=== PATIENT | female | born 1935 | race Caucasian/White ===

== ENCOUNTER 2023-08-27 18:59 | Inpatient (IN) | payer MEDICARE, BC, SELFPAY ==
[2023-08-27] VITALS (11 sets, daily range): BP systolic 104–134; BP diastolic 54–94; BMI 31.2; BMI 30.4
[2023-08-27 15:04] LABS: % Basophils 0.9 % (0-2); % Eosinophils 1.8 % (0-6); % Immature Granulocytes 0.6 % (0-0.5); % Lymphocytes 16.9 % (20.5-51.1); % Monocytes 6.4 % (1.7-9.3); % Neutrophils 73.4 % (42.2-75.2); Absolute Basophils 0.1 10^3/uL (0-0.2); Absolute Eosinophils 0.2 10^3/uL (0-0.7); Absolute Immature Granulocytes 0.1 10^3/uL (0-0.05); Absolute Lymphocytes 1.4 10^3/uL (1.2-3.4); Absolute Monocytes 0.5 10^3/uL (0.1-0.6); Hematocrit 40.3 % (37.0-47.0); Hemoglobin 13.2 g/dL (12.0-16.0); Mean Corp Hgb Conc. 32.8 g/dL (33.0-37.0); Mean Corpuscular Hgb 32.4 pg (27.0-31.0); Mean Corpuscular Volume 98.8 fL (81.0-99.0); Mean Platelet Volume 10.4 fL (7.4-10.4); Nucleated Red Blood Cells % 0 %; Platelet Count 217 10^3/uL (130-400); Red Blood Cell Count 4.08 10^6/uL (4.20-5.40); Red Cell Dist. Width 13.6 % (11.5-14.5); White Blood Cell Count 8.2 10^3/uL (4.8-10.8)
[2023-08-27 15:16] LABS: ALT (SGPT) 52 U/L (0-35); AST (SGOT) 47 U/L (14-36); Albumin 3.8 g/dl (3.5-5.0); Alkaline Phosphatase 74 U/L (38-126); Blood Urea Nitrogen 55 mg/dl (7-17); Calcium 9.4 mg/dl (8.4-10.2); Carbon Dioxide 29 mmol/L (22-30); Chloride 102 mmol/L (98-107); Glucose 99 mg/dl (70-99); Potassium 3.9 mmol/L (3.5-5.1); Sodium 138 mmol/L (135-145); Total Bilirubin 0.7 mg/dl (0.2-1.3); Total Protein 6.5 g/dl (6.3-8.2); eGFR 17.32
[2023-08-27 16:31] LABS: Magnesium 2.4 mg/dl (1.6-2.3)
--- NOTE | 2023-08-27 16:48 | ED.GENMED ---
Addendum entered and electronically signed by Aleksandr Marie DO 08/27/23 18:14:
Update repeat EKG shows a flutter with controlled rate heparin has been ordered patient and family updated on plan of care
Original Note:
History of Present Illness
General
Chief Complaint: Heart Rate Problem
Source: patient, records and family
Exam Limitations: none
Time Seen by Provider: 08/27/23 16:26
Nursing documentation reviewed up to this point in time: agreed with
Travel History
Have you had any contact with someone who has COVID-19?: No
Do you have any symptoms of coronavirus? Fever > 100 degrees, chills, cough, shortness of breath, sore throat, loss of taste or smell, muscle aches, or headache?: No
History of Present Illness
History of Present Illness:
88-year-old female from cardiology office found to be tachycardic she was here for routine visit she has had fatigue shortness of breath difficulty with activities of daily living found to be in A-fib with a rapid ventricular response was a new
issue for her she not on blood thinners, weight has gone down, she not eating or drinking much, states when she drinks she gets some pain in her upper abdomen, she is status post a gallbladder removal social alcohol drinker not excess none recently
She has had no fever or chills, she is not on a blood thinner
Past History
Past History
ED Past Medical History: CAD, CHF, Fibromyalgia, HTN, Hypercholesterolemia, Hypothyroidism, Other (Polymyalgia rheumatica, fatigue, psoriatic arthritis, chronic neck pain, Spinal stenosis, Ulcers, headache, PNA, Interstitial lung disease, Hiatal
hernia, ULcer) and Other (Interstitial lung disease for which she previously used O2 at nighttime--now resolved)
ED Past Surgical History: Cardiac (Stents X3), Cholecystectomy, Orthopedic (Back surgery. You Knee replacements, Laminectomy with fusion, right foot surgery, ) and Other (Hemorrhoidectomy)
Social History
Tobacco: Former smoker
Alcohol: Occasional
Drug: None
Personal:
Living: alone (Daughter staying with patient at this time 09/09/22)
Employment: Retired
Family History
Family History: Other (Noncontributory)
Review of Systems
Review of Systems
All Other Systems: Not applicable
Constitutional: Reports weight loss and fatigue; Denies fever
EENT: Reports no symptoms
Respiratory: Reports trouble breathing
Cardiac: Denies palpitations
ABD/GI: Reports abdominal pain
: Reports no symptoms
Musculoskeletal: Reports no symptoms
Neurological: Reports weakness
Endocrine: Reports no symptoms
Hematologic/Lymphatic: Reports no symptoms
Phy Exam
Physical Exam
Physical Exam:
Physical Exam
General: 88-year-old female tachycardic
Neck: Neck veins are
Heart: Tachycardia
Lungs: no acute respiratory distress. clear bilaterally
Abdomen: Nontender
Neuro: alert and oriented. no focal neurological deficits
Skin: no rash
Psychiatric: well kept. interactive and cooperative
Extremities: Trace edema
Course
Orders/Labs/Results
Orders:
Orders
08/27/23 14:38
Electrocardiogram (*1) Urgent
Reason for Study: Chest Pain
EKG- Treatment ONCE
08/27/23 14:51
Complete Blood Count/With Diff Urgent
Comprehensive Metabolic Panel Urgent
Lipase Urgent
Comment: ADD ON
Magnesium Urgent
Comment: ADD ON
TSH Urgent
Comment: ADD ON
08/27/23 16:00
Add On- LAB Urgent
Tests Added?: TSH/magnesium
08/27/23 16:40
Troponin I Urgent
Diltiazem 125 mg/125 ml Nss [Cardizem] 125 mg in 125 ml IV NOW
Initial dose in mg/hr, then titrate:: 5
Titrate to keep:: Heart rate 80-100 bpm
Titrate by mg/hr:: 5 mg/hr
Frequency of titrations (minutes):: 15
Maximum dose in mg/hr:: 15
Diltiazem HCl [Cardizem] 10 mg IV NOW STA
08/27/23 16:41
Add On- LAB Urgent
Tests Added?: lipase, tsh, mg
CR Chest Portable - 1 View Urgent
Comment:
Reason For Exam: hr 140
Reason Study Needs to be Portable: Patient Unstable
08/27/23 17:15
0.9% Sodium Chloride 1000 ml [Nss] 1,000 ml IV 125 mls/hr
Abnormal Lab Results
08/27/23
14:51
RBC 4.08 L 10^6/uL
(4.20-5.40)
MCH 32.4 H pg
(27.0-31.0)
MCHC 32.8 L g/dL
(33.0-37.0)
Abs Immat Gran (auto) 0.1 H 10^3/uL
(0-0.05)
Immature Gran % 0.6 H %
(0-0.5)
Lymphocytes % 16.9 L %
(20.5-51.1)
BUN 55 H mg/dl
(7-17)
Creatinine 2.6 H mg/dL
(0.6-1.0)
Magnesium 2.4 H mg/dl
(1.6-2.3)
AST 47 H U/L
(14-36)
ALT 52 H U/L
(0-35)
08/27/23 14:51
08/27/23 14:51
Vital Signs
Initial and Last Documented VS:
Initial Vital Signs
Temp Pulse Resp BP Pulse Ox
98.3 F 139 18 127/67 92
08/27/23 14:36 08/27/23 14:36 08/27/23 14:36 08/27/23 14:36 08/27/23 14:36
Last Documented Vital Signs
Temp Pulse Resp BP Pulse Ox
98.3 F 142 20 134/68 97
08/27/23 14:36 08/27/23 16:55 08/27/23 16:30 08/27/23 16:55 08/27/23 16:27
MDM/Problems Addressed
Differential Diagnosis Includes:
A-fib with rapid ventricular response hyperthyroid occult infection valvular disease
MDM/Problems Addressed:
Fatigue shortness of breath rapidly
Chronic conditions affecting care: Cardiomyopathy
Acute Exacerbation and/or Progression of Chronic Illness: Cardiomyopathy
*Radiology
Radiology exam reviewed: preliminary read by ED provider
*Pulse Oximetry
Patient hypoxic: no
*EKG
Interpreted by ED Provider?: Yes
Interpretation: abnormal
Comparison EKG: changes noted
Heart Rate: 140
Rate: tachycardiac
Rhythm: atrial flutter
Ischemia: non-specific ST changes
*Systems [employer] Programming Lead Interpretation
Rate: tachycardiac
Interpretation: abnormal
Heart Rate: 148
Rhythm: a-fib
*Critical Care Note
Total Time (30-74mins, 75-104mins- exclusive of procedures): 30
Update Note
Update Note:
5:10 PM labs are noted chest x-ray pending looks to have acute kidney injury, will start saline hydration hospitalist and despatching and receiving clerk notified of admission
ED Attending Note
-
Portions of this chart may have been created with voice recognition software.� Occasional wrong word or��sound alike� substitutions may have occurred due to the inherent limitations of voice recognition software.
Discharge Plan
Departure
Patient Disposition: Admit
Date of Disposition: 08/27/23
Time of Disposition: 17:10
Admit to: Telemetry
Presentation/result/management discussed w/ accepting MD/DO: Hospitalist
Patient with high blood pressure during this ER visit?: No
Condition: Fair
Covid-19: Not Applicable
Discharge Problem:
Atrial fibrillation with RVR, CAMRON (acute kidney injury)
Prescriptions:
No Action
venlafaxine 75 MG capsule,extended release 24hr
75 mg PO DAILY
prednisone 5 MG tablet
5 mg PO QPM
Patient Comments:
cholecalciferol (vitamin D3) 1,000 UNITS tablet
1,000 units PO QPM
ezetimibe 10 MG tablet
10 mg PO QPM
aspirin 81 MG tablet,delayed release (DR/EC)
81 mg PO HS
omeprazole 40 mg capsule,delayed release(DR/EC)
40 mg PO DAILY
famotidine 20 mg Tablet
20 mg PO HS
therapeutic multivitamin Tablet
1 tab PO QPM
Simponi ARIA
1 dose IV Q8W
levothyroxine 75 mcg Tablet
75 mcg PO DAILY AT 0700 30 Days Qty: 30 0RF
metoprolol succinate 50 mg tablet extended release 24 hr
50 mg PO BID
oxycodone-acetaminophen 10-325 mg tablet
1 tab PO BID PRN (Reason: severe pain)
Patient Comments:
08/27/2023: last filled 08/12/23, 60 tabs for 30 days from [id number]
furosemide 40 mg tablet
40 mg PO DAILY
Interventions
Interventions:
*Risk Screen - Suicide Last Done: 08/27/23 14:36
*General Assessment Last Done: 08/27/23 14:36
*Neglect/Abuse Screening Last Done: 08/27/23 14:36
ED- Fall Risk Assessment Last Done: 08/27/23 16:27
*ED COVID-19 Vaccine History Last Done: 08/27/23 14:36
ED- Cardiac Assessment Last Done: 08/27/23 16:27
ED- Pulmonary Assessment Last Done: 08/27/23 16:27
[2023-08-27] MEDS: CARDIZEM 10 MG IV (16:55)
[2023-08-27 16:56] LABS: Lipase 116 U/L (23-300)
[2023-08-27] MEDS: CARDIZEM 125 IV ×2 (16:58→19:41)
--- NOTE | 2023-08-27 17:02 | EDRN ---
Patient medicated with Cardizem 10mg IV and drip started at 5mg/HR.
[2023-08-27 17:21] LABS: TSH 5.21 uIU/ml (0.47-4.68)
[2023-08-27] MEDS: NSS 1000 IV ×2 (17:45→21:26)
[2023-08-27 17:50] LABS: Troponin I 0.152 ng/ml
--- NOTE | 2023-08-27 17:56 | HPS.HSE ---
Family Physician
-
Family Physician: NOT KNOW UNKNOWN - PT DOES
Chief Complaint
-
shortness of breath
History of Present Illness
88-year-old female past medical history of coronary artery disease status post stents, HFpEF, mild aortic stenosis, interstitial lung disease on 2 L at bedtime, CKD 3, hypertension, hyperlipidemia, hypothyroidism, polymyalgia rheumatica,
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 Patient had routine visit with lighting engineering technician
today. She was found to be in A-fib with RVR at lighting engineering technician office. No prior history of A-fib. She has been having shortness of breath with minimal exertion for the past several months and fatigue. She denies any chest pain or palpitations or
dizziness. She denies any lower extreme edema. She follows fluid restriction and has been having very dry mouth recently.
She has also been complaining of abdominal pain attacks that occur whenever she drinks liquids. Pain last 15 minutes and then subsides. She denies any abdominal distention. She sometimes feels nauseous but denies any vomiting. She denies any
diarrhea or constipation. She has lost 20 pounds in the past 6 months but she has not been eating or drinking much. She does have some difficulty swallowing solids but not liquids.
She denies any blood in the stool or black stool. She did have an episode of hemorrhoidal bleeding in the past which self resolved.
She is a former smoker. She rarely drinks alcohol.
Medical History
Past Medical History
Past Medical History: Reports Other ( coronary artery disease status post stents, HFpEF, mild aortic stenosis, interstitial lung disease on 2 L at bedtime, CKD 3, hypertension, hyperlipidemia, hypothyroidism, polymyalgia rheumatica, fibromyalgia,
psoriatic arthritis, cervical radiculopathy, spinal stenosis, hiatal hernia, anxiety, susp)
Past Surgical History: Reports Other (Cardiac (Stents X3), Cholecystectomy, Orthopedic (Back surgery. You Knee replacements, Laminectomy with fusion, right foot surgery, ) and Other (Hemorrhoidectomy))
Social History
Tobacco: Former Smoker
Alcohol: Occasional
Drug: None
Family History
Family History: Not pertinent
Allergies / Home Medications
Allergies reflects when Allergies were last updated in [employer].
Home Medications with original date entered in [employer]
Allergy/Medication List:
Allergies
Allergy/AdvReac Type Severity Reaction Status Date / Time
hydroxychloroquine sulfate Allergy Rash Verified 08/27/23 14:35
[From Plaquenil]
Penicillins Allergy Itching Verified 08/27/23 14:35
Home Medications
venlafaxine 75 mg capsule,extended release 24 hr 75 mg PO DAILY Mental Health/Anxiety 12/09/17
prednisone 5 mg tablet 5 mg PO QPM INFLAMMATION 01/05/18
aspirin 81 mg tablet,delayed release 81 mg PO HS Blood clot prevention/tx 08/11/18
cholecalciferol (vitamin D3) 25 mcg (1,000 unit) tablet 1,000 units PO QPM Supplement 08/11/18
ezetimibe 10 mg tablet 10 mg PO QPM High cholesterol 08/11/18
omeprazole 40 mg capsule,delayed release 40 mg PO DAILY Gastrointestinal issue 09/09/22
famotidine 20 mg tablet 20 mg PO HS Gastrointestinal Issue 03/03/23
Simponi ARIA 1 dose IV Q8W 06/03/23
therapeutic multivitamin 1 tab PO QPM 06/03/23
levothyroxine 75 mcg tablet 75 mcg PO DAILY AT 0700 30 days #30 tabs 06/06/23
furosemide 40 mg tablet 40 mg PO DAILY Fluid retention/Swelling 08/27/23
metoprolol succinate 50 mg tablet,extended release 24 hr 50 mg PO BID 08/27/23
oxycodone-acetaminophen 10 mg-325 mg tablet 1 tab PO BID PRN severe pain 08/27/23
Review of Systems
-
History Source: Patient
A 12 point ROS was completed and negative except as noted: Yes
Constitutional: Reports No Symptoms
EENT: Reports No Symptoms
Respiratory: Reports See HPI
Cardiac: Reports No Symptoms
Abdomen/GI: Reports See HPI
: Reports No Symptoms
Musculoskeletal: Reports No Symptoms
Skin: Reports No Symptoms
Neurological: Reports No Symptoms
Endocrine: Reports No Symptoms
Hematologic/Lymphatic: Reports No Symptoms
Psych: Reports No Symptoms
Physical Exam
Vital Signs
Vital Signs
Temp Pulse Resp BP Pulse Ox
98.3 F 141 28 125/79 95
08/27/23 14:36 08/27/23 17:00 08/27/23 17:00 08/27/23 17:00 08/27/23 17:00
Physical Exam
General: Well Developed, Well Nourished and No Apparent Distress
HEENT: NormoCephalic, Moist mucous membranes and Atraumatic
Respiratory: Clear
Cardiac: S1/S2 and Regular Rhythm; No Murmur or Rub
GI: Soft, Non Tender, Non Distended and Normal Bowel Sounds; No Organomegaly
Rectal: Deferred by Provider
Musculoskeletal: No Clubbing, No Cyanosis and No Edema
Skin: No Rash
Neuro: Nonfocal/grossly intact
Laboratory Results
-
08/27/23 14:51
Laboratory Results
Total Bilirubin 0.7 mg/dl (0.2-1.3) 08/27/23 14:51
AST 47 U/L (14-36) H 08/27/23 14:51
ALT 52 U/L (0-35) H 08/27/23 14:51
Alkaline Phosphatase 74 U/L (38-126) 08/27/23 14:51
Troponin I 0.152 ng/ml H* 08/27/23 17:05
Lipase 116 U/L (23-300) 08/27/23 14:51
Data Reviewed
-
Lab Data: Labs Reviewed by me
Old Records: Reviewed
Impression/Plan
-
IMPRESSION:
PLAN:
# New onset atrial fibrillation with RVR
-Cardizem drip started
-Check TSH
-Chads Vasc score of 5
-Start heparin drip
-patient recently had echo in May
-Cardiology consult
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
-Creatinine of 2.6 from 1.5
-IV fluids given in ER, continue gentle maintenance fluids as patient appears dry
# Abdominal pain/dysphagia to solids/weight loss suggestive of underlying GI pathology such as ulcer/esophagitis/GI malignancy
#hx of Hiatal hernia/GERD
-Continue omeprazole, famotidine
-GI consulted
Coronary artery disease status post stents
-hold aspirin since on heparin
Chronic HFpEF
-Hold Lasix
Moderate Mitral Regurgitation
Mild aortic stenosis
Interstitial lung disease on 2 L at bedtime
History of hemorrhoidal bleeding
Essential hypertension
-Continue metoprolol
Hyperlipidemia
-Continue Zetia
Hypothyroidism
-Continue levothyroxine
Polymyalgia rheumatica
-Continue prednisone
Fibromyalgia
-Continue Percocet
Psoriatic arthritis
Cervical radiculopathy
Spinal stenosis
Anxiety
-Continue venlafaxine
History of shingles
Former smoker
Full code
DVT prophylaxis-heparin drip
Cardiac diet
[2023-08-27] MEDS: HEPARIN 25000 UNITS/250 ML IV (18:12)
[2023-08-27] MEDS: HEPARIN 4000 UNITS IV (18:12)
[2023-08-27 18:14] LABS: APTT 31.7 Sec (23.4-35.0)
--- NOTE | 2023-08-27 20:42 | PTCARENOTE ---
pt arrived from ed. with Cardizem gtt at 5 and heparin gtt 9.5. pt aaox3, VSS, tele placed, see MAR and assessment for further details. call valdes within reach.
[2023-08-27] MEDS: THERAGRAN 1 TABLET PO (20:50)
[2023-08-27] MEDS: VITAMIN D3 (cholecalciferol) 25 MCG PO (20:50)
[2023-08-27] MEDS: DELTASONE 5 MG PO (20:50)
[2023-08-27] MEDS: ZETIA 10 MG PO (20:50)
[2023-08-27] MEDS: TOPROL XL 50 MG PO (20:59)
[2023-08-27] MEDS: PEPCID 20 MG PO (20:59)
[2023-08-27 21:13] LABS: Hematocrit 38.2 % (37.0-47.0); Hemoglobin 12.8 g/dL (12.0-16.0); Mean Corp Hgb Conc. 33.5 g/dL (33.0-37.0); Mean Corpuscular Hgb 32.2 pg (27.0-31.0); Mean Platelet Volume 10.5 fL (7.4-10.4); Platelet Count 219 10^3/uL (130-400); Red Blood Cell Count 3.98 10^6/uL (4.20-5.40); Red Cell Dist. Width 13.7 % (11.5-14.5)
[2023-08-28 00:07] LABS: APTT > 200 Sec (23.4-35.0)
[2023-08-28 00:09] LABS: Troponin I 0.142 ng/ml
[2023-08-28 03:01] VITALS: BP 115/61
[2023-08-28 06:00] VITALS: BMI 30.5
[2023-08-28] MEDS: SYNTHROID 75 MCG PO (06:11)
--- NOTE | 2023-08-28 06:43 | W.PN.HOSP.TC ---
Today's Communication/Plan
-
cont hep gtt
hold lasix
gentle IV hydration
monitor renal function
daily weight I/O
Upper GI series evaluation as per GI
Rate control as per Cardio
Assessment / Plan
Assessment / Plan
Physical Exam
General: Well Developed, Well Nourished and No Apparent Distress
HEENT: NormoCephalic, Moist mucous membranes and Atraumatic
Respiratory: Clear
Cardiac:Irregularly Irregular
GI: Soft, Non Tender, Non Distended and Normal Bowel Sounds; No Organomegaly
Musculoskeletal: No Clubbing, No Cyanosis and No Edema
Skin: No Rash
Neuro: AOx3
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
last 15 minutes and then subsides.� reports intermittent nausea denies vomiting.� Reported weight loss 20 pounds in the past 6 months with associate appetite loss.�
# New onset atrial fibrillation with RVR
-Cardizem drip converted to metoprolol as per Cardio
-TSH
-Chads Vasc score of 5
-cont heparin drip
-patient recently had echo in May
-Cardiology consult appreciated
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
-Creatinine of 2.6 from baseline 1.5
-cont IVF
-monitor renal function, consider nephro eval if Cr elevation persists
# Abdominal pain/dysphagia to solids/weight loss suggestive of underlying GI pathology such as ulcer/esophagitis/GI malignancy
#hx of Hiatal hernia/GERD
-Continue omeprazole, famotidine
-GI consult appreciated npo after midnight for upper GI series, Abd US appreciated likely fatty liver disease.
Coronary artery disease status post stents
-hold aspirin since on heparin
Chronic HFpEF
-Hold Lasix
Moderate Mitral Regurgitation�
Mild aortic stenosis
Interstitial lung disease on 2 L at bedtime
History of hemorrhoidal bleeding
Essential hypertension
-Continue metoprolol
Hyperlipidemia
-Continue Zetia
Hypothyroidism
-Continue levothyroxine
Polymyalgia rheumatica
-Continue prednisone
Fibromyalgia
-Continue Percocet
Psoriatic arthritis
Cervical radiculopathy
Spinal stenosis
Anxiety
-Continue venlafaxine
History of shingles
Former smoker
Full code
DVT prophylaxis-heparin drip
GI ppx Protonix
Cardiac diet
I spent a total of 50 minutes with the patient or on the floor. More than 50% of this time involved counseling and coordination of care.
Anticipated Discharge: 24 - 48 hours
Subjective/Interval History
-
Date of Service: August 28, 2023
Seen and examined at bedside in no acute distress resting comfortably in bed. Reports feeling well, appetite/abd symptoms improved since admission. reports palpitations but denies chest pain.
Objective Data
-
Labs:
Laboratory Results
08/27/23 08/27/23 08/28/23
21:07 23:23 06:00
WBC 8.0 Pending
Hgb 12.8 Pending
Hct 38.2 Pending
Plt Count 219 Pending
APTT > 200 H*
Sodium Pending
Potassium Pending
Chloride Pending
Carbon Dioxide Pending
BUN Pending
Creatinine Pending
Glucose Pending
Calcium Pending
Total Bilirubin Pending
AST Pending
ALT Pending
Alkaline Phosphatase Pending
08/28/23
08:10
WBC
Hgb
Hct
Plt Count
APTT Pending
Sodium
Potassium
Chloride
Carbon Dioxide
BUN
Creatinine
Glucose
Calcium
Total Bilirubin
AST
ALT
Alkaline Phosphatase
Vital Signs:
Vital Signs
Temp Pulse Resp BP Pulse Ox
97.7 F 86 18 115/61 95
08/28/23 03:01 08/28/23 03:01 08/28/23 03:01 08/28/23 03:01 08/28/23 03:01
I&O
08/26/23 08/27/23 08/28/23
06:59 06:59 06:59
Intake Total 240 / 240
Balance 240 / 240
[2023-08-28 07:00] VITALS: BP 129/55
[2023-08-28] MEDS: EFFEXOR XR 75 MG PO (07:47)
[2023-08-28] MEDS: PROTONIX 40 MG PO (07:47)
[2023-08-28] MEDS: TOPROL XL 50 MG PO ×2 (07:47→21:02)
[2023-08-28 08:41] LABS: % Basophils 0.4 % (0-2); % Eosinophils 0.9 % (0-6); % Immature Granulocytes 0.3 % (0-0.5); % Lymphocytes 17.9 % (20.5-51.1); % Neutrophils 73.5 % (42.2-75.2); Absolute Eosinophils 0.1 10^3/uL (0-0.7); Absolute Lymphocytes 1.4 10^3/uL (1.2-3.4); Absolute Monocytes 0.5 10^3/uL (0.1-0.6); Absolute Neutrophils 5.6 10^3/uL (1.4-6.5); Hematocrit 36.7 % (37.0-47.0); Hemoglobin 12.1 g/dL (12.0-16.0); Mean Corpuscular Hgb 31.7 pg (27.0-31.0); Mean Corpuscular Volume 96.1 fL (81.0-99.0); Mean Platelet Volume 10.7 fL (7.4-10.4); Nucleated Red Blood Cells % 0 %; Platelet Count 214 10^3/uL (130-400); Red Blood Cell Count 3.82 10^6/uL (4.20-5.40); Red Cell Dist. Width 13.4 % (11.5-14.5); White Blood Cell Count 7.6 10^3/uL (4.8-10.8)
[2023-08-28 08:53] LABS: APTT 91.5 Sec (23.4-35.0)
[2023-08-28 09:08] LABS: ALT (SGPT) 44 U/L (0-35); AST (SGOT) 38 U/L (14-36); Albumin 3.7 g/dl (3.5-5.0); Alkaline Phosphatase 73 U/L (38-126); Blood Urea Nitrogen 53 mg/dl (7-17); Calcium 8.7 mg/dl (8.4-10.2); Carbon Dioxide 25 mmol/L (22-30); Chloride 104 mmol/L (98-107); Estimated Creatinine Clearance 15 ml/min; Glucose 102 mg/dl (70-99); Potassium 3.7 mmol/L (3.5-5.1); Sodium 138 mmol/L (135-145); Total Bilirubin 0.6 mg/dl (0.2-1.3); Total Protein 6.2 g/dl (6.3-8.2); eGFR 18.16
--- NOTE | 2023-08-28 09:18 | CON.GI ---
Addendum entered and electronically signed by Jen Knutson Do, MD 08/28/23 14:52:
I saw and examined the patient.
The CONVERTIBLE TOP INSTALLER's note was reviewed and I agree with the note.
Comment: Leigh is an 88yo W with h/o CAD s/p stent, , ILD on 2L NC who was sent to [facility] from Dr Santos's office for SOB and aflutter. She tells me that she's lost wt and had intermittent abd pain. She does chronically use opioid for spinal
stenosis and no bowel regimen. She denies h/o constipation though. She is known to myself for these intermittent chronic issues for which extensive outpt GI workup had been done which includes MRI 10/2022, fibroscan, EUS, EGD/colonoscopies. Exam
VSS HR to 74. Labs reviewed without anemia. AST/ALT mildly elevated
Impression
- Abd pain with poor PO intake
- Fatty liver
- GERD
- s/p CYY
- Afib with RVR
- CKD
- GERD
- CAD s/p stents
- MR and
- ILD on 2L NC
- HTN
- PMR on steroids
- Hypothyroidism
- Hemorrhoids
- Fibromyalgia
- Anxiety
Recommendations
- Abd US given elevated LFTs
- Prior EGD/colon and MRI reviewed
- C/w cardiac diet, NPO at [facility] for UGI series tomorrow
- C/w PPI and H2B
- Start bowel regimen (miralax daily basis)
Will follow with you
Original Note:
Consultation
-
Date/Time Consultation Requested: 08/27/23 2310
Date/Time Consultation Performed: 08/28/23 0900
Requesting Provider: Dr. Townsend
Performing Provider: Dr. Acevedo/WARREN Fuchs
Reason for Consultation: abdominal pain
Medical History
Chief Complaint / HPI
Chief Complaint: SOB
History of Present Illness:
88yo female with PMH coronary artery disease status post stents, CHF, aortic stenosis, interstitial lung disease on supplemental oxygen 2 L at bedtime, CKD 3, hypertension, hyperlipidemia, hypothyroidism, PMR on chronic steroids, fibromyalgia on
chronic opioids, psoriatic arthritis, cervical radiculopathy, spinal stenosis, hiatal hernia, anxiety, gastroesophageal reflux disease, history of peptic ulcer disease/DU in 2018 with EGD done in January 2023 showing 2 cm hiatal hernia, fundic gland
polyps, erythema in the stomach with negative biopsies. The patient has a history of cholecystectomy with dilatation of the biliary tract with benign prior workup in 2019 with MRI/MRCP and EUS. She has a history of fatty liver but FCR on FibroScan
in December 2020 with normal LFTs. The patient was at a routine cardiology visit yesterday when she was found to be in A-fib with RVR. She had no prior history of A-fib and she had complained of shortness of breath with minimal exertion over the past
several months as well as fatigue. She also complains of intermittent abdominal pain which she calls 'attacks'. We are asked to evaluate for the same. The patient states that she has been having episodes of when she drinks liquids shortly there
after she will have an attack across to her 'stomach'. She states this is different from her abdomen. She states then she will have acute onset of shortness of breath that will last a couple minutes to a couple hours. She states that she will
just wait and let time pass and will not try any maneuvers medications or call somebody. She states that she will have some associated nausea but never vomits with this. She has not noticed any change in her bowel habits. She states that she has
been eating less solids and more liquids. She also has noted some associated solid food dysphagia but has not told anybody. She denies any fevers, chills, vomiting, melena, hematochezia, odynophagia. She does have early satiety and has had
unintentional weight loss although she cannot quantify. Looking back at Hospital records the patient is currently 75 kg, in June she was 76 kg and in February she was 77 to 78 kg.
Past Medical History
Past Medical History: CAD, CHF, Fibromyalgia, GERD, HTN, Hypercholesterolemia and Other (Aortic stenosis, interstitial lung disease, PMR, psoriatic arthritis, cervical radiculopathy, spinal stenosis, hiatal hernia, anxiety, peptic ulcer disease/DU
(2019))
Past Surgical History: Cardiac (Cardiac stent), Cholecystectomy, Orthopedic (Back surgery, bilateral knee replacements, laminectomy with fusion, right foot surgery) and Other (Hemorrhoidectomy)
Social History
Tobacco: Former Smoker
Alcohol: Occasional
Drug: None
Personal:
Employment: Retired
Family History
Family History: Other (No family history of gastrointestinal malignancy or inflammatory bowel disease)
Allergies / Home Medications
Allergy/AdvReac Type Severity Reaction Status Date / Time
hydroxychloroquine sulfate Allergy Rash Verified 08/27/23 14:35
[From Plaquenil]
Penicillins Allergy Itching Verified 08/27/23 14:35
Medication Instructions Recorded
venlafaxine 75 mg capsule,extended 75 mg PO DAILY Mental 12/09/17
release 24 hr Health/Anxiety
prednisone 5 mg tablet 5 mg PO QPM INFLAMMATION 01/05/18
aspirin 81 mg tablet,delayed 81 mg PO HS Blood clot 08/11/18
release prevention/tx
cholecalciferol (vitamin D3) 25 1,000 units PO QPM Supplement 08/11/18
mcg (1,000 unit) tablet
ezetimibe 10 mg tablet 10 mg PO QPM High cholesterol 08/11/18
omeprazole 40 mg capsule,delayed 40 mg PO DAILY Gastrointestinal 09/09/22
release issue
famotidine 20 mg tablet 20 mg PO HS Gastrointestinal Issue 03/03/23
Simponi ARIA 1 dose IV Q8W 06/03/23
therapeutic multivitamin 1 tab PO QPM 06/03/23
levothyroxine 75 mcg tablet 75 mcg PO DAILY AT 0700 30 days 06/06/23
#30 tabs
furosemide 40 mg tablet 40 mg PO DAILY Fluid 08/27/23
retention/Swelling
metoprolol succinate 50 mg 50 mg PO BID 08/27/23
tablet,extended release 24 hr
oxycodone-acetaminophen 10 mg-325 1 tab PO BID PRN severe pain 08/27/23
mg tablet
Review of Systems
-
All other systems: A 12 pt ROS was Negative except as stated above in HPI
Vital Signs
Temp Pulse Resp BP Pulse Ox
98.0 F 78 18 129/55 92
08/28/23 07:00 08/28/23 07:47 08/28/23 07:00 08/28/23 07:47 08/28/23 07:00
Physical Exam
Exam
General: No Apparent Distress
HEENT: Anicteric
Respiratory: Other (Mild inspiratory wheeze right upper lung, fine crackles left base with mild decrease left base)
Cardiac: Irregular Rhythm
GI: Soft, Non Tender, Non Distended and Normal Bowel Sounds
Musculoskeletal: Edema (Trace edema bilateral lower extremity)
Skin: Warm and Dry
Neuro: AO x 3
Psych: Calm
Results
WBC 7.6 10^3/uL (4.8-10.8) 08/28/23 08:04
Hgb 12.1 g/dL (12.0-16.0) 08/28/23 08:04
Hct 36.7 % (37.0-47.0) L 08/28/23 08:04
MCV 96.1 fL (81.0-99.0) 08/28/23 08:04
Plt Count 214 10^3/uL (130-400) 08/28/23 08:04
Absolute Neuts (auto) 5.6 10^3/uL (1.4-6.5) 08/28/23 08:04
APTT 91.5 Sec (23.4-35.0) H 08/28/23 08:04
Sodium 138 mmol/L (135-145) 08/28/23 08:04
Potassium 3.7 mmol/L (3.5-5.1) 08/28/23 08:04
Chloride 104 mmol/L (98-107) 08/28/23 08:04
Carbon Dioxide 25 mmol/L (22-30) 08/28/23 08:04
BUN 53 mg/dl (7-17) H 08/28/23 08:04
Creatinine 2.5 mg/dL (0.6-1.0) H 08/28/23 08:04
Calcium 8.7 mg/dl (8.4-10.2) 08/28/23 08:04
Total Bilirubin 0.6 mg/dl (0.2-1.3) 08/28/23 08:04
AST 38 U/L (14-36) H 08/28/23 08:04
ALT 44 U/L (0-35) H 08/28/23 08:04
Alkaline Phosphatase 73 U/L (38-126) 08/28/23 08:04
Lipase 116 U/L (23-300) 08/27/23 14:51
Diagnostic Image Results:
CXR:
IMPRESSION:
Mild blunting of the left lateral costophrenic angle, stable from previous examinations, and could represent small left pleural effusion versus chronic pleural thickening.
-Type normal cardiac silhouette size with no evidence for pulmonary edema.
Electronically signed by Caleb Lau MD 08/27/2023 9:33 PM
Prior GI Procedures:
---01/21/23 EGD (Do) - Normal esophagus.
�� � � � � � � � � � � - A few gastric polyps. Resected and retrieved.
�� � � � � � � � � � � - Erythematous mucosa in the antrum. Biopsied.
�� � � � � � � � � � � - 2 cm hiatal hernia.
�� � � � � � � � � � � - Normal examined duodenum. Biopsied.
--10/2022 MRI/MRCP: There is central intrahepatic bile duct dilation as well as dilation of the common hepatic duct and the superior to midportion of the common bile duct. Similar appearance to CT examination of December 20, 2018, with no evidence for
bile duct calculus and no evidence for an obstructing mass. These findings are likely physiologic after cholecystectomy. Mild diffuse fatty infiltration of the liver. No evidence of a focal hepatic lesion. Small less than 5 mm cysts involving the
body and tail of the pancreas which are compatible with benign cysts. No imaging follow-up is advised in this 87-year-old patient. 1.3 cm hyperdense cyst arising in the medial lower pole of the left kidney�������
--12/2020 Fibroscan fibrosis score of F0�������
--03/09/[address] Rodriguez CBD dilation s/p cholecystectomy no e/o stones or masses.�������
--12/2019 Abd US revealed fatty infiltration of the liver, no focal hepatic lesion, cholecystectomy, CBD measuring 1.7 cm.�������
--02/[address] Acevedo on LA grade B esophagitis, irregular Z line, antral erythema, 2 cm hiatal hernia, few nonbleeding superficial gastric ulcer with no stigmata of bleeding in the gastric antrum, largest lesion was 3 mm in largest dimension. One
nonbleeding superficial duodenal ulcer with no stigmata of bleeding in the duodenal bulb.�������
--07/28/[address] Acevedo 2 cm hiatal hernia, a few gastric polyps, normal duodenum. Prior duodenal ulcer no longer visible�������
--[address] Pearson small internal hemorrhoids, otherwise normal.
Assessment / Plan
-
88yo female with PMH coronary artery disease status post stents, CHF, aortic stenosis, interstitial lung disease on supplemental oxygen 2 L at bedtime, CKD 3, hypertension, hyperlipidemia, hypothyroidism, PMR on chronic steroids, fibromyalgia on
chronic opioids, psoriatic arthritis, cervical radiculopathy, spinal stenosis, hiatal hernia, anxiety, gastroesophageal reflux disease, history of peptic ulcer disease/DU in 2018 with EGD done in January 2023 showing 2 cm hiatal hernia, fundic gland
polyps, erythema in the stomach with negative biopsies. The patient has a history of cholecystectomy with dilatation of the biliary tract with benign prior workup in 2019 with MRI/MRCP and EUS. She has a history of fatty liver but FCR on FibroScan
in December 2020 with normal LFTs. The patient was at a routine cardiology visit yesterday when she was found to be in A-fib with RVR. She had no prior history of A-fib and she had complained of shortness of breath with minimal exertion over the past
several months as well as fatigue. She also complains of intermittent abdominal pain which she calls 'attacks'. Patient currently on heparin drip, elevated troponin but flat and downward trending 0.140 (0.142, 0.152). Patient did have some solid
breakfast this morning without any complaints. Did have a solid brown bowel movement this morning. Hemoglobin stable and baseline. Patient with CAMRON on CKD. Patient with mildly elevated AST (38)and ALT (52) with normal Alk phos and Bili.
Impression:
Afib with RVR on Heparin gtt
Intermitttent Abdominal pain
Intermittent solid food dysphagia
Mild elevation AST/ALT
CAMRON on CKD
Other chronic conditions: CHF, interstitial lung disease, aortic stenosis, hypertension, hyperlipidemia, hypothyroidism, PMR, spinal stenosis
Plan:
-Continue Pantoprazole 40 mg
-On Famotidine already
-Patient on gentle IVF per IM
-Continue on Heparin gtt and Cardizem gtt
-Check Upper GI with esophagram
-Trend LFTs likely secondary to fatty liver and congestive hepatopathy.
-Obtain US abdomen with dopplers
Data Reviewed
-
Radiology: Report Reviewed by me
Old Records: Reviewed
-
-
Thank you for consultation and allowing me to participate in the patient's care. Please call the [employer] special ed teacher GI physician during the after hours with any questions or concerns.
[2023-08-28] MEDS: NSS 1000 IV (10:51)
[2023-08-28 11:00] VITALS: BP 117/56
[2023-08-28] MEDS: CARDIZEM 125 IV (11:02)
--- NOTE | 2023-08-28 14:42 | CON.CAR ---
Addendum entered and electronically signed by Isidro Valdes DO 08/28/23 18:17:
I saw and examined the patient.
The Senior Net Engineer's note was reviewed and I agree with the note.
Comment:
Plan:
Remains in atrial flutter with improved heart rate control on IV Cardizem. Transition to oral Toprol XL 50 mg twice daily. If heart rates increase could consider resuming IV Cardizem.
Continue IV heparin. IV heparin may be held for any GI procedures that are necessary.
Could eventually consider JIAN cardioversion once no further GI procedures are planned. With good rate control and anticoagulation this could be considered as an outpatient.
Recent echo with preserved EF.
Patient is stable from a cardiac standpoint for further GI workup.
Family was updated.
Original Note:
Consultation
Consultation Request
Date/Time Consultation Requested: 08/27/23 at 2309
Date/Time Consultation Performed: 08/28/23 at 1500
Requesting Provider: Dr. Lawler
Performing Provider: Dr. Santos
Reason for Consultation: Newly diagnosed atrial flutter
Medical History
-
History of Present Illness:
Patient came to ER from the cardiology office yesterday with new atrial flutter but also complains of weight loss and dysphagia, she is now admitted with plan for GI workup and cardiology has been consulted for ongoing atrial flutter. Patient
was seen by Dr. Santos in the office 08/27/2023 and had complaints including severe weakness and poor p.o. intake. He was found to be in atrial flutter with 2-1 block at rest. She has no history of atrial arrhythmia. She was sent to ER
thinking that she would need workup for her abdominal pain and weight loss. The patient has been seen by gastroenterology and the plan is for an upper GI series in the morning. She also had an abdominal ultrasound performed earlier today. In the
meantime she has remained in atrial flutter and is on a Cardizem drip at 5 mg/hr with HRs in the 80s to 90s and she denies any palpitations. She says she has ongoing dyspnea on exertion. Her troponin was elevated initially at 0.152 and trended
down thereafter. She has a history of CAD with previous LAD PCI in 2004, RCA PCI in 2010 and obtuse marginal stent in 2017. Her last ischemic evaluation was May 2018 that showed a small partially reversible inferolateral defect that was
improved from previous stress test.
PMH:
CAD
s/p OM stent 10/08/17 with residual 40% stenosis of mid LAD and 50-60% stenosis of prox PDA
PCI RCA 07/2010 ([facility])
PCI LAD 2004 ([facility])
Chronic HFpEF
HTN
Hypertension
Mild peak/mean 22/13 mmHg and TAM 1.4 cm sq
HTN
Psoriatic arthritis
Polymyalgia rheumatica
Hyperlipidemia
Hx interstitial lung disease on chronic oxygen at night
Hypothyroidism
Anxiety
Fibromyalgia
Chronic dyspnea
Hx cervical radiculopathy
Statin intolerance
Hx left rotator cuff tear
Urethral stone w/ hydronephrosis 01/2018
Shingles 09/2022
Syncope 09/2022 in setting of GI illness/dehydration
Chronic pain syndrome on oxycodone daily
Past Medical History
Past Surgical History: Cardiac (PCI LAD, RCA, OM), Cholecystectomy and Orthopedic
Social History
Tobacco: Former Smoker
Alcohol: Occasional
Family History
Family History: CAD and Hypertension
Allergies / Home Medications
Allergy/AdvReac Type Severity Reaction Status Date / Time
hydroxychloroquine sulfate Allergy Rash Verified 08/27/23 14:35
[From Plaquenil]
Penicillins Allergy Itching Verified 08/27/23 14:35
Medication Instructions Recorded Confirmed Type
venlafaxine 75 mg capsule,extended 75 mg PO DAILY Depression 12/09/17 08/27/23 History
release 24 hr
prednisone 5 mg tablet 5 mg PO QPM INFLAMMATION 01/05/18 08/27/23 History
aspirin 81 mg tablet,delayed 81 mg PO HS Blood clot 08/11/18 08/27/23 History
release prevention/tx
cholecalciferol (vitamin D3) 25 1,000 units PO QPM Supplement 08/11/18 08/27/23 History
mcg (1,000 unit) tablet
ezetimibe 10 mg tablet 10 mg PO QPM High cholesterol 08/11/18 08/27/23 History
omeprazole 40 mg capsule,delayed 40 mg PO DAILY Gastrointestinal 09/09/22 08/27/23 History
release issue
famotidine 20 mg tablet 20 mg PO HS Gastrointestinal Issue 03/03/23 08/27/23 History
Simponi ARIA 1 dose IV Q8W psoriatic arthritis 06/03/23 08/27/23 History
therapeutic multivitamin 1 tab PO QPM Supplement 06/03/23 08/27/23 History
levothyroxine 75 mcg tablet 75 mcg PO DAILY AT 0700 30 days 06/06/23 08/27/23 Rx
#30 tabs
furosemide 40 mg tablet 40 mg PO DAILY Fluid 08/27/23 08/27/23 History
retention/Swelling
metoprolol succinate 50 mg 50 mg PO BID Blood Pressure 08/27/23 08/27/23 History
tablet,extended release 24 hr
oxycodone-acetaminophen 10 mg-325 1 tab PO BID PRN severe pain 08/27/23 08/27/23 History
mg tablet
Review of Systems
-
History Source: Patient and Family (son by phone)
All other systems: Negative unless noted
Physical Exam
Vital Signs
Temp Pulse Resp BP Pulse Ox
97.9 F 74 18 117/56 95
08/28/23 11:00 08/28/23 11:00 08/28/23 11:00 08/28/23 11:00 08/28/23 11:00
General: NAD, AAOX3
HEENT: EOMI, MMM
Heart: Irreg irreg, no murmur
Lungs: CTA B/L without wheeze
Abd: +BS, soft
Ext: No B/L LE edema
Neuro: Nonfocal
Lab Results
08/28/23 08:04
08/28/23 08:04
Troponin I Cancelled 08/28/23 15:00
Impression / Plan
-
PCP: Wilbert Figueroa
Concrete Floater: Dr. Santos
Impression:
Weight loss and dysphagia on admission 08/27/23
Newly diagnosed atrial flutter with RVR 08/27/23
CAMRON
Elevated Troponin
CAD
s/p OM stent 10/08/17 with residual 40% stenosis of mid LAD and 50-60% stenosis of prox PDA
PCI RCA 07/2010 ([facility])
PCI LAD 2004 ([facility])
Chronic HFpEF
HTN
Hypertension
Mild peak/mean 22/13 mmHg and TAM 1.4 cm sq
HTN
Psoriatic arthritis
Polymyalgia rheumatica
Hyperlipidemia
Hx interstitial lung disease on chronic oxygen at night
Hypothyroidism
Anxiety
Fibromyalgia
Chronic dyspnea
Hx cervical radiculopathy
Statin intolerance
Hx left rotator cuff tear
Urethral stone w/ hydronephrosis 01/2018
Shingles 09/2022
Syncope 09/2022 in setting of GI illness/dehydration
Chronic pain syndrome on oxycodone daily
Echo 01/06/18:�Mild LVH, EF 50-55% possible lateral hypokinesis, normal RV, severely dilated LA, Mild to moderate MR, Mild aortic stenosis, peak/mean gradient 29/16, aortic valve area 1.6 cm�, Mild TR, pulmonary pressure 51-56 mmHg
Echo October 2018: Ejection fraction 60-65 percent, mild MR, mild , mild-moderate AI�������
Echo 07/2020: EF 60-65%, mild with MPG 14 mm Hg, TAM 1.7 cm2.
Echo 03/04/23:�EF 55-60% with mild MR, mild , aortic root 4 cm, trace pericardial effusion
Echo 06/04/23: EF 55 to 60%, mild concentric LVH, mild mitral stenosis with mean transmitral gradient 6 mmHg, moderate MR, mild peak/mean gradient 22/13 mmHg and TAM 1.4 cm sq, trace TR with pulmonary artery systolic pressure 26 mmHg mildly
dilated aortic root
Plan:
-Patient came to ER from the cardiology office yesterday with new atrial flutter but also complains of weight loss and dysphagia, she is now admitted with plan for GI workup and cardiology has been consulted for ongoing atrial flutter. Patient
was seen by Dr. Santos in the office 08/27/2023 and had complaints including severe weakness and poor p.o. intake. He was found to be in atrial flutter with 2-1 block at rest. She has no history of atrial arrhythmia. She was sent to ER
thinking that she would need workup for her abdominal pain and weight loss. The patient has been seen by gastroenterology and the plan is for an upper GI series in the morning. She also had an abdominal ultrasound performed earlier today. In the
meantime she has remained in atrial flutter and is on a Cardizem drip at 5 mg/hr with HRs in the 80s to 90s and she denies any palpitations. She says she has ongoing dyspnea on exertion. Her troponin was elevated initially at 0.152 and trended
down thereafter. She has a history of CAD with previous LAD PCI in 2005, RCA PCI in 2010 and obtuse marginal stent in 2017. Her last ischemic evaluation was May 2018 that showed a small partially reversible inferolateral defect that was
improved from previous stress test.
-Talked with patient in room and then called and talked to her son by phone for 7 minutes on 08/28/23.
-Patient remains in atrial flutter with variable block on telemetry is reviewed by me. Recheck ECG in AM. She denies palpitations.
-Will discontinue Cardizem drip but his heart rate seem to be fairly well-controlled on Cardizem drip at 5 mghr and her usual dose of Toprol-XL 50 mg twice daily. If her heart rates increase we can restart the Cardizem drip.
-Recommend continuing with heparin drip. Patient will need eventual JIAN/CV not sure if patient's dyspnea on exertion is related to atrial flutter and poor heart rate control. This is her first documented episode of atrial arrhythmia. Talked with
the patient and her son about eventual transition to OAC in the form of Eliquis once any necessary GI workup completed.
-Initial Troponin 0.152 and trending down thereafter. Patient's son is concerned about ischemia and noted that patient has had increasing LOVELACE for weeks to months. Check echo.
-Outpatient dose of Lasix 40 mg PO daily is on hold due to CAMRON. Follow daily weights.
-EF preserved by last echo 06/04/23. Cont Toprol XL as above. Previously was on spironolactone but this was stopped due to CAMRON and hyperkalemia
[2023-08-28 15:00] VITALS: BP 119/63
--- NOTE | 2023-08-28 15:11 | CM ---
Reviewed chart, met with patient to obtain information for assessment. Patient stated that she lives alone in a single home in a [place] and [place] community. There is one step to enter.
Patient described herself as independent with her ADLs, dressing, bathing, and uses a cane to assist with her ambulation.
Patient expressed that she do fluorescent lamp replacer, cook, clean and do laundry however it is becoming more difficult. Patient drives and can get herself to all of her appointments and do all of her own shopping but again, admitted that it has become a
little harder for her to do.
Patient has a shower chair that she does not use but denied any other DME in her home.
Her daughter and son in law live close by and are supportive. She has never had VN services in the past. She has not been to a SNF.
Patient has a prescription plan and uses [facility] pharmacy in [place] for all of her medications.
Her PCP is, Dr. Wilbert Figueroa.
Patient asked for resources for an aid. Provided her with a list of private aids/web site administrator companies that can assist with fluorescent lamp replacer and errands. Patient was appreciative.
Patient would like to return home when stable but will need to watch for needs.
Plan: Case management will continue to follow and assist with discharge planning. Tentative plan is for home when stable.
[2023-08-28] MEDS: MIRALAX 17 GRAMS PO (15:12)
[2023-08-28 15:36] LABS: APTT 101.4 Sec (23.4-35.0)
[2023-08-28] MEDS: VITAMIN D3 (cholecalciferol) 25 MCG PO (17:23)
[2023-08-28] MEDS: DELTASONE 5 MG PO (17:23)
[2023-08-28] MEDS: THERAGRAN 1 TABLET PO (17:23)
[2023-08-28] MEDS: ZETIA 10 MG PO (17:23)
[2023-08-28 19:52] VITALS: BP 110/55
[2023-08-28] MEDS: PEPCID 20 MG PO (21:02)
[2023-08-28 23:51] VITALS: BP 110/52
[2023-08-29] VITALS (8 sets, daily range): BP systolic 114–149; BP diastolic 53–88; PULSE 68; O2SAT 94; BMI 31.2
[2023-08-29] MEDS: NSS 1000 IV ×2 (01:49→15:32)
[2023-08-29] MEDS: HEPARIN 25000 UNITS/250 ML IV (03:09)
[2023-08-29] MEDS: SYNTHROID 75 MCG PO (06:23)
[2023-08-29 06:27] LABS: Hematocrit 33.9 % (37.0-47.0); Hemoglobin 11.4 g/dL (12.0-16.0); Mean Corp Hgb Conc. 33.6 g/dL (33.0-37.0); Mean Corpuscular Hgb 33.1 pg (27.0-31.0); Mean Corpuscular Volume 98.5 fL (81.0-99.0); Mean Platelet Volume 10.7 fL (7.4-10.4); Platelet Count 177 10^3/uL (130-400); Red Blood Cell Count 3.44 10^6/uL (4.20-5.40); Red Cell Dist. Width 13.8 % (11.5-14.5)
[2023-08-29 06:45] LABS: ALT (SGPT) 39 U/L (0-35); AST (SGOT) 34 U/L (14-36); Albumin 3.3 g/dl (3.5-5.0); Alkaline Phosphatase 66 U/L (38-126); Blood Urea Nitrogen 48 mg/dl (7-17); Calcium 8.3 mg/dl (8.4-10.2); Carbon Dioxide 23 mmol/L (22-30); Chloride 109 mmol/L (98-107); Direct Bilirubin 0.5 mg/dl (0.0-0.4); Estimated Creatinine Clearance 17 ml/min; Glucose 94 mg/dl (70-99); Magnesium 2.4 mg/dl (1.6-2.3); Phosphorus 4.1 mg/dl (2.5-4.5); Potassium 3.5 mmol/L (3.5-5.1); Sodium 139 mmol/L (135-145); Total Bilirubin 0.6 mg/dl (0.2-1.3); Total Protein 5.9 g/dl (6.3-8.2); eGFR 21.17
[2023-08-29 06:51] LABS: APTT 93.9 Sec (23.4-35.0)
[2023-08-29 07:14] LABS: TSH Reflex To Free T4 1.05 uIU/ml (0.47-4.68)
--- NOTE | 2023-08-29 07:35 | W.PN.HOSP.TC ---
Addendum entered and electronically signed by Elvis Lawler MD 08/30/23 07:55:
non-mi related troponin elevation
paroxysmal afib/aflutter
Original Note:
Today's Communication/Plan
-
rate control anticoagulation as per cardio
hold lasix
gentle IV hydration
monitor renal function
daily weight I/O
Assessment / Plan
Assessment / Plan
Physical Exam
General: Well Developed, Well Nourished and No Apparent Distress
HEENT: NormoCephalic, Moist mucous membranes and Atraumatic
Respiratory: Clear
Cardiac:Irregularly Irregular
GI: Soft, Non Tender, Non Distended and Normal Bowel Sounds; No Organomegaly
Musculoskeletal: No Clubbing, No Cyanosis and No Edema
Skin: No Rash
Neuro: AOx3
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
last 15 minutes and then subsides.� reports intermittent nausea denies vomiting.� Reported weight loss 20 pounds in the past 6 months with associate appetite loss.�
# New onset atrial fibrillation with RVR
-Cardizem drip converted to metoprolol as per Cardio
-TSH wnl
-Chads Vasc score of 5
-patient recently had echo in May
-Cardiology consult appreciated hep gtt converted to Eliquis
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
-Creatinine of 2.6 from baseline 1.5
-cont IVF
-monitor renal function, consider nephro eval if Cr elevation persists
# Abdominal pain/dysphagia to solids/weight loss suggestive of underlying GI pathology such as ulcer/esophagitis/GI malignancy
#hx of Hiatal hernia/GERD
-Continue omeprazole, famotidine
-GI consult appreciated Abd US appreciated likely fatty liver disease, Upper GI series appreciated presbyesophagus, no further inpatient GI procedures planned
Coronary artery disease status post stents
-hold aspirin since on heparin
Chronic HFpEF
-Hold Lasix
Moderate Mitral Regurgitation�
Mild aortic stenosis
Interstitial lung disease on 2 L at bedtime
History of hemorrhoidal bleeding
Essential hypertension
-Continue metoprolol
Hyperlipidemia
-Continue Zetia
Hypothyroidism
-Continue levothyroxine
Polymyalgia rheumatica
-Continue prednisone
Fibromyalgia
-Continue Percocet
Psoriatic arthritis
Cervical radiculopathy
Spinal stenosis
Anxiety
-Continue venlafaxine
History of shingles
Former smoker
Full code
DVT prophylaxis-heparin drip
GI ppx Protonix
Cardiac diet
I spent a total of 50 minutes with the patient or on the floor. More than 50% of this time involved counseling and coordination of care.
Anticipated Discharge: 24 - 48 hours
Subjective/Interval History
-
Date of Service: August 29, 2023
Reporting return abd symptoms. Afib perstists but rate controlled.
Objective Data
-
Labs:
Laboratory Results
08/29/23
06:02
WBC 7.0
Hgb 11.4 L
Hct 33.9 L
Plt Count 177
APTT 93.9 H
Sodium 139
Potassium 3.5
Chloride 109 H
Carbon Dioxide 23
BUN 48 H
Creatinine 2.2 H
Glucose 94
Calcium 8.3 L
Total Bilirubin 0.6
AST 34
ALT 39 H
Alkaline Phosphatase 66
Vital Signs:
Vital Signs
Temp Pulse Resp BP Pulse Ox
97.8 F 87 22 129/64 97
08/29/23 03:08 08/29/23 03:08 08/29/23 03:08 08/29/23 03:08 08/29/23 03:08
I&O
08/28/23 08/29/23 08/30/23
06:59 06:59 06:59
Intake Total 240 / 240 1949
Balance 240 / 240 1949
[2023-08-29] MEDS: TOPROL XL 50 MG PO (07:50)
[2023-08-29] MEDS: PROTONIX 40 MG PO (07:50)
[2023-08-29] MEDS: EFFEXOR XR 75 MG PO (07:50)
[2023-08-29] MEDS: MIRALAX 17 GRAMS PO (07:50)
--- NOTE | 2023-08-29 09:49 | PN.CDI ---
CDI
- -
CDI:
Physician Documentation Request
Admit Date: 08/27/23 18:59
Dear Doctor Bucky,
Patient presented to ED from cardiology office when she was found to be tachycardic also complaining of fatigue, shortness of breath.
H&P and hospitalist progress notes states 'New onset atrial fibrillation'
Cardiology states 'newly diagnosed atrial flutter'
08/28 signed EKG states 'atrial flutter with 4:1 AV conduction'
In an attempt to clarify potentially conflicting documentation, please clarify the rhythm:
Atrial fibrillation
Atrial flutter
atrial fibrillation and flutter
Other
Use of terms such as suspected, likely, concern for, or probable (associated with a specific diagnosis that is being evaluated, monitored, or treated as if it exists) are acceptable and can be coded in the inpatient setting, when documented at the
time of discharge.
Thank you,
Sierra Griffin RN, BSN
CDI Specialist
tiger text
Please use your independent medical judgment in providing your response.
--- NOTE | 2023-08-29 09:56 | PN.CDI ---
CDI
- -
CDI:
Physician Documentation Request
Admit Date: 08/27/23 18:59
Dear Doctor Bucky,
Patient presented to ED from cardiology office when she was found to be tachycardic also complaining of fatigue, shortness of breath.
Troponin's resulted as follows:
08/27/23 08/27/23 08/28/23
17:05 23:23 08:04
Troponin I 0.152 H* 0.142 H* 0.140 H*
Could you please provide a diagnosis that supports the above abnormalities and additional evaluation/ monitoring:
Non ischemic myocardial injury
Type II OR demand ischemia
Other
Use of terms such as suspected, likely, concern for, or probable (associated with a specific diagnosis that is being evaluated, monitored, or treated as if it exists) are acceptable and can be coded in the inpatient setting, when documented at the
time of discharge.
Thank you,
Sierra Griffin RN, BSN
CDI Specialist
tiger text
Please use your independent medical judgment in providing your response.
--- NOTE | 2023-08-29 10:20 | W.PN.GI.CBS2 ---
Addendum entered and electronically signed by Sharifa Etienne DO 08/29/23 17:39:
Patient seen and examined independently of [employer]. I agree with her note with my additions below
Leigh is an 88-year-old female with CAD status post stents, aortic stenosis, CHF, interstitial lung disease on 2 L nocturnal, CKD 3, chronic steroid use with PMR and multiple other comorbidities. She is followed by Dr. Acevedo as an outpatient for
chronic abdominal pain and chronic dysphagia. Apparently as an outpatient she does not follow recommendations for anticonstipation. She has had a significant workup in the past with Dr. Acevedo including MRI/MRCP, EUS/EGD.
Patient underwent an endoscopy with Dr. Acevedo in January 2023 with no significant pathology in the stomach or small bowel.
Her last colonoscopy in [address] Pearson was normal
Patient had an upper GI series today with noted tertiary contractions consistent with presbyesophagus. There is no intrinsic or extrinsic mass and no mucosal ulceration with no hiatal hernia or reflux. Gastric mucosal folds are normal in
appearance.
Patient is currently on a heparin drip because of A-fib with RVR. Her troponins are elevated but trending down. Her liver enzymes are normalizing.
Overall, no need for any inpatient GI procedures. Would proceed to any and all cardiac management. I will sign off and she can follow up with Dr. Acevedo.
I discussed with her and her daughter.
Please call us back if we can help in any way
Original Note:
Today's Communication / Plan
-
Await UGI
Assessment / Plan
-
88yo female with PMH coronary artery disease status post stents, CHF, aortic stenosis, interstitial lung disease on supplemental oxygen 2 L at bedtime, CKD 3, hypertension, hyperlipidemia, hypothyroidism, PMR on chronic steroids, fibromyalgia on
chronic opioids, psoriatic arthritis, cervical radiculopathy, spinal stenosis, hiatal hernia, anxiety, gastroesophageal reflux disease, history of peptic ulcer disease/DU in 2019 with EGD done in January 2023 showing 2 cm hiatal hernia, fundic gland
polyps, erythema in the stomach with negative biopsies. The patient has a history of cholecystectomy with dilatation of the biliary tract with benign prior workup in 2019 with MRI/MRCP and EUS. She has a history of fatty liver but FCR on FibroScan
in December 2020 with normal LFTs. The patient was at a routine cardiology visit yesterday when she was found to be in A-fib with RVR. She had no prior history of A-fib and she had complained of shortness of breath with minimal exertion over the past
several months as well as fatigue. She also complains of intermittent abdominal pain which she calls 'attacks'. Patient currently on heparin drip, elevated troponin but flat and downward trending 0.140 (0.142, 0.152). Patient did have some solid
breakfast this morning without any complaints. Did have a solid brown bowel movement this morning. Hemoglobin stable and baseline. Patient with CAMRON on CKD. Patient with mildly elevated AST (38)and ALT (52) with normal Alk phos and Bili. LFTs
continue to down trend.
Impression:
Aflutter with RVR on Heparin gtt. Cardiology gave clearance if GI procedures needed.
Intermittent Abdominal pain
Intermittent solid food dysphagia
Mild elevation AST/ALT
CAMRON on CKD
Self reported weight loss-> documented weights do not support this.
Other chronic conditions: CHF, interstitial lung disease, aortic stenosis, hypertension, hyperlipidemia, hypothyroidism, PMR, spinal stenosis
-Patient on chronic steroids and opiates.
Plan:
-Continue Pantoprazole 40 mg and Famotidine
-Await Upper GI with esophagram
-Trend LFTs likely secondary to fatty liver and congestive hepatopathy, these are trending down.
-Continue Miralax
-Further recommendations to be forthcoming
Subjective
Subjective
Date of Service: August 29, 2023
Patient states 'I have that feeling again' in her abdomen. Patient getting ready to UGI/esophagram. The patient HR is Afib but 82. She is not SOB. She states 'I wonder if it is nerves'. She is NPO for the test.
Objective
Data Reviewed
Laboratory Data:
Laboratory Results
08/29/23 06:02
08/29/23 06:02
Laboratory Results
APTT 93.9 Sec (23.4-35.0) H 08/29/23 06:02
Phosphorus 4.1 mg/dl (2.5-4.5) 08/29/23 06:02
Magnesium 2.4 mg/dl (1.6-2.3) H 08/29/23 06:02
Total Bilirubin 0.6 mg/dl (0.2-1.3) 08/29/23 06:02
AST 34 U/L (14-36) 08/29/23 06:02
ALT 39 U/L (0-35) H 08/29/23 06:02
Alkaline Phosphatase 66 U/L (38-126) 08/29/23 06:02
Lipase 116 U/L (23-300) 08/27/23 14:51
Vital Signs and I&O:
Vital Signs
Temp Pulse Resp BP Pulse Ox
97.6 F 89 18 121/53 94
08/29/23 07:00 08/29/23 07:50 08/29/23 07:00 08/29/23 07:50 08/29/23 07:00
I&O
08/28/23 08/29/23 08/30/23
06:59 06:59 06:59
Intake Total 240 / 240 1949
Balance 240 / 240 1949
Physical Exam
Physical Exam
HEENT: Anicteric
Cardiology: Irregular Rate/Rhythm (HR 82)
Pulmonary: Clear (anterior)
GI: Soft, Non Distended, Non Tender and Normal Bowel Sounds
Extremities: No Edema
Neuro: Non Focal
--- NOTE | 2023-08-29 12:30 | W.PN.CARDCBS ---
Addendum entered and electronically signed by Pavel Russell MD 08/29/23 19:32:
Patient feels somewhat better, but still with dyspnea, and palpitations
GI has evaluated, no intervention required from their standpoint
allergies: Hydroxychloroquine, penicillin outpatient meds: Aspirin 81 mg a day, ezetimibe 10 mg a day, Pepcid, furosemide 40 mg daily, levothyroxine, metoprolol ER 50 twice daily, prednisone 5 mg daily, venlafaxine
Current meds: IV heparin, metoprolol ER 50 mg daily, ezetimibe 10 mg a day, prednisone 5 mg a day, DOAC
PMH/PSH/SH/FH: Reviewed
Review of systems: negative except as above
114/71, pulse 50s-90s, respiratory 18-weight is 77.4 kg
She has rales, neck veins may be somewhat elevated, irregular rate and rhythm, soft systolic murmur base to apex, still with edema, abdomen benign, neuro nonfocal, pleasant, tangential
Hemoglobin is 11.4, platelets are 177, BUN and creatinine are 42.2, creatinine was 2.5 and 2.6 on admission, was 1.5 in June
Echo: EF 40-45%, mild LVH, global hypokinesis, normal RV,, MAC
Impression:
Weight loss and dysphagia on admission 08/27/23
Newly diagnosed atrial flutter with RVR 08/27/23
Dyspnea on exertion
CAMRON
Elevated Troponin
CAD
s/p OM stent 10/08/17 with residual 40% stenosis of mid LAD and 50-60% stenosis of prox PDA
PCI RCA 07/2010 ([facility])
PCI LAD 2004 ([facility])Chronic HFpEF
HTN
Hypertension
Mild peak/mean 22/13 mmHg and TAM 1.4 cm sq
HTN
Psoriatic arthritis
Polymyalgia rheumatica
Hyperlipidemia
Hx interstitial lung disease on chronic oxygen at night
Hypothyroidism
Anxiety
Fibromyalgia
Chronic dyspnea
Hx cervical radiculopathy
Statin intolerance
Hx left rotator cuff tear
Urethral stone w/ hydronephrosis 01/2018
Shingles 09/2022
Syncope 09/2022 in setting of GI illness/dehydration
Chronic pain syndrome on oxycodone daily
Echo 01/06/18:�Mild LVH, EF 50-55% possible lateral hypokinesis, normal RV, severely dilated LA, Mild to moderate MR, Mild aortic stenosis, peak/mean gradient 29/16, aortic valve area 1.6 cm�, Mild TR, pulmonary pressure 51-56 mmHg
Echo October 2018: Ejection fraction 60-65 percent, mild MR, mild , mild-moderate AI�������
Echo 07/2020: EF 60-65%, mild with MPG 14 mm Hg, TAM 1.7 cm2.
Echo 03/04/23:�EF 55-60% with mild MR, mild , aortic root 4 cm, trace pericardial effusion
Echo 06/04/23: EF 55 to 60%, mild concentric LVH, mild mitral stenosis with mean transmitral gradient 6 mmHg, moderate MR, mild peak/mean gradient 22/13 mmHg and TAM 1.4 cm sq, trace TR with pulmonary artery systolic pressure 26 mmHg mildly
dilated aortic root
Plan:
Paroxysmal atrial fibrillation: Probably relatively recent in onset, still symptomatic, rate is adequate at rest but somewhat elevated, will increase metoprolol ER to 75 mg twice daily. Given that GI procedures are not planned, stop heparin and
start Eliquis 2.5 mg twice daily
Dyspnea: Probably multifactorial, in part related to atrial fibrillation but concern regarding HFpEF. She is not currently on diuretic, check proBNP in a.m., suspect she may need daily furosemide.
Echo is overall stable.
CAMRON on CKD: Creatinine has dropped to 2.2 was 2.6 and 1.5 in June. Will continue to follow.
Unclear at this point whether transesophageal echo and cardioversion should be performed while in hospital. Children think she may not do well as an outpatient and I tend to agree. Will reassess over the weekend to see if patient can be discharged
with outpatient follow-up or should potentially undergo transesophageal echo and cardioversion while hospitalized.
Original Note:
Today's Communication / Plan
-
Echo today pending
UGI per GI
Continue Toprol
Will need initiation of anticoagulation once no additional GI procedures planned; for now continue heparin
Continue to hold Lasix
Impression / Plan
-
PCP: Wilbert Figueroa
[employer]: Dr. Santos
Impression:
Weight loss and dysphagia on admission 08/27/23
Newly diagnosed atrial flutter with RVR 08/27/23
Dyspnea on exertion
CAMRON
Elevated Troponin
CAD
s/p OM stent 10/08/17 with residual 40% stenosis of mid LAD and 50-60% stenosis of prox PDA
PCI RCA 07/2010 ([facility])
PCI LAD 2004 ([facility])
Chronic HFpEF
HTN
Hypertension
Mild peak/mean 22/13 mmHg and TAM 1.4 cm sq
HTN
Psoriatic arthritis
Polymyalgia rheumatica
Hyperlipidemia
Hx interstitial lung disease on chronic oxygen at night
Hypothyroidism
Anxiety
Fibromyalgia
Chronic dyspnea
Hx cervical radiculopathy
Statin intolerance
Hx left rotator cuff tear
Urethral stone w/ hydronephrosis 01/2018
Shingles 09/2022
Syncope 09/2022 in setting of GI illness/dehydration
Chronic pain syndrome on oxycodone daily
Echo 01/06/18:�Mild LVH, EF 50-55% possible lateral hypokinesis, normal RV, severely dilated LA, Mild to moderate MR, Mild aortic stenosis, peak/mean gradient 29/16, aortic valve area 1.6 cm�, Mild TR, pulmonary pressure 51-56 mmHg
Echo October 2018: Ejection fraction 60-65 percent, mild MR, mild , mild-moderate AI�������
Echo 07/2020: EF 60-65%, mild with MPG 14 mm Hg, TAM 1.7 cm2.
Echo 03/04/23:�EF 55-60% with mild MR, mild , aortic root 4 cm, trace pericardial effusion
Echo 06/04/23: EF 55 to 60%, mild concentric LVH, mild mitral stenosis with mean transmitral gradient 6 mmHg, moderate MR, mild peak/mean gradient 22/13 mmHg and TAM 1.4 cm sq, trace TR with pulmonary artery systolic pressure 26 mmHg mildly
dilated aortic root
Echo 08/29/2023: pending
Plan:
-Presented 08/27/2023 with weakness, weight loss and dysphagia.
-New onset atrial fibrillation/flutter discovered at outpt cardiology visit 08/27/23
-Remains in atrial fibrillation with controlled ventricular response per review of telemetry. She denies palpitations.
-Continue Toprol-XL 50 mg twice daily.
-Continue with heparin drip but will need eventual transition to OAC in the form of Eliquis once any necessary GI workup completed. This was discussed w/ pt and son.
-GI following; LFT's trending down. They are recommending Upper GI with esophagram.
-Could eventually consider JIAN cardioversion once no further GI procedures are planned.� With good rate control and anticoagulation this could be considered as an outpatient.
-Initial Troponin 0.152 and trending down thereafter. Patient's son is concerned about ischemia and noted that patient has had increasing LOVELACE for weeks to months. Echo 08/29/2023 pending. If LOVELACE persists with presybeterian of sinus rhythm then will
next outpt ischemic eval
-Outpatient dose of Lasix 40 mg PO daily is on hold due to CAMRON, creat slowly trending down 2.6->2.5->2.2. Follow daily weights.
-EF preserved by last echo 06/04/23, repeat pending. Cont Toprol XL as above. Previously was on spironolactone but this was stopped due to CAMRON and hyperkalemia.
HPI:
Patient came to ER from the cardiology office yesterday with new atrial flutter but also complains of weight loss and dysphagia, she is now admitted with plan for GI workup and cardiology has been consulted for ongoing atrial flutter. Patient
was seen by Dr. Santos in the office 08/27/2023 and had complaints including severe weakness and poor p.o. intake. He was found to be in atrial flutter with 2-1 block at rest. She has no history of atrial arrhythmia. She was sent to ER
thinking that she would need workup for her abdominal pain and weight loss. The patient has been seen by gastroenterology and the plan is for an upper GI series in the morning. She also had an abdominal ultrasound performed earlier today. In the
meantime she has remained in atrial flutter and is on a Cardizem drip at 5 mg/hr with HRs in the 80s to 90s and she denies any palpitations. She says she has ongoing dyspnea on exertion. Her troponin was elevated initially at 0.152 and trended
down thereafter. She has a history of CAD with previous LAD PCI in 2004, RCA PCI in 2010 and obtuse marginal stent in 2017. Her last ischemic evaluation was May 2018 that showed a small partially reversible inferolateral defect that was
improved from previous stress test.
Progress Note - [employer]
Subjective
Date of Service: August 29, 2023
Patient seen and examined. Patient resting comfortably in bed. Denies palpitations occasionally feels difficulty getting a good or deep breath. Denies chest pain
Objective
Labs:
08/29/23 06:02
08/29/23 06:02
Labs
Hgb 11.4 g/dL (12.0-16.0) L 08/29/23 06:02
Hct 33.9 % (37.0-47.0) L 08/29/23 06:02
Plt Count 177 10^3/uL (130-400) 08/29/23 06:02
APTT 93.9 Sec (23.4-35.0) H 08/29/23 06:02
Sodium 139 mmol/L (135-145) 08/29/23 06:02
Potassium 3.5 mmol/L (3.5-5.1) 08/29/23 06:02
BUN 48 mg/dl (7-17) H 08/29/23 06:02
Creatinine 2.2 mg/dL (0.6-1.0) H 08/29/23 06:02
Glucose 94 mg/dl (70-99) 08/29/23 06:02
Troponins
08/27/23 08/27/23 08/28/23
17:05 23:23 08:04
Troponin I 0.152 H* 0.142 H* 0.140 H*
08/28/23
15:00
Troponin I Cancelled
Vital Signs and I&O:
Vital Signs
Temp Pulse Resp BP Pulse Ox
98.0 F 71 18 120/69 98
08/29/23 11:00 08/29/23 11:00 08/29/23 11:00 08/29/23 11:00 08/29/23 11:00
Vital Signs
Temp Pulse Resp BP Pulse Ox
98.0 F 71 18 120/69 98
08/29/23 11:00 08/29/23 11:00 08/29/23 11:00 08/29/23 11:00 08/29/23 11:00
Intake & Output
08/27/23 08/28/23 08/29/23 08/30/23
06:59 06:59 06:59 06:59
Intake Total 240 / 240 1949
Balance 240 / 240 1949
Physical Exam
Physical Exam
GEN: No distress, awake, Ox3; lying comfortably in bed
HEENT: supple, anicteric, mmm
LUNGS: CTA, no wheezes/rales
CV: irregularly irregular, no murmur
ABD: soft, BS+, NT/ND
EXT: No edema, clubbing or cyanosis bilaterally
NEURO: Gross non-focal
SKIN: No rash warm, dry, pink
--- NOTE | 2023-08-29 14:45 | CM ---
Received consult for patient to determine costs between Eliquis and Xarelto.
Priced each: Eliquis 2.5 [phone]
Xareltom 20mg 530.49
Placed a call to [facility] to double check prices. Spoke with Radha who confirmed that they are correct. She stated that patient would have to check with her insurance to determine if cost will lower (if she has a deductible that has not yet been
met or if in the coverage gap).
Updated PA.
Plan: Case management will continue to follow and assist with discharge planning. Home when stable.
[2023-08-29] MEDS: DELTASONE 5 MG PO (17:18)
[2023-08-29] MEDS: THERAGRAN 1 TABLET PO (17:18)
[2023-08-29] MEDS: ZETIA 10 MG PO (17:18)
[2023-08-29] MEDS: VITAMIN D3 (cholecalciferol) 25 MCG PO (17:18)
[2023-08-29] MEDS: TOPROL XL 75 MG PO (20:42)
[2023-08-29] MEDS: ELIQUIS 2.5 MG PO (20:43)
[2023-08-29] MEDS: PEPCID 20 MG PO (20:59)
[2023-08-30] VITALS (11 sets, daily range): BP systolic 114–153; BP diastolic 53–109; BMI 30.9
[2023-08-30] MEDS: XOPENEX 0.63 MG INHALANT SOLUTION 0.630000000000000004 MG INH ×3 (00:14→18:04)
[2023-08-30] MEDS: NSS 1000 IV (05:43)
[2023-08-30] MEDS: SYNTHROID 75 MCG PO (06:17)
[2023-08-30 07:12] LABS: Hematocrit 35.8 % (37.0-47.0); Hemoglobin 12.1 g/dL (12.0-16.0); Mean Corp Hgb Conc. 33.8 g/dL (33.0-37.0); Mean Corpuscular Hgb 32.4 pg (27.0-31.0); Mean Platelet Volume 10.5 fL (7.4-10.4); Platelet Count 185 10^3/uL (130-400); Red Blood Cell Count 3.73 10^6/uL (4.20-5.40); Red Cell Dist. Width 14.1 % (11.5-14.5); White Blood Cell Count 7.7 10^3/uL (4.8-10.8)
[2023-08-30 07:23] LABS: APTT 34.5 Sec (23.4-35.0)
[2023-08-30 07:28] LABS: NT-proBNP 7570 pg/ml
--- NOTE | 2023-08-30 07:36 | W.PN.HOSP.TC ---
Today's Communication/Plan
-
stop IVF, start IV lasix
daily weights I/O
bladder scan for possible retention
check CXR and abg
Assessment / Plan
Assessment / Plan
Physical Exam
General: Mild moderate distress discomfort.
HEENT: NormoCephalic, Moist mucous membranes and Atraumatic
Respiratory: Clear
Cardiac:Irregularly Irregular
GI: Soft, Non Tender, Non Distended and Normal Bowel Sounds; No Organomegaly
Musculoskeletal: No Clubbing, No Cyanosis and No Edema
Skin: No Rash
Neuro: appears confused but conversant appropriate verbal responses
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 Santos for new onset A-fib following routine visit.� No prior history of A-fib.� Endorsed exertional dyspnea several months and fatigue.� She also reported abd pain attacks that occur whenever she drinks liquids.� Pain
last 15 minutes and then subsides.� reports intermittent nausea denies vomiting.� Reported weight loss 20 pounds in the past 6 months with associate appetite loss.�
# New onset atrial fibrillation with RVR
#aflutter
-Cardizem drip converted to metoprolol as per Cardio
-TSH wnl
-Chads Vasc score of 5
-patient recently had echo in May
-Cardiology consult appreciated hep gtt converted to Eliquis, stress test planned for Friday
Non-OR troponin elevation
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
-Creatinine of 2.6 improved to 1.8 on IVF since completed
-monitor renal function, consider nephro eval if Cr elevation persists
-Bladder scan protocol
# Abdominal pain/dysphagia to solids/weight loss suggestive of underlying GI pathology such as ulcer/esophagitis/GI malignancy
#hx of Hiatal hernia/GERD
-Continue omeprazole, famotidine
-GI consult appreciated Abd US appreciated likely fatty liver disease, Upper GI series appreciated presbyesophagus, no further inpatient GI procedures planned
Coronary artery disease status post stents
-hold aspirin since on heparin
Possible acute on Chronic HFpEF
New onset dyspnea overnight 08/29-08/30 with associate confusion possible Hospital associated delirium
-lasix restarted IV 40 mg Daily with resolving CAMRON and new subjective shortness of breath, elevated BNP
-check Chest XR
-daily weights I/O
Moderate Mitral Regurgitation�
Mild aortic stenosis
Interstitial lung disease on 2 L at bedtime
History of hemorrhoidal bleeding
Essential hypertension
-Continue metoprolol
Hyperlipidemia
-Continue Zetia
Hypothyroidism
-Continue levothyroxine
Polymyalgia rheumatica
-Continue prednisone
Fibromyalgia
-Continue Percocet
Psoriatic arthritis
Cervical radiculopathy
Spinal stenosis
Anxiety
-Continue venlafaxine
History of shingles
Former smoker
Full code
DVT prophylaxis-heparin drip
GI ppx Protonix
Cardiac diet
Discussed with patient 's son Clifford
I spent a total of 59 minutes with the patient or on the floor. More than 50% of this time involved counseling and coordination of care.
Anticipated Discharge: > 48 hours
Subjective/Interval History
-
Date of Service: August 30, 2023
Reported confusion overnight shortness of breath on 2L saturation 90s. No weight gain noted but BNP elevated. Patient reports wanting to but denies plans/thoughts to harm herself or others.
Objective Data
-
Labs:
Laboratory Results
08/30/23
06:19
WBC 7.7
Hgb 12.1
Hct 35.8 L
Plt Count 185
APTT 34.5
Sodium Pending
Potassium Pending
Chloride Pending
Carbon Dioxide Pending
BUN Pending
Creatinine Pending
Glucose Pending
Calcium Pending
Vital Signs:
Vital Signs
Temp Pulse Resp BP Pulse Ox
98.1 F 105 20 144/78 92
08/30/23 03:35 08/30/23 03:35 08/30/23 03:35 08/30/23 03:35 08/30/23 03:35
I&O
08/29/23 08/30/23 08/31/23
06:59 06:59 06:59
Intake Total 1949 340 / 340
Balance 1949 340 / 340
[2023-08-30 07:57] LABS: Blood Urea Nitrogen 42 mg/dl (7-17); Calcium 8.6 mg/dl (8.4-10.2); Carbon Dioxide 20 mmol/L (22-30); Chloride 108 mmol/L (98-107); Estimated Creatinine Clearance 21 ml/min; Glucose 110 mg/dl (70-99); Magnesium 2.3 mg/dl (1.6-2.3); Phosphorus 3.4 mg/dl (2.5-4.5); Potassium 3.7 mmol/L (3.5-5.1); Sodium 141 mmol/L (135-145); eGFR 26.93
--- NOTE | 2023-08-30 08:35 | W.PN.CARDCBS ---
Today's Communication / Plan
-
Continue Toprol 75 mg p.o. twice daily. May need to further titrate
Continue Eliquis
Plan will be for Lexiscan nuclear stress test on September 01 and then possible JIAN cardioversion to be
Hold IV fluids as creatinine is improving down to 1.6
Discussed at length with son.
Impression / Plan
-
PCP: Wilbert Figueroa
Wildlife Protector: Dr. Santos
Impression:
Weight loss and dysphagia on admission 08/27/23
Newly diagnosed atrial flutter with RVR 08/27/23
Dyspnea on exertion
CAMRON
Elevated Troponin
CAD
s/p OM stent 10/08/17 with residual 40% stenosis of mid LAD and 50-60% stenosis of prox PDA
PCI RCA 07/2010 ([facility])
PCI LAD 2004 ([facility])
Chronic HFpEF
HTN
Hypertension
Mild peak/mean 22/13 mmHg and TAM 1.4 cm sq
HTN
Psoriatic arthritis
Polymyalgia rheumatica
Hyperlipidemia
Hx interstitial lung disease on chronic oxygen at night
Hypothyroidism
Anxiety
Fibromyalgia
Chronic dyspnea
Hx cervical radiculopathy
Statin intolerance
Hx left rotator cuff tear
Urethral stone w/ hydronephrosis 01/2018
Shingles 09/2022
Syncope 09/2022 in setting of GI illness/dehydration
Chronic pain syndrome on oxycodone daily
Echo 01/06/18:�Mild LVH, EF 50-55% possible lateral hypokinesis, normal RV, severely dilated LA, Mild to moderate MR, Mild aortic stenosis, peak/mean gradient 29/16, aortic valve area 1.6 cm�, Mild TR, pulmonary pressure 51-56 mmHg
Echo October 2018: Ejection fraction 60-65 percent, mild MR, mild , mild-moderate AI�������
Echo 07/2020: EF 60-65%, mild with MPG 14 mm Hg, TAM 1.7 cm2.
Echo 03/04/23:�EF 55-60% with mild MR, mild , aortic root 4 cm, trace pericardial effusion
Echo 06/04/23: EF 55 to 60%, mild concentric LVH, mild mitral stenosis with mean transmitral gradient 6 mmHg, moderate MR, mild peak/mean gradient 22/13 mmHg and TAM 1.4 cm sq, trace TR with pulmonary artery systolic pressure 26 mmHg mildly
dilated aortic root
Echo 08/29/2023: EF 40-45%, pleural effusion
Plan:
-Presented 08/27/2023 with weakness, weight loss and dysphagia.
-Had some confusion overnight
-New onset atrial fibrillation/flutter discovered at outpt cardiology visit 08/27/23
-Remains in atrial fibrillation with controlled ventricular response per review of telemetry. She denies palpitations.
-Continue Toprol-XL 75 mg twice daily.
-GI evaluation overall unremarkable. Hemoglobin stable on Eliquis 2.5 mg twice daily
-Outpatient dose of Lasix 40 mg PO daily is on hold due to CAMRON. Creatinine down to 1.8
-Would hold IV fluids to avoid further volume overload
-Plan will be for nuclear stress test on Friday and then possible JIAN cardioversion midweek.
HPI:
Patient came to ER from the cardiology office yesterday with new atrial flutter but also complains of weight loss and dysphagia, she is now admitted with plan for GI workup and cardiology has been consulted for ongoing atrial flutter. Patient
was seen by Dr. Santos in the office 08/27/2023 and had complaints including severe weakness and poor p.o. intake. He was found to be in atrial flutter with 2-1 block at rest. She has no history of atrial arrhythmia. She was sent to ER
thinking that she would need workup for her abdominal pain and weight loss. The patient has been seen by gastroenterology and the plan is for an upper GI series in the morning. She also had an abdominal ultrasound performed earlier today. In the
meantime she has remained in atrial flutter and is on a Cardizem drip at 5 mg/hr with HRs in the 80s to 90s and she denies any palpitations. She says she has ongoing dyspnea on exertion. Her troponin was elevated initially at 0.152 and trended
down thereafter. She has a history of CAD with previous LAD PCI in 2004, RCA PCI in 2010 and obtuse marginal stent in 2017. Her last ischemic evaluation was May 2018 that showed a small partially reversible inferolateral defect that was
improved from previous stress test.
Progress Note - Wildlife Protector
Subjective
Date of Service: August 30, 2023
Agitated overnight and did not sleep well. denies chest pains.
Objective
Labs:
08/30/23 06:19
08/30/23 06:19
Labs
Hgb 12.1 g/dL (12.0-16.0) 08/30/23 06:19
Hct 35.8 % (37.0-47.0) L 08/30/23 06:19
Plt Count 185 10^3/uL (130-400) 08/30/23 06:19
APTT 34.5 Sec (23.4-35.0) 08/30/23 06:19
Sodium 141 mmol/L (135-145) 08/30/23 06:19
Potassium 3.7 mmol/L (3.5-5.1) 08/30/23 06:19
BUN 42 mg/dl (7-17) H 08/30/23 06:19
Creatinine 1.8 mg/dL (0.6-1.0) H 08/30/23 06:19
Glucose 110 mg/dl (70-99) H 08/30/23 06:19
Troponins
08/27/23 08/27/23 08/28/23
17:05 23:23 08:04
Troponin I 0.152 H* 0.142 H* 0.140 H*
08/28/23
15:00
Troponin I Cancelled
Vital Signs and I&O:
Vital Signs
Temp Pulse Resp BP Pulse Ox
98.1 F 105 20 144/78 92
08/30/23 03:35 08/30/23 03:35 08/30/23 03:35 08/30/23 03:35 08/30/23 03:35
Vital Signs
Temp Pulse Resp BP Pulse Ox
98.1 F 105 20 144/78 92
08/30/23 03:35 08/30/23 03:35 08/30/23 03:35 08/30/23 03:35 08/30/23 03:35
Intake & Output
08/28/23 08/29/23 08/30/23 08/31/23
06:59 06:59 06:59 06:59
Intake Total 240 / 240 1949 / 1949 340 / 340
Balance 240 / 240 1949 / 1949 340 / 340
Physical Exam
Physical Exam
GEN: No distress, awake, Ox3
HEENT: supple, anicteric, mmm
LUNGS: scatt rhonchi
CV: Irreg, S1/S2, 1/6 syst LSB, no gallop
ABD: soft, BS+, NT/ND
EXT: No edema
NEURO: Gross non-focal
SKIN: No rash
[2023-08-30] MEDS: ELIQUIS 2.5 MG PO ×2 (08:46→20:38)
[2023-08-30] MEDS: TOPROL XL 75 MG PO ×2 (08:46→20:38)
[2023-08-30] MEDS: PROTONIX 40 MG PO (08:46)
[2023-08-30] MEDS: EFFEXOR XR 75 MG PO (08:46)
[2023-08-30] MEDS: MIRALAX 17 GRAMS PO (08:48)
[2023-08-30] MEDS: LASIX 40 MG IV (08:55)
[2023-08-30 09:37] LABS: B.E. -2.6 mmol/L; HCO3 21.7 mmol/L (21-28); O2 Saturation % 95.5 % (94-98); PCO2 35 mmHg (32-35); PO2 73 mmHg (83-108)
--- NOTE | 2023-08-30 10:08 | W.PN.UPDATE ---
Addendum entered and electronically signed by Elvis Lawler MD 08/30/23 10:15:
Requiring 5L saturating high 90s
wheezing, xopenex switched to schedule
Original Note:
Update Note
Progress Note Update
Increasing oxygen requirement to maintain saturation.
Patient remains alert conversive albeit confused
-checking CXR
-ABG
-transfer to IMU for closer monitoring
mariana Horton updated regarding situation and plan to transfer
--- NOTE | 2023-08-30 12:12 | PTCARENOTE ---
This nurse went to see pt at 830 am. She was aao3, confused anxious restless and moaning but saying she had been yelling for help but she had not been yelling at all. her room was a mess with multiple spilt water and soda bottles on floor, SDC
machine on the floor, wires running across her chest into the plug, trash every where, phone off the hook and her call valdes on the floor. I cleaned up her room and straightened everything up and repositioned SCD back to bed and relocated all
lines/plulgs to be safe. SCDs reapplied. PT very SOB at rest dyspneic, labored breathing, RR up to 40 shallow, pt with very decreased BS posteriorly with course crackle sin bases and expiratory wheeze. hypoxia of 90% on room air now requiring 5
liters to maintain 95%. Respiratory called and gave Xopenex as per MD order Her monitor was alarming at 130 ZACHARY. Her Bp 153/80, her color pale alvarado, HR irregular murmur no jvd noted abd large distended +1 pitting BLE edema, IVF infusing as per MD
order. AM creatinine 1.8. I immediately stopped IVF and notified MD of above findings. We obtained an EKG for completeness and is in the medical record. I did let MD know of Card note from day prior that stated, 'JVD systolic murmur' Her weight
today is 168 and yesterday was 170. Last shift RN got IVF reduced from 125 to 70 for complaints of SOB that have not resolved yet. MD franco IVF, IV lasix ordered EKG, stat CXR, ABG, lexiscan in am and ordered bladder scan PT also ordered to transfer
to IMU she will be going for lexiscan with poss JIAN on friday. I gave pt IV lasix pt void three times since but a post void residual not done because she voids without telling anyone. Bed and chair alarm applied becuase she is not ringing for
assistance, ABG completed and PH WNLcompensated. PT received Am BP meds and HR is now AFIB 100-110 and resting on 5 liters. IMU is filled and we are awaiting a bed.
[2023-08-30] MEDS: XOPENEX 0.63 MG INHALANT SOLUTION INH (13:37)
[2023-08-30] MEDS: DELTASONE 5 MG PO (17:23)
[2023-08-30] MEDS: THERAGRAN 1 TABLET PO (17:23)
[2023-08-30] MEDS: VITAMIN D3 (cholecalciferol) 25 MCG PO (17:23)
[2023-08-30] MEDS: LASIX 20 MG IV (17:23)
[2023-08-30] MEDS: FLUSH (NSS) 2 FLUSH IV (17:24)
--- NOTE | 2023-08-30 17:47 | PTCARENOTE ---
Received pt from 3rd floor via stretcher. Pt transferred to bed with a green chain puller. Her heart rate is A-fib 120s with activity and her resp rate was in 30supon arrival to unit. She is conversant and a bit hyperactive and concerned and stated she was
scared and did not understand her 'surgery' today. This RN reassured her that she was transferred to IMu for closer observation. Call to her son fransico to report the room transfer number [id number], messsteffi left for Jaskaran. Pt restless and anxious initially
upon arrival with many questions that were answered and plan of care reviewed that Peewee is for Friday plan. This was written on the [employer] board for pt to reference. Pt calmed and then assited OOB with 1 Assit to recliner and she was able to
doze off to sleep, hear rate in 100-120 range. Resp rate in mid 20s with 5 liters of NC
[2023-08-30] MEDS: ZETIA 10 MG PO (18:41)
--- NOTE | 2023-08-30 19:00 | PTCARENOTE ---
Family at bedside and updated regarding plan of care
--- NOTE | 2023-08-30 20:00 | PTCARENOTE ---
Pt received on 5L o2. AAOx3 forgetful - anxious at times. Afib on the monitor in the low 100s. Lungs w/ fine crackles at the bases on 5L o2. LOVELACE. Pt up to BSC to urinate. + BS. Trace b/l LE edema. + pulses. Family at bedside.
[2023-08-30] MEDS: PEPCID 20 MG PO (20:38)
--- NOTE | 2023-08-30 22:52 | PTCARENOTE ---
Pt now on 3L o2 pox 96%
[2023-08-31] VITALS (16 sets, daily range): BP systolic 94–136; BP diastolic 43–124; BMI 31.8
[2023-08-31] MEDS: SYNTHROID 75 MCG PO (04:18)
[2023-08-31 04:41] LABS: Hematocrit 34.1 % (37.0-47.0); Hemoglobin 11.4 g/dL (12.0-16.0); Mean Corp Hgb Conc. 33.4 g/dL (33.0-37.0); Mean Corpuscular Hgb 32.2 pg (27.0-31.0); Mean Corpuscular Volume 96.3 fL (81.0-99.0); Mean Platelet Volume 10.5 fL (7.4-10.4); Platelet Count 172 10^3/uL (130-400); Red Blood Cell Count 3.54 10^6/uL (4.20-5.40); Red Cell Dist. Width 13.9 % (11.5-14.5); White Blood Cell Count 7.1 10^3/uL (4.8-10.8)
[2023-08-31 06:42] LABS: Blood Urea Nitrogen 37 mg/dl (7-17); Calcium 8.4 mg/dl (8.4-10.2); Carbon Dioxide 19 mmol/L (22-30); Chloride 111 mmol/L (98-107); Estimated Creatinine Clearance 24 ml/min; Glucose 88 mg/dl (70-99); Magnesium 2.1 mg/dl (1.6-2.3); Phosphorus 3.8 mg/dl (2.5-4.5); Potassium 4.4 mmol/L (3.5-5.1); Sodium 137 mmol/L (135-145); eGFR 31.02
--- NOTE | 2023-08-31 07:21 | W.PN.HOSP.TC ---
Today's Communication/Plan
-
Cont IV lasix, will convert to PO to start tomorrow, hold if not eating/npo or SBP<100 or Cr>1.8
daily weight I/O
monitor renal Function
ST/PT/OT eval
cont anticoagulation
NPO after midnight for stress test
Assessment / Plan
Assessment / Plan
Physical Exam
General: Mild moderate distress discomfort.
HEENT: NormoCephalic, Moist mucous membranes and Atraumatic
Respiratory: Clear
Cardiac:Irregularly Irregular
GI: Soft, Non Tender, Non Distended and Normal Bowel Sounds; No Organomegaly
Musculoskeletal: No Clubbing, No Cyanosis and No Edema
Skin: No Rash
Neuro: appears confused but conversant appropriate verbal responses, Mental status improving
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
last 15 minutes and then subsides.� reports intermittent nausea denies vomiting.� Reported weight loss 20 pounds in the past 6 months with associate appetite loss.�
# New onset atrial fibrillation with RVR
#aflutter
-Cardizem drip converted to metoprolol as per Cardio
-TSH wnl
-Chads Vasc score of 5
-patient recently had echo in May
-Cardiology consult appreciated hep gtt converted to Eliquis renally dosed d/t age and Cr, stress test planned for Friday, NPO after midnight
Non-OH troponin elevation
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
-Lasix briefly held
-Creatinine of 2.6 improved to 1.8 on IVF since completed
-Lasix resumed with fluid overload as noted below, Cr remains stable/improved
-Monitor Renal Function
# Abdominal pain/dysphagia to solids/weight loss suggestive of underlying GI pathology such as ulcer/esophagitis/GI malignancy
#hx of Hiatal hernia/GERD
-Continue omeprazole, famotidine
-GI consult appreciated Abd US appreciated likely fatty liver disease, Upper GI series appreciated presbyesophagus, no further inpatient GI procedures planned
-Speech therapy eval requested
Coronary artery disease status post stents
-hold aspirin since on heparin
Acute on Chronic HFpEF
Acute Hypoxic Respiratory Failure requiring 5L
New onset dyspnea overnight 08/29-08/30 with associate confusion possible Hospital associated delirium
-08/30 Lasix restarted IV 40 mg Daily with resolving CAMRON and new subjective shortness of breath, elevated BNP
-08/30 CXR appreciated acute alveolar cardiogenic pulm edema vs severe b/l lower lobe pna (more likely edema given dramatic improvement with Lasix diuresis)
-daily weights I/O
-transferred to IMU for closer monitoring since improved.
-Oxygen requirement weaned to 2L
-IV lasix converted back to home PO lasix 40 mg daily with holding parameters (hold if NPO/not eating, Cr>1.8, or SBP<100)
Moderate Mitral Regurgitation�
Mild aortic stenosis
Interstitial lung disease on 2 L at bedtime
History of hemorrhoidal bleeding
Essential hypertension
-Continue metoprolol
Hyperlipidemia
-Continue Zetia
Hypothyroidism
-Continue levothyroxine
Polymyalgia rheumatica
-Continue prednisone
Fibromyalgia
-Continue Percocet
Psoriatic arthritis
Cervical radiculopathy
Spinal stenosis
Anxiety
-Continue venlafaxine
History of shingles
Former smoker
PT/OT
Full code
DVT prophylaxis Eliquis
GI ppx Protonix
Cardiac diet
I spent a total of 55 minutes with the patient or on the floor. More than 50% of this time involved counseling and coordination of care.
Anticipated Discharge: 24 - 48 hours
Subjective/Interval History
-
Date of Service: August 31, 2023
Seen and examined at bedside in no acute distress resting comfortably in reclined chair. Significantly improved from yesterday. Oxygen requirement trending down. No longer reporting that she 'want[s] to .'
Objective Data
-
Labs:
Laboratory Results
08/31/23 08/31/23
04:22 06:22
WBC 7.1
Hgb 11.4 L
Hct 34.1 L
Plt Count 172
Sodium Cancelled 137
Potassium Cancelled 4.4
Chloride Cancelled 111 H
Carbon Dioxide Cancelled 19 L
BUN Cancelled 37 H
Creatinine Cancelled 1.6 H
Glucose Cancelled 88
Calcium Cancelled 8.4
Vital Signs:
Vital Signs
Temp Pulse Resp BP Pulse Ox
98.1 F 114 27 109/43 99
08/31/23 03:15 08/31/23 04:30 08/31/23 04:30 08/31/23 04:00 08/31/23 07:09
I&O
08/30/23 08/31/23 09/01/23
06:59 06:59 06:59
Intake Total 340 / 340 440 / 440
Output Total 700 / 700
Balance 340 / 340 -260 / -260
[2023-08-31] MEDS: XOPENEX 0.63 MG INHALANT SOLUTION 0.630000000000000004 MG INH ×3 (07:41→20:42)
[2023-08-31] MEDS: TOPROL XL 75 MG PO ×2 (08:56→19:43)
[2023-08-31] MEDS: LASIX 40 MG IV ×2 (09:00→16:32)
[2023-08-31] MEDS: EFFEXOR XR 75 MG PO (09:00)
[2023-08-31] MEDS: ELIQUIS 2.5 MG PO ×2 (09:00→19:42)
[2023-08-31] MEDS: PROTONIX 40 MG PO (09:00)
--- NOTE | 2023-08-31 09:00 | W.PN.CARDCBS ---
Today's Communication / Plan
-
Transferred to IMU August 30, 2023.
Mental status appears improved.
Remains in atrial fibs/flutter with improved ventricular rate. Continue Toprol XL 75 mg twice daily
Her GI workup was unremarkable. Hemoglobin stable on Eliquis 2.5 mg twice daily.
N.p.o. after midnight for possible Lexiscan sestamibi nuclear stress test September 01, 2023 to evaluate for ischemia.
Patient with and be considered for JIAN/cardioversion later this week pending results of stress test.
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 This is also in accordance with her son Clifford's wishes who is a physician.
Lasix currently held due to acute renal insufficiency.
Creatinine continues to improve. Creatinine 1.6 on 08/31/2023 from 2.6 on 08/27/2023.
Chest x-ray 08/30/2023 showed large amount bilateral lower lobe airspace opacity increased from 08/27 2023 with diagnostic possibilities of severe bilateral lower lobe pneumonia versus cardiogenic pulmonary edema, small bilateral pleural effusions,
enlarged cardiac silhouette.
Repeat chest x-ray next 24 hours.
Impression / Plan
-
.
PCP: Wilbert Figueroa
Helpdesk Specialist: Dr. Santos
Impression:
Weight loss and dysphagia on admission 08/27/23
Newly diagnosed atrial flutter with RVR 08/27/23
Dyspnea on exertion
CAMRON
Elevated Troponin
CAD
s/p OM stent 10/08/17 with residual 40% stenosis of mid LAD and 50-60% stenosis of prox PDA
PCI RCA 07/2010 ([facility])
PCI LAD 2004 ([facility])
Chronic HFpEF
HTN
Hypertension
Mild peak/mean 22/13 mmHg and TAM 1.4 cm sq
HTN
Psoriatic arthritis
Polymyalgia rheumatica
Hyperlipidemia
Hx interstitial lung disease on chronic oxygen at night
Hypothyroidism
Anxiety
Fibromyalgia
Chronic dyspnea
Hx cervical radiculopathy
Statin intolerance
Hx left rotator cuff tear
Urethral stone w/ hydronephrosis 01/2018
Shingles 09/2022
Syncope 09/2022 in setting of GI illness/dehydration
Chronic pain syndrome on oxycodone daily
Echo 01/06/18:�Mild LVH, EF 50-55% possible lateral hypokinesis, normal RV, severely dilated LA, Mild to moderate MR, Mild aortic stenosis, peak/mean gradient 29/16, aortic valve area 1.6 cm�, Mild TR, pulmonary pressure 51-56 mmHg
Echo October 2018: Ejection fraction 60-65 percent, mild MR, mild , mild-moderate AI�������
Echo 07/2020: EF 60-65%, mild with MPG 14 mm Hg, TAM 1.7 cm2.
Echo 03/04/23:�EF 55-60% with mild MR, mild , aortic root 4 cm, trace pericardial effusion
Echo 06/04/23: EF 55 to 60%, mild concentric LVH, mild mitral stenosis with mean transmitral gradient 6 mmHg, moderate MR, mild peak/mean gradient 22/13 mmHg and TAM 1.4 cm sq, trace TR with pulmonary artery systolic pressure 26 mmHg mildly
dilated aortic root
Echo 08/29/2023: EF 40-45%, pleural effusion
Plan:
-Presented 08/27/2023 with weakness, weight loss and dysphagia.
Transferred to IMU August 30, 2023.
Mental status appears improved.
Remains in atrial fibs/flutter with improved ventricular rate. Continue Toprol XL 75 mg twice daily
Her GI workup was unremarkable. Hemoglobin stable on Eliquis 2.5 mg twice daily.
N.p.o. after midnight for possible Lexiscan sestamibi nuclear stress test September 01, 2023 to evaluate for ischemia.
Patient with and be considered for JIAN/cardioversion later this week pending results of stress test.
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 This is also in accordance with her son Clifford's wishes who is a physician.
Lasix currently held due to acute renal insufficiency.
Creatinine continues to improve. Creatinine 1.6 on 08/31/2023 from 2.6 on 08/27/2023.
Chest x-ray 08/30/2023 showed large amount bilateral lower lobe airspace opacity increased from 08/27 2023 with diagnostic possibilities of severe bilateral lower lobe pneumonia versus cardiogenic pulmonary edema, small bilateral pleural effusions,
enlarged cardiac silhouette.
Repeat chest x-ray next 24 hours.
Discussed with nursing.
Son has been updated last 24 hours.
HPI:
Patient came to ER from the cardiology office yesterday with new atrial flutter but also complains of weight loss and dysphagia, she is now admitted with plan for GI workup and cardiology has been consulted for ongoing atrial flutter. Patient
was seen by Dr. Santos in the office 08/27/2023 and had complaints including severe weakness and poor p.o. intake. He was found to be in atrial flutter with 2-1 block at rest. She has no history of atrial arrhythmia. She was sent to ER
thinking that she would need workup for her abdominal pain and weight loss. The patient has been seen by gastroenterology and the plan is for an upper GI series in the morning. She also had an abdominal ultrasound performed earlier today. In the
meantime she has remained in atrial flutter and is on a Cardizem drip at 5 mg/hr with HRs in the 80s to 90s and she denies any palpitations. She says she has ongoing dyspnea on exertion. Her troponin was elevated initially at 0.152 and trended
down thereafter. She has a history of CAD with previous LAD PCI in 2005, RCA PCI in 2010 and obtuse marginal stent in 2018. Her last ischemic evaluation was May 2018 that showed a small partially reversible inferolateral defect that was
improved from previous stress test.
Progress Note - Helpdesk Specialist
Subjective
Date of Service: August 31, 2023
Patient seen and examined. Continues with dyspnea on exertion.
Objective
Labs:
08/31/23 04:22
08/31/23 06:22
Labs
Hgb 11.4 g/dL (12.0-16.0) L 08/31/23 04:22
Hct 34.1 % (37.0-47.0) L 08/31/23 04:22
Plt Count 172 10^3/uL (130-400) 08/31/23 04:22
APTT 34.5 Sec (23.4-35.0) 08/30/23 06:19
Sodium 137 mmol/L (135-145) 08/31/23 06:22
Potassium 4.4 mmol/L (3.5-5.1) 08/31/23 06:22
BUN 37 mg/dl (7-17) H 08/31/23 06:22
Creatinine 1.6 mg/dL (0.6-1.0) H 08/31/23 06:22
Glucose 88 mg/dl (70-99) 08/31/23 06:22
Troponins
08/28/23 08/28/23
08:04 15:00
Troponin I 0.140 H* Cancelled
Vital Signs and I&O:
Vital Signs
Temp Pulse Resp BP Pulse Ox
98.1 F 90 15 109/43 97
08/31/23 07:47 08/31/23 07:43 08/31/23 07:43 08/31/23 04:00 08/31/23 07:43
Vital Signs
Temp Pulse Resp BP Pulse Ox
98.1 F 90 15 109/43 97
08/31/23 07:47 08/31/23 07:43 08/31/23 07:43 08/31/23 04:00 08/31/23 07:43
Intake & Output
08/29/23 08/30/23 08/31/23 09/01/23
06:59 06:59 06:59 06:59
Intake Total 1950 / 1950 340 / 340 440 / 440
Output Total 700 / 700
Balance 1949 / 1949 340 / 340 -260 / -260
Physical Exam
Physical Exam
General: No acute distress, AAOX3
Neck: Negative JVD
Heart: Irregularly irregular, Negative S3 positive S1/S2, Negative S4, No murmur
Lungs: CTA b/l, negative wheezes/rales/rhonchi
Abd: Positive BS, NT/ND, neg rebound/rigidity/guarding
Ext: Negative cyanosis/clubbing/edema
Neuro: nonfocal
[2023-08-31] MEDS: MIRALAX 17 GRAMS PO (09:01)
--- NOTE | 2023-08-31 16:23 | PTOTSP ---
Please reconsult PT when medically appropriate due to change to higher level of care. Thanks, PT, [id number]
[2023-08-31] MEDS: FLUSH (NSS) 2 FLUSH IV (16:33)
[2023-08-31] MEDS: VITAMIN D3 (cholecalciferol) 25 MCG PO (17:37)
[2023-08-31] MEDS: DELTASONE 5 MG PO (17:37)
[2023-08-31] MEDS: THERAGRAN 1 TABLET PO (17:37)
[2023-08-31] MEDS: ZETIA 10 MG PO (17:37)
--- NOTE | 2023-08-31 18:00 | PTCARENOTE ---
Pt is hyper with rapid conversation and making multiple jokes during conversation. She needs redirection and encouragement to slow down, as she does get herself anxious and her heart rate and resp rate increase. Pt's son Dc reviewed pt's current
med list with this RN and this RN clarified with Dr. Valdes that pt has the increased Metoprolol and Cardizem is not being utilized at this time. Plan is for Nuclear stress test in am. Pt oxugen weaned to 2L nc.
[2023-08-31] MEDS: PEPCID 20 MG PO (19:43)
[2023-09-01] VITALS (10 sets, daily range): BP systolic 98–133; BP diastolic 66–96; BMI 31.4
[2023-09-01] MEDS: SYNTHROID 75 MCG PO (05:01)
[2023-09-01 05:26] LABS: Hematocrit 39.2 % (37.0-47.0); Hemoglobin 12.7 g/dL (12.0-16.0); Mean Corp Hgb Conc. 32.4 g/dL (33.0-37.0); Mean Corpuscular Hgb 31.7 pg (27.0-31.0); Mean Corpuscular Volume 97.8 fL (81.0-99.0); Mean Platelet Volume 10.6 fL (7.4-10.4); Platelet Count 190 10^3/uL (130-400); Red Blood Cell Count 4.01 10^6/uL (4.20-5.40); Red Cell Dist. Width 14.1 % (11.5-14.5); White Blood Cell Count 7.6 10^3/uL (4.8-10.8)
[2023-09-01 06:02] LABS: Blood Urea Nitrogen 40 mg/dl (7-17); Carbon Dioxide 27 mmol/L (22-30); Chloride 103 mmol/L (98-107); Estimated Creatinine Clearance 24 ml/min; Glucose 117 mg/dl (70-99); Magnesium 2.1 mg/dl (1.6-2.3); Phosphorus 4.2 mg/dl (2.5-4.5); Potassium 4.3 mmol/L (3.5-5.1); Sodium 141 mmol/L (135-145); eGFR 31.02
[2023-09-01] MEDS: XOPENEX 0.63 MG INHALANT SOLUTION 0.630000000000000004 MG INH ×3 (07:42→19:49)
[2023-09-01] MEDS: LASIX PO (07:42)
--- NOTE | 2023-09-01 07:49 | W.PN.CARDCBS ---
Addendum entered and electronically signed by Isidro Valdes DO 09/01/23 15:25:
I saw and examined the patient.
The Gypsum Calciner's note was reviewed and I agree with the note.
Comment:
Plan:
Lexiscan MIB with evidence of possible anterior and basilar to mid lateral ischemia with fixed apical defect.
Reviewed options with pt and she was agreeable to cath to eval coronary anatomy
Hold Eliquis in anticipation of cath. Start IV heparin this p.m.
Cath after Eliquis washout.
Following cardiac catheterization and depending on findings, patient could be considered for JIAN/cardioversion for atrial fibrillation in the setting of ischemic versus tachycardia mediated cardiomyopathy
Continue oral Lasix. Patient appears euvolemic.
Her son who is a physician was updated.
Addendum entered and electronically signed by Marylu Mars PA-C 09/01/23 12:54:
PCP: Wilbert Figueroa
Posting Specialist: Dr. Santos
Impression:
Weight loss and dysphagia on admission 08/27/23
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
Newly diagnosed typical atrial flutter with RVR 08/27/23
Dyspnea on exertion
CAMRON
Elevated Troponin
CAD
s/p OM stent 10/08/17 with residual 40% stenosis of mid LAD and 50-60% stenosis of prox PDA
PCI RCA 07/2010 ([facility])
PCI LAD 2004 ([facility])Chronic HFpEF
HTN
Hypertension
Mild peak/mean 22/13 mmHg and TAM 1.4 cm sq
HTN
Psoriatic arthritis
Polymyalgia rheumatica
Hyperlipidemia
Hx interstitial lung disease on chronic oxygen at night
Hypothyroidism
Anxiety
Fibromyalgia
Chronic dyspnea
Hx cervical radiculopathy
Statin intolerance
Hx left rotator cuff tear
Urethral stone w/ hydronephrosis 01/2018
Shingles 09/2022
Syncope 09/2022 in setting of GI illness/dehydration
Chronic pain syndrome on oxycodone daily
Original Note:
Today's Communication / Plan
-
Lexiscan mibi today
Possible JIAN/CV in AM pending mibi results
Impression / Plan
-
PCP: Wilbert Figueroa
Posting Specialist: Dr. Santos
Impression:
Weight loss and dysphagia on admission 08/27/23
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
Newly diagnosed atrial flutter with RVR 08/27/23
Dyspnea on exertion
CAMRON
Elevated Troponin
CAD
s/p OM stent 10/08/17 with residual 40% stenosis of mid LAD and 50-60% stenosis of prox PDA
PCI RCA 07/2010 ([facility])
PCI LAD 2004 ([facility])
Chronic HFpEF
HTN
Hypertension
Mild peak/mean 22/13 mmHg and TAM 1.4 cm sq
HTN
Psoriatic arthritis
Polymyalgia rheumatica
Hyperlipidemia
Hx interstitial lung disease on chronic oxygen at night
Hypothyroidism
Anxiety
Fibromyalgia
Chronic dyspnea
Hx cervical radiculopathy
Statin intolerance
Hx left rotator cuff tear
Urethral stone w/ hydronephrosis 01/2018
Shingles 09/2022
Syncope 09/2022 in setting of GI illness/dehydration
Chronic pain syndrome on oxycodone daily
Echo 01/06/18:�Mild LVH, EF 50-55% possible lateral hypokinesis, normal RV, severely dilated LA, Mild to moderate MR, Mild aortic stenosis, peak/mean gradient 29/16, aortic valve area 1.6 cm�, Mild TR, pulmonary pressure 51-56 mmHg
Echo October 2018: Ejection fraction 60-65 percent, mild MR, mild , mild-moderate AI�������
Echo 07/2020: EF 60-65%, mild with MPG 14 mm Hg, TAM 1.7 cm2.
Echo 03/04/23:�EF 55-60% with mild MR, mild , aortic root 4 cm, trace pericardial effusion
Echo 06/04/23: EF 55 to 60%, mild concentric LVH, mild mitral stenosis with mean transmitral gradient 6 mmHg, moderate MR, mild peak/mean gradient 22/13 mmHg and TAM 1.4 cm sq, trace TR with pulmonary artery systolic pressure 26 mmHg mildly
dilated aortic root
Echo 08/29/2023: EF 40-45%, pleural effusion
Plan:
-Patient transferred to IMU 08/30/23 with increased hypoxia. Oxygenation improved after Lasix 40 mg IV. There was also concern for hospital associated delirium.
-Oxygenation has improved and patient is stable on 2 L NC.
-Patient with new atrial flutter on admission and plan is for an eventual JIAN/CV.
-EF down to 40-45% this admission in the setting of atrial flutter. Will recheck in echo 3 months.
-Outpatient dose of Toprol XL increased to 75 mg BID.
-Patient was started on Cardizem gtt on admission, but HRs were controlled so Cardizem gtt stopped 08/28/23.
-Patient was on Heparin gtt initially with the plan to check mibi and if positive then she could have cath, but patient was started on Eliquis 2.5 mg BID (age 88, wt 77.8 kg and Cre 1.6) 08/29/23. Hgb has been stable. If patient needs a cath then
will have to wait for Eliquis to washout.
-Troponin was 0.152 on admission and trended down thereafter. This is likely a nonischemic myocardial injury Troponin elevation in the setting on rapid atrial flutter, but patient's son reported that patient with LOVELACE prior to admission. Will check a
Lexiscan mibi to look for ischemia.
-Patient was given Lasix 40 mg IV x1 on 08/30/23 AM, then 20 mg IV x1 08/30/23 PM and then Lasix 40 mg IV BID on 08/31/23. Cre was 2.6 on admission and trended down thereafter. Cre is 1.6 and stable on 09/01/23. Outpatient dose of Lasix 40 mg PO daily
resumed 09/01/23
-CXR 09/01/23 with small to moderate pleural effusion
-Patient with abdominal pain and weight loss on admission. UGI series on 08/29/23 was read as presbyesophagus. �There were no intrinsic or extrinsic masses and no mucosal ulceration with no hiatal hernia or reflux.No additional work-up planned by GI.
-Plan for 09/01/23 from a CV standpoint is to proceed with planned Lexiscan mibi and pending results then a JIAN/CV on 09/02/23 or 09/03/23 depending on the schedule.
HPI:
Patient came to ER from the cardiology office yesterday with new atrial flutter but also complains of weight loss and dysphagia, she is now admitted with plan for GI workup and cardiology has been consulted for ongoing atrial flutter. Patient
was seen by Dr. Santos in the office 08/27/2023 and had complaints including severe weakness and poor p.o. intake. He was found to be in atrial flutter with 2-1 block at rest. She has no history of atrial arrhythmia. She was sent to ER
thinking that she would need workup for her abdominal pain and weight loss. The patient has been seen by gastroenterology and the plan is for an upper GI series in the morning. She also had an abdominal ultrasound performed earlier today. In the
meantime she has remained in atrial flutter and is on a Cardizem drip at 5 mg/hr with HRs in the 80s to 90s and she denies any palpitations. She says she has ongoing dyspnea on exertion. Her troponin was elevated initially at 0.152 and trended
down thereafter. She has a history of CAD with previous LAD PCI in 2005, RCA PCI in 2010 and obtuse marginal stent in 2017. Her last ischemic evaluation was May 2018 that showed a small partially reversible inferolateral defect that was
improved from previous stress test.
Progress Note - Posting Specialist
Subjective
Date of Service: September 01, 2023
She says that she is nervous about stress test and wants to get it over with
Objective
Labs:
09/01/23 05:09
09/01/23 05:09
Labs
Hgb 12.7 g/dL (12.0-16.0) 09/01/23 05:09
Hct 39.2 % (37.0-47.0) 09/01/23 05:09
Plt Count 190 10^3/uL (130-400) 09/01/23 05:09
APTT 34.5 Sec (23.4-35.0) 08/30/23 06:19
Sodium 141 mmol/L (135-145) 09/01/23 05:09
Potassium 4.3 mmol/L (3.5-5.1) 09/01/23 05:09
BUN 40 mg/dl (7-17) H 09/01/23 05:09
Creatinine 1.6 mg/dL (0.6-1.0) H 09/01/23 05:09
Glucose 117 mg/dl (70-99) H 09/01/23 05:09
Vital Signs and I&O:
Vital Signs
Temp Pulse Resp BP Pulse Ox
97.8 F 109 18 130/73 98
09/01/23 03:00 09/01/23 06:00 09/01/23 06:00 09/01/23 06:00 09/01/23 06:00
Vital Signs
Temp Pulse Resp BP Pulse Ox
97.8 F 109 18 130/73 98
09/01/23 03:00 09/01/23 06:00 09/01/23 06:00 09/01/23 06:00 09/01/23 06:00
Intake & Output
08/30/23 08/31/23 09/01/23 09/02/23
06:59 06:59 06:59 06:59
Intake Total 340 / 340 440 / 440 750 / 750
Output Total 700 / 700 2075 / 2075
Balance 340 / 340 -260 / -260 -1325 / -1325
Physical Exam
Physical Exam
General: NAD, AAO to person, place and situation. She knows she is supposed to have stress test today
HEENT: EOMI, MMM
Heart: Irreg irreg, no murmur
Lungs: Wearing oxygen at 2 L NC. CTA B/L without wheeze
Abd: +BS, soft
Ext: No B/L LE edema
Neuro: Nonfocal
[2023-09-01] MEDS: ELIQUIS 2.5 MG PO (07:55)
[2023-09-01] MEDS: PROTONIX 40 MG PO (07:55)
[2023-09-01] MEDS: EFFEXOR XR 75 MG PO (07:55)
[2023-09-01] MEDS: TOPROL XL 75 MG PO ×2 (07:55→20:19)
[2023-09-01] MEDS: MIRALAX PO (08:33)
--- NOTE | 2023-09-01 09:45 | W.PN.HOSP.TC ---
Today's Communication/Plan
-
see bold
Assessment / Plan
Assessment / Plan
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 Santos for new onset A-fib following routine visit.� No prior history of A-fib.� Endorsed exertional dyspnea several months and fatigue.� She also reported abd pain attacks that occur whenever she drinks liquids.� Pain
last 15 minutes and then subsides.� reports intermittent nausea denies vomiting.� Reported weight loss 20 pounds in the past 6 months with associate appetite loss.�
# New onset atrial fibrillation with RVR
#aflutter
-Cardizem drip converted to metoprolol as per Cardio
-TSH wnl, Chads Vasc score of 5
-patient recently had echo in May
-Cardiology consult appreciated hep gtt converted to Eliquis renally dosed d/t age and Cr, stress test planned for today
Non-NV troponin elevation
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
-Creatinine of 2.6 improved to 1.6
-Lasix resumed with fluid overload as noted below, Cr remains stable/improved
-Monitor Renal Function
# Abdominal pain/dysphagia to solids/weight loss suggestive of underlying GI pathology such as ulcer/esophagitis/GI malignancy
#hx of Hiatal hernia/GERD
-Continue omeprazole, famotidine
-GI consult appreciated Abd US appreciated likely fatty liver disease, Upper GI series appreciated presbyesophagus, no further inpatient GI procedures planned
-Speech therapy consulted
Coronary artery disease status post stents
-hold aspirin since on eliquis
Acute on Chronic HFpEF
Acute Hypoxic Respiratory Failure requiring 5L
New onset dyspnea overnight 08/29-08/30 with associate confusion possible Hospital associated delirium
-08/30 Lasix restarted IV 40 mg Daily with resolving CAMRON and new subjective shortness of breath, elevated BNP
-08/30 CXR appreciated acute alveolar cardiogenic pulm edema vs severe b/l lower lobe pna (more likely edema given dramatic improvement with Lasix diuresis)
-daily weights I/O
-transferred to IMU for closer monitoring since improved.
-Oxygen requirement weaned to 2L
-IV lasix converted back to home PO lasix 40 mg daily with holding parameters (hold if NPO/not eating, Cr>1.8, or SBP<100)
Moderate Mitral Regurgitation�
Mild aortic stenosis
Interstitial lung disease on 2 L at bedtime
History of hemorrhoidal bleeding
Essential hypertension
-Continue metoprolol
Hyperlipidemia
-Continue Zetia
Hypothyroidism
-Continue levothyroxine
Polymyalgia rheumatica
-Continue prednisone
Fibromyalgia
-Continue Percocet
Psoriatic arthritis
Cervical radiculopathy
Spinal stenosis
Anxiety
-Continue venlafaxine
History of shingles
Former smoker
PT/OT
DVT prophylaxis - Eliquis
Full Code
Physical Exam
General: No acute distress
HEENT: Normocephalic, Atraumatic, EOMI, MMM
Respiratory: Clear to Auscultation bilaterally
Cardiac: Normal S1/S2, tachycardic rate, irregularly irregular rhythm
GI: Soft, Nontender, Nondistended, Normal Bowel Sounds
Extremities: No Clubbing, Cyanosis, or Edema
Neuro: Nonfocal/Grossly Intact
Psych: Calm, Cooperative
Derm: No Visible lesions
Anticipated Discharge: > 48 hours
Subjective/Interval History
-
Date of Service: September 01, 2023
Patient denies chest pain, denies shortness of breath.
Objective Data
-
Labs:
Laboratory Results
09/01/23
05:09
WBC 7.6
Hgb 12.7
Hct 39.2
Plt Count 190
Sodium 141
Potassium 4.3
Chloride 103
Carbon Dioxide 27
BUN 40 H
Creatinine 1.6 H
Glucose 117 H
Calcium 9.0
Vital Signs:
Vital Signs
Temp Pulse Resp BP Pulse Ox
97.4 F 106 16 130/73 98
09/01/23 07:39 09/01/23 07:40 09/01/23 07:40 09/01/23 06:00 09/01/23 07:40
I&O
08/31/23 09/01/23 09/02/23
06:59 06:59 06:59
Intake Total 440 / 440 750 / 750
Output Total 700 / 700 2074 / 2074
Balance -260 / -260 -1325 / -1325
[2023-09-01] MEDS: LEXISCAN 0.400000000000000022 MG IV (10:04)
[2023-09-01] MEDS: FLUSH (NSS) 1 FLUSH IV (10:04)
--- NOTE | 2023-09-01 10:25 | PN.CDI ---
CDI
- -
CDI:
Physician Documentation Request
Admit Date: 08/27/23 18:59
Dear Marylu Mars,
Patient came to ER from the cardiology office yesterday with new atrial flutter
If possible, please provide further specificity regarding atrial flutter:
Typical Atrial Flutter - Type I: Classic or common atrial flutter, Rate is 240-340 beats/min. Usually responds to atrial pacing.
Atypical Atrial Flutter - Type II: Less common and more unstable. Rate is 340-440 beats/min. Less responsive to atrial pacing.
Other - please specify
Use of terms such as suspected, likely, concern for, or probable (associated with a specific diagnosis that is being evaluated, monitored, or treated as if it exists) are acceptable and can be coded in the inpatient setting, when documented at the
time of discharge.
Thank you,
Sierra Griffin RN, BSN
CDI Specialist
tiger text
Please use your independent medical judgment in providing your response.
--- NOTE | 2023-09-01 13:20 | PTOTSP ---
Speech Language Pathology
Pt seen for clinical bedside swallow evaluation. Previous VSE completed as an outpatient in October 2010. Recommendations for regular solids/thin liquids. No penetration/aspiration with mild pharyngeal retention. Pt reported that she only
occasional notes globus sensation at level of sternal notch with dry meats and breads, but she states this problem is manageable. Given UGI findings, suspect esophageal etiology of globus sensation. Discussed weight loss, and pt stated this is
secondary to no appetite, not dysphagia. Offered RD, but pt declined.
P.O. trials of puree, regular solids, and thin liquids provided. Adequate mastication, bolus formation, and A-P transit noted with no oral residue. No overt signs of aspiration.
Recommend:
(1) Continue regular solids/thin liquids
(2) Esophageal precautions
(3) Meds as tolerated
(4) APPLIANCE COUNSELOR to sign off. Please reconsult as indicated.
--- NOTE | 2023-09-01 15:33 | CM ---
Patient with Dx New onset atrial fibrillation with RVR, AKIAbdominal pain/dysphagia to solids/weight loss, HF. O2 2L. Lexiscan stress test today. PT & OT recommend HH.
Met with patient and reviewed with her the cost of meds from the miles check on 08/29: Eliquis 2.5 BID-$536.41, Xarelto 20mg $530.49. Patient made aware she would be eligible for a Free Month card as she is on Medicare. Patient affronted with the
high cost of the med and says she will not agree to pay that cost. CM relayed to patient that she would let MD know----> message forwarded to Tejinder Acevedo & Marylu BLOCK.
Offered VN and patient agrees to [facility].
Referral to DAVIS Mars.
Plan home with [facility].
--- NOTE | 2023-09-01 16:04 | W.PN.UPDATE ---
Update Note
Progress Note Update
Stress test with concerns for anterior ischemia. Talked with patient's son about stress test results and he is in agreement with cath given LOVELACE prior to admission, elevated Troponin and stress test results. Patient was initially on Heparin gtt and
then transitioned to Eliquis 2.5 mg BID on 08/29/23. Will stop Eliquis and start Heparin gtt tonight. Likely cath Friday given CKD and last dose of Eliquis this morning. Appreciate help of IVU case management in determining the cost of Eliquis.
Once patient meets her deductible of $545 her monthly cost will be $141, but she can ask for a Tier reduction from [employer]. Will convey this to her son when I talk to him again tomorrow, hopefully they can afford $140/month and avoid
warfarin.
--- NOTE | 2023-09-01 16:07 | CM ---
called by Christina Mars to check medication copay. was given a cost of $536/month. i called her pharmacy/ [facility] and got pts perscriptiopn plan - [email or web address] ID# [id number]/ phone [phone]. her first month is $536.41 of this $545 is her
deductible, after that her copays will be $141.83/month. this is a tier 3 medication. i was told that once the patient pays her $545 deductible she can call [email or web address] and ask for a teir reduction which will further bring down her copays.
christina mars aware and will call son with this information.
[2023-09-01] MEDS: ZETIA 10 MG PO (17:57)
[2023-09-01] MEDS: THERAGRAN 1 TABLET PO (17:57)
[2023-09-01] MEDS: VITAMIN D3 (cholecalciferol) 25 MCG PO (17:57)
[2023-09-01] MEDS: DELTASONE 5 MG PO (17:57)
[2023-09-01] MEDS: PEPCID 20 MG PO (20:18)
[2023-09-01] MEDS: HEPARIN 25000 UNITS/250 ML IV (20:38)
[2023-09-02] VITALS (12 sets, daily range): BP systolic 104–154; BP diastolic 50–127; BMI 31.5
[2023-09-02 04:06] LABS: Hematocrit 37.1 % (37.0-47.0); Hemoglobin 12.6 g/dL (12.0-16.0); Mean Corpuscular Hgb 32.6 pg (27.0-31.0); Mean Corpuscular Volume 96.1 fL (81.0-99.0); Mean Platelet Volume 10.8 fL (7.4-10.4); Platelet Count 184 10^3/uL (130-400); Red Blood Cell Count 3.86 10^6/uL (4.20-5.40); Red Cell Dist. Width 14.1 % (11.5-14.5)
[2023-09-02 04:20] LABS: APTT 110.9 Sec (23.4-35.0)
[2023-09-02 04:31] LABS: Blood Urea Nitrogen 37 mg/dl (7-17); Carbon Dioxide 23 mmol/L (22-30); Chloride 108 mmol/L (98-107); Estimated Creatinine Clearance 24 ml/min; Glucose 119 mg/dl (70-99); Magnesium 2.2 mg/dl (1.6-2.3); Phosphorus 4.1 mg/dl (2.5-4.5); Potassium 3.8 mmol/L (3.5-5.1); Sodium 139 mmol/L (135-145); eGFR 31.02
[2023-09-02] MEDS: SYNTHROID 75 MCG PO (05:48)
--- NOTE | 2023-09-02 06:05 | PTCARENOTE ---
Initiated IV heparin infusion at beginning of shift. Left forearm site intact, no infiltration or swelling, flushes well. Pt exhibited no acute changes over night. Maintaining SATS at 95% on 2L NC O2. Pt does complain of SOB on exertion, SOB and
tachypnea assessed when ambulating Pt to [facility]. Pt agreeable to care. Pt displayed slight overall anxiety r/t hospital stay and change in overall health, emotional support provided to Pt at bedside. Pt had difficulty sleeping overnight 09/01. V/S
stable. Continuing with care. See nursing shift assessment for head to toe.
[2023-09-02] MEDS: XOPENEX 0.63 MG INHALANT SOLUTION 0.630000000000000004 MG INH ×3 (08:09→19:27)
--- NOTE | 2023-09-02 08:17 | W.PN.HOSP.TC ---
Today's Communication/Plan
-
For cardiac catheterization tomorrow
Assessment / Plan
Assessment / Plan
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 Santos for new onset A-fib following routine visit.� No prior history of A-fib.� Endorsed exertional dyspnea several months and fatigue.� She also reported abd pain attacks that occur whenever she drinks liquids.� Pain
last 15 minutes and then subsides.� reports intermittent nausea denies vomiting.� Reported weight loss 20 pounds in the past 6 months with associate appetite loss.�
# New onset atrial fibrillation with RVR
#aflutter
-Cardizem drip converted to metoprolol as per Cardio
-TSH wnl, Chads Vasc score of 5, on heparin ggt
-patient recently had echo in May
-S/p stress test 09/01 concerning for ischemia
-Back on heparin drip, plan for cardiac catheterization on 09/03 after Eliquis washout
Non-CT troponin elevation
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
-Creatinine of 2.6 improved to 1.6
-Lasix resumed with fluid overload as noted below, Cr remains stable/improved
-Monitor Renal Function
# Abdominal pain/dysphagia to solids/weight loss suggestive of underlying GI pathology such as ulcer/esophagitis/GI malignancy
#hx of Hiatal hernia/GERD
-Continue omeprazole, famotidine
-GI consult appreciated
-Abd US appreciated likely fatty liver disease, Upper GI series appreciated presbyesophagus, no further inpatient GI procedures planned
-Speech therapy consulted
Coronary artery disease status post stents
-hold aspirin since she is on anticoagulation
Acute on Chronic HFpEF
Acute Hypoxic Respiratory Failure requiring 5L
New onset dyspnea overnight 08/29-08/30 with associate confusion possible Hospital associated delirium
Lasix restarted IV 40 mg Daily with resolving CAMRON and new subjective shortness of breath, elevated BNP
CXR appreciated acute alveolar cardiogenic pulm edema vs severe b/l lower lobe pna (more likely edema given dramatic improvement with Lasix diuresis)
-daily weights I/O
-transferred to IMU for closer monitoring since improved.
-Oxygen requirement weaned to 2L
-IV lasix converted back to home PO lasix 40 mg daily with holding parameters (hold if NPO/not eating, Cr>1.8, or SBP<100)
Moderate Mitral Regurgitation�
Mild aortic stenosis
Interstitial lung disease on 2 L at bedtime
History of hemorrhoidal bleeding
Essential hypertension
-Continue metoprolol
Hyperlipidemia
-Continue Zetia
Hypothyroidism
-Continue levothyroxine
Polymyalgia rheumatica
-Continue prednisone
Fibromyalgia
-Continue Percocet
Psoriatic arthritis
Cervical radiculopathy
Spinal stenosis
Anxiety
-Continue venlafaxine
History of shingles
Former smoker
PT/OT
DVT prophylaxis - heparin ggt
Full Code
Physical Exam
General: No acute distress
HEENT: Normocephalic, Atraumatic, EOMI, MMM
Respiratory: Clear to Auscultation bilaterally
Cardiac: Normal S1/S2, tachycardic rate, irregularly irregular rhythm
GI: Soft, Nontender, Nondistended, Normal Bowel Sounds
Extremities: No Clubbing, Cyanosis, or Edema
Neuro: Nonfocal/Grossly Intact
Psych: Calm, Cooperative
Derm: No Visible lesions
Anticipated Discharge: 24 - 48 hours
Subjective/Interval History
-
Date of Service: September 02, 2023
Patient has intermittent dyspnea with activity. Intermittent palpitations as well. Denies chest pain.
Objective Data
-
Labs:
Laboratory Results
09/01/23 09/02/23 09/02/23
20:24 03:39 10:45
WBC 8.0
Hgb 12.6
Hct 37.1
Plt Count 184
APTT 39.0 H 110.9 H Pending
Sodium 139
Potassium 3.8
Chloride 108 H
Carbon Dioxide 23
BUN 37 H
Creatinine 1.6 H
Glucose 119 H
Calcium 9.0
Vital Signs:
Vital Signs
Temp Pulse Resp BP Pulse Ox
98.2 F 102 20 111/80 99
09/02/23 07:07 09/02/23 08:11 09/02/23 08:11 09/02/23 06:00 09/02/23 08:11
I&O
09/01/23 09/02/23 09/03/23
06:59 06:59 06:59
Intake Total 750 / 750 480 / 480
Output Total 2075 / 2075 600 / 600
Balance -1325 / -1325 -120 / -120
[2023-09-02] MEDS: LASIX 40 MG PO (09:09)
[2023-09-02] MEDS: PROTONIX 40 MG PO (09:10)
[2023-09-02] MEDS: EFFEXOR XR 75 MG PO (09:10)
[2023-09-02] MEDS: MIRALAX PO (09:10)
[2023-09-02] MEDS: TOPROL XL 75 MG PO ×2 (09:10→20:15)
--- NOTE | 2023-09-02 11:50 | W.PN.CARDCBS ---
Today's Communication / Plan
-
Pt getting Eliquis washout with cath Sep 03 2023.
Again reviewed Lexiscan MIBI with evidence of possible anterior and basilar to mid lateral ischemia with fixed apical defect. Prone images were not able to be done.
Again reviewed options with pt and she was agreeable to cath to eval coronary anatomy
Following cardiac catheterization and depending on findings, patient could be considered for JIAN/cardioversion for atrial fibrillation in the setting of ischemic versus tachycardia mediated cardiomyopathy
Continue oral Lasix.� Patient appears euvolemic. Monitor cr which has been stable at 1.6.
Monitor chest xray, mild to mod pleural effusion by chest xray Sep 01 2023.
Remains in atrial fibs/flutter with improved ventricular rate.� Continue Toprol XL 75 mg twice daily
Cont IV heparin while off Eliquis
Patient with new atrial flutter on admission and plan is for an eventual JIAN/CV to be considered after cardiac cath completed.
EF down to 40-45% this admission in the setting of atrial flutter. Will recheck in echo next 3 months as outpt.
Troponin was 0.152 on admission and trended down thereafter. Likely nonischemic myocardial injury troponin elevation in the setting on rapid atrial flutter, but with dyspnea on exertion ischemia work up ongoing.
Impression / Plan
-
.
PCP: Wilbert Figueroa
Ornamental Plasterer Helper: Dr. Santos
Impression:
Weight loss and dysphagia on admission 08/27/23
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
Newly diagnosed atrial flutter with RVR 08/27/23
Dyspnea on exertion
CAMRON
Elevated Troponin
CAD
s/p OM stent 10/08/17 with residual 40% stenosis of mid LAD and 50-60% stenosis of prox PDA
PCI RCA 07/2010 ([facility])
PCI LAD 2004 ([facility])
Chronic HFpEF
HTN
Hypertension
Mild peak/mean 22/13 mmHg and TAM 1.4 cm sq
HTN
Psoriatic arthritis
Polymyalgia rheumatica
Hyperlipidemia
Hx interstitial lung disease on chronic oxygen at night
Hypothyroidism
Anxiety
Fibromyalgia
Chronic dyspnea
Hx cervical radiculopathy
Statin intolerance
Hx left rotator cuff tear
Urethral stone w/ hydronephrosis 01/2018
Shingles 09/2022
Syncope 09/2022 in setting of GI illness/dehydration
Chronic pain syndrome on oxycodone daily
Echo 01/06/18:�Mild LVH, EF 50-55% possible lateral hypokinesis, normal RV, severely dilated LA, Mild to moderate MR, Mild aortic stenosis, peak/mean gradient 29/16, aortic valve area 1.6 cm�, Mild TR, pulmonary pressure 51-56 mmHg
Echo October 2018: Ejection fraction 60-65 percent, mild MR, mild , mild-moderate AI�������
Echo 07/2020: EF 60-65%, mild with MPG 14 mm Hg, TAM 1.7 cm2.
Echo 03/04/23:�EF 55-60% with mild MR, mild , aortic root 4 cm, trace pericardial effusion
Echo 06/04/23: EF 55 to 60%, mild concentric LVH, mild mitral stenosis with mean transmitral gradient 6 mmHg, moderate MR, mild peak/mean gradient 22/13 mmHg and TAM 1.4 cm sq, trace TR with pulmonary artery systolic pressure 26 mmHg mildly
dilated aortic root
Echo 08/29/2023: EF 40-45%, pleural effusion
Plan:
Mental status improved.
Pt getting Eliquis washout with cath Sep 03 2023.
Again reviewed Lexiscan MIBI with evidence of possible anterior and basilar to mid lateral ischemia with fixed apical defect. Prone images were not able to be done.
Again reviewed options with pt and she was agreeable to cath to eval coronary anatomy
Following cardiac catheterization and depending on findings, patient could be considered for JIAN/cardioversion for atrial fibrillation in the setting of ischemic versus tachycardia mediated cardiomyopathy
Continue oral Lasix.� Patient appears euvolemic. Monitor cr which has been stable at 1.6.
Monitor chest xray, mild to mod pleural effusion by chest xray Sep 01 2023.
Remains in atrial fibs/flutter with improved ventricular rate.� Continue Toprol XL 75 mg twice daily
Cont IV heparin while off Eliquis
Patient with new atrial flutter on admission and plan is for an eventual JIAN/CV to be considered after cardiac cath completed.
EF down to 40-45% this admission in the setting of atrial flutter. Will recheck in echo next 3 months as outpt.
Troponin was 0.152 on admission and trended down thereafter. Likely nonischemic myocardial injury troponin elevation in the setting on rapid atrial flutter, but with dyspnea on exertion ischemia work up ongoing.
Pt's son has been updated last 24 hrs.
HPI:
Patient came to ER from the cardiology office yesterday with new atrial flutter but also complains of weight loss and dysphagia, she is now admitted with plan for GI workup and cardiology has been consulted for ongoing atrial flutter. Patient
was seen by Dr. Santos in the office 08/27/2023 and had complaints including severe weakness and poor p.o. intake. He was found to be in atrial flutter with 2-1 block at rest. She has no history of atrial arrhythmia. She was sent to ER
thinking that she would need workup for her abdominal pain and weight loss. The patient has been seen by gastroenterology and the plan is for an upper GI series in the morning. She also had an abdominal ultrasound performed earlier today. In the
meantime she has remained in atrial flutter and is on a Cardizem drip at 5 mg/hr with HRs in the 80s to 90s and she denies any palpitations. She says she has ongoing dyspnea on exertion. Her troponin was elevated initially at 0.152 and trended
down thereafter. She has a history of CAD with previous LAD PCI in 2004, RCA PCI in 2010 and obtuse marginal stent in 2017. Her last ischemic evaluation was May 2018 that showed a small partially reversible inferolateral defect that was
improved from previous stress test.
Progress Note - Ornamental Plasterer Helper
Subjective
Date of Service: September 02, 2023
Pt seen and examined. No complaints. No chest pain or shortness of breath.
Objective
Labs:
09/02/23 03:39
09/02/23 03:39
Labs
Hgb 12.6 g/dL (12.0-16.0) 09/02/23 03:39
Hct 37.1 % (37.0-47.0) 09/02/23 03:39
Plt Count 184 10^3/uL (130-400) 09/02/23 03:39
APTT 110.9 Sec (23.4-35.0) H 09/02/23 03:39
Sodium 139 mmol/L (135-145) 09/02/23 03:39
Potassium 3.8 mmol/L (3.5-5.1) 09/02/23 03:39
BUN 37 mg/dl (7-17) H 09/02/23 03:39
Creatinine 1.6 mg/dL (0.6-1.0) H 09/02/23 03:39
Glucose 119 mg/dl (70-99) H 09/02/23 03:39
Vital Signs and I&O:
Vital Signs
Temp Pulse Resp BP Pulse Ox
98.2 F 141 26 154/127 99
09/02/23 11:06 09/02/23 10:00 09/02/23 10:00 09/02/23 10:00 09/02/23 10:32
Vital Signs
Temp Pulse Resp BP Pulse Ox
98.2 F 141 26 154/127 99
09/02/23 11:06 09/02/23 10:00 09/02/23 10:00 09/02/23 10:00 09/02/23 10:32
Intake & Output
08/31/23 09/01/23 09/02/23 09/03/23
06:59 06:59 06:59 06:59
Intake Total 440 / 440 750 / 750 480 / 480
Output Total 700 / 700 2075 / 2074 600 / 600
Balance -260 / -260 -1325 / -1325 -120 / -120
Physical Exam
Physical Exam
General: No acute distress, AAOX3
Neck: Negative JVD
Heart: Irregularly irregular, Negative S3 positive S1/S2, Negative S4, No murmur
Lungs: CTA b/l, negative wheezes/rales/rhonchi
Abd: Positive BS, NT/ND, neg rebound/rigidity/guarding
Ext: Negative cyanosis/clubbing/edema
Neuro: nonfocal
[2023-09-02 12:53] LABS: APTT 173.1 Sec (23.4-35.0)
[2023-09-02] MEDS: DELTASONE 5 MG PO (18:19)
[2023-09-02] MEDS: VITAMIN D3 (cholecalciferol) 25 MCG PO (18:19)
[2023-09-02] MEDS: KCL 10 MEQ PO (18:19)
[2023-09-02] MEDS: ZETIA 10 MG PO (18:19)
[2023-09-02] MEDS: THERAGRAN 1 TABLET PO (18:19)
[2023-09-02 20:57] LABS: APTT 106.8 Sec (23.4-35.0)
[2023-09-02] MEDS: PEPCID 20 MG PO (21:33)
[2023-09-03] VITALS (12 sets, daily range): BP systolic 97–153; BP diastolic 70–108; BMI 31.2
[2023-09-03] MEDS: HEPARIN 25000 UNITS/250 ML IV ×2 (02:05→19:21)
[2023-09-03 03:35] LABS: Hematocrit 33.9 % (37.0-47.0); Hemoglobin 11.4 g/dL (12.0-16.0); Mean Corp Hgb Conc. 33.6 g/dL (33.0-37.0); Mean Corpuscular Hgb 32.6 pg (27.0-31.0); Mean Corpuscular Volume 96.9 fL (81.0-99.0); Mean Platelet Volume 10.3 fL (7.4-10.4); Platelet Count 165 10^3/uL (130-400); White Blood Cell Count 6.3 10^3/uL (4.8-10.8)
[2023-09-03 03:53] LABS: APTT 115.6 Sec (23.4-35.0)
[2023-09-03 04:17] LABS: Blood Urea Nitrogen 40 mg/dl (7-17); Calcium 8.9 mg/dl (8.4-10.2); Carbon Dioxide 28 mmol/L (22-30); Chloride 108 mmol/L (98-107); Estimated Creatinine Clearance 23 ml/min; Glucose 109 mg/dl (70-99); Phosphorus 4.6 mg/dl (2.5-4.5); Sodium 140 mmol/L (135-145); eGFR 28.84
--- NOTE | 2023-09-03 05:02 | PTCARENOTE ---
Pt AAOx3, afib with rate 100s-130s. Pt was able to transfer to bedside commode to void with assist x1. Pt did c/o increasing SOB with activity, stating 'I needed to take a break just from wiping myself.' Pt educated and encouraged to allow staff to
assist with ADLs as needed. Heparin gtt in place through L wrist IV, titrated per protocol and with RN cosign when necessary. Safe environment maintained. Call valdes within reach.
[2023-09-03] MEDS: SYNTHROID 75 MCG PO (06:42)
[2023-09-03] MEDS: XOPENEX 0.63 MG INHALANT SOLUTION 0.630000000000000004 MG INH ×3 (07:29→19:26)
--- NOTE | 2023-09-03 08:36 | W.PN.HOSP.TC ---
Today's Communication/Plan
-
For cardiac catheterization today
Assessment / Plan
Assessment / Plan
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 Santos for new onset A-fib following routine visit.� No prior history of A-fib.� Endorsed exertional dyspnea several months and fatigue.� She also reported abd pain attacks that occur whenever she drinks liquids.� Pain
last 15 minutes and then subsides.� reports intermittent nausea denies vomiting.� Reported weight loss 20 pounds in the past 6 months with associate appetite loss.�
# New onset atrial fibrillation with RVR
#aflutter
-Cardizem drip converted to metoprolol as per Cardio
-TSH wnl, Chads Vasc score of 5, on heparin ggt
-patient recently had echo in May
-S/p stress test 09/01 concerning for ischemia
-Back on heparin drip, plan for cardiac catheterization on 09/03 after Eliquis washout
Non-PA troponin elevation
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
-Creatinine of 2.6 improved to 1.7
-Lasix resumed with fluid overload as noted below, Cr remains stable/improved
-Monitor Renal Function
# Abdominal pain/dysphagia to solids/weight loss suggestive of underlying GI pathology such as ulcer/esophagitis/GI malignancy
#hx of Hiatal hernia/GERD
-Continue omeprazole, famotidine
-GI consult appreciated , Abd US appreciated likely fatty liver disease
-Upper GI series appreciated presbyesophagus, no further inpatient GI procedures planned
-SPL recommends regular solids, thin liquids, esophageal precautions, meds as tolerated
Coronary artery disease status post stents
-Hold aspirin since she is on anticoagulation
Acute on Chronic HFpEF
Acute Hypoxic Respiratory Failure requiring 5L
New onset dyspnea overnight 08/29-08/30 with associate confusion possible Hospital associated delirium
-08/30 Lasix restarted IV 40 mg Daily with resolving CAMRON and new subjective shortness of breath, elevated BNP
-08/30 CXR appreciated acute alveolar cardiogenic pulm edema vs severe b/l lower lobe pna (more likely edema given dramatic improvement with Lasix diuresis)
-daily weights I/O
-transferred to IMU for closer monitoring since improved.
-Oxygen requirement weaned to 2L
-IV lasix converted back to home PO lasix 40 mg daily with holding parameters (hold if NPO/not eating, Cr>1.8, or SBP<100)
Obesity due to excess calories
� Affects all aspects of care
Moderate Mitral Regurgitation�
Mild aortic stenosis
Interstitial lung disease on 2 L at bedtime
History of hemorrhoidal bleeding
Essential hypertension
-Continue metoprolol
Hyperlipidemia
-Continue Zetia
Hypothyroidism
-Continue levothyroxine
Polymyalgia rheumatica
-Continue prednisone
Fibromyalgia
-Continue Percocet
Psoriatic arthritis
Cervical radiculopathy
Spinal stenosis
Anxiety
-Continue venlafaxine
History of shingles
Former smoker
PT/OT
DVT prophylaxis - heparin ggt
Full Code
Physical Exam
General: Obese, no acute distress
HEENT: Normocephalic, Atraumatic, EOMI, MMM
Respiratory: Clear to Auscultation bilaterally
Cardiac: Normal S1/S2, tachycardic rate, irregularly irregular rhythm
GI: Soft, Nontender, Nondistended, Normal Bowel Sounds
Extremities: No Clubbing, Cyanosis, or Edema
Neuro: Nonfocal/Grossly Intact
Psych: Calm, Cooperative
Derm: No Visible lesions
Anticipated Discharge: 24 - 48 hours
Subjective/Interval History
-
Date of Service: September 03, 2023
Patient reports intermittent palpitations. No chest pain. She is nervous about her procedure today.
Objective Data
-
Labs:
Laboratory Results
09/02/23 09/03/23 09/03/23
20:35 03:26 10:00
WBC 6.3
Hgb 11.4 L
Hct 33.9 L
Plt Count 165
APTT 106.8 H 115.6 H Pending
Sodium 140
Potassium 4.0
Chloride 108 H
Carbon Dioxide 28
BUN 40 H
Creatinine 1.7 H
Glucose 109 H
Calcium 8.9
Vital Signs:
Vital Signs
Temp Pulse Resp BP Pulse Ox
98.3 F 99 20 122/58 99
09/03/23 07:20 09/03/23 07:31 09/03/23 07:31 09/02/23 22:27 09/03/23 07:31
I&O
09/02/23 09/03/23 09/04/23
06:59 06:59 06:59
Intake Total 480 / 480 960 / 960
Output Total 600 / 600
Balance -120 / -120 960 / 960
[2023-09-03] MEDS: EFFEXOR XR 75 MG PO (09:14)
[2023-09-03] MEDS: KCL 10 MEQ PO (09:14)
[2023-09-03] MEDS: PROTONIX 40 MG PO (09:14)
[2023-09-03] MEDS: TOPROL XL 75 MG PO ×2 (09:14→20:25)
[2023-09-03] MEDS: MIRALAX PO (09:15)
--- NOTE | 2023-09-03 10:50 | ITS.CL.CATH ---
Critical Care Unit Nurse - Catheterization
Cardiac Catheterization
Procedure Report:
LEFT HEART CATHETERIZATION
Date of Procedure: September 03, 2023
Referring: Dr. Isidro Valdes
PROCEDURES:
1. Left heart catheterization, coronary angiogram.
2. Ultrasound-guided access
INDICATION: Ms Larry is a 88-year-old female with past medical history of polymyalgia rheumatica on chronic steroids, hyperlipidemia with reported statin intolerance, coronary artery disease with prior stenting of the LAD, most recently and distal
RCA, most recently to OM1 who presented this admission with ongoing dyspnea on exertion found to have new atrial flutter, mild troponin elevation as well as new mild left ventricular dysfunction, LVEF of 40 to 45% with a subsequent Lexiscan MIBI
with evidence of possible anterior and basilar to mid lateral ischemia with fixed apical defect. Prone images were not able to be done. Thus, patient is now being referred for a left heart catheterization to rule out obstructive CAD.
ACCESS: Right radial artery, 6 Dutch sheath, under ultrasound guidance
HEMODYNAMICS : (mmHg)
AO (s/d) : 146/88
LV (s/d) : 154/21
LVEDP : 25
CORONARY FINDINGS
Dominance: Right
LEFT MAIN: The left main is large in caliber, short in distress to the left into descending artery and the left circumflex artery. There is minimal luminal irregularities.
LEFT ANTERIOR DESCENDING: The left anterior descending artery is a large-caliber vessel which gives rise to 1 major medium caliber diagonal branch and multiple small to medium caliber diagonal branches as it courses through the anterior
interventricular groove and wraps around the apex. There is a long area of up to 70% mid LAD stenosis, partially in-stent restenosis (Cypher stent). Otherwise there is mild diffuse atherosclerotic plaque.
CIRCUMFLEX: The circumflex is a large caliber nondominant vessel.� OM1 is a large-caliber vessel with eccentric 40 to 50% in-stent restenosis in the proximal portion..� A large second obtuse marginal branch has an eccentric 60-70 % stenosis in its
midportion as well.
RIGHT CORONARY: The origin of the right coronary artery was cannulated with an AL-1 diagnostic catheter.� The right coronary artery is a medium caliber dominant vessel with diffuse 30-40% luminal narrowings in its midportion.� There is a stent in
the distal right coronary artery that is widely patent with a 50-60% stenosis in the proximal PDA beyond the stented segment.
SEDATION: 72 minutes of procedural sedation was utilized. An independent mobile paramedical examiner was present to assist with and help manage the patient's level of consciousness and physiologic status.
RADIATION SUMMARY: Fluoro Time (min): 22.4, Dose (mGy): 796.93, DAP (Gy.cm2) : 60.2
Closure Device: Vascular band over right radial artery, 11 cc of air.
CONCLUSIONS
1. Long area of up to 70% stenosis in the mid LAD, partially in-stent restenosis.
2. Eccentric 60 to 70% mid-OM 2 stenosis. 40-50% OM1 in-stent restenosis.
3. Distal RCA stent is widely patent with a 50 to 60% stenosis in the proximal RPDA beyond the stented segment.
4. Significant elevated LVEDP.
RECOMMENDATIONS
1. Given her renal dysfunction and significant spasm via right radial artery approach, we will plan for staged PCI to the mid LAD in the next 24 to 48 hours we are femoral approach.
2. Continue optimization of medications for underlying coronary artery disease and her new atrial arrhythmia.
3. For now we will plan for aspirin and Plavix along with a heparin drip with eventual plan to switch to Eliquis. We would likely do triple therapy for 1 week post PCI, then switch to continuing Plavix and Eliquis.
4. Wean radial band per protocol.
5. IV diuresis given elevated LVEDP with close monitoring of renal function.
Copy to: Isidro Sanabria
Lupe Paiz MD, [facility], [facility]
--- NOTE | 2023-09-03 10:59 | PTCARENOTE ---
Report given to ALEXANDRE Carpenter, pt sent to [facility] with 2 staff members at 10:30. Hep gtt turned off at this time.
[2023-09-03 11:40] LABS: ACT-LR - POC 273 Seconds (116-155)
[2023-09-03 11:59] LABS: ACT-LR - POC 279 Seconds (116-155)
--- NOTE | 2023-09-03 12:25 | PTCARENOTE ---
Orders noted for transfer to IVU, discharge rn in IMU updated.
[2023-09-03] MEDS: NSS 1000 IV (13:00)
[2023-09-03] MEDS: LASIX 40 MG IV (13:00)
--- NOTE | 2023-09-03 13:00 | PTCARENOTE ---
pt received post cardiac cath, transferred from IMU to room 2256. Pt AAOX3, forgetful at times. denies pain at this time. afib on telemetry heart rate in low 100s. pulses palpable. +1 edema in lower extremities. pt on 4L nasal cannula, sat 99%. fine
crackles in bilateral bases. active bowel sounds. voided clear yellow urine on bedpan, bedrest at this time. right radial TR intact with eccymosis- per patient and catholic priest RN eccymosis is not new. Right arm warm to touch, pulse ox 99% on right
hand. see worklist for full nursing assessment and interventions. pt and family updated on plan of care.
--- NOTE | 2023-09-03 13:09 | PTCARENOTE ---
Report given to IVU ALEXANDRE Wang, pt's belongings sent downstairs to pt's new room 2256 at this time.
--- NOTE | 2023-09-03 17:03 | CM ---
Patient transferred to IVU from IMU.
Reviewed initial clinical info. Pt. resides alone in a [place] community. Home is a 1 story home, accessible via 1 [address].
Functionally, patient reports that she is indep. with use of a SPC. She is still driving.
Met w/ patient, dtr. at bedside. Dtr. reports that patient has been declining prior to admission w/ SOB and mobility. Dtr. has provided pt. with a rollator for use but patient has refused to use this as it is too heavy. Pt. has O2, which she uses at
night (2L).
Discussed possible DC needs. Will need PT evaluation.
Goal is for home w/ [facility] + possible private duty care. Will provide resources for dtr. to look in to.
Also discussed SNF placement, if needed.
Will see PT evaluation and recommendation and will follow closely.
[2023-09-03] MEDS: THERAGRAN 1 TABLET PO (17:29)
[2023-09-03] MEDS: DELTASONE 5 MG PO (17:29)
[2023-09-03] MEDS: VITAMIN D3 (cholecalciferol) 25 MCG PO (17:29)
[2023-09-03] MEDS: LIPITOR 40 MG PO (17:29)
[2023-09-03] MEDS: ZETIA 10 MG PO (17:29)
--- NOTE | 2023-09-03 19:00 | PTCARENOTE ---
report received from previous RN, walking rounds done. pt in bed, AAOx4. pt denies any pain. VSS. AFIB on monitor, HR 110's. POX 97% on 2LNC. Heparin gtt restarted @ previous rate per orders--600 units/hour. right radial cath site dressing CDI and
ecchymotic. no bleeding or hematoma noted. PIV intact and patent. see worklist for full assessment, VS, and interventions. pt resting comfortably.
[2023-09-03] MEDS: PEPCID 20 MG PO (20:25)
[2023-09-04] VITALS (10 sets, daily range): BP systolic 102–135; BP diastolic 58–99
[2023-09-04 01:53] LABS: Hematocrit 31.8 % (37.0-47.0); Hemoglobin 10.8 g/dL (12.0-16.0); Mean Corpuscular Hgb 32.3 pg (27.0-31.0); Mean Corpuscular Volume 95.2 fL (81.0-99.0); Mean Platelet Volume 10.5 fL (7.4-10.4); Platelet Count 175 10^3/uL (130-400); Red Blood Cell Count 3.34 10^6/uL (4.20-5.40); Red Cell Dist. Width 14.4 % (11.5-14.5); White Blood Cell Count 6.3 10^3/uL (4.8-10.8)
[2023-09-04 02:05] LABS: APTT 68.7 Sec (23.4-35.0)
[2023-09-04 02:36] LABS: Blood Urea Nitrogen 37 mg/dl (7-17); Calcium 8.3 mg/dl (8.4-10.2); Carbon Dioxide 29 mmol/L (22-30); Chloride 107 mmol/L (98-107); Estimated Creatinine Clearance 25 ml/min; Glucose 111 mg/dl (70-99); Potassium 3.6 mmol/L (3.5-5.1); Sodium 138 mmol/L (135-145); eGFR 33.52
--- NOTE | 2023-09-04 05:00 | PTCARENOTE ---
no changes in assessment overnight. VSS. AFIB. 2LNC. Heparin gtt maintained. AM labs drawn and sent. EKG done. pt resting between care.
[2023-09-04] MEDS: XOPENEX 0.63 MG INHALANT SOLUTION 0.630000000000000004 MG INH ×3 (07:21→19:22)
[2023-09-04 08:19] LABS: Glucose - Point of Care 91 mg/dl (70-99)
--- NOTE | 2023-09-04 09:24 | W.PN.HOSP.TC ---
Today's Communication/Plan
-
see bold
Assessment / Plan
Assessment / Plan
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
her occupational therapist aide office Dr. Santos for new onset A-fib following routine visit.� No prior history of A-fib.� Endorsed exertional dyspnea several months and fatigue.� She also reported abd pain attacks that occur whenever she drinks liquids.� Pain
last 15 minutes and then subsides.� reports intermittent nausea denies vomiting.� Reported weight loss 20 pounds in the past 6 months with associate appetite loss.�
# New onset atrial fibrillation with RVR
#aflutter
-Cardizem drip converted to metoprolol as per Cardio
-TSH wnl, Chads Vasc score of 5, on heparin ggt
-patient recently had echo in May
-S/p stress test 09/01 concerning for ischemia
-Back on heparin drip, cardiac catheterization on 09/03 shows 70% stenosis of the mid LAD, partially in-stent restenosis
-Patient for PCI today
Non-PA troponin elevation
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
-Creatinine of 2.6 improved to 1.5
-Lasix resumed with fluid overload as noted below, Cr remains stable/improved
-Monitor Renal Function
# Abdominal pain/dysphagia to solids/weight loss suggestive of underlying GI pathology such as ulcer/esophagitis/GI malignancy
#hx of Hiatal hernia/GERD
-Continue omeprazole, famotidine
-GI consult appreciated , Abd US appreciated likely fatty liver disease
-Upper GI series appreciated presbyesophagus, no further inpatient GI procedures planned
-SPL recommends regular solids, thin liquids, esophageal precautions, meds as tolerated
Coronary artery disease status post stents
-Hold aspirin since she is on anticoagulation
Acute on Chronic HFpEF
Acute Hypoxic Respiratory Failure requiring 5L
New onset dyspnea overnight 08/29-08/30 with associate confusion possible Hospital associated delirium
-08/30 Lasix restarted IV 40 mg Daily with resolving CAMRON and new subjective shortness of breath, elevated BNP
-08/30 CXR appreciated acute alveolar cardiogenic pulm edema vs severe b/l lower lobe pna (more likely edema given dramatic improvement with Lasix diuresis)
-daily weights I/O
-transferred to IMU for closer monitoring since improved.
-Oxygen requirement weaned to 2L
-IV lasix converted back to home PO lasix 40 mg daily with holding parameters (hold if NPO/not eating, Cr>1.8, or SBP<100)
Obesity due to excess calories
� Affects all aspects of care
Moderate Mitral Regurgitation�
Mild aortic stenosis
Interstitial lung disease on 2 L at bedtime
History of hemorrhoidal bleeding
Essential hypertension
-Continue metoprolol
Hyperlipidemia
-Continue Zetia
Hypothyroidism
-Continue levothyroxine
Polymyalgia rheumatica
-Continue prednisone
Fibromyalgia
-Continue Percocet
Psoriatic arthritis
Cervical radiculopathy
Spinal stenosis
Anxiety
-Continue venlafaxine
History of shingles
Former smoker
PT/OT
DVT prophylaxis - heparin ggt
Full Code
Physical Exam
General: Obese, no acute distress
HEENT: Normocephalic, Atraumatic, EOMI, MMM
Respiratory: Bibasilar crackles
Cardiac: Normal S1/S2, tachycardic rate, irregularly irregular rhythm
GI: Soft, Nontender, Nondistended, Normal Bowel Sounds
Extremities: No Clubbing, Cyanosis
Mild lower extremity edema
Neuro: Nonfocal/Grossly Intact
Psych: Calm, Cooperative
Derm: Diffuse scattered ecchymosis, especially on the hands and forearms
Anticipated Discharge: > 48 hours
Subjective/Interval History
-
Date of Service: September 04, 2023
Patient reports dyspnea with activity. No palpitations, no chest pain, no nausea, no vomiting.
Objective Data
-
Labs:
Laboratory Results
09/04/23 09/04/23
01:46 08:58
WBC 6.3
Hgb 10.8 L
Hct 31.8 L
Plt Count 175
APTT 68.7 H Pending
Sodium 138
Potassium 3.6
Chloride 107
Carbon Dioxide 29
BUN 37 H
Creatinine 1.5 H
Glucose 111 H
Calcium 8.3 L
Vital Signs:
Vital Signs
Temp Pulse Resp BP Pulse Ox
98.4 F 120 22 118/99 94
09/04/23 08:12 09/04/23 07:23 09/04/23 08:12 09/04/23 04:07 09/04/23 08:12
I&O
09/03/23 09/04/23 09/05/23
06:59 06:59 06:59
Intake Total 960 / 960 486.0 / 486.0
Output Total 400 / 400
Balance 960 / 960 86.0 / 86.0
[2023-09-04 09:28] LABS: APTT 97.3 Sec (23.4-35.0)
[2023-09-04] MEDS: TOPROL XL 75 MG PO ×2 (09:48→20:49)
[2023-09-04] MEDS: LOW STRENGTH ASPIRIN 81 MG PO (09:48)
[2023-09-04] MEDS: PROTONIX 40 MG PO (09:49)
[2023-09-04] MEDS: EFFEXOR XR 75 MG PO (09:49)
[2023-09-04] MEDS: PLAVIX 75 MG PO (09:49)
[2023-09-04] MEDS: KCL 10 MEQ PO (09:49)
[2023-09-04] MEDS: MIRALAX PO (10:04)
[2023-09-04] MEDS: SYNTHROID PO (10:05)
[2023-09-04 10:43] LABS: ACT-LR - POC 226 Seconds (116-155)
--- NOTE | 2023-09-04 13:29 | ITS.CL.CATH ---
Hydraulic Oil Tool Operator - Catheterization
Cardiac Catheterization
Procedure Report:
LEFT HEART CATHETERIZATION AND CORONARY INTERVENTION
�
Date of Procedure:�September 04, 2023
�
Referring: Dr. Isidro Valdes
�
PROCEDURES:
1.� Selective left coronary angiogram.
2.� Ultrasound-guided access
3. Successful percutaneous coronary artery intervention of 70% mid LAD (in setting of anterior ischemia on recent Lexiscan MIBI) with a 2.5 x 33 mm Xience mary point drug-eluting stent, successfully postdilated with a 2.75 x 20 mm NC balloon at 18
jean-paul distally and a 3.0 x 15 mm NC balloon at 18 jean-paul proximally with an excellent angiographic result.
4. Physiologic assessment of proximal to mid left circumflex with IFR
�
INDICATION: Ms Larry is a 88-year-old female with past medical history of polymyalgia rheumatica on chronic steroids, hyperlipidemia with reported statin intolerance, coronary artery disease with prior stenting of the LAD, most recently and distal
RCA, most recently to OM1 who presented this admission with ongoing dyspnea on exertion found to have new atrial flutter, mild troponin elevation as well as new mild left ventricular dysfunction, LVEF of 40 to 45% with a subsequent Lexiscan MIBI
with evidence of possible anterior and basilar to mid lateral ischemia with fixed apical defect. Prone images were not able to be done.� She underwent a diagnostic left heart catheterization and was found to have significant mid LAD disease however
given she had significant spasm via the right radial approach in the setting of renal dysfunction decision was made to stage LAD PCI for which she is being brought back today via femoral approach. She was loaded with 600 mg of Plavix yesterday.
�
ACCESS: Right common femoral artery, 6 Ivorian sheath, under ultrasound guidance using a micropuncture kit
�
HEMODYNAMICS : (mmHg)
AO (s/d) : 147/82
LV (s/d) : 151/28
LVEDP : 26
CORONARY FINDINGS
Dominance: Right
LEFT MAIN: The left main is large in caliber, short in distress to the left into descending artery and the left circumflex artery.� There is minimal luminal irregularities.
LEFT ANTERIOR DESCENDING: The left anterior descending artery is a large-caliber vessel which gives rise to 1 major medium caliber diagonal branch and multiple small to medium caliber diagonal branches as it courses through the anterior
interventricular groove and wraps around the apex.� There is a long area of up to 70% mid LAD stenosis, partially in-stent restenosis (Cypher stent).� Otherwise there is mild diffuse atherosclerotic plaque.
CIRCUMFLEX: The circumflex is a large caliber nondominant vessel.� Proximal to mid left circumflex has up to 50% stenosis. OM1 is a large-caliber vessel with eccentric 40 to 50% in-stent restenosis in the proximal portion..� A large second obtuse
marginal branch has an eccentric 60-70 % stenosis in its midportion as well.
RIGHT CORONARY: The right coronary artery was not selectively shot and this study. On diagnostic study yesterday, the right coronary artery is a medium caliber dominant vessel with diffuse 30-40% luminal narrowings in its midportion.� There is a
stent in the distal right coronary artery that is widely patent with a 50-60% stenosis in the proximal PDA beyond the stented segment.
�
CORONARY INTERVENTION: The left coronary artery was selectively engaged using a 6 Ivorian XB 3.5 guide catheter. Additional heparin was given to maintain a therapeutic ACT throughout the case. A 190 cm 0.014' BMW wire was across the mid LAD
stenosis into the distal vessel. The mid LAD disease was predilated using a 2.5 x 20 mm semi-compliant balloon with good expansion. The area was then stented using a 2.5 x 33 mm Xience mary point drug-eluting stent. Post dilatation of the stent
was performed using a 2.75 x 20 mm NC trek balloon at 18 jean-paul distally and a 3.0 x 15 mm NC trek balloon at 18 jean-paul proximally with an excellent angiographic result.
HEMODYNAMIC ASSESSMENT OF THE PROXIMAL TO MID LEFT CIRCUMFLEX ARTERY WITH A BridgefyO OMNI WIRE: The origin of the left coronary artery was cannulated with a 6 Fr XB 3.5 guide catheter. Intravenous heparin was administered and the ACT was followed
during the procedure. Two hundred micrograms of intracoronary nitroglycerin was given through the guide catheter. A [place] Omni wire was advanced to the guide catheter tip and normalized in the left main. The Omni wire was then carefully
manipulated across the stenosis in the proximal to mid left circumflex with the iFR above the ischemic threshold serially measuring 1.0 x 3. The Omni wire was then pulled back to the guide catheter where the Pd/Pa measured 1.0 confirming no
baseline drift in pressure readings
SEDATION: 74 minutes of procedural sedation was utilized.� An independent senior medical director was present to assist with and help manage the patient's level of consciousness and physiologic status.
RADIATION SUMMARY:� Fluoro Time (min): 9.8, Dose (mGy): 524.9, DAP (Gy.cm2) : 34.6
�
Closure Device: 6 Ivorian Angio-Seal over the right common femoral artery with successful hemostasis.
�
CONCLUSIONS
1.� Long area of up to 70% stenosis in the mid LAD, partially in-stent restenosis. Successful percutaneous coronary artery intervention of 70% mid LAD (in setting of anterior ischemia on recent Lexiscan MIBI) with a 2.5 x 33 mm Xience mary point
drug-eluting stent, successfully postdilated with a 2.75 x 20 mm NC balloon at 18 jean-paul distally and a 3.0 x 15 mm NC balloon at 18 jean-paul proximally with an excellent angiographic result.
2.� Proximal to mid left circumflex has up to 50% stenosis. iFR was negative at 1.0.
3. 60 to 70% mid-OM 2 stenosis.� 40-50% OM1 in-stent restenosis.
3.� Distal RCA stent is widely patent with a 50 to 60% stenosis in the proximal RPDA beyond the stented segment.
4.� Significant elevated LVEDP.
�
RECOMMENDATIONS
1.� Plan for dual antiplatelet therapy along with Eliquis for the next week then plan to continue Plavix and Eliquis with close monitoring of blood counts.
2.� Continue optimization of medications for underlying coronary artery disease and her new atrial arrhythmia.
3.� IV diuresis given elevated LVEDP with close monitoring of renal function.
4. Aggressive management of cardiovascular risk factors.
�
Copy to: Tomy Sanabriaic Gejer
Lupe Paiz MD, FACC, [facility]
--- NOTE | 2023-09-04 14:35 | PTCARENOTE ---
pt back from recyclable materials sorter, right groin is CDI. pt offers no complaints at this time. pt educated on plan of care adn verbalized understanding. vss. call valdes within reach.
[2023-09-04] MEDS: THERAGRAN 1 TABLET PO (18:58)
[2023-09-04] MEDS: LIPITOR 40 MG PO (18:59)
[2023-09-04] MEDS: ZETIA 10 MG PO (18:59)
[2023-09-04] MEDS: DELTASONE 5 MG PO (18:59)
[2023-09-04] MEDS: VITAMIN D3 (cholecalciferol) 25 MCG PO (18:59)
--- NOTE | 2023-09-04 19:22 | PTCARENOTE ---
pt is afib on the monitor, hr in the 100s, VSS. PT offers no complaints at this time. right groin slight ooze, pressure held 5 minutes and dressing changed. right radial is ecchymotic. pt educated on plan of care and pt verbalized understanding.
call valdes within reach.
[2023-09-04] MEDS: PEPCID 20 MG PO (22:47)
[2023-09-04] MEDS: ELIQUIS 2.5 MG PO (22:47)
[2023-09-05] VITALS (10 sets, daily range): BP systolic 90–128; BP diastolic 50–89; PULSE 112; O2SAT 100
--- NOTE | 2023-09-05 00:26 | PTCARENOTE ---
Received pt at handoff. R groin dressing c/d/i w/ ecchymosis. R wrist dressing c/d/i and soft. Tele- Afib. HR 100-120s. Ambulatory to bedside commode via standby assist.
At 23:30 while palpitating R wrist, small hard spots noted. Pt states no pain/discomfort at the site. Evgeny BLOCK notified and at bedside. Removed dressing. Manual pressure was held. MARIANO bandage and warm compress applied. Re-educated pt on activity
restrictions. Verbalizes understanding. Currently resting in bed; call lucio w/in reach.
--- NOTE | 2023-09-05 01:12 | W.PN.UPDATE ---
Update Note
Progress Note Update
-came in to eval R radial site. Pt has some bruising over the wrist extending upto midway of forearm and down to fingers, likely small hematoma at the wrist. Radial pulse is 2+, no pulsatile mass appreciated, full ROM and intact sensation in digits
and wrist, mild discomfort with palpation, but otherwise, denies any pain. Put on nae wrap and warm compresses.
--- NOTE | 2023-09-05 01:34 | PTCARENOTE ---
Received pt at handoff. R groin dressing c/d/i w/ ecchymosis. R wrist dressing c/d/i and soft. Tele- Afib. HR 100-120s. Ambulatory to bedside commode via standby assist.
At 23:30 while palpitating R wrist pt w/ mild discomfort and ecchymotic. Evgeny BLOCK notified and bedside. MARIANO bandage and warm compress applied.
[2023-09-05 03:36] LABS: Hematocrit 32.4 % (37.0-47.0); Hemoglobin 10.7 g/dL (12.0-16.0); Mean Platelet Volume 10.4 fL (7.4-10.4); Platelet Count 174 10^3/uL (130-400); Red Blood Cell Count 3.34 10^6/uL (4.20-5.40); Red Cell Dist. Width 14.4 % (11.5-14.5); White Blood Cell Count 8.7 10^3/uL (4.8-10.8)
[2023-09-05 04:01] LABS: Blood Urea Nitrogen 35 mg/dl (7-17); Calcium 8.9 mg/dl (8.4-10.2); Carbon Dioxide 27 mmol/L (22-30); Chloride 106 mmol/L (98-107); Estimated Creatinine Clearance 22 ml/min; Glucose 120 mg/dl (70-99); Potassium 4.2 mmol/L (3.5-5.1); Sodium 137 mmol/L (135-145); eGFR 28.84
[2023-09-05] MEDS: XOPENEX 0.63 MG INHALANT SOLUTION 0.630000000000000004 MG INH ×3 (07:44→19:36)
[2023-09-05] MEDS: PROTONIX 40 MG PO (08:33)
[2023-09-05] MEDS: SYNTHROID 75 MCG PO (08:33)
[2023-09-05] MEDS: PLAVIX 75 MG PO (08:34)
[2023-09-05] MEDS: TOPROL XL 75 MG PO ×2 (08:34→22:28)
[2023-09-05] MEDS: ELIQUIS 2.5 MG PO ×2 (08:34→22:28)
[2023-09-05] MEDS: LOW STRENGTH ASPIRIN 81 MG PO (08:34)
[2023-09-05] MEDS: EFFEXOR XR 75 MG PO (08:34)
--- NOTE | 2023-09-05 09:44 | W.PN.CARDCBS ---
Addendum entered and electronically signed by Sonam Singh PA-C 09/05/23 16:05:
called and updated patient's son, Dr. Larry via telephone for 4:16
Addendum entered and electronically signed by Lupe Paiz MD 09/05/23 16:03:
I saw and examined the patient.
The Chief Deputy Sheriff's note was reviewed and I agree with the note.
Comment: Overall patient is doing well and does not offer significant complaints other than ongoing dyspnea.
Vital signs reviewed. Lab work reviewed.
Recommendations:
1. On exam there is extensive ecchymosis in bilateral upper extremities, a lot of this was there already pre-right radial heart catheterization 2 days ago however given focal small area of swelling at the right radial site we will check a ultrasound
to rule out a pseudoaneurysm or hematoma at the right radial site.
2. Given elevated LVEDP on cath, plan to continue aggressive IV diuresis with close monitoring of renal function, ins and outs and repletion of electrolytes as needed. Continue to wean oxygen as tolerated.
3. Amio load over the weekend with tentative plan for JIAN cardioversion on Friday to achieve sinus rhythm. Continue beta-iain for now along with amiodarone for heart rate control.
4. Status post LAD PCI yesterday with plan for triple therapy for 1 week then discontinue aspirin with plan to continue Plavix and low-dose Eliquis given her age and renal function.
Lupe Paiz MD, [facility], [facility]
Original Note:
Today's Communication / Plan
-
RUE US
amio 400mg BID
continue triple therapy for 1 week then stop asa, continue plavix and eliquis
JIAN/CV Friday
continue toprol
IV lasix 40mg BID
wean supp O2
Impression / Plan
-
.
PCP: Wilbert Figueroa
Hydro Electric Station Operator: Dr. Santos
Impression:
Weight loss and dysphagia on admission 08/27/23
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
Newly diagnosed atrial flutter with RVR 08/27/23
Dyspnea on exertion
CAMRON
Elevated Troponin
CAD
s/p OM stent 10/08/17 with residual 40% stenosis of mid LAD and 50-60% stenosis of prox PDA
PCI RCA 07/2010 ([facility])
PCI LAD 2004 ([facility])
Chronic HFpEF
HTN
Hypertension
Mild peak/mean 22/13 mmHg and TAM 1.4 cm sq
HTN
Psoriatic arthritis
Polymyalgia rheumatica
Hyperlipidemia
Hx interstitial lung disease on chronic oxygen at night
Hypothyroidism
Anxiety
Fibromyalgia
Chronic dyspnea
Hx cervical radiculopathy
Statin intolerance
Hx left rotator cuff tear
Urethral stone w/ hydronephrosis 01/2018
Shingles 09/2022
Syncope 09/2022 in setting of GI illness/dehydration
Chronic pain syndrome on oxycodone daily
Echo 01/06/18:�Mild LVH, EF 50-55% possible lateral hypokinesis, normal RV, severely dilated LA, Mild to moderate MR, Mild aortic stenosis, peak/mean gradient 29/16, aortic valve area 1.6 cm�, Mild TR, pulmonary pressure 51-56 mmHg
Echo October 2018: Ejection fraction 60-65 percent, mild MR, mild , mild-moderate AI�������
Echo 07/2020: EF 60-65%, mild with MPG 14 mm Hg, TAM 1.7 cm2.
Echo 03/04/23:�EF 55-60% with mild MR, mild , aortic root 4 cm, trace pericardial effusion
Echo 06/04/23: EF 55 to 60%, mild concentric LVH, mild mitral stenosis with mean transmitral gradient 6 mmHg, moderate MR, mild peak/mean gradient 22/13 mmHg and TAM 1.4 cm sq, trace TR with pulmonary artery systolic pressure 26 mmHg mildly
dilated aortic root
Echo 08/29/2023: EF 40-45%, pleural effusion
Plan:
-she presented due to new aflutter and GI issues
-trop was 0.152. echo showed new EF 40-45%. Lexiscan MIBI with evidence of possible anterior and basilar to mid lateral ischemia with fixed apical defect. underwent cath resulting in LAD PCI 09/04/23.
-R radial site with significant bruising to R hand and forearm. patient on chronic steroids so with chronic ecchymosis and discoloration. hand warm, 2+ radial pulse. check RUE US.
-remains in afib with RVR. continue toprol 75mg BID. add amiodarone 400mg BID. Follow QTc by EKG.
-eliquis resumed post cath. plan for triple therapy for 1 week then stop asa and continue plavix, eliquis 2.5mg BID
-tentatively planned for JIAN/CV on Friday09/08/23 if does not convert. d/w GI, no contraindication to JIAN from their standpoint.
-remains on supp O2, wean as able. normally on nocturnal supp O2 only as OP. Cr up slightly to 1.7. LVEDP 26 on at time of cath. IV lasix 40mg BID.
-continue BB. not presently on nae/arb/aldactone given chronic renal insufficiency, now in setting of recent cath. with significant skin issues, would not place on SGLT2 inhibitor.
-will need repeat echo as OP to reassess EF on medical therapy
-PT/OT evals. may need SNF
-d/w nursing
HPI:
Patient came to ER from the cardiology office yesterday with new atrial flutter but also complains of weight loss and dysphagia, she is now admitted with plan for GI workup and cardiology has been consulted for ongoing atrial flutter. Patient
was seen by Dr. Santos in the office 08/27/2023 and had complaints including severe weakness and poor p.o. intake. He was found to be in atrial flutter with 2-1 block at rest. She has no history of atrial arrhythmia. She was sent to ER
thinking that she would need workup for her abdominal pain and weight loss. The patient has been seen by gastroenterology and the plan is for an upper GI series in the morning. She also had an abdominal ultrasound performed earlier today. In the
meantime she has remained in atrial flutter and is on a Cardizem drip at 5 mg/hr with HRs in the 80s to 90s and she denies any palpitations. She says she has ongoing dyspnea on exertion. Her troponin was elevated initially at 0.152 and trended
down thereafter. She has a history of CAD with previous LAD PCI in 2004, RCA PCI in 2010 and obtuse marginal stent in 2017. Her last ischemic evaluation was May 2018 that showed a small partially reversible inferolateral defect that was
improved from previous stress test.
Progress Note - [employer] Electric Station Operator
Subjective
Date of Service: September 05, 2023
denies CP, SOB, R hand/wrist pain
Objective
Labs:
09/05/23 03:22
09/05/23 03:22
Labs
Hgb 10.7 g/dL (12.0-16.0) L 09/05/23 03:22
Hct 32.4 % (37.0-47.0) L 09/05/23 03:22
Plt Count 174 10^3/uL (130-400) 09/05/23 03:22
APTT 97.3 Sec (23.4-35.0) H 09/04/23 08:58
Sodium 137 mmol/L (135-145) 09/05/23 03:22
Potassium 4.2 mmol/L (3.5-5.1) 09/05/23 03:22
BUN 35 mg/dl (7-17) H 09/05/23 03:22
Creatinine 1.7 mg/dL (0.6-1.0) H 09/05/23 03:22
Glucose 120 mg/dl (70-99) H 09/05/23 03:22
Vital Signs and I&O:
Vital Signs
Temp Pulse Resp BP Pulse Ox
98.3 F 135 22 126/89 100
09/05/23 08:36 09/05/23 08:34 09/05/23 08:36 09/05/23 08:34 09/05/23 08:36
Vital Signs
Temp Pulse Resp BP Pulse Ox
98.3 F 135 22 126/89 100
09/05/23 08:36 09/05/23 08:34 09/05/23 08:36 09/05/23 08:34 09/05/23 08:36
Intake & Output
09/03/23 09/04/23 09/05/23 09/06/23
07:59 07:59 07:59 07:59
Intake Total 960 / 960 486.0 / 486.0
Output Total 400 / 400
Balance 960 / 960 86.0 / 86.0
Physical Exam
Physical Exam
GEN: No distress, awake, alert, oriented x3. on supp O2
HEENT: supple, anicteric, mmm, eomi
LUNGS: CTA B/L, no wheezes/rales
CV: Irreg irreg, S1/S2, no murmur
ABD: soft, BS+, NT/ND
EXT: No cyanosis, clubbing. Trace edema of B/L LE
NEURO: Gross non-focal
SKIN: Warm, pink, dry. No rash. Significant ecchymoses diffusely. Ecchymoses of R wrist extending to dorsal aspect of hand and fingers and up to ~ elbow. small firm area surrounding radial puncture site. hand warm, 2+ pulse.
[2023-09-05] MEDS: KCL 10 MEQ PO (12:56)
[2023-09-05] MEDS: PACERONE 400 MG PO ×2 (12:56→22:27)
[2023-09-05] MEDS: LASIX 40 MG IV (12:56)
[2023-09-05] MEDS: MIRALAX PO (12:57)
--- NOTE | 2023-09-05 14:00 | PTCARENOTE ---
Pt reports vomiting up pills taken shortly prior before nausea episode started. RN made Sonam Singh PA-C aware. Will continue to monitor.
--- NOTE | 2023-09-05 14:00 | PN.CDI ---
CDI
- -
CDI:
Physician Documentation Request
Admit Date: 08/27/23 18:59
Dear Doctor ,
Per ED record pt presented from cardiology office ' found to be tachycardic she was here for routine visit she has had fatigue shortness of breath difficulty with activities of daily living ....' Patient found to have new onset atrial fib/flutter.
Cardiology consult states 'Patient's son is concerned about ischemia and noted that patient has had increasing LOVELACE for weeks to months'
09/02 cardiology progress note states 'Troponin was 0.152 on admission and trended down thereafter. Likely nonischemic myocardial injury troponin elevation in the setting on rapid atrial flutter, but with dyspnea on exertion ischemia work up ongoing'
09/03 cardiac cath conclusion ' Long area of up to 70% stenosis in the mid LAD, partially in-stent restenosis, Eccentric 60 to 70% mid-OM 2 stenosis. 40-50% OM1 in-stent restenosis'
Patient returned to skilled laborer on for ' Successful percutaneous coronary artery intervention of 70% mid LAD (in setting of anterior ischemia on recent Lexiscan MIBI) with a 2.5 x 33 mm Xience mary point drug-eluting stent, successfully postdilated
with a 2.75 x 20 mm NC balloon at 18 jean-paul distally and a 3.0 x 15 mm NC balloon at 18 jean-paul proximally with an excellent angiographic result.'
hospitalist progress note states 'Non - GA troponin elevation '
After careful study, what is the etiology of the elevated troponin:
Non-Ischemic myocardial injury
Type II demand ischemia
NSTEMI
Other
Use of terms such as suspected, likely, concern for, or probable (associated with a specific diagnosis that is being evaluated, monitored, or treated as if it exists) are acceptable and can be coded in the inpatient setting, when documented at the
time of discharge.
Thank you,
Sierra Griffin RN, BSN
CDI Specialist
tiger text
Please use your independent medical judgment in providing your response.
--- NOTE | 2023-09-05 14:14 | CM ---
CM following for DC planning needs.
Met w/ patient, dtr. and DIL at bedside.
PT had just worked with pt. Recommendation at this time is for SNF v VN.
Discussed this with pt. and family. Patient would prefer to go home w/ VN and private duty aides (dtr. has listing of private duty agencies and pt. has intermodal customer service care insurance to access help, if needed) but would consider SNF if needed. We
discussed SNF options to include [facility], [facility]. Pt. and family would like to see how she does over the weekend and after Cardioversion before making decision on disposition.
CM offered emotional support and will cont. to follow.
Plan: SNF v. [facility].
--- NOTE | 2023-09-05 14:15 | W.PN.HOSP.TC ---
Today's Communication/Plan
-
see bold
Assessment / Plan
Assessment / Plan
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
last 15 minutes and then subsides.� reports intermittent nausea denies vomiting.� Reported weight loss 20 pounds in the past 6 months with associate appetite loss.�
#New onset atrial fibrillation with RVR
#Atrial flutter
Status post IV Cardizem drip and IV heparin drip, currently on metoprolol, Eliquis
Heart rate continues to be high with palpitations with activity
Started on amiodarone 09/04
Continue adjustments as per cardiology
#Coronary artery disease
S/p stress test 09/01 concerning for ischemia, cardiac catheterization on 09/03 shows 70% stenosis of the mid LAD, partially in-stent restenosis
S/p PCI , continue aspirin, Plavix, eliquis for 1 week, then just plavix and eliquis
Continue statin
Patient had arterial Dopplers today, follow-up
#Acute on Chronic HFpEF
#Acute Hypoxic Respiratory Failure requiring 5L
#New onset dyspnea overnight 08/29-08/30 with associate confusion possible Hospital associated delirium
Back on IV Lasix 40 mg twice daily
Trend weights, monitor creatinine
#CAMRON on CKD 3 likely prerenal/secondary to Lasix
Creatinine 2.6 upon admission, currently 1.7 today
Continue to monitor
#Abdominal pain/dysphagia to solids/weight loss suggestive of underlying GI pathology such as ulcer/esophagitis/GI malignancy
#hx of Hiatal hernia/GERD
Continue omeprazole, famotidine
GI consult appreciated , Abd US appreciated likely fatty liver disease
Upper GI series appreciated presbyesophagus, no further inpatient GI procedures planned
SPL recommends regular solids, thin liquids, esophageal precautions, meds as tolerated
#Obesity due to excess calories
Affects all aspects of care
Moderate Mitral Regurgitation�
Mild aortic stenosis
Interstitial lung disease on 2 L at bedtime
History of hemorrhoidal bleeding
Essential hypertension
-Continue metoprolol
Hyperlipidemia
-Continue Zetia
Hypothyroidism
-Continue levothyroxine
Polymyalgia rheumatica
-Continue prednisone
Fibromyalgia
-Continue Percocet
Psoriatic arthritis
Cervical radiculopathy
Spinal stenosis
Anxiety
-Continue venlafaxine
History of shingles
Former smoker
PT/OT
DVT prophylaxis - eliquis
Full Code
Updated daughters at bedside 09/04
Total time spent to see the patient on the floor, examine the patient, review data and lab results, discuss treatment plan with patient, nursing staff around 51 minutes.
Physical Exam
General: Obese, no acute distress
HEENT: Normocephalic, Atraumatic, EOMI, MMM
Respiratory: Bibasilar crackles
Cardiac: Normal S1/S2, tachycardic rate, irregularly irregular rhythm
GI: Soft, Nontender, Nondistended, Normal Bowel Sounds
Extremities: No Clubbing, Cyanosis
+ bilater lower extremity edema
Neuro: Nonfocal/Grossly Intact
Psych: Calm, Cooperative
Derm: Diffuse scattered ecchymosis, especially on the hands and forearms
Anticipated Discharge: 24 - 48 hours
Subjective/Interval History
-
Date of Service: September 05, 2023
Patient vomited after taking pills on an empty stomach. She continues to feel palpitations with activity. No chest pain.
Objective Data
-
Labs:
Laboratory Results
09/05/23
03:22
WBC 8.7
Hgb 10.7 L
Hct 32.4 L
Plt Count 174
Sodium 137
Potassium 4.2
Chloride 106
Carbon Dioxide 27
BUN 35 H
Creatinine 1.7 H
Glucose 120 H
Calcium 8.9
Vital Signs:
Vital Signs
Temp Pulse Resp BP Pulse Ox
98.3 F 135 22 126/89 100
09/05/23 08:36 09/05/23 08:34 09/05/23 08:36 09/05/23 08:34 09/05/23 08:36
I&O
09/04/23 09/05/23 09/06/23
06:59 06:59 06:59
Intake Total 486.0 / 486.0
Output Total 400 / 400
Balance 86.0 / 86.0
[2023-09-05] MEDS: ZETIA 10 MG PO (18:23)
[2023-09-05] MEDS: VITAMIN D3 (cholecalciferol) 25 MCG PO (18:23)
[2023-09-05] MEDS: DELTASONE 5 MG PO (18:23)
[2023-09-05] MEDS: THERAGRAN 1 TABLET PO (18:23)
[2023-09-05] MEDS: LIPITOR 40 MG PO (18:23)
[2023-09-05] MEDS: COMPAZINE 5 MG IV (19:35)
--- NOTE | 2023-09-05 20:49 | PTCARENOTE ---
Assumed care at 1915. Patient in the bathroom having soft light brown stools and vomiting small amounts of orange salvia into the trash can, just ate orange jello. Her nausea is resolved now and is brought on by her urgency to have a bowel movement.
Two episodes of loose stools today and one episode prior of vomiting. She seems to think that her nausea is related to medication. Son at bedside. Compazine given, and she is now sleeping soundly
[2023-09-05] MEDS: PEPCID 20 MG PO (22:28)
--- NOTE | 2023-09-05 23:04 | PTCARENOTE ---
Medications given with applesauce, no further episodes of vomiting or loose stools. Lights dimmed, call valdes in reach
[2023-09-06] VITALS (10 sets, daily range): BP systolic 67–124; BP diastolic 47–78; BMI 31.3
[2023-09-06 05:26] LABS: Hematocrit 32.9 % (37.0-47.0); Hemoglobin 10.9 g/dL (12.0-16.0); Mean Corp Hgb Conc. 33.1 g/dL (33.0-37.0); Mean Corpuscular Hgb 32.5 pg (27.0-31.0); Mean Corpuscular Volume 98.2 fL (81.0-99.0); Mean Platelet Volume 10.9 fL (7.4-10.4); Platelet Count 167 10^3/uL (130-400); Red Blood Cell Count 3.35 10^6/uL (4.20-5.40); Red Cell Dist. Width 14.1 % (11.5-14.5); White Blood Cell Count 7.4 10^3/uL (4.8-10.8)
[2023-09-06 05:50] LABS: ALT (SGPT) 40 U/L (0-35); AST (SGOT) 36 U/L (14-36); Alkaline Phosphatase 63 U/L (38-126); Blood Urea Nitrogen 38 mg/dl (7-17); Calcium 9.3 mg/dl (8.4-10.2); Carbon Dioxide 29 mmol/L (22-30); Chloride 102 mmol/L (98-107); Estimated Creatinine Clearance 19 ml/min; Glucose 99 mg/dl (70-99); Sodium 139 mmol/L (135-145); Total Bilirubin 1.2 mg/dl (0.2-1.3); Total Protein 5.8 g/dl (6.3-8.2); eGFR 23.73
[2023-09-06] MEDS: SYNTHROID 75 MCG PO (06:07)
--- NOTE | 2023-09-06 07:50 | W.PN.HOSP.TC ---
Today's Communication/Plan
-
see bold
Assessment / Plan
Assessment / Plan
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
last 15 minutes and then subsides.� reports intermittent nausea denies vomiting.� Reported weight loss 20 pounds in the past 6 months with associate appetite loss.�
#New onset atrial fibrillation with RVR
#Atrial flutter
Status post IV Cardizem drip and IV heparin drip, currently on metoprolol, Eliquis
Heart rate continues to be high with palpitations with activity
Started on amiodarone 09/04
Patient now having nausea and vomiting, unclear if this is related to amiodarone
Continue adjustments as per cardiology
#Non-ST elevation myocardial infarction
#Coronary artery disease
S/p stress test 09/01 concerning for ischemia, cardiac catheterization on 09/03 shows 70% stenosis of the mid LAD, partially in-stent restenosis
S/p PCI , continue aspirin, Plavix, eliquis for 1 week, then just plavix and eliquis
Continue statin
#Right wrist hematoma
Supportive care
#Acute on Chronic HFpEF
#Acute Hypoxic Respiratory Failure requiring 5L
#New onset dyspnea overnight 08/29-08/30 with associate confusion possible Hospital associated delirium
Creatinine up to 2.0 today, hold IV Lasix
Trend weights, monitor creatinine
#CAMRON on CKD 3 likely prerenal/secondary to Lasix
Creatinine 2.6 upon admission, currently 2.0 today, was 1.7
Continue to monitor
#Abdominal pain/dysphagia to solids/weight loss suggestive of underlying GI pathology such as ulcer/esophagitis/GI malignancy
#hx of Hiatal hernia/GERD
Continue omeprazole, famotidine
GI consult appreciated , Abd US appreciated likely fatty liver disease
Upper GI series appreciated presbyesophagus, no further inpatient GI procedures planned
SPL recommends regular solids, thin liquids, esophageal precautions, meds as tolerated
#Obesity due to excess calories
Affects all aspects of care
Moderate Mitral Regurgitation�
Mild aortic stenosis
Interstitial lung disease on 2 L at bedtime
History of hemorrhoidal bleeding
Essential hypertension
-Continue metoprolol
Hyperlipidemia
-Continue Zetia
Hypothyroidism
-Continue levothyroxine
Polymyalgia rheumatica
-Continue prednisone
Fibromyalgia
-Continue Percocet
Psoriatic arthritis
Cervical radiculopathy
Spinal stenosis
Anxiety
-Continue venlafaxine
History of shingles
Former smoker
PT/OT
DVT prophylaxis - eliquis
Full Code
Updated daughters at bedside 09/04
Physical Exam
General: Obese, no acute distress
HEENT: Normocephalic, Atraumatic, EOMI, MMM
Respiratory: Bibasilar crackles
Cardiac: Normal S1/S2, tachycardic rate, irregularly irregular rhythm
GI: Soft, Nontender, Nondistended, Normal Bowel Sounds
Extremities: No Clubbing, Cyanosis
+ bilater lower extremity edema
Neuro: Nonfocal/Grossly Intact
Psych: Calm, Cooperative
Derm: Diffuse scattered ecchymosis, especially on the hands and forearms
Anticipated Discharge: > 48 hours
Subjective/Interval History
-
Date of Service: September 06, 2023
Patient continues to have dyspnea with activity, palpitations, improved from yesterday. No chest pain. Still having some nausea and vomiting.
Objective Data
-
Labs:
Laboratory Results
09/06/23
04:31
WBC 7.4
Hgb 10.9 L
Hct 32.9 L
Plt Count 167
Sodium 139
Potassium 4.0
Chloride 102
Carbon Dioxide 29
BUN 38 H
Creatinine 2.0 H
Glucose 99
Calcium 9.3
Total Bilirubin 1.2
AST 36
ALT 40 H
Alkaline Phosphatase 63
Vital Signs:
Vital Signs
Temp Pulse Resp BP Pulse Ox
97.8 F 89 18 113/56 92
09/06/23 07:14 09/06/23 07:10 09/06/23 07:14 09/06/23 07:10 09/06/23 07:14
I&O
09/05/23 09/06/23 09/07/23
06:59 06:59 06:59
Intake Total 100 / 100
Output Total 500 / 500
Balance -400 / -400
[2023-09-06] MEDS: XOPENEX 0.63 MG INHALANT SOLUTION 0.630000000000000004 MG INH ×3 (08:49→19:24)
--- NOTE | 2023-09-06 09:04 | PTCARENOTE ---
Rec'd pt from prev nsg shift AAOx3 w/no c/o CP, but pt does c/o SOB & anxiety. Pt pursed lip breathing at rest in bed w/RA O2 sats 92-93%. Had pt slow her breathing & take some deep breaths. Pt's breathing improved & pt no c/o SOB. Pt now c/o of
chronic N&V x 3 months. This RN discussed sm meal options that may help w/pt's nausea. Pt not willing to try at this time, states 'nothing stays down'. Pt's VS stable w/BP at 113/56, HR in the 90's at rest. Pt continues to be in Afib on telemetry
monitoring. Pt w/call valdes within reach & no addtl needs at this time.
[2023-09-06] MEDS: MIRALAX PO (09:11)
[2023-09-06] MEDS: LOW STRENGTH ASPIRIN 81 MG PO (10:40)
[2023-09-06] MEDS: PLAVIX 75 MG PO (10:40)
[2023-09-06] MEDS: PACERONE 400 MG PO ×2 (10:40→19:57)
[2023-09-06] MEDS: TOPROL XL 75 MG PO ×2 (10:40→19:58)
[2023-09-06] MEDS: PROTONIX 40 MG PO (10:40)
[2023-09-06] MEDS: LASIX 40 MG IV (10:41)
[2023-09-06] MEDS: EFFEXOR XR 75 MG PO (10:41)
[2023-09-06] MEDS: KCL 10 MEQ PO (10:41)
[2023-09-06] MEDS: ELIQUIS 2.5 MG PO ×2 (10:41→19:57)
[2023-09-06] MEDS: FLUSH (NSS) 2 FLUSH IV (10:42)
--- NOTE | 2023-09-06 12:14 | PTCARENOTE ---
Pt w/episode of N&V x 2 approx 1 hr post AM medication administration. No pills visible in pt's vomitus. Pt declined this RN contacting MD for something for her nausea. Pt's assisted back to chair w/feet elevated & gingerale provided. Plan of care
ongoing.
--- NOTE | 2023-09-06 18:10 | W.PN.CARDCBS ---
Today's Communication / Plan
-
JIAN cardioversion planned Friday
Continue goal-directed medical therapy optimization as able
Hold further Lasix and monitor renal function
Impression / Plan
-
.
PCP: Wilbert Figueroa
Featherer: Dr. Santos
Impression:
Weight loss and dysphagia on admission 08/27/23
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
Newly diagnosed atrial flutter with RVR 08/27/23
Dyspnea on exertion
CAMRON
Elevated Troponin
CAD
s/p OM stent 10/08/17 with residual 40% stenosis of mid LAD and 50-60% stenosis of prox PDA
PCI RCA 07/2010 ([facility])
PCI LAD 2004 ([facility])
Chronic HFpEF
HTN
Hypertension
Mild peak/mean 22/13 mmHg and TAM 1.4 cm sq
HTN
Psoriatic arthritis
Polymyalgia rheumatica
Hyperlipidemia
Hx interstitial lung disease on chronic oxygen at night
Hypothyroidism
Anxiety
Fibromyalgia
Chronic dyspnea
Hx cervical radiculopathy
Statin intolerance
Hx left rotator cuff tear
Urethral stone w/ hydronephrosis 01/2018
Shingles 09/2022
Syncope 09/2022 in setting of GI illness/dehydration
Chronic pain syndrome on oxycodone daily
Echo 01/06/18:�Mild LVH, EF 50-55% possible lateral hypokinesis, normal RV, severely dilated LA, Mild to moderate MR, Mild aortic stenosis, peak/mean gradient 29/16, aortic valve area 1.6 cm�, Mild TR, pulmonary pressure 51-56 mmHg
Echo October 2018: Ejection fraction 60-65 percent, mild MR, mild , mild-moderate AI�������
Echo 07/2020: EF 60-65%, mild with MPG 14 mm Hg, TAM 1.7 cm2.
Echo 03/04/23:�EF 55-60% with mild MR, mild , aortic root 4 cm, trace pericardial effusion
Echo 06/04/23: EF 55 to 60%, mild concentric LVH, mild mitral stenosis with mean transmitral gradient 6 mmHg, moderate MR, mild peak/mean gradient 22/13 mmHg and TAM 1.4 cm sq, trace TR with pulmonary artery systolic pressure 26 mmHg mildly
dilated aortic root
Echo 08/29/2023: EF 40-45%, pleural effusion
Plan:
Ms Larry is a 88-year-old female with past medical history of polymyalgia rheumatica on chronic steroids, hyperlipidemia with reported statin intolerance, coronary artery disease with prior stenting of the LAD, most recently and distal RCA, most
recently to OM1 who presented this admission with ongoing dyspnea on exertion found to have new atrial flutter, mild troponin elevation as well as new mild left ventricular dysfunction, LVEF of 40 to 45% with a subsequent Lexiscan MIBI with evidence
of possible anterior and basilar to mid lateral ischemia with fixed apical defect. Prone images were not able to be done.��
-Left heart catheterization September 03, 2023 noting long area up to 70% stenosis in mid LAD with partial in-stent restenosis, eccentric 60 to 70% mid OM2 stenosis and 40 to 50% OM1 in-stent restenosis. The distal RCA stent patent with a 50 to 60%
stenosis in the proximal RPDA beyond the stented segment.
-Staged revascularization September 04, 2023 with successful percutaneous coronary artery intervention of 70% mid LAD (in setting of anterior ischemia on recent Lexiscan MIBI) with a 2.5 x 33 mm Xience mary point drug-eluting stent, successfully
postdilated with a 2.75 x 20 mm NC balloon at 18 jean-paul distally and a 3.0 x 15 mm NC balloon at 18 jean-paul proximally with an excellent angiographic result. The proximal OM was IFR negative.
-R radial site with significant bruising to R hand and forearm. A limited duplex of the right upper extremity 09/05/23 reveals multiphasic waveforms in the right radial and ulnar arteries. A hematoma is identified measuring 1.7 cm x 0.6 cm x 1 cm.
-Continue goal-directed medical therapy. Patient will be on triple therapy for 1 week followed by Plavix and Eliquis thereafter
Acute on chronic renal insufficiency following IV dye exposure and diuresis
-Hold further IV Lasix
-Monitor renal function
New ischemic cardiomyopathy in the setting of rapid atrial fibrillation and multivessel coronary artery disease
-Goal-directed medical therapy as able
-Given acute renal sufficiency contraindication to MARIANO/ARB, ARNi, or Aldactone
-Plan for rhythm control with new amiodarone and JIAN cardioversion attempt Friday
-Outpatient repeat echocardiogram in 3 months
-Atrial fibrillation/flutter
-New amiodarone 400 mg twice daily. Twelve-lead EKG with stable QT interval
-Continue toprol 75mg BID. .
-eliquis resumed post cath 2.5 mg BID
-tentatively planned for JIAN/CV on Friday09/08/23 if does not convert. Prior GI workup reviewed with Dr. Villeda- no contraindication to JIAN from their standpoint.
Discussed with family at bedside
HPI:
Patient came to ER from the cardiology office yesterday with new atrial flutter but also complains of weight loss and dysphagia, she is now admitted with plan for GI workup and cardiology has been consulted for ongoing atrial flutter. Patient
was seen by Dr. Santos in the office 08/27/2023 and had complaints including severe weakness and poor p.o. intake. He was found to be in atrial flutter with 2-1 block at rest. She has no history of atrial arrhythmia. She was sent to ER
thinking that she would need workup for her abdominal pain and weight loss. The patient has been seen by gastroenterology and the plan is for an upper GI series in the morning. She also had an abdominal ultrasound performed earlier today. In the
meantime she has remained in atrial flutter and is on a Cardizem drip at 5 mg/hr with HRs in the 80s to 90s and she denies any palpitations. She says she has ongoing dyspnea on exertion. Her troponin was elevated initially at 0.152 and trended
down thereafter. She has a history of CAD with previous LAD PCI in 2005, RCA PCI in 2010 and obtuse marginal stent in 2018. Her last ischemic evaluation was May 2018 that showed a small partially reversible inferolateral defect that was
improved from previous stress test.
Progress Note - Featherer
Subjective
Date of Service: September 06, 2023
Seen and examined. No new complaints.
Objective
Labs:
09/06/23 04:31
09/06/23 04:31
Labs
Hgb 10.9 g/dL (12.0-16.0) L 09/06/23 04:31
Hct 32.9 % (37.0-47.0) L 09/06/23 04:31
Plt Count 167 10^3/uL (130-400) 09/06/23 04:31
APTT 97.3 Sec (23.4-35.0) H 09/04/23 08:58
Sodium 139 mmol/L (135-145) 09/06/23 04:31
Potassium 4.0 mmol/L (3.5-5.1) 09/06/23 04:31
BUN 38 mg/dl (7-17) H 09/06/23 04:31
Creatinine 2.0 mg/dL (0.6-1.0) H 09/06/23 04:31
Glucose 99 mg/dl (70-99) 09/06/23 04:31
Vital Signs and I&O:
Vital Signs
Temp Pulse Resp BP Pulse Ox
97.4 F 101 18 113/78 96
09/06/23 15:30 09/06/23 16:00 09/06/23 15:30 09/06/23 15:27 09/06/23 15:30
Vital Signs
Temp Pulse Resp BP Pulse Ox
97.4 F 101 18 113/78 96
09/06/23 15:30 09/06/23 16:00 09/06/23 15:30 09/06/23 15:27 09/06/23 15:30
Intake & Output
02/2909/05/23 09/06/23 09/07/23
06:59 06:59 06:59 06:59
Intake Total 486.0 / 486.0 100 / 100 720 / 720
Output Total 400 / 400 500 / 500
Balance 86.0 / 86.0 -400 / -400 720 / 720
Physical Exam
Physical Exam
GEN: No distress, awake, alert, oriented x3. on supp O2
HEENT: supple, anicteric, mmm, eomi
LUNGS: CTA B/L, no wheezes/rales
CV: Irreg irreg, S1/S2, no murmur
ABD: soft, BS+, NT/ND
EXT: No cyanosis, clubbing. Trace edema of B/L LE
NEURO: Gross non-focal
SKIN: Warm, pink, dry. No rash. Significant ecchymoses diffusely. Ecchymoses of R wrist extending to dorsal aspect of hand and fingers and up to ~ elbow. small firm area surrounding radial puncture site. hand warm, 2+ pulse.
[2023-09-06] MEDS: ZETIA 10 MG PO (18:15)
[2023-09-06] MEDS: VITAMIN D3 (cholecalciferol) 25 MCG PO (18:15)
[2023-09-06] MEDS: LIPITOR 40 MG PO (18:16)
[2023-09-06] MEDS: THERAGRAN 1 TABLET PO (18:16)
[2023-09-06] MEDS: DELTASONE 5 MG PO (18:16)
[2023-09-06] MEDS: PEPCID 20 MG PO (19:57)
--- NOTE | 2023-09-06 20:04 | W.PN.UPDATE ---
Update Note
Progress Note Update
Asked to comment by Dr Pineda on any esophageal contraindication to JIAN.
Pt with normal esophagus and small hiatal hernia by egd in 01/26
Presbyesophagus by UGI which just means the contractions are weaker but does not imply any obstruction.
In the absence of any new dysphagia (which there does not appear to be as per our recent consult, there is no GI contraindication to performing JIAN
[2023-09-07] VITALS (7 sets, daily range): BP systolic 105–143; BP diastolic 54–109; PULSE 98; O2SAT 94; BMI 31.6
--- NOTE | 2023-09-07 01:42 | PTCARENOTE ---
Patient assisted the bathroom overnight using rolling walker, gait steady. Shortness of breath with exertion, resolves with rest, orthopneic, HOB elevated. Crackles left base, POX 92-94% on room air. Lights dimmed, watching TV, having trouble
falling asleep, call valdes in reach
[2023-09-07 05:30] LABS: Hematocrit 31.6 % (37.0-47.0); Hemoglobin 10.5 g/dL (12.0-16.0); Mean Corp Hgb Conc. 33.2 g/dL (33.0-37.0); Mean Corpuscular Hgb 31.8 pg (27.0-31.0); Mean Corpuscular Volume 95.8 fL (81.0-99.0); Mean Platelet Volume 10.6 fL (7.4-10.4); Platelet Count 188 10^3/uL (130-400); Red Cell Dist. Width 14.1 % (11.5-14.5); White Blood Cell Count 8.2 10^3/uL (4.8-10.8)
[2023-09-07 05:52] LABS: Blood Urea Nitrogen 43 mg/dl (7-17); Carbon Dioxide 26 mmol/L (22-30); Chloride 103 mmol/L (98-107); Estimated Creatinine Clearance 17 ml/min; Glucose 134 mg/dl (70-99); Potassium 3.9 mmol/L (3.5-5.1); Sodium 138 mmol/L (135-145); eGFR 21.17
[2023-09-07] MEDS: SYNTHROID 75 MCG PO (06:35)
[2023-09-07] MEDS: XOPENEX 0.63 MG INHALANT SOLUTION 0.630000000000000004 MG INH ×3 (07:55→20:45)
--- NOTE | 2023-09-07 09:52 | W.PN.HOSP.TC ---
Today's Communication/Plan
-
see bold
Assessment / Plan
Assessment / Plan
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
last 15 minutes and then subsides.� reports intermittent nausea denies vomiting.� Reported weight loss 20 pounds in the past 6 months with associate appetite loss.�
#New onset atrial fibrillation with RVR
#Atrial flutter
Status post IV Cardizem drip and IV heparin drip, currently on metoprolol, Eliquis
Heart rate continues to be high with palpitations with activity
Heart rate improved since being started on amiodarone 09/04
Cardiology plans for JIAN cardioversion on Friday
#Non-ST elevation myocardial infarction
#Coronary artery disease
S/p stress test 09/01 concerning for ischemia, cardiac catheterization on 09/03 shows 70% stenosis of the mid LAD, partially in-stent restenosis
S/p PCI , continue aspirin, Plavix, eliquis for 1 week, then just plavix and eliquis
Continue statin
#Right wrist hematoma
Supportive care
#Acute on Chronic HFpEF
#Acute Hypoxic Respiratory Failure requiring 5L
#New onset dyspnea overnight 08/29-08/30 with associate confusion possible Hospital associated delirium
Creatinine up to 2.2, was 2.0 today, was 2.7 hold IV Lasix
Patient did receive diet during her cardiac cath on 09/03, and PCI in
Trend weights, monitor creatinine
#CAMRON on CKD 3 likely prerenal/secondary to Lasix
Creatinine 2.6 upon admission, currently 2.2 today, was 2.0, was 1.7
IV lasix held again since 09/05
Consult nephrology,continue to monitor
#Acute blood loss anemia
Secondary to blood draws, ecchymosis, right radial wrist hematoma
Hemoglobin 10.5 today, was 10.9, slowly trending down from 13.2 upon admission
Continue to monitor
#Presbyesophagus/esophageal dysmotility
#Abdominal pain/dysphagia to solids/weight loss
#Hx of Hiatal hernia/GERD
Continue omeprazole, famotidine
GI consult appreciated , Abd US appreciated likely fatty liver disease
Upper GI series appreciated presbyesophagus, no further inpatient GI procedures planned
SPL recommends regular solids, thin liquids, esophageal precautions, meds as tolerated
#Obesity due to excess calories
Affects all aspects of care
Moderate Mitral Regurgitation�
Mild aortic stenosis
Interstitial lung disease on 2 L at bedtime
History of hemorrhoidal bleeding
Essential hypertension
-Continue metoprolol
Hyperlipidemia
-Continue Zetia
Hypothyroidism
-Continue levothyroxine
Polymyalgia rheumatica
-Continue prednisone
Fibromyalgia
-Continue Percocet
Psoriatic arthritis
Cervical radiculopathy
Spinal stenosis
Anxiety
-Continue venlafaxine
History of shingles
Former smoker
PT/OT
DVT prophylaxis - eliquis
Full Code
Updated daughters at bedside 09/04
Physical Exam
General: Obese, no acute distress
HEENT: Normocephalic, Atraumatic, EOMI, MMM
Respiratory: Bibasilar crackles
Cardiac: Normal S1/S2, tachycardic rate, irregularly irregular rhythm
GI: Soft, Nontender, Nondistended, Normal Bowel Sounds
Extremities: No Clubbing, Cyanosis
+ bilater lower extremity edema
Neuro: Nonfocal/Grossly Intact
Psych: Calm, Cooperative
Derm: Diffuse scattered ecchymosis, especially on the hands and forearms
Anticipated Discharge: > 48 hours
Subjective/Interval History
-
Date of Service: September 07, 2023
Patient continues to have palpitations and dyspnea with exertion. Nausea and vomiting resolved.
Objective Data
-
Labs:
Laboratory Results
09/07/23
04:56
WBC 8.2
Hgb 10.5 L
Hct 31.6 L
Plt Count 188
Sodium 138
Potassium 3.9
Chloride 103
Carbon Dioxide 26
BUN 43 H
Creatinine 2.2 H
Glucose 134 H
Calcium 9.0
Vital Signs:
Vital Signs
Temp Pulse Resp BP Pulse Ox
98.7 F 120 20 124/79 95
09/07/23 08:07 09/07/23 08:12 09/07/23 08:07 09/07/23 08:12 09/07/23 08:07
I&O
09/06/23 09/07/23 09/08/23
06:59 06:59 06:59
Intake Total 100 / 100 720 / 720
Output Total 500 / 500
Balance -400 / -400 720 / 720
[2023-09-07] MEDS: PROTONIX 40 MG PO (10:29)
[2023-09-07] MEDS: EFFEXOR XR 75 MG PO (10:29)
[2023-09-07] MEDS: LOW STRENGTH ASPIRIN 81 MG PO (10:29)
[2023-09-07] MEDS: TOPROL XL 75 MG PO ×2 (10:30→21:02)
[2023-09-07] MEDS: ELIQUIS 2.5 MG PO ×2 (10:32→21:03)
[2023-09-07] MEDS: KCL PO (10:32)
[2023-09-07] MEDS: PACERONE 400 MG PO ×2 (10:33→21:02)
[2023-09-07] MEDS: MIRALAX PO (10:33)
[2023-09-07] MEDS: PLAVIX 75 MG PO (10:33)
--- NOTE | 2023-09-07 12:45 | PTCARENOTE ---
Pt w/no nausea or vomiting this AM, but did report 'some abdominal pain & cramping' about 30 mins after taking her medications. Pt resting comfortably in bed at this time w/VS stable. Pt also tearful this morning stating she 'feels depressed about
being in the hospital for 4 weeks'. This RN provided emotional support & reoriented pt to time & that she was admitted 08/27 and it has only been 11 days not 4 weeks as she had stated. Pt somewhat confused & a calendar was shown to pt to see clearly
how many days she has been hospitalized. Pt called her family members to confirm what she has been told by this RN. Pt w/callbell within reach & no addtl needs at this time. Plan of care ongoing.
--- NOTE | 2023-09-07 16:58 | W.CON.NEPH ---
Consultation
-
Date/Time Consultation Requested: 09/07/2023 3 PM
Date/Time Consultation Performed: 09/07/2023 5 PM
Requesting Provider: Dr. Acevedo
Performing Provider: Dr. Porter
Reason for Consultation: Acute kidney injury
Medical History
-
Chief Complaint: Acute kidney injury
History of Present Illness:
This is an 88-year-old female with chronic kidney disease stage IIIb followed by Dr. Anders in our office. Her baseline creatinine is 1.6. She has interstitial lung disease on chronic steroid therapy. She also has heart failure with preserved
ejection fraction on chronic diuretic therapy. She presented from the cardiology office with atrial fibrillation. She had acute kidney injury at the time of admission which had improved somewhat. She then underwent cardiac catheterization back to
back on 08/26/2023 and 09/04/2023 and her creatinine began to rise once more now up to 2.2 for which we are asked to assist with management. She is due for cardioversion tomorrow
Past Medical History
Interstitial lung disease, hypothyroidism, fibromyalgia, coronary disease with stenting, polymyalgia rheumatica, osteoporosis, psoriasis, hyperlipidemia, GERD, duodenal ulcer, cholecystectomy, CKD 3B
Social History
Tobacco: Former Smoker
Alcohol: None
Family History
Heart disease
Allergies / Home Medications
Allergy/AdvReac Type Severity Reaction Status Date / Time
hydroxychloroquine sulfate Allergy Rash Verified 08/27/23 14:35
[From Plaquenil]
Penicillins Allergy Itching Verified 08/27/23 14:35
Medication Instructions Recorded Confirmed Type
venlafaxine 75 mg capsule,extended 75 mg PO DAILY Depression 12/09/17 08/27/23 History
release 24 hr
prednisone 5 mg tablet 5 mg PO QPM INFLAMMATION 01/05/18 08/27/23 History
aspirin 81 mg tablet,delayed 81 mg PO HS Blood clot 08/11/18 08/27/23 History
release prevention/tx
cholecalciferol (vitamin D3) 25 1,000 units PO QPM Supplement 08/11/18 08/27/23 History
mcg (1,000 unit) tablet
ezetimibe 10 mg tablet 10 mg PO QPM High cholesterol 08/11/18 08/27/23 History
omeprazole 40 mg capsule,delayed 40 mg PO DAILY Gastrointestinal 09/09/22 08/27/23 History
release issue
famotidine 20 mg tablet 20 mg PO HS Gastrointestinal Issue 03/03/23 08/27/23 History
Simponi ARIA 1 dose IV Q8W psoriatic arthritis 06/03/23 08/27/23 History
therapeutic multivitamin 1 tab PO QPM Supplement 06/03/23 08/27/23 History
levothyroxine 75 mcg tablet 75 mcg PO DAILY AT 0700 30 days 06/06/23 08/27/23 Rx
#30 tabs
furosemide 40 mg tablet 40 mg PO DAILY Fluid 08/27/23 08/27/23 History
retention/Swelling
metoprolol succinate 50 mg 50 mg PO BID Blood Pressure 08/27/23 08/27/23 History
tablet,extended release 24 hr
oxycodone-acetaminophen 10 mg-325 1 tab PO BID PRN severe pain 08/27/23 08/27/23 History
mg tablet
Review of Systems
-
Dyspnea on exertion. No chest pain the remainder of the complete review of systems was negative
Physical Exam
Vital Signs
Vital Signs
Temp Pulse Resp BP Pulse Ox
99.1 F 107 20 119/85 94
09/07/23 15:21 09/07/23 13:49 09/07/23 15:21 09/07/23 10:31 09/07/23 15:21
Lab Results
WBC 8.2 10^3/uL (4.8-10.8) 09/07/23 04:56
RBC 3.30 10^6/uL (4.20-5.40) L 09/07/23 04:56
Hgb 10.5 g/dL (12.0-16.0) L 09/07/23 04:56
Hct 31.6 % (37.0-47.0) L 09/07/23 04:56
Plt Count 188 10^3/uL (130-400) 09/07/23 04:56
Sodium 138 mmol/L (135-145) 09/07/23 04:56
Potassium 3.9 mmol/L (3.5-5.1) 09/07/23 04:56
Chloride 103 mmol/L (98-107) 09/07/23 04:56
Carbon Dioxide 26 mmol/L (22-30) 09/07/23 04:56
BUN 43 mg/dl (7-17) H 09/07/23 04:56
Creatinine 2.2 mg/dL (0.6-1.0) H 09/07/23 04:56
eGFR 21.17 09/07/23 04:56
Glucose 134 mg/dl (70-99) H 09/07/23 04:56
Calcium 9.0 mg/dl (8.4-10.2) 09/07/23 04:56
Phosphorus 4.6 mg/dl (2.5-4.5) H 09/03/23 03:26
Jbj-I-Fueivcgcway Pept 7570 pg/ml 08/30/23 06:19
Albumin 3.0 g/dl (3.5-5.0) L 09/06/23 04:31
Physical Exam
General: AOx3
HEENT: PERRL, EOMI, Ear/Nose Intact, Hearing Normal, Oropharynx Clear/Moist, Neck Supple, Trachea Midline and No Thyromegaly
Respiratory: Crackels
Cardiac: Regular Rate/Rhythm
Abdomen: Soft, Nontender, Nondistended, Normal Bowel Sounds and No Hepatosplenomegaly
Musculoskeletal: Edema
Skin: No Rash and Normal Turgor
Psych: Mood/afflect pleasant and Insight/judgement good
Assessment/Plan
-
Assessment
CKD 3B,1.6
Acute kidney injury
Atrial fibrillation a flutter
Heart failure preserved ejection fraction
Polymyalgia rheumatica
Coronary artery disease with recent LAD PCI
Interstitial lung disease
Plan
Holding Lasix for now. She is not in respiratory distress or does not appear to be volume overloaded
for cardioversion tomorrow.
Lasix may be restarted if creatinine plateaus or improves
Follow BMP
Discussed with patient and family.
Data Reviewed
-
Radiology: Image Personally Visualized and interpreted (Chest x-ray on 09/01/2023 by my reading shows cardiomegaly with left effusion)
Medical Tests (Nuc Med, Echo etc): Image Personally Visualized and interpreted (EKG on 09/06/2023 by my reading shows atrial flutter nonspecific T wave abnormalities) and Report Reviewed by me (Cardiac catheterization reports from 09/03 and
reviewed)
Labs: Labs Reviewed by me
Old Records: Reviewed (Creatinine on 06/06/2023 1.5)
[2023-09-07] MEDS: LIPITOR 40 MG PO (18:16)
[2023-09-07] MEDS: VITAMIN D3 (cholecalciferol) 25 MCG PO (18:16)
[2023-09-07] MEDS: DELTASONE 5 MG PO (18:16)
[2023-09-07] MEDS: ZETIA 10 MG PO (18:16)
[2023-09-07] MEDS: THERAGRAN 1 TABLET PO (18:16)
[2023-09-07] MEDS: BENADRYL 25 MG PO (21:02)
[2023-09-07] MEDS: PEPCID 20 MG PO (21:03)
[2023-09-07] MEDS: MELATONIN 5 MG PO (21:03)
--- NOTE | 2023-09-07 21:42 | W.PN.CARDCBS ---
Today's Communication / Plan
-
Hold Lasix and monitor renal function
Plan for JIAN/cardioversion 09/08/2023
Impression / Plan
-
PCP: Wilbert Figueroa
Wood Handler: Dr. Santos
Impression:
Weight loss and dysphagia on admission 08/27/23
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
Newly diagnosed atrial flutter with RVR 08/27/23
Dyspnea on exertion
CAMRON
Elevated Troponin
CAD
s/p OM stent 10/08/17 with residual 40% stenosis of mid LAD and 50-60% stenosis of prox PDA
PCI RCA 07/2010 ([facility])
PCI LAD 2004 ([facility])
Chronic HFpEF
HTN
Hypertension
Mild peak/mean 22/13 mmHg and TAM 1.4 cm sq
HTN
Psoriatic arthritis
Polymyalgia rheumatica
Hyperlipidemia
Hx interstitial lung disease on chronic oxygen at night
Hypothyroidism
Anxiety
Fibromyalgia
Chronic dyspnea
Hx cervical radiculopathy
Statin intolerance
Hx left rotator cuff tear
Urethral stone w/ hydronephrosis 01/2018
Shingles 09/2022
Syncope 09/2022 in setting of GI illness/dehydration
Chronic pain syndrome on oxycodone daily
Echo 01/06/18:�Mild LVH, EF 50-55% possible lateral hypokinesis, normal RV, severely dilated LA, Mild to moderate MR, Mild aortic stenosis, peak/mean gradient 29/16, aortic valve area 1.6 cm�, Mild TR, pulmonary pressure 51-56 mmHg
Echo October 2018: Ejection fraction 60-65 percent, mild MR, mild , mild-moderate AI�������
Echo 07/2020: EF 60-65%, mild with MPG 14 mm Hg, TAM 1.7 cm2.
Echo 03/04/23:�EF 55-60% with mild MR, mild , aortic root 4 cm, trace pericardial effusion
Echo 06/04/23: EF 55 to 60%, mild concentric LVH, mild mitral stenosis with mean transmitral gradient 6 mmHg, moderate MR, mild peak/mean gradient 22/13 mmHg and TAM 1.4 cm sq, trace TR with pulmonary artery systolic pressure 26 mmHg mildly
dilated aortic root
Echo 08/29/2023: EF 40-45%, pleural effusion
Plan:
Ms Larry is a 88-year-old female with past medical history of polymyalgia rheumatica on chronic steroids, hyperlipidemia with reported statin intolerance, coronary artery disease with prior stenting of the LAD, most recently and distal RCA, most
recently to OM1 who presented this admission with ongoing dyspnea on exertion found to have new atrial flutter, mild troponin elevation as well as new mild left ventricular dysfunction, LVEF of 40 to 45% with a subsequent Lexiscan MIBI with evidence
of possible anterior and basilar to mid lateral ischemia with fixed apical defect. Prone images were not able to be done.��
-Left heart catheterization September 03, 2023 noting long area up to 70% stenosis in mid LAD with partial in-stent restenosis, eccentric 60 to 70% mid OM2 stenosis and 40 to 50% OM1 in-stent restenosis. The distal RCA stent patent with a 50 to 60%
stenosis in the proximal RPDA beyond the stented segment.
-Staged revascularization September 04, 2023 with successful percutaneous coronary artery intervention of 70% mid LAD (in setting of anterior ischemia on recent Lexiscan MIBI) with a 2.5 x 33 mm Xience mary point drug-eluting stent, successfully
postdilated with a 2.75 x 20 mm NC balloon at 18 jean-paul distally and a 3.0 x 15 mm NC balloon at 18 jean-paul proximally with an excellent angiographic result. The proximal OM was IFR negative.
-R radial site with significant bruising to R hand and forearm. A limited duplex of the right upper extremity 09/05/23 reveals multiphasic waveforms in the right radial and ulnar arteries. A hematoma is identified measuring 1.7 cm x 0.6 cm x 1 cm.
-Continue goal-directed medical therapy. Patient will be on triple therapy for 1 week followed by Plavix and Eliquis thereafter
Acute on chronic renal insufficiency following IV dye exposure and diuresis
-IV Lasix stopped 09/06/2023 and will continue to hold
-Monitor renal function
-Nephrology input appreciated; resume oral Lasix when creatinine plateaus
New ischemic cardiomyopathy in the setting of rapid atrial fibrillation and multivessel coronary artery disease
-Goal-directed medical therapy as able
-Given acute renal sufficiency contraindication to MARIANO/ARB, ARNi, or Aldactone
-Lasix currently held for increasing creatinine however will need to be resumed soon as patient is starting to have swelling in her lower extremities
-Plan for rhythm control with new amiodarone and JIAN/ cardioversion attempt Friday
-Outpatient repeat echocardiogram in 3 months
-Atrial fibrillation/flutter
-New amiodarone 400 mg twice daily. Twelve-lead EKG with stable QT interval
-Repeat EKG tomorrow after cardioversion
-Continue toprol 75mg BID.
-eliquis resumed post cath 2.5 mg BID
-TSH 08/27/2023 elevated at 5.2, free T4 1.05-continue levothyroxine
- JIAN/CV on Friday09/08/23 if does not convert. Prior GI workup reviewed with Dr. Villeda- no contraindication to JIAN from their standpoint.
Polymyalgia rheumatica on chronic steroids
HPI:
Patient came to ER from the cardiology office yesterday with new atrial flutter but also complains of weight loss and dysphagia, she is now admitted with plan for GI workup and cardiology has been consulted for ongoing atrial flutter. Patient
was seen by Dr. Santos in the office 08/27/2023 and had complaints including severe weakness and poor p.o. intake. He was found to be in atrial flutter with 2-1 block at rest. She has no history of atrial arrhythmia. She was sent to ER
thinking that she would need workup for her abdominal pain and weight loss. The patient has been seen by gastroenterology and the plan is for an upper GI series in the morning. She also had an abdominal ultrasound performed earlier today. In the
meantime she has remained in atrial flutter and is on a Cardizem drip at 5 mg/hr with HRs in the 80s to 90s and she denies any palpitations. She says she has ongoing dyspnea on exertion. Her troponin was elevated initially at 0.152 and trended
down thereafter. She has a history of CAD with previous LAD PCI in 2004, RCA PCI in 2010 and obtuse marginal stent in 2017. Her last ischemic evaluation was May 2018 that showed a small partially reversible inferolateral defect that was
improved from previous stress test.
Progress Note - Wood Handler
Subjective
Date of Service: September 07, 2023
Seen and examined. Patient overall feels better although is noticing some swelling in her lower extremities. No shortness of breath. No palpitations
Objective
Labs:
09/07/23 04:56
09/07/23 04:56
Labs
Hgb 10.5 g/dL (12.0-16.0) L 09/07/23 04:56
Hct 31.6 % (37.0-47.0) L 09/07/23 04:56
Plt Count 188 10^3/uL (130-400) 09/07/23 04:56
APTT 97.3 Sec (23.4-35.0) H 09/04/23 08:58
Sodium 138 mmol/L (135-145) 09/07/23 04:56
Potassium 3.9 mmol/L (3.5-5.1) 09/07/23 04:56
BUN 43 mg/dl (7-17) H 09/07/23 04:56
Creatinine 2.2 mg/dL (0.6-1.0) H 09/07/23 04:56
Glucose 134 mg/dl (70-99) H 09/07/23 04:56
Vital Signs and I&O:
Vital Signs
Temp Pulse Resp BP Pulse Ox
99.1 F 96 18 124/73 94
09/07/23 15:21 09/07/23 20:48 09/07/23 20:48 09/07/23 15:00 09/07/23 15:21
Vital Signs
Temp Pulse Resp BP Pulse Ox
99.1 F 96 18 124/73 94
09/07/23 15:21 09/07/23 20:48 09/07/23 20:48 09/07/23 15:00 09/07/23 15:21
Intake & Output
09/05/23 09/06/23 09/07/23 09/08/23
06:59 06:59 06:59 06:59
Intake Total 100 / 100 720 / 720 960 / 960
Output Total 500 / 500
Balance -400 / -400 720 / 720 960 / 960
Physical Exam
Physical Exam
GEN: No distress, awake, alert, oriented x3. on supp O2
HEENT: supple, anicteric, mmm, eomi
LUNGS: CTA B/L, no wheezes/rales
CV: Irreg irreg, S1/S2, no murmur
ABD: soft, BS+, NT/ND
EXT: Trace edema of B/L LE.
[2023-09-08] VITALS (7 sets, daily range): BP systolic 117–134; BP diastolic 56–88; BMI 29.9
[2023-09-08 06:10] LABS: Hematocrit 33.1 % (37.0-47.0); Hemoglobin 10.8 g/dL (12.0-16.0); Mean Corp Hgb Conc. 32.6 g/dL (33.0-37.0); Mean Corpuscular Hgb 31.6 pg (27.0-31.0); Mean Corpuscular Volume 96.8 fL (81.0-99.0); Mean Platelet Volume 10.4 fL (7.4-10.4); Platelet Count 189 10^3/uL (130-400); Red Blood Cell Count 3.42 10^6/uL (4.20-5.40); Red Cell Dist. Width 14.3 % (11.5-14.5); White Blood Cell Count 8.1 10^3/uL (4.8-10.8)
[2023-09-08 06:18] LABS: Blood Urea Nitrogen 43 mg/dl (7-17); Calcium 9.3 mg/dl (8.4-10.2); Carbon Dioxide 30 mmol/L (22-30); Chloride 103 mmol/L (98-107); Estimated Creatinine Clearance 16 ml/min; Glucose 114 mg/dl (70-99); Magnesium 2.2 mg/dl (1.6-2.3); Potassium 4.1 mmol/L (3.5-5.1); Sodium 141 mmol/L (135-145); eGFR 19.07
--- NOTE | 2023-09-08 06:51 | W.PN.HOSP.TC ---
Today's Communication/Plan
-
Monitor renal function
continue triple therapy
cont hold diuresis
monitor respiratory status
low dose Trazodone bedtime Insomnia
Assessment / Plan
Assessment / Plan
Physical Exam
General: Obese, no acute distress
HEENT: Normocephalic, Atraumatic, EOMI, MMM
Respiratory: Bibasilar crackles
Cardiac: S1/S2 NSR
GI: Soft, Nontender, Nondistended, Normal Bowel Sounds
Extremities: No Clubbing, Cyanosis
+ bilater lower extremity edema
Neuro: Nonfocal/Grossly Intact
Psych: Calm, Cooperative
Derm: Diffuse scattered ecchymosis, especially on the hands and forearms
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
last 15 minutes and then subsides.� reports intermittent nausea denies vomiting.� Reported weight loss 20 pounds in the past 6 months with associate appetite loss.�
#New onset atrial fibrillation with RVR
#Atrial flutter
Status post IV Cardizem drip and IV heparin drip, currently on metoprolol, Eliquis
Heart rate continues to be high with palpitations with activity
Heart rate improved since amiodarone start 09/04
Cardiology eval appreciated s/p JIAN successful cardioversion 09/07
#Non-ST elevation myocardial infarction
#Coronary artery disease
S/p stress test 09/01 concerning for ischemia, cardiac catheterization 09/03 showed 70% stenosis of the mid LAD, partially in-stent restenosis
S/p PCI , continue aspirin, Plavix, Eliquis for 1 week, then Plavix and Eliquis, 09/09 last day of triple therapy
Continue statin
#Acute on Chronic HFpEF
#Acute Hypoxic Respiratory Failure requiring 5L
#New onset dyspnea overnight 08/29-08/30 with associate confusion possible Hospital associated delirium
since improved with Lasix diuresis
Creatinine however started rising again following contrast use, leading to hold on diuresis again
received contrast during her cardiac cath on 09/03, and PCI in
Trend weights, monitor creatinine
#CAMRON on CKD 3 likely prerenal/secondary to Lasix later worsened d/t contrast-induced nephropathy
Initial Creatinine 2.6 improved to 1.5 before worsening again d/t contrast
lasix on hold again since 09/05
Consult nephrology appreciated, cont hold diuresis till Cr plateaus/improves
#Acute blood loss anemia
#Right wrist hematoma
Supportive care
Secondary to blood draws, ecchymosis, right radial wrist hematoma
H&H remains relatively stable 10-11
will cont to monitor
#Presbyesophagus/esophageal dysmotility
#Abdominal pain/dysphagia to solids/weight loss
#Hx of Hiatal hernia/GERD
Continue omeprazole, famotidine
GI consult appreciated , Abd US appreciated likely fatty liver disease
Upper GI series appreciated presbyesophagus, no further inpatient GI procedures planned
SPL recommends regular solids, thin liquids, esophageal precautions, meds as tolerated
#Obesity due to excess calories
Affects all aspects of care
Moderate Mitral Regurgitation�
Mild aortic stenosis
Interstitial lung disease on 2 L at bedtime
History of hemorrhoidal bleeding
Essential hypertension
-Continue metoprolol
Hyperlipidemia
-Continue Zetia
Hypothyroidism
-Continue levothyroxine
Polymyalgia rheumatica
-Continue prednisone
Fibromyalgia
-Continue Percocet
Psoriatic arthritis
Cervical radiculopathy
Spinal stenosis
Anxiety
-Continue venlafaxine
insomnia
-started low dose Trazodone bedtime 09/07
History of shingles
Former smoker
PT/OT
DVT prophylaxis - Eliquis
Full Code
Discussed with patient, her daughter Rosario, and [id number] Selene
I spent a total of 57 minutes with the patient or on the floor. More than 50% of this time involved counseling and coordination of care.
Anticipated Discharge: 24 - 48 hours
Subjective/Interval History
-
Date of Service: September 08, 2023
Successfully cardioverted in AM. Patient reporting constipation. Denies shortness of breath chest pain palpitations. Daughter Rosario and [id number] Selene present during evaluation.
Objective Data
-
Labs:
Laboratory Results
09/08/23
05:31
WBC 8.1
Hgb 10.8 L
Hct 33.1 L
Plt Count 189
Sodium 141
Potassium 4.1
Chloride 103
Carbon Dioxide 30
BUN 43 H
Creatinine 2.4 H
Glucose 114 H
Calcium 9.3
Vital Signs:
Vital Signs
Temp Pulse Resp BP Pulse Ox
98.7 F 96 18 124/73 94
09/07/23 20:00 09/07/23 20:48 09/07/23 20:48 09/07/23 15:00 09/07/23 15:21
I&O
09/06/23 09/07/23 09/08/23
06:59 06:59 06:59
Intake Total 100 / 100 720 / 720 960 / 960
Output Total 500 / 500
Balance -400 / -400 720 / 720 960 / 960
[2023-09-08] MEDS: SYNTHROID PO (07:00)
[2023-09-08] MEDS: XOPENEX 0.63 MG INHALANT SOLUTION 0.630000000000000004 MG INH (07:20)
[2023-09-08] MEDS: ELIQUIS 2.5 MG PO ×2 (07:40→20:40)
[2023-09-08] MEDS: PROTONIX 40 MG PO (07:40)
--- NOTE | 2023-09-08 07:51 | PTCARENOTE ---
Pt sent to director of cardiac cath lab for JIAN/CV. VSS. NPO since MN.
[2023-09-08] MEDS: EFFEXOR XR PO (08:15)
--- NOTE | 2023-09-08 08:52 | W.PN.CARDCBS ---
Today's Communication / Plan
-
JIAN/cv today
Monitor cr and consider nephrology eval.
Continue triple therapy for one week post PCI
Impression / Plan
-
.
PCP: Wilbert Figueroa
Digital Technician: Dr. Santos
Impression:
Weight loss and dysphagia on admission 08/27/23
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
Newly diagnosed atrial flutter with RVR 08/27/23
Dyspnea on exertion
CAMRON
Elevated Troponin
CAD
s/p OM stent 10/08/17 with residual 40% stenosis of mid LAD and 50-60% stenosis of prox PDA
PCI RCA 07/2010 ([facility])
PCI LAD 2004 ([facility])
Chronic HFpEF
HTN
Hypertension
Mild peak/mean 22/13 mmHg and TAM 1.4 cm sq
HTN
Psoriatic arthritis
Polymyalgia rheumatica
Hyperlipidemia
Hx interstitial lung disease on chronic oxygen at night
Hypothyroidism
Anxiety
Fibromyalgia
Chronic dyspnea
Hx cervical radiculopathy
Statin intolerance
Hx left rotator cuff tear
Urethral stone w/ hydronephrosis 01/2018
Shingles 09/2022
Syncope 09/2022 in setting of GI illness/dehydration
Chronic pain syndrome on oxycodone daily
Echo 01/06/18:�Mild LVH, EF 50-55% possible lateral hypokinesis, normal RV, severely dilated LA, Mild to moderate MR, Mild aortic stenosis, peak/mean gradient 29/16, aortic valve area 1.6 cm�, Mild TR, pulmonary pressure 51-56 mmHg
Echo October 2018: Ejection fraction 60-65 percent, mild MR, mild , mild-moderate AI�������
Echo 07/2020: EF 60-65%, mild with MPG 14 mm Hg, TAM 1.7 cm2.
Echo 03/04/23:�EF 55-60% with mild MR, mild , aortic root 4 cm, trace pericardial effusion
Echo 06/04/23: EF 55 to 60%, mild concentric LVH, mild mitral stenosis with mean transmitral gradient 6 mmHg, moderate MR, mild peak/mean gradient 22/13 mmHg and TAM 1.4 cm sq, trace TR with pulmonary artery systolic pressure 26 mmHg mildly
dilated aortic root
Echo 08/29/2023: EF 40-45%, pleural effusion
Plan:
Ms Larry is a 88-year-old female with past medical history of polymyalgia rheumatica on chronic steroids, hyperlipidemia with reported statin intolerance, coronary artery disease with prior stenting of the LAD, most recently and distal RCA, most
recently to OM1 who presented this admission with ongoing dyspnea on exertion found to have new atrial flutter, mild troponin elevation as well as new mild left ventricular dysfunction, LVEF of 40 to 45% with a subsequent Lexiscan MIBI with evidence
of possible anterior and basilar to mid lateral ischemia with fixed apical defect. Prone images were not able to be done.��
-Left heart catheterization September 03, 2023 noting long area up to 70% stenosis in mid LAD with partial in-stent restenosis, eccentric 60 to 70% mid OM2 stenosis and 40 to 50% OM1 in-stent restenosis. The distal RCA stent patent with a 50 to 60%
stenosis in the proximal RPDA beyond the stented segment.
-Staged revascularization September 04, 2023 with successful percutaneous coronary artery intervention of 70% mid LAD (in setting of anterior ischemia on recent Lexiscan MIBI) with a 2.5 x 33 mm Xience mary point drug-eluting stent, successfully
postdilated with a 2.75 x 20 mm NC balloon at 18 jean-paul distally and a 3.0 x 15 mm NC balloon at 18 jean-paul proximally with an excellent angiographic result. The proximal OM was IFR negative.
-R radial site with significant bruising to R hand and forearm. A limited duplex of the right upper extremity 09/05/23 reveals multiphasic waveforms in the right radial and ulnar arteries. A hematoma is identified measuring 1.7 cm x 0.6 cm x 1 cm.
-Continue goal-directed medical therapy. Patient will be on triple therapy for 1 week followed by Plavix and Eliquis thereafter
Acute on chronic renal insufficiency following IV dye exposure and diuresis
-IV Lasix stopped 09/06/2023 and will continue to hold
-Monitor renal function
-Nephrology input appreciated; resume oral Lasix when creatinine plateaus. Cr continues to rise
New ischemic cardiomyopathy in the setting of rapid atrial fibrillation and multivessel coronary artery disease
-Goal-directed medical therapy as able
-Given acute renal sufficiency contraindication to MARIANO/ARB, ARNi, or Aldactone
-Lasix remains on hold for increasing creatinine however continue to monitor volume status as lasix will need to be resumed when able for diuresis. Consider nephrology eval.
-Successful JIAN/cv September 07.
-Outpatient repeat echocardiogram in 3 months
Atrial fibrillation/flutter
-New amiodarone 400 mg twice daily. Monitor QT interval
-Continue toprol 75mg BID.
-Continue, Eliquis resumed post cath 2.5 mg BID
-TSH 08/27/2023 elevated at 5.2, free T4 1.05, continue levothyroxine
Polymyalgia rheumatica on chronic steroids
HPI:
Patient came to ER from the cardiology office yesterday with new atrial flutter but also complains of weight loss and dysphagia, she is now admitted with plan for GI workup and cardiology has been consulted for ongoing atrial flutter. Patient
was seen by Dr. Santos in the office 08/27/2023 and had complaints including severe weakness and poor p.o. intake. He was found to be in atrial flutter with 2-1 block at rest. She has no history of atrial arrhythmia. She was sent to ER
thinking that she would need workup for her abdominal pain and weight loss. The patient has been seen by gastroenterology and the plan is for an upper GI series in the morning. She also had an abdominal ultrasound performed earlier today. In the
meantime she has remained in atrial flutter and is on a Cardizem drip at 5 mg/hr with HRs in the 80s to 90s and she denies any palpitations. She says she has ongoing dyspnea on exertion. Her troponin was elevated initially at 0.152 and trended
down thereafter. She has a history of CAD with previous LAD PCI in 2005, RCA PCI in 2010 and obtuse marginal stent in 2017. Her last ischemic evaluation was May 2018 that showed a small partially reversible inferolateral defect that was
improved from previous stress test.
Progress Note - Digital Technician
Subjective
Date of Service: September 08, 2023
Pt seen and examined. No complaints. No chest pain or shortness of breath.
Objective
Labs:
09/08/23 05:31
09/08/23 05:31
Labs
Hgb 10.8 g/dL (12.0-16.0) L 09/08/23 05:31
Hct 33.1 % (37.0-47.0) L 09/08/23 05:31
Plt Count 189 10^3/uL (130-400) 09/08/23 05:31
APTT 97.3 Sec (23.4-35.0) H 09/04/23 08:58
Sodium 141 mmol/L (135-145) 09/08/23 05:31
Potassium 4.1 mmol/L (3.5-5.1) 09/08/23 05:31
BUN 43 mg/dl (7-17) H 09/08/23 05:31
Creatinine 2.4 mg/dL (0.6-1.0) H 09/08/23 05:31
Glucose 114 mg/dl (70-99) H 09/08/23 05:31
Vital Signs and I&O:
Vital Signs
Temp Pulse Resp BP Pulse Ox
98.7 F 109 18 131/88 99
09/07/23 20:00 09/08/23 07:48 09/08/23 07:27 09/08/23 07:48 09/08/23 07:27
Vital Signs
Temp Pulse Resp BP Pulse Ox
98.7 F 109 18 131/88 99
09/07/23 20:00 09/08/23 07:48 09/08/23 07:27 09/08/23 07:48 09/08/23 07:27
Intake & Output
09/06/23 09/07/23 09/08/23 09/09/23
06:59 06:59 06:59 06:59
Intake Total 100 / 100 720 / 720 960 / 960
Output Total 500 / 500
Balance -400 / -400 720 / 720 960 / 960
Physical Exam
Physical Exam
General: No acute distress, AAOX3
Neck: Negative JVD
Heart: Irregularly irregular, Negative S3 positive S1/S2, Negative S4, No murmur
Lungs: CTA b/l, negative wheezes/rales/rhonchi
Abd: Positive BS, NT/ND, neg rebound/rigidity/guarding
Ext: Negative cyanosis/clubbing/edema
Neuro: nonfocal
--- NOTE | 2023-09-08 08:57 | ITS.CL.CARDI ---
Toe Laster - Cardioversion
Cardioversion
Procedure Report:
Date of Procedure: September 08 2023
Procedure: Cardioversion
Indication: Symptomatic atrial flutter
Performing Physician: Isidro Valdes DO, FACC
Technique: The patient was brought to the holding area. Signed informed consent was obtained. A time out was called and performed. The patient was anesthetized by the anesthesia service. Anticoagulation status was reviewed and appropriate. R2 pads
were placed anteriorly and posteriorly. A 200 J synchronized biphasic shock restored normal sinus rhythm without significant bradycardia. There were no complications.
Conclusion: Uncomplicated cardioversion from atrial flutter to sinus rhythm.
Recommendation: Routine post cardioversion care. Continue ad terminal makeup operator anticoagulation.
--- NOTE | 2023-09-08 09:40 | PTCARENOTE ---
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 VSS. No complaints of pain or discomfort. SR on telemetry. Call valdes within reach.
[2023-09-08] MEDS: LOW STRENGTH ASPIRIN 81 MG PO (11:11)
[2023-09-08] MEDS: PLAVIX 75 MG PO (11:11)
[2023-09-08] MEDS: MIRALAX PO (11:13)
--- NOTE | 2023-09-08 11:45 | CM ---
Reviewed chart. Met with Mrs. Larry and her daughter and [id number] to review discharge plans. We reviewed discharge planning options of SNF/Rehab. and home with [facility] and private caregivers. They have selected to return home with
[facility] and private caregivers. Daughter is going to call a few places to check on available private caregivers. Mrs. Wagoner has selected [facility]. Telephone call to [facility] Intake to make a referral. Sent
referral. Medical work-up in progress. The discharge plan is to return home with [facility] and private caregivers when medically stable.
[2023-09-08] MEDS: MIRALAX 17 GRAMS PO (12:19)
[2023-09-08] MEDS: PACERONE 400 MG PO ×2 (12:20→20:40)
[2023-09-08] MEDS: TOPROL XL 75 MG PO ×2 (12:22→20:40)
[2023-09-08] MEDS: SENOKOT-S 1 TABLET PO (14:45)
--- NOTE | 2023-09-08 15:43 | W.PN.NEPH.PH ---
Today's Communication / Plan
-
- Cr continues to rise, awaiting plateau
Assessment/Plan
-
Assessment
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
Acute kidney injury
Atrial fibrillation a flutter
Heart failure preserved ejection fraction
Polymyalgia rheumatica
Coronary artery disease with recent LAD PCI
Interstitial lung disease
Plan
Holding Lasix for now. She is not in respiratory distress or does not appear to be volume overloaded
s/p cardioversion
Lasix may be restarted if creatinine plateaus or improves but currently still uptrending
Follow BMP
Discussed with patient and family.
-
-
Date of Service: September 08, 2023
CC / HPI / ROS
-
Chief Complaint:
CAMRON
History of Present Illness:
cardiac cath on and Cr continuing to rise to 2.4 today
Afib s/p cardioversion today
Review of Systems:
overall feeling better
wants to go home
Labs
-
Labs:
WBC 8.1 10^3/uL (4.8-10.8) 09/08/23 05:31
RBC 3.42 10^6/uL (4.20-5.40) L 09/08/23 05:31
Hgb 10.8 g/dL (12.0-16.0) L 09/08/23 05:31
Hct 33.1 % (37.0-47.0) L 09/08/23 05:31
Plt Count 189 10^3/uL (130-400) 09/08/23 05:31
Sodium 141 mmol/L (135-145) 09/08/23 05:31
Potassium 4.1 mmol/L (3.5-5.1) 09/08/23 05:31
Chloride 103 mmol/L (98-107) 09/08/23 05:31
Carbon Dioxide 30 mmol/L (22-30) 09/08/23 05:31
BUN 43 mg/dl (7-17) H 09/08/23 05:31
Creatinine 2.4 mg/dL (0.6-1.0) H 09/08/23 05:31
eGFR 19.07 09/08/23 05:31
Glucose 114 mg/dl (70-99) H 09/08/23 05:31
Calcium 9.3 mg/dl (8.4-10.2) 09/08/23 05:31
Phosphorus 4.6 mg/dl (2.5-4.5) H 09/03/23 03:26
Uts-A-Zxjpzfsrjny Pept 7570 pg/ml 08/30/23 06:19
Albumin 3.0 g/dl (3.5-5.0) L 09/06/23 04:31
Physical Exam
-
Vital Signs:
Vital Signs
Temp Pulse Resp BP Pulse Ox
98.2 F 66 18 121/58 94
09/08/23 15:26 09/08/23 12:21 09/08/23 15:26 09/08/23 12:21 09/08/23 15:26
Cardiovascular:: Irregular rate and rhythm
Respiratory:: Bilateral: Coarse
Lung Excursion:: Normal
Abdomen:: Nontender and Soft
Bowel Sounds:: Normal
Extremity Edema:: +2: Bilateral:
Whitley Catheter: No
[2023-09-08] MEDS: LIPITOR 40 MG PO (18:30)
[2023-09-08] MEDS: VITAMIN D3 (cholecalciferol) 25 MCG PO (18:30)
[2023-09-08] MEDS: THERAGRAN 1 TABLET PO (18:30)
[2023-09-08] MEDS: ZETIA 10 MG PO (18:30)
[2023-09-08] MEDS: DELTASONE 5 MG PO (18:30)
[2023-09-08] MEDS: MELATONIN 5 MG PO (20:40)
[2023-09-08] MEDS: PEPCID 20 MG PO (22:43)
[2023-09-08] MEDS: DESYREL 25 MG PO (22:44)
[2023-09-09] VITALS (8 sets, daily range): BP systolic 112–138; BP diastolic 54–92; PULSE 84; O2SAT 93; BMI 31.6
--- NOTE | 2023-09-09 00:45 | PTCARENOTE ---
assumed care of patient at the change of shift with family at the bedside. at 1999, HR SR 80s. later in shift, HR appeared to be in Afib 90s. EKG for rhythm change completed.
currently at this time, HR continues to be Afib 80s. bp stable. patient denies any symptoms. ambulating to the bathroom with the rolling walker, steady on her feet. + 1 LE edema noted/pitting. b/l UE/LE ecchymotic. reviewed plan of care with patient
and verbalized understanding. patient eager to go home tomorrow.
[2023-09-09 04:25] LABS: Hematocrit 31.1 % (37.0-47.0); Hemoglobin 10.4 g/dL (12.0-16.0); Mean Corp Hgb Conc. 33.4 g/dL (33.0-37.0); Mean Corpuscular Volume 95.7 fL (81.0-99.0); Mean Platelet Volume 10.6 fL (7.4-10.4); Platelet Count 187 10^3/uL (130-400); Red Blood Cell Count 3.25 10^6/uL (4.20-5.40); Red Cell Dist. Width 14.2 % (11.5-14.5); White Blood Cell Count 6.7 10^3/uL (4.8-10.8)
[2023-09-09 04:46] LABS: Blood Urea Nitrogen 46 mg/dl (7-17); Calcium 8.9 mg/dl (8.4-10.2); Carbon Dioxide 26 mmol/L (22-30); Chloride 106 mmol/L (98-107); Estimated Creatinine Clearance 14 ml/min; Glucose 100 mg/dl (70-99); Sodium 138 mmol/L (135-145); eGFR 15.85
--- NOTE | 2023-09-09 07:54 | W.PN.HOSP.TC ---
Today's Communication/Plan
-
resume diuresis Lasix IV 40 mg bid
monitor renal function
amiodarone rhythm control as per cardio
cont asa plavix Eliquis
Assessment / Plan
Assessment / Plan
Physical Exam
General: Obese, no acute distress
HEENT: Normocephalic, Atraumatic, EOMI, MMM
Respiratory: Bibasilar crackles
Cardiac: S1/S2 NSR
GI: Soft, Nontender, Nondistended, Normal Bowel Sounds
Extremities: No Clubbing, Cyanosis
+ bilater lower extremity edema
Neuro: Nonfocal/Grossly Intact
Psych: Calm, Cooperative
Derm: Diffuse scattered ecchymosis, especially on the hands and forearms
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 Santos for new onset A-fib following routine visit.� No prior history of A-fib.� Endorsed exertional dyspnea several months and fatigue.� She also reported abd pain attacks that occur whenever she drinks liquids.� Pain
last 15 minutes and then subsides.� reports intermittent nausea denies vomiting.� Reported weight loss 20 pounds in the past 6 months with associate appetite loss.�
#New onset atrial fibrillation with RVR
#Atrial flutter
Status post IV Cardizem drip and IV heparin drip, currently on metoprolol, Eliquis
Heart rate continues to be high with palpitations with activity
Heart rate improved since amiodarone start 09/04
Cardiology eval appreciated s/p JIAN successful cardioversion 09/07 unfortunately continues in and out afib/aflutter since cardioversione
#Non-ST elevation myocardial infarction
#Coronary artery disease
S/p stress test 09/01 concerning for ischemia, cardiac catheterization 09/03 showed 70% stenosis of the mid LAD, partially in-stent restenosis
S/p PCI , continue aspirin, Plavix, Eliquis for 1 week, then Plavix and Eliquis, 09/09 last day of triple therapy
Continue statin
#Acute on Chronic HFpEF
#Acute Hypoxic Respiratory Failure requiring 5L
#New onset dyspnea overnight 08/29-08/30 with associate confusion possible Hospital associated delirium
since improved with Lasix diuresis
Creatinine however started rising again following contrast use, leading to hold on diuresis again
received contrast during her cardiac cath on 09/03, and PCI in
Trend weights, monitor creatinine
#CAMRON on CKD 3 likely prerenal/secondary to Lasix later worsened d/t contrast-induced nephropathy vs cardiorenal syndrome
Initial Creatinine 2.6 improved to 1.5 before worsening again d/t contrast
lasix on hold again since 09/05
09/08 Cardiology Nephro Appreciated continued rise Cr out of proportion with ADELFO, suspect cardiorenal syndrome with increasing weight BNP crackles on auscultation swelling lower ext and progressive intermittent exertional dyspnea
Lasix IV 40 mg BID restarted
#Acute blood loss anemia
#Right wrist hematoma
Supportive care
Secondary to blood draws, ecchymosis, right radial wrist hematoma
H&H remains relatively stable 10-11
will cont to monitor
#Presbyesophagus/esophageal dysmotility
#Abdominal pain/dysphagia to solids/weight loss
#Hx of Hiatal hernia/GERD
Continue omeprazole, famotidine
GI consult appreciated, Abd US appreciated likely fatty liver disease
Upper GI series appreciated presbyesophagus, no further inpatient GI procedures planned
SPL recommends regular solids, thin liquids, esophageal precautions, meds as tolerated
#Obesity due to excess calories
Affects all aspects of care
Moderate Mitral Regurgitation�
Mild aortic stenosis
Interstitial lung disease on 2 L at bedtime
History of hemorrhoidal bleeding
Essential hypertension
-Continue metoprolol
Hyperlipidemia
-Continue Zetia
Hypothyroidism
-Continue levothyroxine
Polymyalgia rheumatica
-Continue prednisone
Fibromyalgia
-Continue Percocet
Constipation
cont bowel regimen miralax, scheduled senna/docusate added
Psoriatic arthritis
Cervical radiculopathy
Spinal stenosis
Anxiety
-Continue venlafaxine
insomnia
-started low dose Trazodone bedtime 09/07 cont
History of shingles
Former smoker
PT/OT
DVT prophylaxis - Eliquis
Full Code
Discussed with patient and her son Clifford
I spent a total of 55 minutes with the patient or on the floor. More than 50% of this time involved counseling and coordination of care.
Anticipated Discharge: 24 - 48 hours
Subjective/Interval History
-
Date of Service: September 09, 2023
Seen and examined at bedside in no acute distress. reporting increasing exertional dyspnea. remains stable on room air at rest. Continues to report constipation. Offered suppository/enema. Patient declines.
Objective Data
-
Labs:
Laboratory Results
09/09/23
03:49
WBC 6.7
Hgb 10.4 L
Hct 31.1 L
Plt Count 187
Sodium 138
Potassium 4.0
Chloride 106
Carbon Dioxide 26
BUN 46 H
Creatinine 2.8 H
Glucose 100 H
Calcium 8.9
Vital Signs:
Vital Signs
Temp Pulse Resp BP Pulse Ox
98.3 F 91 18 129/92 95
09/09/23 06:47 09/09/23 06:47 09/09/23 06:47 09/09/23 03:46 09/09/23 06:47
I&O
09/08/23 09/09/23 09/10/23
06:59 06:59 06:59
Intake Total 960 / 960 720 / 720
Balance 960 / 960 720 / 720
[2023-09-09] MEDS: SYNTHROID 75 MCG PO (08:42)
[2023-09-09] MEDS: PACERONE 400 MG PO ×2 (08:43→20:24)
[2023-09-09] MEDS: EFFEXOR XR 75 MG PO (08:43)
[2023-09-09] MEDS: TOPROL XL 75 MG PO ×2 (08:43→20:24)
[2023-09-09] MEDS: ELIQUIS 2.5 MG PO ×2 (08:43→20:24)
[2023-09-09] MEDS: LOW STRENGTH ASPIRIN 81 MG PO (08:43)
[2023-09-09] MEDS: PROTONIX 40 MG PO (08:43)
[2023-09-09] MEDS: PLAVIX 75 MG PO (08:43)
[2023-09-09] MEDS: MIRALAX 17 GRAMS PO (08:43)
[2023-09-09 11:04] LABS: NT-proBNP 8750 pg/ml
--- NOTE | 2023-09-09 13:30 | W.PN.CARDCBS ---
Today's Communication / Plan
-
Overall doing well, still with intermittent SOB.
-ProBNP in 8500, CXR with bilateral pleural effusion, +JVP on exam with rales--> discussed with primary team and nephrology about resuming IV diuretics which have been held last couple of days in setting of worsening renal function (which appears
trend breaux, out of proportion to ADELFO)
-ASA 81mg x 7 days total (last day September 09)
-Cont plavix 75 and eliquis 2.5mg bid beyond that in setting if recent LAD stents and Afib with high [id number].
-s/p DCCV yesterday with NSR however reverted back to Afib early this AM. Cont amiodarone. No acute plans for repeat DCCV. Cont with rate control and hopefully with achieve NSR with amio.
-Anticipate discharge in 24-48hrs.
-PT/OT.
Impression / Plan
-
.
PCP: Wilbert Figueroa
[facility] Client [facility]: Dr. Santos
Impression:
Weight loss and dysphagia on admission 08/27/23
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
Newly diagnosed atrial flutter with RVR 08/27/23
Dyspnea on exertion
CAMRON
Elevated Troponin
CAD
s/p OM stent 10/08/17 with residual 40% stenosis of mid LAD and 50-60% stenosis of prox PDA
PCI RCA 07/2010 ([facility])
PCI LAD 2004 ([facility])
Chronic HFpEF
HTN
Hypertension
Mild peak/mean 22/13 mmHg and TAM 1.4 cm sq
HTN
Psoriatic arthritis
Polymyalgia rheumatica
Hyperlipidemia
Hx interstitial lung disease on chronic oxygen at night
Hypothyroidism
Anxiety
Fibromyalgia
Chronic dyspnea
Hx cervical radiculopathy
Statin intolerance
Hx left rotator cuff tear
Urethral stone w/ hydronephrosis 01/2018
Shingles 09/2022
Syncope 09/2022 in setting of GI illness/dehydration
Chronic pain syndrome on oxycodone daily
Echo 01/06/18:�Mild LVH, EF 50-55% possible lateral hypokinesis, normal RV, severely dilated LA, Mild to moderate MR, Mild aortic stenosis, peak/mean gradient 29/16, aortic valve area 1.6 cm�, Mild TR, pulmonary pressure 51-56 mmHg
Echo October 2018: Ejection fraction 60-65 percent, mild MR, mild , mild-moderate AI�������
Echo 07/2020: EF 60-65%, mild with MPG 14 mm Hg, TAM 1.7 cm2.
Echo 03/04/23:�EF 55-60% with mild MR, mild , aortic root 4 cm, trace pericardial effusion
Echo 06/04/23: EF 55 to 60%, mild concentric LVH, mild mitral stenosis with mean transmitral gradient 6 mmHg, moderate MR, mild peak/mean gradient 22/13 mmHg and TAM 1.4 cm sq, trace TR with pulmonary artery systolic pressure 26 mmHg mildly
dilated aortic root
Echo 08/29/2023: EF 40-45%, pleural effusion
Plan:
Ms Larry is a 88-year-old female with past medical history of polymyalgia rheumatica on chronic steroids, hyperlipidemia with reported statin intolerance, coronary artery disease with prior stenting of the LAD, most recently and distal RCA, most
recently to OM1 who presented this admission with ongoing dyspnea on exertion found to have new atrial flutter, mild troponin elevation as well as new mild left ventricular dysfunction, LVEF of 40 to 45% with a subsequent Lexiscan MIBI with evidence
of possible anterior and basilar to mid lateral ischemia with fixed apical defect. Prone images were not able to be done.��
-Left heart catheterization September 03, 2023 noting long area up to 70% stenosis in mid LAD with partial in-stent restenosis, eccentric 60 to 70% mid OM2 stenosis and 40 to 50% OM1 in-stent restenosis. The distal RCA stent patent with a 50 to 60%
stenosis in the proximal RPDA beyond the stented segment.
-Staged revascularization September 04, 2023 with successful percutaneous coronary artery intervention of 70% mid LAD (in setting of anterior ischemia on recent Lexiscan MIBI) with a 2.5 x 33 mm Xience mary point drug-eluting stent, successfully
postdilated with a 2.75 x 20 mm NC balloon at 18 jean-paul distally and a 3.0 x 15 mm NC balloon at 18 jean-paul proximally with an excellent angiographic result. The proximal OM was IFR negative.
-R radial site with significant bruising to R hand and forearm. A limited duplex of the right upper extremity 09/05/23 reveals multiphasic waveforms in the right radial and ulnar arteries. A hematoma is identified measuring 1.7 cm x 0.6 cm x 1 cm.
-ProBNP in 8500, CXR with bilateral pleural effusion, +JVP on exam with rales--> discussed with primary team and nephrology about resuming IV diuretics which have been held last couple of days in setting of worsening renal function (which appears
trend breaux, out of proportion to ADELFO)
-ASA 81mg x 7 days total (last day September 09)
-Cont plqvix 75 and eliquis 2.5mg bid beyond that in setting if recent LAD stents and Afib with high [id number].
-s/p DCCV yesterday with NSR however reverted back to Afib early this AM. Cont amiodarone. No acute plans for repeat DCCV. Cont with rate control and hopefully with achieve NSR with amio.
-Anticipate discharge in 24-48hrs.
-PT/OT.
Polymyalgia rheumatica on chronic steroids
HPI:
Patient came to ER from the cardiology office yesterday with new atrial flutter but also complains of weight loss and dysphagia, she is now admitted with plan for GI workup and cardiology has been consulted for ongoing atrial flutter. Patient
was seen by Dr. Santos in the office 08/27/2023 and had complaints including severe weakness and poor p.o. intake. He was found to be in atrial flutter with 2-1 block at rest. She has no history of atrial arrhythmia. She was sent to ER
thinking that she would need workup for her abdominal pain and weight loss. The patient has been seen by gastroenterology and the plan is for an upper GI series in the morning. She also had an abdominal ultrasound performed earlier today. In the
meantime she has remained in atrial flutter and is on a Cardizem drip at 5 mg/hr with HRs in the 80s to 90s and she denies any palpitations. She says she has ongoing dyspnea on exertion. Her troponin was elevated initially at 0.152 and trended
down thereafter. She has a history of CAD with previous LAD PCI in 2004, RCA PCI in 2010 and obtuse marginal stent in 2017. Her last ischemic evaluation was May 2018 that showed a small partially reversible inferolateral defect that was
improved from previous stress test.
Progress Note - [facility] Client [facility]
Subjective
Date of Service: September 09, 2023
Still with some LOVELACE and orthopnea.
Objective
Labs:
09/09/23 03:49
09/09/23 03:49
Labs
Hgb 10.4 g/dL (12.0-16.0) L 09/09/23 03:49
Hct 31.1 % (37.0-47.0) L 09/09/23 03:49
Plt Count 187 10^3/uL (130-400) 09/09/23 03:49
APTT 97.3 Sec (23.4-35.0) H 09/04/23 08:58
Sodium 138 mmol/L (135-145) 09/09/23 03:49
Potassium 4.0 mmol/L (3.5-5.1) 09/09/23 03:49
BUN 46 mg/dl (7-17) H 09/09/23 03:49
Creatinine 2.8 mg/dL (0.6-1.0) H 09/09/23 03:49
Glucose 100 mg/dl (70-99) H 09/09/23 03:49
Vital Signs and I&O:
Vital Signs
Temp Pulse Resp BP Pulse Ox
98.2 F 87 16 115/69 95
03/05/24 12:05 09/09/23 12:05 09/09/23 12:05 09/09/23 11:47 09/09/23 06:47
Vital Signs
Temp Pulse Resp BP Pulse Ox
98.2 F 87 16 115/69 95
09/09/23 12:05 09/09/23 12:05 09/09/23 12:05 09/09/23 11:47 09/09/23 06:47
Intake & Output
09/07/23 09/08/23 09/09/23 09/10/23
06:59 06:59 06:59 06:59
Intake Total 720 / 720 960 / 960 720 / 720
Balance 720 / 720 960 / 960 720 / 720
Physical Exam
Physical Exam
General: No acute distress, AAOX3
Neck: Positive JVD
Heart: Irregularly irregular, Negative S3 positive S1/S2, Negative S4, No murmur
Lungs: Decreased BS at bases with rales in mid lobes
Abd: Positive BS, NT/ND, neg rebound/rigidity/guarding
Ext: Negative cyanosis/clubbing/edema
Neuro: nonfocal
[2023-09-09] MEDS: LASIX 40 MG IV (15:35)
[2023-09-09] MEDS: FLUSH (NSS) 2 FLUSH IV (15:39)
--- NOTE | 2023-09-09 17:04 | W.PN.NEPH.PH ---
Today's Communication / Plan
-
- lasix 40mg BID
Assessment/Plan
-
Assessment
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
Acute kidney injury
Atrial fibrillation a flutter
Heart failure preserved ejection fraction
Polymyalgia rheumatica
Coronary artery disease with recent LAD PCI
Interstitial lung disease
Plan:
c/f ADELFO vs. cardiorenal
- unfortunately urinary sodium is not helpful as it would be low in both
Restarted lasix 40mg IV BID.
She is not in respiratory distress but is developing swelling of the bilateral lower extremities
very tearful today, wants to go home
s/p cardioversion
Follow BMP
Discussed with patient
-
-
Date of Service: September 09, 2023
CC / HPI / ROS
-
Chief Complaint:
CAMRON
History of Present Illness:
cardiac cath on and Cr continuing to rise to 2.8
Afib s/p cardioversion today
will plan for diuresis
Review of Systems:
overall feeling better
wants to go home
Labs
-
Labs:
WBC 6.7 10^3/uL (4.8-10.8) 09/09/23 03:49
RBC 3.25 10^6/uL (4.20-5.40) L 09/09/23 03:49
Hgb 10.4 g/dL (12.0-16.0) L 09/09/23 03:49
Hct 31.1 % (37.0-47.0) L 09/09/23 03:49
Plt Count 187 10^3/uL (130-400) 09/09/23 03:49
Sodium 138 mmol/L (135-145) 09/09/23 03:49
Potassium 4.0 mmol/L (3.5-5.1) 09/09/23 03:49
Chloride 106 mmol/L (98-107) 09/09/23 03:49
Carbon Dioxide 26 mmol/L (22-30) 09/09/23 03:49
BUN 46 mg/dl (7-17) H 09/09/23 03:49
Creatinine 2.8 mg/dL (0.6-1.0) H 09/09/23 03:49
eGFR 15.85 09/09/23 03:49
Glucose 100 mg/dl (70-99) H 09/09/23 03:49
Calcium 8.9 mg/dl (8.4-10.2) 09/09/23 03:49
Phosphorus 4.6 mg/dl (2.5-4.5) H 09/03/23 03:26
Zxb-U-Uibjntkunbx Pept 8750 pg/ml 09/09/23 03:49
Albumin 3.0 g/dl (3.5-5.0) L 09/06/23 04:31
Physical Exam
-
Vital Signs:
Vital Signs
Temp Pulse Resp BP Pulse Ox
98.1 F 81 20 130/90 98
09/09/23 15:48 09/09/23 15:38 09/09/23 15:48 09/09/23 15:38 09/09/23 15:48
Cardiovascular:: Irregular rate and rhythm
Respiratory:: Bilateral: Coarse
Lung Excursion:: Normal
Abdomen:: Nontender and Soft
Bowel Sounds:: Normal
Extremity Edema:: +2: Bilateral:
Whitley Catheter: No
--- NOTE | 2023-09-09 18:21 | PTCARENOTE ---
Pt AAOx3 w/no c/o CP; pt reports 'feeling more SOB'; SpO2 sats good at 98% on RA. Pt's VS stable. Pt able to ambulate into the [facility] w/PT this afternoon & worked w/OT. Pt rec'd one dose of IV Lasix as ordered w/excellent output. Pt removed measuring
container when placed by nursing. Pt states she 'misses it anyway & her gown falls in it all the time'. Pt can be anxious at times. Plan of care ongoing.
[2023-09-09] MEDS: ZETIA 10 MG PO (19:17)
[2023-09-09] MEDS: DELTASONE 5 MG PO (19:17)
[2023-09-09] MEDS: VITAMIN D3 (cholecalciferol) 25 MCG PO (19:17)
[2023-09-09] MEDS: THERAGRAN 1 TABLET PO (19:18)
[2023-09-09] MEDS: LIPITOR 40 MG PO (19:18)
[2023-09-09] MEDS: MELATONIN 5 MG PO (20:24)
[2023-09-09] MEDS: DESYREL 25 MG PO (22:45)
[2023-09-09] MEDS: PEPCID 20 MG PO (22:45)
[2023-09-10] VITALS (7 sets, daily range): BP systolic 118–157; BP diastolic 63–107; BMI 31.2
[2023-09-10 05:36] LABS: Hematocrit 33.6 % (37.0-47.0); Hemoglobin 11.1 g/dL (12.0-16.0); Mean Corpuscular Volume 96.8 fL (81.0-99.0); Mean Platelet Volume 10.5 fL (7.4-10.4); Platelet Count 190 10^3/uL (130-400); Red Blood Cell Count 3.47 10^6/uL (4.20-5.40); Red Cell Dist. Width 14.1 % (11.5-14.5); White Blood Cell Count 6.5 10^3/uL (4.8-10.8)
[2023-09-10] MEDS: SYNTHROID 75 MCG PO (05:58)
[2023-09-10 05:59] LABS: Blood Urea Nitrogen 47 mg/dl (7-17); Calcium 8.5 mg/dl (8.4-10.2); Carbon Dioxide 28 mmol/L (22-30); Chloride 106 mmol/L (98-107); Estimated Creatinine Clearance 14 ml/min; Glucose 104 mg/dl (70-99); Magnesium 2.2 mg/dl (1.6-2.3); Phosphorus 4.5 mg/dl (2.5-4.5); Potassium 3.9 mmol/L (3.5-5.1); Sodium 139 mmol/L (135-145); eGFR 16.56
--- NOTE | 2023-09-10 08:08 | W.PN.HOSP.TC ---
Today's Communication/Plan
-
cont diuresis
monitor renal function
daily weight I/O
amiodarone rhythm control as per cardio
Completed 7 days triple therapy, asa discontinued
cont plavix Eliquis
Assessment / Plan
Assessment / Plan
Physical Exam
General: Obese, no acute distress
HEENT: Normocephalic, Atraumatic, EOMI, MMM
Respiratory: Bibasilar crackles
Cardiac: S1/S2 NSR
GI: Soft, Nontender, Nondistended, Normal Bowel Sounds
Extremities: No Clubbing, Cyanosis
+ bilater lower extremity edema
Neuro: AOx3
Psych: Calm, Cooperative
Derm: Diffuse scattered ecchymosis, especially on the hands and forearms
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 Santos for new onset A-fib following routine visit.� No prior history of A-fib.� Endorsed exertional dyspnea several months and fatigue.� She also reported abd pain attacks that occur whenever she drinks liquids.� Pain
last 15 minutes and then subsides.� reports intermittent nausea denies vomiting.� Reported weight loss 20 pounds in the past 6 months with associate appetite loss.�
#New onset atrial fibrillation with RVR
#Atrial flutter
Status post IV Cardizem drip and IV heparin drip, currently on metoprolol, Eliquis
Heart rate continues to be high with palpitations with activity
Heart rate improved since amiodarone start 09/04
Cardiology eval appreciated s/p JIAN successful cardioversion 09/07 unfortunately converted back to afib/aflutter
#Non-ST elevation myocardial infarction
#Coronary artery disease
S/p stress test 09/01 concerning for ischemia, cardiac catheterization 09/03 showed 70% stenosis of the mid LAD, partially in-stent restenosis
S/p PCI , completed 7 day triple therapy, ASA discontinued cont Eliquis Plavix
Continue statin
#Acute on Chronic HFpEF
#Acute Hypoxic Respiratory Failure required 5L since weaned off
#New onset dyspnea overnight 08/29-08/30 with associate confusion possible Hospital associated delirium since resolved
since improved with Lasix diuresis
received contrast during her cardiac cath on 09/03, and PCI in
Cr however started rising again followed contrast use, leading to hold on diuresis again
Trend weights, monitor creatinine
#CAMRON on CKD3 likely prerenal/secondary to Lasix later worsened d/t contrast-induced nephropathy vs cardiorenal syndrome
Initial Creatinine 2.6 improved to 1.5 before worsening again following contrast
lasix placed on hold again 09/05
09/08 Cardiology Nephro Appreciated continued rise Cr out of proportion with ADELFO, suspect cardiorenal syndrome with increasing weight BNP crackles on auscultation swelling lower ext and progressive intermittent exertional dyspnea
Lasix IV 40 mg BID restarted, Cr rise since plateu'd
#Acute blood loss anemia
#Right wrist hematoma
Supportive care
Secondary to blood draws, ecchymosis, right radial wrist hematoma improved
H&H stable
cont to monitor
#Presbyesophagus/esophageal dysmotility
#Abdominal pain/dysphagia to solids/weight loss
#Hx of Hiatal hernia/GERD
Continue omeprazole, famotidine
GI consult appreciated, Abd US appreciated likely fatty liver disease
Upper GI series appreciated presbyesophagus, no further inpatient GI procedures planned
SPL recommends regular solids, thin liquids, esophageal precautions, meds as tolerated
#Obesity due to excess calories
Affects all aspects of care
Moderate Mitral Regurgitation�
Mild aortic stenosis
Interstitial lung disease on 2 L at bedtime
History of hemorrhoidal bleeding
Essential hypertension
-Continue metoprolol
Hyperlipidemia
-Continue Zetia
Hypothyroidism
-Continue levothyroxine
Polymyalgia rheumatica
-Continue prednisone
Fibromyalgia
-Continue Percocet
Constipation
cont bowel regimen miralax, scheduled senna/docusate added
Psoriatic arthritis
Cervical radiculopathy
Spinal stenosis
Anxiety
-Continue venlafaxine
insomnia
-started low dose Trazodone bedtime 09/07 cont
History of shingles
Former smoker
PT/OT
DVT prophylaxis - Eliquis
Full Code
Discussed with patient and her daughter Rosario
I spent a total of 55 minutes with the patient or on the floor. More than 50% of this time involved counseling and coordination of care.
Anticipated Discharge: 24 - 48 hours
Subjective/Interval History
-
Date of Service: September 10, 2023
seen and examined at bedside in no acute distress. reports improvement in exertional dyspnea, weight loss.
Objective Data
-
Labs:
Laboratory Results
09/10/23
05:08
WBC 6.5
Hgb 11.1 L
Hct 33.6 L
Plt Count 190
Sodium 139
Potassium 3.9
Chloride 106
Carbon Dioxide 28
BUN 47 H
Creatinine 2.7 H
Glucose 104 H
Calcium 8.5
Vital Signs:
Vital Signs
Temp Pulse Resp BP Pulse Ox
98.3 F 101 20 120/67 95
09/10/23 05:00 09/10/23 04:57 09/10/23 05:00 09/10/23 04:57 09/10/23 05:00
I&O
09/09/23 09/10/23 09/11/23
06:59 06:59 06:59
Intake Total 720 / 720 1160 / 1160
Balance 720 / 720 1160 / 1160
[2023-09-10] MEDS: SENOKOT-S 1 TABLET PO ×2 (08:40→21:09)
[2023-09-10] MEDS: LOW STRENGTH ASPIRIN 81 MG PO (08:40)
[2023-09-10] MEDS: FLUSH (NSS) 2 FLUSH IV ×2 (08:41→18:20)
[2023-09-10] MEDS: LASIX 40 MG IV ×2 (08:41→18:19)
[2023-09-10] MEDS: MIRALAX 17 GRAMS PO (08:43)
[2023-09-10] MEDS: ELIQUIS 2.5 MG PO ×2 (08:43→21:08)
[2023-09-10] MEDS: PROTONIX 40 MG PO (08:43)
[2023-09-10] MEDS: EFFEXOR XR 75 MG PO (10:47)
[2023-09-10] MEDS: PLAVIX 75 MG PO (10:47)
[2023-09-10] MEDS: TOPROL XL 75 MG PO ×2 (10:47→21:09)
[2023-09-10] MEDS: PACERONE 400 MG PO ×2 (10:47→21:10)
--- NOTE | 2023-09-10 11:21 | W.PN.NEPH.PH ---
Today's Communication / Plan
-
Need to obtain urine output accurately
Maintain IV Lasix
Follow BMP
Assessment/Plan
-
Assessment
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
Acute kidney injury
Atrial fibrillation a flutter
Heart failure preserved ejection fraction
Polymyalgia rheumatica
Coronary artery disease with recent LAD PCI
Interstitial lung disease
Plan:
Creatinine at 2.7
c/f ADELFO vs. cardiorenal
Urine output not recorded but weights down
Restarted lasix 40mg IV BID.
She is not in respiratory distress but is developing swelling of the bilateral lower extremities
s/p cardioversion
Follow BMP
Discussed with patient
-
-
Date of Service: September 10, 2023
CC / HPI / ROS
-
Chief Complaint:
CAMRON
History of Present Illness:
cardiac cath on and Cr continuing down to 2.7
Afib s/p cardioversion
Hemodynamically stable
Review of Systems:
overall feeling better
Weights down
No chest pain or shortness of
Labs
-
Labs:
WBC 6.5 10^3/uL (4.8-10.8) 09/10/23 05:08
RBC 3.47 10^6/uL (4.20-5.40) L 09/10/23 05:08
Hgb 11.1 g/dL (12.0-16.0) L 09/10/23 05:08
Hct 33.6 % (37.0-47.0) L 09/10/23 05:08
Plt Count 190 10^3/uL (130-400) 09/10/23 05:08
Sodium 139 mmol/L (135-145) 09/10/23 05:08
Potassium 3.9 mmol/L (3.5-5.1) 09/10/23 05:08
Chloride 106 mmol/L (98-107) 09/10/23 05:08
Carbon Dioxide 28 mmol/L (22-30) 09/10/23 05:08
BUN 47 mg/dl (7-17) H 09/10/23 05:08
Creatinine 2.7 mg/dL (0.6-1.0) H 09/10/23 05:08
eGFR 16.56 09/10/23 05:08
Glucose 104 mg/dl (70-99) H 09/10/23 05:08
Calcium 8.5 mg/dl (8.4-10.2) 09/10/23 05:08
Phosphorus 4.5 mg/dl (2.5-4.5) 09/10/23 05:08
Kav-C-Zozcrqdspye Pept 8750 pg/ml 09/09/23 03:49
Albumin 3.0 g/dl (3.5-5.0) L 09/06/23 04:31
Physical Exam
-
Vital Signs:
Vital Signs
Temp Pulse Resp BP Pulse Ox
98.5 F 94 20 137/87 94
09/10/23 10:58 09/10/23 08:01 09/10/23 10:58 09/10/23 08:01 09/10/23 10:58
Cardiovascular:: Regular rate and rhythm
Respiratory:: Bilateral: Coarse
Lung Excursion:: Normal
Abdomen:: Nontender and Soft
Bowel Sounds:: Normal
Extremity Edema:: +1: Bilateral:
Whitley Catheter: No
--- NOTE | 2023-09-10 15:07 | W.PN.CARDCBS ---
Today's Communication / Plan
-
-Continue with IV diuretics, resumed yesterday. Recommend daily upright weights, strict ins and outs, repletion of electrolytes as needed.
-ASA 81mg x 7 days total (last day September 09).
-Cont plavix 75 and eliquis 2.5mg bid beyond that in setting if recent LAD stents and Afib with high [id number].
-s/p DCCV September 08, 2023 with NSR however reverted back to Afib complaint analyst on September 09, 2023. Cont amiodarone. No acute plans for repeat DCCV. Cont with rate control and hopefully with achieve NSR with amio.
-Anticipate discharge in next 24-48hrs.
-PT/OT.
Lupe Paiz MD, FAC, [facility]
Impression / Plan
-
.
PCP: Wilbert Figueroa
Sales Agent Insurance: Dr. Santos
Impression:
Weight loss and dysphagia on admission 08/27/23
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
Newly diagnosed atrial flutter with RVR 08/27/23
Dyspnea on exertion
CAMRON
Elevated Troponin
CAD
s/p OM stent 10/08/17 with residual 40% stenosis of mid LAD and 50-60% stenosis of prox PDA
PCI RCA 07/2010 ([facility])
PCI LAD 2004 ([facility])
Chronic HFpEF
HTN
Hypertension
Mild peak/mean 22/13 mmHg and TAM 1.4 cm sq
HTN
Psoriatic arthritis
Polymyalgia rheumatica
Hyperlipidemia
Hx interstitial lung disease on chronic oxygen at night
Hypothyroidism
Anxiety
Fibromyalgia
Chronic dyspnea
Hx cervical radiculopathy
Statin intolerance
Hx left rotator cuff tear
Urethral stone w/ hydronephrosis 01/2018
Shingles 09/2022
Syncope 09/2022 in setting of GI illness/dehydration
Chronic pain syndrome on oxycodone daily
Echo 01/06/18:�Mild LVH, EF 50-55% possible lateral hypokinesis, normal RV, severely dilated LA, Mild to moderate MR, Mild aortic stenosis, peak/mean gradient 29/16, aortic valve area 1.6 cm�, Mild TR, pulmonary pressure 51-56 mmHg
Echo October 2018: Ejection fraction 60-65 percent, mild MR, mild , mild-moderate AI�������
Echo 07/2020: EF 60-65%, mild with MPG 14 mm Hg, TAM 1.7 cm2.
Echo 03/04/23:�EF 55-60% with mild MR, mild , aortic root 4 cm, trace pericardial effusion
Echo 06/04/23: EF 55 to 60%, mild concentric LVH, mild mitral stenosis with mean transmitral gradient 6 mmHg, moderate MR, mild peak/mean gradient 22/13 mmHg and TAM 1.4 cm sq, trace TR with pulmonary artery systolic pressure 26 mmHg mildly
dilated aortic root
Echo 08/29/2023: EF 40-45%, pleural effusion
Plan:
Ms Larry is a 88-year-old female with past medical history of polymyalgia rheumatica on chronic steroids, hyperlipidemia with reported statin intolerance, coronary artery disease with prior stenting of the LAD, most recently and distal RCA, most
recently to OM1 who presented this admission with ongoing dyspnea on exertion found to have new atrial flutter, mild troponin elevation as well as new mild left ventricular dysfunction, LVEF of 40 to 45% with a subsequent Lexiscan MIBI with evidence
of possible anterior and basilar to mid lateral ischemia with fixed apical defect. Prone images were not able to be done.��
-Left heart catheterization September 03, 2023 noting long area up to 70% stenosis in mid LAD with partial in-stent restenosis, eccentric 60 to 70% mid OM2 stenosis and 40 to 50% OM1 in-stent restenosis. The distal RCA stent patent with a 50 to 60%
stenosis in the proximal RPDA beyond the stented segment.
-Staged revascularization September 04, 2023 with successful percutaneous coronary artery intervention of 70% mid LAD (in setting of anterior ischemia on recent Lexiscan MIBI) with a 2.5 x 33 mm Xience mary point drug-eluting stent, successfully
postdilated with a 2.75 x 20 mm NC balloon at 18 jean-paul distally and a 3.0 x 15 mm NC balloon at 18 jean-paul proximally with an excellent angiographic result. The proximal OM was IFR negative.
-R radial site with significant bruising to R hand and forearm. A limited duplex of the right upper extremity 09/05/23 reveals multiphasic waveforms in the right radial and ulnar arteries. A hematoma is identified measuring 1.7 cm x 0.6 cm x 1 cm.
-ProBNP in 8500, CXR with bilateral pleural effusion, +JVP on exam with rales--> discussed with primary team and nephrology about resuming IV diuretics which have been held last couple of days in setting of worsening renal function (which appears
trend breaux, out of proportion to ADELFO)
-ASA 81mg x 7 days total (last day September 09)
-Cont plqvix 75 and eliquis 2.5mg bid beyond that in setting if recent LAD stents and Afib with high [id number].
-s/p DCCV yesterday with NSR however reverted back to Afib early this AM. Cont amiodarone. No acute plans for repeat DCCV. Cont with rate control and hopefully with achieve NSR with amio.
-Anticipate discharge in 24-48hrs.
-PT/OT.
Polymyalgia rheumatica on chronic steroids
HPI:
Patient came to ER from the cardiology office yesterday with new atrial flutter but also complains of weight loss and dysphagia, she is now admitted with plan for GI workup and cardiology has been consulted for ongoing atrial flutter. Patient
was seen by Dr. Santos in the office 08/27/2023 and had complaints including severe weakness and poor p.o. intake. He was found to be in atrial flutter with 2-1 block at rest. She has no history of atrial arrhythmia. She was sent to ER
thinking that she would need workup for her abdominal pain and weight loss. The patient has been seen by gastroenterology and the plan is for an upper GI series in the morning. She also had an abdominal ultrasound performed earlier today. In the
meantime she has remained in atrial flutter and is on a Cardizem drip at 5 mg/hr with HRs in the 80s to 90s and she denies any palpitations. She says she has ongoing dyspnea on exertion. Her troponin was elevated initially at 0.152 and trended
down thereafter. She has a history of CAD with previous LAD PCI in 2004, RCA PCI in 2010 and obtuse marginal stent in 2017. Her last ischemic evaluation was May 2018 that showed a small partially reversible inferolateral defect that was
improved from previous stress test.
Progress Note - Sales Agent Insurance
Subjective
Date of Service: September 10, 2023
Overall doing well. Shortness of breath has been improving.
Objective
Labs:
09/10/23 05:08
09/10/23 05:08
Labs
Hgb 11.1 g/dL (12.0-16.0) L 09/10/23 05:08
Hct 33.6 % (37.0-47.0) L 09/10/23 05:08
Plt Count 190 10^3/uL (130-400) 09/10/23 05:08
APTT 97.3 Sec (23.4-35.0) H 09/04/23 08:58
Sodium 139 mmol/L (135-145) 09/10/23 05:08
Potassium 3.9 mmol/L (3.5-5.1) 09/10/23 05:08
BUN 47 mg/dl (7-17) H 09/10/23 05:08
Creatinine 2.7 mg/dL (0.6-1.0) H 09/10/23 05:08
Glucose 104 mg/dl (70-99) H 09/10/23 05:08
Vital Signs and I&O:
Vital Signs
Temp Pulse Resp BP Pulse Ox
98.5 F 91 20 118/97 94
09/10/23 10:58 09/10/23 11:00 09/10/23 10:58 09/10/23 11:00 09/10/23 10:58
Vital Signs
Temp Pulse Resp BP Pulse Ox
98.5 F 91 20 118/97 94
09/10/23 10:58 09/10/23 11:00 09/10/23 10:58 09/10/23 11:00 09/10/23 10:58
Intake & Output
09/08/23 09/09/23 09/10/23 09/11/23
06:59 06:59 06:59 06:59
Intake Total 960 / 960 720 / 720 1160 / 1160
Balance 960 / 960 720 / 720 1160 / 1160
Physical Exam
Physical Exam
General: No acute distress, AAOX3
Neck: Positive JVD
Heart: Irregularly irregular, Negative S3 positive S1/S2, Negative S4, No murmur
Lungs: Decreased BS at bases with rales in mid lobes
Abd: Positive BS, NT/ND, neg rebound/rigidity/guarding
Ext: Negative cyanosis/clubbing/edema
Neuro: nonfocal
--- NOTE | 2023-09-10 16:06 | CM ---
Reviewed chart. Met with Mrs. Larry to review discharge plans. She states she maybe able to go home soon. We reviewed electric wheelchair. Tried to contact daughter, Rosario no answer and voice mail was full,so could not leave a message. Prior
to admission Mrs. Larry resides alone in a single story home with one steps to enter. Prior to admission she ambulates with a walker. [facility] to see her at home. Medical work-up in progress. The discharge plan is to return home with
[facility] when medically stable.
--- NOTE | 2023-09-10 16:25 | PTCARENOTE ---
Pt AAOx3, mildly anxious & agitated re: plan of care & not being discharged today. Emotional support provided by this RN. Pt's VS stable w/pt in Afib w/rate controlled in the 80's-90's. Pt's daughter in today w/home health caregivers to meet pt &
prepare for D/C to w/their assistance. Plan of care ongoing.
[2023-09-10] MEDS: ZETIA 10 MG PO (18:19)
[2023-09-10] MEDS: VITAMIN D3 (cholecalciferol) 25 MCG PO (18:19)
[2023-09-10] MEDS: DELTASONE 5 MG PO (18:19)
[2023-09-10] MEDS: THERAGRAN 1 TABLET PO (18:19)
[2023-09-10] MEDS: LIPITOR 40 MG PO (18:19)
[2023-09-10] MEDS: PEPCID 20 MG PO (21:09)
[2023-09-10] MEDS: DESYREL PO (21:09)
[2023-09-10] MEDS: MELATONIN 5 MG PO (21:10)
--- NOTE | 2023-09-10 22:26 | PTCARENOTE ---
Continuation of care of this pt. Pt's assessment unchanged from this RN's earlier assessment. Pt's BP continues to be low at 103/73. Pt's HR in the 80's & pt continues to be in SR on telemetry monitoring. Pt unable to take 1800 midodrine due to N&V
upon return from Cardiac MRI at 1735. Pt given PRN IV Compazine as ordered w/relief of vomiting, however pt remained nauseous. Pt able to take PO meds after 2100 when nausea improved some & he was able to eat a plain yogurt & sips some clear liqs.
Pt also c/o 'gasping episodes' post MRI & this RN administered PRN PO Ativan as ordered. Pt reported the 'gasping episodes are slowing down'. Pt w/call valdes within reach & plan of care ongoing.
--- NOTE | 2023-09-10 22:36 | PTCARENOTE ---
Addendum entered by Kitty Hendricks RN 09/10/23 22:41:
Pt's VS T 97.7, HR 84, BP 134/63, R 20, 96% on RA.
Original Note:
Continuation of care of this pt. Pt's assessment unchanged from this RN's earlier assessment. Pt's VS stable w/T 98.1, HR 112, BP 115/78, R 17, SpO2 97% on RA. Pt AAOX3 w/no c/o CP, but intermittently c/o SOB w/activity. Pt AAOx3 very talkative &
anxious at times. Pt w/call valdes within reach & plan of care ongoing.
[2023-09-11 03:20] VITALS: BP 117/61
[2023-09-11 03:21] VITALS: BMI 30.6
[2023-09-11 03:51] LABS: Hematocrit 34.1 % (37.0-47.0); Hemoglobin 11.4 g/dL (12.0-16.0); Mean Corp Hgb Conc. 33.4 g/dL (33.0-37.0); Mean Corpuscular Hgb 31.4 pg (27.0-31.0); Mean Corpuscular Volume 93.9 fL (81.0-99.0); Mean Platelet Volume 10.5 fL (7.4-10.4); Platelet Count 229 10^3/uL (130-400); Red Blood Cell Count 3.63 10^6/uL (4.20-5.40); Red Cell Dist. Width 14.1 % (11.5-14.5); White Blood Cell Count 7.8 10^3/uL (4.8-10.8)
[2023-09-11 04:31] LABS: Blood Urea Nitrogen 47 mg/dl (7-17); Carbon Dioxide 32 mmol/L (22-30); Chloride 99 mmol/L (98-107); Estimated Creatinine Clearance 16 ml/min; Glucose 112 mg/dl (70-99); Magnesium 1.9 mg/dl (1.6-2.3); Phosphorus 4.3 mg/dl (2.5-4.5); Potassium 3.4 mmol/L (3.5-5.1); Sodium 141 mmol/L (135-145); eGFR 19.07
--- NOTE | 2023-09-11 05:10 | PTCARENOTE ---
Pt. remains in A-fib, rate 90's-110's with activity. OOB to void frequently with RW and steady gait. Pt. hoping to be discharged later today.
[2023-09-11] MEDS: SYNTHROID 75 MCG PO (05:56)
--- NOTE | 2023-09-11 07:15 | W.PN.HOSP.TC ---
Today's Communication/Plan
-
discharge
Assessment / Plan
Assessment / Plan
Physical Exam
General: Obese, no acute distress
HEENT: Normocephalic, Atraumatic, EOMI, MMM
Respiratory: Bibasilar crackles improved, faint left lower lobe otherwise rest of lung jenkins clear to auscultation
Cardiac: S1/S2 NSR
GI: Soft, Nontender, Nondistended, Normal Bowel Sounds
Extremities: No Clubbing, Cyanosis
+ bilater lower extremity edema
Neuro: AOx3
Psych: Calm, Cooperative
Derm: Diffuse scattered ecchymosis, resolving
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
her secondary set up man office Dr. Santos for new onset A-fib following routine visit.� No prior history of A-fib.� Endorsed exertional dyspnea several months and fatigue.� She also reported abd pain attacks that occur whenever she drinks liquids.� Pain
last 15 minutes and then subsides.� reports intermittent nausea denies vomiting.� Reported weight loss 20 pounds in the past 6 months with associate appetite loss.�
#New onset atrial fibrillation with RVR
#Atrial flutter
Status post IV Cardizem drip and IV heparin drip, currently on metoprolol, Eliquis
Heart rate continues to be high with palpitations with activity
Heart rate improved since amiodarone start 09/04
Cardiology eval appreciated s/p JIAN successful cardioversion 09/07 unfortunately converted back to afib/aflutter
#Non-ST elevation myocardial infarction
#Coronary artery disease
S/p stress test 09/01 concerning for ischemia, cardiac catheterization 09/03 showed 70% stenosis of the mid LAD, partially in-stent restenosis
S/p PCI , completed 7 day triple therapy, ASA discontinued cont Eliquis Plavix
Continue statin
#Acute on Chronic HFpEF
#Acute Hypoxic Respiratory Failure required 5L since weaned off
#New onset dyspnea overnight 08/29-08/30 with associate confusion possible Hospital associated delirium since resolved
since improved with Lasix diuresis
received contrast during her cardiac cath on 09/03, and PCI in
Cr started rising again following contrast use, leading to hold on diuresis again due to concern ADELFO
#CAMRON on CKD3 likely prerenal/secondary to Lasix later worsened d/t contrast-induced nephropathy vs cardiorenal syndrome
Initial Creatinine 2.6 improved to 1.5 before worsening again following contrast
lasix placed on hold again 09/05
09/08 Cardiology Nephro Appreciated continued rise Cr out of proportion with ADELFO, suspect cardiorenal syndrome with increasing weight BNP crackles on auscultation swelling lower ext and progressive intermittent exertional dyspnea
Lasix IV 40 mg BID restarted, Cr since started trending down
09/10 Discussed with cardiology and nephrology, medically stable for discharge home with home services and outpatient follow up recommendations.
#Acute blood loss anemia
#Right wrist hematoma resolved
Supportive care
Secondary to blood draws, ecchymosis, right radial wrist hematoma improved
H&H stable
cont to monitor
#Presbyesophagus/esophageal dysmotility
#Abdominal pain/dysphagia to solids/weight loss
#Hx of Hiatal hernia/GERD
Continue omeprazole, famotidine
GI consult appreciated, Abd US appreciated likely fatty liver disease
Upper GI series appreciated presbyesophagus, no further inpatient GI procedures planned
SPL recommends regular solids, thin liquids, esophageal precautions, meds as tolerated
#Obesity due to excess calories
Affects all aspects of care
Moderate Mitral Regurgitation�
Mild aortic stenosis
Interstitial lung disease on 2 L at bedtime
History of hemorrhoidal bleeding
Essential hypertension
-Continue metoprolol
Hyperlipidemia
-Continue Zetia
Hypothyroidism
-Continue levothyroxine
Polymyalgia rheumatica
-Continue prednisone
Fibromyalgia
-Continue Percocet
Constipation
cont bowel regimen miralax, scheduled senna/docusate added
Psoriatic arthritis
Cervical radiculopathy
Spinal stenosis
Anxiety
-Continue venlafaxine
insomnia
-started low dose Trazodone bedtime 09/07 cont
History of shingles
Former smoker
PT/OT appreciated Home with home services
DVT prophylaxis - Eliquis
Full Code
Medically stable for discharge home with home services and outpatient follow up recommendations
Total Time Preparing Discharge __50 minutes including examination of the patient, summary of the hospital stay, instructions for continuing care to all relevant caregivers; and preparation of discharge records, prescriptions, and referral
forms if necessary.
Anticipated Discharge: Today
Subjective/Interval History
-
Date of Service: September 11, 2023
Seen and examined at bedside in no acute distress sitting up comfortably in chair. Denies new acute issues at this time. Reports feeling well. Exertional Dyspnea and swelling lower ext's improved. Denies new acute issues. Eager to go home.
Objective Data
-
Labs:
Laboratory Results
09/11/23
03:34
WBC 7.8
Hgb 11.4 L
Hct 34.1 L
Plt Count 229 D
Sodium 141
Potassium 3.4 L
Chloride 99
Carbon Dioxide 32 H
BUN 47 H
Creatinine 2.4 H
Glucose 112 H
Calcium 9.0
Vital Signs:
Vital Signs
Temp Pulse Resp BP Pulse Ox
97.7 F 91 20 117/61 98
09/11/23 03:21 09/11/23 03:20 09/11/23 03:21 09/11/23 03:20 09/11/23 03:21
I&O
09/10/23 09/11/23 09/12/23
06:59 06:59 06:59
Intake Total 1160 / 1160 720 / 720
Balance 1160 / 1160 720 / 720
[2023-09-11 07:48] VITALS: BP 111/59
[2023-09-11 08:43] VITALS: BP 125/57
[2023-09-11 08:57] VITALS: BP 125/57; PULSE 90; O2SAT 96
[2023-09-11] MEDS: ELIQUIS 2.5 MG PO (09:29)
[2023-09-11] MEDS: PACERONE 400 MG PO (09:29)
[2023-09-11] MEDS: PROTONIX 40 MG PO (09:29)
[2023-09-11] MEDS: EFFEXOR XR 75 MG PO (09:30)
[2023-09-11] MEDS: PLAVIX 75 MG PO (09:30)
[2023-09-11] MEDS: SENOKOT-S 1 TABLET PO (09:30)
[2023-09-11] MEDS: TOPROL XL 75 MG PO (09:30)
[2023-09-11] MEDS: LASIX 40 MG IV (09:31)
[2023-09-11] MEDS: KCL 20 MEQ PO (09:31)
[2023-09-11] MEDS: MIRALAX 17 GRAMS PO (09:31)
--- NOTE | 2023-09-11 10:35 | W.PN.NEPH.PH ---
Today's Communication / Plan
-
discharge
40mg daily of lasix (can increase as outpatient if needed)
Assessment/Plan
-
Assessment
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
Acute kidney injury
Atrial fibrillation a flutter
Heart failure preserved ejection fraction
Polymyalgia rheumatica
Coronary artery disease with recent LAD PCI
Interstitial lung disease
Plan:
Creatinine down to 2.4, uop not recorded accurately
c/f ADELFO vs. cardiorenal
Urine output not recorded but weights down
Restarted lasix 40mg IV BID.
She is not in respiratory distress but is developing swelling of the bilateral lower extremities
s/p cardioversion
Follow BMP
Discussed with patient, she is stable for discharge
will arrange follow up as outpatient
can discharge on 40mg lasix daily
-
-
Date of Service: September 11, 2023
CC / HPI / ROS
-
Chief Complaint:
CAMRON
History of Present Illness:
cardiac cath on and Cr continuing down to 2.4
Afib s/p cardioversion
Hemodynamically stable
Review of Systems:
overall feeling better
Weights down
No chest pain or shortness of breath
Labs
-
Labs:
WBC 7.8 10^3/uL (4.8-10.8) 09/11/23 03:34
RBC 3.63 10^6/uL (4.20-5.40) L 09/11/23 03:34
Hgb 11.4 g/dL (12.0-16.0) L 09/11/23 03:34
Hct 34.1 % (37.0-47.0) L 09/11/23 03:34
Plt Count 229 10^3/uL (130-400) D 09/11/23 03:34
Sodium 141 mmol/L (135-145) 09/11/23 03:34
Potassium 3.4 mmol/L (3.5-5.1) L 09/11/23 03:34
Chloride 99 mmol/L (98-107) 09/11/23 03:34
Carbon Dioxide 32 mmol/L (22-30) H 09/11/23 03:34
BUN 47 mg/dl (7-17) H 09/11/23 03:34
Creatinine 2.4 mg/dL (0.6-1.0) H 09/11/23 03:34
eGFR 19.07 09/11/23 03:34
Glucose 112 mg/dl (70-99) H 09/11/23 03:34
Calcium 9.0 mg/dl (8.4-10.2) 09/11/23 03:34
Phosphorus 4.3 mg/dl (2.5-4.5) 09/11/23 03:34
Hhh-C-Seiewfehvyo Pept 8750 pg/ml 09/09/23 03:49
Albumin 3.0 g/dl (3.5-5.0) L 09/06/23 04:31
Physical Exam
-
Vital Signs:
Vital Signs
Temp Pulse Resp BP Pulse Ox
98 F 99 20 125/57 96
09/11/23 07:46 09/11/23 09:30 09/11/23 07:46 09/11/23 09:30 09/11/23 10:04
Cardiovascular:: Regular rate and rhythm
Respiratory:: Bilateral: Coarse
Lung Excursion:: Normal
Abdomen:: Nontender and Soft
Bowel Sounds:: Normal
Extremity Edema:: +1: Bilateral:
Whitley Catheter: No
[2023-09-11 11:30] VITALS: BP 132/64
--- NOTE | 2023-09-11 13:16 | W.PN.CARDCBS ---
Addendum entered and electronically signed by Gisel Ocampo MD 09/11/23 15:29:
I saw and examined the patient.
The Business Process Engineer's note was reviewed and I agree with the note.
Comment:
Stable for discharge home. Continue current dose of medications. Continue oral anticoagulation.
She will call if she gains 3 pounds in 1 day or 5 pounds in 1 week. We discussed sodium and fluid restricted diet.
Follow-up in office.
Original Note:
Today's Communication / Plan
-
Home today on amiodarone 200 mg BID for 2 weeks then once daily thereafter plus higher dose Toprol XL 75 mg BID
Cont Eliquis 2.5 mg BID
Lasix 40 mg PO daily, can increase if needed
Impression / Plan
-
PCP: Wilbert Figueroa
Backend Java Developer: Dr. Santos
Impression:
Weight loss and dysphagia on admission 08/27/23
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
Newly diagnosed typical atrial flutter with RVR 08/27/23
s/p successful CV 09/08/23
recurrent Afib/flutter 09/09/23
Dyspnea on exertion
CAMRON
Elevated Troponin, likely NSTEMI
CAD
PCI LAD 2004 ([facility])
PCI RCA 07/2010 ([facility])
s/p OM stent 10/08/17 with residual 40% stenosis of mid LAD and 50-60% stenosis of prox PDA
s/p 2.5 mm Xience to mid LAD 09/04/23
Acute on chronic HFpEF
HTN
Hypertension
Mild peak/mean 22/13 mmHg and TAM 1.4 cm sq
HTN
Psoriatic arthritis
Polymyalgia rheumatica
Hyperlipidemia
Hx interstitial lung disease on chronic oxygen at night
Hypothyroidism
Anxiety
Fibromyalgia
Chronic dyspnea
Hx cervical radiculopathy
Statin intolerance
Hx left rotator cuff tear
Urethral stone w/ hydronephrosis 01/2018
Shingles 09/2022
Syncope 09/2022 in setting of GI illness/dehydration
Chronic pain syndrome on oxycodone daily
Echo 01/06/18:�Mild LVH, EF 50-55% possible lateral hypokinesis, normal RV, severely dilated LA, Mild to moderate MR, Mild aortic stenosis, peak/mean gradient 29/16, aortic valve area 1.6 cm�, Mild TR, pulmonary pressure 51-56 mmHg
Echo October 2018: Ejection fraction 60-65 percent, mild MR, mild , mild-moderate AI�������
Echo 07/2020: EF 60-65%, mild with MPG 14 mm Hg, TAM 1.7 cm2.
Echo 03/04/23:�EF 55-60% with mild MR, mild , aortic root 4 cm, trace pericardial effusion
Echo 06/04/23: EF 55 to 60%, mild concentric LVH, mild mitral stenosis with mean transmitral gradient 6 mmHg, moderate MR, mild peak/mean gradient 22/13 mmHg and TAM 1.4 cm sq, trace TR with pulmonary artery systolic pressure 26 mmHg mildly
dilated aortic root
Echo 08/29/2023: EF 40-45%, pleural effusion
Plan:
-Weight peaked at 172 lbs this admission and is down to 167 lbs on 09/11/23. Nephrology following and recommended Lasix 40 mg PO daily and can increase dose PRN as an outpatient.
-EF 40-45% by echo this admission, previously 55-60%. Patient had LAD PCI this admission and should have a repeat echo in 40 days.
-GDMT includes Toprol XL 75 mg BID.
-Plan is for Eliquis 2.5 mg BID (age 88, wt Cre 1.4, wt 75 kg) and Plavix 75 mg daily
-Right radial site with significant bruising to hand and forearm. A limited duplex of the RUE 09/05/23 reveals multiphasic waveforms in the right radial and ulnar arteries. A hematoma is identified measuring 1.7 cm x 0.6 cm x 1 cm.
-Patient also with new Afib/flutter this admission. Patient had CV 09/08/23 and then recurred with Afib/flutter 09/09/23. Plan is to load with amiodarone 200 mg BID for 2 weeks and then once daily thereafter. Patient received a 5.2 gram load of
amiodarone thus far as of 09/11/23 AM.
-Patient with abdominal pain and weight loss on admission. UGI series on 08/29/23 was read as presbyesophagus. �There were no intrinsic or extrinsic masses and no mucosal ulceration with no hiatal hernia or reflux.No additional work-up planned by GI.
-Plan is for d/c to home with VN. Will arrange for outpatient follow up.
HPI:
Patient came to ER from the cardiology office yesterday with new atrial flutter but also complains of weight loss and dysphagia, she is now admitted with plan for GI workup and cardiology has been consulted for ongoing atrial flutter. Patient
was seen by Dr. Santos in the office 08/27/2023 and had complaints including severe weakness and poor p.o. intake. He was found to be in atrial flutter with 2-1 block at rest. She has no history of atrial arrhythmia. She was sent to ER
thinking that she would need workup for her abdominal pain and weight loss. The patient has been seen by gastroenterology and the plan is for an upper GI series in the morning. She also had an abdominal ultrasound performed earlier today. In the
meantime she has remained in atrial flutter and is on a Cardizem drip at 5 mg/hr with HRs in the 80s to 90s and she denies any palpitations. She says she has ongoing dyspnea on exertion. Her troponin was elevated initially at 0.152 and trended
down thereafter. She has a history of CAD with previous LAD PCI in 2004, RCA PCI in 2010 and obtuse marginal stent in 2017. Her last ischemic evaluation was May 2018 that showed a small partially reversible inferolateral defect that was
improved from previous stress test.
Progress Note - Backend Java Developer
Subjective
Date of Service: September 11, 2023
She feels a bit better after BM
Objective
Labs:
09/11/23 03:34
09/11/23 03:34
Labs
Hgb 11.4 g/dL (12.0-16.0) L 09/11/23 03:34
Hct 34.1 % (37.0-47.0) L 09/11/23 03:34
Plt Count 229 10^3/uL (130-400) D 09/11/23 03:34
APTT 97.3 Sec (23.4-35.0) H 09/04/23 08:58
Sodium 141 mmol/L (135-145) 09/11/23 03:34
Potassium 3.4 mmol/L (3.5-5.1) L 09/11/23 03:34
BUN 47 mg/dl (7-17) H 09/11/23 03:34
Creatinine 2.4 mg/dL (0.6-1.0) H 09/11/23 03:34
Glucose 112 mg/dl (70-99) H 09/11/23 03:34
Vital Signs and I&O:
Vital Signs
Temp Pulse Resp BP Pulse Ox
97.5 F 90 20 132/64 97
09/11/23 11:27 09/11/23 12:00 09/11/23 11:27 09/11/23 11:30 09/11/23 11:27
Vital Signs
Temp Pulse Resp BP Pulse Ox
97.5 F 90 20 132/64 97
09/11/23 11:27 09/11/23 12:00 09/11/23 11:27 09/11/23 11:30 09/11/23 11:27
Intake & Output
09/09/23 09/10/23 09/11/23 09/12/23
06:59 06:59 06:59 06:59
Intake Total 720 / 720 1160 / 1160 720 / 720
Balance 720 / 720 1160 / 1160 720 / 720
Physical Exam
Physical Exam
General: NAD, AAO x3
HEENT: EOMI, MMM
Heart: Irreg irreg, no murmur
Lungs: CTA B/L without wheeze
Abd: +BS, soft
Ext: No B/L LE edema
Neuro: Nonfocal
[2023-09-11 14:49] VITALS: BP 116/57
--- NOTE | 2023-09-11 15:19 | W.DCSUMMARY ---
Discharge Summary
Discharge Data
Date of Admission: 08/27/23
Date of Discharge: 09/11/23
-
Pending Results: No
Hospital Course
88F CAD status post stents, HFpEF, mild , ILD on 2 L at bedtime, CKD3, HTN, HLD, hypothyroidism, PMR, Fibromyalgia, Psoriatic arthritis, Cervical Radiculopathy, Spinal Stenosis, Hiatal Hernia, Anxiety, suspected CKD3, hemorrhoid, presented from
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 Santos for new onset A-fib following routine visit.� No prior history of A-fib.� Endorsed exertional dyspnea several months and fatigue.� She also reported abd pain attacks that occur whenever she drinks liquids.� Pain
last 15 minutes and then subsides.� reported intermittent nausea denies vomiting.� Reported weight loss 20 pounds in the past 6 months with associate appetite loss.� New onset atrial fibrillation with RVR, Atrial flutter, status post IV Cardizem
drip and IV heparin drip, placed on metoprolol and Eliquis. Heart rate improved since amiodarone start 09/04. Cardiology performed JIAN cardioversion 09/07, initially successful, unfortunately soon converted back to afib/aflutter. Non-ST elevation
myocardial infarction, Coronary artery disease, stress test 09/01 concerning for ischemia,�cardiac catheterization 09/03�showed 70% stenosis of the mid LAD, partially in-stent restenosis
S/p PCI , patient completed 7 day triple therapy, ASA discontinued continues on Eliquis Plavix. Hospital course complicated with Acute on Chronic HFpEF with associated Acute Hypoxic Respiratory Failure required 5L since weaned off to room air
following diuresis- associate confusion likely Hospital associated delirium resolved as well. Cr rise following contrast use, lead to hold on diuresis due to concern ADELFO. As Cr continued to rise with increasing weight gain and exertional dyspnea,
this was later to be determined cardiorenal syndrome and patient subsequently improved with restart of Lasix. With regards to intermittent nausea vomiting abd pain patient was found to have Presbyesophagus/esophageal dysmotility on upper GI series.
Omeprazole and famotidine were continued. Abd US also noted fatty liver disease. No further inpatient GI procedures planned and GI recommended outpatient follow up. SPL evaluated and recommended regular solids, thin liquids, esophageal
precautions. Medically stable, patient was discharged home with home services and outpatient follow up recommendations.
Discharge Plan
-
Patient Disposition: Home with Home Care
Discharge Diagnosis/Procedures: NSTEMI, Angioplasty and stent to Left Anterior Descending artery, Presbyesophagus, Atrial Fibrillation/Flutter, Acute on Chronic Heart Failure Preserved Ejection Fraction, Hypertension, Hyperlipidemia, Psoriatic
Arthritis, Polymyalgia Rheumatica, Anxiety, Cervical radiculopathy, Hypothyroidism, Fatty Liver Disease
Condition: Good
Diet: Low Cholesterol and 2 Gram Sodium
Activity: Other activity
Additional Activity: See attached
Driving Restrictions: No driving for 24 hours
Bathing Restrictions: OK to Shower
Blood Work: Please repeat cbc and bmp with primary care provider in 1 week of discharge.
Other Services: Cardiac Rehab
Specialty Instructions: Weigh Daily- Call MD for wt gain/loss 3 lbs overnight/5 lbs in 1 week
Activity Restrictions/Additional Instructions:
Please follow up with primary care provider in 1 week of discharge and keep your appointment with Cardiology.
venlafaxine 75 mg capsule,extended release 24 hr 75 mg PO DAILY Depression
prednisone 5 mg tablet 5 mg PO QPM Inflammation
cholecalciferol (vitamin D3) 25 mcg (1,000 unit) tablet 1,000 units PO QPM Supplement
ezetimibe 10 mg tablet 10 mg PO QPM High cholesterol
famotidine 20 mg tablet 20 mg PO HS Gastrointestinal Issue
Simponi ARIA 1 dose IV Q8W psoriatic arthritis
therapeutic multivitamin 1 tab PO QPM Supplement
levothyroxine 75 mcg tablet 75 mcg PO DAILY AT 0700 Hypothyroidism
furosemide 40 mg tablet 40 mg PO DAILY Fluid retention/Swelling Heart Failure
metoprolol succinate 50 mg tablet,extended release 24 hr 50 mg PO BID Blood Pressure Heart Failure
amiodarone 200 mg tablet 200 mg PO BID for two weeks then dailly from then on, for Arrhythmia Atrial Fibrillation/Flutter
apixaban 2.5 mg tablet (Eliquis) 2.5 mg PO BID Stroke Risk reduction Atrial fibrillation/flutter
atorvastatin 40 mg tablet 40 mg PO QPM High cholesterol
clopidogrel 75 mg tablet 75 mg PO DAILY for coronary artery disease recent stent placement
pantoprazole 40 mg tablet,delayed release 40 mg PO DAILY Gastrointestinal issue
potassium chloride 20 mEq tablet,extended release(part/cryst) 20 meq PO DAILY potassium supplementation
Please take medications as prescribed/recommended and follow up with primary care provider and/or other healthcare provider involved in your care for refills and/or further adjustments to your medication regimen as necessary.
Stand Alone Forms: DC Instructions- Cath/EP Lab
Referrals:
[facility] [Outside]
Ligia Rubio PA-C [Specified Professional Personl] - 09/24/23 11:00 am
Wilbert Figueroa MD [Family Provider] - in one week
Additional Discharge Medication Instructions: -STOP taking aspirin
-STOP taking omeprazole, it has been replaced with pantoprazole due to interaction with Plavix (clopidogrel)
-Take amiodarone 200 mg twice a day for 2 weeks (until 09/25/23) then reduce to 200 mg once a day thereafter
Prescriptions:
New
pantoprazole 40 mg Tablet,Delayed Release (Dr/Ec)
40 mg PO DAILY Qty: 30 11RF
Eliquis 2.5 mg Tablet
2.5 mg PO BID Qty: 60 11RF
atorvastatin 40 mg Tablet
40 mg PO QPM Qty: 30 11RF
clopidogrel 75 mg Tablet
75 mg PO DAILY Qty: 30 11RF
potassium chloride 20 mEq Tablet,Er Particles/Crystals
20 meq PO DAILY Qty: 30 11RF
amiodarone 200 mg tablet
200 mg PO BID Qty: 28 0RF
amiodarone 200 mg tablet
200 mg PO DAILY Qty: 30 11RF
Continued
venlafaxine 75 MG capsule,extended release 24hr
75 mg PO DAILY
prednisone 5 MG tablet
5 mg PO QPM
Patient Comments:
cholecalciferol (vitamin D3) 1,000 UNITS tablet
1,000 units PO QPM
ezetimibe 10 MG tablet
10 mg PO QPM
famotidine 20 mg Tablet
20 mg PO HS
therapeutic multivitamin Tablet
1 tab PO QPM
Simponi ARIA
1 dose IV Q8W
levothyroxine 75 mcg Tablet
75 mcg PO DAILY AT 0700 30 Days Qty: 30 0RF
metoprolol succinate 50 mg tablet extended release 24 hr
50 mg PO BID
furosemide 40 mg tablet
40 mg PO DAILY
Discontinued
aspirin 81 MG tablet,delayed release (DR/EC)
81 mg PO HS
omeprazole 40 mg capsule,delayed release(DR/EC)
40 mg PO DAILY
oxycodone-acetaminophen 10-325 mg tablet
1 tab PO BID PRN (Reason: severe pain)
Patient Comments:
08/27/2023: last filled 08/12/23, 60 tabs for 30 days from [facility]
Discharge Orders:
Discharge Patient (As Directed); Ordered 09/11/23
Ordered By: Elvis Lawler
Care Plan Goals
Care Plan Goals:
Problem: Readiness for enhanced knowledge related to diagnosis and treatment plan
Goal: Understand your diagnosis and treatment plan needs, including medications if applicable.
Instructions: Know your diagnosis, underlying causes and treatment plan options, including medications if applicable. Consult with your health care team to learn about your diagnosis and treatment plan, including medications if applicable.
Discharge Date and Time
Discharge Date/Time: 09/11/23 17:09
--- NOTE | 2023-09-11 16:17 | PTCARENOTE ---
Discharge instructions provided to pt. Questions answered. Awaiting ride home.
== END 2023-09-11 17:09 | disposition home health service (06) | DRG 321 ==
LOC: IVU 18:59
PROVIDERS: Emergency Medicine; Family Medicine; Internal Medicine Cardiovascular Disease; Internal Medicine Interventional Cardiology; Nurse Practitioner; Nurse Practitioner Family; Physician Assistant Medical; ADMITTING PHYSICIAN Hospitalist; ATTENDING PHYSICIAN Internal Medicine; CONSULT PHYSICIAN Internal Medicine Gastroenterology; CONSULT PHYSICIAN Specialist; EMERGENCY PHYSICIAN Emergency Medicine; FAMILY PHYSICIAN Family Medicine; OTHER PHYSICIAN Nuclear Medicine Nuclear Cardiology
PROC: 3E033HZ Introduction of Radioactive Substance into Peripheral Vein, Percutaneous Approach (ICD-10-PCS; 2023-09-01)
PROC: 4A02XM4 Measurement of Cardiac Total Activity, External Approach (ICD-10-PCS; 2023-09-01)
PROC: B2111ZZ Fluoroscopy of Multiple Coronary Arteries using Low Osmolar Contrast (ICD-10-PCS; 2023-09-03)
PROC: B2151ZZ Fluoroscopy of Left Heart using Low Osmolar Contrast (ICD-10-PCS; 2023-09-03)
PROC: 4A023N7 Measurement of Cardiac Sampling and Pressure, Left Heart, Percutaneous Approach (ICD-10-PCS; 2023-09-03)
PROC: 4A033BC Measurement of Arterial Pressure, Coronary, Percutaneous Approach (ICD-10-PCS; 2023-09-04)
PROC: 027034Z Dilation of Coronary Artery, One Artery with Drug-eluting Intraluminal Device, Percutaneous Approach (ICD-10-PCS; 2023-09-04)
PROC: B24BZZ4 Ultrasonography of Heart with Aorta, Transesophageal (ICD-10-PCS; 2023-09-08)
PROC: 5A2204Z Restoration of Cardiac Rhythm, Single (ICD-10-PCS; 2023-09-08)
DX: I21.4 Non-ST elevation (NSTEMI) myocardial infarction (principal); I50.33 Acute on chronic diastolic (congestive) heart failure; J96.01 Acute respiratory failure with hypoxia; I13.0 Hypertensive heart and chronic kidney disease with heart failure and stage 1 through stage 4 chronic kidney disease, or unspecified chronic kidney disease; J84.9 Interstitial pulmonary disease, unspecified; N17.9 Acute kidney failure, unspecified; T82.855A Stenosis of coronary artery stent, initial encounter; D62 Acute posthemorrhagic anemia; F05 Delirium due to known physiological condition; I48.3 Typical atrial flutter; I25.10 Atherosclerotic heart disease of native coronary artery without angina pectoris; Y83.1 Surgical operation with implant of artificial internal device as the cause of abnormal reaction of the patient, or of later complication, without mention of misadventure at the time of the procedure; N18.32 Chronic kidney disease, stage 3b; E78.00 Pure hypercholesterolemia, unspecified; E03.9 Hypothyroidism, unspecified; M35.3 Polymyalgia rheumatica; M79.7 Fibromyalgia; I48.0 Paroxysmal atrial fibrillation; L40.50 Arthropathic psoriasis, unspecified; M54.12 Radiculopathy, cervical region; F41.9 Anxiety disorder, unspecified; K44.9 Diaphragmatic hernia without obstruction or gangrene; T50.1X5A Adverse effect of loop [high-ceiling] diuretics, initial encounter; R63.4 Abnormal weight loss; K21.00 Gastro-esophageal reflux disease with esophagitis, without bleeding; R13.10 Dysphagia, unspecified; I08.0 Rheumatic disorders of both mitral and aortic valves; K76.0 Fatty (change of) liver, not elsewhere classified; G89.4 Chronic pain syndrome; M81.0 Age-related osteoporosis without current pathological fracture; E66.09 Other obesity due to excess calories; G47.00 Insomnia, unspecified; K22.89 Other specified disease of esophagus; Z68.30 Body mass index [BMI] 30.0-30.9, adult; Z79.52 Long term (current) use of systemic steroids; Z79.82 Long term (current) use of aspirin; Z79.891 Long term (current) use of opiate analgesic; Z79.899 Other long term (current) drug therapy; Z87.11 Personal history of peptic ulcer disease; Z87.891 Personal history of nicotine dependence; Z95.5 Presence of coronary angioplasty implant and graft; Z98.1 Arthrodesis status; Z99.81 Dependence on supplemental oxygen
CPT/HCPCS: 93308; 36600; 71045; 71046; 74240; 76700; 76937; 78452; 80048; 80053; 82248; 82805; 82962; 83690; 83735; 83880; 84100; 84443; 84484; 85025; 85027; 85347; 85730; 92610; 92960; 93005; 93017; 93312; 93320; 93325; 93458; 93571; 93931; 93975; 94640; 96365; 96366; 96367; 96376; 97116; 97162; 97166; 97530; 97535; 99152; 99153; 99291; A9500; C1725; C1760; C1769; C1874; C1887; C1894; C9600; J2785; Q9967

== ENCOUNTER 2023-09-19 20:54 | Inpatient (IN) | payer MEDICARE, BC, SELFPAY ==
[2023-09-19 16:16] VITALS: BP 119/64
[2023-09-19 19:14] VITALS: BP 138/80
[2023-09-19 19:15] VITALS: BP 138/80
[2023-09-19 19:15] LABS: % Basophils 0.6 % (0-2); % Eosinophils 0.3 % (0-6); % Immature Granulocytes 0.7 % (0-0.5); % Lymphocytes 13.7 % (20.5-51.1); % Monocytes 6.9 % (1.7-9.3); % Neutrophils 77.8 % (42.2-75.2); Absolute Immature Granulocytes 0.1 10^3/uL (0-0.05); Absolute Monocytes 0.5 10^3/uL (0.1-0.6); Absolute Neutrophils 5.6 10^3/uL (1.4-6.5); Hematocrit 35.8 % (37.0-47.0); Hemoglobin 11.8 g/dL (12.0-16.0); Mean Corpuscular Hgb 31.1 pg (27.0-31.0); Mean Corpuscular Volume 94.5 fL (81.0-99.0); Mean Platelet Volume 10.2 fL (7.4-10.4); Nucleated Red Blood Cells % 0.4 %; Platelet Count 290 10^3/uL (130-400); Red Blood Cell Count 3.79 10^6/uL (4.20-5.40); Red Cell Dist. Width 14.8 % (11.5-14.5); White Blood Cell Count 7.2 10^3/uL (4.8-10.8)
[2023-09-19 19:33] LABS: ALT (SGPT) 44 U/L (0-35); AST (SGOT) 62 U/L (14-36); Albumin 3.7 g/dl (3.5-5.0); Alkaline Phosphatase 94 U/L (38-126); Blood Urea Nitrogen 46 mg/dl (7-17); Calcium 8.6 mg/dl (8.4-10.2); Carbon Dioxide 27 mmol/L (22-30); Chloride 102 mmol/L (98-107); Glucose 95 mg/dl (70-99); Potassium 4.6 mmol/L (3.5-5.1); Sodium 136 mmol/L (135-145); Total Bilirubin 1.3 mg/dl (0.2-1.3); Total Protein 6.7 g/dl (6.3-8.2)
[2023-09-19 19:47] LABS: NT-proBNP 12800 pg/ml; Troponin I 0.041 ng/ml
--- NOTE | 2023-09-19 19:52 | ED.GENMED ---
History of Present Illness
General
Chief Complaint: Breathing Problem
Source: patient and family
Exam Limitations: none
Time Seen by Provider: 09/19/23 18:10
Travel History
Have you had any contact with someone who has COVID-19?: No
Do you have any symptoms of coronavirus? Fever > 100 degrees, chills, cough, shortness of breath, sore throat, loss of taste or smell, muscle aches, or headache?: No
History of Present Illness
History of Present Illness:
Patient discharged about a week ago with CHF. Ongoing weakness fatigue shortness of breath. Sent in for admission by the primary corporate intern. Denies chest pain denies fever symptoms are moderate in nature
Past History
Past History
ED Past Medical History: CAD, CHF, Fibromyalgia, HTN, Hypercholesterolemia, Hypothyroidism, Other (Polymyalgia rheumatica, fatigue, psoriatic arthritis, chronic neck pain, Spinal stenosis, Ulcers, headache, PNA, Interstitial lung disease, Hiatal
hernia, ULcer) and Other (Interstitial lung disease for which she previously used O2 at nighttime--now resolved)
ED Past Surgical History: Cardiac (Stents X3), Cholecystectomy, Orthopedic (Back surgery. You Knee replacements, Laminectomy with fusion, right foot surgery, ) and Other (Hemorrhoidectomy)
Social History
Tobacco: Former smoker
Alcohol: Occasional
Drug: None
Personal:
Living: alone (Daughter staying with patient at this time 09/09/22)
Employment: Retired
Family History
Family History: Other (Noncontributory)
Phy Exam
Physical Exam
Physical Exam:
GENERAL: Alert and oriented. Chronically ill-appearing.
EYE: Orbits normal.
NECK: Supple
CARDIAC: Irregular irregular no murmur
LUNGS: Bibasilar Rales
ABDOMEN: Soft, without focal tenderness or distention
NEUROLOGICAL: Alert and oriented , grossly non-focal
SKIN: Warm and dry, large area of ecchymosis to both arms upper neck and legs.
MUSCULOSKELETAL: Chronic edema
PSYCH: Normal and appropriate interaction.
Scores
Heart Failure Risk
Heart Failure Risk Score: Yes
History of Stroke or TIA: No
History of intubation for respiratory distress: No
Heart rate on ED arrival >/= 110: No
SaO2 <90% on arrival on room air: No
HR >/=110 during 3min walk test (or too ill to perform test): No
ECG has acute ischemic changes: Yes
Urea >/=12mmol/L (BUN 33.6mg/dL): Yes
Serum CO2>/=35mmol/L: No
Troponin I or T elevated to OK Level (0.4mg/dL): No
NT-proBNP >/=5,000ng/L (5,000pg/ml): Yes
HF Risk Score: 4
Admission Status: HIGH RISK 26.1% Consider SNF treatment or admission to hospital
Course
Orders/Labs/Results
Orders:
Orders
09/19/23 18:17
Cardiac Monitoring- Treatment ONCE
IV Insert/Care/Rem.- Treatment PRN
Pulse Ox/cont/shift [RESP] Stat
Quantity: 1
09/19/23 18:18
Electrocardiogram (*1) Stat
Reason for Study: Other
Other Reason for Exam: chest pain
EKG- Treatment ONCE
CR Chest - 2 Views Urgent
Comment:
Reason For Exam: sob weak
09/19/23 19:07
Complete Blood Count/With Diff Urgent
Comprehensive Metabolic Panel Urgent
NT-proBNP Urgent
Troponin I Urgent
09/19/23 20:26
Admit/Transfer Patient As Directed
Co-Sign Provider:
Level of Care: Inpatient admission
Assign to:: Telemetry
Physician / Group: Hospitalist
Diagnosis: CHF exacerbation
Reason for Telemetry: Arrhythmia
Date to Stop Telemetry: 09/22/23
Time to Stop Telemetry: 11:00
Reason for Hospitalization: CHF exacetbation
Expected length of stay greater than two midnights?: Yes
ELOS- Estimated Length of Stay in days: 4
I certify the patient meets the requirements for IP care: Yes
09/19/23 20:28
Code Status As Directed
Resuscitation Status: Full Code
09/20/23 06:00
Lactic Acid IN AM
09/22/23 11:00
DC Protocol for Telemetry ONCE
Abnormal Lab Results
09/19/23
19:07
RBC 3.79 L 10^6/uL
(4.20-5.40)
Hgb 11.8 L g/dL
(12.0-16.0)
Hct 35.8 L %
(37.0-47.0)
MCH 31.1 H pg
(27.0-31.0)
RDW 14.8 H %
(11.5-14.5)
Abs Immat Gran (auto) 0.1 H 10^3/uL
(0-0.05)
Absolute Lymphs (auto) 1.0 L 10^3/uL
(1.2-3.4)
Immature Gran % 0.7 H %
(0-0.5)
Neutrophils % 77.8 H %
(42.2-75.2)
Lymphocytes % 13.7 L %
(20.5-51.1)
BUN 46 H mg/dl
(7-17)
Creatinine 2.9 H mg/dL
(0.6-1.0)
AST 62 H U/L
(14-36)
ALT 44 H U/L
(0-35)
Troponin I 0.041 H* ng/ml
09/19/23 19:07
09/19/23 19:07
Vital Signs
Initial and Last Documented VS:
Initial Vital Signs
Temp Pulse Resp BP Pulse Ox
97.8 F 95 18 119/64 97
09/19/23 16:16 09/19/23 16:16 09/19/23 16:16 09/19/23 16:16 09/19/23 16:16
Last Documented Vital Signs
Temp Pulse Resp BP Pulse Ox
97.8 F 91 20 138/80 94
09/19/23 16:16 09/19/23 20:45 09/19/23 20:45 09/19/23 19:15 09/19/23 20:45
MDM/Problems Addressed
Differential Diagnosis Includes:
Patient with general weakness ongoing CHF symptoms. proBNP elevated. Creatinine minimally elevated.
*Radiology
Radiology exam reviewed: radiology read reviewed (Bibasilar effusion and stable consolidations)
*Pulse Oximetry
Patient hypoxic: no
*EKG
Interpreted by ED Provider?: Yes
Interpretation: abnormal
Comparison EKG: no changes
Heart Rate: 101
Rate: tachycardiac
Rhythm: a-fib
[place]: normal axis
Interval: normal interval
QRS Pattern: normal QRS
Ischemia: non-specific ST changes
*Critical Care Note
Total Time (30-74mins, 75-104mins- exclusive of procedures): Not Applicable
Data Reviewed
Review of Other/Old Records Reveals: Labs, Records, Testing and Discharge Summary
Update Note
Update Note:
Patient with progression of weakness shortness of breath. proBNP elevated. X-ray stable. Admission for further care
ED Attending Note
-
Portions of this chart may have been created with voice recognition software.� Occasional wrong word or��sound alike� substitutions may have occurred due to the inherent limitations of voice recognition software.
Discharge Plan
Departure
Patient Disposition: Admit
Date of Disposition: 09/19/23
Time of Disposition: 19:55
Presentation/result/management discussed w/ accepting MD/DO: Hospitalist
Discharge Problem:
Ongoing CHF, Progressive renal insufficiency
Interventions
Interventions:
*ED COVID-19 Vaccine History Last Done: 09/19/23 16:16
ED- Cardiac Assessment Last Done: 09/19/23 20:26
ED- Pulmonary Assessment Last Done: 09/19/23 20:26
--- NOTE | 2023-09-19 20:33 | HPS.HSE ---
Family Physician
-
Family Physician: Wilbert Figueroa MD
Chief Complaint
-
SOB
History of Present Illness
88yo F with recent PCI, HFpEF, ILD, new onset Afib, CKD stage 3, HTN, HLD, hypothyroidism, PMR, spinal stenosis, anxiety, chronic respiratory failure oon 2L nocturnal O2 sent by transit bus operator with worsening dyspnea and LE swelling, in ED found b/l
pleural effusions with elevated proBNP. No chest pain noticed.
Also c/o intermittent postprandial abdominal dyscomfort
Medical History
Past Medical History
Past Medical History: Reports Other
Additional Past Medical History:
See HPI
Past Surgical History: Reports None
Social History
Tobacco: Non-smoker
Alcohol: None
Drug: None
Family History
Family History: Not pertinent
Allergies / Home Medications
Allergies reflects when Allergies were last updated in [employer].
Home Medications with original date entered in [employer]
Allergy/Medication List:
Allergies
Allergy/AdvReac Type Severity Reaction Status Date / Time
hydroxychloroquine sulfate Allergy Rash Verified 09/19/23 16:21
[From Plaquenil]
Penicillins Allergy Itching Verified 09/19/23 16:21
Home Medications
venlafaxine 75 mg capsule,extended release 24 hr 75 mg PO DAILY Depression 12/09/17
prednisone 5 mg tablet 5 mg PO QPM INFLAMMATION 01/05/18
cholecalciferol (vitamin D3) 25 mcg (1,000 unit) tablet 1,000 units PO QPM Supplement 08/11/18
ezetimibe 10 mg tablet 10 mg PO QPM High cholesterol 08/11/18
famotidine 20 mg tablet 20 mg PO HS Gastrointestinal Issue 03/03/23
Simponi ARIA 1 dose IV Q8W psoriatic arthritis 06/03/23
therapeutic multivitamin 1 tab PO QPM Supplement 06/03/23
levothyroxine 75 mcg tablet 75 mcg PO DAILY AT 0700 30 days #30 tabs 06/06/23
furosemide 40 mg tablet 40 mg PO DAILY Fluid retention/Swelling 08/27/23
metoprolol succinate 50 mg tablet,extended release 24 hr 50 mg PO BID Blood Pressure 08/27/23
amiodarone 200 mg tablet 200 mg PO BID Arrhythmia #28 tabs 09/11/23
apixaban 2.5 mg tablet (Eliquis) 2.5 mg PO BID Blood clot prevention/tx #60 tabs 09/11/23
atorvastatin 40 mg tablet 40 mg PO QPM High cholesterol #30 tabs 09/11/23
clopidogrel 75 mg tablet 75 mg PO DAILY Heart disease/condition #30 tabs 09/11/23
pantoprazole 40 mg tablet,delayed release 40 mg PO DAILY Gastrointestinal issue #30 tabs 09/11/23
potassium chloride 20 mEq tablet,extended release(part/cryst) 20 meq PO DAILY Electrolyte Repletion #30 tabs 09/11/23
Review of Systems
-
A 12 point ROS was completed and negative except as noted: Yes
Respiratory: Reports See HPI
Physical Exam
Vital Signs
Vital Signs
Temp Pulse Resp BP Pulse Ox
97.8 F 105 28 138/80 98
09/19/23 16:16 09/19/23 19:15 09/19/23 19:15 09/19/23 19:15 09/19/23 19:15
Physical Exam
General: No Apparent Distress
HEENT: Moist mucous membranes
Respiratory: Crackles
Cardiac: S1/S2 and Irregular Rhythm
GI: Soft, Non Tender and Non Distended
Musculoskeletal: No Clubbing, No Cyanosis, Edema, Left Lower Extremity and Edema, Right Lower Extremity
Skin: Warm; No Dry or Rash
Neuro: Awake, Alert, Oriented and AO x 3
Hematologic/Lymphatic: No Lymphadenopathy
Psych: Calm
Laboratory Results
-
09/19/23 19:07
09/19/23 19:07
Laboratory Results
Total Bilirubin 1.3 mg/dl (0.2-1.3) 09/19/23 19:07
AST 62 U/L (14-36) H 09/19/23 19:07
ALT 44 U/L (0-35) H 09/19/23 19:07
Alkaline Phosphatase 94 U/L (38-126) 09/19/23 19:07
Troponin I 0.041 ng/ml H* 09/19/23 19:07
Data Reviewed
-
Diagnostic Radiology: Report Reviewed by me
Impression/Plan
-
#Acute on chronic hypoxic respiratory failure 2/2 acute on chronic HFpEF exacerbation
#Poor Afib (unspecified) control
#CAD s/p PCI on 09/03/23
O2 had to be increased to 3L in ED. Afib also most likely contributing with decreased CO
Lasix, daily weight, I&O abnc cardiology to follow
Eliquis to cont
Amiodarone to cont
wean off to home O2
#Bilateral pleural effusions with R>L and concern for underlying consolidation on XR
most likely with absent cough, fever and leukocytosis - atelectasis
If Lasix will not assist in decreasing effusion - might need IRAD for thoracentesis
Check CT chest
#HLD
#Hypothyroidism
#CKD stage 3b
#SPinal stenosis
#PMR
cont home meds
check TSH
#Chronic trnasaminitis most likely 2/2 fatty liver
#Intermitent postprandial pain
check lactate
Was ebvaluated by GI on 08/29/23 - PPI and outpatient follow up recommended with PMHx of weightloss
DVT ppx - on Eliquis
Full code
This encounter required high level of complexity for medical decision making
[2023-09-19] MEDS: PEPCID 20 MG PO (22:13)
--- NOTE | 2023-09-19 22:41 | PTCARENOTE ---
Pt. admitted from E.D., AAO x 3, vs stable, a-fib on monitor, call valdes within reach.
[2023-09-19 23:00] VITALS: BP 108/71
[2023-09-20] MEDS: SYNTHROID 75 MCG PO (05:39)
[2023-09-20 07:07] VITALS: BP 114/71
--- NOTE | 2023-09-20 08:23 | CON.CAR ---
Consultation
Consultation Request
Date/Time Consultation Requested: 09/20/23
Date/Time Consultation Performed: 09/20/23
Requesting Provider: Dr. Onofre
Performing Provider: Dr. Pinead
Reason for Consultation: generalized weakness; SOB/LOVELACE
Medical History
-
Chief Complaint: SOB/LOVELACE
History of Present Illness:
I had the pleasure to see Leigh in room 415-2. She was recently hospitalized 08/27-09/11/23. As you know, she is an 88F with CAD status post stents, HFpEF, mild , ILD on 2 L at bedtime, CKD3, HTN, HLD, hypothyroidism, PMR, Fibromyalgia, Psoriatic
arthritis, Cervical Radiculopathy, Spinal Stenosis, Hiatal Hernia, Anxiety, suspected CKD3, hemorrhoid who follows with Dr. Santos. At the time of her last hospitalization, she was sent from the office with new onset atrial flutter/fibrillation
and exertional dyspnea several months and fatigue.� She is also reporting liquid dysphagia and pain as well as 20 pound weight loss over the last 6 months. Troponins were mildly elevated with new mild left ventricular dysfunction and EF on
echocardiogram 40-45%. A subsequent Lexiscan stress test showed possible anterior and base to mid lateral ischemia with a fixed apical defect and she was referred for cardiac catheterization. Cardiac catheterization August 26, 2023��noting long
area up to 70% stenosis in mid LAD with partial in-stent restenosis, eccentric 60 to 70% mid OM2 stenosis and 40 to 50% OM1 in-stent restenosis.� The distal RCA stent patent with a 50 to 60% stenosis in the proximal RPDA beyond the stented segment.
She returned to [facility], 2023 for staged revascularization with successful percutaneous coronary artery intervention of 70% mid LAD (in setting of anterior ischemia on recent Lexiscan MIBI) with a 2.5 x 33 mm Xience mary point
drug-eluting stent, successfully postdilated with a 2.75 x 20 mm NC balloon at 18 jean-paul distally and a 3.0 x 15 mm NC balloon at 18 jean-paul proximally with an excellent angiographic result.� The proximal OM was IFR negative. She completed 1 week of
triple therapy and was transition to Plavix and Eliquis 2.5 mg twice daily. She then had a JIAN/cardioversion 09/09/2023 which was transiently successful despite amiodarone. Her hospitalization was also complicated by worsening renal insufficiency
thought to be related to ADELFO and heart failure. During this hospitalization she was also seen by GI diagnosed with Presbyesophagus/esophageal dysmotility on upper GI series with recommendation for omeprazole and famotidine were continued. She
declined care home rehab and was discharged home on 09/11/2023.� She was seen in the office by our nurse practitioner on Friday and reported feeling poorly with ongoing abdominal discomfort and occasional nausea/ vomiting as well as daily
diarrhea x 2 days along with profound general weakness. She reports that she has not been able to take solid food for approximately 5 days however has been able to keep down broth, Jell-O and applesauce. She also reports palpitations, dizziness
and shortness of breath with minimal activity. She denies chest pain or pressure. She denies interruption of Plavix or Eliquis. She continues to report feeling poorly but denies current abdominal pain or nausea. No chest pain. No palpitations
at the moment. Ankle edema at home which has improved overnight. No recent fevers or cough.
Past medical history:
Weight loss and dysphagia on admission 08/27/23
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
Newly diagnosed typical atrial flutter with RVR 08/27/23
s/p successful CV 09/08/23
recurrent Afib/flutter 09/09/23Dyspnea on exertion
CAMRON
Elevated Troponin, likely NSTEMI
CAD
PCI LAD 2004 ([facility])
PCI RCA 07/2010 ([facility])
s/p OM stent 10/08/17 with residual 40% stenosis of mid LAD and 50-60% stenosis of prox PDA
s/p 2.5 mm Xience to mid LAD 09/04/23Acute on chronic HFpEF
HTN
Hypertension
Mild peak/mean 22/13 mmHg and TAM 1.4 cm sq
HTN
Psoriatic arthritis
Polymyalgia rheumatica
Hyperlipidemia
Hx interstitial lung disease on chronic oxygen at night
Hypothyroidism
Anxiety
Fibromyalgia
Chronic dyspnea
Hx cervical radiculopathy
Statin intolerance
Hx left rotator cuff tear
Urethral stone w/ hydronephrosis 01/2018
Shingles 09/2022
Syncope 09/2022 in setting of GI illness/dehydration
Chronic pain syndrome on oxycodone daily
Echo 01/06/18:�Mild LVH, EF 50-55% possible lateral hypokinesis, normal RV, severely dilated LA, Mild to moderate MR, Mild aortic stenosis, peak/mean gradient 29/16, aortic valve area 1.6 cm�, Mild TR, pulmonary pressure 51-56 mmHg
Echo October 2018: Ejection fraction 60-65 percent, mild MR, mild , mild-moderate AI�������
Echo 07/2020: EF 60-65%, mild with MPG 14 mm Hg, TAM 1.7 cm2.
Echo 03/04/23:�EF 55-60% with mild MR, mild , aortic root 4 cm, trace pericardial effusion
Echo 06/04/23: EF 55 to 60%, mild concentric LVH, mild mitral stenosis with mean transmitral gradient 6 mmHg, moderate MR, mild peak/mean gradient 22/13 mmHg and TAM 1.4 cm sq, trace TR with pulmonary artery systolic pressure 26 mmHg mildly
dilated aortic root
Echo 08/29/2023: EF 40-45%, pleural effusion
Past Medical History
Past Medical History: Other (See HPI)
Past Surgical History: Other (See HPI)
Social History
Tobacco: Former Smoker
Alcohol: None
Drug: None
Living: With Family
Employment: Retired
Family History
Family History: Reviewed & Not Pertinent
Allergies / Home Medications
Allergy/AdvReac Type Severity Reaction Status Date / Time
hydroxychloroquine sulfate Allergy Rash Verified 09/19/23 16:21
[From Plaquenil]
Penicillins Allergy Itching Verified 09/19/23 16:21
Medication Instructions Recorded Confirmed Type
venlafaxine 75 mg capsule,extended 75 mg PO DAILY Depression 12/09/17 09/19/23 History
release 24 hr
prednisone 5 mg tablet 5 mg PO QPM INFLAMMATION 01/05/18 09/19/23 History
cholecalciferol (vitamin D3) 25 1,000 units PO QPM Supplement 08/11/18 09/19/23 History
mcg (1,000 unit) tablet
ezetimibe 10 mg tablet 10 mg PO QPM High cholesterol 08/11/18 09/19/23 History
famotidine 20 mg tablet 20 mg PO HS Gastrointestinal Issue 03/03/23 09/19/23 History
Simponi ARIA 1 dose IV Q8W psoriatic arthritis 06/03/23 09/19/23 History
therapeutic multivitamin 1 tab PO QPM Supplement 06/03/23 09/19/23 History
levothyroxine 75 mcg tablet 75 mcg PO DAILY AT 0700 30 days 06/06/23 09/19/23 Rx
#30 tabs
furosemide 40 mg tablet 40 mg PO DAILY Fluid 08/27/23 09/19/23 History
retention/Swelling
metoprolol succinate 50 mg 50 mg PO BID Blood Pressure 08/27/23 09/19/23 History
tablet,extended release 24 hr
amiodarone 200 mg tablet 200 mg PO BID Arrhythmia #28 tabs 09/11/23 09/19/23 Rx
apixaban 2.5 mg tablet (Eliquis) 2.5 mg PO BID Blood clot 09/11/23 09/19/23 Rx
prevention/tx #60 tabs
atorvastatin 40 mg tablet 40 mg PO QPM High cholesterol #30 09/11/23 09/19/23 Rx
tabs
clopidogrel 75 mg tablet 75 mg PO DAILY Heart 09/11/23 09/19/23 Rx
disease/condition #30 tabs
pantoprazole 40 mg tablet,delayed 40 mg PO DAILY Gastrointestinal 03/07/24 03/15/24 Rx
release issue #30 tabs
potassium chloride 20 mEq 20 meq PO DAILY Electrolyte 09/11/23 09/19/23 Rx
tablet,extended release(part/cryst) Repletion #30 tabs
Review of Systems
-
History Source: Patient
Constitutional: Weight Gain, Fatigue and Sleep Disturbance
EENT: No Symptoms
Respiratory: Cough and Trouble Breathing
Cardiac: Palpitations
Abdomen/GI: Abdominal Pain, Nausea, Vomiting, Diarrhea and Anorexia
: No Symptoms
Musculoskeletal: Joint Pain (Chronic), Muscle Pain (Chronic) and Edema
Neurological: Dizzy and Weakness
Hematologic/Lymphatic: No Symptoms
Physical Exam
Vital Signs
Temp Pulse Resp BP Pulse Ox
97.6 F 100 20 108/71 92
09/19/23 23:00 09/19/23 23:00 09/19/23 23:00 09/19/23 23:00 09/19/23 23:00
Lab Results
Troponin I 0.041 ng/ml H* 09/19/23 19:07
Cjp-K-Zwbxyglnfui Pept 47784 pg/ml 09/19/23 19:07
Physical Exam
General: Well Developed, Well Nourished and Comfortable
HEENT: Normocephalic, Anicteric and Moist Mucous Membranes
Respiratory: Other (Bronchovesicular breath sounds with fine crackles bilaterally)
Cardiac: S1/S2, Irregular Rhythm, Murmur (2/6 SM) and Peripheral Edema; Negative Rub
GI: Soft, Non Tender, Non Distended and Normal Bowel Sounds
Neuro: AO x 3, No Motor Deficits and Nonfocal/Grossly Intact
Psych: Calm
Impression / Plan
-
Percussion Instrument Tuner: Dr. Santos
Impression:
Profound generalized weakness
Anorexia with reported nausea/vomiting and diarrhea for several days
Weight loss and dysphagia on admission 08/27/23
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
Newly diagnosed typical atrial flutter with RVR 08/27/23
s/p transiently successful CV 09/08/23
recurrent Afib/flutter 09/09/23Dyspnea on exertion
Amiodarone initiated 09/05/2023 status post load
Eliquis initiated 09/05/2023
Acute on chronic renal insufficiency; recent ADELFO
CAD/recent non-STEMI with abnormal Lexiscan nuclear stress test 09/01/2023
PCI LAD 2004 ([facility])
PCI RCA 07/2010 ([facility])
s/p OM stent 10/08/17 with residual 40% stenosis of mid LAD and 50-60% stenosis of prox PDA
s/p 2.5 mm Xience to mid LAD 09/04/23Acute on chronic HFpEF
HTN
Hypertension
Mild peak/mean 22/13 mmHg and TAM 1.4 cm sq
HTN
Psoriatic arthritis
Polymyalgia rheumatica
Hyperlipidemia
Hx interstitial lung disease on chronic oxygen at night
Hypothyroidism
Anxiety
Fibromyalgia
Chronic dyspnea
Hx cervical radiculopathy
Statin intolerance
Hx left rotator cuff tear
Urethral stone w/ hydronephrosis 01/2018
Shingles 09/2022
Syncope 09/2022 in setting of GI illness/dehydration
Chronic pain syndrome on oxycodone daily
Echo 01/06/18:�Mild LVH, EF 50-55% possible lateral hypokinesis, normal RV, severely dilated LA, Mild to moderate MR, Mild aortic stenosis, peak/mean gradient 29/16, aortic valve area 1.6 cm�, Mild TR, pulmonary pressure 51-56 mmHg
Echo October 2018: Ejection fraction 60-65 percent, mild MR, mild , mild-moderate AI�������
Echo 07/2020: EF 60-65%, mild with MPG 14 mm Hg, TAM 1.7 cm2.
Echo 03/04/23:�EF 55-60% with mild MR, mild , aortic root 4 cm, trace pericardial effusion
Echo 06/04/23: EF 55 to 60%, mild concentric LVH, mild mitral stenosis with mean transmitral gradient 6 mmHg, moderate MR, mild peak/mean gradient 22/13 mmHg and TAM 1.4 cm sq, trace TR with pulmonary artery systolic pressure 26 mmHg mildly
dilated aortic root
Echo 08/29/2023: EF 40-45%, pleural effusion
Plan:
Acute on chronic hypoxic respiratory failure 2/2 acute on chronic HFmEF exacerbation (Chronically on 2L)
-Appears to be responding well with IV Lasix
-Plan per primary for CT chest to further evaluate left-sided opacity and pleural effusions. If pleural effusions more significant, consider IR thoracentesis
- ? Aspiration
-No indication to repeat echocardiogram at this time
Recently diagnosed persistent atrial flutter with failed cardioversion 09/08/2023 on amiodarone
-Blood pressures are borderline and may limit ability for rate control
-QTc mildly prolonged and will reduce amiodarone to 200 mg once daily
-Patient reports difficulty with swallowing pills with ongoing nausea vomiting. Will change metoprolol succinate to Lopressor and monitor heart rate trends
-Continue anticoagulation with Eliquis, renally dosed
Chronic renal insufficiency, creatinine slightly worse now 3
-Continue to avoid nephrotoxic agents
-Monitor closely with diuresis
-Consider reinvolvement of nephrology
Reports ongoing weight loss, anorexia with nausea vomiting and abdominal pain
-Will defer to primary. Consider GI reevaluation
Profound weakness status post recent prolonged hospitalization and procedures
-PT evaluation-strongly and if qualifies would strongly advise inpatient care home rehab
Multivessel coronary artery disease status post non-STEMI with recent staged revascularization
-No chest pain or pressure; Mildly elevated troponin consistent with nonischemic myocardial injury
-Continue Plavix in addition to Eliquis
-Continue Zetia/atorvastatin
-Continue to optimize goal-directed medical therapy as able.
will follow with you
Data Reviewed
-
EKG: Report Reviewed by me
Radiology: Report Reviewed by me
Medical Tests (Nuc Med, Echo etc): Report Reviewed by me
Labs: Labs Reviewed by me
Old Records: Reviewed
[2023-09-20] MEDS: TOPROL XL 50 MG PO ×2 (08:26→20:14)
[2023-09-20] MEDS: PROTONIX 40 MG PO (08:26)
[2023-09-20] MEDS: PACERONE 200 MG PO (08:26)
[2023-09-20] MEDS: PLAVIX 75 MG PO (08:26)
[2023-09-20] MEDS: LASIX 40 MG IV (08:26)
[2023-09-20] MEDS: EFFEXOR XR 75 MG PO (08:30)
[2023-09-20] MEDS: ELIQUIS 2.5 MG PO ×2 (08:30→20:14)
[2023-09-20 08:51] LABS: % Basophils 0.7 % (0-2); % Immature Granulocytes 0.4 % (0-0.5); % Lymphocytes 18.7 % (20.5-51.1); % Monocytes 9.8 % (1.7-9.3); % Neutrophils 69.4 % (42.2-75.2); Absolute Basophils 0.1 10^3/uL (0-0.2); Absolute Eosinophils 0.1 10^3/uL (0-0.7); Absolute Lymphocytes 1.4 10^3/uL (1.2-3.4); Absolute Monocytes 0.8 10^3/uL (0.1-0.6); Absolute Neutrophils 5.3 10^3/uL (1.4-6.5); Hematocrit 34.1 % (37.0-47.0); Mean Corp Hgb Conc. 32.3 g/dL (33.0-37.0); Mean Corpuscular Hgb 31.2 pg (27.0-31.0); Mean Corpuscular Volume 96.6 fL (81.0-99.0); Mean Platelet Volume 10.4 fL (7.4-10.4); Nucleated Red Blood Cells % 0.4 %; Platelet Count 257 10^3/uL (130-400); Red Blood Cell Count 3.53 10^6/uL (4.20-5.40); Red Cell Dist. Width 14.8 % (11.5-14.5); White Blood Cell Count 7.6 10^3/uL (4.8-10.8)
[2023-09-20 09:05] LABS: Lactic Acid 1.6 mmol/L (0.7-2.0)
[2023-09-20 09:38] LABS: ALT (SGPT) 44 U/L (0-35); AST (SGOT) 53 U/L (14-36); Albumin 3.4 g/dl (3.5-5.0); Alkaline Phosphatase 106 U/L (38-126); Blood Urea Nitrogen 50 mg/dl (7-17); Calcium 8.7 mg/dl (8.4-10.2); Carbon Dioxide 29 mmol/L (22-30); Chloride 100 mmol/L (98-107); Glucose 73 mg/dl (70-99); Magnesium 2.2 mg/dl (1.6-2.3); Potassium 4.1 mmol/L (3.5-5.1); Sodium 137 mmol/L (135-145); eGFR 14.59
[2023-09-20 09:57] LABS: TSH 5.35 uIU/ml (0.47-4.68)
[2023-09-20 11:01] LABS: Troponin I 0.048 ng/ml
[2023-09-20 11:10] VITALS: BP 136/73
--- NOTE | 2023-09-20 12:51 | CM ---
logistics account manager reviewed patient's chart and met with patient and patient lives alone in a one story home with one step to enter, patient is independent with adl's and uses a cane with ambulation, patient has one step to enter, patient has home oxygen
at night from [facility]. Patient drives, patient has a prescription plan and uses [facility] pharmacy. Patient is current with [facility].
PCP: Dr. Figueroa
Plan; Home with [facility].
--- NOTE | 2023-09-20 14:29 | W.PN.HOSP.TC ---
Today's Communication/Plan
-
iv lasix
incentive mansoor
Assessment / Plan
Assessment / Plan
Physical Exam
General: No Apparent Distress
HEENT: Moist mucous membranes
Respiratory: Crackles
Cardiac: S1/S2 and Irregular Rhythm
GI: Soft, Non Tender and Non Distended
Musculoskeletal: No Clubbing, No Cyanosis, Edema, Left Lower Extremity and Edema, Right Lower Extremity
Skin: Warm; No Dry or Rash
Neuro: Awake, Alert, Oriented and AO x 3
Hematologic/Lymphatic: No Lymphadenopathy
Psych: Calm
#Acute on chronic hypoxic respiratory failure 2/2 acute on chronic HFpEF exacerbation (Chronically on 2L)
#Poor Afib (unspecified)� control
#CAD s/p PCI on 09/03/23
back to 2L
Cont IV Lasix, daily weight, I&O, cardiology to follow
Eliquis to cont
Amiodarone to cont
#Bilateral pleural effusions with R>L
-most likely 2/2 to acute CHF + atelectasis - less likely pneumonia as afebrile, no cough, febrile episodes
If Lasix will not assist in� decreasing effusion - might need IRAD for thoracentesis
-cont diuresis
#Non-Ischemic Myocardial Injury
-2/2 to acute chf and afib
-no chest pain
-cards consulted
#HLD
#Hypothyroidism, f/u free t4
#CKD stage 3b
#Spinal stenosis
#PMR
cont home meds
#Chronic transaminitis most likely 2/2 fatty liver
#Intermittent postprandial pain
Was ebvaluated by GI on 08/29/23 - PPI and outpatient follow up recommended with PMHx of weightloss
DVT ppx - on Eliquis
Full code
Anticipated Discharge: > 48 hours
Subjective/Interval History
-
Date of Service: September 20, 2023
No acute vents
Objective Data
-
Labs:
Laboratory Results
09/20/23
07:44
WBC 7.6
Hgb 11.0 L
Hct 34.1 L
Plt Count 257
Sodium 137
Potassium 4.1
Chloride 100
Carbon Dioxide 29
BUN 50 H
Creatinine 3.0 H
Glucose 73
Calcium 8.7
Total Bilirubin 1.0
AST 53 H
ALT 44 H
Alkaline Phosphatase 106
Vital Signs:
Vital Signs
Temp Pulse Resp BP Pulse Ox
97.8 F 83 16 136/73 99
09/20/23 11:10 09/20/23 11:10 09/20/23 11:10 09/20/23 11:10 09/20/23 11:10
I&O
09/19/23 09/20/23 09/21/23
06:59 06:59 06:59
Intake Total 120 / 120
Balance 120 / 120
Review of Systems
-
EENT: Denies Sore Throat
Respiratory: Denies Cough or Trouble Breathing
Cardiac: Denies Chest Pain
Abdomen/GI: Denies Abdominal Pain, Nausea, Vomiting or Diarrhea
Genitourinary: Denies Dysuria or Frequency
Neuro: Denies Headache
Data Reviewed
-
CT Scan: Image personally visualized and interpreted and Report Reviewed by me
Labs: Labs Reviewed by me
[2023-09-20 15:25] VITALS: BP 124/71
[2023-09-20 17:13] VITALS: BMI 30.4
[2023-09-20] MEDS: ZETIA 10 MG PO (17:43)
[2023-09-20] MEDS: LIPITOR 40 MG PO (17:43)
[2023-09-20] MEDS: DELTASONE 5 MG PO (17:43)
[2023-09-20 19:00] VITALS: BP 102/70
[2023-09-20] MEDS: PEPCID 20 MG PO (20:15)
[2023-09-20 23:00] VITALS: BP 95/60
[2023-09-21 03:00] VITALS: BP 132/82
[2023-09-21 03:40] VITALS: BMI 30.2
[2023-09-21] MEDS: SYNTHROID 75 MCG PO (05:28)
[2023-09-21 07:05] VITALS: BP 114/73
[2023-09-21 07:27] LABS: Hematocrit 33.6 % (37.0-47.0); Hemoglobin 11.1 g/dL (12.0-16.0); Mean Corpuscular Hgb 31.4 pg (27.0-31.0); Mean Corpuscular Volume 94.9 fL (81.0-99.0); Mean Platelet Volume 10.3 fL (7.4-10.4); Platelet Count 241 10^3/uL (130-400); Red Blood Cell Count 3.54 10^6/uL (4.20-5.40); Red Cell Dist. Width 14.5 % (11.5-14.5); White Blood Cell Count 7.7 10^3/uL (4.8-10.8)
[2023-09-21] MEDS: TOPROL XL 50 MG PO ×2 (07:59→20:19)
[2023-09-21] MEDS: PLAVIX 75 MG PO (07:59)
[2023-09-21] MEDS: PACERONE 200 MG PO (07:59)
[2023-09-21 08:00] LABS: ALT (SGPT) 44 U/L (0-35); AST (SGOT) 47 U/L (14-36); Albumin 3.2 g/dl (3.5-5.0); Alkaline Phosphatase 97 U/L (38-126); Blood Urea Nitrogen 46 mg/dl (7-17); Calcium 8.3 mg/dl (8.4-10.2); Carbon Dioxide 28 mmol/L (22-30); Chloride 104 mmol/L (98-107); Estimated Creatinine Clearance 13 ml/min; Glucose 95 mg/dl (70-99); Magnesium 2.3 mg/dl (1.6-2.3); Potassium 3.8 mmol/L (3.5-5.1); Sodium 138 mmol/L (135-145); Total Protein 5.9 g/dl (6.3-8.2); eGFR 15.85
[2023-09-21] MEDS: EFFEXOR XR 75 MG PO (08:00)
[2023-09-21] MEDS: PROTONIX 40 MG PO (08:00)
[2023-09-21] MEDS: LASIX 40 MG IV ×2 (08:00→16:43)
[2023-09-21] MEDS: ELIQUIS 2.5 MG PO ×2 (08:00→20:19)
--- NOTE | 2023-09-21 10:37 | PTCARENOTE ---
Assumed care of pt from previous nurse, pt denies pain. Pt reports being weak, deconditioned. Pt is on tele running afib. Lungs are diminished, 98% on 2L's. Pt call valdes is within reach, pt rings olga. will cont to monitor.
[2023-09-21 10:57] VITALS: BP 117/66
--- NOTE | 2023-09-21 11:49 | W.PN.CARDCBS ---
Today's Communication / Plan
-
Increase lasix frequency to BID
Monitor renal function closely
Impression / Plan
-
Circuit Board Drafter: Dr. Santos
Impression:
Profound generalized weakness
Anorexia with reported nausea/vomiting and diarrhea for several days
Weight loss and dysphagia on admission 08/27/23
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
Newly diagnosed typical atrial flutter with RVR 08/27/23
s/p transiently successful CV 09/08/23
recurrent Afib/flutter 09/09/23Dyspnea on exertion
Amiodarone initiated 09/05/2023 status post load
Eliquis initiated 09/05/2023
Acute on chronic renal insufficiency; recent ADELFO
CAD/recent non-STEMI with abnormal Lexiscan nuclear stress test 09/01/2023
PCI LAD 2004 ([facility])
PCI RCA 07/2010 ([facility])
s/p OM stent 10/08/17 with residual 40% stenosis of mid LAD and 50-60% stenosis of prox PDA
s/p 2.5 mm Xience to mid LAD 09/04/23Acute on chronic HFpEF
HTN
Hypertension
Mild peak/mean 22/13 mmHg and TAM 1.4 cm sq
HTN
Psoriatic arthritis
Polymyalgia rheumatica
Hyperlipidemia
Hx interstitial lung disease on chronic oxygen at night
Hypothyroidism
Anxiety
Fibromyalgia
Chronic dyspnea
Hx cervical radiculopathy
Statin intolerance
Hx left rotator cuff tear
Urethral stone w/ hydronephrosis 01/2018
Shingles 09/2022
Syncope 09/2022 in setting of GI illness/dehydration
Chronic pain syndrome on oxycodone daily
Echo 01/06/18:�Mild LVH, EF 50-55% possible lateral hypokinesis, normal RV, severely dilated LA, Mild to moderate MR, Mild aortic stenosis, peak/mean gradient 29/16, aortic valve area 1.6 cm�, Mild TR, pulmonary pressure 51-56 mmHg
Echo October 2018: Ejection fraction 60-65 percent, mild MR, mild , mild-moderate AI�������
Echo 07/2020: EF 60-65%, mild with MPG 14 mm Hg, TAM 1.7 cm2.
Echo 03/04/23:�EF 55-60% with mild MR, mild , aortic root 4 cm, trace pericardial effusion
Echo 06/04/23: EF 55 to 60%, mild concentric LVH, mild mitral stenosis with mean transmitral gradient 6 mmHg, moderate MR, mild peak/mean gradient 22/13 mmHg and TAM 1.4 cm sq, trace TR with pulmonary artery systolic pressure 26 mmHg mildly
dilated aortic root
Echo 08/29/2023: EF 40-45%, pleural effusion
Plan:
Acute on chronic hypoxic respiratory failure 2/2 acute on chronic HFmEF exacerbation (Chronically on 2L)
-Increase lasix to BID
-Monitor renal function - may need nephrology input
Recently diagnosed persistent atrial flutter with failed cardioversion 09/08/2023 on amiodarone
-Blood pressures are borderline and may limit ability for rate control
-QTc mildly prolonged - amiodarone reduced to 200 mg once daily
-BB for rate control
-Continue anticoagulation with Eliquis, renally dosed
Multivessel coronary artery disease status post non-STEMI with recent staged revascularization
-No chest pain or pressure; Mildly elevated troponin consistent with nonischemic myocardial injury
-Continue Plavix in addition to Eliquis
-Continue Zetia/atorvastatin
-Continue to optimize goal-directed medical therapy as able.
will follow with you
Progress Note - Circuit Board Drafter
Subjective
Date of Service: September 21, 2023
No acute overnight events. She is resting comfortably in bed. Tells me her breathing is comfortable at rest, but has been experiencing dyspnea on exertion. No chest discomfort. Also reports that her memory has been poor.
Objective
Labs:
09/21/23 07:10
09/21/23 07:10
Labs
Hgb 11.1 g/dL (12.0-16.0) L 09/21/23 07:10
Hct 33.6 % (37.0-47.0) L 09/21/23 07:10
Plt Count 241 10^3/uL (130-400) 09/21/23 07:10
Sodium 138 mmol/L (135-145) 09/21/23 07:10
Potassium 3.8 mmol/L (3.5-5.1) 09/21/23 07:10
BUN 46 mg/dl (7-17) H 09/21/23 07:10
Creatinine 2.8 mg/dL (0.6-1.0) H 09/21/23 07:10
Glucose 95 mg/dl (70-99) 09/21/23 07:10
Troponins
09/19/23 09/20/23
19:07 10:20
Troponin I 0.041 H* 0.048 H*
Vital Signs and I&O:
Vital Signs
Temp Pulse Resp BP Pulse Ox
97.8 F 94 18 117/66 99
09/21/23 10:57 09/21/23 10:57 09/21/23 10:57 09/21/23 10:57 09/21/23 10:57
Vital Signs
Temp Pulse Resp BP Pulse Ox
97.8 F 94 18 117/66 99
09/21/23 10:57 09/21/23 10:57 09/21/23 10:57 09/21/23 10:57 09/21/23 10:57
Intake & Output
09/19/23 09/20/23 09/21/23 09/22/23
06:59 06:59 06:59 06:59
Intake Total 120 / 120 1080 / 1080
Balance 120 / 120 1080 / 1080
Physical Exam
Physical Exam
Gen: NAD, AA
HEENT: NC/AT, sclera anicteric
Neck: No JVD
CV: Irregularly irregular, NL s1/s2
Lungs: CTAB on 2 L nasal cannula
Abd: S/ND
Ext: Trace LE edema
Skin: Warm, dry, ecchymotic
Neuro: Non-focal
[2023-09-21 12:16] VITALS: BMI 30.2
--- NOTE | 2023-09-21 14:14 | W.PN.HOSP.TC ---
Today's Communication/Plan
-
change IV lasix to BID
Incentive [place], Acapella
Assessment / Plan
Assessment / Plan
Physical Exam
General: No Apparent Distress
HEENT: Moist mucous membranes
Respiratory: Crackles
Cardiac: S1/S2 and Irregular Rhythm
GI: Soft, Non Tender and Non Distended
Musculoskeletal: No Clubbing, No Cyanosis, Edema, Left Lower Extremity and Edema, Right Lower Extremity
Skin: Warm; No Dry or Rash
Neuro: Awake, Alert, Oriented and AO x 3
Hematologic/Lymphatic: No Lymphadenopathy
Psych: Calm
#Acute on chronic hypoxic respiratory failure 2/2 acute on chronic HFpEF exacerbation (Chronically on 2L)
#Poor Afib (unspecified)� control
#CAD s/p PCI on 09/03/23
Fluid overload as well as atelectasis
back to 2L
Cont IV Lasix, increase to BID dosing, daily weight, I&O, cardiology to follow
Eliquis to cont
Amiodarone to cont
Incentive spirometer, Acapella
#Bilateral pleural effusions with R>L
-most likely 2/2 to acute CHF + atelectasis - less likely pneumonia as afebrile, no cough, febrile episodes
If Lasix will not assist in� decreasing effusion - might need IRAD for thoracentesis
-cont diuresis
#Non-Ischemic Myocardial Injury
-2/2 to acute chf and afib
-no chest pain
-cards consulted
#Weight Loss
-has admitted to decrease PO intake/lack of appetitite - this has also been an issue in the past that has been worked up by GI
-can f/u with GI/PCP outpatient for cancer screening if deems necessary: follows with Dr. Acevedo
-no n/v at this time
#HLD
#Hypothyroidism, f/u free t4
#CKD stage 3b
#Spinal stenosis
#PMR
cont home meds
#Chronic transaminitis most likely 2/2 fatty liver
#Intermittent postprandial pain
Was ebvaluated by GI on 08/29/23 - PPI and outpatient follow up recommended with PMHx of weight loss
DVT ppx - on Eliquis
Full code
Anticipated Discharge: 24 - 48 hours
Subjective/Interval History
-
Date of Service: September 21, 2023
No acute events overnight
Objective Data
-
Labs:
Laboratory Results
09/21/23
07:10
WBC 7.7
Hgb 11.1 L
Hct 33.6 L
Plt Count 241
Sodium 138
Potassium 3.8
Chloride 104
Carbon Dioxide 28
BUN 46 H
Creatinine 2.8 H
Glucose 95
Calcium 8.3 L
Total Bilirubin 1.0
AST 47 H
ALT 44 H
Alkaline Phosphatase 97
Vital Signs:
Vital Signs
Temp Pulse Resp BP Pulse Ox
97.8 F 94 18 117/66 99
09/21/23 10:57 09/21/23 10:57 09/21/23 10:57 09/21/23 10:57 09/21/23 10:57
I&O
09/20/23 09/21/23 09/22/23
06:59 06:59 06:59
Intake Total 120 / 120 1080 / 1080
Balance 120 / 120 1080 / 1080
Review of Systems
-
EENT: Denies Sore Throat
Respiratory: Denies Cough or Trouble Breathing
Cardiac: Denies Chest Pain
Abdomen/GI: Denies Abdominal Pain, Nausea, Vomiting or Diarrhea
Genitourinary: Denies Dysuria or Frequency
Neuro: Denies Headache
Data Reviewed
-
CT Scan: Image personally visualized and interpreted and Report Reviewed by me
Labs: Labs Reviewed by me
[2023-09-21] MEDS: TYLENOL 650 MG PO (14:31)
[2023-09-21 15:00] VITALS: BP 123/61
[2023-09-21] MEDS: DELTASONE 5 MG PO (17:41)
[2023-09-21] MEDS: ZETIA 10 MG PO (17:41)
[2023-09-21] MEDS: LIPITOR 40 MG PO (17:41)
[2023-09-21 18:01] LABS: Urine Albumin Negative (Neg - Trace); Urine Bilirubin Negative (Negative); Urine Character Clear (Clear); Urine Color Straw; Urine Glucose Negative (Negative); Urine Ketone Negative (Negative); Urine Leukocyte 1+ (Negative); Urine Nitrite Negative (Negative); Urine Occult Blood Negative (Negative); Urine Urobilinogen Negative (Neg - 1+)
[2023-09-21 18:19] LABS: Urine Bacteria Few (Negative)
[2023-09-21 18:20] LABS: Urine Red Blood Cell 0-2 /HPF (0-2)
[2023-09-21 19:30] VITALS: BP 132/89
[2023-09-21] MEDS: PEPCID 20 MG PO (20:19)
[2023-09-21 23:19] VITALS: BP 118/64
[2023-09-22 03:31] VITALS: BP 99/59
[2023-09-22 05:51] VITALS: BMI 29.8
[2023-09-22] MEDS: SYNTHROID 75 MCG PO (06:16)
[2023-09-22 07:30] VITALS: BP 133/68
[2023-09-22] MEDS: PACERONE 200 MG PO (08:36)
[2023-09-22] MEDS: LASIX 40 MG IV ×2 (08:36→15:35)
[2023-09-22] MEDS: ELIQUIS 2.5 MG PO ×2 (08:36→19:56)
[2023-09-22] MEDS: EFFEXOR XR 75 MG PO (08:36)
[2023-09-22] MEDS: PROTONIX 40 MG PO (08:37)
[2023-09-22] MEDS: TOPROL XL 50 MG PO ×2 (08:37→19:55)
[2023-09-22] MEDS: PLAVIX 75 MG PO (08:37)
[2023-09-22 08:55] LABS: Hematocrit 37.5 % (37.0-47.0); Mean Corpuscular Hgb 30.5 pg (27.0-31.0); Mean Corpuscular Volume 95.4 fL (81.0-99.0); Mean Platelet Volume 10.2 fL (7.4-10.4); Platelet Count 241 10^3/uL (130-400); Red Blood Cell Count 3.93 10^6/uL (4.20-5.40); Red Cell Dist. Width 14.4 % (11.5-14.5); White Blood Cell Count 11.8 10^3/uL (4.8-10.8)
[2023-09-22 09:12] LABS: Blood Urea Nitrogen 43 mg/dl (7-17); Calcium 8.3 mg/dl (8.4-10.2); Carbon Dioxide 32 mmol/L (22-30); Chloride 101 mmol/L (98-107); Estimated Creatinine Clearance 16 ml/min; Glucose 92 mg/dl (70-99); Potassium 3.5 mmol/L (3.5-5.1); Sodium 140 mmol/L (135-145); eGFR 20.07
--- NOTE | 2023-09-22 11:25 | VNURNOTE ---
Patient is current with [facility] since 09/11 w/SN, will monitor progress and plan at discharge.
[2023-09-22 11:30] VITALS: BP 126/54
--- NOTE | 2023-09-22 11:30 | CM ---
Patient seen bedside, reports she is not feeling too good today. Per Madisyn with [facility], patient is current with services. CM will continue to follow for discharge planning needs.
Plan; home with KEO with [facility] when stable.
--- NOTE | 2023-09-22 12:40 | W.PN.CARDCBS ---
Today's Communication / Plan
-
Continue IV Lasix with improved renal function and remains on 2 L of oxygen
Continue rate control A-fib with amiodarone and Eliquis
Will likely need rehab
Impression / Plan
-
Environmental Manager: Dr. Santos
Impression:
Profound generalized weakness
Anorexia with reported nausea/vomiting and diarrhea for several days
Weight loss and dysphagia on admission 08/27/23
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
Newly diagnosed typical atrial flutter with RVR 08/27/23
s/p transiently successful CV 09/08/23
recurrent Afib/flutter 09/09/23
Amiodarone initiated 09/05/2023 status post load
Eliquis initiated 09/05/2023
Acute on chronic renal insufficiency; recent ADELFO
CAD/non-STEMI with abnormal Lexiscan nuclear stress test 09/01/2023
PCI LAD 2004 ([facility])
PCI RCA 07/2010 ([facility])
s/p OM stent 10/08/17 with residual 40% stenosis of mid LAD and 50-60% stenosis of prox PDA
s/p 2.5 mm Xience to mid LAD 09/04/23
Acute on chronic HFpEF
HTN
Hypertension
Mild peak/mean 22/13 mmHg and TAM 1.4 cm sq - May 2023
HTN
Psoriatic arthritis
Polymyalgia rheumatica
Hyperlipidemia
Hx interstitial lung disease on chronic oxygen at night
Hypothyroidism
Anxiety
Fibromyalgia
Chronic dyspnea
Hx cervical radiculopathy
Statin intolerance
Hx left rotator cuff tear
Urethral stone w/ hydronephrosis 01/2018
Shingles 09/2022
Syncope 09/2022 in setting of GI illness/dehydration
Chronic pain syndrome on oxycodone daily
Echo 01/06/18:�Mild LVH, EF 50-55% possible lateral hypokinesis, normal RV, severely dilated LA, Mild to moderate MR, Mild aortic stenosis, peak/mean gradient 29/16, aortic valve area 1.6 cm�, Mild TR, pulmonary pressure 51-56 mmHg
Echo October 2018: Ejection fraction 60-65 percent, mild MR, mild , mild-moderate AI�������
Echo 07/2020: EF 60-65%, mild with MPG 14 mm Hg, TAM 1.7 cm2.
Echo 03/04/23:�EF 55-60% with mild MR, mild , aortic root 4 cm, trace pericardial effusion
Echo 06/04/23: EF 55 to 60%, mild concentric LVH, mild mitral stenosis with mean transmitral gradient 6 mmHg, moderate MR, mild peak/mean gradient 22/13 mmHg and TAM 1.4 cm sq, trace TR with pulmonary artery systolic pressure 26 mmHg mildly
dilated aortic root
Echo 08/29/2023: EF 40-45%, pleural effusion
Plan:
She is difficult examination but may be improved
She remains on 2 L
Continue IV Lasix as creatinine has improved from 2.8 on 09/20 to 2.3 on 09/21
Remains in rate controlled atrial fibrillation
She had some GI complaints before that no longer seems to be present and will continue low-dose amiodarone
Continue Eliquis
Continue Plavix in addition to Eliquis with LAD stent in August 2023
She agrees that she may need rehab
Progress Note - Environmental Manager
Subjective
Date of Service: September 22, 2023
No complaints.
Objective
Labs:
09/22/23 08:28
09/22/23 08:28
Labs
Hgb 12.0 g/dL (12.0-16.0) 09/22/23 08:28
Hct 37.5 % (37.0-47.0) 09/22/23 08:28
Plt Count 241 10^3/uL (130-400) 09/22/23 08:28
Sodium 140 mmol/L (135-145) 09/22/23 08:28
Potassium 3.5 mmol/L (3.5-5.1) 09/22/23 08:28
BUN 43 mg/dl (7-17) H 09/22/23 08:28
Creatinine 2.3 mg/dL (0.6-1.0) H 09/22/23 08:28
Glucose 92 mg/dl (70-99) 09/22/23 08:28
Troponins
09/19/23 09/20/23
19:07 10:20
Troponin I 0.041 H* 0.048 H*
Vital Signs and I&O:
Vital Signs
Temp Pulse Resp BP Pulse Ox
97.9 F 91 18 126/54 92
09/22/23 11:30 09/22/23 11:30 09/22/23 11:30 09/22/23 11:30 09/22/23 11:30
Vital Signs
Temp Pulse Resp BP Pulse Ox
97.9 F 91 18 126/54 92
09/22/23 11:30 09/22/23 11:30 09/22/23 11:30 09/22/23 11:30 09/22/23 11:30
Intake & Output
09/20/23 09/21/23 09/22/23 09/23/23
06:59 06:59 06:59 06:59
Intake Total 120 / 120 1080 / 1080 900 / 900
Output Total 300 / 300
Balance 120 / 120 1080 / 1080 600 / 600
Physical Exam
Physical Exam
General: Well developed, well nourished in NAD.
Neck: Supple, no JVD, HJR, carotids +2 B/L, no bruits bilaterally.
Heart: Non displaced PMI, irregular, no murmurs, No S3, S4, no rubs.
Lungs: Scattered rhonchi
Extremities: No clubbing, cyanosis or edema bilaterally.
Neuro: Grossly nonfocal, awake, alert and oriented x3.
--- NOTE | 2023-09-22 13:22 | PTCARENOTE ---
Pt noted to have a small nose bleed, just small drops of blood noted. Pt stats she has a 'growth in her nose' that bleeds at times if she picks it. Humidification added to her O2 to help with dryness.
--- NOTE | 2023-09-22 14:33 | W.PN.HOSP.TC ---
Today's Communication/Plan
-
continue diuresis
f/u renal function
d/c in 24-48hrs
Assessment / Plan
Assessment / Plan
#Acute on chronic hypoxic respiratory failure 2/2 acute on chronic HFpEF exacerbation (Chronically on 2L)
#Poor Afib (unspecified)� control
#CAD s/p PCI on 09/03/23
-Fluid overload as well as atelectasis
-Eliquis to cont
-Amiodarone to cont
-Incentive spirometer, Acapella
-Diuretics per cardio, weight and cr trending down,
#Bilateral pleural effusions
-CT chest images reviewed , small effusion and not amenable to thoracentesis
#Non-Ischemic Myocardial Injury
-2/2 to acute chf and afib
-no chest pain
-cards consulted
#Weight Loss
-has admitted to decrease PO intake/lack of appetitite - this has also been an issue in the past that has been worked up by GI
-can f/u with GI/PCP outpatient for cancer screening if deems necessary: follows with Dr. Acevedo
-no n/v at this time
HLD
Hypothyroidism, f/u free t4
CKD stage 3b
Spinal stenosis
PMR
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
Intermittent postprandial pain - Was ebvaluated by GI on 08/29/23 - PPI and outpatient follow up recommended with PMHx of weight loss
DVT ppx - on Eliquis
Full code
Anticipated Discharge: Within 24 hours
Subjective/Interval History
-
Date of Service: September 22, 2023
sitting comfortably in bed
oxygen requirement stable
Objective Data
-
Labs:
Laboratory Results
09/22/23
08:28
WBC 11.8 H
Hgb 12.0
Hct 37.5
Plt Count 241
Sodium 140
Potassium 3.5
Chloride 101
Carbon Dioxide 32 H
BUN 43 H
Creatinine 2.3 H
Glucose 92
Calcium 8.3 L
Vital Signs:
Vital Signs
Temp Pulse Resp BP Pulse Ox
97.9 F 91 18 126/54 92
09/22/23 11:30 09/22/23 11:30 09/22/23 11:30 09/22/23 11:30 09/22/23 11:30
I&O
09/21/23 09/22/23 09/23/23
06:59 06:59 06:59
Intake Total 1080 / 1080 900 / 900
Output Total 300 / 300
Balance 1080 / 1080 600 / 600
Review of Systems
-
Respiratory: Reports No Symptoms
Cardiac: Reports No Symptoms
Abdomen/GI: Reports No Symptoms
Physical Exam
-
General: No Apparent Distress
HEENT: Oxygen
Respiratory: Clear to Auscultation
Cardiac: Regular Rhythm and S1/S2; Negative Tachycardic
GI: Soft, Nontender, Nondistended and Normal Bowel Sounds
Musculoskeletal: Edema, Right Lower Extrem and Edema, Left Lower Extrem
Skin: Other (Left forehead area with few scabbed off lesions in the top of forehead; shingles rash is now just erythematous)
Neuro: AO x 3
Psych: Calm and Confused; Negative Agitated
[2023-09-22 15:00] VITALS: BP 141/98
[2023-09-22] MEDS: LIPITOR 40 MG PO (17:13)
[2023-09-22] MEDS: ZETIA 10 MG PO (17:13)
[2023-09-22] MEDS: DELTASONE 5 MG PO (17:13)
[2023-09-22 19:15] VITALS: BP 127/62
[2023-09-22] MEDS: PEPCID 20 MG PO (23:04)
[2023-09-22 23:10] VITALS: BP 139/72
[2023-09-23] VITALS (7 sets, daily range): BP systolic 111–139; BP diastolic 49–79; PULSE 105; O2SAT 95; BMI 29.7
[2023-09-23] MEDS: SYNTHROID 75 MCG PO (06:24)
[2023-09-23 07:54] LABS: Hematocrit 36.3 % (37.0-47.0); Hemoglobin 11.7 g/dL (12.0-16.0); Mean Corp Hgb Conc. 32.2 g/dL (33.0-37.0); Mean Corpuscular Hgb 30.7 pg (27.0-31.0); Mean Corpuscular Volume 95.3 fL (81.0-99.0); Mean Platelet Volume 9.9 fL (7.4-10.4); Platelet Count 233 10^3/uL (130-400); Red Blood Cell Count 3.81 10^6/uL (4.20-5.40); Red Cell Dist. Width 14.6 % (11.5-14.5)
[2023-09-23] MEDS: ELIQUIS 2.5 MG PO (08:00)
[2023-09-23] MEDS: EFFEXOR XR 75 MG PO (08:00)
[2023-09-23] MEDS: LASIX 40 MG IV ×2 (08:01→15:14)
[2023-09-23] MEDS: PLAVIX 75 MG PO (08:01)
[2023-09-23] MEDS: TOPROL XL 50 MG PO ×2 (08:01→21:45)
[2023-09-23] MEDS: PROTONIX 40 MG PO (08:01)
[2023-09-23] MEDS: PACERONE 200 MG PO (08:01)
--- NOTE | 2023-09-23 08:18 | PN.CDI ---
CDI
- -
CDI:
Physician Documentation Request
Admit Date: 09/19/23 20:54
Dear Doctor Nimesh,
Please review the following and provide your response in the progress notes.
Clinical Indicators:
Documentation in the record on 09/21 PN includes the diagnosis of acute hypoxic respiratory failure. The patient's respiratory clinical indicators were the following:
- 318 PN 'Acute on chronic hypoxic respiratory failure 2/2 acute on chronic HFpEF exacerbation (Chronically on 2L)'
- Documented O2 at 2L maintaining pulse ox >92%
Based on the above information and the recognized standard for respiratory failure could you please verify this diagnoses is still accurate and reflective of the patient�s condition to ensure quality of the medical record.
Please clarify in the Progress Notes:
Acute hypoxic Respiratory failure is/was present and is a clinical diagnosis based on (please include this additional support in the medical record)
After study acute hypoxic respiratory failure has been ruled out, chronic hypoxic respiratory failure only
Other
Recognized standard criteria for respiratory failure includes:
(Source: [employer] [facility] May 2013)
ABGs (1 or more)
�PO2 <60 or RA SpO2 <91%
�PcO2 >50 and pH <7.35
�pO2 decrease or pcO2 increase by 10 mmHg from baseline if known Symptoms:
�Tachypnea, SOB, dyspnea
�Pallor or cyanosis
�Anxiety or restlessness
�Use of accessory muscles
�Retractions (grunting in newborns)
�Unable to speak in complete sentences
Supplemental O2 requirement of 40% (5LPM) or more Intubation is not required
Use of terms such as suspected, likely, concern for, or probable (associated with a specific diagnosis that is being evaluated, monitored, or treated as if it exists) are acceptable and can be coded in the inpatient setting, when documented at the
time of discharge.
Thank you,
Sean Hebert RN
CDI Specialist
Please use your independent medical judgment in providing your response.
[2023-09-23 08:24] LABS: Blood Urea Nitrogen 39 mg/dl (7-17); Calcium 8.3 mg/dl (8.4-10.2); Carbon Dioxide 34 mmol/L (22-30); Chloride 97 mmol/L (98-107); Estimated Creatinine Clearance 21 ml/min; Glucose 86 mg/dl (70-99); Potassium 3.3 mmol/L (3.5-5.1); Sodium 139 mmol/L (135-145); eGFR 26.93
[2023-09-23] MEDS: KCL 20 MEQ PO (10:12)
[2023-09-23] MEDS: ZOFRAN 4 MG IV (10:13)
[2023-09-23] MEDS: VIBRAMYCIN 100 MG PO ×2 (12:18→21:45)
--- NOTE | 2023-09-23 15:07 | W.PN.CARDCBS ---
Addendum entered and electronically signed by Aubrey Goddard MD 09/23/23 16:37:
I saw and examined the patient.
The Box Worker's note was reviewed and I agree with the note.
Comment:
GEN: No distress, awake, Ox3
HEENT: supple, anicteric, mmm
LUNGS: scatt rhonchi
CV: Reg, S1/S2, / syst LSB, no gallop
ABD: soft, BS+, NT/ND
EXT: No edema
NEURO: Gross non-focal
SKIN: No rash
Plan:
Was found to have pneumonia and now on antibiotics.
Continue IV Lasix diuresis much as possible. Creatinine is improved and down to 1.8. Weight is down to 162.
Await right upper extremity ultrasound.
Continue rate control strategy for A-fib. Continue amiodarone and Toprol with Eliquis. If long-term plan is to continue rate control would consider stopping amiodarone.
Original Note:
Today's Communication / Plan
-
Continue IV diuresis
Chest x-ray from today now suspicious for bilateral pneumonia started on antibiotics
Replete potassium give additional 40 mEq this afternoon to morning dose
Ultrasound of right wrist ordered by primary team to exclude pseudoaneurysm
Impression / Plan
-
Rn Lab: Dr. Santos
Impression:
Presented 09/19/2023 with profound generalized weakness
Anorexia with reported nausea/vomiting and diarrhea for several days
Weight loss and dysphagia on admission 08/27/23
Acute on chronic HFpEF
Acute on chronic renal insufficiency; recent ADELFO
Concern for bilateral pneumonia
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
Newly diagnosed typical atrial flutter with RVR 08/27/23
s/p transiently successful CV 09/08/23
recurrent Afib/flutter 09/09/23
Amiodarone initiated 09/05/2023 status post load
Eliquis initiated 09/05/2023
CAD/non-STEMI with abnormal Lexiscan nuclear stress test 09/01/2023
PCI LAD 2004 ([facility])
PCI RCA 07/2010 ([facility])
s/p OM stent 10/08/17 with residual 40% stenosis of mid LAD and 50-60% stenosis of prox PDA
s/p 2.5 mm Xience to mid LAD 09/04/23
HTN
Hypertension
Mild peak/mean 22/13 mmHg and TAM 1.4 cm sq - May 2023
HTN
Psoriatic arthritis
Polymyalgia rheumatica
Hyperlipidemia
Hx interstitial lung disease on chronic oxygen at night
Hypothyroidism
Anxiety
Fibromyalgia
Chronic dyspnea
Hx cervical radiculopathy
Statin intolerance
Hx left rotator cuff tear
Urethral stone w/ hydronephrosis 01/2018
Shingles 09/2022
Syncope 09/2022 in setting of GI illness/dehydration
Chronic pain syndrome on oxycodone daily
Echo 01/06/18:�Mild LVH, EF 50-55% possible lateral hypokinesis, normal RV, severely dilated LA, Mild to moderate MR, Mild aortic stenosis, peak/mean gradient 29/16, aortic valve area 1.6 cm�, Mild TR, pulmonary pressure 51-56 mmHg
Echo October 2018: Ejection fraction 60-65 percent, mild MR, mild , mild-moderate AI�������
Echo 07/2020: EF 60-65%, mild with MPG 14 mm Hg, TAM 1.7 cm2.
Echo 03/04/23:�EF 55-60% with mild MR, mild , aortic root 4 cm, trace pericardial effusion
Echo 06/04/23: EF 55 to 60%, mild concentric LVH, mild mitral stenosis with mean transmitral gradient 6 mmHg, moderate MR, mild peak/mean gradient 22/13 mmHg and TAM 1.4 cm sq, trace TR with pulmonary artery systolic pressure 26 mmHg mildly
dilated aortic root
Echo 08/29/2023: EF 40-45%, pleural effusion
Plan:
Acute on chronic hypoxic respiratory failure 2/2 acute on chronic HFmEF exacerbation (Chronically on 2L)
-ProBNP [id number] which is higher than it has been in the past
-Lasix increased to 40 mg IV twice daily starting 09/21/2023
-Weight down several pounds this admission, Although volume balance is +2200 mL; She is difficult examination but may be improved
-Monitor renal function, creatinine improving with diuresis 3.0->2.8>2.3>1.8 09/23/2023
-K+ 3.3 replete, got 20 meq this am. Give additional 40 mEq this afternoon
Concern for pneumonia
-Still requiring 2 L with ambulation as she had desaturation with physical therapy
-repeat chest x-ray 09/23/2023 shows increased parenchymal opacity involving the medial right lower lung and infrahilar region, as well as the left midlung suspicious for bilateral pneumonia. Small left pleural effusion improved
-Started on doxycycline 09/23/2023
Recently diagnosed persistent atrial flutter with failed cardioversion 09/08/2023 on amiodarone
-Remains relatively rate controlled in atrial fibrillation
-Continue amiodarone reduced to 200 mg once daily; seems to be tolerating with improved nausea, although did vomit earlier today when straining to have a bowel movement
-BB for rate control
-Continue anticoagulation with Eliquis, renally dosed
Multivessel coronary artery disease
-status post non-STEMI with revascularization w/ LAD PCI 09/04/2023
-No chest pain or pressure; Mildly elevated troponin consistent with nonischemic myocardial injury
-Continue Plavix in addition to Eliquis
-Continue Zetia/atorvastatin
-Continue to optimize goal-directed medical therapy as able.
-Mild swelling of right wrist. Primary team ordered ultrasound to rule out pseudoaneurysm
She agrees that she may need rehab vs home PT
Progress Note - Rn Lab
Subjective
Date of Service: September 23, 2023
Patient seen and examined. Patient sitting in bed wearing oxygen. She reports she continues to cough which is productive.
Objective
Labs:
09/23/23 07:37
09/23/23 07:37
Labs
Hgb 11.7 g/dL (12.0-16.0) L 09/23/23 07:37
Hct 36.3 % (37.0-47.0) L 09/23/23 07:37
Plt Count 233 10^3/uL (130-400) 09/23/23 07:37
Sodium 139 mmol/L (135-145) 09/23/23 07:37
Potassium 3.3 mmol/L (3.5-5.1) L 09/23/23 07:37
BUN 39 mg/dl (7-17) H 09/23/23 07:37
Creatinine 1.8 mg/dL (0.6-1.0) H 09/23/23 07:37
Glucose 86 mg/dl (70-99) 09/23/23 07:37
Vital Signs and I&O:
Vital Signs
Temp Pulse Resp BP Pulse Ox
98.2 F 100 24 116/57 92
09/23/23 11:15 09/23/23 11:15 09/23/23 11:15 09/23/23 11:15 09/23/23 11:15
Vital Signs
Temp Pulse Resp BP Pulse Ox
98.2 F 100 24 116/57 92
09/23/23 11:15 09/23/23 11:15 09/23/23 11:15 09/23/23 11:15 09/23/23 11:15
Intake & Output
09/21/23 09/22/23 09/23/23 09/24/23
06:59 06:59 06:59 06:59
Intake Total 1080 / 1080 900 / 900 600 / 600
Output Total 300 / 300 200 / 200
Balance 1080 / 1080 600 / 600 400 / 400
Physical Exam
Physical Exam
GEN: No distress, awake, Ox3, looks ill
HEENT: supple, anicteric, mmm
LUNGS: Coarse breath sounds bilaterally CTA, faint wheezes expiratory noted
CV: Irregularly irregular S1/S2, 1/6 syst LSB, no murmur
ABD: soft, BS+, NT/ND
EXT: Trace to +1 lower extremity edema, no clubbing or cyanosis; mild swelling of right wrist
NEURO: Gross non-focal
SKIN: No rash warm, dry, pink, areas of ecchymosis noted on arms and legs
--- NOTE | 2023-09-23 15:28 | W.PN.HOSP.TC ---
Today's Communication/Plan
-
see note
Assessment / Plan
Assessment / Plan
#Acute on chronic hypoxic respiratory failure 2/2 acute on chronic HFpEF exacerbation (Chronically on 2L)
#Poor Afib (unspecified)� control
#CAD s/p PCI on 09/03/23
-Fluid overload as well as atelectasis
-Amiodarone to cont
-Incentive spirometer, Acapella
-Renal function improving, patient have poor appetite, holding afternoon dose of lasix
-Hold eliquis/plavix tonight until right wrist rules out pseudoaneurysm
#Bilateral pleural effusions
-CT chest images reviewed , small effusion and not amenable to thoracentesis
#Non-Ischemic Myocardial Injury
-2/2 to acute chf and afib
-no chest pain
-cards consulted
#Weight Loss
-has admitted to decrease PO intake/lack of appetite - this has also been an issue in the past that has been worked up by GI
-can f/u with GI/PCP outpatient for cancer screening if deems necessary: follows with Dr. Acevedo
-no n/v at this time
# Right wrist swelling
- r/o pseudoaneurysm vs other.
- US report pending.
# Nausea/vomiting
- no signs of acute abdomen
- symptomatic care
HLD
Hypothyroidism, f/u free t4
CKD stage 3b
Spinal stenosis
PMR
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
Intermittent postprandial pain - Was ebvaluated by GI on 08/29/23 - PPI and outpatient follow up recommended with PMHx of weight loss
DVT ppx - on Eliquis
Full code
Total time spent: 53 mins
Anticipated Discharge: Within 24 hours
Subjective/Interval History
-
Date of Service: September 23, 2023
episode of nausea/vomiting in night
not feeling well
o2 requirement stable
Objective Data
-
Labs:
Laboratory Results
09/23/23
07:37
WBC 11.0 H
Hgb 11.7 L
Hct 36.3 L
Plt Count 233
Sodium 139
Potassium 3.3 L
Chloride 97 L
Carbon Dioxide 34 H
BUN 39 H
Creatinine 1.8 H
Glucose 86
Calcium 8.3 L
Vital Signs:
Vital Signs
Temp Pulse Resp BP Pulse Ox
98.2 F 100 24 116/57 92
09/23/23 11:15 09/23/23 11:15 09/23/23 11:15 09/23/23 11:15 09/23/23 11:15
I&O
09/22/23 09/23/23 09/24/23
06:59 06:59 06:59
Intake Total 900 / 900 600 / 600
Output Total 300 / 300 200 / 200
Balance 600 / 600 400 / 400
Review of Systems
-
Respiratory: Reports No Symptoms
Cardiac: Reports No Symptoms
Abdomen/GI: Reports Nausea and Vomiting; Denies Abdominal Pain or Diarrhea
Physical Exam
-
General: No Apparent Distress
HEENT: Oxygen
Respiratory: Rhonchi
Cardiac: Regular Rhythm and S1/S2; Negative Tachycardic
GI: Soft, Nontender and Nondistended
Musculoskeletal: Edema, Right Lower Extrem, Edema, Left Lower Extrem and Other (Right wrist swelling )
Skin: Other
Neuro: Awake, Alert and AO x 3
Psych: Calm and Confused; Negative Agitated
[2023-09-23] MEDS: KCL 40 MEQ PO (15:39)
--- NOTE | 2023-09-23 16:51 | CM ---
Patient seen bedside with daughter Rosario, discussed PT recommendation of SNF. Patient and daughter agreeable, requesting referrals to [facility] and [facility] [facility]. CM will continue to follow for discharge planning needs.
Plan: SNF pending accepting facility.
[2023-09-23] MEDS: DELTASONE 5 MG PO (17:30)
[2023-09-23] MEDS: LIPITOR 40 MG PO (17:31)
[2023-09-23] MEDS: ZETIA 10 MG PO (17:31)
[2023-09-23] MEDS: PEPCID 20 MG PO (21:45)
[2023-09-24] VITALS (14 sets, daily range): BP systolic 110–155; BP diastolic 64–106; BMI 29.7; BMI 29.4
[2023-09-24] MEDS: SYNTHROID 75 MCG PO (06:24)
[2023-09-24 07:37] LABS: Hematocrit 35.9 % (37.0-47.0); Hemoglobin 11.3 g/dL (12.0-16.0); Mean Corp Hgb Conc. 31.5 g/dL (33.0-37.0); Mean Corpuscular Hgb 30.5 pg (27.0-31.0); Mean Corpuscular Volume 96.8 fL (81.0-99.0); Mean Platelet Volume 10.1 fL (7.4-10.4); Platelet Count 230 10^3/uL (130-400); Red Blood Cell Count 3.71 10^6/uL (4.20-5.40); Red Cell Dist. Width 14.6 % (11.5-14.5); White Blood Cell Count 8.9 10^3/uL (4.8-10.8)
[2023-09-24 08:00] LABS: Procalcitonin 0.33 ng/ml (0.0-0.25)
[2023-09-24 08:01] LABS: Blood Urea Nitrogen 37 mg/dl (7-17); Calcium 8.3 mg/dl (8.4-10.2); Carbon Dioxide 32 mmol/L (22-30); Chloride 96 mmol/L (98-107); Estimated Creatinine Clearance 21 ml/min; Glucose 100 mg/dl (70-99); Sodium 137 mmol/L (135-145); eGFR 26.93
[2023-09-24] MEDS: PACERONE 200 MG PO (08:40)
[2023-09-24] MEDS: VIBRAMYCIN 100 MG PO ×2 (08:41→20:57)
[2023-09-24] MEDS: TOPROL XL 50 MG PO ×2 (08:41→20:57)
[2023-09-24] MEDS: PROTONIX 40 MG PO (08:41)
[2023-09-24] MEDS: EFFEXOR XR 75 MG PO (08:41)
--- NOTE | 2023-09-24 08:51 | CON.VAS ---
Addendum entered and electronically signed by Larry uPga MD 09/24/23 10:18:
Seen and examined with GERMAN Doll. Agree with findings as noted below. 88-year-old female with extensive medical history as noted below. Underwent right radial artery access for diagnostic coronary catheterization, followed by transfemoral access
for definitive/therapeutic catheterization about 2-1/2 weeks ago. She had small hematoma and ultrasound had demonstrated no evidence of pseudoaneurysm. Subsequently now readmitted with exacerbation of heart failure. Patient noted increasing right
wrist swelling and pain over the last week or so. Increased over the last day such that it is painful when she turns her wrist either way. Ultrasound confirmed pseudoaneurysm. Asked to evaluate. On exam she is awake and alert. She is in no
acute distress. Breathing is unlabored. Right upper extremity with easily visualized and palpable distal right radial artery pseudoaneurysm at the wrist. (Pulsatile mass). No skin thinning. No ecchymosis surrounding. Palpable radial pulse
proximally and distally. Hand is warm and pink and well-perfused.
Duplex reviewed.
Plan/ Right radial artery 2.4 cm pseudoaneurysm status post coronary catheterization. Recommend surgical repair. Discussed with the patient. I discussed with her son Dr. Dc Larry via the phone per patient's request. Discussed with them both
the procedure, risks including but not limited to bleeding, infection, nerve injury, ischemic concerns to the hand. They understand all wish to proceed. Will add her on to the schedule today for relatively expeditious repair of the pseudoaneurysm
to prevent rupture.
Original Note:
Consultation
Consultation Request
Date/Time Consultation Performed: 09/24/2023 0851
Requesting Provider: Hospitalist
Performing Provider: Cristiana Doll, GERMAN-C for Larry Puga MD
Reason for Consultation: Right radial wrist pseudoaneurysm
Medical History
-
Chief Complaint: Right wrist 'bump' and pain
History of Present Illness:
This is a 88-year-old female with significant past medical history of coronary artery disease status post PCI, new onset atrial fibrillation, HFpEF, mild aortic stenosis, interstitial lung disease on 2 L oxygen at bedtime, CKD stage III,
hypertension, hyperlipidemia, hypothyroidism, fibromyalgia, severe arthritis, and hiatal hernia. Patient presented to [facility] ED on 09/19/2023 at the urgency of cardiology for worsening dyspnea and lower extremity swelling. ED evaluation found
bilateral pleural effusions with elevated proBNP prompting admission. Vascular surgery has been consulted as patient was noted to have 'lump' at right wrist prompting ultrasound which demonstrated right radial pseudoaneurysm. Patient endorses that
an attempt was made to place a right hand/wrist peripheral IV I suspect during her last hospital stay which was from 08/27/23- 09/11/23 as patient endorses that this IV stick occurred roughly one week ago. She says following the attempted peripheral
IV she noted slowly increasing bump that did not bother her until yesterday when he called significant pain when she rotated her wrist. However, of note during her last hospitalization she underwent diagnostic left heart catheterization via the
right radial wrist approach on 09/03/2023. Patient denies right hand coolness, pallor, and paresthesia. She does endorse intermittent pain at right wrist area specifically at 'bump,' particularly with movement and rotation of her wrist.
Past Medical History
Past Medical History: Arrhythmias (Atrial fibrillation), CAD, CHF, HTN, Hypothyroidism, Valvular Disease (Mild aortic stenosis) and Other (Interstitial lung disease, CKD stage III, fibromyalgia, arthritis, and hiatal hernia)
Past Surgical History: Cardiac (PCI LAD 2004 ([facility]), PCI RCA 07/2010 ([facility]), OM stent 10/08/17, PCI to mid LAD 09/04/23, cardioversion 09/08/2023)
Social History
Tobacco: Non-Smoker
Alcohol: None
Drug: None
Living: Alone
Allergies / Home Medications
Allergy/AdvReac Type Severity Reaction Status Date / Time
hydroxychloroquine sulfate Allergy Rash Verified 09/19/23 16:21
[From Plaquenil]
Penicillins Allergy Itching Verified 09/19/23 16:21
Medication Instructions Recorded Confirmed Type
venlafaxine 75 mg capsule,extended 75 mg PO DAILY Depression 12/09/17 09/19/23 History
release 24 hr
prednisone 5 mg tablet 5 mg PO QPM INFLAMMATION 01/05/18 09/19/23 History
cholecalciferol (vitamin D3) 25 1,000 units PO QPM Supplement 08/11/18 09/19/23 History
mcg (1,000 unit) tablet
ezetimibe 10 mg tablet 10 mg PO QPM High cholesterol 08/11/18 09/19/23 History
famotidine 20 mg tablet 20 mg PO HS Gastrointestinal Issue 03/03/23 09/19/23 History
Simponi ARIA 1 dose IV Q8W psoriatic arthritis 06/03/23 09/19/23 History
therapeutic multivitamin 1 tab PO QPM Supplement 06/03/23 09/19/23 History
levothyroxine 75 mcg tablet 75 mcg PO DAILY AT 0700 30 days 06/06/23 09/19/23 Rx
#30 tabs
furosemide 40 mg tablet 40 mg PO DAILY Fluid 08/27/23 09/19/23 History
retention/Swelling
metoprolol succinate 50 mg 50 mg PO BID Blood Pressure 08/27/23 09/19/23 History
tablet,extended release 24 hr
amiodarone 200 mg tablet 200 mg PO BID Arrhythmia #28 tabs 09/11/23 09/19/23 Rx
apixaban 2.5 mg tablet (Eliquis) 2.5 mg PO BID Blood clot 09/11/23 09/19/23 Rx
prevention/tx #60 tabs
atorvastatin 40 mg tablet 40 mg PO QPM High cholesterol #30 09/11/23 09/19/23 Rx
tabs
clopidogrel 75 mg tablet 75 mg PO DAILY Heart 09/11/23 09/19/23 Rx
disease/condition #30 tabs
pantoprazole 40 mg tablet,delayed 40 mg PO DAILY Gastrointestinal 09/11/23 09/19/23 Rx
release issue #30 tabs
potassium chloride 20 mEq 20 meq PO DAILY Electrolyte 09/11/23 09/19/23 Rx
tablet,extended release(part/cryst) Repletion #30 tabs
Review of Systems
-
History Source: Patient
All other systems: Negative unless noted
Musculoskeletal: Reports Other (Right wrist pain and 'bump ')
Physical Exam
Vital Signs
Temp Pulse Resp BP Pulse Ox
97.6 F 103 20 150/86 99
09/24/23 07:30 09/24/23 07:30 09/24/23 07:30 09/24/23 07:30 09/24/23 07:30
Lab Results
09/24/23 06:51
09/24/23 06:51
Troponin I 0.048 ng/ml H* 09/20/23 10:20
Uuj-O-Cfcbycjdzek Pept 09486 pg/ml 09/19/23 19:07
Physical Exam
General: No Apparent Distress and Comfortable
HEENT: Normocephalic, Anicteric and Atraumatic
Respiratory: Non Labored Respirations (On oxygen supplementation via nasal cannula)
Cardiac: Negative JVD
GI: Soft, Non Tender and Non Distended
Musculoskeletal: Edema (Bilateral lower extremity trace edema) and Other (Right wrist with palpable pseudoaneurysm, pulsatile, +2 radial pulse palpable, right hand warm)
Skin: Warm and Dry
Neuro: AO x 3 and Nonfocal/Grossly Intact
Psych: Calm
Assessment / Plan
-
Assessment: 88-year-old female admitted for management of acute on chronic HFmEF exacerbation, with incidental finding of 2.4 cm pseudoaneurysm arising from the right radial artery
Plan:
OR today for repair of right radial pseudoaneurysm
Patient n.p.o.
Reviewed plan with attending Dr. Larry Puga
[2023-09-24] MEDS: PERIDEX 0.12% ORAL RINSE 15 ML PO (13:35)
[2023-09-24] MEDS: BACTROBAN 2% OINTMENT 1 APPLIC NASAL (13:35)
--- NOTE | 2023-09-24 14:19 | W.PN.HOSP.TC ---
Today's Communication/Plan
-
for OR today
AC post op per vasc sx
Assessment / Plan
Assessment / Plan
#Acute on chronic hypoxic respiratory failure 2/2 acute on chronic HFpEF exacerbation (Chronically on 2L)
#Poor Afib (unspecified)� control
#CAD s/p PCI on 09/03/23
-Fluid overload as well as atelectasis
-Amiodarone to cont
-Incentive spirometer, Acapella
-Lasix on hold today
-Hold eliquis/plavix for pseudoaneurysm repair, post op AC per vasc sx
#Bilateral pleural effusions
-CT chest images reviewed , small effusion and not amenable to thoracentesis
#Non-Ischemic Myocardial Injury
-2/2 to acute chf and afib
-no chest pain
-cards consulted
#Weight Loss
-has admitted to decrease PO intake/lack of appetite - this has also been an issue in the past that has been worked up by GI
-can f/u with GI/PCP outpatient for cancer screening if deems necessary: follows with Dr. Acevedo
-no n/v at this time
# Right radial artery pseudoaneurysm
-had radial art access last month
-confirmed with [facility] US
-Vasc surg consulted, patient going to OR today
# Nausea/vomiting
- no signs of acute abdomen
- symptomatic care
HLD
Hypothyroidism, f/u free t4
CKD stage 3b
Spinal stenosis
PMR
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
Intermittent postprandial pain - Was ebvaluated by GI on 08/29/23 - PPI and outpatient follow up recommended with PMHx of weight loss
DVT ppx - on Eliquis
Full code
Total time spent: 53 mins
Anticipated Discharge: 24 - 48 hours
Subjective/Interval History
-
Date of Service: September 24, 2023
no new acute issues
o2 requirement stable
Objective Data
-
Labs:
Laboratory Results
09/24/23
06:51
WBC 8.9
Hgb 11.3 L
Hct 35.9 L
Plt Count 230
Sodium 137
Potassium 4.0
Chloride 96 L
Carbon Dioxide 32 H
BUN 37 H
Creatinine 1.8 H
Glucose 100 H
Calcium 8.3 L
Vital Signs:
Vital Signs
Temp Pulse Resp BP Pulse Ox
97.8 F 103 22 137/86 97
09/24/23 11:33 09/24/23 11:33 09/24/23 11:33 09/24/23 11:33 09/24/23 11:33
I&O
09/23/23 09/24/23 09/25/23
06:59 06:59 06:59
Intake Total 600 / 600 120 / 120
Output Total 200 / 200 200 / 200
Balance 400 / 400 -80 / -80
Review of Systems
-
Respiratory: Reports No Symptoms
Cardiac: Reports No Symptoms
Abdomen/GI: Reports No Symptoms
Physical Exam
-
General: No Apparent Distress
HEENT: Oxygen
Respiratory: Clear to Auscultation
Cardiac: Regular Rhythm and S1/S2; Negative Tachycardic
GI: Soft, Nontender and Nondistended
Musculoskeletal: Edema, Right Lower Extrem, Edema, Left Lower Extrem and Other (Right wrist swelling )
Skin: Other
Neuro: Awake, Alert and AO x 3
Psych: Calm and Confused; Negative Agitated
[2023-09-24] MEDS: VANCOCIN 200 IV (14:58)
--- NOTE | 2023-09-24 15:20 | W.SUR.PREOP ---
Pre-Operative Surgical Note
-
I have examined this patient prior to the performance of the scheduled procedure.
The patient's condition is unchanged from the time of the current History and
Physical and the patient is able to undergo the scheduled procedure.
--- NOTE | 2023-09-24 15:26 | PTCARENOTE ---
Pt was administered a nerve block by anesthesia for Rt radial procedure. Pt sleeping but easily arousable. B/p 128/75 O2 sat 94%. O2 at 4l started by Dr Whitman. Awaiting transport to vascular procedure room.
--- NOTE | 2023-09-24 15:36 | PTCARENOTE ---
Pt to vascular with Subha Lynch. B/ 02 sat 94%
--- NOTE | 2023-09-24 15:47 | CM ---
Patient seen bedside with daughter Rosario, patient for OR today. Per Phi, [facility], [facility], [facility], [facility], [facility], and [facility] can all accept pending facility bed availability at time of discharge.
CM will update patient and daughter of accepting facilities. CM will continue to follow for discharge planning needs.
Plan; SNF pending accepting facility when medically stable.
--- NOTE | 2023-09-24 15:55 | W.PN.CARDCBS ---
Today's Communication / Plan
-
She seems improved we will consider changing Lasix to p.o. in next 24 to 48 hours
Continue rate control of A-fib with amiodarone and Toprol
Continue Plavix in addition to Eliquis with PCI of LAD on 09/04/2023
Impression / Plan
-
Chief Substation Operator: Dr. Santos
Impression:
Presented 09/19/2023 with profound generalized weakness
Anorexia with reported nausea/vomiting and diarrhea for several days
Weight loss and dysphagia on admission 08/27/23
Acute on chronic HFpEF
Acute on chronic renal insufficiency; recent ADELFO
Concern for bilateral pneumonia
Nonischemic myocardial injury
Right radial artery pseudoaneurysm
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
Newly diagnosed typical atrial flutter with RVR 08/27/23
s/p transiently successful CV 09/08/23
recurrent Afib/flutter 09/09/23
Amiodarone initiated 09/05/2023 status post load
Eliquis initiated 09/05/2023
CAD/non-STEMI with abnormal Lexiscan nuclear stress test 09/01/2023
PCI LAD 2004 ([facility])
PCI RCA 07/2010 ([facility])
s/p OM stent 10/08/17 with residual 40% stenosis of mid LAD and 50-60% stenosis of prox PDA
s/p 2.5 mm Xience to mid LAD 09/04/23
HTN
Hypertension
Mild peak/mean 22/13 mmHg and TAM 1.4 cm sq - May 2023
HTN
Psoriatic arthritis
Polymyalgia rheumatica
Hyperlipidemia
Hx interstitial lung disease on chronic oxygen at night
Hypothyroidism
Anxiety
Fibromyalgia
Chronic dyspnea
Hx cervical radiculopathy
Statin intolerance
Hx left rotator cuff tear
Urethral stone w/ hydronephrosis 01/2018
Shingles 09/2022
Syncope 09/2022 in setting of GI illness/dehydration
Chronic pain syndrome on oxycodone daily
Echo 01/06/18:�Mild LVH, EF 50-55% possible lateral hypokinesis, normal RV, severely dilated LA, Mild to moderate MR, Mild aortic stenosis, peak/mean gradient 29/16, aortic valve area 1.6 cm�, Mild TR, pulmonary pressure 51-56 mmHg
Echo October 2018: Ejection fraction 60-65 percent, mild MR, mild , mild-moderate AI�������
Echo 07/2020: EF 60-65%, mild with MPG 14 mm Hg, TAM 1.7 cm2.
Echo 03/04/23:�EF 55-60% with mild MR, mild , aortic root 4 cm, trace pericardial effusion
Echo 06/04/23: EF 55 to 60%, mild concentric LVH, mild mitral stenosis with mean transmitral gradient 6 mmHg, moderate MR, mild peak/mean gradient 22/13 mmHg and TAM 1.4 cm sq, trace TR with pulmonary artery systolic pressure 26 mmHg mildly
dilated aortic root
Echo 08/29/2023: EF 40-45%, pleural effusion
Plan:
Stable cardiology status for right radial artery pseudoaneurysm repair without further testing
She seems to be improved from a CHF standpoint although weight is only down 4 pounds since admission
She remains on 2 L of oxygen and initially renal function had improved but seem to have plateaued with creatinine of 1.8
Consider change to oral Lasix in the next 24 to 48 hours
She may need oxygen on discharge
She is on doxycycline for possible pneumonia
She remains in atrial fibrillation with reasonable heart rate control on amiodarone and on Eliquis
Continue Plavix in addition to Eliquis w/ LAD PCI 09/04/2023
Discussed with patient and daughter at bedside
They are agreeable to rehab if qualifies
Progress Note - Chief Substation Operator
Subjective
Date of Service: September 24, 2023
No chest pain or shortness of breath. Remains on 2 L of oxygen
Objective
Labs:
09/24/23 06:51
09/24/23 06:51
Labs
Hgb 11.3 g/dL (12.0-16.0) L 09/24/23 06:51
Hct 35.9 % (37.0-47.0) L 09/24/23 06:51
Plt Count 230 10^3/uL (130-400) 09/24/23 06:51
Sodium 137 mmol/L (135-145) 09/24/23 06:51
Potassium 4.0 mmol/L (3.5-5.1) 09/24/23 06:51
BUN 37 mg/dl (7-17) H 09/24/23 06:51
Creatinine 1.8 mg/dL (0.6-1.0) H 09/24/23 06:51
Glucose 100 mg/dl (70-99) H 09/24/23 06:51
Vital Signs and I&O:
Vital Signs
Temp Pulse Resp BP Pulse Ox
97.8 F 103 22 137/86 97
09/24/23 11:33 09/24/23 11:33 09/24/23 11:33 09/24/23 11:33 09/24/23 11:33
Vital Signs
Temp Pulse Resp BP Pulse Ox
97.8 F 103 22 137/86 97
09/24/23 11:33 09/24/23 11:33 09/24/23 11:33 09/24/23 11:33 09/24/23 11:33
Intake & Output
09/22/23 09/23/23 09/24/23 09/25/23
06:59 06:59 06:59 06:59
Intake Total 900 / 900 600 / 600 120 / 120
Output Total 300 / 300 200 / 200 200 / 200
Balance 600 / 600 400 / 400 -80 / -80
Physical Exam
Physical Exam
General: Well developed, well nourished in NAD.
Neck: Supple, no JVD, HJR, carotids +2 B/L, no bruits bilaterally.
Heart: Non displaced PMI, irregular, no murmurs, No S3, S4, no rubs.
Lungs: Scattered rhonchi
Extremities: No clubbing, cyanosis or edema bilaterally.
Neuro: Grossly nonfocal, awake, alert and oriented x3.
--- NOTE | 2023-09-24 16:07 | W.PN.UPDATE ---
Update Note
Progress Note Update
Patient underwent regional block by anesthesia in the preop area due to her significant CHF/interstitial lung disease/potential pneumonias and the risk of general anesthesia. (Had discussed with her son as well who preferred that route). She had
received only 2 mg of Versed for sedation for that block. This seemed to sedate her quite a bit. She was still arousable, but fairly sedated. When brought to the operating room however, and attempted to put on the table, she became severely
orthopneic. High flow oxygen was administered. She was sat up. She insisted on sitting up at this point and said she did not wish to be in there and wanted to get out of the room and out of the table. She felt very uncomfortable. At this point,
I called her son and spoke to him on the phone. I discussed with him that the options would be to proceed likely under general anesthesia, however given her comorbidities and lung conditions, significant concern regarding ability to wean off the
ventilator. The other alternative would be to cancel the surgery and except the risk of radial artery pseudoaneurysm and potential growth/rupture.
Her son understood all wish for us to bring her off the table at this point. Understanding that the block had been completed. Therefore we will cancel procedure.
She will be taken to recovery room. We have ordered stat chest x-ray to rule out elevated hemidiaphragm, and to rule out pneumothorax.
Looking at the images of the ultrasound I do not know that thrombin injection is an option here. (High likelihood of thrombosis/distal embolization).
Will update hospitalist. I have updated the cardiology team as well.
--- NOTE | 2023-09-24 16:22 | W.PN.UPDATE ---
Update Note
Progress Note Update
CXR reviewed image by me. I don't see definitive pneumothorax (difficult to see right apex well). No jennifer-diaphram elevation. Interstitial disease/pulm congestion. LLL consolidation likely. Await radiologist report. Breathing significantly
improved now on HF NC 15L.
[2023-09-24] MEDS: LASIX 40 MG IV ×2 (16:44→19:10)
--- NOTE | 2023-09-24 17:02 | CON.PUL ---
Consultation
Consultation Request
Date/Time Consultation Requested: 09/23
Date/Time Consultation Performed: 09/24/2023
Reason for Consultation: Worsening chest x-ray
Medical History
-
History of Present Illness:
Patient with extremely complex medical history, well-known to me as outpatient. She is a very pleasant 88-year-old female with history of interstitial lung disease on 2 L of oxygen, psoriatic arthritis on chronic low-dose prednisone, cystic
fibrosis carrier, pulmonary hypertension, with normal RV function improved recently, sleep apnea with desaturation or 78%, not amenable to sleep apnea evaluation, with recent hospital stay for non-ST elevation HI, cardiac catheterization with
angioplasty and stent to LAD. She was continued on amiodarone at that time, pantoprazole, Plavix. Echocardiogram at that time showed EF 40% with global hypokinesis. She also had a GI evaluation at that time which showed presbyesophagus, tertiary
contractions. Creatinine prior to discharge 2.7. She was readmitted 09/19/2023 complaining of poor appetite, diarrhea, thought to be in heart failure, creatinine 2.9. With Lasix therapy, creatinine had improved to 1.8. She was found to have a
right radial pseudoaneurysm, with plans to go to the OR for vascular repair 09/23. We are asked to see her for recent chest x-ray which suggested bilateral pneumonia.
Patient underwent a regional block by anesthesia in the preop area, received 2 mg of Versed. Patient became severely orthopneic while in the OR transferred to the table. Patient felt uncomfortable, short of breath. Records suggest she was
orthopneic. Plan was to pursue procedure with general anesthesia, intubation but son did not want to pursue intubation/mechanical ventilation for the procedure. Patient was brought back to the PACU. Immediate chest x-ray at that time suggested
bilateral infiltrates, possibly heart failure, difficult to distinguish between interstitial pneumonitis. Right perihilar pneumonia and left lower lobe pneumonia appear to be slightly improved on the current chest x-ray when compared to 09/22
I evaluated the patient in the PACU at approximately 4:45 PM. Heart rate 120s, systolic pressure 120s/90s, patient on high flow oxygen. She appears comfortable, conversant. Chest exam with poor air movement, few rhonchi anteriorly. Right radial
artery aneurysm noted.
.
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
multiple stents from [id number] at [facility], hypertension, hyperlipidemia, aortic stenosis valve area 1.4 cm, Psoriatic arthritis, PMR, hypothyroidism, fibromyalgia, cervical radiculopathy, hydronephrosis with nephrolithiasis in the past, history of
syncope in the setting of GI illness/dehydration, chronic pain syndrome on oxycodone, GERD with history of duodenal ulcer , chronic biliary dilatation status postcholecystectomy in the past, osteoporosis. History of cholecystectomy, bilateral total
knee replacement, hip replacement, back surgery.
Past Medical History
Past Medical History: None (See above)
Past Surgical History: None (See above )
Social History
Tobacco: Non-smoker
Alcohol: None
Drug: None
Living: Alone
Employment: Retired
Family History
Family History: Other (Family history of heart disease, coronary disease. Brother with heart attack. Family history of lung cancer)
Allergies / Home Medications
Allergies
Allergy/AdvReac Type Severity Reaction Status Date / Time
hydroxychloroquine sulfate Allergy Rash Verified 09/19/23 16:21
[From Plaquenil]
Penicillins Allergy Itching Verified 09/19/23 16:21
Home Medications
Medication Instructions Recorded Confirmed Last Taken Type
venlafaxine 75 mg capsule,extended 75 mg PO DAILY Depression 12/09/17 09/19/23 09/19/23 History
release 24 hr
prednisone 5 mg tablet 5 mg PO QPM INFLAMMATION 01/05/18 09/19/23 09/18/23 History
cholecalciferol (vitamin D3) 25 1,000 units PO QPM Supplement 02/11/2209/19/23 09/18/23 History
mcg (1,000 unit) tablet
ezetimibe 10 mg tablet 10 mg PO QPM High cholesterol 08/11/18 09/19/23 09/18/23 History
famotidine 20 mg tablet 20 mg PO HS Gastrointestinal Issue 03/03/23 09/19/23 09/18/23 History
Simponi ARIA 1 dose IV Q8W psoriatic arthritis 06/03/23 09/19/23 Unknown History
therapeutic multivitamin 1 tab PO QPM Supplement 06/03/23 09/19/23 09/18/23 History
levothyroxine 75 mcg tablet 75 mcg PO DAILY AT 0700 30 days 06/06/23 09/19/23 09/19/23 Rx
#30 tabs
furosemide 40 mg tablet 40 mg PO DAILY Fluid 08/27/23 09/19/23 09/19/23 History
retention/Swelling
metoprolol succinate 50 mg 50 mg PO BID Blood Pressure 08/27/23 09/19/23 09/19/23 History
tablet,extended release 24 hr
amiodarone 200 mg tablet 200 mg PO BID Arrhythmia #28 tabs 09/11/23 09/19/23 09/19/23 Rx
apixaban 2.5 mg tablet (Eliquis) 2.5 mg PO BID Blood clot 09/11/23 09/19/23 09/19/23 Rx
prevention/tx #60 tabs
atorvastatin 40 mg tablet 40 mg PO QPM High cholesterol #30 09/11/23 09/19/23 09/18/23 Rx
tabs
clopidogrel 75 mg tablet 75 mg PO DAILY Heart 09/11/23 09/19/23 09/19/23 Rx
disease/condition #30 tabs
pantoprazole 40 mg tablet,delayed 40 mg PO DAILY Gastrointestinal 09/11/23 09/19/23 09/19/23 Rx
release issue #30 tabs
potassium chloride 20 mEq 20 meq PO DAILY Electrolyte 09/11/23 09/19/23 09/19/23 Rx
tablet,extended release(part/cryst) Repletion #30 tabs
Review of Systems
-
All other systems: Negative unless noted
Vitals / Labs / Diagnostic Testing
Vital Signs
Temp Pulse Resp BP Pulse Ox
97.3 F 119 31 131/96 100
09/24/23 16:12 09/24/23 17:00 09/24/23 17:00 09/24/23 16:45 09/24/23 17:00
Lab Data
09/24/23 06:51
09/24/23 06:51
Microbiology
09/21/23 17:46 Urine Urine Culture - Final
Diagnostic Testing:
Physical Exam
-
HEENT: Normocephalic, Anicteric and Other (On high flow oxygen)
Cardiovascular: S1/S2, Irregular Rhythm (Tachycardic), Murmur (n), Rub (n) and Calf Tenderness (n)
Respiratory: Wheeze (n), Rales (Mild), Rhonchi (Few), Non-Labored Respirations and Other (Weak cough)
GI: Soft, Non Distended and Non Tender
Neurology: Awake, Alert and No Motor Deficits (Moves extremities, follows commands)
Skin: Other (Scattered bruising) and Other ( right radial aneurysm)
General: Comfortable (Conversant)
Assessment
-
88-year-old female with complex cardiopulmonary history on chronic oxygen therapy, recent cardiac catheterization with LAD stent placement 09/04/2023, NSTEMI 09/01/2023, abnormal stress test, newly diagnosed atrial flutter with RVR 08/27/2023 on
amiodarone therapy since 09/05/2023, readmitted 09/19/2023, treated for heart failure found to have right radial artery pseudoaneurysm. Creatinine improved from 2.9-1.8 during hospital stay. Chest x-ray 09/22 showed questionable bilateral pneumonia.
Patient had acute episode of shortness of breath, orthopnea following regional block on 09/24/2023. Family did not want to pursue intubation for radial artery repair. We are asked to help from pulmonary standpoint.
Acute hypoxic respiratory insufficiency
Orthopnea, questionable panic attack
Following a regional block, Versed 09/24/2023
Requiring high flow oxygen
Bilateral interstitial infiltrates
Pulm edema versus interstitial pneumonitis versus aspiration pneumonitis
Started on doxycycline 09/22 for abnormal chest x-ray
General fatigue, weakness, anorexia
Nausea/emesis/diarrhea preadmission
Admitted 09/19/2023
Atrial fibrillation/atrial flutter, newly diagnosed 08/27/2023
transiently successful 09/08/2023
on amiodarone/Eliquis/Plavix, amiodarone started 09/05/2023
Toprol
Acute on chronic renal insufficiency
Creatinine 2.9 on admission, improved to 1.8
Right radial artery pseudoaneurysm
Aortic stenosis, valve area 1.4 cm
Conditions present prior to admission:
ILD, on chronic oxygen therapy, 2 L
Obstructive sleep apnea suspected-reportedly negative studies in the past-positional therapy recommended.
Nocturnal hypoxemia
Hypothyroid.�
Fibromyalgia.�
CAD/stent.�
PMR
Osteoporosis.�
Hyperlipidemia.�
Psoriatic arthritis on chronic low-dose prednisone therapy
Followed by rheumatology.�
GERD.
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
Biliary dilation/cholecystectomy.� Bilateral TKR.� Right and left THP.� Back surgery..
Family history of lung cancer
Plan/recommendations
Complex clinical situation
Patient appears to be more comfortable at this time in the PACU, on high flow
Chest exam with poor air movement, few crackles, few rhonchi
Heart rate in the 120s to 130s at this time
Of note, patient more tachycardic over the past 24 to 36 hours
Recently started on doxycycline for pneumonia per chest x-ray 09/22
Moving forward
Difficult situation as it is difficult to differentiate between heart failure and pneumonitis
Patient had improvement in creatinine preoperatively with response to Lasix therapy
Only difference that I can identify is mildly more tachycardic, heart rate 120s to 130s and possible bilateral pneumonia which is new
Sepsis is a possibility
Heart failure due to tachycardia is a possibility
Recent echocardiogram EF 40% from 08/28/2023
Mild aortic stenosis noted
Received Lasix therapy per anesthesia 40 mg x 1
Patient already on rate control (metoprolol 50 mg twice a day, amiodarone 200 mg a day)
May require intermittent IV beta-iain if heart rate continues to be elevated
Will get ECG in PACU
Mildly elevated white count 09/21, now normal, no fevers
Continue doxycycline for now
Hemodynamically stable
Follow closely for broadening of antibiotics. Penicillin allergy noted
Although she may have have an aspiration event, clinical events do not suggest that
Lastly, patient is on amiodarone therapy
Daily chest x-ray for now, follow oxygen requirement
May need to consider empiric increase in steroids but for now hold off (for non-cardiogenic edema if CHF not suispected)
Reviewed at length with PACU nursing, primary service, cardiology
Patient being transferred to IMU
We will follow
[2023-09-24] MEDS: ZETIA 10 MG PO (17:59)
[2023-09-24] MEDS: LIPITOR 40 MG PO (17:59)
[2023-09-24] MEDS: DELTASONE 5 MG PO (17:59)
--- NOTE | 2023-09-24 18:09 | W.PN.UPDATE ---
Update Note
Progress Note Update
Called to see patient with respiratory distress prior to right radial artery pseudoaneurysm surgery which was canceled.
Chest x-ray consistent with CHF.
General: Well developed, well nourished in NAD.
Neck: Supple, no JVD, HJR, carotids +2 B/L, no bruits bilaterally.
Heart: Non displaced PMI, irregular, no murmurs, No S3, S4, no rubs.
Lungs: Scattered rhonchi
Extremities: No clubbing, cyanosis or edema bilaterally.
Neuro: Grossly nonfocal, awake, alert and oriented x3.
She was given a dose of 40 mg IV Lasix. She remains on 15 L high flow. Will treat his CHF with IV Lasix. Whitley catheter might need to be placed. Might consider broadening coverage for aspiration as well but appears to be mostly CHF at present.
Discussed with pulmonary and primary service. Discussed with nursing as well. There is some tachycardia but like reactive to hypoxemia would not treat right now. If continued could consider IV Lopressor or amiodarone. Might want to avoid IV
Cardizem with reduced ejection fraction.
[2023-09-24] MEDS: PEPCID 20 MG PO (20:57)
--- NOTE | 2023-09-24 22:27 | PTCARENOTE ---
Received patient from pacu on 10 liters midflow. Oxygen weaned to 2 liters and satting 98 percent. No complaints of SOB.
[2023-09-25] VITALS (13 sets, daily range): BP systolic 98–150; BP diastolic 53–95; PULSE 101; O2SAT 98; BMI 29.2
[2023-09-25 04:14] LABS: Hemoglobin 12.2 g/dL (12.0-16.0); Mean Corp Hgb Conc. 33.9 g/dL (33.0-37.0); Mean Corpuscular Hgb 31.4 pg (27.0-31.0); Mean Corpuscular Volume 92.5 fL (81.0-99.0); Platelet Count 205 10^3/uL (130-400); Red Blood Cell Count 3.89 10^6/uL (4.20-5.40); Red Cell Dist. Width 14.6 % (11.5-14.5); White Blood Cell Count 7.2 10^3/uL (4.8-10.8)
[2023-09-25] MEDS: SYNTHROID 75 MCG PO (06:03)
[2023-09-25 07:13] LABS: Blood Urea Nitrogen 49 mg/dl (7-17); Calcium 8.6 mg/dl (8.4-10.2); Carbon Dioxide 33 mmol/L (22-30); Chloride 96 mmol/L (98-107); Estimated Creatinine Clearance 17 ml/min; Glucose 104 mg/dl (70-99); Potassium 4.3 mmol/L (3.5-5.1); Sodium 138 mmol/L (135-145); eGFR 21.17
--- NOTE | 2023-09-25 07:50 | W.PN.CARDCBS ---
Addendum entered and electronically signed by Aubrey Goddard MD 09/25/23 10:39:
I saw and examined the patient.
The Public Health Engineer's note was reviewed and I agree with the note.
Comment:
GEN: No distress, awake, Ox3
HEENT: supple, anicteric, mmm
LUNGS: scatt rhonchi
CV: Irreg, S1/S2, 1/6 syst LSB, no gallop
ABD: soft, BS+, NT/ND
EXT: R pseudoaneurysm
NEURO: Gross non-focal
SKIN: No rash
plan:
Breathing is improved. Continue Lasix 40 mg IV twice daily. Creatinine at 2.2. Continue to follow.
Will repeat echocardiogram today. Check troponin.
She remains in rate controlled atrial fibrillation. Continue amiodarone, Toprol, and Eliquis.
Will discuss with vascular surgery regarding plans for pseudoaneurysm.
Continue medical therapy for coronary artery disease. Continue metoprolol, atorvastatin, Zetia, and Plavix.
Original Note:
Today's Communication / Plan
-
Cont higher dose Lasix 40 mg IV BID
Recheck echo for EF and gradients
Check Troponin and ECG
Restart Plavix and Eliquis
53 minutes in face to face time and in chart prep and review
Impression / Plan
-
PCP: Dr. Wilbert Figueroa
Contour Path T[employer] Mill Operator: Dr. Santos
Impression:
Presented with profound generalized weakness 09/19/23
Recent admission with weight loss, dysphagia, presbyesophagus, Afib s/p CV and PCI 08/27/23 until 09/11/23
Acute hypoxic respiratory insufficiency 09/24/23
Abnormal CXR with B/L interstitial infiltrates concerning for pneumonitis vs pulmonary edema 09/23/23
Acute on chronic HFpEF
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
Elevated Troponin
Right radial artery pseudoaneurysm
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
Paroxysmal typical atrial flutter
s/p transiently successful CV 09/08/23
recurrent Afib/flutter 09/09/23
Amiodarone initiated 09/05/2023 status post load
Eliquis initiated 09/05/2023
CAD
PCI LAD 2004 ([facility])
PCI RCA 07/2010 ([facility])
s/p OM stent 10/08/17 with residual 40% stenosis of mid LAD and 50-60% stenosis of prox PDA
s/p 2.5 mm Xience to mid LAD 09/04/23
HTN
Hypertension
Mild peak/mean 22/13 mmHg and TAM 1.4 cm sq by echo 05/2023
HTN
Psoriatic arthritis
Polymyalgia rheumatica
Hyperlipidemia
Hx interstitial lung disease on chronic oxygen at 2 L continuously
Hypothyroidism
Anxiety
Fibromyalgia
Chronic dyspnea
Hx cervical radiculopathy
Statin intolerance
Hx left rotator cuff tear
Urethral stone w/ hydronephrosis 01/2018
Shingles 09/2022
Syncope 09/2022 in setting of GI illness/dehydration
Chronic pain syndrome on oxycodone daily
Echo 01/06/18:�Mild LVH, EF 50-55% possible lateral hypokinesis, normal RV, severely dilated LA, Mild to moderate MR, Mild aortic stenosis, peak/mean gradient 29/16, aortic valve area 1.6 cm�, Mild TR, pulmonary pressure 51-56 mmHg
Echo October 2018: Ejection fraction 60-65 percent, mild MR, mild , mild-moderate AI�������
Echo 07/2020: EF 60-65%, mild with MPG 14 mm Hg, TAM 1.7 cm2.
Echo 03/04/23:�EF 55-60% with mild MR, mild , aortic root 4 cm, trace pericardial effusion
Echo 06/04/23: EF 55 to 60%, mild concentric LVH, mild mitral stenosis with mean transmitral gradient 6 mmHg, moderate MR, mild peak/mean gradient 22/13 mmHg and TAM 1.4 cm sq, trace TR with pulmonary artery systolic pressure 26 mmHg mildly
dilated aortic root
Echo 08/28/23: EF 40-45%, pleural effusion, not assessed
JIAN 09/08/23: EF 40-45%, mod to sev MR, evidence of
Plan:
-Patient was admitted 08/27/23 until 09/11/23 with weight loss and dysphagia and also new Afib/flutter. During that admission she had GI work-up that revealed presbyesophagus. She also had an abnormal stress test that led to cath with LAD PCI. After
cath patient had JIAN/CV with holiness of SR. She was discharged to home 09/11/23 following amiodarone load. She returned to 09/19/23 with CHF. Patient was diuresed with Lasix 40 mg IV daily. Cre was 2.9 on admission and peaked at 3.0. Cre seemed
to improve with IV diuresis and was 1.8 on 09/24/23. Patient was seen by vascular surgery for right wrist pain. Patient had cath via right radial approach and radial u/s 09/05/23 did not show radial aneurysm. Patient was given option of SNF vs VN at
last d/c and opted for home with VN. She does not have [employer] because the of hidden fees during the signup process. Upon return to [facility] her right wrist was increasingly swollen and painful so repeat right radial u/s performed and she now has a right
radial artery pseudoaneurysm. Patient presented to OR for repair using regional block and Versed and patient had orthopnea and hypoxia on the table and procedure cancelled. Patient is high risk for general anesthesia.
-Appreciate Pulmonology consultation. Patient reports symptomatic improvement with IV diuresis overnight. Lasix was increased to 40 mg IV BID 09/24/23. Patient laying flat in room wearing oxygen at 2 L NC on 09/25/23.
-Recheck echo to reassess gradients. has not been assessed since 05/2023 and patient with recurrent acute HF
-Weight is down 3 lbs overnight. Patient is below previous dry weight
-Cre was 1.8 on 09/24/23 and now 2.2 on 09/25/23. Will follow.
-Doxycycline for B/L interstitial infiltrates
-Troponin was 0.041 pn admission and then 0.048. Will check again 09/25/23.
-Lasix dose of Plavix was 09/23/23, currently no plans to return to OR for radial artery repair. Will restart Plavix s/p LAD stent 09/04/23
-Remains in rapid atrial flutter by last ECG 09/24/23. Recheck ECG. Tele reviewed by me and remains in Afib/flutter with HRs less than 100 on usual dose of Toprol XL 50 mg BID and now on amiodarone 200 mg daily after completing 5+ gram load last
admission.
-Eliquis 2.5 mg BID on hold, last dose 09/23/23 AM. No plans for surgery so will restart Eliquis after CV 09/08/23
-Hg stable at 12.2 on 09/25/23
Progress Note - Contour Path T[employer] Operator
Subjective
Date of Service: September 25, 2023
Laying flat in bed without SOB
Objective
Labs:
09/25/23 03:51
09/25/23 06:21
Labs
Hgb 12.2 g/dL (12.0-16.0) 09/25/23 03:51
Hct 36.0 % (37.0-47.0) L 09/25/23 03:51
Plt Count 205 10^3/uL (130-400) 09/25/23 03:51
Sodium 138 mmol/L (135-145) 09/25/23 06:21
Potassium 4.3 mmol/L (3.5-5.1) 09/25/23 06:21
BUN 49 mg/dl (7-17) H 09/25/23 06:21
Creatinine 2.2 mg/dL (0.6-1.0) H 09/25/23 06:21
Glucose 104 mg/dl (70-99) H 09/25/23 06:21
Vital Signs and I&O:
Vital Signs
Temp Pulse Resp BP Pulse Ox
97.5 F 127 25 134/79 98
09/25/23 03:41 09/24/23 20:35 09/24/23 20:35 09/24/23 20:00 09/24/23 21:16
Vital Signs
Temp Pulse Resp BP Pulse Ox
97.5 F 127 25 134/79 98
09/25/23 03:41 09/24/23 20:35 09/24/23 20:35 09/24/23 20:00 09/24/23 21:16
Intake & Output
09/23/23 09/24/23 09/25/23 09/26/23
06:59 06:59 06:59 06:59
Intake Total 600 / 600 120 / 120 200 / 200
Output Total 200 / 200 200 / 200 350 / 350
Balance 400 / 400 -80 / -80 -150 / -150
Physical Exam
Physical Exam
General: NAD, AAO x3
HEENT: EOMI, MMM
Heart: Irreg irreg, no murmur
Lungs: Wearing oxygen at 2 L NC. Clear anterolaterally without wheeze.
Abd: +BS, soft
Ext: Right radial site tender with pulsatile mass. No B/L LE edema
Neuro: Nonfocal
--- NOTE | 2023-09-25 07:52 | W.PN.UPDATE ---
Addendum entered and electronically signed by Larry Puga MD 09/25/23 10:39:
Seen and examined with GERMAN De La Torre. Findings and plan as discussed and noted below.
Original Note:
Update Note
Progress Note Update
Patient seen at bedside this a.m. with Dr. Puga. Patient has no complaints this a.m., breathing easily on 2 L nasal cannula. Patient was diuresed overnight. No other events noted. Vital signs stable, labs stable. Right radial artery
pseudoaneurysm unchanged. Plan to hold off on surgery for now. Will follow along
--- NOTE | 2023-09-25 08:22 | W.PN.PUL3 ---
Today's Communication / Plan
-
Continue primary cardiac management
Lasix, rate control
Has been weaned down to 2 L
Continue doxycycline for 7 days
Echocardiogram pending
Vascular following right radial artery pseudoaneurysm
Assessment
-
88-year-old female with complex cardiopulmonary history on chronic oxygen therapy, recent cardiac catheterization with LAD stent placement 09/04/2023, NSTEMI 09/01/2023, abnormal stress test, newly diagnosed atrial flutter with RVR 08/27/2023 on
amiodarone therapy since 09/05/2023, readmitted 09/19/2023, treated for heart failure found to have right radial artery pseudoaneurysm. Creatinine improved from 2.9-1.8 during hospital stay. Chest x-ray 09/22 showed questionable bilateral pneumonia.
Patient had acute episode of shortness of breath, orthopnea following regional block on 09/24/2023. Family did not want to pursue intubation for radial artery repair. We are asked to help from pulmonary standpoint.
Acute hypoxic respiratory insufficiency
Orthopnea, questionable panic attack
Following a regional block, Versed 09/24/2023
Requiring high flow oxygen
Bilateral interstitial infiltrates
Pulm edema versus interstitial pneumonitis versus aspiration pneumonitis
Started on doxycycline 09/22 for abnormal chest x-ray
General fatigue, weakness, anorexia
Nausea/emesis/diarrhea preadmission
Admitted 09/19/2023
Atrial fibrillation/atrial flutter, newly diagnosed 08/27/2023
transiently successful 09/08/2023
on amiodarone/Eliquis/Plavix, amiodarone started 09/05/2023
Toprol
Acute on chronic renal insufficiency
Creatinine 2.9 on admission, improved to 1.8
Right radial artery pseudoaneurysm
Aortic stenosis, valve area 1.4 cm
Conditions present prior to admission:
ILD, on chronic oxygen therapy, 2 L
Obstructive sleep apnea suspected-reportedly negative studies in the past-positional therapy recommended.
Nocturnal hypoxemia
Hypothyroid.�
Fibromyalgia.�
CAD/stent.�
PMR
Osteoporosis.�
Hyperlipidemia.�
Psoriatic arthritis on chronic low-dose prednisone therapy
Followed by rheumatology.�
GERD.
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
Biliary dilation/cholecystectomy.� Bilateral TKR.� Right and left THP.� Back surgery..
Family history of lung cancer
Plan/recommendations
At this time, patient appears to be comfortable, oxygen requirement has improved, down to 2 L
Chest exam with mild crackles anteriorly, air movement much better this morning
Creatinine 2.2
Received Lasix per cardiology, twice daily
Aborted right radial pseudoaneurysm repair due to acute hypoxia, orthopnea, shortness of breath
It is noted that her heart rate were in the 120s 130s yesterday p.m. in the PACU and during my exam
Remains on doxycycline
Moving forward
Difficult situation as it is difficult to differentiate between heart failure and pneumonitis
Given rapid improvement, suspect this is more likely pulmonary edema
Heart failure due to tachycardia is a possibility?
Recent echocardiogram EF 40% from 08/28/2023
Mild aortic stenosis noted
Repeat echocardiogram pending
Continue Lasix per cardiology
Patient already on rate control (metoprolol 50 mg twice a day, amiodarone 200 mg a day)
May require intermittent IV beta-iain if heart rate continues to be elevated
Atrial flutter per EKG
Mildly elevated white count 09/21, now normal, no fevers
Continue doxycycline for now
Hemodynamically stable
Follow closely for broadening of antibiotics. Penicillin allergy noted
Although she may have have an aspiration event, clinical events do not suggest that
Lastly, patient is on amiodarone therapy
Daily chest x-ray for now, follow oxygen requirement
May need to consider empiric increase in steroids but for now hold off (for non-cardiogenic edema if CHF not suispected)
This is less likely given rapid improvement
Right radial pseudoaneurysm noted, being followed by vascular
Unclear whether we will be able to pursue repair
We will follow
Subjective Data
-
Date of Service:
Date of Service: September 25, 2023
Subjective:
Patient sleeping comfortably this morning, on 2 L, 97%. Did not awaken during exam
Objective Data
Data Reviewed
Vital Signs / I&O / Oxygen:
Vital Signs
Temp Pulse Resp BP Pulse Ox
97.5 F 127 25 134/79 98
09/25/23 03:41 09/24/23 20:35 09/24/23 20:35 09/24/23 20:00 09/24/23 21:16
Intake and Output
09/24/23 09/25/23 09/26/23
06:59 06:59 06:59
Intake Total 120 / 120 200 / 200
Output Total 200 / 200 350 / 350
Balance -80 / -80 -150 / -150
SaO2 98
Nasal Cannula flow liters per 2
minute
Physical Exam
General: Comfortable
HEENT: Normocephalic
Cardiovascular: S1-S2, Regular Rhythm, Murmur (n) and Rub (n)
Respiratory: Wheeze (n), Crackles (few), Rhonchi and Non-Labored Respirations
GI: Soft and Non Distended
Neurology: Lethargic (Sleeping comfortably)
Skin: Good Color, Bruising (Scattered ecchymoses) and Other (Right radial pseudoaneurysm)
Labs/Micro/Reports
Lab Data
09/25/23 03:51
09/25/23 06:21
Microbiology
09/21/23 17:46 Urine Urine Culture - Final
[2023-09-25] MEDS: VIBRAMYCIN 100 MG PO ×2 (08:52→20:48)
[2023-09-25] MEDS: EFFEXOR XR 75 MG PO (08:52)
[2023-09-25] MEDS: PACERONE 200 MG PO (08:52)
[2023-09-25] MEDS: TOPROL XL 50 MG PO ×2 (08:52→20:46)
[2023-09-25] MEDS: PROTONIX 40 MG PO (08:52)
[2023-09-25] MEDS: LASIX 40 MG IV (08:53)
[2023-09-25] MEDS: ELIQUIS 2.5 MG PO ×2 (11:16→20:46)
[2023-09-25] MEDS: PLAVIX 75 MG PO (11:16)
--- NOTE | 2023-09-25 11:27 | W.PN.HOSP.TC ---
Today's Communication/Plan
-
transfer to telemetry
continue holding lasix
f/u renal function
Assessment / Plan
Assessment / Plan
# Acute on chronic hypoxic respiratory failure
# Acute on chronic HFpEF exacerbation (Chronically on 2L)
# Poor Afib (unspecified)� control
# CAD s/p PCI on 09/03/23
-Amiodarone to continue
-Incentive spirometer, Acapella
-Continue lasix on hold. f/u renal function.
-resume back on eliquis/plavix.
# Bilateral pleural effusions
-CT chest images reviewed , small effusion and not amenable to thoracentesis
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
-cr 2.8 today, hold lasix, continue to follow.
# Non-Ischemic Myocardial Injury
-2/2 to acute chf and afib
-no chest pain
-cards consulted
# Weight Loss
-has admitted to decrease PO intake/lack of appetite - this has also been an issue in the past that has been worked up by GI
-can f/u with GI/PCP outpatient for cancer screening if deems necessary: follows with Dr. Acevedo
-no n/v at this time
# Right radial artery pseudoaneurysm
-had radial art access last month
-confirmed with vasc US
-Vasc surg attempted sx under localized nerve block but patient had panic attack/hypoxia and sx was postponed as family declined to convert to [place]
# Nausea/vomiting - resolved
- no signs of acute abdomen
- symptomatic care
HLD
Hypothyroidism, f/u free t4
Spinal stenosis
PMR
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
Intermittent postprandial pain - Was ebvaluated by GI on 08/29/23 - PPI and outpatient follow up recommended with PMHx of weight loss
DVT ppx - on Eliquis
Full code
Anticipated Discharge: 24 - 48 hours
Subjective/Interval History
-
Date of Service: September 25, 2023
Resting comfortably in bed
Denies excessive shortness of breath
o2 requirement back to baseline
Objective Data
-
Labs:
Laboratory Results
09/25/23 09/25/23
03:51 06:21
WBC 7.2
Hgb 12.2
Hct 36.0 L
Plt Count 205
Sodium Cancelled 138
Potassium Cancelled 4.3
Chloride Cancelled 96 L
Carbon Dioxide Cancelled 33 H
BUN Cancelled 49 H
Creatinine Cancelled 2.2 H
Glucose Cancelled 104 H
Calcium Cancelled 8.6
Vital Signs:
Vital Signs
Temp Pulse Resp BP Pulse Ox
97.0 F 101 25 123/88 98
09/25/23 07:45 09/25/23 08:52 09/24/23 20:35 09/25/23 08:52 09/24/23 21:16
I&O
09/24/23 09/25/23 09/26/23
06:59 06:59 06:59
Intake Total 120 / 120 200 / 200
Output Total 200 / 200 350 / 350
Balance -80 / -80 -150 / -150
Review of Systems
-
Respiratory: Reports No Symptoms
Cardiac: Reports No Symptoms
Abdomen/GI: Reports No Symptoms
Physical Exam
-
General: Appears Chronically Ill
HEENT: Moist Mucous Membranes and Oxygen
Respiratory: Clear to Auscultation; Negative Wheezes or Rales
Cardiac: Regular Rhythm and S1/S2; Negative Murmur
GI: Soft, Nontender and Nondistended
Musculoskeletal: No Edema and Other (Right wrist pseudo-aneursym)
Neuro: Awake, Alert, Oriented and No Motor Deficits
[2023-09-25 11:35] LABS: Troponin I 0.036 ng/ml
--- NOTE | 2023-09-25 12:15 | W.PN.HOSP.TC ---
Today's Communication/Plan
-
Echo
continue IV Lasix
Assessment / Plan
Assessment / Plan
#Acute on chronic hypoxic respiratory failure 2/2 acute on chronic HFpEF exacerbation (Chronically on 2L)
#rate control Afib (unspecified)�
#CAD s/p PCI on 09/03/23
-Fluid overload as well as atelectasis
-Amiodarone to cont
-Incentive spirometer, Acapella
-Lasix 40 mg IV resumed
-Resumed eliquis/plavix
for Echo today
#Bilateral pleural effusions
-CT chest images reviewed , small effusion and not amenable to thoracentesis
Input of Dr. Mccarty noted and appreciated.
#Non-Ischemic Myocardial Injury
-2/2 to acute chf and afib
-no chest pain
-cards consulted, input appreciated. Echo ordered
#Weight Loss
-has admitted to decrease PO intake/lack of appetite - this has also been an issue in the past that has been worked up by GI
-can f/u with GI/PCP outpatient for cancer screening if deems necessary: follows with Dr. Acevedo
-no n/v at this time
# Right radial artery pseudoaneurysm
-had radial art access last month
-confirmed with vasc US
-Vasc surg consulted, patient went to OR 09/23, procedure cancelled due to pt feeling very uncomfortable with hypoxia and orthopnea and with concern for comorbidities
See Dr. Puga's note for details
# Nausea/vomiting
- no signs of acute abdomen
- symptomatic care
HLD
Hypothyroidism, f/u free t4
CKD stage 3b
Spinal stenosis
PMR
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
Intermittent postprandial pain - Was ebvaluated by GI on 08/29/23 - PPI and outpatient follow up recommended with PMHx of weight loss
DVT ppx - on Eliquis
Full code
Total time spent: 45 mins
Anticipated Discharge: > 48 hours
Subjective/Interval History
-
Date of Service: September 25, 2023
Awake, alert
Objective Data
-
Labs:
Laboratory Results
09/25/23 09/25/23
03:51 06:21
WBC 7.2
Hgb 12.2
Hct 36.0 L
Plt Count 205
Sodium Cancelled 138
Potassium Cancelled 4.3
Chloride Cancelled 96 L
Carbon Dioxide Cancelled 33 H
BUN Cancelled 49 H
Creatinine Cancelled 2.2 H
Glucose Cancelled 104 H
Calcium Cancelled 8.6
Vital Signs:
Vital Signs
Temp Pulse Resp BP Pulse Ox
97.0 F 101 25 123/88 98
09/25/23 07:45 09/25/23 08:52 09/24/23 20:35 09/25/23 08:52 09/24/23 21:16
I&O
09/24/23 09/25/23 09/26/23
06:59 06:59 06:59
Intake Total 120 / 120 200 / 200
Output Total 200 / 200 350 / 350
Balance -80 / -80 -150 / -150
Review of Systems
-
History Source: Patient and Family (dgt in law in room)
Constitutional: Denies Fever
EENT: Reports No Symptoms Reported
Respiratory: Reports No Symptoms
Cardiac: Reports No Symptoms
Abdomen/GI: Reports No Symptoms
Physical Exam
-
General: Well Developed, Well Nourished and No Apparent Distress
HEENT: Normocephalic, Atraumatic and Moist Mucous Membranes
Respiratory: Clear to Auscultation; Negative Wheezes, Rales or Rhonchi
Cardiac: Regular Rhythm and S1/S2
GI: Soft, Nontender and Nondistended
Musculoskeletal: No Clubbing, No Cyanosis and No Edema
--- NOTE | 2023-09-25 13:00 | PTCARENOTE ---
Addendum entered by Arik Abreu RN 09/25/23 18:01:
Notified MD and cardiology of patients bladder scans and no voiding since carlos pulled. After discussion with cardiology, to hold lasix and if no significant urine output then carlos to be placed. Will monitor.
Original Note:
Patient AAOx3, frustrated with inability to move right arm due to supraclavicular regional block. Mood is labile and at times depressed. Emotional support provided. On 2 L NC, sats >93%. Aflutter on monitor. VSS. Speech consulted. Patient still
without voiding 6hours post carlos being pulled, bladder scan only reading 47ml. Will continue to monitor.
[2023-09-25] MEDS: LASIX IV ×2 (15:42→15:52)
[2023-09-25] MEDS: ZETIA 10 MG PO (17:15)
[2023-09-25] MEDS: LIPITOR 40 MG PO (17:15)
[2023-09-25] MEDS: DELTASONE 5 MG PO (17:15)
[2023-09-25] MEDS: DESENEX/MITRAZOL/ZEASORB 1 APPLIC TOPICAL (20:46)
[2023-09-26] VITALS (12 sets, daily range): BP systolic 103–166; BP diastolic 47–124; BMI 29.3
--- NOTE | 2023-09-26 01:00 | PTCARENOTE ---
Provider notified of bladder scan results, carlos placed with immediate output. Patient assist to commode, unable to pass gas/have bowel movement. Assist to chair, patient unable to get comfortable in bed.
[2023-09-26 05:45] LABS: Blood Urea Nitrogen 61 mg/dl (7-17); Calcium 9.1 mg/dl (8.4-10.2); Carbon Dioxide 25 mmol/L (22-30); Chloride 98 mmol/L (98-107); Estimated Creatinine Clearance 13 ml/min; Glucose 114 mg/dl (70-99); Potassium 4.7 mmol/L (3.5-5.1); Sodium 136 mmol/L (135-145); eGFR 15.85
[2023-09-26] MEDS: DESENEX/MITRAZOL/ZEASORB 1 APPLIC TOPICAL ×2 (08:00→20:50)
--- NOTE | 2023-09-26 09:30 | W.PN.PUL3 ---
Today's Communication / Plan
-
Weaning down on oxygen, home O2 eval
No indication for steroids at this time
Continue diuresis per team
Encouraged OOB/PT/OT, IS
Can likely transfer out of IMU
Assessment
-
88-year-old female with complex cardiopulmonary history on chronic oxygen therapy, recent cardiac catheterization with LAD stent placement 09/04/2023, NSTEMI 09/01/2023, abnormal stress test, newly diagnosed atrial flutter with RVR 08/27/2023 on
amiodarone therapy since 09/05/2023, readmitted 09/19/2023, treated for heart failure found to have right radial artery pseudoaneurysm. Creatinine improved from 2.9-1.8 during hospital stay. Chest x-ray 09/22 showed questionable bilateral pneumonia.
Patient had acute episode of shortness of breath, orthopnea following regional block on 09/24/2023. Family did not want to pursue intubation for radial artery repair. We are asked to help from pulmonary standpoint.
Acute hypoxic respiratory insufficiency
Acute on chronic heart failure exacerbation with reduced EF - 30%
Orthopnea
Edema and congestion/cardiomeg on imaging
General fatigue, weakness, anorexia
Nausea/emesis/diarrhea preadmission
Atrial fibrillation/atrial flutter, newly diagnosed 08/27/2023
Acute on chronic renal insufficiency
Creatinine 2.9 on admission, improved to 1.8
Right radial artery pseudoaneurysm
Aortic stenosis, valve area 1.4 cm
Conditions present prior to admission:
ILD, on chronic oxygen therapy, 2 L
Obstructive sleep apnea suspected-reportedly negative studies in the past-positional therapy recommended.
Nocturnal hypoxemia
Hypothyroid.�
Fibromyalgia.�
CAD/stent.�
PMR
Osteoporosis.�
Hyperlipidemia.�
Psoriatic arthritis on chronic low-dose prednisone therapy
Followed by rheumatology.�
GERD.
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
Biliary dilation/cholecystectomy.� Bilateral TKR.� Right and left THP.� Back surgery..
Family history of lung cancer
Plan/recommendations
At this time, patient appears to be comfortable, oxygen requirement has improved, down to 1 L satting 99%
Home O2 eval
Chest exam with mild crackles anteriorly, air movement much better this morning
Creatinine 2.2
Received Lasix per cardiology, twice daily
Aborted right radial pseudoaneurysm repair due to acute hypoxia, orthopnea, shortness of breath
It is noted that her heart rate were in the 120s 130s yesterday p.m. in the PACU and during my exam
Remains on doxycycline
Acute on chronic HFrEF, continued management per cards
Heart failure due to tachycardia is a possibility
Recent echocardiogram EF 40% from 08/28/2023
Mild aortic stenosis noted
EF 30%
Continue Lasix per cardiology
Patient already on rate control (metoprolol 50 mg twice a day, amiodarone 200 mg a day)
May require intermittent IV beta-iain if heart rate continues to be elevated
Atrial flutter per EKG
Mildly elevated white count 09/21, now normal, no fevers
Continue doxycycline for now
Hemodynamically stable
Follow closely for broadening of antibiotics. Penicillin allergy noted
Although she may have have an aspiration event, clinical events do not suggest that
Lastly, patient is on amiodarone therapy
Daily chest x-ray for now, follow oxygen requirement
No indication for steroids at this point
This is less likely given rapid improvement
Right radial pseudoaneurysm noted, being followed by vascular
Unclear whether we will be able to pursue repair
Diagnostic Data
CXR 09/24/23- MODERATE ACUTE INTERSTITIAL and ALVEOLAR CARDIOGENIC PULMONARY EDEMA which has markedly increased since 09/23/2023. Small bilateral pleural effusions. Large left lower lobe airspace consolidation (probably atelectasis). Moderate
cardiomegaly.
Chest x-ray from 04/22/2014 revealed no active disease. She has not had any new x-ray in the interim. Her pulmonary function test from 2012 was also re-reviewed.
CXR 04/23/23 ([facility]): reviewed on CD. Chronic changes left base.
Chest x-ray 05/07/23-mild blunting of bilateral costophrenic angles representing chronic pleural thickening, interval improvement in previously seen small bilateral pleural effusions.
Chest x-ray 06/03/23-mild cardiomegaly, unchanged
Lower extremity ultrasound 05/07/23-no evidence for DVT bilaterally.
VQ scan 05/07/23-low probability for pulmonary embolism
Abdominal CT 12/20/18 reveals clear lung bases per my review. Report suggests possible abnormal ilium. CT abdomen 01/05/18 reveals small bilateral pleural effusion and mild reticular thickening with interlobular septa.
CT CHEST 09/20/23-There is small left-sided pleural effusion with moderate parenchymal air space disease at the left lung base which may be atelectasis or pneumonia. There is small right-sided pleural effusion with underlying compressive atelectasis
at the posterior medial right lung base. Atherosclerosis. Cardiomegaly.
CT chest 10/27/17 reveals mild interstitial changes with ground glass abnormality image 37 with mild pleural effusion. Chest x-ray 08/15/18 reveals mild left lower lobe pneumonia. Chest x-ray 08/11/18 reveals bilateral patchy infiltrates.
PFT 04/02/18: FVC 2.41/111%, FEV1 1.94/122% ratio 80, TLC 3.53/80%, DLCO 12.11/69%.
Toni 05/01/23: FVC 1.32/59%, FEV1 1.07/65%, ratio 81. This has worsened
6MWT 05/01/23: Patient and related 300 feet for 3 minutes. Desaturation blessing 93% on room air, heart rate 88. Dyspnea scale 6/10.
ECHO 09/25/23: �Normal left ventricular chamber size. �Mild concentric left ventricular hypertrophy.�Moderately reduced left ventricular systolic function.�Global hypokinesis.�Left ventricular ejection fraction is 30-35%.�Normal right ventricular
size and function.�Moderate mitral regurgitation.�Mild aortic regurgitation.�Estimated pulmonary artery pressure of 45 mmHg.�Assuming a right atrial pressure of 3 mmHg.�Pulmonic valve is grossly normal but poorly visualized.�Pleural effusion
present.�The IVC is of normal size and demonstrates normal respiratory variation.�Compared to August 2023 Ejection fraction is now moderately reduced to 30%�compared to 40-45% in August.
Echo 03/04/23: Normal biventricular function, mild mitral regurgitation, aortic stenosis. Compared to prior study in 2018, EF has improved
All relevant imaging reviewed.
Subjective Data
-
Date of Service:
Date of Service: September 26, 2023
Chief Complaint: Pulmonary Follow Up
Subjective:
Doing well today, remains on low O2 requirements, 1L satting 99%
Feels better, less SOB
Has been sitting in chair at times
Objective Data
Data Reviewed
Vital Signs / I&O / Oxygen:
Vital Signs
Temp Pulse Resp BP Pulse Ox
97.4 F 100 23 133/86 99
09/26/23 06:46 09/26/23 08:00 09/26/23 08:00 09/26/23 08:00 09/26/23 07:45
Intake and Output
09/25/23 09/26/23 09/27/23
06:59 06:59 06:59
Intake Total 200 / 200 240 / 240
Output Total 350 / 350
Balance -150 / -150 240 / 240
SaO2 99
Nasal Cannula flow liters per 2
minute
Physical Exam
General: Comfortable and Other (NAD)
HEENT: Normocephalic, Anicteric and Moist Mucous Membranes
Cardiovascular: S1-S2, Regular Rhythm, Murmur (n) and Rub (n)
Respiratory: Clear and Non-Labored Respirations
GI: Soft, Non Distended and Non Tender
Neurology: Awake, Alert, Oriented, AO x 3, No Motor Deficits and Lethargic (Sleeping comfortably)
Skin: Good Color, Bruising (Scattered ecchymoses) and Other (Right radial pseudoaneurysm)
Labs/Micro/Reports
Lab Data
09/26/23 05:00
Microbiology
09/21/23 17:46 Urine Urine Culture - Final
[2023-09-26] MEDS: TOPROL XL 50 MG PO ×2 (09:55→20:45)
[2023-09-26] MEDS: VIBRAMYCIN 100 MG PO ×2 (09:55→20:45)
[2023-09-26] MEDS: PLAVIX 75 MG PO (09:55)
[2023-09-26] MEDS: PACERONE 200 MG PO (09:55)
[2023-09-26] MEDS: ELIQUIS 2.5 MG PO ×2 (09:56→20:50)
[2023-09-26] MEDS: SYNTHROID 75 MCG PO (09:56)
[2023-09-26] MEDS: PROTONIX 40 MG PO (09:56)
[2023-09-26] MEDS: EFFEXOR XR 75 MG PO (09:56)
--- NOTE | 2023-09-26 09:58 | W.PN.CARDCBS ---
Today's Communication / Plan
-
Hold IV lasix in the setting of rising BUN/Cr and decreased UOP
Check CXR
Wean O2 as tolerated (patient states she is typically 2LNC at night)
Repeat labwork in AM
Impression / Plan
-
PCP: Dr. Wilbert Figueroa
Postage Machine Operator: Dr. Santos
Impression:
Presented with profound generalized weakness 09/19/23
Recent admission with weight loss, dysphagia, presbyesophagus, Afib s/p CV and PCI 08/27/23 until 09/11/23
Acute hypoxic respiratory insufficiency 09/24/23
Abnormal CXR with B/L interstitial infiltrates concerning for pneumonitis vs pulmonary edema 09/23/23
Acute on chronic HFpEF
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
Elevated Troponin
Right radial artery pseudoaneurysm
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
Paroxysmal typical atrial flutter
s/p transiently successful CV 09/08/23
recurrent Afib/flutter 09/09/23
Amiodarone initiated 09/05/2023 status post load
Eliquis initiated 09/05/2023
CAD
PCI LAD 2004 ([facility]
PCI RCA 07/2010 ([facility])
s/p OM stent 10/08/17 with residual 40% stenosis of mid LAD and 50-60% stenosis of prox PDA
s/p 2.5 mm Xience to mid LAD 09/04/23
HTN
Hypertension
Mild peak/mean 22/13 mmHg and TAM 1.4 cm sq by echo 05/2023
HTN
Psoriatic arthritis
Polymyalgia rheumatica
Hyperlipidemia
Hx interstitial lung disease on chronic oxygen at 2 L continuously
Hypothyroidism
Anxiety
Fibromyalgia
Chronic dyspnea
Hx cervical radiculopathy
Statin intolerance
Hx left rotator cuff tear
Urethral stone w/ hydronephrosis 01/2018
Shingles 09/2022
Syncope 09/2022 in setting of GI illness/dehydration
Chronic pain syndrome on oxycodone daily
Echo 01/06/18:�Mild LVH, EF 50-55% possible lateral hypokinesis, normal RV, severely dilated LA, Mild to moderate MR, Mild aortic stenosis, peak/mean gradient 29/16, aortic valve area 1.6 cm�, Mild TR, pulmonary pressure 51-56 mmHg
Echo October 2018: Ejection fraction 60-65 percent, mild MR, mild , mild-moderate AI�������
Echo 07/2020: EF 60-65%, mild with MPG 14 mm Hg, TAM 1.7 cm2.
Echo 03/04/23:�EF 55-60% with mild MR, mild , aortic root 4 cm, trace pericardial effusion
Echo 06/04/23: EF 55 to 60%, mild concentric LVH, mild mitral stenosis with mean transmitral gradient 6 mmHg, moderate MR, mild peak/mean gradient 22/13 mmHg and TAM 1.4 cm sq, trace TR with pulmonary artery systolic pressure 26 mmHg mildly
dilated aortic root
Echo 08/28/23: EF 40-45%, pleural effusion, not assessed
JIAN 09/08/23: EF 40-45%, mod to sev MR, evidence of
TTE 09/26/23: EF 30-35%, mod MR, mild AI, aortic sclerosis no stenosis, PASP 45 mmHg
Plan:
-Patient was admitted 08/27/23 until 09/11/23 with weight loss and dysphagia and also new Afib/flutter. During that admission she had GI work-up that revealed presbyesophagus. She also had an abnormal stress test that led to cath with LAD PCI. After
cath patient had JIAN/CV with alevism of SR. She was discharged to home 09/11/23 following amiodarone load. She returned to 09/19/23 with CHF. Patient was diuresed with Lasix 40 mg IV daily. Cre was 2.9 on admission and peaked at 3.0. Cre seemed
to improve with IV diuresis and was 1.8 on 09/24/23. Patient was seen by vascular surgery for right wrist pain. Patient had cath via right radial approach and radial u/s 09/05/23 did not show radial aneurysm. Patient was given option of SNF vs VN at
last d/c and opted for home with VN. She does not have [employer] because the of hidden fees during the signup process. Upon return to [facility] her right wrist was increasingly swollen and painful so repeat right radial u/s performed and she now has a right
radial artery pseudoaneurysm. Patient presented to OR for repair using regional block and Versed and patient had orthopnea and hypoxia on the table and procedure cancelled. Patient is high risk for general anesthesia.
-Appreciate Pulmonology consultation. Patient reports symptomatic improvement with IV diuresis overnight. Lasix was increased to 40 mg IV BID 09/24/23. Patient laying flat in room wearing oxygen at 2 L NC on 09/25/23.; remains on 2L NC (patient
reports she only uses at night)
-Recheck echo to reassess gradients. has not been assessed since 05/2023 and patient with recurrent acute HF --> EF now 30-35%, no , mild AI, mod MR
-Weight is down 3 lbs overnight. Patient is below previous dry weight
-Cre was 1.8 on 09/24/23 and now 2.2 on 09/25/23, 2.8 08/28; will hold lasix today, reassess renal function tomorrow
-Doxycycline for B/L interstitial infiltrates
-Troponin was 0.041 pn admission and then 0.048 -> 0.36 on 09/24 downtrending
-Lasix dose of Plavix was 09/23/23, currently no plans to return to OR for radial artery repair. Will restart Plavix s/p LAD stent 09/04/23
-Remains in rapid atrial flutter by last ECG 09/24/23. Recheck ECG. Tele reviewed by me and remains in Afib/flutter with HRs less than 100 on usual dose of Toprol XL 50 mg BID and now on amiodarone 200 mg daily after completing 5+ gram load last
admission.
-Eliquis 2.5 mg BID on hold, last dose 09/23/23 AM. No plans for surgery so will restart Eliquis after CV 09/08/23
-Hg stable at 12.2 on 09/25/23, repeat pending 09/25
-Check CXR
Progress Note - Postage Machine Operator
Subjective
Date of Service: September 26, 2023
Patient seen and examined this morning. No acute events overnight. Patient difficult blood draw on LUE, awaiting IV team. Reports improved breathing. Denies cp, significant sob, palpitations, edema, or weakness. Patient resting comfortably, laying
flat on 2LNC. TELE rate controlled AF.
Objective
Labs:
09/26/23 05:00
Labs
Hgb Cancelled 09/26/23 05:00
Hct Cancelled 09/26/23 05:00
Plt Count Cancelled 09/26/23 05:00
Sodium 136 mmol/L (135-145) 09/26/23 05:00
Potassium 4.7 mmol/L (3.5-5.1) 09/26/23 05:00
BUN 61 mg/dl (7-17) H 09/26/23 05:00
Creatinine 2.8 mg/dL (0.6-1.0) H 09/26/23 05:00
Glucose 114 mg/dl (70-99) H 09/26/23 05:00
Troponins
09/25/23 09/26/23
10:53 05:19
Troponin I 0.036 H* Cancelled
Vital Signs and I&O:
Vital Signs
Temp Pulse Resp BP Pulse Ox
97.4 F 100 23 133/86 99
09/26/23 06:46 09/26/23 08:00 09/26/23 08:00 09/26/23 08:00 09/26/23 07:45
Vital Signs
Temp Pulse Resp BP Pulse Ox
97.4 F 100 23 133/86 99
09/26/23 06:46 09/26/23 08:00 09/26/23 08:00 09/26/23 08:00 09/26/23 07:45
Intake & Output
09/24/23 09/25/23 09/26/23 09/27/23
06:59 06:59 06:59 06:59
Intake Total 120 / 120 200 / 200 240 / 240
Output Total 200 / 200 350 / 350
Balance -80 / -80 -150 / -150 240 / 240
Physical Exam
Physical Exam
GEN: No distress, awake, Ox3
HEENT: supple, anicteric, mmm
LUNGS: scatt rhonchi, decreased breath sounds L>R
CV: Irreg, S1/S2, 1/6 syst LSB, no gallop
ABD: soft, BS+, NT/ND
EXT: R pseudoaneurysm
NEURO: Gross non-focal
SKIN: No rash
--- NOTE | 2023-09-26 11:26 | PTCARENOTE ---
Dr. Beavers notified regarding pending labs. Patient is a difficult stick and has only one arm access due to RUE restriction. Possible midline placement later today.
--- NOTE | 2023-09-26 11:28 | PTCARENOTE ---
Patient uses o2 2L at HS when home. Weaned o2 down to 1L O2, spo2 99-100%. Patient has very poor appetite, this has been ongoing. She is drinking fluids. Will continue to monitor.
[2023-09-26 14:34] LABS: % Basophils 0.1 % (0-2); % Immature Granulocytes 0.7 % (0-0.5); % Lymphocytes 6.4 % (20.5-51.1); % Monocytes 5.7 % (1.7-9.3); % Neutrophils 87.1 % (42.2-75.2); Absolute Immature Granulocytes 0.1 10^3/uL (0-0.05); Absolute Lymphocytes 0.9 10^3/uL (1.2-3.4); Absolute Monocytes 0.8 10^3/uL (0.1-0.6); Absolute Neutrophils 12.3 10^3/uL (1.4-6.5); Hemoglobin 11.3 g/dL (12.0-16.0); Mean Corp Hgb Conc. 32.3 g/dL (33.0-37.0); Mean Corpuscular Hgb 30.5 pg (27.0-31.0); Mean Corpuscular Volume 94.3 fL (81.0-99.0); Mean Platelet Volume 10.3 fL (7.4-10.4); Nucleated Red Blood Cells % 0.1 %; Platelet Count 230 10^3/uL (130-400); Red Blood Cell Count 3.71 10^6/uL (4.20-5.40); Red Cell Dist. Width 14.6 % (11.5-14.5); White Blood Cell Count 14.1 10^3/uL (4.8-10.8)
[2023-09-26] MEDS: LASIX IV (14:53)
[2023-09-26] MEDS: LIPITOR 40 MG PO (16:55)
[2023-09-26] MEDS: ZETIA 10 MG PO (16:55)
[2023-09-26] MEDS: DELTASONE 5 MG PO (16:56)
--- NOTE | 2023-09-26 17:05 | CM ---
Patient with Dx Acute on chronic hypoxic respiratory failure, HF, B/L pleural effusions, Right radial artery pseudoaneurysm. O2 1L. PT & OT recommend skilled rehab. Per nurse assessment; forgetful.
SNF referrals reviewed - there are 5 facilities that accepted.
Plan follow up with patient/daughter about SNF choices.
Plan SNF when medically ready .
[2023-09-26] MEDS: PEPCID 20 MG PO (21:44)
[2023-09-26] MEDS: MAALOX 30 ML PO (23:43)
[2023-09-27] VITALS (14 sets, daily range): BP systolic 125–177; BP diastolic 72–117; PULSE 91; O2SAT 93; BMI 29.6
[2023-09-27 04:27] LABS: Blood Urea Nitrogen 74 mg/dl (7-17); Calcium 8.6 mg/dl (8.4-10.2); Carbon Dioxide 31 mmol/L (22-30); Chloride 95 mmol/L (98-107); Estimated Creatinine Clearance 11 ml/min; Glucose 112 mg/dl (70-99); Sodium 136 mmol/L (135-145); eGFR 13.01
[2023-09-27] MEDS: SYNTHROID 75 MCG PO (06:18)
[2023-09-27] MEDS: DESENEX/MITRAZOL/ZEASORB 1 APPLIC TOPICAL ×2 (09:41→21:27)
[2023-09-27] MEDS: PROTONIX 40 MG PO (09:42)
[2023-09-27] MEDS: ELIQUIS 2.5 MG PO ×2 (09:42→21:26)
[2023-09-27] MEDS: PLAVIX 75 MG PO (09:42)
[2023-09-27] MEDS: TOPROL XL 50 MG PO ×2 (09:42→21:25)
[2023-09-27] MEDS: PACERONE 200 MG PO (09:42)
[2023-09-27] MEDS: VIBRAMYCIN 100 MG PO ×2 (09:42→21:25)
[2023-09-27] MEDS: EFFEXOR XR 75 MG PO (09:43)
--- NOTE | 2023-09-27 11:01 | W.PN.PUL.V3 ---
Today's Communication / Plan
-
Rising creatinine
Diuresis on hold
Wean oxygen
Increase activity
No change in prednisone
Assessment
-
88-year-old female with complex cardiopulmonary history on chronic oxygen therapy, recent cardiac catheterization with LAD stent placement 09/04/2023, NSTEMI 09/01/2023, abnormal stress test, newly diagnosed atrial flutter with RVR 08/27/2023 on
amiodarone therapy since 09/05/2023, readmitted 09/19/2023, treated for heart failure found to have right radial artery pseudoaneurysm. Creatinine improved from 2.9-1.8 during hospital stay. Chest x-ray 09/22 showed questionable bilateral pneumonia.
Patient had acute episode of shortness of breath, orthopnea following regional block on 09/24/2023. Family did not want to pursue intubation for radial artery repair. We are asked to help from pulmonary standpoint.
Acute hypoxic respiratory insufficiency
Acute on chronic heart failure exacerbation with reduced EF - 30%
Orthopnea
Edema and congestion/cardiomeg on imaging
General fatigue, weakness, anorexia
Nausea/emesis/diarrhea preadmission
Atrial fibrillation/atrial flutter, newly diagnosed 08/27/2023
Acute on chronic renal insufficiency
Creatinine 2.9 on admission, improved to 1.8
Right radial artery pseudoaneurysm
Aortic stenosis, valve area 1.4 cm
Conditions present prior to admission:
ILD, on chronic oxygen therapy, 2 L
Obstructive sleep apnea suspected-reportedly negative studies in the past-positional therapy recommended.
Nocturnal hypoxemia
Hypothyroid.�
Fibromyalgia.�
CAD/stent.�
PMR
Osteoporosis.�
Hyperlipidemia.�
Psoriatic arthritis on chronic low-dose prednisone therapy
Followed by rheumatology.�
GERD.
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
Biliary dilation/cholecystectomy.� Bilateral TKR.� Right and left THP.� Back surgery..
Family history of lung cancer
Plan
Respiratory status slowly improving
Continue supplemental oxygen as needed
Establish home oxygen needs prior to discharge
Nebulizers as needed
No need for steroids
Chest x-ray 09/26/2023-persistent cardiomegaly, slightly worsened aeration with increased interstitial edema and small left pleural effusion
Diuresis as tolerated-diuretics on hold
Serum creatinine rising
Monitor renal function, electrolytes, intake/output, lower extremity edema and weight
Replace electrolytes as needed
Cardiology following-correspondence reviewed-diuretics on hold
Monitor rhythm and rate control
On amiodarone
EF 30-40%
Cultures reviewed
Finite course of antibiotics
Monitor leukocytosis
Right radial pseudoaneurysm noted, being followed by vascular
Unclear whether we will be able to pursue repair
DVT prophylaxis-on Eliquis
GI prophylaxis-on pantoprazole
Nutrition
Physical therapy
Reviewed with nursing
Diagnostic Data
CXR 09/24/23- MODERATE ACUTE INTERSTITIAL and ALVEOLAR CARDIOGENIC PULMONARY EDEMA which has markedly increased since 09/23/2023. Small bilateral pleural effusions. Large left lower lobe airspace consolidation (probably atelectasis). Moderate
cardiomegaly.
Chest x-ray from 04/22/2014 revealed no active disease. She has not had any new x-ray in the interim. Her pulmonary function test from 2012 was also re-reviewed.
CXR 04/23/23 ([facility]): reviewed on CD. Chronic changes left base.
Chest x-ray 05/07/23-mild blunting of bilateral costophrenic angles representing chronic pleural thickening, interval improvement in previously seen small bilateral pleural effusions.
Chest x-ray 06/03/23-mild cardiomegaly, unchanged
Lower extremity ultrasound 05/07/23-no evidence for DVT bilaterally.
VQ scan 05/07/23-low probability for pulmonary embolism
Abdominal CT 12/20/18 reveals clear lung bases per my review. Report suggests possible abnormal ilium. CT abdomen 01/05/18 reveals small bilateral pleural effusion and mild reticular thickening with interlobular septa.
CT CHEST 09/20/23-There is small left-sided pleural effusion with moderate parenchymal air space disease at the left lung base which may be atelectasis or pneumonia. There is small right-sided pleural effusion with underlying compressive atelectasis
at the posterior medial right lung base. Atherosclerosis. Cardiomegaly.
CT chest 10/27/17 reveals mild interstitial changes with ground glass abnormality image 37 with mild pleural effusion. Chest x-ray 08/15/18 reveals mild left lower lobe pneumonia. Chest x-ray 08/11/18 reveals bilateral patchy infiltrates.
PFT 04/02/18: FVC 2.41/111%, FEV1 1.94/122% ratio 80, TLC 3.53/80%, DLCO 12.11/69%.
Burke 05/01/23: FVC 1.32/59%, FEV1 1.07/65%, ratio 81. This has worsened
6MWT 05/01/23: Patient and related 300 feet for 3 minutes. Desaturation blessing 93% on room air, heart rate 88. Dyspnea scale 6/10.
ECHO 09/25/23: �Normal left ventricular chamber size. �Mild concentric left ventricular hypertrophy.�Moderately reduced left ventricular systolic function.�Global hypokinesis.�Left ventricular ejection fraction is 30-35%.�Normal right ventricular
size and function.�Moderate mitral regurgitation.�Mild aortic regurgitation.�Estimated pulmonary artery pressure of 45 mmHg.�Assuming a right atrial pressure of 3 mmHg.�Pulmonic valve is grossly normal but poorly visualized.�Pleural effusion
present.�The IVC is of normal size and demonstrates normal respiratory variation.�Compared to August 2023 Ejection fraction is now moderately reduced to 30%�compared to 40-45% in August.
Echo 03/04/23: Normal biventricular function, mild mitral regurgitation, aortic stenosis. Compared to prior study in 2018, EF has improved
All relevant imaging reviewed.
Subjective Data
-
Date of Service:
Date of Service: September 27, 2023
Chief Complaint: Pulmonary Follow Up and Dyspnea Follow Up
Subjective:
Did not sleep well, no complaints of increased shortness of breath, chest pain or abdominal pain
Review of Systems
General: Other (Per HPI)
Objective Data
Data Reviewed
Vital Signs / I&O:
Vital Signs
Temp Pulse Resp BP Pulse Ox
98.9 F 102 18 132/114 91
09/27/23 07:35 09/27/23 07:30 09/27/23 07:30 09/27/23 04:27 09/27/23 07:30
Intake and Output
09/26/23 09/27/23 09/28/23
06:59 06:59 06:59
Intake Total 240 / 240 1105 / 1105
Output Total 170 / 170 320 / 320
Balance 70 / 70 785 / 785
SaO2: 91
Nasal Cannula flow liters per minute: 2
Physical Exam
General: Respiratory Distress (n), Comfortable and Other (NAD)
HEENT: Normocephalic, Anicteric and Moist Mucous Membranes
Cardiovascular: S1-S2, Regular Rhythm, Murmur (n) and Rub (n)
Respiratory: Clear, Wheeze (n), Crackles (Few basilar), Rhonchi (n), Non-Labored Respirations, Accessory Resp Muscle Use (n) and Stridor (n)
GI: Soft, Non Distended and Non Tender
Neurology: Awake, Alert, No Motor Deficits and Lethargic (Sleeping comfortably)
Skin: Warm, Good Color, Cyanosis (n), Bruising (Scattered ecchymoses) and Other (Right radial pseudoaneurysm)
Labs/Micro/Reports
Lab Data
09/26/23 14:19
09/27/23 03:18
--- NOTE | 2023-09-27 11:25 | W.CON.NEPH ---
Consultation
-
Date/Time Consultation Requested: September 27, 2023 9 AM
Date/Time Consultation Performed: September 27, 2023 11AM
Requesting Provider: Dunia
Performing Provider: Chago
Reason for Consultation: CAMRON/CKD
Medical History
-
Chief Complaint: Acute kidney
History of Present Illness:
Patient is an 88-year-old female with a past medical history of CKD stage IIIb who normally maintains a creatinine of 1.8. She has a history of ischemic cardiomyopathy with an EF of 30% and is maintained on furosemide in the outpatient side. She
has had multiple admissions over the past 2 months for congestive heart failure decompensation and LAD stenting which was performed in early September 2023. Following her most recent stenting procedure she suffered a right radial artery pseudoaneurysm
complication. She was readmitted a few weeks prior with increasing shortness of breath and was diuresed. Her creatinine is now, above its baseline up to 3.3 and nephrology was consultted. It should be noted that the patient does have chronic
respiratory failure due to underlying lung disease and is maintained on chronic O2 therapy..
Past Medical History
Atrial fibrillation a flutter
Heart failure preserved ejection fraction
Polymyalgia rheumatica
Coronary artery disease with recent LAD PCI/CAD/non-STEMI with abnormal Lexiscan nuclear stress test 09/01/2023
HTN
Mild peak/mean 22/13 mmHg and TAM 1.4 cm sq - May 2023
Psoriatic arthritis
Hyperlipidemia
Hx interstitial lung disease on chronic oxygen at night
Hypothyroidism
Anxiety
Fibromyalgia
Chronic dyspnea
Hx cervical radiculopathy
Statin intolerance
Hx left rotator cuff tear
Urethral stone w/ hydronephrosis 01/2018
Shingles 09/2022
Syncope 09/2022 in setting of GI illness/dehydration
Chronic pain syndrome on oxycodone daily
Ischemic cardiomyopathy
Social History
No tobacco or alcohol
Family History
No CKD
Allergies / Home Medications
Allergy/AdvReac Type Severity Reaction Status Date / Time
hydroxychloroquine sulfate Allergy Rash Verified 09/19/23 16:21
[From Plaquenil]
Penicillins Allergy Itching Verified 09/19/23 16:21
Medication Instructions Recorded Confirmed Type
venlafaxine 75 mg capsule,extended 75 mg PO DAILY Depression 12/09/17 09/19/23 History
release 24 hr
prednisone 5 mg tablet 5 mg PO QPM INFLAMMATION 01/05/18 09/19/23 History
cholecalciferol (vitamin D3) 25 1,000 units PO QPM Supplement 08/11/18 09/19/23 History
mcg (1,000 unit) tablet
ezetimibe 10 mg tablet 10 mg PO QPM High cholesterol 08/11/18 09/19/23 History
famotidine 20 mg tablet 20 mg PO HS Gastrointestinal Issue 03/03/23 09/19/23 History
Simponi ARIA 1 dose IV Q8W psoriatic arthritis 06/03/23 09/19/23 History
therapeutic multivitamin 1 tab PO QPM Supplement 06/03/23 09/19/23 History
levothyroxine 75 mcg tablet 75 mcg PO DAILY AT 0700 30 days 06/06/23 09/19/23 Rx
#30 tabs
furosemide 40 mg tablet 40 mg PO DAILY Fluid 08/27/23 09/19/23 History
retention/Swelling
metoprolol succinate 50 mg 50 mg PO BID Blood Pressure 08/27/23 09/19/23 History
tablet,extended release 24 hr
amiodarone 200 mg tablet 200 mg PO BID Arrhythmia #28 tabs 09/11/23 09/19/23 Rx
apixaban 2.5 mg tablet (Eliquis) 2.5 mg PO BID Blood clot 09/11/23 09/19/23 Rx
prevention/tx #60 tabs
atorvastatin 40 mg tablet 40 mg PO QPM High cholesterol #30 09/11/23 09/19/23 Rx
tabs
clopidogrel 75 mg tablet 75 mg PO DAILY Heart 09/11/23 09/19/23 Rx
disease/condition #30 tabs
pantoprazole 40 mg tablet,delayed 40 mg PO DAILY Gastrointestinal 09/11/23 09/19/23 Rx
release issue #30 tabs
potassium chloride 20 mEq 20 meq PO DAILY Electrolyte 09/11/23 09/19/23 Rx
tablet,extended release(part/cryst) Repletion #30 tabs
Review of Systems
-
History Source: Patient
All other systems: Negative unless noted
Constitutional: Fatigue
EENT: No Symptoms
Respiratory: Trouble Breathing and Other (Chronic shortness of breath on oxygen therapy)
Cardiac: No Symptoms
Abdomen/GI: No Symptoms
: No Symptoms
Musculoskeletal: Joint Pain
Skin: Other (Ecchymosis)
Neurological: No Symptoms
Endocrine: No Symptoms
Hematologic/Lymphatic: Other (Right radial artery pseudoaneurysm)
Physical Exam
Vital Signs
Vital Signs
Temp Pulse Resp BP Pulse Ox
98.9 F 102 18 132/114 91
09/27/23 07:35 09/27/23 07:30 09/27/23 07:30 09/27/23 04:27 09/27/23 11:08
Lab Results
09/26/23 14:19
09/27/23 03:18
WBC 14.1 10^3/uL (4.8-10.8) H 09/26/23 14:19
RBC 3.71 10^6/uL (4.20-5.40) L 09/26/23 14:19
Hgb 11.3 g/dL (12.0-16.0) L 09/26/23 14:19
Hct 35.0 % (37.0-47.0) L 09/26/23 14:19
Plt Count 230 10^3/uL (130-400) 09/26/23 14:19
Sodium 136 mmol/L (135-145) 09/27/23 03:18
Potassium 4.0 mmol/L (3.5-5.1) 09/27/23 03:18
Chloride 95 mmol/L (98-107) L 09/27/23 03:18
Carbon Dioxide 31 mmol/L (22-30) H 09/27/23 03:18
BUN 74 mg/dl (7-17) H 09/27/23 03:18
Creatinine 3.3 mg/dL (0.6-1.0) H 09/27/23 03:18
eGFR 13.01 09/27/23 03:18
Glucose 112 mg/dl (70-99) H 09/27/23 03:18
Calcium 8.6 mg/dl (8.4-10.2) 09/27/23 03:18
Kic-M-Umodimaofhn Pept 45400 pg/ml 09/19/23 19:07
Albumin 3.2 g/dl (3.5-5.0) L 09/21/23 07:10
Physical Exam
General: AOx3, No Distress and Nontoxic
HEENT: PERRL, EOMI, Anicteric, Ear/Nose Intact, Neck Supple, Trachea Midline, No JVD and No Thyromegaly
Respiratory: Wheezes, Crackels, Rhonchi and Normal Excursion
Cardiac: S1/S2 (Irregular), Edema (Plus edema) and Pulses (Right radial artery pseudoaneurysm)
Breast: Deferred by me
Abdomen: Soft, Nontender, Nondistended, Normal Bowel Sounds and No Hepatosplenomegaly
Rectal: Deferred by Provider
Genito-urinary: No Costovertebral Tender
Musculoskeletal: No Clubbing, No Cyanosis and Edema
Skin: No Rash
Neuro: Nonfocal/Grossly Intact, CN II-XII and Strength (5 out of 5 in both upper and lower extremity)
Hematologic/Lymphatic: No Cervical Lymphadenopathy, No Submandibular Lymphadenopathy and No Supraclavicular Lymphadenopathy
Psych: Mood/afflect pleasant, Insight/judgement good and Appropriate
Assessment/Plan
-
Impression:
CAMRON
CKD 3b ~1.8
Ischemic cardiomyopathy with EF of 30 to 35%
Interstitial lung disease on chronic O2 therapy
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
Presbyesophagus
Recurrent atrial fibs and flutter
Coronary artery disease
History of HTN
Psoriatic arthritis
Plan:
CAMRON
-Recent urinalysis was bland and no current evidence of obstructive uropathy but will follow-up with post void bladder scan
-I suspect her underlying acute kidney injury is due to possible underlying cardiorenal causality versus overdiuresis
-Diuretics currently held, difficult to tell whether underlying hypoxia is due to congestive heart failure versus interstitial lung disease
-Hemodynamically stable on current antihypertensives
-Right heart cath would be ultimately be more helpful in determining volume status and diuretic administration however patient's anxiety has precluded procedures including right radial artery repair
-
Data Reviewed
-
Radiology: Image Personally Visualized and interpreted (Chest x-ray from 09/25/2023 reviewed left lung opacity cardiomegaly)
Medical Tests (Nuc Med, Echo etc): Other (Cardiac echo report reviewed noted EF of 30 to 35%)
Labs: Labs Reviewed by me (BMP reviewed urinalysis rate)
Old Records: Reviewed (Creatinine 2.6 reviewed in EMR from 08/28/2023)
--- NOTE | 2023-09-27 13:02 | W.PN.HOSP.TC ---
Addendum entered and electronically signed by Sharan Beavers MD 09/27/23 13:41:
Adjust diagnosis
Acute hypoxic respiratory failure
- patient had hypoxia episode pre-operatviely requiring HFNC 15L/min
- back on baseline 2-3L through NC use
Original Note:
Today's Communication/Plan
-
see note
Assessment / Plan
Assessment / Plan
# Acute on chronic hypoxic respiratory failure
# Acute on chronic HFpEF exacerbation (Chronically on 2L)
-Amiodarone to continue
-Incentive spirometer, Acapella
-Continue lasix on hold. f/u renal function.
-resume back on eliquis/plavix.
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
-Creatinine continues to remain elevated at 3.3 today
-check PVR
-Nephro involved in care and help appreciated
#RLL pneumonia
B/l Pleural effusion
-Versus worsening pleural effusion
-CT chest images reviewed from admission, small effusion and not amenable to thoracentesis
-Repeat cxr on 09/25 showing increase opacity in left costodiaphragmatic region
-Patient already finished 5 days of doxycycline therapy
-Worsening leukocytosis today, adding Rocephin to regimen
-Left side US ordered.
# Non-Ischemic Myocardial Injury
-2/2 to acute chf and afib
-no chest pain
-cards consulted
# Right radial artery pseudoaneurysm
-had radial art access last month
-confirmed with vasc US
-Vasc surg attempted sx under localized nerve block but patient had panic attack/hypoxia and sx was postponed as family declined to convert to [place]
# Nausea/vomiting - resolved
- no signs of acute abdomen
- symptomatic care
# Weight Loss
-has admitted to decrease PO intake/lack of appetite - this has also been an issue in the past that has been worked up by GI
-can f/u with GI/PCP outpatient for cancer screening if deems necessary: follows with Dr. Acevedo
-no n/v at this time
Poor Afib (unspecified)� control
CAD s/p PCI on 09/03/23
HLD
Hypothyroidism, f/u free t4
Spinal stenosis
PMR
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
Intermittent postprandial pain - Was ebvaluated by GI on 08/29/23 - PPI and outpatient follow up recommended with PMHx of weight loss
DVT ppx - on Eliquis
Full code
Anticipated Discharge: 24 - 48 hours
Subjective/Interval History
-
Date of Service: September 27, 2023
Patient remains fatigued/tired
Poor appetite
Some nausea without vomiting
Objective Data
-
Labs:
Laboratory Results
09/27/23
03:18
Sodium 136
Potassium 4.0
Chloride 95 L
Carbon Dioxide 31 H
BUN 74 H
Creatinine 3.3 H
Glucose 112 H
Calcium 8.6
Vital Signs:
Vital Signs
Temp Pulse Resp BP Pulse Ox
98.9 F 100 14 148/91 96
09/27/23 07:35 09/27/23 11:45 09/27/23 11:45 09/27/23 08:00 09/27/23 11:59
I&O
09/26/23 09/27/23 09/28/23
06:59 06:59 06:59
Intake Total 240 / 240 1105 / 1105 240 / 240
Output Total 170 / 170 320 / 320
Balance 70 / 70 785 / 785 240 / 240
Review of Systems
-
Respiratory: Reports No Symptoms
Cardiac: Reports No Symptoms
Abdomen/GI: Reports Nausea; Denies Abdominal Pain or Vomiting
Physical Exam
-
General: Conversant, Appears Chronically Ill and Obese
HEENT: Oxygen
Respiratory: Clear to Auscultation; Negative Wheezes or Rales
Cardiac: Regular Rhythm and S1/S2; Negative Murmur
GI: Soft, Nontender and Nondistended
Musculoskeletal: No Edema and Other (Right wrist pseudoaneurysm)
Neuro: Awake and Oriented
--- NOTE | 2023-09-27 13:11 | W.PN.CARDCBS ---
Today's Communication / Plan
-
Hold diuresis
Gentle hydration with IVF encourage PO
Replete electrolytes
Tentative RHC Mon or Tues if no improvement
Impression / Plan
-
PCP: Dr. Wilbert Figueroa
Truck Driver Supervisor: Dr. Santos
Impression:
Presented with profound generalized weakness 09/19/23
Recent admission with weight loss, dysphagia, presbyesophagus, Afib s/p CV and PCI 08/27/23 until 09/11/23
Acute hypoxic respiratory insufficiency 09/24/23
Abnormal CXR with B/L interstitial infiltrates concerning for pneumonitis vs pulmonary edema 09/23/23
Acute on chronic HFpEF
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
Elevated Troponin
Right radial artery pseudoaneurysm
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
Paroxysmal typical atrial flutter
s/p transiently successful CV 09/08/23
recurrent Afib/flutter 09/09/23
Amiodarone initiated 09/05/2023 status post load
Eliquis initiated 09/05/2023
CAD
PCI LAD 2004 ([facility])
PCI RCA 07/2010 ([facility])
s/p OM stent 10/08/17 with residual 40% stenosis of mid LAD and 50-60% stenosis of prox PDA
s/p 2.5 mm Xience to mid LAD 09/04/23
HTN
Hypertension
Mild peak/mean 22/13 mmHg and TAM 1.4 cm sq by echo 05/2023
HTN
Psoriatic arthritis
Polymyalgia rheumatica
Hyperlipidemia
Hx interstitial lung disease on chronic oxygen at 2 L continuously
Hypothyroidism
Anxiety
Fibromyalgia
Chronic dyspnea
Hx cervical radiculopathy
Statin intolerance
Hx left rotator cuff tear
Urethral stone w/ hydronephrosis 01/2018
Shingles 09/2022
Syncope 09/2022 in setting of GI illness/dehydration
Chronic pain syndrome on oxycodone daily
Echo 01/06/18:�Mild LVH, EF 50-55% possible lateral hypokinesis, normal RV, severely dilated LA, Mild to moderate MR, Mild aortic stenosis, peak/mean gradient 29/16, aortic valve area 1.6 cm�, Mild TR, pulmonary pressure 51-56 mmHg
Echo October 2018: Ejection fraction 60-65 percent, mild MR, mild , mild-moderate AI�������
Echo 07/2020: EF 60-65%, mild with MPG 14 mm Hg, TAM 1.7 cm2.
Echo 03/04/23:�EF 55-60% with mild MR, mild , aortic root 4 cm, trace pericardial effusion
Echo 06/04/23: EF 55 to 60%, mild concentric LVH, mild mitral stenosis with mean transmitral gradient 6 mmHg, moderate MR, mild peak/mean gradient 22/13 mmHg and TAM 1.4 cm sq, trace TR with pulmonary artery systolic pressure 26 mmHg mildly
dilated aortic root
Echo 08/28/23: EF 40-45%, pleural effusion, not assessed
JIAN 09/08/23: EF 40-45%, mod to sev MR, evidence of
TTE 09/26/23: EF 30-35%, mod MR, mild AI, aortic sclerosis no stenosis, PASP 45 mmHg
Plan:
-Patient was admitted 08/27/23 until 09/11/23 with weight loss and dysphagia and also new Afib/flutter. During that admission she had GI work-up that revealed presbyesophagus. She also had an abnormal stress test that led to cath with LAD PCI. After
cath patient had JIAN/CV with congregation of SR. She was discharged to home 09/11/23 following amiodarone load. She returned to 09/19/23 with CHF. Patient was diuresed with Lasix 40 mg IV daily. Cre was 2.9 on admission and peaked at 3.0. Cre seemed
to improve with IV diuresis and was 1.8 on 09/24/23. Patient was seen by vascular surgery for right wrist pain. Patient had cath via right radial approach and radial u/s 09/05/23 did not show radial aneurysm. Patient was given option of SNF vs VN at
last d/c and opted for home with VN. She does not have [employer]TERN [employer] because the of hidden fees during the signup process. Upon return to [facility] her right wrist was increasingly swollen and painful so repeat right radial u/s performed and she now has a right
radial artery pseudoaneurysm. Patient presented to OR for repair using regional block and Versed and patient had orthopnea and hypoxia on the table and procedure cancelled. Patient is high risk for general anesthesia.
-Appreciate Pulmonology consultation. Patient reports symptomatic improvement with IV diuresis overnight. Lasix was increased to 40 mg IV BID 09/24/23. Patient laying flat in room wearing oxygen at 2 L NC on 09/25/23.; remains on 2L NC (patient
reports she only uses at night), now lasix on hold
-Recheck echo to reassess gradients. has not been assessed since 05/2023 and patient with recurrent acute HF --> EF now 30-35%, no , mild AI, mod MR
-Weight is down 3 lbs. Patient is below previous dry weight
-Cre was 1.8 on 09/24/23 and now 2.2 on 09/25/23, 2.8 09/25, 3.3 09/26; will hold lasix, nephrology following; encourage PO, gentle IVF and reassess tomorrow
-Doxycycline for B/L interstitial infiltrates
-Troponin was 0.041 pn admission and then 0.048 -> 0.36 on 09/24 downtrending
-Lasix dose of Plavix was 09/23/23, currently no plans to return to OR for radial artery repair. Will restart Plavix s/p LAD stent 09/04/23
-Remains in rapid atrial flutter by last ECG 09/24/23. Tele reviewed by me and remains in Afib/flutter with HRs less than 100 on usual dose of Toprol XL 50 mg BID and now on amiodarone 200 mg daily after completing 5+ gram load last admission.
-Eliquis 2.5 mg BID on hold, last dose 09/23/23 AM. No plans for surgery so will restart Eliquis after CV 09/08/23; Hg stable
Progress Note - Truck Driver Supervisor
Subjective
Date of Service: September 27, 2023
Patient seen and examined this morning. No acute events overnight. Patient reporting improved breathing and edema but notes abdominal fullness and decreased appetite with poor intake. No cp, palpitations, or weakness.
Objective
Labs:
09/26/23 14:19
09/27/23 03:18
Labs
Hgb 11.3 g/dL (12.0-16.0) L 09/26/23 14:19
Hct 35.0 % (37.0-47.0) L 09/26/23 14:19
Plt Count 230 10^3/uL (130-400) 09/26/23 14:19
Sodium 136 mmol/L (135-145) 09/27/23 03:18
Potassium 4.0 mmol/L (3.5-5.1) 09/27/23 03:18
BUN 74 mg/dl (7-17) H 09/27/23 03:18
Creatinine 3.3 mg/dL (0.6-1.0) H 09/27/23 03:18
Glucose 112 mg/dl (70-99) H 09/27/23 03:18
Troponins
09/25/23 09/26/23 09/26/23
10:53 05:19 14:19
Troponin I 0.036 H* Cancelled 0.040 H*
Vital Signs and I&O:
Vital Signs
Temp Pulse Resp BP Pulse Ox
98.9 F 100 14 148/91 96
09/27/23 07:35 09/27/23 11:45 09/27/23 11:45 09/27/23 08:00 09/27/23 11:59
Vital Signs
Temp Pulse Resp BP Pulse Ox
98.9 F 100 14 148/91 96
09/27/23 07:35 09/27/23 11:45 09/27/23 11:45 09/27/23 08:00 09/27/23 11:59
Intake & Output
09/25/23 09/26/23 09/27/23 09/28/23
06:59 06:59 06:59 06:59
Intake Total 200 / 200 240 / 240 1105 / 1105 240 / 240
Output Total 350 / 350 170 / 170 320 / 320
Balance -150 / -150 70 / 70 785 / 785 240 / 240
Physical Exam
Physical Exam
GEN: No distress, awake, Ox3
HEENT: supple, anicteric, mmm
LUNGS: scatt rhonchi, decreased breath sounds L>R
CV: Irreg, S1/S2, 1/6 syst LSB, no gallop
ABD: soft, BS+, NT/ND
EXT: R pseudoaneurysm; no edema BL LE, warm extremities
NEURO: Gross non-focal
SKIN: No rash
[2023-09-27] MEDS: ROCEPHIN 1000 MG IV (14:38)
[2023-09-27] MEDS: STERILE WATER FOR INJECTION 10 ML IV (14:38)
--- NOTE | 2023-09-27 15:15 | PTCARENOTE ---
Received report from Lroraine in IMU. Pt arrived to rm [id number] at this time with family at bedside. Pt AAOx3, forgetful at times, bed alarm in place for pt's safety. Pt Afib on telemetry. Pt on 2L via NC- 94%. See shift assessment for further detail.
Oriented pt and her family to call valdes, fall risk, plan of care, pressure ulcer prevention. Call valdes within reach, will monitor.
[2023-09-27] MEDS: LIPITOR 40 MG PO (17:36)
[2023-09-27] MEDS: ZETIA 10 MG PO (17:37)
[2023-09-27] MEDS: DELTASONE 5 MG PO (17:37)
[2023-09-28 03:23] VITALS: BP 163/70
[2023-09-28 05:59] LABS: Blood Urea Nitrogen 85 mg/dl (7-17); Calcium 8.7 mg/dl (8.4-10.2); Carbon Dioxide 31 mmol/L (22-30); Chloride 95 mmol/L (98-107); Estimated Creatinine Clearance 12 ml/min; Glucose 92 mg/dl (70-99); Potassium 4.3 mmol/L (3.5-5.1); Sodium 136 mmol/L (135-145)
[2023-09-28 06:00] VITALS: BMI 29.4
[2023-09-28] MEDS: SYNTHROID 75 MCG PO (06:10)
[2023-09-28 07:47] VITALS: BP 168/81
[2023-09-28] MEDS: PLAVIX 75 MG PO (08:56)
[2023-09-28] MEDS: EFFEXOR XR 75 MG PO (08:56)
[2023-09-28] MEDS: ELIQUIS 2.5 MG PO ×2 (08:56→19:57)
[2023-09-28] MEDS: VIBRAMYCIN 100 MG PO (08:57)
[2023-09-28] MEDS: PROTONIX 40 MG PO (08:57)
[2023-09-28] MEDS: PACERONE 200 MG PO (08:57)
[2023-09-28] MEDS: TOPROL XL 50 MG PO ×2 (08:58→19:57)
[2023-09-28 09:08] LABS: % Basophils 0.2 % (0-2); % Eosinophils 0.2 % (0-6); % Immature Granulocytes 0.8 % (0-0.5); % Lymphocytes 11.7 % (20.5-51.1); % Monocytes 8.8 % (1.7-9.3); % Neutrophils 78.3 % (42.2-75.2); Absolute Immature Granulocytes 0.1 10^3/uL (0-0.05); Absolute Lymphocytes 1.4 10^3/uL (1.2-3.4); Absolute Neutrophils 9.3 10^3/uL (1.4-6.5); Hematocrit 36.1 % (37.0-47.0); Hemoglobin 11.8 g/dL (12.0-16.0); Mean Corp Hgb Conc. 32.7 g/dL (33.0-37.0); Mean Corpuscular Hgb 30.3 pg (27.0-31.0); Mean Corpuscular Volume 92.8 fL (81.0-99.0); Mean Platelet Volume 10.7 fL (7.4-10.4); Nucleated Red Blood Cells % 0.4 %; Platelet Count 212 10^3/uL (130-400); Red Blood Cell Count 3.89 10^6/uL (4.20-5.40); Red Cell Dist. Width 14.6 % (11.5-14.5); White Blood Cell Count 11.8 10^3/uL (4.8-10.8)
[2023-09-28 10:04] VITALS: BMI 29.4
[2023-09-28] MEDS: DESENEX/MITRAZOL/ZEASORB 1 APPLIC TOPICAL ×2 (10:24→19:57)
[2023-09-28] MEDS: TYLENOL 650 MG PO (10:25)
--- NOTE | 2023-09-28 11:02 | W.PN.PUL.V3 ---
Today's Communication / Plan
-
Wean oxygen
Left chest ultrasound
Diuresis as tolerated
Monitor renal function
Finite course of antibiotics
Assessment
-
88-year-old female with complex cardiopulmonary history on chronic oxygen therapy, recent cardiac catheterization with LAD stent placement 09/04/2023, NSTEMI 09/01/2023, abnormal stress test, newly diagnosed atrial flutter with RVR 08/27/2023 on
amiodarone therapy since 09/05/2023, readmitted 09/19/2023, treated for heart failure found to have right radial artery pseudoaneurysm. Creatinine improved from 2.9-1.8 during hospital stay. Chest x-ray 09/22 showed questionable bilateral pneumonia.
Patient had acute episode of shortness of breath, orthopnea following regional block on 09/24/2023. Family did not want to pursue intubation for radial artery repair. We are asked to help from pulmonary standpoint.
Acute hypoxic respiratory insufficiency
Acute on chronic heart failure exacerbation with reduced EF - 30%
Orthopnea
Edema and congestion/cardiomeg on imaging
General fatigue, weakness, anorexia
Nausea/emesis/diarrhea preadmission
Atrial fibrillation/atrial flutter, newly diagnosed 08/27/2023
Acute on chronic renal insufficiency
Creatinine 2.9 on admission, improved to 1.8
Right radial artery pseudoaneurysm
Aortic stenosis, valve area 1.4 cm
Conditions present prior to admission:
ILD, on chronic oxygen therapy, 2 L
Obstructive sleep apnea suspected-reportedly negative studies in the past-positional therapy recommended.
Nocturnal hypoxemia
Hypothyroid.�
Fibromyalgia.�
CAD/stent.�
PMR
Osteoporosis.�
Hyperlipidemia.�
Psoriatic arthritis on chronic low-dose prednisone therapy
Followed by rheumatology.�
GERD.
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
Biliary dilation/cholecystectomy.� Bilateral TKR.� Right and left THP.� Back surgery..
Family history of lung cancer
Plan
Pulmonary status slowly improving
Continue supplemental oxygen as needed
Establish home oxygen needs prior to discharge-now nearly back to her baseline-chronically on 2 L
Continue nebulizers as needed
No need for steroids
Chest x-ray 09/26/2023-persistent cardiomegaly, slightly worsened aeration with increased interstitial edema and small left pleural effusion
Left chest ultrasound 09/24/2023-pending
Continue diuresis as tolerated-diuretics on hold
Serum creatinine rising-now stable at 3.2
Monitor renal function, electrolytes, intake/output, lower extremity edema and weight
Replace electrolytes as needed
Cardiology following-correspondence reviewed-diuretics on hold
Monitor rhythm and rate control
Patient on amiodarone
Note: EF 30-40%
Cultures reviewed
Finite course of antibiotics
Monitor leukocytosis
Right radial pseudoaneurysm noted, being followed by vascular
Unclear whether we will be able to pursue repair
DVT prophylaxis-on Eliquis
GI prophylaxis-on pantoprazole
Nutrition
Physical therapy
Reviewed with nursing as well as Dr. Beavers
Diagnostic Data
CXR 09/24/23- MODERATE ACUTE INTERSTITIAL and ALVEOLAR CARDIOGENIC PULMONARY EDEMA which has markedly increased since 09/23/2023. Small bilateral pleural effusions. Large left lower lobe airspace consolidation (probably atelectasis). Moderate
cardiomegaly.
Chest x-ray from 04/22/2014 revealed no active disease. She has not had any new x-ray in the interim. Her pulmonary function test from 2012 was also re-reviewed.
CXR 04/23/23 ([facility]): reviewed on CD. Chronic changes left base.
Chest x-ray 05/07/23-mild blunting of bilateral costophrenic angles representing chronic pleural thickening, interval improvement in previously seen small bilateral pleural effusions.
Chest x-ray 06/03/23-mild cardiomegaly, unchanged
Lower extremity ultrasound 05/07/23-no evidence for DVT bilaterally.
VQ scan 05/07/23-low probability for pulmonary embolism
Abdominal CT 12/20/18 reveals clear lung bases per my review. Report suggests possible abnormal ilium. CT abdomen 01/05/18 reveals small bilateral pleural effusion and mild reticular thickening with interlobular septa.
CT CHEST 09/20/23-There is small left-sided pleural effusion with moderate parenchymal air space disease at the left lung base which may be atelectasis or pneumonia. There is small right-sided pleural effusion with underlying compressive atelectasis
at the posterior medial right lung base. Atherosclerosis. Cardiomegaly.
CT chest 10/27/17 reveals mild interstitial changes with ground glass abnormality image 37 with mild pleural effusion. Chest x-ray 08/15/18 reveals mild left lower lobe pneumonia. Chest x-ray 08/11/18 reveals bilateral patchy infiltrates.
PFT 04/02/18: FVC 2.41/111%, FEV1 1.94/122% ratio 80, TLC 3.53/80%, DLCO 12.11/69%.
[place] 05/01/23: FVC 1.32/59%, FEV1 1.07/65%, ratio 81. This has worsened
6MWT 05/01/23: Patient and related 300 feet for 3 minutes. Desaturation blessing 93% on room air, heart rate 88. Dyspnea scale 6/10.
ECHO 09/25/23: �Normal left ventricular chamber size. �Mild concentric left ventricular hypertrophy.�Moderately reduced left ventricular systolic function.�Global hypokinesis.�Left ventricular ejection fraction is 30-35%.�Normal right ventricular
size and function.�Moderate mitral regurgitation.�Mild aortic regurgitation.�Estimated pulmonary artery pressure of 45 mmHg.�Assuming a right atrial pressure of 3 mmHg.�Pulmonic valve is grossly normal but poorly visualized.�Pleural effusion
present.�The IVC is of normal size and demonstrates normal respiratory variation.�Compared to August 2023 Ejection fraction is now moderately reduced to 30%�compared to 40-45% in August.
Echo 03/04/23: Normal biventricular function, mild mitral regurgitation, aortic stenosis. Compared to prior study in 2018, EF has improved
All relevant imaging reviewed.
Subjective Data
-
Date of Service:
Date of Service: September 28, 2023
Chief Complaint: Pulmonary Follow Up and Dyspnea Follow Up
Subjective:
Overall feels a little better, no shortness of breath at rest, chest pain, productive cough, abdominal pain, and appetite improved
Review of Systems
General: Other (Per HPI)
Objective Data
Data Reviewed
Vital Signs / I&O:
Vital Signs
Temp Pulse Resp BP Pulse Ox
98.2 F 106 16 168/81 97
09/28/23 07:47 09/28/23 08:58 09/28/23 07:47 09/28/23 08:58 09/28/23 08:53
Intake and Output
09/27/23 09/28/23 09/29/23
06:59 06:59 06:59
Intake Total 1105 / 1105 480 / 480
Output Total 320 / 320 400 / 400
Balance 785 / 785 80 / 80
SaO2: 97
Nasal Cannula flow liters per minute: 2
Physical Exam
General: Respiratory Distress (n), Comfortable and Other (NAD)
HEENT: Normocephalic, Anicteric and Moist Mucous Membranes
Cardiovascular: Regular Rhythm, Murmur (n) and Rub (n)
Respiratory: Clear, Wheeze (n), Crackles (Few basilar), Rhonchi (n), Non-Labored Respirations, Accessory Resp Muscle Use (n) and Stridor (n)
GI: Soft, Non Distended and Non Tender
Neurology: Awake, Alert, No Motor Deficits and Lethargic (Sleeping comfortably)
Skin: Warm, Good Color, Cyanosis (n), Bruising (Scattered ecchymoses) and Other (Right radial pseudoaneurysm)
Labs/Micro/Reports
Lab Data
09/28/23 09:00
09/28/23 05:03
[2023-09-28 11:54] VITALS: BP 170/91
--- NOTE | 2023-09-28 12:15 | W.PN.HOSP.TC ---
Today's Communication/Plan
-
Continue monitoring renal function for recovery
Maintain Whitley catheter
Discontinue doxycycline, continue Rocephin
Assessment / Plan
Assessment / Plan
# Acute on chronic hypoxic respiratory failure
# Acute on chronic HFpEF exacerbation (Chronically on 2L)
-Amiodarone to continue
-Incentive spirometer, Acapella
-Continue lasix on hold. f/u renal function.
-resume back on eliquis/plavix.
#CMARON on CKDIIIb
-No significant improvement in creatinine 3.2 BUN 85
-Maintain Whitley catheter for urine output measurement
#RLL pneumonia
B/l Pleural effusion
-Versus worsening pleural effusion
-CT chest images reviewed from admission, small effusion and not amenable to thoracentesis
-Repeat cxr on 09/25 showing increase opacity in left costodiaphragmatic region
-Patient already finished 5 days of doxycycline therapy
-Leukocytosis bit better today after addition of Rocephin continue. DCed doxycycline
-Left side US report pending
# Non-Ischemic Myocardial Injury
-2/2 to acute chf and afib
-no chest pain
-cards consulted
# Right radial artery pseudoaneurysm
-had radial art access last month
-confirmed with vasc US
-Vasc surg attempted sx under localized nerve block but patient had panic attack/hypoxia and sx was postponed as family declined to convert to [place]
# Nausea/vomiting - resolved
- no signs of acute abdomen
- symptomatic care
# Weight Loss
-has admitted to decrease PO intake/lack of appetite - this has also been an issue in the past that has been worked up by GI
-can f/u with GI/PCP outpatient for cancer screening if deems necessary: follows with Dr. Acevedo
-no n/v at this time
Poor Afib (unspecified)� control
CAD s/p PCI on 09/03/23
HLD
Hypothyroidism, f/u free t4
Spinal stenosis
PMR
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
Intermittent postprandial pain - Was ebvaluated by GI on 08/29/23 - PPI and outpatient follow up recommended with PMHx of weight loss
DVT ppx - on Eliquis
Full code
09/27 patient suggesting not wanting any further treatment. Briefly discussed if patient wanted to pursue hospice although patient tracked back on her decision. Discussed possible switching resuscitation measures to DNR/DNI as well. Patient stated
that she will talk to her case today and will inform us.
Anticipated Discharge: 24 - 48 hours
Subjective/Interval History
-
Date of Service: September 28, 2023
no complains overnight
patient suggesting that she does not want for any further treatments
Having some epigastric pain
Objective Data
-
Labs:
Laboratory Results
09/28/23 09/28/23
05:03 09:00
WBC 11.8 H
Hgb 11.8 L
Hct 36.1 L
Plt Count 212
Sodium 136
Potassium 4.3
Chloride 95 L
Carbon Dioxide 31 H
BUN 85 H
Creatinine 3.2 H
Glucose 92
Calcium 8.7
Vital Signs:
Vital Signs
Temp Pulse Resp BP Pulse Ox
97.4 F 101 16 170/91 94
09/28/23 11:54 09/28/23 11:54 09/28/23 11:54 09/28/23 11:54 09/28/23 11:54
I&O
09/27/23 09/28/23 09/29/23
06:59 06:59 06:59
Intake Total 1105 / 1105 480 / 480
Output Total 320 / 320 400 / 400
Balance 785 / 785 80 / 80
Review of Systems
-
Respiratory: Reports Trouble Breathing
Cardiac: Reports No Symptoms
Abdomen/GI: Reports Abdominal Pain
Physical Exam
-
General: Conversant, Appears Chronically Ill and Obese
HEENT: Oxygen
Respiratory: Clear to Auscultation; Negative Wheezes or Rales
Cardiac: Regular Rhythm and S1/S2; Negative Murmur
GI: Soft, Nontender and Nondistended
Musculoskeletal: No Edema and Other (Right wrist pseudoaneurysm)
Neuro: Awake and Oriented
--- NOTE | 2023-09-28 12:58 | W.PN.CARDCBS ---
Today's Communication / Plan
-
Gentle IVF, reassess renal function tomorrow
Monitor I/Os
Encourage PO
If no change to renal function, consider RHC next week
Impression / Plan
-
PCP: Dr. Wilbert Figueroa
Head Men'S Golf Coach: Dr. Santos
Impression:
Presented with profound generalized weakness 09/19/23
Recent admission with weight loss, dysphagia, presbyesophagus, Afib s/p CV and PCI 08/27/23 until 09/11/23
Acute hypoxic respiratory insufficiency 09/24/23
Abnormal CXR with B/L interstitial infiltrates concerning for pneumonitis vs pulmonary edema 09/23/23
Acute on chronic HFpEF, improved
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
Elevated Troponin
Right radial artery pseudoaneurysm
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
Paroxysmal typical atrial flutter
s/p transiently successful CV 09/08/23
recurrent Afib/flutter 09/09/23
Amiodarone initiated 09/05/2023 status post load
Eliquis initiated 09/05/2023
CAD
PCI LAD 2004 ([facility])
PCI RCA 07/2010 ([facility])
s/p OM stent 10/08/17 with residual 40% stenosis of mid LAD and 50-60% stenosis of prox PDA
s/p 2.5 mm Xience to mid LAD 09/04/23
HTN
Hypertension
Mild peak/mean 22/13 mmHg and TAM 1.4 cm sq by echo 05/2023
HTN
Psoriatic arthritis
Polymyalgia rheumatica
Hyperlipidemia
Hx interstitial lung disease on chronic oxygen at 2 L continuously
Hypothyroidism
Anxiety
Fibromyalgia
Chronic dyspnea
Hx cervical radiculopathy
Statin intolerance
Hx left rotator cuff tear
Urethral stone w/ hydronephrosis 01/2018
Shingles 09/2022
Syncope 09/2022 in setting of GI illness/dehydration
Chronic pain syndrome on oxycodone daily
Echo 01/06/18:�Mild LVH, EF 50-55% possible lateral hypokinesis, normal RV, severely dilated LA, Mild to moderate MR, Mild aortic stenosis, peak/mean gradient 29/16, aortic valve area 1.6 cm�, Mild TR, pulmonary pressure 51-56 mmHg
Echo October 2018: Ejection fraction 60-65 percent, mild MR, mild , mild-moderate AI�������
Echo 07/2020: EF 60-65%, mild with MPG 14 mm Hg, TAM 1.7 cm2.
Echo 03/04/23:�EF 55-60% with mild MR, mild , aortic root 4 cm, trace pericardial effusion
Echo 06/04/23: EF 55 to 60%, mild concentric LVH, mild mitral stenosis with mean transmitral gradient 6 mmHg, moderate MR, mild peak/mean gradient 22/13 mmHg and TAM 1.4 cm sq, trace TR with pulmonary artery systolic pressure 26 mmHg mildly
dilated aortic root
Echo 08/28/23: EF 40-45%, pleural effusion, not assessed
JIAN 09/08/23: EF 40-45%, mod to sev MR, evidence of
TTE 09/26/23: EF 30-35%, mod MR, mild AI, aortic sclerosis no stenosis, PASP 45 mmHg
Plan:
-Patient was admitted 08/27/23 until 09/11/23 with weight loss and dysphagia and also new Afib/flutter. During that admission she had GI work-up that revealed presbyesophagus. She also had an abnormal stress test that led to cath with LAD PCI. After
cath patient had JAIN/CV with roman catholic of SR. She was discharged to home 09/11/23 following amiodarone load. She returned to 09/19/23 with CHF. Patient was diuresed with Lasix 40 mg IV daily. Cre was 2.9 on admission and peaked at 3.0. Cre seemed
to improve with IV diuresis and was 1.8 on 09/24/23. Patient was seen by vascular surgery for right wrist pain. Patient had cath via right radial approach and radial u/s 09/05/23 did not show radial aneurysm. Patient was given option of SNF vs VN at
last d/c and opted for home with VN. She does not have [employer] because the of hidden fees during the signup process. Upon return to [facility] her right wrist was increasingly swollen and painful so repeat right radial u/s performed and she now has a right
radial artery pseudoaneurysm. Patient presented to OR for repair using regional block and Versed and patient had orthopnea and hypoxia on the table and procedure cancelled. Patient is high risk for general anesthesia.
-Appreciate Pulmonology consultation. Patient reports symptomatic improvement with IV diuresis overnight. Lasix was increased to 40 mg IV BID 09/24/23. Patient laying flat in room wearing oxygen at 2 L NC on 09/25/23.; remains on 2L NC (patient
reports she only uses at night), now lasix on hold
-Recheck echo to reassess gradients. has not been assessed since 05/2023 and patient with recurrent acute HF --> EF now 30-35%, no , mild AI, mod MR
-Weight is down 3 lbs. Patient is below previous dry weight
-Cre was 1.8 on 09/24/23 and now 2.2 on 09/25/23, 2.8 09/25, 3.3 09/26, 3.2 09/27; will hold lasix, nephrology following; encourage PO, gentle IVF and reassess tomorrow
-Doxycycline for B/L interstitial infiltrates now rocephin per primar
-Troponin was 0.041 pn admission and then 0.048 -> 0.36 on 09/24 downtrending
-Lasix dose of Plavix was 09/23/23, currently no plans to return to OR for radial artery repair. Will restart Plavix s/p LAD stent 09/04/23
-Remains in rapid atrial flutter by last ECG 09/24/23. Tele reviewed by me and remains in Afib/flutter with HRs less than 100 on usual dose of Toprol XL 50 mg BID and now on amiodarone 200 mg daily after completing 5+ gram load last admission.
-Eliquis 2.5 mg BID on hold, last dose 09/23/23 AM. No plans for surgery so will restart Eliquis after CV 09/08/23; Hg stable
Progress Note - Head Men'S Golf Coach
Subjective
Date of Service: September 28, 2023
Patient seen and examined this morning. No acute events overnight. Patient reporting no appetite, mild discomfort with ensure ingestion, little/no PO intake. Laying flat without SOB, pnd, orthopnea. No cp, palpitations, or edema.
Objective
Labs:
09/28/23 09:00
09/28/23 05:03
Labs
Hgb 11.8 g/dL (12.0-16.0) L 09/28/23 09:00
Hct 36.1 % (37.0-47.0) L 09/28/23 09:00
Plt Count 212 10^3/uL (130-400) 09/28/23 09:00
Sodium 136 mmol/L (135-145) 09/28/23 05:03
Potassium 4.3 mmol/L (3.5-5.1) 09/28/23 05:03
BUN 85 mg/dl (7-17) H 09/28/23 05:03
Creatinine 3.2 mg/dL (0.6-1.0) H 09/28/23 05:03
Glucose 92 mg/dl (70-99) 09/28/23 05:03
Troponins
09/26/23 09/26/23
05:19 14:19
Troponin I Cancelled 0.040 H*
Vital Signs and I&O:
Vital Signs
Temp Pulse Resp BP Pulse Ox
97.4 F 101 16 170/91 94
09/28/23 11:54 09/28/23 11:54 09/28/23 11:54 09/28/23 11:54 09/28/23 11:54
Vital Signs
Temp Pulse Resp BP Pulse Ox
97.4 F 101 16 170/91 94
09/28/23 11:54 09/28/23 11:54 09/28/23 11:54 09/28/23 11:54 09/28/23 11:54
Intake & Output
09/26/23 09/27/23 09/28/23 09/29/23
06:59 06:59 06:59 06:59
Intake Total 240 / 240 1105 / 1105 480 / 480
Output Total 170 / 170 320 / 320 400 / 400
Balance 70 / 70 785 / 785 80 / 80
Physical Exam
Physical Exam
GEN: No distress, awake, Ox3
HEENT: supple, anicteric, mmm
LUNGS: scatt rhonchi, decreased breath sounds L>R
CV: Irreg, S1/S2, 1/6 syst LSB, no gallop
ABD: soft, BS+, NT/ND
EXT: R pseudoaneurysm; no edema BL LE, warm extremities
NEURO: Gross non-focal
SKIN: No rash
[2023-09-28] MEDS: NSS 500 IV (13:36)
--- NOTE | 2023-09-28 13:36 | W.PN.NEPH.PH ---
Today's Communication / Plan
-
hold lasix
follow bmp
Assessment/Plan
-
Impression:
CAMRON
CKD 3b ~1.8
Ischemic cardiomyopathy with EF of 30 to 35%
Interstitial lung disease on chronic O2 therapy
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
Presbyesophagus
Recurrent atrial fibs and flutter
Coronary artery disease
History of HTN
Psoriatic arthritis
Plan:
CAMRON
-Recent urinalysis was bland and no current evidence of obstructive uropathy but will follow-up with post void bladder scan
-I suspect her underlying acute kidney injury is due to possible underlying cardiorenal causality versus overdiuresis
-creatinine down to 3.2 and oliguric ~400cc
-Diuretics currently held, difficult to tell whether underlying hypoxia is due to congestive heart failure versus interstitial lung disease,
-Hemodynamically stable on current antihypertensives
-Right heart cath would be ultimately be more helpful in determining volume status and diuretic administration however patient's anxiety has precluded procedures including right radial artery repair
-
-
-
Date of Service: September 28, 2023
CC / HPI / ROS
-
Chief Complaint:
CAMRON
History of Present Illness:
hemodynamically stable
creatinine down to 3.2 (lasix held)
Review of Systems:
oliguric
no fevers
sob
carlos
weights down
Labs
-
Labs:
WBC 11.8 10^3/uL (4.8-10.8) H 09/28/23 09:00
RBC 3.89 10^6/uL (4.20-5.40) L 09/28/23 09:00
Hgb 11.8 g/dL (12.0-16.0) L 09/28/23 09:00
Hct 36.1 % (37.0-47.0) L 09/28/23 09:00
Plt Count 212 10^3/uL (130-400) 09/28/23 09:00
Sodium 136 mmol/L (135-145) 09/28/23 05:03
Potassium 4.3 mmol/L (3.5-5.1) 09/28/23 05:03
Chloride 95 mmol/L (98-107) L 09/28/23 05:03
Carbon Dioxide 31 mmol/L (22-30) H 09/28/23 05:03
BUN 85 mg/dl (7-17) H 09/28/23 05:03
Creatinine 3.2 mg/dL (0.6-1.0) H 09/28/23 05:03
eGFR 13.50 09/28/23 05:03
Glucose 92 mg/dl (70-99) 09/28/23 05:03
Calcium 8.7 mg/dl (8.4-10.2) 09/28/23 05:03
Dqo-B-Kujczhkygph Pept 26414 pg/ml 09/19/23 19:07
Albumin 3.2 g/dl (3.5-5.0) L 09/21/23 07:10
Physical Exam
-
Vital Signs:
Vital Signs
Temp Pulse Resp BP Pulse Ox
97.4 F 101 16 170/91 94
09/28/23 11:54 09/28/23 11:54 09/28/23 11:54 09/28/23 11:54 09/28/23 11:54
Cardiovascular:: Regular rate and rhythm
Respiratory:: Bilateral: Coarse
Lung Excursion:: Normal
Abdomen:: Nontender
Bowel Sounds:: Normal
Extremity Edema:: +1: Bilateral:
Carlos Catheter: Yes
[2023-09-28] MEDS: STERILE WATER FOR INJECTION 10 ML IV (14:48)
[2023-09-28] MEDS: FLUSH (NSS) 1 FLUSH IV (14:48)
[2023-09-28] MEDS: ROCEPHIN 1000 MG IV (14:48)
--- NOTE | 2023-09-28 14:51 | CM ---
Patient seen bedside with several family members. CM provided list of accepting SNF's, pending bed availability day of discharge. CM will continue to follow for discharge planning needs.
Plan; SNF pending accepting facility when medically stable.
[2023-09-28 15:18] VITALS: BP 107/78
--- NOTE | 2023-09-28 15:40 | PTCARENOTE ---
Pt AAO x3, CAMERON; OOB to chair with assist x1/cane; tires easily. CAMERON slowly. VSS. Telemetry:A fib. Currently on nc 2 lpm- pulseox 100%, pt with marked LOVELACE/tachypnea with any activity; frequent loose cough- small amts dark yellow mucus. Abd soft,
rounded, irving PO, appetite poor. Whitley P/I small amts clear roni urine. Multiple ecchymotic areas on all extremities. IV NSS @ 75 ml/hr infusing via Lt midline site without sx of infiltration. Resting quietly at present, multiple visitors at
bedside. Will continue to monitor.
[2023-09-28] MEDS: DELTASONE 5 MG PO (17:27)
[2023-09-28] MEDS: LIPITOR 40 MG PO (17:27)
[2023-09-28] MEDS: ZETIA 10 MG PO (17:27)
[2023-09-28 19:55] VITALS: BP 156/79
[2023-09-28] MEDS: PEPCID 20 MG PO (22:07)
[2023-09-28 23:54] VITALS: BP 152/69
[2023-09-29] VITALS (8 sets, daily range): BP systolic 100–191; BP diastolic 74–108; BMI 29.4
[2023-09-29] MEDS: SYNTHROID 75 MCG PO (06:06)
[2023-09-29 06:07] LABS: Blood Urea Nitrogen 87 mg/dl (7-17); Calcium 8.7 mg/dl (8.4-10.2); Carbon Dioxide 31 mmol/L (22-30); Chloride 99 mmol/L (98-107); Estimated Creatinine Clearance 13 ml/min; Glucose 95 mg/dl (70-99); Potassium 4.3 mmol/L (3.5-5.1); Sodium 136 mmol/L (135-145)
[2023-09-29] MEDS: EFFEXOR XR 75 MG PO (07:43)
[2023-09-29] MEDS: ELIQUIS 2.5 MG PO ×2 (07:43→20:01)
[2023-09-29] MEDS: DESENEX/MITRAZOL/ZEASORB 1 APPLIC TOPICAL ×2 (07:43→22:03)
[2023-09-29] MEDS: PACERONE 200 MG PO (07:43)
[2023-09-29] MEDS: PROTONIX 40 MG PO (07:43)
[2023-09-29] MEDS: ZOFRAN 4 MG IV (07:44)
[2023-09-29] MEDS: PLAVIX 75 MG PO (07:44)
[2023-09-29] MEDS: TOPROL XL 50 MG PO ×2 (07:44→20:00)
--- NOTE | 2023-09-29 09:14 | W.PN.PUL3 ---
Today's Communication / Plan
-
Thora today, please send for cultures/lytes
Abd pain, AXR ordered
Diuresis on hold, renal/cards following
Possible RHC planning
Stable on her home O2 use
Encourage OOB/PT
Assessment
-
88-year-old female with complex cardiopulmonary history on chronic oxygen therapy, recent cardiac catheterization with LAD stent placement 09/04/2023, NSTEMI 09/01/2023, abnormal stress test, newly diagnosed atrial flutter with RVR 08/27/2023 on
amiodarone therapy since 09/05/2023, readmitted 09/19/2023, treated for heart failure found to have right radial artery pseudoaneurysm. Creatinine improved from 2.9-1.8 during hospital stay. Chest x-ray 09/22 showed questionable bilateral pneumonia.
Patient had acute episode of shortness of breath, orthopnea following regional block on 09/24/2023. Family did not want to pursue intubation for radial artery repair. We are asked to help from pulmonary standpoint.
Acute hypoxic respiratory insufficiency
Acute on chronic heart failure exacerbation with reduced EF - 30%
Orthopnea
Edema and congestion/cardiomeg on imaging
General fatigue, weakness, anorexia
Nausea/emesis/diarrhea preadmission
Atrial fibrillation/atrial flutter, newly diagnosed 08/27/2023
Acute on chronic renal insufficiency
Creatinine 2.9 on admission, improved to 1.8
Right radial artery pseudoaneurysm
Aortic stenosis, valve area 1.4 cm
Conditions present prior to admission:
ILD, on chronic oxygen therapy, 2 L
Obstructive sleep apnea suspected-reportedly negative studies in the past-positional therapy recommended.
Nocturnal hypoxemia
Hypothyroid.�
Fibromyalgia.�
CAD/stent.�
PMR
Osteoporosis.�
Hyperlipidemia.�
Psoriatic arthritis on chronic low-dose prednisone therapy
Followed by rheumatology.�
GERD.
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
Biliary dilation/cholecystectomy.� Bilateral TKR.� Right and left THP.� Back surgery..
Family history of lung cancer
Plan
98% on 2L NC, stable
Continue supplemental oxygen as needed
Establish home oxygen needs prior to discharge-now nearly back to her baseline-chronically on 2 L
Continue nebulizers as needed
No need for steroids
Chest x-ray 09/26/2023-persistent cardiomegaly, slightly worsened aeration with increased interstitial edema and small left pleural effusion
Left chest ultrasound 09/24/2023-showing large L sided effusion
IR consult for L thora, please send for cultures/chemistry
She has never had a thora before
Continue diuresis as tolerated-diuretics on hold
Serum creatinine rising-renal following
Monitor renal function, electrolytes, intake/output, lower extremity edema and weight
Replace electrolytes as needed
Cardiology following-correspondence reviewed-diuretics on hold
Monitor rhythm and rate control
Patient on amiodarone
Note: EF 30-40%
Possible plan for RHC
Complaints of abdominal pain
Will obtain AXR to evaluate
Cultures reviewed
Finite course of antibiotics
Monitor leukocytosis
Right radial pseudoaneurysm noted, being followed by vascular
Unclear whether we will be able to pursue repair
DVT prophylaxis-on Eliquis
GI prophylaxis-on pantoprazole
Nutrition
Physical therapy
Diagnostic Data
CXR 09/24/23- MODERATE ACUTE INTERSTITIAL and ALVEOLAR CARDIOGENIC PULMONARY EDEMA which has markedly increased since 09/23/2023. Small bilateral pleural effusions. Large left lower lobe airspace consolidation (probably atelectasis). Moderate
cardiomegaly.
Chest x-ray from 04/22/2014 revealed no active disease. She has not had any new x-ray in the interim. Her pulmonary function test from 2012 was also re-reviewed.
CXR 04/23/23 ([facility]): reviewed on CD. Chronic changes left base.
Chest x-ray 05/07/23-mild blunting of bilateral costophrenic angles representing chronic pleural thickening, interval improvement in previously seen small bilateral pleural effusions.
Chest x-ray 06/03/23-mild cardiomegaly, unchanged
Lower extremity ultrasound 05/07/23-no evidence for DVT bilaterally.
VQ scan 05/07/23-low probability for pulmonary embolism
Abdominal CT 12/20/18 reveals clear lung bases per my review. Report suggests possible abnormal ilium. CT abdomen 01/05/18 reveals small bilateral pleural effusion and mild reticular thickening with interlobular septa.
CT CHEST 09/20/23-There is small left-sided pleural effusion with moderate parenchymal air space disease at the left lung base which may be atelectasis or pneumonia. There is small right-sided pleural effusion with underlying compressive atelectasis
at the posterior medial right lung base. Atherosclerosis. Cardiomegaly.
CT chest 10/27/17 reveals mild interstitial changes with ground glass abnormality image 37 with mild pleural effusion. Chest x-ray 08/15/18 reveals mild left lower lobe pneumonia. Chest x-ray 08/11/18 reveals bilateral patchy infiltrates.
PFT 04/02/18: FVC 2.41/111%, FEV1 1.94/122% ratio 80, TLC 3.53/80%, DLCO 12.11/69%.
Toni 05/01/23: FVC 1.32/59%, FEV1 1.07/65%, ratio 81. This has worsened
6MWT 05/01/23: Patient and related 300 feet for 3 minutes. Desaturation blessing 93% on room air, heart rate 88. Dyspnea scale 6/10.
ECHO 09/25/23: �Normal left ventricular chamber size. �Mild concentric left ventricular hypertrophy.�Moderately reduced left ventricular systolic function.�Global hypokinesis.�Left ventricular ejection fraction is 30-35%.�Normal right ventricular
size and function.�Moderate mitral regurgitation.�Mild aortic regurgitation.�Estimated pulmonary artery pressure of 45 mmHg.�Assuming a right atrial pressure of 3 mmHg.�Pulmonic valve is grossly normal but poorly visualized.�Pleural effusion
present.�The IVC is of normal size and demonstrates normal respiratory variation.�Compared to August 2023 Ejection fraction is now moderately reduced to 30%�compared to 40-45% in August.
Echo 03/04/23: Normal biventricular function, mild mitral regurgitation, aortic stenosis. Compared to prior study in 2018, EF has improved
All relevant imaging reviewed.
Subjective Data
-
Date of Service:
Date of Service: September 29, 2023
Chief Complaint: Pulmonary Follow Up and Dyspnea Follow Up
Subjective:
patient seen and examined, laying in bed
complaints of abdominal pain at epigastric area, bloating
no new SOB
planning for thora today
Objective Data
Data Reviewed
Vital Signs / I&O / Oxygen:
Vital Signs
Temp Pulse Resp BP Pulse Ox
97.4 F 110 20 158/101 98
09/29/23 07:21 09/29/23 07:21 09/29/23 07:21 09/29/23 07:21 09/29/23 07:21
Intake and Output
09/28/23 09/29/23 09/30/23
06:59 06:59 06:59
Intake Total 480 / 480 1040 / 1040
Output Total 400 / 400 525 / 525
Balance 80 / 80 515 / 515
SaO2 98
Nasal Cannula flow liters per 2
minute
Physical Exam
General: Respiratory Distress (n), Comfortable and Other (NAD)
HEENT: Normocephalic, Anicteric and Moist Mucous Membranes
Cardiovascular: Regular Rhythm, Murmur (n) and Rub (n)
Respiratory: Clear, Wheeze (n), Crackles (Few basilar), Rhonchi (n), Non-Labored Respirations, Accessory Resp Muscle Use (n) and Stridor (n)
GI: Soft, Non Distended and Non Tender
Neurology: Awake, Alert, No Motor Deficits and Lethargic (Sleeping comfortably)
Skin: Warm, Good Color, Cyanosis (n), Bruising (Scattered ecchymoses) and Other (Right radial pseudoaneurysm)
Labs/Micro/Reports
Lab Data
09/28/23 09:00
09/29/23 05:16
[2023-09-29 09:46] LABS: LDH 423 U/L (120-246); Total Protein 5.7 g/dl (6.3-8.2)
--- NOTE | 2023-09-29 11:45 | W.PN.NEPH.PH ---
Today's Communication / Plan
-
thoracentesis
Assessment/Plan
-
Impression:
CAMRON
CKD 3b ~1.8
Ischemic cardiomyopathy with EF of 30 to 35%
Interstitial lung disease on chronic O2 therapy
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
Presbyesophagus
Recurrent atrial fibs and flutter
Coronary artery disease
History of HTN
Psoriatic arthritis
Plan:
-for thoracentesis
-would still get RHC tomorrow
-follow BMP
-holding lasix as weights stable
-
-
Date of Service: September 29, 2023
CC / HPI / ROS
-
Chief Complaint:
CAMRON
History of Present Illness:
hemodynamically stable
creatinine down to 2.9
weights stable off lasix
remains on supplemental O2
Review of Systems:
oliguric
no fevers
sob
carlos
Labs
-
Labs:
WBC 11.8 10^3/uL (4.8-10.8) H 09/28/23 09:00
RBC 3.89 10^6/uL (4.20-5.40) L 09/28/23 09:00
Hgb 11.8 g/dL (12.0-16.0) L 09/28/23 09:00
Hct 36.1 % (37.0-47.0) L 09/28/23 09:00
Plt Count 212 10^3/uL (130-400) 09/28/23 09:00
Sodium 136 mmol/L (135-145) 09/29/23 05:16
Potassium 4.3 mmol/L (3.5-5.1) 09/29/23 05:16
Chloride 99 mmol/L (98-107) 09/29/23 05:16
Carbon Dioxide 31 mmol/L (22-30) H 09/29/23 05:16
BUN 87 mg/dl (7-17) H 09/29/23 05:16
Creatinine 2.9 mg/dL (0.6-1.0) H 09/29/23 05:16
eGFR 15.20 09/29/23 05:16
Glucose 95 mg/dl (70-99) 09/29/23 05:16
Calcium 8.7 mg/dl (8.4-10.2) 09/29/23 05:16
Bis-Y-Ebgmnxegaxg Pept 91122 pg/ml 09/19/23 19:07
Albumin 3.2 g/dl (3.5-5.0) L 09/21/23 07:10
Physical Exam
-
Vital Signs:
Vital Signs
Temp Pulse Resp BP Pulse Ox
97.4 F 110 20 158/101 98
09/29/23 07:21 09/29/23 07:21 09/29/23 07:21 09/29/23 07:21 09/29/23 08:00
Cardiovascular:: Regular rate and rhythm
Respiratory:: Bilateral: Coarse
Lung Excursion:: Normal
Abdomen:: Nontender and Soft
Bowel Sounds:: Normal
Extremity Edema:: +1: Bilateral:
--- NOTE | 2023-09-29 12:32 | W.PN.UPDATE ---
Update Note
Progress Note Update
Patient seen at bedside this a.m. with Dr. Whitley. Patient complaining of abdominal pain this morning. Right radial pseudoaneurysm site unchanged, palpable radial pulse. Hand warm.
Patient is not interested in surgical intervention at this time. Patient with family at bedside, agreeable to close follow-up in the office. Will add appointment chart, call with questions.
--- NOTE | 2023-09-29 13:31 | W.PN.CARDCBS ---
Addendum entered and electronically signed by Thaddeus Santos MD 09/29/23 14:11:
I saw and examined the patient.
The MANUFACTURING APPLICATIONS ENGINEER or PA's note was reviewed and I agree with the note.
Comment: General: Well developed, well nourished in NAD.
Neck: Supple, no JVD, HJR, carotids +2 B/L, no bruits bilaterally.
Heart: Non displaced PMI, RRR, no murmurs, No S3, S4, no rubs.
Lungs: Decreased breath sounds left base, scattered rhonchi
Extremities: No clubbing, cyanosis or edema bilaterally.
Neuro: Grossly nonfocal, awake, alert and oriented x3.
She appears comfortable but worn out from multiple hospitalizations. She remains on only 1 L of oxygen. Creatinine has improved to 2.9. She is for left thoracentesis today. Right heart cath is being considered although perhaps may not be needed
as I suspect she may need home oxygen with interstitial lung disease. She will need rehab stay with 2 hospitalizations within 2 weeks. Discussed with family at bedside.
Original Note:
Today's Communication / Plan
-
IR to attempt left thoracentesis today
Lasix on hold
Weight remains below previous dry weight and Cre has improved
Impression / Plan
-
PCP: Dr. Wilbert Figueroa
School Counselor: Dr. Santos
Impression:
Presented with profound generalized weakness 09/19/23
Recent admission with weight loss, dysphagia, presbyesophagus, Afib s/p CV and PCI 08/27/23 until 09/11/23
Acute hypoxic respiratory insufficiency 09/24/23
Abnormal CXR with B/L interstitial infiltrates concerning for pneumonitis vs pulmonary edema 09/23/23
Acute on chronic HFpEF, improved
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
Elevated Troponin
Right radial artery pseudoaneurysm
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
Paroxysmal typical atrial flutter
s/p transiently successful CV 09/08/23
recurrent Afib/flutter 09/09/23
Amiodarone initiated 09/05/2023 status post load
Eliquis initiated 09/05/2023
CAD
PCI LAD 2004 ([facility])
PCI RCA 07/2010 ([facility])
s/p OM stent 10/08/17 with residual 40% stenosis of mid LAD and 50-60% stenosis of prox PDA
s/p 2.5 mm Xience to mid LAD 09/04/23
HTN
Hypertension
Mild peak/mean 22/13 mmHg and TAM 1.4 cm sq by echo 05/2023
HTN
Psoriatic arthritis
Polymyalgia rheumatica
Hyperlipidemia
Hx interstitial lung disease on chronic oxygen at 2 L continuously
Hypothyroidism
Anxiety
Fibromyalgia
Chronic dyspnea
Hx cervical radiculopathy
Statin intolerance
Hx left rotator cuff tear
Urethral stone w/ hydronephrosis 01/2018
Shingles 09/2022
Syncope 09/2022 in setting of GI illness/dehydration
Chronic pain syndrome on oxycodone daily
Echo 01/06/18:�Mild LVH, EF 50-55% possible lateral hypokinesis, normal RV, severely dilated LA, Mild to moderate MR, Mild aortic stenosis, peak/mean gradient 29/16, aortic valve area 1.6 cm�, Mild TR, pulmonary pressure 51-56 mmHg
Echo October 2018: Ejection fraction 60-65 percent, mild MR, mild , mild-moderate AI�������
Echo 07/2020: EF 60-65%, mild with MPG 14 mm Hg, TAM 1.7 cm2.
Echo 03/04/23:�EF 55-60% with mild MR, mild , aortic root 4 cm, trace pericardial effusion
Echo 06/04/23: EF 55 to 60%, mild concentric LVH, mild mitral stenosis with mean transmitral gradient 6 mmHg, moderate MR, mild peak/mean gradient 22/13 mmHg and TAM 1.4 cm sq, trace TR with pulmonary artery systolic pressure 26 mmHg mildly
dilated aortic root
Echo 08/28/23: EF 40-45%, pleural effusion, not assessed
JIAN 09/08/23: EF 40-45%, mod to sev MR, evidence of
TTE 09/26/23: EF 30-35%, mod MR, mild AI, aortic sclerosis no stenosis, PASP 45 mmHg
Plan:
-Cre improved to 2.9 on 09/29/23. Cre peaked at 3.3 on 09/27/23. Appreciate input from Nephrology. RHC being considered.
-Weight is stable at 160 lbs. Peak weight 169 lbs on 09/20/23. Dry weight at last discharge 09/11/23 was 167 lbs.
-Lasix 40 mg IV BID on hold, last dose given 09/25/23 AM. Patient was taking Lasix 40 mg PO daily prior to admission.
-EF down to 30-35% by echo 09/26/23
-GDMT includes Toprol XL 50 mg BID. No MARIANO/ARB due to CAMRON on CKD
-LAD PCI 09/04/23 during last admission. Cont Plavix 75 mg daily. Would repeat echo in 40 days following intervention
-Right radial pseudoaneurysm monitored by vascular surgery team and patient was unable to lay flat for attempted repair 09/24/23. Patient is not interested in another attempt and plan is for observation with ongoing limb restrictions.
-Remains in Afib/flutter with HRs less than 100 on usual dose of Toprol XL 50 mg BID and now on amiodarone 200 mg daily after completing 5+ gram load last admission.
-Eliquis 2.5 mg BID continued after brief interruption for attempt at radial artery repair
-Nephrology note reviewed and there is a plan for left-sided thoracentesis 09/29/23
HPI: Patient was admitted 08/27/23 until 09/11/23 with weight loss and dysphagia and also new Afib/flutter. During that admission she had GI work-up that revealed presbyesophagus. She also had an abnormal stress test that led to cath with LAD PCI.
After cath patient had JIAN/CV with jain of SR. She was discharged to home 09/11/23 following amiodarone load. She returned to 09/19/23 with CHF. Patient was diuresed with Lasix 40 mg IV daily. Cre was 2.9 on admission and peaked at 3.0. Cre
seemed to improve with IV diuresis and was 1.8 on 09/24/23. Patient was seen by vascular surgery for right wrist pain. Patient had cath via right radial approach and radial u/s 09/05/23 did not show radial aneurysm. Patient was given option of SNF vs
VN at last d/c and opted for home with VN. She does not have [facility] because the of hidden fees during the signup process. Upon return to [facility] her right wrist was increasingly swollen and painful so repeat right radial u/s performed and she now has a
right radial artery pseudoaneurysm. Patient presented to OR for repair using regional block and Versed and patient had orthopnea and hypoxia on the table and procedure cancelled. Patient is high risk for general anesthesia.
Progress Note - School Counselor
Subjective
Date of Service: September 29, 2023
Breathing is stable
Objective
Labs:
09/28/23 09:00
09/29/23 05:16
Labs
Hgb 11.8 g/dL (12.0-16.0) L 09/28/23 09:00
Hct 36.1 % (37.0-47.0) L 09/28/23 09:00
Plt Count 212 10^3/uL (130-400) 09/28/23 09:00
Sodium 136 mmol/L (135-145) 09/29/23 05:16
Potassium 4.3 mmol/L (3.5-5.1) 09/29/23 05:16
BUN 87 mg/dl (7-17) H 09/29/23 05:16
Creatinine 2.9 mg/dL (0.6-1.0) H 09/29/23 05:16
Glucose 95 mg/dl (70-99) 09/29/23 05:16
Troponins
09/26/23
14:19
Troponin I 0.040 H*
Vital Signs and I&O:
Vital Signs
Temp Pulse Resp BP Pulse Ox
97.4 F 96 18 161/74 97
09/29/23 11:04 09/29/23 11:04 09/29/23 11:04 09/29/23 11:04 09/29/23 11:04
Vital Signs
Temp Pulse Resp BP Pulse Ox
97.4 F 96 18 161/74 97
09/29/23 11:04 09/29/23 11:04 09/29/23 11:04 09/29/23 11:04 09/29/23 11:04
Intake & Output
09/27/23 09/28/23 09/29/23 09/30/23
06:59 06:59 06:59 06:59
Intake Total 1105 / 1105 480 / 480 1040 / 1040
Output Total 320 / 320 400 / 400 525 / 525
Balance 785 / 785 80 / 80 515 / 515
Physical Exam
Physical Exam
General: NAD, AAO x3
HEENT: EOMI, MMM
Heart: Afib on tele
Lungs: Wearing oxygen at 2 L NC. No audible wheeze.
Abd: ND
Ext: No B/L LE edema
Neuro: Nonfocal
[2023-09-29] MEDS: ROCEPHIN 1000 MG IV (13:47)
[2023-09-29] MEDS: STERILE WATER FOR INJECTION 10 ML IV (13:47)
--- NOTE | 2023-09-29 15:07 | W.PN.HOSP.TC ---
Today's Communication/Plan
-
Thora today
Assessment / Plan
Assessment / Plan
# Acute on chronic hypoxic respiratory failure
# Acute on chronic HFpEF exacerbation (Chronically on 2L) - on 1L today
-Amiodarone to continue
-Incentive spirometer, Acapella
-Continue lasix on hold. f/u renal function.
-resume back on eliquis/plavix.
-Thoracentesis today
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
-gentle fluids yest, mild improvement today
-Maintain Whitley catheter for urine output measurement
-CTM off lasix
#RLL pneumonia
B/l Pleural effusion
-Versus worsening pleural effusion
-CT chest images reviewed from admission, small effusion and not amenable to thoracentesis
-Repeat cxr on 09/25 showing increase opacity in left costodiaphragmatic region
-Patient already finished 5 days of doxycycline therapy
-Thora today
# Non-Ischemic Myocardial Injury
-2/2 to acute chf and afib
-no chest pain
-cards consulted
# Right radial artery pseudoaneurysm
-had radial art access last month
-confirmed with vasc US
-Vasc surg attempted sx under localized nerve block but patient had panic attack/hypoxia and sx was postponed as family declined to convert to [place]
--Patient is not interested in surgical intervention at this time.
-f/u vascular outpatient
# Nausea/vomiting - resolved
- no signs of acute abdomen
- symptomatic care
# Weight Loss
-has admitted to decrease PO intake/lack of appetite - this has also been an issue in the past that has been worked up by GI
-can f/u with GI/PCP outpatient for cancer screening if deems necessary: follows with Dr. Acevedo
-no n/v at this time
Poor Afib (unspecified)� control
CAD s/p PCI on 09/03/23
HLD
Hypothyroidism, f/u free t4
Spinal stenosis
PMR
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
Intermittent postprandial pain - Was ebvaluated by GI on 08/29/23 - PPI and outpatient follow up recommended with PMHx of weight loss
DVT ppx - on Eliquis
Full code
09/27 patient suggesting not wanting any further treatment. Briefly discussed if patient wanted to pursue hospice although patient tracked back on her decision. Discussed possible switching resuscitation measures to DNR/DNI as well. Patient stated
that she will talk to her case today and will inform us.
Total time spent on today's encounter was 50 minutes which included time spent in counseling the patient/family regarding diagnosis and treatment plan as listed above, goals of care, and symptom management. Case was discussed with nursing staff,
specialists, and care coordinators/case management. All labs and imaging personally reviewed by me. Remainder the time spent in detailed review of previous records, lab data, imaging, and other medical provider documentation.
Anticipated Discharge: > 48 hours
Subjective/Interval History
-
Date of Service: September 29, 2023
no acute events overnight
Objective Data
-
Labs:
Laboratory Results
09/29/23
05:16
Sodium 136
Potassium 4.3
Chloride 99
Carbon Dioxide 31 H
BUN 87 H
Creatinine 2.9 H
Glucose 95
Calcium 8.7
Vital Signs:
Vital Signs
Temp Pulse Resp BP Pulse Ox
97.4 F 96 18 161/74 97
09/29/23 11:04 09/29/23 11:04 09/29/23 11:04 09/29/23 11:04 09/29/23 11:04
I&O
09/28/23 09/29/23 09/30/23
06:59 06:59 06:59
Intake Total 480 / 480 1040 / 1040
Output Total 400 / 400 525 / 525
Balance 80 / 80 515 / 515
Review of Systems
-
History Source: Patient
All other systems: Not reviewed unless documented
Physical Exam
-
General: Conversant, Appears Chronically Ill and Obese
HEENT: Oxygen
Respiratory: Clear to Auscultation; Negative Wheezes or Rales
Cardiac: Regular Rhythm and S1/S2; Negative Murmur
GI: Soft, Nontender and Nondistended
Musculoskeletal: No Edema and Other (Right wrist pseudoaneurysm)
Neuro: Awake and Oriented
Data Reviewed
-
CT Scan: Image personally visualized and interpreted and Report Reviewed by me
Labs: Labs Reviewed by me
[2023-09-29 16:16] LABS: Body Fluid Mononuclear 60.9 %; Body Fluid Polymorphonuclear 39.1 %; Body Fluid WBC 501 /CUMM
[2023-09-29 16:17] LABS: Body Fluid Second Tech DB
[2023-09-29 16:26] LABS: Body Fluid Amylase 31 U/L; Body Fluid Glucose 89 mg/dl; Body Fluid LDH 108 U/L; Body Fluid Protein < 2.0 g/dl
[2023-09-29 16:36] LABS: Body Fluid pH 7.45
[2023-09-29] MEDS: ZETIA 10 MG PO (17:50)
[2023-09-29] MEDS: LIPITOR 40 MG PO (17:51)
[2023-09-29] MEDS: DELTASONE 5 MG PO (17:51)
[2023-09-30] VITALS (20 sets, daily range): BP systolic 109–172; BP diastolic 49–145; PULSE 90; O2SAT 94; BMI 29.4
[2023-09-30] MEDS: SYNTHROID 75 MCG PO (06:11)
[2023-09-30 06:47] LABS: Hemoglobin 11.7 g/dL (12.0-16.0); Mean Corp Hgb Conc. 31.6 g/dL (33.0-37.0); Mean Corpuscular Hgb 29.8 pg (27.0-31.0); Mean Corpuscular Volume 94.4 fL (81.0-99.0); Mean Platelet Volume 10.6 fL (7.4-10.4); Platelet Count 208 10^3/uL (130-400); Red Blood Cell Count 3.92 10^6/uL (4.20-5.40); Red Cell Dist. Width 14.8 % (11.5-14.5); White Blood Cell Count 10.8 10^3/uL (4.8-10.8)
[2023-09-30 07:02] LABS: Blood Urea Nitrogen 87 mg/dl (7-17); Calcium 8.6 mg/dl (8.4-10.2); Carbon Dioxide 31 mmol/L (22-30); Chloride 99 mmol/L (98-107); Estimated Creatinine Clearance 13 ml/min; Glucose 93 mg/dl (70-99); Sodium 138 mmol/L (135-145)
[2023-09-30] MEDS: ELIQUIS 2.5 MG PO ×2 (08:51→20:53)
[2023-09-30] MEDS: EFFEXOR XR 75 MG PO (08:51)
[2023-09-30] MEDS: PACERONE 200 MG PO (08:52)
[2023-09-30] MEDS: PROTONIX 40 MG PO (08:52)
[2023-09-30] MEDS: PLAVIX 75 MG PO (08:52)
[2023-09-30] MEDS: TOPROL XL 50 MG PO (08:52)
[2023-09-30] MEDS: DESENEX/MITRAZOL/ZEASORB 1 APPLIC TOPICAL ×2 (08:53→20:53)
--- NOTE | 2023-09-30 09:12 | W.PN.PUL3 ---
Today's Communication / Plan
-
s/p thora with pleural fluid showing transudate, most c/w CHF
RHC planning today
Diuresis per team
Wean o2 further as tolerated
AXR showing gas w/o obstruction
Assessment
-
88-year-old female with complex cardiopulmonary history on chronic oxygen therapy, recent cardiac catheterization with LAD stent placement 09/04/2023, NSTEMI 09/01/2023, abnormal stress test, newly diagnosed atrial flutter with RVR 08/27/2023 on
amiodarone therapy since 09/05/2023, readmitted 09/19/2023, treated for heart failure found to have right radial artery pseudoaneurysm. Creatinine improved from 2.9-1.8 during hospital stay. Chest x-ray 09/22 showed questionable bilateral pneumonia.
Patient had acute episode of shortness of breath, orthopnea following regional block on 09/24/2023. Family did not want to pursue intubation for radial artery repair. We are asked to help from pulmonary standpoint.
Acute hypoxic respiratory insufficiency
Acute on chronic heart failure exacerbation with reduced EF - 30%
Orthopnea
Edema and congestion/cardiomeg on imaging
General fatigue, weakness, anorexia
Nausea/emesis/diarrhea preadmission
Atrial fibrillation/atrial flutter, newly diagnosed 08/27/2023
Acute on chronic renal insufficiency
Creatinine 2.9 on admission, improved to 1.8
Right radial artery pseudoaneurysm
Aortic stenosis, valve area 1.4 cm
Conditions present prior to admission:
ILD, on chronic oxygen therapy, 2 L
Obstructive sleep apnea suspected-reportedly negative studies in the past-positional therapy recommended.
Nocturnal hypoxemia
Hypothyroid.�
Fibromyalgia.�
CAD/stent.�
PMR
Osteoporosis.�
Hyperlipidemia.�
Psoriatic arthritis on chronic low-dose prednisone therapy
Followed by rheumatology.�
GERD.
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
Biliary dilation/cholecystectomy.� Bilateral TKR.� Right and left THP.� Back surgery..
Family history of lung cancer
Plan
98% on 2L NC, stable
Continue supplemental oxygen as needed
Establish home oxygen needs prior to discharge-now nearly back to her baseline-chronically on 2 L
Continue nebulizers as needed
No need for steroids
Chest x-ray 09/26/2023-persistent cardiomegaly, slightly worsened aeration with increased interstitial edema and small left pleural effusion
Left chest ultrasound 09/24/2023-showing large L sided effusion
IR consult for L thora, s/p thora 09/28 with removal of 900mL
Chemistry pH 7.45 - wbc 501 - glu 89 - tp <2.0 - ldh 108--transudative pleural studies
Culture no growth to date, cyto pending
Most consistent with CHF
Continue diuresis as tolerated-diuretics on hold
Serum creatinine rising-renal following
Monitor renal function, electrolytes, intake/output, lower extremity edema and weight
Replace electrolytes as needed
Cardiology following-correspondence reviewed-diuretics on hold
Monitor rhythm and rate control
Patient on amiodarone
Note: EF 30-40%
Plan for RHC--we will follow pressures/results
Complaints of abdominal pain
Will obtain AXR to evaluate--gas/bloating
Simethicone PRN
Cultures reviewed
Finite course of antibiotics
Monitor leukocytosis
Right radial pseudoaneurysm noted, being followed by vascular
Unclear whether we will be able to pursue repair
DVT prophylaxis-on Eliquis
GI prophylaxis-on pantoprazole
Nutrition
Physical therapy
Diagnostic Data
CXR 09/24/23- MODERATE ACUTE INTERSTITIAL and ALVEOLAR CARDIOGENIC PULMONARY EDEMA which has markedly increased since 09/23/2023. Small bilateral pleural effusions. Large left lower lobe airspace consolidation (probably atelectasis). Moderate
cardiomegaly.
Chest x-ray from 04/22/2014 revealed no active disease. She has not had any new x-ray in the interim. Her pulmonary function test from 2012 was also re-reviewed.
CXR 04/23/23 ([facility]): reviewed on CD. Chronic changes left base.
Chest x-ray 05/07/23-mild blunting of bilateral costophrenic angles representing chronic pleural thickening, interval improvement in previously seen small bilateral pleural effusions.
Chest x-ray 06/03/23-mild cardiomegaly, unchanged
Lower extremity ultrasound 05/07/23-no evidence for DVT bilaterally.
VQ scan 05/07/23-low probability for pulmonary embolism
Abdominal CT 12/20/18 reveals clear lung bases per my review. Report suggests possible abnormal ilium. CT abdomen 01/05/18 reveals small bilateral pleural effusion and mild reticular thickening with interlobular septa.
CT CHEST 09/20/23-There is small left-sided pleural effusion with moderate parenchymal air space disease at the left lung base which may be atelectasis or pneumonia. There is small right-sided pleural effusion with underlying compressive atelectasis
at the posterior medial right lung base. Atherosclerosis. Cardiomegaly.
CT chest 10/27/17 reveals mild interstitial changes with ground glass abnormality image 37 with mild pleural effusion. Chest x-ray 08/15/18 reveals mild left lower lobe pneumonia. Chest x-ray 08/11/18 reveals bilateral patchy infiltrates.
PFT 04/02/18: FVC 2.41/111%, FEV1 1.94/122% ratio 80, TLC 3.53/80%, DLCO 12.11/69%.
[place] 05/01/23: FVC 1.32/59%, FEV1 1.07/65%, ratio 81. This has worsened
6MWT 05/01/23: Patient and related 300 feet for 3 minutes. Desaturation blessing 93% on room air, heart rate 88. Dyspnea scale 6/10.
ECHO 09/25/23: �Normal left ventricular chamber size. �Mild concentric left ventricular hypertrophy.�Moderately reduced left ventricular systolic function.�Global hypokinesis.�Left ventricular ejection fraction is 30-35%.�Normal right ventricular
size and function.�Moderate mitral regurgitation.�Mild aortic regurgitation.�Estimated pulmonary artery pressure of 45 mmHg.�Assuming a right atrial pressure of 3 mmHg.�Pulmonic valve is grossly normal but poorly visualized.�Pleural effusion
present.�The IVC is of normal size and demonstrates normal respiratory variation.�Compared to August 2023 Ejection fraction is now moderately reduced to 30%�compared to 40-45% in August.
Echo 03/04/23: Normal biventricular function, mild mitral regurgitation, aortic stenosis. Compared to prior study in 2018, EF has improved
All relevant imaging reviewed.
Subjective Data
-
Date of Service:
Date of Service: September 30, 2023
Chief Complaint: Pulmonary Follow Up and Dyspnea Follow Up
Subjective:
no acute events ON
RHC planning
Objective Data
Data Reviewed
Vital Signs / I&O / Oxygen:
Vital Signs
Temp Pulse Resp BP Pulse Ox
97.4 F 95 18 140/77 100
09/30/23 07:55 09/30/23 08:52 09/30/23 07:55 09/30/23 08:52 09/30/23 07:55
Intake and Output
09/29/23 09/30/23 10/01/23
06:59 06:59 06:59
Intake Total 1040 / 1040 960 / 960
Output Total 525 / 525 525 / 525
Balance 515 / 515 435 / 435
SaO2 100
Nasal Cannula flow liters per 2
minute
Physical Exam
General: Respiratory Distress (n), Comfortable and Other (NAD)
HEENT: Normocephalic, Anicteric and Moist Mucous Membranes
Cardiovascular: Regular Rhythm, Murmur (n) and Rub (n)
Respiratory: Clear, Wheeze (n), Crackles (Few basilar), Rhonchi (n), Non-Labored Respirations, Accessory Resp Muscle Use (n) and Stridor (n)
GI: Soft, Non Distended and Non Tender
Neurology: Awake, Alert, No Motor Deficits and Lethargic (Sleeping comfortably)
Skin: Warm, Good Color, Cyanosis (n), Bruising (Scattered ecchymoses) and Other (Right radial pseudoaneurysm)
Labs/Micro/Reports
Lab Data
09/30/23 06:30
09/30/23 06:30
Microbiology
09/29/23 15:56 Pleural Fluid Gram Stain - Preliminary
--- NOTE | 2023-09-30 11:41 | ITS.CL.CATH ---
Product Specialist - Catheterization
Cardiac Catheterization
Procedure Report:
RIGHT HEART CATHETERIZATION
Date of Procedure: 09/30/2023
Referring: Sushil Santos MD
INDICATION: CKD with CHF and unclear volume status
Right heart cath performed at weight 160 pounds on O2 at 3L/min
RA: 19
RV: 60/18
PA: 60/38
PCWP: 27
Oximetry: Ao 96%, PA 53%, cardiac output 2.4, cardiac index 1.4
COMPLICATIONS: None
Radiation (mGy): 14.4
DAP (cm2.Gy): 2.4
Fluoroscopy time: 1.7 minutes
CONCLUSION: Elevated left and right heart filling pressures with moderate pulmonary hypertension and low cardiac index. Given the low cardiac index, she may require inotropic therapy to allow continued diuresis without inducing azotemia
Copy to: Sushil Santos MD, Wilbert Figueroa MD
Taqueria Riley MD, [facility], [facility]
--- NOTE | 2023-09-30 13:28 | W.PN.NEPH.PH ---
Today's Communication / Plan
-
milrinone
Assessment/Plan
-
Impression:
CAMRON
CKD 3b ~1.8
Ischemic cardiomyopathy with EF of 30 to 35%
Interstitial lung disease on chronic O2 therapy
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
Presbyesophagus
Recurrent atrial fibs and flutter
Coronary artery disease
History of HTN
Psoriatic arthritis
left thoracentesis 900ml 09/28
Plan:
-will need inotrope-milrinione
-transfer to IVU
-restart lasix IV with milrinone
-follow BMP
-d/w family potential for worsening cardiorenal syndrome
-
-
Date of Service: September 30, 2023
CC / HPI / ROS
-
Chief Complaint:
CAMRON
History of Present Illness:
hemodynamically stable
creatinine down to 2.9 stable
weights stable off lasix
s/p RHC with wedge 27
remains on supplemental O2
Review of Systems:
oliguric
no fevers
carlos
Labs
-
Labs:
WBC 10.8 10^3/uL (4.8-10.8) 09/30/23 06:30
RBC 3.92 10^6/uL (4.20-5.40) L 09/30/23 06:30
Hgb 11.7 g/dL (12.0-16.0) L 09/30/23 06:30
Hct 37.0 % (37.0-47.0) 09/30/23 06:30
Plt Count 208 10^3/uL (130-400) 09/30/23 06:30
Sodium 138 mmol/L (135-145) 09/30/23 06:30
Potassium 4.0 mmol/L (3.5-5.1) 09/30/23 06:30
Chloride 99 mmol/L (98-107) 09/30/23 06:30
Carbon Dioxide 31 mmol/L (22-30) H 09/30/23 06:30
BUN 87 mg/dl (7-17) H 09/30/23 06:30
Creatinine 2.9 mg/dL (0.6-1.0) H 09/30/23 06:30
eGFR 15.20 09/30/23 06:30
Glucose 93 mg/dl (70-99) 09/30/23 06:30
Calcium 8.6 mg/dl (8.4-10.2) 09/30/23 06:30
Qzr-[id number]-Nwyqnokgtcc Pept 96052 pg/ml 09/19/23 19:07
Albumin 3.2 g/dl (3.5-5.0) L 09/21/23 07:10
Physical Exam
-
Vital Signs:
Vital Signs
Temp Pulse Resp BP Pulse Ox
97.1 F 96 18 120/82 96
09/30/23 13:00 09/30/23 13:00 09/30/23 13:00 09/30/23 13:00 09/30/23 13:00
Cardiovascular:: Regular rate and rhythm
Respiratory:: Bilateral: Coarse
Lung Excursion:: Normal
Abdomen:: Nontender and Soft
Bowel Sounds:: Normal
Extremity Edema:: +1: Bilateral:
--- NOTE | 2023-09-30 13:43 | W.PN.HOSP.TC ---
Today's Communication/Plan
-
start milrinone and iv lasix
monitor bmp with additional therapies
Assessment / Plan
Assessment / Plan
# Acute on chronic hypoxic respiratory failure
# Acute on chronic HFpEF exacerbation (Chronically on 2L) - on 1L today
-Amiodarone to continue
-Incentive spirometer, Acapella
-Continue lasix on hold. f/u renal function.
-resume back on eliquis/plavix.
-Thoracentesis 09/28 - transudative most likely 2/2 to acute on chronic HFpEF
-RHC today: Elevated left and right heart filling pressures with moderate pulmonary hypertension and low cardiac index.
-Start Milrinone to assist with diuresis; restart IV lasix with additional inotropic agent
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
-most likely 2/2 to overdiuresis - now trending down although still needs diuresis
-Maintain Whitley catheter for urine output measurement
-CTM off lasix
#RLL pneumonia
B/l Pleural effusion
-Versus worsening pleural effusion
-CT chest images reviewed from admission, small effusion and not amenable to thoracentesis
-Repeat cxr on 09/25 showing increase opacity in left costodiaphragmatic region
-Patient already finished 5 days of doxycycline therapy
-thora consistent with chf
# Non-Ischemic Myocardial Injury
-2/2 to acute chf and afib
-no chest pain
-cards consulted
# Right radial artery pseudoaneurysm
-had radial art access last month
-confirmed with vasc US
-Vasc surg attempted sx under localized nerve block but patient had panic attack/hypoxia and sx was postponed as family declined to convert to [place]
--Patient is not interested in surgical intervention at this time.
-f/u vascular outpatient
# Nausea/vomiting - resolved
- no signs of acute abdomen
- symptomatic care
# Weight Loss
-has admitted to decrease PO intake/lack of appetite - this has also been an issue in the past that has been worked up by GI
-can f/u with GI/PCP outpatient for cancer screening if deems necessary: follows with Dr. Acevedo
-no n/v at this time
Poor Afib (unspecified)� control
CAD s/p PCI on 09/03/23
HLD
Hypothyroidism, f/u free t4
Spinal stenosis
PMR
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
Intermittent postprandial pain - Was ebvaluated by GI on 08/29/23 - PPI and outpatient follow up recommended with PMHx of weight loss
DVT ppx - on Eliquis
Full code
09/27 patient suggesting not wanting any further treatment. Briefly discussed if patient wanted to pursue hospice although patient tracked back on her decision. Discussed possible switching resuscitation measures to DNR/DNI as well. Patient stated
that she will talk to her case today and will inform us.
Total time spent on today's encounter was 55 minutes which included time spent in counseling the patient/family regarding diagnosis and treatment plan as listed above, goals of care, and symptom management. Case was discussed with nursing staff,
specialists, and care coordinators/case management. All labs and imaging personally reviewed by me. Remainder the time spent in detailed review of previous records, lab data, imaging, and other medical provider documentation.
Anticipated Discharge: > 48 hours
Subjective/Interval History
-
Date of Service: September 30, 2023
RHC today; elevated Right filling pressures, lower CI
Objective Data
-
Labs:
Laboratory Results
09/30/23
06:30
WBC 10.8
Hgb 11.7 L
Hct 37.0
Plt Count 208
Sodium 138
Potassium 4.0
Chloride 99
Carbon Dioxide 31 H
BUN 87 H
Creatinine 2.9 H
Glucose 93
Calcium 8.6
Vital Signs:
Vital Signs
Temp Pulse Resp BP Pulse Ox
96.9 F L 86 18 150/87 96
09/30/23 13:30 09/30/23 13:30 09/30/23 13:30 09/30/23 13:30 09/30/23 13:30
I&O
09/29/23 09/30/23 10/01/23
06:59 06:59 06:59
Intake Total 1040 / 1040 960 / 960
Output Total 525 / 525 525 / 525
Balance 515 / 515 435 / 435
Review of Systems
-
History Source: Patient
All other systems: Not reviewed unless documented
Physical Exam
-
General: Conversant, Appears Chronically Ill and Obese
HEENT: Oxygen
Respiratory: Clear to Auscultation; Negative Wheezes or Rales
Cardiac: Regular Rhythm and S1/S2; Negative Murmur
GI: Soft, Nontender and Nondistended
Musculoskeletal: No Edema and Other (Right wrist pseudoaneurysm)
Neuro: Awake and Oriented
Data Reviewed
-
CT Scan: Image personally visualized and interpreted and Report Reviewed by me
Labs: Labs Reviewed by me
--- NOTE | 2023-09-30 13:59 | W.PN.CARDCBS ---
Addendum entered and electronically signed by Aubrey Goddard MD 09/30/23 17:33:
I saw and examined the patient.
The Vocational Auto Body Instructor's note was reviewed and I agree with the note.
Comment:
GEN: No distress, awake, Ox3
HEENT: supple, anicteric, mmm
LUNGS: dec Bs at bases
CV: irreg, S1/S2, / syst LSB, no murmur
ABD: soft, BS+, NT/ND
EXT: No edema
NEURO: Gross non-focal
SKIN: No rash
Plan:
RHC with elevated wedge and CI<2.0
Will try Milrinone to help augment diuresis.
Restart Lasix 40mg iv bid
Creat at 2.9.
Cont Amio/Eliquis
watch HR on inotrope.
Original Note:
Today's Communication / Plan
-
Transfer to IVU for milrinone
Restart Lasix
Impression / Plan
-
PCP: Dr. Wilbert Figueroa
Pheresis Specialist: Dr. Santos
Impression:
Presented with profound generalized weakness 09/19/23
Recent admission with weight loss, dysphagia, presbyesophagus, Afib s/p CV and PCI 08/27/23 until 09/11/23
Acute hypoxic respiratory insufficiency 09/24/23
Abnormal CXR with B/L interstitial infiltrates concerning for pneumonitis vs pulmonary edema 09/23/23
Acute on chronic HFpEF, improved
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
Elevated Troponin
Right radial artery pseudoaneurysm
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
Paroxysmal typical atrial flutter
s/p transiently successful CV 09/08/23
recurrent Afib/flutter 09/09/23
Amiodarone initiated 09/05/2023 status post load
Eliquis initiated 09/05/2023
CAD
PCI LAD 2004 ([facility])
PCI RCA 07/2010 ([facility])
s/p OM stent 10/08/17 with residual 40% stenosis of mid LAD and 50-60% stenosis of prox PDA
s/p 2.5 mm Xience to mid LAD 09/04/23
HTN
Hypertension
Mild peak/mean 22/13 mmHg and TAM 1.4 cm sq by echo 05/2023
HTN
Psoriatic arthritis
Polymyalgia rheumatica
Hyperlipidemia
Hx interstitial lung disease on chronic oxygen at 2 L continuously
Hypothyroidism
Anxiety
Fibromyalgia
Chronic dyspnea
Hx cervical radiculopathy
Statin intolerance
Hx left rotator cuff tear
Urethral stone w/ hydronephrosis 01/2018
Shingles 09/2022
Syncope 09/2022 in setting of GI illness/dehydration
Chronic pain syndrome on oxycodone daily
Echo 01/06/18:�Mild LVH, EF 50-55% possible lateral hypokinesis, normal RV, severely dilated LA, Mild to moderate MR, Mild aortic stenosis, peak/mean gradient 29/16, aortic valve area 1.6 cm�, Mild TR, pulmonary pressure 51-56 mmHg
Echo October 2018: Ejection fraction 60-65 percent, mild MR, mild , mild-moderate AI�������
Echo 07/2020: EF 60-65%, mild with MPG 14 mm Hg, TAM 1.7 cm2.
Echo 03/04/23:�EF 55-60% with mild MR, mild , aortic root 4 cm, trace pericardial effusion
Echo 06/04/23: EF 55 to 60%, mild concentric LVH, mild mitral stenosis with mean transmitral gradient 6 mmHg, moderate MR, mild peak/mean gradient 22/13 mmHg and TAM 1.4 cm sq, trace TR with pulmonary artery systolic pressure 26 mmHg mildly
dilated aortic root
Echo 08/28/23: EF 40-45%, pleural effusion, not assessed
JIAN 09/08/23: EF 40-45%, mod to sev MR, evidence of
TTE 09/26/23: EF 30-35%, mod MR, mild AI, aortic sclerosis no stenosis, PASP 45 mmHg
Plan:
-PCWP 27 and CI 1.4. Will transfer patient to IVU and start ordered rate milrinone at 0.3
-Resume Lasix 40 mg IV BID
-Hold Toprol XL while on milrinone
-Called and talked to patient's son for 7:27 min about RHC results and to review initiation of inotropic therapy. Her son is a physician and was in agreement.
-EF down to 30-35% by echo 09/26/23
-GDMT includes Toprol XL 50 mg BID which will be on hold while on milrinone. No MARIANO/ARB due to CAMRON on CKD
-LAD PCI 09/04/23 during last admission. Cont Plavix 75 mg daily. Would repeat echo in 40 days following intervention
-Right radial pseudoaneurysm monitored by vascular surgery team and patient was unable to lay flat for attempted repair 09/24/23. Patient is not interested in another attempt and plan is for observation with ongoing limb restrictions.
-Remains in Afib/flutter with HRs less than 100 on usual dose of Toprol XL 50 mg BID and now on amiodarone 200 mg daily after completing 5+ gram load last admission.
-Eliquis 2.5 mg BID continued after brief interruption for attempt at radial artery repair
-Pathology from left-sided thoracentesis 09/29/23 is pending
HPI: Patient was admitted 08/27/23 until 09/11/23 with weight loss and dysphagia and also new Afib/flutter. During that admission she had GI work-up that revealed presbyesophagus. She also had an abnormal stress test that led to cath with LAD PCI.
After cath patient had JIAN/CV with oriental orthodox of SR. She was discharged to home 09/11/23 following amiodarone load. She returned to 09/19/23 with CHF. Patient was diuresed with Lasix 40 mg IV daily. Cre was 2.9 on admission and peaked at 3.0. Cre
seemed to improve with IV diuresis and was 1.8 on 09/24/23. Patient was seen by vascular surgery for right wrist pain. Patient had cath via right radial approach and radial u/s 09/05/23 did not show radial aneurysm. Patient was given option of SNF vs
VN at last d/c and opted for home with VN. She does not have [employer] because the of hidden fees during the signup process. Upon return to [facility] her right wrist was increasingly swollen and painful so repeat right radial u/s performed and she now has a
right radial artery pseudoaneurysm. Patient presented to OR for repair using regional block and Versed and patient had orthopnea and hypoxia on the table and procedure cancelled. Patient is high risk for general anesthesia.
Progress Note - Pheresis Specialist
Subjective
Date of Service: September 30, 2023
She is not SOB at rest in bed laying fairly flat
Objective
Labs:
09/30/23 06:30
09/30/23 06:30
Labs
Hgb 11.7 g/dL (12.0-16.0) L 09/30/23 06:30
Hct 37.0 % (37.0-47.0) 09/30/23 06:30
Plt Count 208 10^3/uL (130-400) 09/30/23 06:30
Sodium 138 mmol/L (135-145) 09/30/23 06:30
Potassium 4.0 mmol/L (3.5-5.1) 09/30/23 06:30
BUN 87 mg/dl (7-17) H 09/30/23 06:30
Creatinine 2.9 mg/dL (0.6-1.0) H 09/30/23 06:30
Glucose 93 mg/dl (70-99) 09/30/23 06:30
Vital Signs and I&O:
Vital Signs
Temp Pulse Resp BP Pulse Ox
96.9 F L 86 18 150/87 96
09/30/23 13:30 09/30/23 13:30 09/30/23 13:30 09/30/23 13:30 09/30/23 13:30
Vital Signs
Temp Pulse Resp BP Pulse Ox
96.9 F L 86 18 150/87 96
09/30/23 13:30 09/30/23 13:30 09/30/23 13:30 09/30/23 13:30 09/30/23 13:30
Intake & Output
09/28/23 09/29/23 09/30/23 10/01/23
06:59 06:59 06:59 06:59
Intake Total 480 / 480 1040 / 1040 960 / 960
Output Total 400 / 400 525 / 525 525 / 525
Balance 80 / 80 515 / 515 435 / 435
Physical Exam
Physical Exam
General: NAD, AAO x3
HEENT: EOMI, MMM
Heart: Afib on tele
Lungs: Wearing oxygen at 2 L NC. No audible wheeze.
Abd: ND
Ext: No B/L LE edema
Neuro: Nonfocal
[2023-09-30] MEDS: STERILE WATER FOR INJECTION IV (14:03)
--- NOTE | 2023-09-30 14:45 | PTCARENOTE ---
Received the patient from [facility]. The patient is AAOx3, vss, 96% on 3L, afib is noted on the monitor. Her right groin dressing is c/d/i. A positive right pedal pulse is noted. A 3cm round soft nodule (pseudoaneurysm) is noted on her right wrist. Her
carlos is draining clear yellow urine. I instructed the patient on activity restrictions and expected oob time. Her call valdes is within reach. Her daughters are at her bedside.
[2023-09-30] MEDS: PRIMACOR 20 MG 100 IV (14:52)
[2023-09-30] MEDS: FLUSH (NSS) 1 FLUSH IV (14:57)
--- NOTE | 2023-09-30 15:54 | PTCARENOTE ---
Received patient this am AAOX3. Pt NPO for Cardiac Cath. Pt off unit for Cath this am . Please see post angio flow sheet for site checks. Received message from cardiology that patient is to be moved to IVU. Report called to Soo and
patient transported to IVU.
--- NOTE | 2023-09-30 16:14 | CM ---
Chart reviewed. Patient is independent of ADLS, lives alone in a [address] [facility], ambulates with a SPC, wears O2 2l at home with [employer]. [facility]. PT/OT recommending SNF. Referrals were sent to [facility], [facility],
[place], [facility], [facility]. Patient prefers [facility], but her daughter stated [facility] is closest to her. Patient's daughter would like to talk with the other family member before they make a final
decision. Plan is for the patient to go to SNF when medically stable for discharge. CM to follow
[2023-09-30] MEDS: LASIX 40 MG IV (16:53)
[2023-09-30] MEDS: FLUSH (NSS) 2 FLUSH IV (16:54)
--- NOTE | 2023-09-30 17:34 | PTCARENOTE ---
In to give the patient her IV Lasix and found the patient with a bloody nose. The blood caused a post nasal drip and she spit the blood out of her mouth onto tissues. The patient complained that there were hard nodules on the inside of her nose.
When they would start to hurt, she would 'pick them.' I cleaned her up and the nose bleed eventually stopped. In addition, I humidified her O2.
[2023-09-30] MEDS: ZETIA 10 MG PO (17:48)
[2023-09-30] MEDS: DELTASONE 5 MG PO (17:48)
[2023-09-30] MEDS: LIPITOR 40 MG PO (17:48)
--- NOTE | 2023-09-30 19:37 | PTCARENOTE ---
Assumed care of patient. Afib. VSS. BP via RLE d/t bilateral limb alert. Milrinone gtt per order via LUE midline. Family at bedside. RLE groin without hematoma, NV checks WNL. Assessment per nursing flowsheet. Whitley remains in place
[2023-09-30] MEDS: PEPCID 20 MG PO (20:53)
[2023-10-01] VITALS (14 sets, daily range): BP systolic 115–154; BP diastolic 48–107; PULSE 113; BMI 29.0
[2023-10-01] MEDS: PRIMACOR 20 MG 100 IV ×2 (04:37→16:52)
[2023-10-01 05:09] LABS: Hematocrit 33.3 % (37.0-47.0); Hemoglobin 10.8 g/dL (12.0-16.0); Mean Corp Hgb Conc. 32.4 g/dL (33.0-37.0); Mean Corpuscular Hgb 30.1 pg (27.0-31.0); Mean Corpuscular Volume 92.8 fL (81.0-99.0); Mean Platelet Volume 10.3 fL (7.4-10.4); Platelet Count 207 10^3/uL (130-400); Red Blood Cell Count 3.59 10^6/uL (4.20-5.40); Red Cell Dist. Width 14.6 % (11.5-14.5); White Blood Cell Count 10.7 10^3/uL (4.8-10.8)
[2023-10-01 05:47] LABS: ALT (SGPT) 47 U/L (0-35); AST (SGOT) 56 U/L (14-36); Albumin 2.7 g/dl (3.5-5.0); Alkaline Phosphatase 98 U/L (38-126); Blood Urea Nitrogen 83 mg/dl (7-17); Calcium 8.5 mg/dl (8.4-10.2); Carbon Dioxide 32 mmol/L (22-30); Chloride 98 mmol/L (98-107); Estimated Creatinine Clearance 14 ml/min; Glucose 115 mg/dl (70-99); Potassium 3.7 mmol/L (3.5-5.1); Sodium 138 mmol/L (135-145); Total Bilirubin 0.9 mg/dl (0.2-1.3); Total Protein 5.3 g/dl (6.3-8.2); eGFR 17.32
[2023-10-01] MEDS: SYNTHROID 75 MCG PO (06:28)
--- NOTE | 2023-10-01 07:45 | PTCARENOTE ---
Rec'd pt AAOx3, very drowsy but arousable this AM. Pt's affect very flat & pt appears withdrawn. Pt reports no CP or SOB at this time & appears comfortable in bed. Pt refused to get OOB for her weight, so weight obtained via bed scale. Pt also
declining breakfast this AM, however this RN encouraged pt to allow a breakfast be ordered & pt agreeable to drinking some Ensure. Clarified w/[employer] status of pt's carlos; OK to D/C. Pt refusing to allow RN to remove catheter at this time.
Advised pt of risks involved w/having a catheter & pt still refused. Will advise MD. This RN also spoke w/pt's daughter, Rosario & advised her of pt's current status & reiterated [employer] telling pt she will need to go to a skilled rehab on D/C.
Pt's daughter also feels pt is declining & will be unable to go home on D/C. VS stable. Milrinone drip infusing through patent LUE midline as ordered. Plan of care ongoing.
--- NOTE | 2023-10-01 08:48 | W.PN.CARDCBS ---
Addendum entered and electronically signed by Thaddeus Santos MD 10/01/23 11:23:
I saw and examined the patient.
The HOG TRADER or PA's note was reviewed and I agree with the note.
Comment: General: Well developed, well nourished in NAD.
Neck: Supple, no JVD, HJR, carotids +2 B/L, no bruits bilaterally.
Heart: Non displaced PMI, irreg, no murmurs, No S3, S4, no rubs.
Lungs: scattered rhonchi
Extremities: No clubbing, cyanosis or edema bilaterally.
Neuro: Grossly nonfocal, awake, alert and oriented x3.
Difficult volume status but renal function improving on Milrinone. Nephrology managing diuretics. cont Milrinone.
Original Note:
Today's Communication / Plan
-
Milrinone gtt renewed
Cont Lasix 40 mg IV BID
ECG and CMP in AM
Impression / Plan
-
PCP: Dr. Wilbert Figueroa
Power Reactor Supervisor: Dr. Santos
Impression:
Presented with profound generalized weakness 09/19/23
Recent admission with weight loss, dysphagia, presbyesophagus, Afib s/p CV and PCI 08/27/23 until 09/11/23
Acute hypoxic respiratory insufficiency 09/24/23
Abnormal CXR with B/L interstitial infiltrates concerning for pneumonitis vs pulmonary edema 09/23/23
Acute on chronic HFpEF, improved
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
Elevated Troponin
Right radial artery pseudoaneurysm
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
Paroxysmal typical atrial flutter
s/p transiently successful CV 09/08/23
recurrent Afib/flutter 09/09/23
Amiodarone initiated 09/05/2023 status post load
Eliquis initiated 09/05/2023
CAD
PCI LAD 2004 ([facility])
PCI RCA 07/2010 ([facility])
s/p OM stent 10/08/17 with residual 40% stenosis of mid LAD and 50-60% stenosis of prox PDA
s/p 2.5 mm Xience to mid LAD 09/04/23
HTN
Hypertension
Mild peak/mean 22/13 mmHg and TAM 1.4 cm sq by echo 05/2023
HTN
Psoriatic arthritis
Polymyalgia rheumatica
Hyperlipidemia
Hx interstitial lung disease on chronic oxygen at 2 L continuously
Hypothyroidism
Anxiety
Fibromyalgia
Chronic dyspnea
Hx cervical radiculopathy
Statin intolerance
Hx left rotator cuff tear
Urethral stone w/ hydronephrosis 01/2018
Shingles 09/2022
Syncope 09/2022 in setting of GI illness/dehydration
Chronic pain syndrome on oxycodone daily
Echo 01/06/18:�Mild LVH, EF 50-55% possible lateral hypokinesis, normal RV, severely dilated LA, Mild to moderate MR, Mild aortic stenosis, peak/mean gradient 29/16, aortic valve area 1.6 cm�, Mild TR, pulmonary pressure 51-56 mmHg
Echo October 2018: Ejection fraction 60-65 percent, mild MR, mild , mild-moderate AI�������
Echo 07/2020: EF 60-65%, mild with MPG 14 mm Hg, TAM 1.7 cm2.
Echo 03/04/23:�EF 55-60% with mild MR, mild , aortic root 4 cm, trace pericardial effusion
Echo 06/04/23: EF 55 to 60%, mild concentric LVH, mild mitral stenosis with mean transmitral gradient 6 mmHg, moderate MR, mild peak/mean gradient 22/13 mmHg and TAM 1.4 cm sq, trace TR with pulmonary artery systolic pressure 26 mmHg mildly
dilated aortic root
Echo 08/28/23: EF 40-45%, pleural effusion, not assessed
JIAN 09/08/23: EF 40-45%, mod to sev MR, evidence of
TTE 09/26/23: EF 30-35%, mod MR, mild AI, aortic sclerosis no stenosis, PASP 45 mmHg
Plan:
-Weight is down 2 lbs overnight and Cre has improved from 2.9 to 2.6 on 10/01/23.
-Milrinone gtt started at 0.3 mcg/kg/min on 09/30/23. RHC on 09/30/23 showed PCWP 27 and CI 1.4
-Cont Lasix 40 mg IV BID
-Hold Toprol XL while on milrinone
-EF down to 30-35% by echo 09/26/23
-GDMT includes Toprol XL 50 mg BID which will be on hold while on milrinone. No MARIANO/ARB due to CAMRON on CKD
-LAD PCI 09/04/23 during last admission. Cont Plavix 75 mg daily. Would repeat echo in 40 days following intervention
-Right radial pseudoaneurysm monitored by vascular surgery team and patient was unable to lay flat for attempted repair 09/24/23. Patient is not interested in another attempt and plan is for observation with ongoing limb restrictions.
-Remains in Afib/flutter with HRs less than 100 on usual dose of Toprol XL 50 mg BID and now on amiodarone 200 mg daily after completing 5+ gram load last admission. Check ECG in AM
-Eliquis 2.5 mg BID continued after brief interruption for attempt at radial artery repair
-Pathology from left-sided thoracentesis 09/29/23 is pending
-Called and talked to patient's son on 09/30/23 about RHC results and to review initiation of inotropic therapy. Her son is a physician and was in agreement.
HPI: Patient was admitted 08/27/23 until 09/11/23 with weight loss and dysphagia and also new Afib/flutter. During that admission she had GI work-up that revealed presbyesophagus. She also had an abnormal stress test that led to cath with LAD PCI.
After cath patient had JIAN/CV with protestant of SR. She was discharged to home 09/11/23 following amiodarone load. She returned to 09/19/23 with CHF. Patient was diuresed with Lasix 40 mg IV daily. Cre was 2.9 on admission and peaked at 3.0. Cre
seemed to improve with IV diuresis and was 1.8 on 09/24/23. Patient was seen by vascular surgery for right wrist pain. Patient had cath via right radial approach and radial u/s 09/05/23 did not show radial aneurysm. Patient was given option of SNF vs
VN at last d/c and opted for home with VN. She does not have [employer] because the of hidden fees during the signup process. Upon return to [facility] her right wrist was increasingly swollen and painful so repeat right radial u/s performed and she now has a
right radial artery pseudoaneurysm. Patient presented to OR for repair using regional block and Versed and patient had orthopnea and hypoxia on the table and procedure cancelled. Patient is high risk for general anesthesia.
Progress Note - Power Reactor Supervisor
Subjective
Date of Service: October 01, 2023
She says she is tired, RN is checking blood sugar
Objective
Labs:
10/01/23 04:43
10/01/23 04:43
Labs
Hgb 10.8 g/dL (12.0-16.0) L 10/01/23 04:43
Hct 33.3 % (37.0-47.0) L 10/01/23 04:43
Plt Count 207 10^3/uL (130-400) 10/01/23 04:43
Sodium 138 mmol/L (135-145) 10/01/23 04:43
Potassium 3.7 mmol/L (3.5-5.1) 10/01/23 04:43
BUN 83 mg/dl (7-17) H 10/01/23 04:43
Creatinine 2.6 mg/dL (0.6-1.0) H 10/01/23 04:43
Glucose 115 mg/dl (70-99) H 10/01/23 04:43
Vital Signs and I&O:
Vital Signs
Temp Pulse Resp BP Pulse Ox
97.3 F 100 18 135/66 100
10/01/23 06:58 10/01/23 07:00 10/01/23 06:58 10/01/23 06:57 10/01/23 06:58
Vital Signs
Temp Pulse Resp BP Pulse Ox
97.3 F 100 18 135/66 100
10/01/23 06:58 10/01/23 07:00 10/01/23 06:58 10/01/23 06:57 10/01/23 06:58
Intake & Output
09/29/23 09/30/23 10/01/23 10/02/23
06:59 06:59 06:59 06:59
Intake Total 1040 / 1040 960 / 960 72.6 / 72.6
Output Total 525 / 525 525 / 525 1500 / 1500
Balance 515 / 515 435 / 435 -1427.4 / -1427.4
Physical Exam
Physical Exam
General: NAD, AAO x3
HEENT: EOMI, MMM
Heart: Afib on tele
Lungs: Wearing oxygen at 2 L NC. No audible wheeze.
Abd: ND
Ext: No B/L LE edema
Neuro: Nonfocal
--- NOTE | 2023-10-01 09:16 | W.PN.PUL3 ---
Today's Communication / Plan
-
RHC reviewed, now on IV milrinone
UO appears improved
Diuresis ongoing
Remains stable on O2 requirements/baseline use
Encouraged OOB/PT/IS
Assessment
-
88-year-old female with complex cardiopulmonary history on chronic oxygen therapy, recent cardiac catheterization with LAD stent placement 09/04/2023, NSTEMI 09/01/2023, abnormal stress test, newly diagnosed atrial flutter with RVR 08/27/2023 on
amiodarone therapy since 09/05/2023, readmitted 09/19/2023, treated for heart failure found to have right radial artery pseudoaneurysm. Creatinine improved from 2.9-1.8 during hospital stay. Chest x-ray 09/22 showed questionable bilateral pneumonia.
Patient had acute episode of shortness of breath, orthopnea following regional block on 09/24/2023. Family did not want to pursue intubation for radial artery repair. We are asked to help from pulmonary standpoint.
Acute hypoxic respiratory insufficiency
Acute on chronic heart failure exacerbation with reduced EF - 30%
Orthopnea
Edema and congestion/cardiomeg on imaging
Cardiorenal syndrome
General fatigue, weakness, anorexia
Nausea/emesis/diarrhea preadmission
Atrial fibrillation/atrial flutter, newly diagnosed 08/27/2023
Acute on chronic renal insufficiency
Creatinine 2.9 on admission, improved to 1.8
Right radial artery pseudoaneurysm
Aortic stenosis, valve area 1.4 cm
Conditions present prior to admission:
ILD, on chronic oxygen therapy, 2 L
Obstructive sleep apnea suspected-reportedly negative studies in the past-positional therapy recommended.
Nocturnal hypoxemia
Hypothyroid.�
Fibromyalgia.�
CAD/stent.�
PMR
Osteoporosis.�
Hyperlipidemia.�
Psoriatic arthritis on chronic low-dose prednisone therapy
Followed by rheumatology.�
GERD.
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
Biliary dilation/cholecystectomy.� Bilateral TKR.� Right and left THP.� Back surgery..
Family history of lung cancer
Plan
98% on 2L NC, stable
Continue supplemental oxygen as needed
Establish home oxygen needs prior to discharge-now nearly back to her baseline-chronically on 2 L
Continue nebulizers as needed
No need for steroids
Chest x-ray 09/26/2023-persistent cardiomegaly, slightly worsened aeration with increased interstitial edema and small left pleural effusion
Left chest ultrasound 09/24/2023-showing large L sided effusion
IR consult for L thora, s/p thora 09/28 with removal of 900mL
Chemistry pH 7.45 - wbc 501 - glu 89 - tp <2.0 - ldh 108--transudative pleural studies
Culture no growth to date, cyto pending
Most consistent with CHF
Continue diuresis as tolerated-now in IV milrinone
Cardiorenal syndrome
Serum creatinine rising-renal following
Monitor renal function, electrolytes, intake/output, lower extremity edema and weight
Replace electrolytes as needed
UO seems improved on inotrope, 1500 output noted
Cardiology following-correspondence reviewed, RHC reviewed
Monitor rhythm and rate control
Patient on amiodarone
Note: EF 30-40%
Cultures reviewed
Finite course of antibiotics
Monitor leukocytosis
Right radial pseudoaneurysm noted, being followed by vascular
Unclear whether we will be able to pursue repair
DVT prophylaxis-on Eliquis
GI prophylaxis-on pantoprazole
Nutrition
Physical therapy
Diagnostic Data
CXR 09/24/23- MODERATE ACUTE INTERSTITIAL and ALVEOLAR CARDIOGENIC PULMONARY EDEMA which has markedly increased since 09/23/2023. Small bilateral pleural effusions. Large left lower lobe airspace consolidation (probably atelectasis). Moderate
cardiomegaly.
Chest x-ray from 04/22/2014 revealed no active disease. She has not had any new x-ray in the interim. Her pulmonary function test from 2012 was also re-reviewed.
CXR 04/23/23 ([facility]): reviewed on CD. Chronic changes left base.
Chest x-ray 05/07/23-mild blunting of bilateral costophrenic angles representing chronic pleural thickening, interval improvement in previously seen small bilateral pleural effusions.
Chest x-ray 06/03/23-mild cardiomegaly, unchanged
Lower extremity ultrasound 05/07/23-no evidence for DVT bilaterally.
VQ scan 05/07/23-low probability for pulmonary embolism
Abdominal CT 12/20/18 reveals clear lung bases per my review. Report suggests possible abnormal ilium. CT abdomen 01/05/18 reveals small bilateral pleural effusion and mild reticular thickening with interlobular septa.
CT CHEST 09/20/23-There is small left-sided pleural effusion with moderate parenchymal air space disease at the left lung base which may be atelectasis or pneumonia. There is small right-sided pleural effusion with underlying compressive atelectasis
at the posterior medial right lung base. Atherosclerosis. Cardiomegaly.
CT chest 10/27/17 reveals mild interstitial changes with ground glass abnormality image 37 with mild pleural effusion. Chest x-ray 08/15/18 reveals mild left lower lobe pneumonia. Chest x-ray 08/11/18 reveals bilateral patchy infiltrates.
PFT 04/02/18: FVC 2.41/111%, FEV1 1.94/122% ratio 80, TLC 3.53/80%, DLCO 12.11/69%.
Toni 05/01/23: FVC 1.32/59%, FEV1 1.07/65%, ratio 81. This has worsened
6MWT 05/01/23: Patient and related 300 feet for 3 minutes. Desaturation blessing 93% on room air, heart rate 88. Dyspnea scale 6/10.
ECHO 09/25/23: �Normal left ventricular chamber size. �Mild concentric left ventricular hypertrophy.�Moderately reduced left ventricular systolic function.�Global hypokinesis.�Left ventricular ejection fraction is 30-35%.�Normal right ventricular
size and function.�Moderate mitral regurgitation.�Mild aortic regurgitation.�Estimated pulmonary artery pressure of 45 mmHg.�Assuming a right atrial pressure of 3 mmHg.�Pulmonic valve is grossly normal but poorly visualized.�Pleural effusion
present.�The IVC is of normal size and demonstrates normal respiratory variation.�Compared to August 2023 Ejection fraction is now moderately reduced to 30%�compared to 40-45% in August.
Echo 03/04/23: Normal biventricular function, mild mitral regurgitation, aortic stenosis. Compared to prior study in 2018, EF has improved
All relevant imaging reviewed.
Subjective Data
-
Date of Service:
Date of Service: October 01, 2023
Chief Complaint: Pulmonary Follow Up and Dyspnea Follow Up
Subjective:
patient seen and examined, no acute events on
now on milrinone
UO seems better
Objective Data
Data Reviewed
Vital Signs / I&O / Oxygen:
Vital Signs
Temp Pulse Resp BP Pulse Ox
97.3 F 100 18 135/66 100
10/01/23 06:58 10/01/23 07:00 10/01/23 06:58 10/01/23 06:57 10/01/23 06:58
Intake and Output
09/30/23 10/01/23 10/02/23
06:59 06:59 06:59
Intake Total 960 / 960 72.6 / 72.6
Output Total 525 / 525 1500 / 1500
Balance 435 / 435 -1427.4 / -1427.4
SaO2 100
Nasal Cannula flow liters per 2
minute
Physical Exam
General: Respiratory Distress (n), Comfortable and Other (NAD)
HEENT: Normocephalic, Anicteric and Moist Mucous Membranes
Cardiovascular: S1-S2, Regular Rhythm, Murmur (n) and Rub (n)
Respiratory: Clear, Wheeze (n), Crackles (Few basilar), Rhonchi (n), Non-Labored Respirations, Accessory Resp Muscle Use (n) and Stridor (n)
GI: Soft, Non Distended and Non Tender
Neurology: Awake, Alert, Oriented, AO x 3, No Motor Deficits and Lethargic (Sleeping comfortably)
Skin: Warm, Good Color, Cyanosis (n), Bruising (Scattered ecchymoses) and Other (Right radial pseudoaneurysm)
Labs/Micro/Reports
Lab Data
10/01/23 04:43
10/01/23 04:43
Microbiology
09/29/23 15:56 Pleural Fluid Body Fluid Culture - Preliminary
No Growth After 18-24 Hours
09/29/23 15:56 Pleural Fluid Gram Stain - Preliminary
--- NOTE | 2023-10-01 09:30 | W.PN.NEPH.PH ---
Today's Communication / Plan
-
Maintain milrinone and IV Lasix
Creatinine improved
Assessment/Plan
-
Impression:
CAMRON
CKD 3b ~1.8
Ischemic cardiomyopathy with EF of 30 to 35%
Interstitial lung disease on chronic O2 therapy
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
Presbyesophagus
Recurrent atrial fibs and flutter
Coronary artery disease
History of HTN
Psoriatic arthritis
left thoracentesis 900ml 09/28
Plan:
-now on inotrope-milrinione
-grossly nonoliguric
-maintain lasix IV 40mg BID
-weights down
-follow BMP
-d/w family potential for worsening cardiorenal syndrome
-
-
Date of Service: October 01, 2023
CC / HPI / ROS
-
Chief Complaint:
CAMRON
History of Present Illness:
hemodynamically stable
creatinine down to 2.6 stable
Now on milrinone
Remains on Lasix 40 mg IV twice daily
s/p RHC with wedge 27
remains on supplemental O2
Review of Systems:
oliguric
no fevers
carlos
Weights down
Labs
-
Labs:
WBC 10.7 10^3/uL (4.8-10.8) 10/01/23 04:43
RBC 3.59 10^6/uL (4.20-5.40) L 10/01/23 04:43
Hgb 10.8 g/dL (12.0-16.0) L 10/01/23 04:43
Hct 33.3 % (37.0-47.0) L 10/01/23 04:43
Plt Count 207 10^3/uL (130-400) 10/01/23 04:43
Sodium 138 mmol/L (135-145) 10/01/23 04:43
Potassium 3.7 mmol/L (3.5-5.1) 10/01/23 04:43
Chloride 98 mmol/L (98-107) 10/01/23 04:43
Carbon Dioxide 32 mmol/L (22-30) H 10/01/23 04:43
BUN 83 mg/dl (7-17) H 10/01/23 04:43
Creatinine 2.6 mg/dL (0.6-1.0) H 10/01/23 04:43
eGFR 17.32 10/01/23 04:43
Glucose 115 mg/dl (70-99) H 10/01/23 04:43
Calcium 8.5 mg/dl (8.4-10.2) 10/01/23 04:43
Rej-R-Xfoaeissdbg Pept 57884 pg/ml 09/19/23 19:07
Albumin 2.7 g/dl (3.5-5.0) L 10/01/23 04:43
Physical Exam
-
Vital Signs:
Vital Signs
Temp Pulse Resp BP Pulse Ox
97.3 F 100 18 135/66 100
10/01/23 06:58 10/01/23 07:00 10/01/23 06:58 10/01/23 06:57 10/01/23 06:58
Cardiovascular:: Regular rate and rhythm
Respiratory:: Bilateral: Coarse
Lung Excursion:: Normal
Abdomen:: Nontender and Soft
Bowel Sounds:: Normal
Extremity Edema:: +1: Bilateral:
Carlos Catheter: Yes
[2023-10-01] MEDS: LASIX 40 MG IV ×2 (10:44→16:51)
[2023-10-01] MEDS: PACERONE 200 MG PO (10:45)
[2023-10-01] MEDS: DESENEX/MITRAZOL/ZEASORB 1 APPLIC TOPICAL ×2 (10:45→19:48)
[2023-10-01] MEDS: EFFEXOR XR 75 MG PO (10:45)
[2023-10-01] MEDS: FLUSH (NSS) 2 FLUSH IV ×2 (10:45→16:52)
[2023-10-01] MEDS: PLAVIX 75 MG PO (10:46)
[2023-10-01] MEDS: PROTONIX 40 MG PO (10:46)
[2023-10-01] MEDS: ELIQUIS 2.5 MG PO ×2 (10:46→19:48)
--- NOTE | 2023-10-01 13:57 | W.PN.HOSP.TC ---
Today's Communication/Plan
-
milrinone, iv lasix
monitor scr
remove carlos, monitor UO
Assessment / Plan
Assessment / Plan
# Acute on chronic hypoxic respiratory failure
# Acute on chronic HFpEF exacerbation (Chronically on 2L) - on 1L today
-Amiodarone to continue
-Incentive spirometer, Acapella
-Continue lasix on hold. f/u renal function.
-resume back on eliquis/plavix.
-Thoracentesis 09/28 - transudative most likely 2/2 to acute on chronic HFpEF
-RHC 09/29: Elevated left and right heart filling pressures with moderate pulmonary hypertension and low cardiac index.
-Continue Milrinone to assist with diuresis; restart IV lasix with additional inotropic agent
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
-most likely cardiorenal
-monitor with milrinone and iv lasix
#RLL pneumonia
B/l Pleural effusion
-Versus worsening pleural effusion
-CT chest images reviewed from admission, small effusion and not amenable to thoracentesis
-Repeat cxr on 09/25 showing increase opacity in left costodiaphragmatic region
-Patient already finished 5 days of doxycycline therapy
-thora consistent with chf
# Non-Ischemic Myocardial Injury
-2/2 to acute chf and afib
-no chest pain
-cards consulted
# Right radial artery pseudoaneurysm
-had radial art access last month
-confirmed with vasc US
-Vasc surg attempted sx under localized nerve block but patient had panic attack/hypoxia and sx was postponed as family declined to convert to [place]
--Patient is not interested in surgical intervention at this time.
-f/u vascular outpatient
# Nausea/vomiting - resolved
- no signs of acute abdomen
- symptomatic care
# Weight Loss
-has admitted to decrease PO intake/lack of appetite - this has also been an issue in the past that has been worked up by GI
-can f/u with GI/PCP outpatient for cancer screening if deems necessary: follows with Dr. Acevedo
-no n/v at this time
Poor Afib (unspecified)� control
CAD s/p PCI on 09/03/23
HLD
Hypothyroidism, f/u free t4
Spinal stenosis
PMR
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
Intermittent postprandial pain - Was ebvaluated by GI on 08/29/23 - PPI and outpatient follow up recommended with PMHx of weight loss
DVT ppx - on Eliquis
Full code
09/27 patient suggesting not wanting any further treatment. Briefly discussed if patient wanted to pursue hospice although patient tracked back on her decision. Discussed possible switching resuscitation measures to DNR/DNI as well. Patient stated
that she will talk to her case today and will inform us.
Total time spent on today's encounter was 52 minutes which included time spent in counseling the patient/family regarding diagnosis and treatment plan as listed above, goals of care, and symptom management. Case was discussed with nursing staff,
specialists, and care coordinators/case management. All labs and imaging personally reviewed by me. Remainder the time spent in detailed review of previous records, lab data, imaging, and other medical provider documentation.
Anticipated Discharge: > 48 hours
Subjective/Interval History
-
Date of Service: October 01, 2023
Slightly more lethargic today, great improvement on IV Lasix
Objective Data
-
Labs:
Laboratory Results
10/01/23
04:43
WBC 10.7
Hgb 10.8 L
Hct 33.3 L
Plt Count 207
Sodium 138
Potassium 3.7
Chloride 98
Carbon Dioxide 32 H
BUN 83 H
Creatinine 2.6 H
Glucose 115 H
Calcium 8.5
Total Bilirubin 0.9
AST 56 H
ALT 47 H
Alkaline Phosphatase 98
Vital Signs:
Vital Signs
Temp Pulse Resp BP Pulse Ox
97.5 F 107 24 135/66 100
10/01/23 11:27 10/01/23 11:27 10/01/23 11:27 10/01/23 06:57 10/01/23 06:58
I&O
09/30/23 10/01/23 10/02/23
06:59 06:59 06:59
Intake Total 960 / 960 72.6 / 72.6
Output Total 525 / 525 1500 / 1500
Balance 435 / 435 -1427.4 / -1427.4
Review of Systems
-
History Source: Patient
All other systems: Not reviewed unless documented
Data Reviewed
-
CT Scan: Image personally visualized and interpreted and Report Reviewed by me
Labs: Labs Reviewed by me
--- NOTE | 2023-10-01 14:41 | CM ---
Chart reviewed. Patient is independent of ADLS, lives alone in a [facility] Community, [address], [address], ambulates with a SPC and wears O2 2l overnight. Uses [employer] oxygen supply [employer]. PT/OT recommending SNF. Referrals sent to multiple
facilities. I spoke to the patient's daughter, Rosario, and she would prefer her mother to go to [facility] or a facility with possible a private room. Plan is for the patient to go to [facility]illed [facility] once medically stable for discharge. CM to follow
[2023-10-01] MEDS: ZETIA 10 MG PO (16:51)
[2023-10-01] MEDS: DELTASONE 5 MG PO (16:52)
[2023-10-01] MEDS: LIPITOR 40 MG PO (16:52)
--- NOTE | 2023-10-02 01:46 | PTCARENOTE ---
Pt. continues in A-fib rate 100's-120's (with activity), other VSS, milrinone infusing at 0.3mcg/kg/min. Pt. has no complaints of pain/discomfort. Pulse ox mid 90's on 2L O2, crackles present left base. Right groin cath site dressing CDI with no
S&S hematoma, pedal pulse palpable. Pt. able to ambulate to BR with RW & assist x 1, small amount LOVELACE assessed. Voiding clear yellow urine without difficulty on toilet (Whitley removed earlier). Pt. currently sleeping.
[2023-10-02 03:20] VITALS: BP 157/56
[2023-10-02 04:15] LABS: Hematocrit 36.7 % (37.0-47.0); Hemoglobin 11.6 g/dL (12.0-16.0); Mean Corp Hgb Conc. 31.6 g/dL (33.0-37.0); Mean Corpuscular Hgb 29.8 pg (27.0-31.0); Mean Corpuscular Volume 94.3 fL (81.0-99.0); Mean Platelet Volume 10.2 fL (7.4-10.4); Platelet Count 228 10^3/uL (130-400); Red Blood Cell Count 3.89 10^6/uL (4.20-5.40); Red Cell Dist. Width 14.6 % (11.5-14.5); White Blood Cell Count 12.9 10^3/uL (4.8-10.8)
[2023-10-02 04:34] VITALS: BMI 28.8
[2023-10-02 04:39] LABS: ALT (SGPT) 46 U/L (0-35); AST (SGOT) 64 U/L (14-36); Alkaline Phosphatase 103 U/L (38-126); Blood Urea Nitrogen 75 mg/dl (7-17); Calcium 8.8 mg/dl (8.4-10.2); Carbon Dioxide 32 mmol/L (22-30); Chloride 98 mmol/L (98-107); Estimated Creatinine Clearance 14 ml/min; Glucose 120 mg/dl (70-99); Magnesium 2.2 mg/dl (1.6-2.3); Potassium 3.7 mmol/L (3.5-5.1); Sodium 137 mmol/L (135-145); Total Protein 5.9 g/dl (6.3-8.2); eGFR 17.32
[2023-10-02] MEDS: PRIMACOR 20 MG 100 IV (06:27)
[2023-10-02 07:21] VITALS: BP 148/70
--- NOTE | 2023-10-02 07:24 | W.PN.CARDCBS ---
Addendum entered and electronically signed by Gisel Ocampo MD 10/02/23 09:11:
I saw and examined the patient.
The Jewelry Repairer's note was reviewed and I agree with the note.
Comment:
Very complicated situation.
From a heart failure point of view patient with decompensated heart failure. Right heart catheterization reviewed. Although cardiac index is low and PCW is elevated this was in the setting of hypertension and roughly calculated SVR of 2800.
Patient needs further afterload reduction. We may be overestimating her volume status if she may be nearing euvolemic status. Of note as an outpatient she has a high sodium diet that is unlikely to change. Heart failure is likely exacerbated by
high sodium diet, uncontrolled atrial arrhythmia and underlying cardiomyopathy with recent coronary intervention. Contribution from renal insufficiency in addition.
Plan at this time:
-Start hydralazine 25 mg 3 times daily and Imdur 30 mg daily. For afterload reduction and heart failure. She is not on MARIANO inhibitor/ARB/Arni/Aldactone/SGLT2 candidate because of significant renal insufficiency.
-Continue to uptitrate using blood pressure as a guide.
-Resume beta-iain but would use carvedilol 6.25 mg twice daily and uptitrate as tolerates. Would uptitrate beta-iain if tolerating prior to uptitrating hydralazine/Imdur.
-Discontinue milrinone.
-Patient will not be a candidate for Verciguat for heart failure while on nitrates.
-Reassess proBNP. Watch for overdiuresis in the setting of hypertension and increased SVR. On discharge will require increased dose of oral diuretic. Currently managed by nephrology.
-Rate control of atrial arrhythmia (atrial fibrillation/atrial flutter). Currently on amiodarone. In the future consider rastafarian of sinus rhythm.
-Continue usual post coronary artery disease intervention care with recent stent.
-Heart failure teaching. Sodium and fluid restricted diet as tolerates.
-Continue nephrology follow-up and care
-Continue pulmonary treatment of ILD.
Original Note:
Today's Communication / Plan
-
Will uptitrate medical therapy with coreg, hydralazine, and imdur
Stop milrinone this afternoon.
Continue Eliquis and amio
Impression / Plan
-
PCP: Dr. Wilbert Figueroa
Rolled Ham Lacer: Dr. Santos
Impression:
Presented with profound generalized weakness 09/19/23
Recent admission with weight loss, dysphagia, presbyesophagus, Afib s/p CV and PCI 08/27/23 until 09/11/23
Acute hypoxic respiratory insufficiency 09/24/23
Abnormal CXR with B/L interstitial infiltrates concerning for pneumonitis vs pulmonary edema 09/23/23
Acute on chronic HFpEF, improved
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
Elevated Troponin
Right radial artery pseudoaneurysm
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
Paroxysmal typical atrial flutter
s/p transiently successful CV 09/08/23
recurrent Afib/flutter 09/09/23
Amiodarone initiated 09/05/2023 status post load
Eliquis initiated 09/05/2023
CAD
PCI LAD 2004 ([facility])
PCI RCA 07/2010 ([facility])
s/p OM stent 10/08/17 with residual 40% stenosis of mid LAD and 50-60% stenosis of prox PDA
s/p 2.5 mm Xience to mid LAD 09/04/23
HTN
Hypertension
Mild peak/mean 22/13 mmHg and TAM 1.4 cm sq by echo 05/2023
HTN
Psoriatic arthritis
Polymyalgia rheumatica
Hyperlipidemia
Hx interstitial lung disease on chronic oxygen at 2 L continuously
Hypothyroidism
Anxiety
Fibromyalgia
Chronic dyspnea
Hx cervical radiculopathy
Statin intolerance
Hx left rotator cuff tear
Urethral stone w/ hydronephrosis 01/2018
Shingles 09/2022
Syncope 09/2022 in setting of GI illness/dehydration
Chronic pain syndrome on oxycodone daily
Echo 01/06/18:�Mild LVH, EF 50-55% possible lateral hypokinesis, normal RV, severely dilated LA, Mild to moderate MR, Mild aortic stenosis, peak/mean gradient 29/16, aortic valve area 1.6 cm�, Mild TR, pulmonary pressure 51-56 mmHg
Echo October 2018: Ejection fraction 60-65 percent, mild MR, mild , mild-moderate AI�������
Echo 07/2020: EF 60-65%, mild with MPG 14 mm Hg, TAM 1.7 cm2.
Echo 03/04/23:�EF 55-60% with mild MR, mild , aortic root 4 cm, trace pericardial effusion
Echo 06/04/23: EF 55 to 60%, mild concentric LVH, mild mitral stenosis with mean transmitral gradient 6 mmHg, moderate MR, mild peak/mean gradient 22/13 mmHg and TAM 1.4 cm sq, trace TR with pulmonary artery systolic pressure 26 mmHg mildly
dilated aortic root
Echo 08/28/23: EF 40-45%, pleural effusion, not assessed
JIAN 09/08/23: EF 40-45%, mod to sev MR, evidence of
TTE 09/26/23: EF 30-35%, mod MR, mild AI, aortic sclerosis no stenosis, PASP 45 mmHg
Plan:
-Weight down another 1lb overnight to 157lbs. Creat stable at 2.6, improved from peak of 3.3 on 09/26. RHC on 09/30/23 showed PCWP 27 and CI 1.4.
-Milrinone gtt started at 0.3 mcg/kg/min on 09/30/23. Will stop this afternoon.
-Cont Lasix 40 mg IV BID. Nephrology following closely.
-EF down to 30-35% by echo 09/26/23.
-GDMT has included Toprol XL 50 mg BID which has been on hold.
-BP elevated. Will start coreg 6.25mg BID as well as hydralazine 25mg TID and Imdur 30mg daily. No MARIANO/ARB due to CAMRON on CKD.
-LAD PCI 09/04/23 during last admission. Cont Plavix 75 mg daily. Would repeat echo in 40 days following intervention.
-Right radial pseudoaneurysm noted. Seen by vascular surgery but patient was unable to lay flat for attempted repair 09/24/23.
-Patient is not interested in another attempt and plan is for observation with ongoing limb restrictions.
-Remains in Afib/flutter. HRs typically well controlled on Toprol, however currently elevated somewhat as Toprol is on hold. Also on amiodarone 200 mg daily after completing 5+ gram load last admission. QTc stable on EKG this AM. Follow HRs with
restarting BB.
-Eliquis 2.5 mg BID continued after brief interruption for attempt at radial artery repair. Of note, patient has had minor episodes of epistaxis. Hgb stable. Will monitor.
-Pathology from left-sided thoracentesis 09/29/23 is pending.
HPI: Patient was admitted 08/27/23 until 09/11/23 with weight loss and dysphagia and also new Afib/flutter. During that admission she had GI work-up that revealed presbyesophagus. She also had an abnormal stress test that led to cath with LAD PCI.
After cath patient had JIAN/CV with rastafarian of SR. She was discharged to home 09/11/23 following amiodarone load. She returned to 09/19/23 with CHF. Patient was diuresed with Lasix 40 mg IV daily. Cre was 2.9 on admission and peaked at 3.0. Cre
seemed to improve with IV diuresis and was 1.8 on 09/24/23. Patient was seen by vascular surgery for right wrist pain. Patient had cath via right radial approach and radial u/s 09/05/23 did not show radial aneurysm. Patient was given option of SNF vs
VN at last d/c and opted for home with VN. She does not have [employer] because the of hidden fees during the signup process. Upon return to [facility] her right wrist was increasingly swollen and painful so repeat right radial u/s performed and she now has a
right radial artery pseudoaneurysm. Patient presented to OR for repair using regional block and Versed and patient had orthopnea and hypoxia on the table and procedure cancelled. Patient is high risk for general anesthesia.
Progress Note - Rolled Ham Lacer
Subjective
Date of Service: October 02, 2023
Feeling well overall. No SOB.
Objective
Labs:
10/02/23 03:49
10/02/23 03:49
Labs
Hgb 11.6 g/dL (12.0-16.0) L 10/02/23 03:49
Hct 36.7 % (37.0-47.0) L 10/02/23 03:49
Plt Count 228 10^3/uL (130-400) 10/02/23 03:49
Sodium 137 mmol/L (135-145) 10/02/23 03:49
Potassium 3.7 mmol/L (3.5-5.1) 10/02/23 03:49
BUN 75 mg/dl (7-17) H 10/02/23 03:49
Creatinine 2.6 mg/dL (0.6-1.0) H 10/02/23 03:49
Glucose 120 mg/dl (70-99) H 10/02/23 03:49
Vital Signs and I&O:
Vital Signs
Temp Pulse Resp BP Pulse Ox
97.8 F 116 20 157/56 97
10/02/23 03:24 10/02/23 03:20 10/02/23 03:24 10/02/23 03:20 10/02/23 03:24
Vital Signs
Temp Pulse Resp BP Pulse Ox
97.8 F 116 20 157/56 97
10/02/23 03:24 10/02/23 03:20 10/02/23 03:24 10/02/23 03:20 10/02/23 03:24
Intake & Output
09/30/23 10/01/23 10/02/23 10/03/23
06:59 06:59 06:59 06:59
Intake Total 960 / 960 72.6 / 72.6 960 / 960
Output Total 525 / 525 1500 / 1500 1950 / 1950
Balance 435 / 435 -1427.4 / -1427.4 -990 / -990
Physical Exam
Physical Exam
GEN: No distress, awake, alert, oriented x3
HEENT: supple, anicteric, mmm
LUNGS: crackles at b/l bases
CV: Irreg, S1/S2, no murmur
ABD: soft, BS+, NT/ND
EXT: No clubbing, cyanosis, or edema
NEURO: Gross non-focal
SKIN: Warm, dry, no rash
--- NOTE | 2023-10-02 08:42 | PTCARENOTE ---
Rec'd pt AAOx3, drowsy but arousable this AM. Pt w/no c/o CP or SOB. VS stable, w/BP & HR continuing to rise. MDs aware & new medication orders rec'd. Pt remains in A-fib/Aflutter on telemetry monitoring. Pt w/milrinone IV drip infusing as ordered
through patent LUE midline. Call valdes within reach & no addtl needs at this time. Plan of care ongoing.
--- NOTE | 2023-10-02 09:56 | W.PN.NEPH.PH ---
Today's Communication / Plan
-
Maintain Lasix
Assessment/Plan
-
Impression:
CAMRON
CKD 3b ~1.8
Ischemic cardiomyopathy with EF of 30 to 35%
Interstitial lung disease on chronic O2 therapy
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
Presbyesophagus
Recurrent atrial fibs and flutter
Coronary artery disease
History of HTN
Psoriatic arthritis
left thoracentesis 900ml 09/28
Plan:
-now on inotrope-milrinione and nonoliguric with uop just under 2liters, milrinone to be discontinued this afternoon
-grossly nonoliguric
-maintain lasix IV 40mg BID
-weights down
-follow BMP
-CAMRON appears to be mediated by cardiorenal syndrome
-
-
Date of Service: October 02, 2023
CC / HPI / ROS
-
Chief Complaint:
CAMRON
History of Present Illness:
hemodynamically stable
creatinine down to 2.6 stable
Milrinone to be discontinued later this afternoon per cardiology
Remains on Lasix 40 mg IV twice daily
s/p RHC with wedge 27
remains on supplemental O2
Review of Systems:
non oliguric
no fevers
carlos
Weights essentially unchanged
Labs
-
Labs:
WBC 12.9 10^3/uL (4.8-10.8) H 10/02/23 03:49
RBC 3.89 10^6/uL (4.20-5.40) L 10/02/23 03:49
Hgb 11.6 g/dL (12.0-16.0) L 10/02/23 03:49
Hct 36.7 % (37.0-47.0) L 10/02/23 03:49
Plt Count 228 10^3/uL (130-400) 10/02/23 03:49
Sodium 137 mmol/L (135-145) 10/02/23 03:49
Potassium 3.7 mmol/L (3.5-5.1) 10/02/23 03:49
Chloride 98 mmol/L (98-107) 10/02/23 03:49
Carbon Dioxide 32 mmol/L (22-30) H 10/02/23 03:49
BUN 75 mg/dl (7-17) H 10/02/23 03:49
Creatinine 2.6 mg/dL (0.6-1.0) H 10/02/23 03:49
eGFR 17.32 10/02/23 03:49
Glucose 120 mg/dl (70-99) H 10/02/23 03:49
Calcium 8.8 mg/dl (8.4-10.2) 10/02/23 03:49
Albumin 3.0 g/dl (3.5-5.0) L 10/02/23 03:49
Physical Exam
-
Vital Signs:
Vital Signs
Temp Pulse Resp BP Pulse Ox
97.7 F 114 18 148/70 92
10/02/23 07:26 10/02/23 08:00 10/02/23 07:26 10/02/23 07:21 10/02/23 07:26
Cardiovascular:: Irregular rate and rhythm (Tachycardia)
Respiratory:: Bilateral: Coarse
Lung Excursion:: Normal
Abdomen:: Nontender
Bowel Sounds:: Normal
Extremity Edema:: +1: Bilateral:
Carlos Catheter: No
[2023-10-02] MEDS: IMDUR (EXTENDED RELEASE) 30 MG PO (10:09)
[2023-10-02] MEDS: PACERONE 200 MG PO (10:09)
[2023-10-02] MEDS: SYNTHROID 75 MCG PO (10:09)
[2023-10-02] MEDS: LASIX 40 MG IV ×2 (10:10→18:11)
[2023-10-02] MEDS: EFFEXOR XR 75 MG PO (10:10)
[2023-10-02] MEDS: ELIQUIS 2.5 MG PO ×2 (10:10→20:27)
[2023-10-02] MEDS: DESENEX/MITRAZOL/ZEASORB 1 APPLIC TOPICAL ×2 (10:10→20:28)
[2023-10-02] MEDS: PLAVIX 75 MG PO (10:10)
[2023-10-02] MEDS: COREG 6.25 MG PO ×2 (10:11→20:27)
[2023-10-02] MEDS: APRESOLINE 25 MG PO ×3 (10:11→23:15)
[2023-10-02] MEDS: PROTONIX 40 MG PO (10:11)
[2023-10-02] MEDS: FLUSH (NSS) 2 FLUSH IV ×2 (10:11→18:11)
[2023-10-02 10:13] LABS: NT-proBNP 9860 pg/ml
--- NOTE | 2023-10-02 10:59 | CM ---
Chart reviewed. Plan is to taper off the Milrinone and titrate BP meds. Patient is independent of ADLS, lives alone in a [address], [address], [address], ambulates with a SPC and wears O2 2l overnight. Uses [employer] oxygen supply [employer]
PT/OT recommending SNF. Referrals sent to multiple facilities. I spoke to the patient's daughter, Rosario, and she would prefer her mother to go to [facility] or a facility with possibly a private room. Plan is for the patient to go to [facility]
once medically stable for discharge. CM to follow
[2023-10-02 11:14] VITALS: BP 112/51
--- NOTE | 2023-10-02 12:19 | PTCARENOTE ---
Pt w/episode of N&V x1 while in the BR having a small BM. Pt declining anything for N&V. Pt's appetite is very poor & new PO meds started this AM. This RN encouraging increased PO intake & for pt to eat w/meds to avoid N&V. Pt assisted back to bed.
Call valdes within reach . No addtl needs at this time.
--- NOTE | 2023-10-02 12:32 | W.PN.PUL3 ---
Today's Communication / Plan
-
Continued on IV milrinone and lasix
Stable on room air
Encouraged OOB/PT/OT
Follow UO/daily weights
Assessment
-
88-year-old female with complex cardiopulmonary history on chronic oxygen therapy, recent cardiac catheterization with LAD stent placement 09/04/2023, NSTEMI 09/01/2023, abnormal stress test, newly diagnosed atrial flutter with RVR 08/27/2023 on
amiodarone therapy since 09/05/2023, readmitted 09/19/2023, treated for heart failure found to have right radial artery pseudoaneurysm. Creatinine improved from 2.9-1.8 during hospital stay. Chest x-ray 09/22 showed questionable bilateral pneumonia.
Patient had acute episode of shortness of breath, orthopnea following regional block on 09/24/2023. Family did not want to pursue intubation for radial artery repair. We are asked to help from pulmonary standpoint.
Acute hypoxic respiratory insufficiency
Acute on chronic heart failure exacerbation with reduced EF - 30%
Orthopnea
Edema and congestion/cardiomeg on imaging
Cardiorenal syndrome
General fatigue, weakness, anorexia
Nausea/emesis/diarrhea preadmission
Atrial fibrillation/atrial flutter, newly diagnosed 08/27/2023
Acute on chronic renal insufficiency
Creatinine 2.9 on admission, improved to 1.8
Right radial artery pseudoaneurysm
Aortic stenosis, valve area 1.4 cm
Conditions present prior to admission:
ILD, on chronic oxygen therapy, 2 L
Obstructive sleep apnea suspected-reportedly negative studies in the past-positional therapy recommended.
Nocturnal hypoxemia
Hypothyroid.�
Fibromyalgia.�
CAD/stent.�
PMR
Osteoporosis.�
Hyperlipidemia.�
Psoriatic arthritis on chronic low-dose prednisone therapy
Followed by rheumatology.�
GERD.
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
Biliary dilation/cholecystectomy.� Bilateral TKR.� Right and left THP.� Back surgery..
Family history of lung cancer
Plan
Currently stable on room air
Continue nebulizers as needed
No need for steroids
Chest x-ray 09/26/2023-persistent cardiomegaly, slightly worsened aeration with increased interstitial edema and small left pleural effusion
Left chest ultrasound 09/24/2023-showing large L sided effusion
IR consult for L thora, s/p thora 09/28 with removal of 900mL
Chemistry pH 7.45 - wbc 501 - glu 89 - tp <2.0 - ldh 108--transudative pleural studies
Culture no growth to date, cyto pending
Most consistent with CHF
Continue diuresis as tolerated-now in IV milrinone
Cardiorenal syndrome
Serum creatinine rising-renal following
Monitor renal function, electrolytes, intake/output, lower extremity edema and weight
Replace electrolytes as needed
UO seems improved on inotrope, 1500 output noted
Cardiology following-correspondence reviewed, RHC reviewed
Monitor rhythm and rate control
Patient on amiodarone
Note: EF 30-40%
Cultures reviewed
Finite course of antibiotics
Monitor leukocytosis
Right radial pseudoaneurysm noted, being followed by vascular
Unclear whether we will be able to pursue repair
DVT prophylaxis-on Eliquis
GI prophylaxis-on pantoprazole
Nutrition
Physical therapy
Diagnostic Data
CXR 09/24/23- MODERATE ACUTE INTERSTITIAL and ALVEOLAR CARDIOGENIC PULMONARY EDEMA which has markedly increased since 09/23/2023. Small bilateral pleural effusions. Large left lower lobe airspace consolidation (probably atelectasis). Moderate
cardiomegaly.
Chest x-ray from 04/22/2014 revealed no active disease. She has not had any new x-ray in the interim. Her pulmonary function test from 2012 was also re-reviewed.
CXR 04/23/23 ([facility]): reviewed on CD. Chronic changes left base.
Chest x-ray 05/07/23-mild blunting of bilateral costophrenic angles representing chronic pleural thickening, interval improvement in previously seen small bilateral pleural effusions.
Chest x-ray 06/03/23-mild cardiomegaly, unchanged
Lower extremity ultrasound 05/07/23-no evidence for DVT bilaterally.
VQ scan 05/07/23-low probability for pulmonary embolism
Abdominal CT 12/20/18 reveals clear lung bases per my review. Report suggests possible abnormal ilium. CT abdomen 01/05/18 reveals small bilateral pleural effusion and mild reticular thickening with interlobular septa.
CT CHEST 09/20/23-There is small left-sided pleural effusion with moderate parenchymal air space disease at the left lung base which may be atelectasis or pneumonia. There is small right-sided pleural effusion with underlying compressive atelectasis
at the posterior medial right lung base. Atherosclerosis. Cardiomegaly.
CT chest 10/27/17 reveals mild interstitial changes with ground glass abnormality image 37 with mild pleural effusion. Chest x-ray 08/15/18 reveals mild left lower lobe pneumonia. Chest x-ray 08/11/18 reveals bilateral patchy infiltrates.
PFT 04/02/18: FVC 2.41/111%, FEV1 1.94/122% ratio 80, TLC 3.53/80%, DLCO 12.11/69%.
[place] 05/01/23: FVC 1.32/59%, FEV1 1.07/65%, ratio 81. This has worsened
6MWT 05/01/23: Patient and related 300 feet for 3 minutes. Desaturation blessing 93% on room air, heart rate 88. Dyspnea scale 6/10.
ECHO 09/25/23: �Normal left ventricular chamber size. �Mild concentric left ventricular hypertrophy.�Moderately reduced left ventricular systolic function.�Global hypokinesis.�Left ventricular ejection fraction is 30-35%.�Normal right ventricular
size and function.�Moderate mitral regurgitation.�Mild aortic regurgitation.�Estimated pulmonary artery pressure of 45 mmHg.�Assuming a right atrial pressure of 3 mmHg.�Pulmonic valve is grossly normal but poorly visualized.�Pleural effusion
present.�The IVC is of normal size and demonstrates normal respiratory variation.�Compared to August 2023 Ejection fraction is now moderately reduced to 30%�compared to 40-45% in August.
Echo 03/04/23: Normal biventricular function, mild mitral regurgitation, aortic stenosis. Compared to prior study in 2018, EF has improved
All relevant imaging reviewed.
Subjective Data
-
Date of Service:
Date of Service: October 02, 2023
Chief Complaint: Pulmonary Follow Up and Dyspnea Follow Up
Subjective:
patient seen, no acute events on
remain stable on room air
IV milrinone ongoing
Objective Data
Data Reviewed
Vital Signs / I&O / Oxygen:
Vital Signs
Temp Pulse Resp BP Pulse Ox
98.2 F 109 18 112/51 91
10/02/23 11:20 10/02/23 12:00 10/02/23 11:20 10/02/23 11:14 10/02/23 11:40
Intake and Output
10/01/23 10/02/23 10/03/23
06:59 06:59 06:59
Intake Total 72.6 / 72.6 960 / 960 525 / 525
Output Total 1500 / 1500 1950 / 1950 200 / 200
Balance -1427.4 / -1427.4 -990 / -990 325 / 325
SaO2 91
Nasal Cannula flow liters per 3
minute
Physical Exam
General: Respiratory Distress (n), Comfortable and Other (NAD)
HEENT: Normocephalic, Anicteric and Moist Mucous Membranes
Cardiovascular: S1-S2, Regular Rhythm, Murmur (n) and Rub (n)
Respiratory: Clear, Wheeze (n), Crackles (Few basilar), Rhonchi (n), Non-Labored Respirations, Accessory Resp Muscle Use (n) and Stridor (n)
GI: Soft, Non Distended and Non Tender
Neurology: Awake, Alert, Oriented, AO x 3, No Motor Deficits and Lethargic (Sleeping comfortably)
Skin: Warm, Good Color, Cyanosis (n), Bruising (Scattered ecchymoses) and Other (Right radial pseudoaneurysm)
Labs/Micro/Reports
Lab Data
10/02/23 03:49
10/02/23 03:49
Microbiology
09/29/23 15:56 Pleural Fluid Body Fluid Culture - Final
No Growth After 72 Hours
09/29/23 15:56 Pleural Fluid Gram Stain - Final
--- NOTE | 2023-10-02 14:03 | W.PN.HOSP.TC ---
Today's Communication/Plan
-
Stop milrinone, start hydralazine, nitrate combination
Stop milrinone, especially in setting of arrhythmias and decreased urine output
Continue IV Lasix, monitor renal function for overdiuresis
Start Coreg
Assessment / Plan
Assessment / Plan
# Acute on chronic hypoxic respiratory failure
# Acute on chronic HFpEF and HFrEF exacerbation (Chronically on 2L) - on 1L today
-Amiodarone to continue
-Incentive spirometer, Acapella
-Continue lasix on hold. f/u renal function.
-resume back on eliquis/plavix.
-Thoracentesis 09/28 - transudative most likely 2/2 to acute on chronic HFpEF
-RHC 09/29: Elevated left and right heart filling pressures with moderate pulmonary hypertension and low cardiac index.
-Status post milrinone, plan for discontinuation today as urine output decreased; IV lasix
-Start hydral +Imdur combo
-Coreg
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
-most likely cardiorenal
-monitor with milrinone and iv lasix
#RLL pneumonia - resolved
B/l Pleural effusion
-Versus worsening pleural effusion
-CT chest images reviewed from admission, small effusion and not amenable to thoracentesis
-Repeat cxr on 09/25 showing increase opacity in left costodiaphragmatic region
-Patient already finished 5 days of doxycycline therapy
-thora consistent with chf
# Non-Ischemic Myocardial Injury
-2/2 to acute chf and afib
-no chest pain
-cards consulted
# Right radial artery pseudoaneurysm
-had radial art access last month
-confirmed with vasc US
-Vasc surg attempted sx under localized nerve block but patient had panic attack/hypoxia and sx was postponed as family declined to convert to [place]
--Patient is not interested in surgical intervention at this time.
-f/u vascular outpatient
# Nausea/vomiting - resolved
- no signs of acute abdomen
- symptomatic care
# Weight Loss
-has admitted to decrease PO intake/lack of appetite - this has also been an issue in the past that has been worked up by GI
-can f/u with GI/PCP outpatient for cancer screening if deems necessary: follows with Dr. Acevedo
-no n/v at this time
Poor Afib (unspecified)� control
CAD s/p PCI on 09/03/23
HLD
Hypothyroidism, f/u free t4
Spinal stenosis
PMR
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
Intermittent postprandial pain - Was ebvaluated by GI on 08/29/23 - PPI and outpatient follow up recommended with PMHx of weight loss
DVT ppx - on Eliquis
Full code
09/27 patient suggesting not wanting any further treatment. Briefly discussed if patient wanted to pursue hospice although patient tracked back on her decision. Discussed possible switching resuscitation measures to DNR/DNI as well. Patient stated
that she will talk to her case today and will inform us.
Total time spent on today's encounter was 51 minutes which included time spent in counseling the patient/family regarding diagnosis and treatment plan as listed above, goals of care, and symptom management. Case was discussed with nursing staff,
specialists, and care coordinators/case management. All labs and imaging personally reviewed by me. Remainder the time spent in detailed review of previous records, lab data, imaging, and other medical provider documentation.
Anticipated Discharge: > 48 hours
Subjective/Interval History
-
Date of Service: October 02, 2023
No acute events
Objective Data
-
Labs:
Laboratory Results
10/02/23
03:49
WBC 12.9 H
Hgb 11.6 L
Hct 36.7 L
Plt Count 228
Sodium 137
Potassium 3.7
Chloride 98
Carbon Dioxide 32 H
BUN 75 H
Creatinine 2.6 H
Glucose 120 H
Calcium 8.8
Total Bilirubin 1.0
AST 64 H
ALT 46 H
Alkaline Phosphatase 103
Vital Signs:
Vital Signs
Temp Pulse Resp BP Pulse Ox
98.2 F 109 18 112/51 91
10/02/23 11:20 10/02/23 12:00 10/02/23 11:20 10/02/23 11:14 10/02/23 11:40
I&O
10/01/23 10/02/23 10/03/23
06:59 06:59 06:59
Intake Total 72.6 / 72.6 960 / 960 525 / 525
Output Total 1500 / 1500 1950 / 1950 200 / 200
Balance -1427.4 / -1427.4 -990 / -990 325 / 325
Review of Systems
-
History Source: Patient
All other systems: Not reviewed unless documented
Physical Exam
-
General: Conversant, Appears Chronically Ill and Obese
HEENT: Oxygen
Respiratory: Clear to Auscultation; Negative Wheezes or Rales
Cardiac: Regular Rhythm and S1/S2; Negative Murmur
GI: Soft, Nontender and Nondistended
Musculoskeletal: No Edema and Other (Right wrist pseudoaneurysm)
Neuro: Awake and Oriented
Data Reviewed
-
CT Scan: Image personally visualized and interpreted and Report Reviewed by me
Labs: Labs Reviewed by me
[2023-10-02 15:38] VITALS: BP 108/88
[2023-10-02] MEDS: DELTASONE 5 MG PO (18:11)
[2023-10-02] MEDS: LIPITOR 40 MG PO (18:11)
[2023-10-02] MEDS: ZETIA 10 MG PO (18:11)
[2023-10-02 19:25] VITALS: BP 147/87
[2023-10-02 23:03] VITALS: BP 110/61
[2023-10-02] MEDS: PEPCID 20 MG PO (23:15)
[2023-10-03] VITALS (9 sets, daily range): BP systolic 119–139; BP diastolic 53–105; PULSE 105–112; O2SAT 96; BMI 28.9
--- NOTE | 2023-10-03 01:44 | PTCARENOTE ---
No further complaints nausea so far this shift, VSS, A-fib on the monitor (rate low 100's -120's, Coreg given). Some LOVELACE assessed when assisting pt. to the BR, none at rest, lungs diminished. Pt. placed on 2L O2 for sleep as RA pulse ox 87-90%
when laying bed (mid 90's when more active). Pt. currently sleeping.
[2023-10-03] MEDS: SYNTHROID 75 MCG PO (04:40)
[2023-10-03 04:49] LABS: Hematocrit 33.2 % (37.0-47.0); Hemoglobin 10.8 g/dL (12.0-16.0); Mean Corp Hgb Conc. 32.5 g/dL (33.0-37.0); Mean Corpuscular Hgb 30.1 pg (27.0-31.0); Mean Corpuscular Volume 92.5 fL (81.0-99.0); Mean Platelet Volume 10.3 fL (7.4-10.4); Platelet Count 189 10^3/uL (130-400); Red Blood Cell Count 3.59 10^6/uL (4.20-5.40); Red Cell Dist. Width 14.7 % (11.5-14.5); White Blood Cell Count 9.6 10^3/uL (4.8-10.8)
[2023-10-03 05:13] LABS: ALT (SGPT) 42 U/L (0-35); AST (SGOT) 59 U/L (14-36); Albumin 2.7 g/dl (3.5-5.0); Alkaline Phosphatase 84 U/L (38-126); Blood Urea Nitrogen 70 mg/dl (7-17); Calcium 8.6 mg/dl (8.4-10.2); Carbon Dioxide 36 mmol/L (22-30); Chloride 96 mmol/L (98-107); Estimated Creatinine Clearance 15 ml/min; Glucose 107 mg/dl (70-99); Potassium 4.1 mmol/L (3.5-5.1); Sodium 138 mmol/L (135-145); Total Protein 5.5 g/dl (6.3-8.2); eGFR 19.07
--- NOTE | 2023-10-03 07:21 | W.PN.CARDCBS ---
Addendum entered and electronically signed by Thaddeus Santos MD 10/03/23 11:48:
I saw and examined the patient.
The RECRUITING AND SELECTION CONSULTANT or PA's note was reviewed and I agree with the note.
Comment: General: Well developed, well nourished in NAD.
Neck: Supple, no JVD, HJR, carotids +2 B/L, no bruits bilaterally.
Heart: Non displaced PMI, irregular, no murmurs, No S3, S4, no rubs.
Lungs: Scattered rhonchi
Extremities: No clubbing, cyanosis or edema bilaterally.
Neuro: Grossly nonfocal, awake, alert and oriented x3.
She seems to be improved. She is now off of oxygen. Heart rate remains elevated and will increase Coreg. She is now on nitrates and hydralazine and will need to consider increasing dose as blood pressure allows. We discussed positive palliative
care. She is thinking about it. Eventual custodial facility placement when stable on oral diuretics.
Original Note:
Today's Communication / Plan
-
Continue hydralazine, imdur, and coreg
Follow HRs and consider increasing coreg to 12.5mg BID as needed
Continue plavix and eliquis
Nephro managing diuretics
Impression / Plan
-
PCP: Dr. Wilbert Figueroa
Qa Reviewer: Dr. Santos
Impression:
Presented with profound generalized weakness 09/19/23
Recent admission with weight loss, dysphagia, presbyesophagus, Afib s/p CV and PCI 08/27/23 until 09/11/23
Acute hypoxic respiratory insufficiency 09/24/23
Abnormal CXR with B/L interstitial infiltrates concerning for pneumonitis vs pulmonary edema 09/23/23
Acute on chronic HFpEF, improved
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
Elevated Troponin
Right radial artery pseudoaneurysm
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
Paroxysmal typical atrial flutter
s/p transiently successful CV 09/08/23
recurrent Afib/flutter 09/09/23
Amiodarone initiated 09/05/2023 status post load
Eliquis initiated 09/05/2023
CAD
PCI LAD 2004 ([facility])
PCI RCA 07/2010 ([facility])
s/p OM stent 10/08/17 with residual 40% stenosis of mid LAD and 50-60% stenosis of prox PDA
s/p 2.5 mm Xience to mid LAD 09/04/23
HTN
Hypertension
Mild peak/mean 22/13 mmHg and TAM 1.4 cm sq by echo 05/2023
HTN
Psoriatic arthritis
Polymyalgia rheumatica
Hyperlipidemia
Hx interstitial lung disease on chronic oxygen at 2 L continuously
Hypothyroidism
Anxiety
Fibromyalgia
Chronic dyspnea
Hx cervical radiculopathy
Statin intolerance
Hx left rotator cuff tear
Urethral stone w/ hydronephrosis 01/2018
Shingles 09/2022
Syncope 09/2022 in setting of GI illness/dehydration
Chronic pain syndrome on oxycodone daily
Echo 01/06/18:�Mild LVH, EF 50-55% possible lateral hypokinesis, normal RV, severely dilated LA, Mild to moderate MR, Mild aortic stenosis, peak/mean gradient 29/16, aortic valve area 1.6 cm�, Mild TR, pulmonary pressure 51-56 mmHg
Echo October 2018: Ejection fraction 60-65 percent, mild MR, mild , mild-moderate AI�������
Echo 07/2020: EF 60-65%, mild with MPG 14 mm Hg, TAM 1.7 cm2.
Echo 03/04/23:�EF 55-60% with mild MR, mild , aortic root 4 cm, trace pericardial effusion
Echo 06/04/23: EF 55 to 60%, mild concentric LVH, mild mitral stenosis with mean transmitral gradient 6 mmHg, moderate MR, mild peak/mean gradient 22/13 mmHg and TAM 1.4 cm sq, trace TR with pulmonary artery systolic pressure 26 mmHg mildly
dilated aortic root
Echo 08/28/23: EF 40-45%, pleural effusion, not assessed
JIAN 09/08/23: EF 40-45%, mod to sev MR, evidence of
TTE 09/26/23: EF 30-35%, mod MR, mild AI, aortic sclerosis no stenosis, PASP 45 mmHg
Plan:
-Weight stable overnight at 157lbs. Creat down to 2.4, improved from peak 3.3 on 09/26. RHC on 09/30/23 showed PCWP 27 and CI 1.4.
-Milrinone gtt stopped 10/02.
-Nephrology has been managing diuretics. Currently on lasix 40mg IV BID.
-EF down to 30-35% by echo 09/26/23.
-Started on Coreg 6.25mg BID, hydralazine 25mg TID, and Imdur 30mg daily on 10/01. No MARIANO/ARB due to CAMRON on CKD.
-BPs improved. HR remains somewhat elevated, will follow HRs throughout the day today and if they remain elevated, would increase Coreg to 12.5mg BID
-LAD PCI 09/04/23 during last admission. Cont Plavix 75 mg daily. Would repeat echo in 40 days following intervention.
-Right radial pseudoaneurysm noted. Seen by vascular surgery but patient was unable to lay flat for attempted repair 09/24/23.
-Patient is not interested in another attempt and plan is for observation with ongoing limb restrictions.
-Remains in Afib/flutter, as noted above, HRs improving with coreg. Also on amiodarone 200 mg daily after completing 5+ gram load last admission.
-Eliquis 2.5 mg BID continued after brief interruption for attempt at radial artery repair. Of note, patient has had minor episodes of epistaxis. Hgb stable. Will monitor.
HPI: Patient was admitted 08/27/23 until 09/11/23 with weight loss and dysphagia and also new Afib/flutter. During that admission she had GI work-up that revealed presbyesophagus. She also had an abnormal stress test that led to cath with LAD PCI.
After cath patient had JIAN/CV with anglican of SR. She was discharged to home 09/11/23 following amiodarone load. She returned to 09/19/23 with CHF. Patient was diuresed with Lasix 40 mg IV daily. Cre was 2.9 on admission and peaked at 3.0. Cre
seemed to improve with IV diuresis and was 1.8 on 09/24/23. Patient was seen by vascular surgery for right wrist pain. Patient had cath via right radial approach and radial u/s 09/05/23 did not show radial aneurysm. Patient was given option of SNF vs
VN at last d/c and opted for home with VN. 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 [facility] her right wrist was increasingly swollen and painful so repeat right radial u/s performed and she now has a
right radial artery pseudoaneurysm. Patient presented to OR for repair using regional block and Versed and patient had orthopnea and hypoxia on the table and procedure cancelled. Patient is high risk for general anesthesia.
Progress Note - Qa Reviewer
Subjective
Date of Service: October 03, 2023
Breathing improving. Feeling overall fairly well. Still SOB w/ exertion.
Objective
Labs:
10/03/23 04:32
10/03/23 04:32
Labs
Hgb 10.8 g/dL (12.0-16.0) L 10/03/23 04:32
Hct 33.2 % (37.0-47.0) L 10/03/23 04:32
Plt Count 189 10^3/uL (130-400) 10/03/23 04:32
Sodium 138 mmol/L (135-145) 10/03/23 04:32
Potassium 4.1 mmol/L (3.5-5.1) 10/03/23 04:32
BUN 70 mg/dl (7-17) H 10/03/23 04:32
Creatinine 2.4 mg/dL (0.6-1.0) H 10/03/23 04:32
Glucose 107 mg/dl (70-99) H 10/03/23 04:32
Vital Signs and I&O:
Vital Signs
Temp Pulse Resp BP Pulse Ox
97.6 F 118 18 129/83 99
10/03/23 04:38 10/03/23 05:00 10/03/23 04:38 10/03/23 04:19 10/03/23 04:38
Vital Signs
Temp Pulse Resp BP Pulse Ox
97.6 F 118 18 129/83 99
10/03/23 04:38 10/03/23 05:00 10/03/23 04:38 10/03/23 04:19 10/03/23 04:38
Intake & Output
10/01/23 10/02/23 10/03/23 10/04/23
06:59 06:59 06:59 06:59
Intake Total 72.6 / 72.6 960 / 960 525 / 525
Output Total 1500 / 1500 1950 / 1950 400 / 400
Balance -1427.4 / -1427.4 -990 / -990 125 / 125
Physical Exam
Physical Exam
GEN: No distress, awake, alert, oriented x3
HEENT: supple, anicteric, mmm
LUNGS: CTA b/l, no wheezes/rales
CV: Irreg, S1/S2, no murmur
EXT: No clubbing or cyanosis, trace edema
NEURO: Gross non-focal
SKIN: Warm, dry, no rash
[2023-10-03] MEDS: PACERONE 200 MG PO (07:37)
[2023-10-03] MEDS: PLAVIX 75 MG PO (07:37)
[2023-10-03] MEDS: APRESOLINE 25 MG PO ×3 (07:37→21:31)
[2023-10-03] MEDS: IMDUR (EXTENDED RELEASE) 30 MG PO (07:38)
[2023-10-03] MEDS: PROTONIX 40 MG PO (07:38)
[2023-10-03] MEDS: COREG 6.25 MG PO (07:38)
[2023-10-03] MEDS: LASIX 40 MG IV ×2 (07:38→15:56)
[2023-10-03] MEDS: FLUSH (NSS) 1 FLUSH IV ×2 (07:42→15:58)
[2023-10-03] MEDS: DESENEX/MITRAZOL/ZEASORB 1 APPLIC TOPICAL ×2 (07:46→20:09)
[2023-10-03] MEDS: EFFEXOR XR 75 MG PO (07:49)
[2023-10-03] MEDS: ELIQUIS 2.5 MG PO ×2 (07:49→20:09)
--- NOTE | 2023-10-03 10:13 | W.PN.NEPH.PH ---
Today's Communication / Plan
-
continue lasix IV
Assessment/Plan
-
Impression:
CAMRON
CKD 3b ~1.8
Ischemic cardiomyopathy with EF of 30 to 35%
Interstitial lung disease on chronic O2 therapy
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
Presbyesophagus
Recurrent atrial fibs and flutter
Coronary artery disease
History of HTN
Psoriatic arthritis
left thoracentesis 900ml 09/28
Plan:
-follow BMP
-maintain lasix IV 40mg BID
-could eventually try RASi, SGLT2i once on po diuretic
-
-
Date of Service: October 03, 2023
CC / HPI / ROS
-
Chief Complaint:
CAMRON
History of Present Illness:
hemodynamically stable
creatinine down to 2.4
off milrinone
Remains on Lasix 40 mg IV twice daily for decompensated HF, weights stable
s/p RHC with wedge 27
remains on supplemental O2
Review of Systems:
non oliguric
no fevers
carlos
Weights essentially unchanged
Labs
-
Labs:
WBC 9.6 10^3/uL (4.8-10.8) 10/03/23 04:32
RBC 3.59 10^6/uL (4.20-5.40) L 10/03/23 04:32
Hgb 10.8 g/dL (12.0-16.0) L 10/03/23 04:32
Hct 33.2 % (37.0-47.0) L 10/03/23 04:32
Plt Count 189 10^3/uL (130-400) 10/03/23 04:32
Sodium 138 mmol/L (135-145) 10/03/23 04:32
Potassium 4.1 mmol/L (3.5-5.1) 10/03/23 04:32
Chloride 96 mmol/L (98-107) L 10/03/23 04:32
Carbon Dioxide 36 mmol/L (22-30) H 10/03/23 04:32
BUN 70 mg/dl (7-17) H 10/03/23 04:32
Creatinine 2.4 mg/dL (0.6-1.0) H 10/03/23 04:32
eGFR 19.07 10/03/23 04:32
Glucose 107 mg/dl (70-99) H 10/03/23 04:32
Calcium 8.6 mg/dl (8.4-10.2) 10/03/23 04:32
Spr-C-Odbbttpwqag Pept 9860 pg/ml 10/02/23 03:49
Albumin 2.7 g/dl (3.5-5.0) L 10/03/23 04:32
Physical Exam
-
Vital Signs:
Vital Signs
Temp Pulse Resp BP Pulse Ox
98.1 F 118 18 129/83 95
10/03/23 07:03 10/03/23 05:00 10/03/23 07:03 10/03/23 04:19 10/03/23 07:03
Cardiovascular:: Regular rate and rhythm
Respiratory:: Bilateral: Coarse
Lung Excursion:: Normal
Abdomen:: Nontender and Soft
Bowel Sounds:: Normal
Extremity Edema:: +1: Bilateral:
--- NOTE | 2023-10-03 10:37 | CM ---
Chart reviewed. Patient still being diuresed with IV Lasix. Patient is independent of ADLS, lives alone in a 55+ usp community, ambulates with a [facility], 1 [address], 1 [address], uses O2 2l overnight with [employer]. PT/OT evaluation
recommending SNF. Patient's daughter would prefer her to go to [facility] or a facility with a private room. Referrals sent to [facility], [facility] [place], [facility], [facility] and [facility]. Plan is for the person to
go to SNF once medically stable. CM to follow
--- NOTE | 2023-10-03 12:25 | W.PN.PUL3 ---
Today's Communication / Plan
-
Off IV milrinone, doing well
Remains stable on room air
Encouraged ambulation/IS
Hopeful discharge planning per team
No further recs from our standpoint
We will sign off at this time, please call with questions
Assessment
-
88-year-old female with complex cardiopulmonary history on chronic oxygen therapy, recent cardiac catheterization with LAD stent placement 09/04/2023, NSTEMI 09/01/2023, abnormal stress test, newly diagnosed atrial flutter with RVR 08/27/2023 on
amiodarone therapy since 09/05/2023, readmitted 09/19/2023, treated for heart failure found to have right radial artery pseudoaneurysm. Creatinine improved from 2.9-1.8 during hospital stay. Chest x-ray 09/22 showed questionable bilateral pneumonia.
Patient had acute episode of shortness of breath, orthopnea following regional block on 09/24/2023. Family did not want to pursue intubation for radial artery repair. We are asked to help from pulmonary standpoint.
Acute hypoxic respiratory insufficiency
Acute on chronic heart failure exacerbation with reduced EF - 30%
Orthopnea
Edema and congestion/cardiomeg on imaging
Cardiorenal syndrome
General fatigue, weakness, anorexia
Nausea/emesis/diarrhea preadmission
Atrial fibrillation/atrial flutter, newly diagnosed 08/27/2023
Acute on chronic renal insufficiency
Creatinine 2.9 on admission, improved to 1.8
Right radial artery pseudoaneurysm
Aortic stenosis, valve area 1.4 cm
Conditions present prior to admission:
ILD, on chronic oxygen therapy, 2 L
Obstructive sleep apnea suspected-reportedly negative studies in the past-positional therapy recommended.
Nocturnal hypoxemia
Hypothyroid.�
Fibromyalgia.�
CAD/stent.�
PMR
Osteoporosis.�
Hyperlipidemia.�
Psoriatic arthritis on chronic low-dose prednisone therapy
Followed by rheumatology.�
GERD.
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
Biliary dilation/cholecystectomy.� Bilateral TKR.� Right and left THP.� Back surgery..
Family history of lung cancer
Plan
Currently stable on room air
Continue nebulizers as needed
No need for steroids
Chest x-ray 09/26/2023-persistent cardiomegaly, slightly worsened aeration with increased interstitial edema and small left pleural effusion
Left chest ultrasound 09/24/2023-showing large L sided effusion
IR consult for L thora, s/p thora 09/28 with removal of 900mL
Chemistry pH 7.45 - wbc 501 - glu 89 - tp <2.0 - ldh 108--transudative pleural studies
Culture no growth to date, cyto negative
Most consistent with CHF
Continue diuresis as tolerated-off IV milrinone
Cardiorenal syndrome, renal following
Monitor renal function, electrolytes, intake/output, lower extremity edema and weight
Replace electrolytes as needed
UO seems improved on inotrope, 1500 output noted
Cardiology following-correspondence reviewed, RHC reviewed
Monitor rhythm and rate control
Patient on amiodarone
Note: EF 30-40%
Cultures reviewed
Finite course of antibiotics
Monitor leukocytosis
Right radial pseudoaneurysm noted, being followed by vascular
Unclear whether we will be able to pursue repair
DVT prophylaxis-on Eliquis
GI prophylaxis-on pantoprazole
Nutrition
Physical therapy
Diagnostic Data
CXR 09/24/23- MODERATE ACUTE INTERSTITIAL and ALVEOLAR CARDIOGENIC PULMONARY EDEMA which has markedly increased since 09/23/2023. Small bilateral pleural effusions. Large left lower lobe airspace consolidation (probably atelectasis). Moderate
cardiomegaly.
Chest x-ray from 04/22/2014 revealed no active disease. She has not had any new x-ray in the interim. Her pulmonary function test from 2012 was also re-reviewed.
CXR 04/23/23 ([facility]): reviewed on CD. Chronic changes left base.
Chest x-ray 05/07/23-mild blunting of bilateral costophrenic angles representing chronic pleural thickening, interval improvement in previously seen small bilateral pleural effusions.
Chest x-ray 06/03/23-mild cardiomegaly, unchanged
Lower extremity ultrasound 05/07/23-no evidence for DVT bilaterally.
VQ scan 05/07/23-low probability for pulmonary embolism
Abdominal CT 12/20/18 reveals clear lung bases per my review. Report suggests possible abnormal ilium. CT abdomen 01/05/18 reveals small bilateral pleural effusion and mild reticular thickening with interlobular septa.
CT CHEST 09/20/23-There is small left-sided pleural effusion with moderate parenchymal air space disease at the left lung base which may be atelectasis or pneumonia. There is small right-sided pleural effusion with underlying compressive atelectasis
at the posterior medial right lung base. Atherosclerosis. Cardiomegaly.
CT chest 10/27/17 reveals mild interstitial changes with ground glass abnormality image 37 with mild pleural effusion. Chest x-ray 08/15/18 reveals mild left lower lobe pneumonia. Chest x-ray 08/11/18 reveals bilateral patchy infiltrates.
PFT 04/02/18: FVC 2.41/111%, FEV1 1.94/122% ratio 80, TLC 3.53/80%, DLCO 12.11/69%.
[place] 05/01/23: FVC 1.32/59%, FEV1 1.07/65%, ratio 81. This has worsened
6MWT 05/01/23: Patient and related 300 feet for 3 minutes. Desaturation blessing 93% on room air, heart rate 88. Dyspnea scale 6/10.
ECHO 09/25/23: �Normal left ventricular chamber size. �Mild concentric left ventricular hypertrophy.�Moderately reduced left ventricular systolic function.�Global hypokinesis.�Left ventricular ejection fraction is 30-35%.�Normal right ventricular
size and function.�Moderate mitral regurgitation.�Mild aortic regurgitation.�Estimated pulmonary artery pressure of 45 mmHg.�Assuming a right atrial pressure of 3 mmHg.�Pulmonic valve is grossly normal but poorly visualized.�Pleural effusion
present.�The IVC is of normal size and demonstrates normal respiratory variation.�Compared to August 2023 Ejection fraction is now moderately reduced to 30%�compared to 40-45% in August.
Echo 03/04/23: Normal biventricular function, mild mitral regurgitation, aortic stenosis. Compared to prior study in 2018, EF has improved
All relevant imaging reviewed.
Subjective Data
-
Date of Service:
Date of Service: October 03, 2023
Chief Complaint: Pulmonary Follow Up and Dyspnea Follow Up
Subjective:
patient seen, no acute events on
no new complaints
feels nothing is good
Objective Data
Data Reviewed
Vital Signs / I&O / Oxygen:
Vital Signs
Temp Pulse Resp BP Pulse Ox
97.8 F 108 18 131/75 95
10/03/23 11:00 10/03/23 10:00 10/03/23 11:00 10/03/23 07:37 10/03/23 11:00
Intake and Output
10/02/23 10/03/23 10/04/23
06:59 06:59 06:59
Intake Total 960 / 960 525 / 525
Output Total 1950 / 1950 400 / 400
Balance -990 / -990 125 / 125
SaO2 95
Nasal Cannula flow liters per 3
minute
Physical Exam
General: Respiratory Distress (n), Comfortable and Other (NAD)
HEENT: Normocephalic, Anicteric and Moist Mucous Membranes
Cardiovascular: S1-S2, Regular Rhythm, Murmur (n) and Rub (n)
Respiratory: Clear, Wheeze (n), Crackles (Few basilar), Rhonchi (n), Non-Labored Respirations, Accessory Resp Muscle Use (n) and Stridor (n)
GI: Soft, Non Distended and Non Tender
Neurology: Awake, Alert, Oriented, AO x 3, No Motor Deficits, Lethargic (Sleeping comfortably) and Depressed
Skin: Warm, Good Color, Cyanosis (n), Bruising (Scattered ecchymoses) and Other (Right radial pseudoaneurysm)
Labs/Micro/Reports
Lab Data
10/03/23 04:32
10/03/23 04:32
Microbiology
09/29/23 15:56 Pleural Fluid Body Fluid Culture - Final
No Growth After 72 Hours
09/29/23 15:56 Pleural Fluid Gram Stain - Final
--- NOTE | 2023-10-03 15:15 | W.PN.HOSP.TC ---
Today's Communication/Plan
-
Inc coreg
Cont IV diuretics for today
Assessment / Plan
Assessment / Plan
# Acute on chronic hypoxic respiratory failure
# Acute on chronic HFpEF and HFrEF exacerbation (Chronically on 2L) - on 1L today
-Amiodarone to continue
-Incentive spirometer, Acapella
-Continue lasix on hold. f/u renal function.
-resume back on eliquis/plavix.
-Thoracentesis 09/28 - transudative most likely 2/2 to acute on chronic HFpEF
-RHC 09/29: Elevated left and right heart filling pressures with moderate pulmonary hypertension and low cardiac index.
-Status post milrinone, plan for discontinuation today as urine output decreased; Cont IV lasix - Scr trending down and still with dyspneic features
-Start hydral +Imdur combo
-Coreg for tachycardia- Increase today
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
-most likely cardiorenal
-s/p milrinone
-cont iv lasix
#RLL pneumonia - resolved
B/l Pleural effusion
-Versus worsening pleural effusion
-CT chest images reviewed from admission, small effusion and not amenable to thoracentesis
-Repeat cxr on 09/25 showing increase opacity in left costodiaphragmatic region
-Patient already finished 5 days of doxycycline therapy
-thora consistent with chf
# Non-Ischemic Myocardial Injury
-2/2 to acute chf and afib
-no chest pain
-cards consulted
# Right radial artery pseudoaneurysm
-had radial art access last month
-confirmed with vas US
-Vasc surg attempted sx under localized nerve block but patient had panic attack/hypoxia and sx was postponed as family declined to convert to [place]
--Patient is not interested in surgical intervention at this time.
-f/u vascular outpatient
# Nausea/vomiting - resolved
- no signs of acute abdomen
- symptomatic care
# Weight Loss
-has admitted to decrease PO intake/lack of appetite - this has also been an issue in the past that has been worked up by GI
-can f/u with GI/PCP outpatient for cancer screening if deems necessary: follows with Dr. Acevedo
-no n/v at this time
Poor Afib (unspecified)� control
CAD s/p PCI on 09/03/23
HLD
Hypothyroidism, f/u free t4
Spinal stenosis
PMR
Chronic transaminitis most likely / fatty liver
Intermittent postprandial pain - Was ebvaluated by GI on 08/29/23 - PPI and outpatient follow up recommended with PMHx of weight loss
DVT ppx - on Eliquis
Full code
09/27 patient suggesting not wanting any further treatment. Briefly discussed if patient wanted to pursue hospice although patient tracked back on her decision. Discussed possible switching resuscitation measures to DNR/DNI as well.
Total time spent on today's encounter was 53 minutes which included time spent in counseling the patient/family regarding diagnosis and treatment plan as listed above, goals of care, and symptom management. Case was discussed with nursing staff,
specialists, and care coordinators/case management. All labs and imaging personally reviewed by me. Remainder the time spent in detailed review of previous records, lab data, imaging, and other medical provider documentation.
Anticipated Discharge: 24 - 48 hours
Subjective/Interval History
-
Date of Service: October 03, 2023
States for dyspnea is worse today
Objective Data
-
Labs:
Laboratory Results
10/03/23
04:32
WBC 9.6
Hgb 10.8 L
Hct 33.2 L
Plt Count 189
Sodium 138
Potassium 4.1
Chloride 96 L
Carbon Dioxide 36 H
BUN 70 H
Creatinine 2.4 H
Glucose 107 H
Calcium 8.6
Total Bilirubin 1.0
AST 59 H
ALT 42 H
Alkaline Phosphatase 84
Vital Signs:
Vital Signs
Temp Pulse Resp BP Pulse Ox
97.8 F 108 18 131/75 95
10/03/23 11:00 10/03/23 10:00 10/03/23 11:00 10/03/23 07:37 10/03/23 11:00
I&O
10/02/23 10/03/23 10/04/23
06:59 06:59 06:59
Intake Total 960 / 960 525 / 525
Output Total 1950 / 1950 400 / 400
Balance -990 / -990 125 / 125
Review of Systems
-
History Source: Patient
All other systems: Not reviewed unless documented
Physical Exam
-
General: Conversant, Appears Chronically Ill and Obese
HEENT: Oxygen
Respiratory: Clear to Auscultation; Negative Wheezes or Rales
Cardiac: Regular Rhythm and S1/S2; Negative Murmur
GI: Soft, Nontender and Nondistended
Musculoskeletal: No Edema and Other (Right wrist pseudoaneurysm)
Neuro: Awake and Oriented
Data Reviewed
-
CT Scan: Image personally visualized and interpreted and Report Reviewed by me
Labs: Labs Reviewed by me
[2023-10-03] MEDS: ZETIA 10 MG PO (18:00)
[2023-10-03] MEDS: DELTASONE 5 MG PO (18:00)
[2023-10-03] MEDS: LIPITOR 40 MG PO (18:00)
--- NOTE | 2023-10-03 18:21 | PTCARENOTE ---
Pt oob in the chair all day. Room air sat 95%. Pt denies any pain or sob. OOB to the BR with the walker, gait steady.
[2023-10-03] MEDS: COREG 12.5 MG PO (20:09)
--- NOTE | 2023-10-03 22:17 | PTCARENOTE ---
Pt OOB @ change of shift- Reports that she was in the chair most of the day- helped into bed with a x1 assist and the RW. POC discussed- pt verbalized understanding. AFIB on the monitor 100s- 110s. Call valdes within reach.
[2023-10-04 05:09] VITALS: BP 119/67
[2023-10-04 06:11] LABS: Hematocrit 30.7 % (37.0-47.0); Mean Corp Hgb Conc. 32.6 g/dL (33.0-37.0); Mean Corpuscular Hgb 29.8 pg (27.0-31.0); Mean Corpuscular Volume 91.4 fL (81.0-99.0); Mean Platelet Volume 10.1 fL (7.4-10.4); Platelet Count 163 10^3/uL (130-400); Red Blood Cell Count 3.36 10^6/uL (4.20-5.40); Red Cell Dist. Width 14.7 % (11.5-14.5)
[2023-10-04 06:25] LABS: ALT (SGPT) 40 U/L (0-35); AST (SGOT) 54 U/L (14-36); Albumin 2.5 g/dl (3.5-5.0); Alkaline Phosphatase 80 U/L (38-126); Blood Urea Nitrogen 63 mg/dl (7-17); Calcium 8.2 mg/dl (8.4-10.2); Carbon Dioxide 35 mmol/L (22-30); Chloride 99 mmol/L (98-107); Estimated Creatinine Clearance 15 ml/min; Glucose 101 mg/dl (70-99); Potassium 3.5 mmol/L (3.5-5.1); Sodium 136 mmol/L (135-145); eGFR 19.07
[2023-10-04 07:00] VITALS: BP 114/69
[2023-10-04] MEDS: SYNTHROID 75 MCG PO (07:27)
[2023-10-04 08:00] VITALS: BMI 28.9
--- NOTE | 2023-10-04 08:14 | W.PN.CARDCBS ---
Addendum entered and electronically signed by Aubrey Goddard MD 10/04/23 09:48:
I saw and examined the patient.
The Civil Engineering Draftsperson's note was reviewed and I agree with the note.
Comment:
GEN: No distress, awake, Ox3
HEENT: supple, anicteric, mmm
LUNGS: scatt rhonchi
CV: Irreg, S1/S2, 1/6 syst LSB, no gallop
ABD: soft, BS+, NT/ND
EXT: No edema
NEURO: Gross non-focal
SKIN: No rash
Plan:
Will continue IV Lasix for another 24 hours and switch to p.o. in a.m. Replete potassium.
Ventricular rates are mildly elevated. Will increase Coreg to 12.5 mg twice daily. Continue Imdur and hydralazine. Creatinine at 2.4.
Hopefully we can optimize her the best as possible and eventually get her to rehab.
She does not desire surgery to fix her pseudoaneurysm.
Continue amiodarone and Eliquis.
Continue medical therapy for coronary arteries with recent PCI.
LFTs remain abnormal. cont Amiodarone/Atorvastatin.
Original Note:
Today's Communication / Plan
-
KCl 40 meq now and recheck BMP in AM
Consider changing to Lasix 40 mg PO BID
Impression / Plan
-
PCP: Dr. Wilbert Figueroa
Continuous Churn Buttermaker: Dr. Santos
Impression:
Presented with profound generalized weakness 09/19/23
Recent admission with weight loss, dysphagia, presbyesophagus, Afib s/p CV and PCI 08/27/23 until 09/11/23
Acute hypoxic respiratory insufficiency 09/24/23
Abnormal CXR with B/L interstitial infiltrates concerning for pneumonitis vs pulmonary edema 09/23/23
Acute on chronic HFpEF, improved
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
Elevated Troponin
Right radial artery pseudoaneurysm
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
Paroxysmal typical atrial flutter
s/p transiently successful CV 09/08/23
recurrent Afib/flutter 09/09/23
Amiodarone initiated 09/05/2023 status post load
Eliquis initiated 09/05/2023
CAD
PCI LAD 2004 ([facility])
PCI RCA 07/2010 ([facility])
s/p OM stent 10/08/17 with residual 40% stenosis of mid LAD and 50-60% stenosis of prox PDA
s/p 2.5 mm Xience to mid LAD 09/04/23
HTN
Hypertension
Mild peak/mean 22/13 mmHg and TAM 1.4 cm sq by echo 05/2023
HTN
Psoriatic arthritis
Polymyalgia rheumatica
Hyperlipidemia
Hx interstitial lung disease on chronic oxygen at 2 L continuously
Hypothyroidism
Anxiety
Fibromyalgia
Chronic dyspnea
Hx cervical radiculopathy
Statin intolerance
Hx left rotator cuff tear
Urethral stone w/ hydronephrosis 01/2018
Shingles 09/2022
Syncope 09/2022 in setting of GI illness/dehydration
Chronic pain syndrome on oxycodone daily
Echo 01/06/18:�Mild LVH, EF 50-55% possible lateral hypokinesis, normal RV, severely dilated LA, Mild to moderate MR, Mild aortic stenosis, peak/mean gradient /16, aortic valve area 1.6 cm�, Mild TR, pulmonary pressure 51-56 mmHg
Echo October 2018: Ejection fraction 60-65 percent, mild MR, mild , mild-moderate AI�������
Echo 07/2020: EF 60-65%, mild with MPG 14 mm Hg, TAM 1.7 cm2.
Echo 03/04/23:�EF 55-60% with mild MR, mild , aortic root 4 cm, trace pericardial effusion
Echo 06/04/23: EF 55 to 60%, mild concentric LVH, mild mitral stenosis with mean transmitral gradient 6 mmHg, moderate MR, mild peak/mean gradient 22/13 mmHg and TAM 1.4 cm sq, trace TR with pulmonary artery systolic pressure 26 mmHg mildly
dilated aortic root
Echo 08/28/23: EF 40-45%, pleural effusion, not assessed
JIAN 09/08/23: EF 40-45%, mod to sev MR, evidence of
TTE 09/26/23: EF 30-35%, mod MR, mild AI, aortic sclerosis no stenosis, PASP 45 mmHg
Plan:
-Need daily weight for 10/04/23, but weight down 3 lbs overall with milrinone this admission.
-Milrinone gtt ran from 09/30/23 until 10/03/23. RHC on 09/30/23 showed PCWP 27 and CI 1.4.
-Cre stable at 2.4.
-Patient remains on Lasix 40 mg IV BID. Consider transitioning to Lasix 40 mg PO BID. Nephrology following as well
-Potassium down to 3.5 on 10/04/23. Ordered KCl 40 meq now. Recheck BMP in AM
-EF down to 30-35% by echo 09/26/23.
-This admission her previous Toprol XL was changed to Coreg 12.5mg BID. Patient is also new to hydralazine 25mg TID, and Imdur 30mg daily on 10/02/23. No MARIANO/ARB/aldosterone antagonist due to CAMRON on CKD.
-LAD PCI 09/04/23 during last admission. Cont Plavix 75 mg daily. Would repeat echo in 40 days following intervention.
-Right radial pseudoaneurysm noted. Seen by vascular surgery but patient was unable to lay flat for attempted repair 09/24/23. Patient is not interested in another attempt and plan is for observation with ongoing limb restrictions.
-Remains in Afib/flutter, as noted above. HRs improving with higher dose Coreg started 10/03/23. Also on amiodarone 200 mg daily after completing 5+ gram load last admission.
-Eliquis 2.5 mg BID continued after brief interruption for attempt at radial artery repair. Patient with minor episodes of epistaxis that are self-limited. Hgb stable, will monitor.
HPI: Patient was admitted 08/27/23 until 09/11/23 with weight loss and dysphagia and also new Afib/flutter. During that admission she had GI work-up that revealed presbyesophagus. She also had an abnormal stress test that led to cath with LAD PCI.
After cath patient had JIAN/CV with anglican of SR. She was discharged to home 09/11/23 following amiodarone load. She returned to 09/19/23 with CHF. Patient was diuresed with Lasix 40 mg IV daily. Cre was 2.9 on admission and peaked at 3.0. Cre
seemed to improve with IV diuresis and was 1.8 on 09/24/23. Patient was seen by vascular surgery for right wrist pain. Patient had cath via right radial approach and radial u/s 09/05/23 did not show radial aneurysm. Patient was given option of SNF vs
VN at last d/c and opted for home with VN. She does not have [employer]S ANALYST because the of hidden fees during the signup process. Upon return to [facility] her right wrist was increasingly swollen and painful so repeat right radial u/s performed and she now has a
right radial artery pseudoaneurysm. Patient presented to OR for repair using regional block and Versed and patient had orthopnea and hypoxia on the table and procedure cancelled. Patient is high risk for general anesthesia.
Progress Note - Continuous Churn Buttermaker
Subjective
Date of Service: October 04, 2023
No palpitations
Objective
Labs:
10/04/23 05:12
10/04/23 05:12
Labs
Hgb 10.0 g/dL (12.0-16.0) L 10/04/23 05:12
Hct 30.7 % (37.0-47.0) L 10/04/23 05:12
Plt Count 163 10^3/uL (130-400) 10/04/23 05:12
Sodium 136 mmol/L (135-145) 10/04/23 05:12
Potassium 3.5 mmol/L (3.5-5.1) 10/04/23 05:12
BUN 63 mg/dl (7-17) H 10/04/23 05:12
Creatinine 2.4 mg/dL (0.6-1.0) H 10/04/23 05:12
Glucose 101 mg/dl (70-99) H 10/04/23 05:12
Vital Signs and I&O:
Vital Signs
Temp Pulse Resp BP Pulse Ox
97.6 F 97 22 114/69 100
10/04/23 07:00 10/04/23 07:00 10/04/23 07:00 10/04/23 07:00 10/04/23 07:00
Vital Signs
Temp Pulse Resp BP Pulse Ox
97.6 F 97 22 114/69 100
10/04/23 07:00 10/04/23 07:00 10/04/23 07:00 10/04/23 07:00 10/04/23 07:00
Intake & Output
10/02/23 10/03/23 10/04/23 10/05/23
06:59 06:59 06:59 06:59
Intake Total 960 / 960 525 / 525
Output Total 1950 / 1950 400 / 400
Balance -990 / -990 125 / 125
Physical Exam
Physical Exam
General: NAD, AAO x3
HEENT: EOMI, MMM
Heart: Afib on tele
Lungs: RA now, but wore 2 L overnight. No audible wheeze.
Abd: ND
Ext: No B/L LE edema
Neuro: Nonfocal
[2023-10-04] MEDS: IMDUR (EXTENDED RELEASE) 30 MG PO (08:30)
[2023-10-04] MEDS: APRESOLINE 25 MG PO ×3 (08:30→22:15)
[2023-10-04] MEDS: PROTONIX 40 MG PO (08:30)
[2023-10-04] MEDS: COREG 12.5 MG PO ×2 (08:30→10:44)
[2023-10-04] MEDS: LASIX 40 MG IV (08:30)
[2023-10-04] MEDS: DESENEX/MITRAZOL/ZEASORB 1 APPLIC TOPICAL ×2 (08:31→19:13)
[2023-10-04] MEDS: ELIQUIS 2.5 MG PO ×2 (08:31→19:13)
[2023-10-04] MEDS: PACERONE 200 MG PO (08:31)
[2023-10-04] MEDS: PLAVIX 75 MG PO (08:31)
[2023-10-04] MEDS: EFFEXOR XR 75 MG PO (08:35)
[2023-10-04] MEDS: KCL 40 MEQ PO (09:07)
[2023-10-04 11:11] VITALS: BP 123/96
--- NOTE | 2023-10-04 11:46 | W.PN.NEPH.PH ---
Today's Communication / Plan
-
po lasix
Assessment/Plan
-
Impression:
CAMRON
CKD 3b ~1.8
Ischemic cardiomyopathy with EF of 30 to 35%
Interstitial lung disease on chronic O2 therapy
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
Presbyesophagus
Recurrent atrial fibs and flutter
Coronary artery disease
History of HTN
Psoriatic arthritis
left thoracentesis 900ml 09/28
Plan:
-follow BMP
-lasix po 80mg BID
-could eventually try RASi, SGLT2i once on po diuretic
-KCl today
-
-
Date of Service: October 04, 2023
CC / HPI / ROS
-
Chief Complaint:
CAMRON
History of Present Illness:
hemodynamically stable
creatinine down to 2.4 stable
off milrinone
Remains on Lasix 40 mg IV twice daily for decompensated HF, weights stable
s/p RHC with wedge 27
remains on supplemental O2
Review of Systems:
non oliguric
no fevers
carlos
Weights essentially unchanged
Labs
-
Labs:
WBC 8.0 10^3/uL (4.8-10.8) 10/04/23 05:12
RBC 3.36 10^6/uL (4.20-5.40) L 10/04/23 05:12
Hgb 10.0 g/dL (12.0-16.0) L 10/04/23 05:12
Hct 30.7 % (37.0-47.0) L 10/04/23 05:12
Plt Count 163 10^3/uL (130-400) 10/04/23 05:12
Sodium 136 mmol/L (135-145) 10/04/23 05:12
Potassium 3.5 mmol/L (3.5-5.1) 10/04/23 05:12
Chloride 99 mmol/L (98-107) 10/04/23 05:12
Carbon Dioxide 35 mmol/L (22-30) H 10/04/23 05:12
BUN 63 mg/dl (7-17) H 10/04/23 05:12
Creatinine 2.4 mg/dL (0.6-1.0) H 10/04/23 05:12
eGFR 19.07 10/04/23 05:12
Glucose 101 mg/dl (70-99) H 10/04/23 05:12
Calcium 8.2 mg/dl (8.4-10.2) L 10/04/23 05:12
Fzu-J-Ywarsfoggjv Pept 9860 pg/ml 10/02/23 03:49
Albumin 2.5 g/dl (3.5-5.0) L 10/04/23 05:12
Physical Exam
-
Vital Signs:
Vital Signs
Temp Pulse Resp BP Pulse Ox
97.1 F 94 20 123/96 97
10/04/23 11:13 10/04/23 11:13 10/04/23 11:13 10/04/23 11:11 10/04/23 11:13
Cardiovascular:: Regular rate and rhythm
Respiratory:: Bilateral: Coarse
Lung Excursion:: Normal
Abdomen:: Nontender and Soft
Bowel Sounds:: Normal
Extremity Edema:: +1: Bilateral:
--- NOTE | 2023-10-04 14:43 | W.PN.HOSP.TC ---
Today's Communication/Plan
-
switch to PO lasix
increase coreg to 25mg bid
Assessment / Plan
Assessment / Plan
# Acute on chronic hypoxic respiratory failure
# Acute on chronic HFpEF and HFrEF exacerbation (Chronically on 2L) - on none today
-Amiodarone to continue
-Incentive spirometer, Acapella
-Continue lasix on hold. f/u renal function.
-resume back on eliquis/plavix.
-Thoracentesis 09/28 - transudative most likely 2/2 to acute on chronic HFpEF
-RHC 09/29: Elevated left and right heart filling pressures with moderate pulmonary hypertension and low cardiac index.
-Status post milrinone, plan for discontinuation today as urine output decreased; Cont IV lasix - Scr trending down and still with dyspneic features
-Start hydral +Imdur combo
-Coreg for tachycardia- Increase today
�Consideration of SGLT�I, Aldactone upon discharge
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
-most likely cardiorenal
-s/p milrinone
-Improved, switch to p.o. Lasix 80 mg twice daily
#RLL pneumonia - resolved
B/l Pleural effusion
-Versus worsening pleural effusion
-CT chest images reviewed from admission, small effusion and not amenable to thoracentesis
-Repeat cxr on 09/25 showing increase opacity in left costodiaphragmatic region
-Patient already finished 5 days of doxycycline therapy
-thora consistent with chf
# Non-Ischemic Myocardial Injury
-2/2 to acute chf and afib
-no chest pain
-cards consulted
# Right radial artery pseudoaneurysm
-had radial art access last month
-confirmed with vas US
-Vasc surg attempted sx under localized nerve block but patient had panic attack/hypoxia and sx was postponed as family declined to convert to [place]
--Patient is not interested in surgical intervention at this time.
-f/u vascular outpatient
# Nausea/vomiting - resolved
- no signs of acute abdomen
- symptomatic care
# Weight Loss
-has admitted to decrease PO intake/lack of appetite - this has also been an issue in the past that has been worked up by GI
-can f/u with GI/PCP outpatient for cancer screening if deems necessary: follows with Dr. Acevedo
-no n/v at this time
#Hypokalemia
-monitor and replete
Poor Afib (unspecified)� control
CAD s/p PCI on 09/03/23
HLD
Hypothyroidism, f/u free t4
Spinal stenosis
PMR
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
Intermittent postprandial pain - Was ebvaluated by GI on 08/29/23 - PPI and outpatient follow up recommended with PMHx of weight loss
DVT ppx - on Eliquis
Full code
09/27 patient suggesting not wanting any further treatment. Briefly discussed if patient wanted to pursue hospice although patient tracked back on her decision. Discussed possible switching resuscitation measures to DNR/DNI as well.
Total time spent on today's encounter was 54 minutes which included time spent in counseling the patient/family regarding diagnosis and treatment plan as listed above, goals of care, and symptom management. Case was discussed with nursing staff,
specialists, and care coordinators/case management. All labs and imaging personally reviewed by me. Remainder the time spent in detailed review of previous records, lab data, imaging, and other medical provider documentation.
Anticipated Discharge: 24 - 48 hours
Subjective/Interval History
-
Date of Service: October 04, 2023
Symptoms much improved today
Objective Data
-
Labs:
Laboratory Results
10/04/23
05:12
WBC 8.0
Hgb 10.0 L
Hct 30.7 L
Plt Count 163
Sodium 136
Potassium 3.5
Chloride 99
Carbon Dioxide 35 H
BUN 63 H
Creatinine 2.4 H
Glucose 101 H
Calcium 8.2 L
Total Bilirubin 1.0
AST 54 H
ALT 40 H
Alkaline Phosphatase 80
Vital Signs:
Vital Signs
Temp Pulse Resp BP Pulse Ox
97.1 F 94 20 123/96 97
10/04/23 11:13 10/04/23 11:13 10/04/23 11:13 10/04/23 11:11 10/04/23 11:13
I&O
10/03/23 10/04/23 10/05/23
06:59 06:59 06:59
Intake Total 525 / 525 240 / 240
Output Total 400 / 400
Balance 125 / 125 240 / 240
Review of Systems
-
History Source: Patient
All other systems: Not reviewed unless documented
Physical Exam
-
General: Conversant, Appears Chronically Ill and Obese
HEENT: Oxygen
Respiratory: Clear to Auscultation; Negative Wheezes or Rales
Cardiac: Regular Rhythm and S1/S2; Negative Murmur
GI: Soft, Nontender and Nondistended
Musculoskeletal: No Edema and Other (Right wrist pseudoaneurysm)
Neuro: Awake and Oriented
Data Reviewed
-
CT Scan: Image personally visualized and interpreted and Report Reviewed by me
Labs: Labs Reviewed by me
[2023-10-04 15:37] VITALS: BP 104/53
[2023-10-04] MEDS: LASIX 80 MG PO (15:37)
[2023-10-04] MEDS: ZETIA 10 MG PO (17:42)
[2023-10-04] MEDS: LIPITOR 40 MG PO (17:42)
[2023-10-04] MEDS: DELTASONE 5 MG PO (17:42)
--- NOTE | 2023-10-04 18:22 | PTCARENOTE ---
Pt states she feels much better today. OOB to the chair and to the BR with the walker one assist. Gait steady. Room air sat 98%. Denies any sob.
[2023-10-04 19:06] VITALS: BP 135/68
[2023-10-04] MEDS: COREG 25 MG PO (19:13)
--- NOTE | 2023-10-04 20:32 | PTCARENOTE ---
Pt seated in bed at change of shift- POC discussed- pt verbalized understanding. Ambulating as a stand by assistance and RW and she ambulated to the doorway without issue. Afib on the monitor HR 90s-100s.
[2023-10-04] MEDS: PEPCID 20 MG PO (22:15)
[2023-10-04 22:21] VITALS: BP 109/54
[2023-10-05 04:05] VITALS: BP 113/96
[2023-10-05] MEDS: SYNTHROID 75 MCG PO (04:13)
[2023-10-05 04:14] VITALS: BMI 29.1
[2023-10-05 04:56] LABS: Hematocrit 32.1 % (37.0-47.0); Hemoglobin 10.6 g/dL (12.0-16.0); Mean Corpuscular Hgb 30.2 pg (27.0-31.0); Mean Corpuscular Volume 91.5 fL (81.0-99.0); Platelet Count 173 10^3/uL (130-400); Red Blood Cell Count 3.51 10^6/uL (4.20-5.40); Red Cell Dist. Width 14.9 % (11.5-14.5); White Blood Cell Count 8.4 10^3/uL (4.8-10.8)
[2023-10-05 05:30] LABS: ALT (SGPT) 38 U/L (0-35); AST (SGOT) 55 U/L (14-36); Albumin 2.6 g/dl (3.5-5.0); Alkaline Phosphatase 80 U/L (38-126); Blood Urea Nitrogen 58 mg/dl (7-17); Calcium 8.6 mg/dl (8.4-10.2); Carbon Dioxide 33 mmol/L (22-30); Chloride 96 mmol/L (98-107); Estimated Creatinine Clearance 15 ml/min; Glucose 114 mg/dl (70-99); Potassium 3.9 mmol/L (3.5-5.1); Sodium 137 mmol/L (135-145); Total Bilirubin 1.2 mg/dl (0.2-1.3); Total Protein 5.4 g/dl (6.3-8.2); eGFR 18.16
[2023-10-05] MEDS: LASIX 80 MG PO ×2 (08:12→16:10)
[2023-10-05] MEDS: APRESOLINE 25 MG PO ×3 (08:12→22:36)
[2023-10-05] MEDS: IMDUR (EXTENDED RELEASE) 30 MG PO (08:12)
[2023-10-05] MEDS: ELIQUIS 2.5 MG PO ×2 (08:13→20:29)
[2023-10-05] MEDS: PROTONIX 40 MG PO (08:13)
[2023-10-05] MEDS: PLAVIX 75 MG PO (08:13)
[2023-10-05] MEDS: EFFEXOR XR 75 MG PO (08:13)
[2023-10-05] MEDS: PACERONE 200 MG PO (08:13)
[2023-10-05] MEDS: DESENEX/MITRAZOL/ZEASORB 1 APPLIC TOPICAL ×2 (08:13→20:29)
[2023-10-05] MEDS: COREG 25 MG PO ×2 (08:13→20:29)
[2023-10-05 08:20] VITALS: BP 121/74
--- NOTE | 2023-10-05 09:50 | W.PN.NEPH.PH ---
Today's Communication / Plan
-
follow weights
Assessment/Plan
-
Impression:
CAMRON
CKD 3b ~1.8
Ischemic cardiomyopathy with EF of 30 to 35%
Interstitial lung disease on chronic O2 therapy
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
Presbyesophagus
Recurrent atrial fibs and flutter
Coronary artery disease
History of HTN
Psoriatic arthritis
left thoracentesis 900ml 09/28
Plan:
-follow BMP
-lasix po 80mg BID
-could eventually try RASi, SGLT2i once on po diuretic and Cr stable
-
-
Date of Service: October 05, 2023
CC / HPI / ROS
-
Chief Complaint:
CAMRON
History of Present Illness:
hemodynamically stable
creatinine 2.5 stable
off milrinone
on Lasix po twice daily for HF
weights slightly up today
s/p RHC with wedge 27
remains on supplemental O2
Review of Systems:
non oliguric
no fevers
carlos
Labs
-
Labs:
WBC 8.4 10^3/uL (4.8-10.8) 10/05/23 04:09
RBC 3.51 10^6/uL (4.20-5.40) L 10/05/23 04:09
Hgb 10.6 g/dL (12.0-16.0) L 10/05/23 04:09
Hct 32.1 % (37.0-47.0) L 10/05/23 04:09
Plt Count 173 10^3/uL (130-400) 10/05/23 04:09
Sodium 137 mmol/L (135-145) 10/05/23 04:09
Potassium 3.9 mmol/L (3.5-5.1) 10/05/23 04:09
Chloride 96 mmol/L (98-107) L 10/05/23 04:09
Carbon Dioxide 33 mmol/L (22-30) H 10/05/23 04:09
BUN 58 mg/dl (7-17) H 10/05/23 04:09
Creatinine 2.5 mg/dL (0.6-1.0) H 10/05/23 04:09
eGFR 18.16 10/05/23 04:09
Glucose 114 mg/dl (70-99) H 10/05/23 04:09
Calcium 8.6 mg/dl (8.4-10.2) 10/05/23 04:09
Eed-L-Dpzndriqncx Pept 9860 pg/ml 10/02/23 03:49
Albumin 2.6 g/dl (3.5-5.0) L 10/05/23 04:09
Physical Exam
-
Vital Signs:
Vital Signs
Temp Pulse Resp BP Pulse Ox
97.6 F 103 16 121/74 95
10/05/23 08:20 10/05/23 08:20 10/05/23 08:20 10/05/23 08:20 10/05/23 08:20
Cardiovascular:: Regular rate and rhythm
Respiratory:: Bilateral: Coarse
Lung Excursion:: Normal
Abdomen:: Nontender and Soft
Bowel Sounds:: Normal
Extremity Edema:: +1: Bilateral:
--- NOTE | 2023-10-05 11:03 | W.PN.CARDCBS ---
Today's Communication / Plan
-
Overall improving.
Continue Coreg 25 p.o. twice daily, Imdur and hydralazine. Blood pressure is stable.
Continue Lasix 80 mg p.o. twice daily. Creatinine at 2.5.
She does not desire repair of her right pseudoaneurysm
Continue supplemental oxygen
Okay for rehab in a.m. from cardiology standpoint
Continue amiodarone and Eliquis.
Will decrease amiodarone to 100 mg once daily in 3 weeks
Impression / Plan
-
PCP: Dr. Wilbert Figueroa
Data Processing Auditor: Dr. Santos
Impression:
Presented with profound generalized weakness 09/19/23
Recent admission with weight loss, dysphagia, presbyesophagus, Afib s/p CV and PCI 08/27/23 until 09/11/23
Acute hypoxic respiratory insufficiency 09/24/23
Abnormal CXR with B/L interstitial infiltrates concerning for pneumonitis vs pulmonary edema 09/23/23
Acute on chronic HFpEF, improved
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
Elevated Troponin
Right radial artery pseudoaneurysm
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
Paroxysmal typical atrial flutter
s/p transiently successful CV 09/08/23
recurrent Afib/flutter 09/09/23
Amiodarone initiated 09/05/2023 status post load
Eliquis initiated 09/05/2023
CAD
PCI LAD 2004 ([facility])
PCI RCA 07/2010 ([facility])
s/p OM stent 10/08/17 with residual 40% stenosis of mid LAD and 50-60% stenosis of prox PDA
s/p 2.5 mm Xience to mid LAD 09/04/23
HTN
Hypertension
Mild peak/mean 22/13 mmHg and TAM 1.4 cm sq by echo 05/2023
HTN
Psoriatic arthritis
Polymyalgia rheumatica
Hyperlipidemia
Hx interstitial lung disease on chronic oxygen at 2 L continuously
Hypothyroidism
Anxiety
Fibromyalgia
Chronic dyspnea
Hx cervical radiculopathy
Statin intolerance
Hx left rotator cuff tear
Urethral stone w/ hydronephrosis 01/2018
Shingles 09/2022
Syncope 09/2022 in setting of GI illness/dehydration
Chronic pain syndrome on oxycodone daily
Echo 01/06/18:�Mild LVH, EF 50-55% possible lateral hypokinesis, normal RV, severely dilated LA, Mild to moderate MR, Mild aortic stenosis, peak/mean gradient 29/16, aortic valve area 1.6 cm�, Mild TR, pulmonary pressure 51-56 mmHg
Echo October 2018: Ejection fraction 60-65 percent, mild MR, mild , mild-moderate AI�������
Echo 07/2020: EF 60-65%, mild with MPG 14 mm Hg, TAM 1.7 cm2.
Echo 03/04/23:�EF 55-60% with mild MR, mild , aortic root 4 cm, trace pericardial effusion
Echo 06/04/23: EF 55 to 60%, mild concentric LVH, mild mitral stenosis with mean transmitral gradient 6 mmHg, moderate MR, mild peak/mean gradient 22/13 mmHg and TAM 1.4 cm sq, trace TR with pulmonary artery systolic pressure 26 mmHg mildly
dilated aortic root
Echo 08/28/23: EF 40-45%, pleural effusion, not assessed
JIAN 09/08/23: EF 40-45%, mod to sev MR, evidence of
TTE 09/26/23: EF 30-35%, mod MR, mild AI, aortic sclerosis no stenosis, PASP 45 mmHg
Plan:
-Clinically improved. Now on Lasix 80 mg p.o. twice daily. Nephrology following.
-Milrinone gtt ran from 09/30/23 until 10/03/23. RHC on 09/30/23 showed PCWP 27 and CI 1.4.
-Cre stable at 2.5
-EF down to 30-35% by echo 09/26/23.
-This admission her previous Toprol XL was changed to Coreg 25mg BID. Patient is also new to hydralazine 25mg TID, and Imdur 30mg daily on 10/02/23. No MARIANO/ARB/aldosterone antagonist due to CAMRON on CKD.
-LAD PCI 09/04/23 during last admission. Cont Plavix 75 mg daily. Would repeat echo in 40 days following intervention.
-Right radial pseudoaneurysm noted. Seen by vascular surgery but patient was unable to lay flat for attempted repair 09/24/23. Patient is not interested in another attempt and plan is for observation with ongoing limb restrictions.
-Remains in Afib/flutter, as noted above. HRs improving with higher dose Coreg started 10/03/23. Also on amiodarone 200 mg daily after completing 5+ gram load last admission.
-Eliquis 2.5 mg BID continued after brief interruption for attempt at radial artery repair. Patient with minor episodes of epistaxis that are self-limited. Hgb stable, will monitor.
HPI: Patient was admitted 08/27/23 until 09/11/23 with weight loss and dysphagia and also new Afib/flutter. During that admission she had GI work-up that revealed presbyesophagus. She also had an abnormal stress test that led to cath with LAD PCI.
After cath patient had JIAN/CV with nondenominational of SR. She was discharged to home 09/11/23 following amiodarone load. She returned to 09/19/23 with CHF. Patient was diuresed with Lasix 40 mg IV daily. Cre was 2.9 on admission and peaked at 3.0. Cre
seemed to improve with IV diuresis and was 1.8 on 09/24/23. Patient was seen by vascular surgery for right wrist pain. Patient had cath via right radial approach and radial u/s 09/05/23 did not show radial aneurysm. Patient was given option of SNF vs
VN at last d/c and opted for home with VN. She does not have [employer] because the of hidden fees during the signup process. Upon return to [facility] her right wrist was increasingly swollen and painful so repeat right radial u/s performed and she now has a
right radial artery pseudoaneurysm. Patient presented to OR for repair using regional block and Versed and patient had orthopnea and hypoxia on the table and procedure cancelled. Patient is high risk for general anesthesia.
Progress Note - Data Processing Auditor
Subjective
Date of Service: October 05, 2023
Continues to slowly improve. Breathing has gotten better. No chest pains. Rare palpitations.
Objective
Labs:
10/05/23 04:09
10/05/23 04:09
Labs
Hgb 10.6 g/dL (12.0-16.0) L 10/05/23 04:09
Hct 32.1 % (37.0-47.0) L 10/05/23 04:09
Plt Count 173 10^3/uL (130-400) 10/05/23 04:09
Sodium 137 mmol/L (135-145) 10/05/23 04:09
Potassium 3.9 mmol/L (3.5-5.1) 10/05/23 04:09
BUN 58 mg/dl (7-17) H 10/05/23 04:09
Creatinine 2.5 mg/dL (0.6-1.0) H 10/05/23 04:09
Glucose 114 mg/dl (70-99) H 10/05/23 04:09
Vital Signs and I&O:
Vital Signs
Temp Pulse Resp BP Pulse Ox
97.6 F 103 16 121/74 95
10/05/23 08:20 10/05/23 08:20 10/05/23 08:20 10/05/23 08:20 10/05/23 08:20
Vital Signs
Temp Pulse Resp BP Pulse Ox
97.6 F 103 16 121/74 95
10/05/23 08:20 10/05/23 08:20 10/05/23 08:20 10/05/23 08:20 10/05/23 08:20
Intake & Output
03/10/04/23 10/05/23 10/06/23
06:59 06:59 06:59 06:59
Intake Total 525 / 525 240 / 240
Output Total 400 / 400 350 / 350
Balance 125 / 125 -110 / -110
Physical Exam
Physical Exam
GEN: No distress, awake, Ox3
HEENT: supple, anicteric, mmm
LUNGS: Scattered rhonchi
CV: Irreg, S1/S2, 1/6 syst LSB, S4+
ABD: soft, BS+, NT/ND
EXT: Right wrist pseudoaneurysm
NEURO: Gross non-focal
SKIN: No rash
[2023-10-05 11:41] VITALS: BP 126/49
--- NOTE | 2023-10-05 15:10 | W.PN.HOSP.TC ---
Today's Communication/Plan
-
ready for dc
cont po lasix
Coreg cont
Assessment / Plan
Assessment / Plan
# Acute on chronic hypoxic respiratory failure
# Acute on chronic HFpEF and HFrEF exacerbation (Chronically on 2L) - on none today
-Amiodarone to continue - decrease amiodarone to 100 mg once daily in 3 weeks
-Incentive spirometer, Acapella
-Continue lasix on hold. f/u renal function.
-resume back on eliquis/plavix.
-Thoracentesis 09/28 - transudative most likely 2/2 to acute on chronic HFpEF
-RHC 09/29: Elevated left and right heart filling pressures with moderate pulmonary hypertension and low cardiac index.
-Status post milrinone, plan for discontinuation as urine output decreased; IV lasix switched to p.o. Lasix 80 mg p.o. twice daily
-Start hydral +Imdur combo
-Coreg for tachycardia-continue Coreg 25 mg p.o. twice daily
�Consideration of SGLT�I, Aldactone upon discharge once Scr stable
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
-most likely cardiorenal
-s/p milrinone
-Improved, switch to p.o. Lasix 80 mg twice daily
#RLL pneumonia - resolved
B/l Pleural effusion
-Versus worsening pleural effusion
-CT chest images reviewed from admission, small effusion and not amenable to thoracentesis
-Repeat cxr on 09/25 showing increase opacity in left costodiaphragmatic region
-Patient already finished 5 days of doxycycline therapy
-thora consistent with chf
# Non-Ischemic Myocardial Injury
-2/2 to acute chf and afib
-no chest pain
-cards consulted
# Right radial artery pseudoaneurysm
-had radial art access last month
-confirmed with vasc US
-Vasc surg attempted sx under localized nerve block but patient had panic attack/hypoxia and sx was postponed as family declined to convert to [place]
--Patient is not interested in surgical intervention at this time.
-f/u vascular outpatient
# Nausea/vomiting - resolved
- no signs of acute abdomen
- symptomatic care
# Weight Loss
-has admitted to decrease PO intake/lack of appetite - this has also been an issue in the past that has been worked up by GI
-can f/u with GI/PCP outpatient for cancer screening if deems necessary: follows with Dr. Acevedo
-no n/v at this time
#Hypokalemia
-monitor and replete
Poor Afib (unspecified)� control
CAD s/p PCI on 09/03/23
HLD
Hypothyroidism, f/u free t4
Spinal stenosis
PMR
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
Intermittent postprandial pain - Was evaluated by GI on 08/29/23 - PPI and outpatient follow up recommended with PMHx of weight loss
DVT ppx - on Eliquis
Full code
Discussed possible switching resuscitation measures to DNR/DNI as well.
Anticipated Discharge: 24 - 48 hours
Subjective/Interval History
-
Date of Service: October 05, 2023
No acute events
Objective Data
-
Labs:
Laboratory Results
10/05/23
04:09
WBC 8.4
Hgb 10.6 L
Hct 32.1 L
Plt Count 173
Sodium 137
Potassium 3.9
Chloride 96 L
Carbon Dioxide 33 H
BUN 58 H
Creatinine 2.5 H
Glucose 114 H
Calcium 8.6
Total Bilirubin 1.2
AST 55 H
ALT 38 H
Alkaline Phosphatase 80
Vital Signs:
Vital Signs
Temp Pulse Resp BP Pulse Ox
97.6 F 103 16 121/74 95
10/05/23 08:20 10/05/23 08:20 10/05/23 08:20 10/05/23 08:20 10/05/23 08:20
I&O
10/04/23 10/05/23 10/06/23
06:59 06:59 06:59
Intake Total 240 / 240
Output Total 350 / 350
Balance -110 / -110
Review of Systems
-
History Source: Patient
All other systems: Not reviewed unless documented
Physical Exam
-
General: Conversant, Appears Chronically Ill and Obese
HEENT: Oxygen
Respiratory: Clear to Auscultation; Negative Wheezes or Rales
Cardiac: Regular Rhythm and S1/S2; Negative Murmur
GI: Soft, Nontender and Nondistended
Musculoskeletal: No Edema and Other (Right wrist pseudoaneurysm)
Neuro: Awake and Oriented
Data Reviewed
-
CT Scan: Image personally visualized and interpreted and Report Reviewed by me
Labs: Labs Reviewed by me
[2023-10-05 16:16] VITALS: BP 125/69
[2023-10-05] MEDS: ZETIA 10 MG PO (17:18)
[2023-10-05] MEDS: LIPITOR 40 MG PO (17:19)
[2023-10-05] MEDS: DELTASONE 5 MG PO (17:20)
--- NOTE | 2023-10-05 18:34 | PTCARENOTE ---
Pt doing well today. States she feels slightly weaker than yesterday. Pt ambulated in the hallway with the nurse. Gait steady with the walker. Mild LOVELACE with exertion. Visiting with family all day.
[2023-10-05 18:47] VITALS: BP 133/83
[2023-10-05 22:27] VITALS: BP 113/68
[2023-10-06 02:50] VITALS: BP 112/96
[2023-10-06 03:05] LABS: Hematocrit 30.7 % (37.0-47.0); Hemoglobin 10.3 g/dL (12.0-16.0); Mean Corp Hgb Conc. 33.6 g/dL (33.0-37.0); Mean Corpuscular Hgb 30.1 pg (27.0-31.0); Mean Corpuscular Volume 89.8 fL (81.0-99.0); Platelet Count 167 10^3/uL (130-400); Red Blood Cell Count 3.42 10^6/uL (4.20-5.40)
[2023-10-06 03:32] LABS: Blood Urea Nitrogen 56 mg/dl (7-17); Calcium 8.6 mg/dl (8.4-10.2); Carbon Dioxide 34 mmol/L (22-30); Chloride 96 mmol/L (98-107); Estimated Creatinine Clearance 15 ml/min; Glucose 125 mg/dl (70-99); Potassium 3.7 mmol/L (3.5-5.1); Sodium 136 mmol/L (135-145); eGFR 19.07
[2023-10-06 06:00] VITALS: BMI 28.7
[2023-10-06] MEDS: SYNTHROID 75 MCG PO (06:09)
[2023-10-06 07:48] VITALS: BP 107/88
[2023-10-06] MEDS: LASIX 80 MG PO (08:47)
[2023-10-06] MEDS: PLAVIX 75 MG PO (08:47)
[2023-10-06] MEDS: PROTONIX 40 MG PO (08:47)
[2023-10-06] MEDS: APRESOLINE 25 MG PO (08:47)
[2023-10-06] MEDS: EFFEXOR XR 75 MG PO (08:47)
[2023-10-06] MEDS: COREG 25 MG PO (08:47)
[2023-10-06] MEDS: IMDUR (EXTENDED RELEASE) 30 MG PO (08:48)
[2023-10-06] MEDS: ELIQUIS 2.5 MG PO (08:48)
[2023-10-06] MEDS: DESENEX/MITRAZOL/ZEASORB 1 APPLIC TOPICAL (08:48)
[2023-10-06] MEDS: PACERONE 200 MG PO (08:48)
--- NOTE | 2023-10-06 10:46 | CM ---
Reviewed chart. Telephone call to [facility] to confirm bed availability. [facility] Admission confirms bed available today. Updated attending physician. He states she is medically stable to go to [facility] today.
Reviewed wheelchair van and out of pocket cost with patient and daughter Rosario. They are agreeable to the wheelchair van. Tele[facility] call to [facility] to set up transportation and give payment. [facility] can transport today at
2:30 p.m. Updated r.n and community development coordinator. Updated [facility] Admission. Medical work-up in progress. The discharge plan is to go to [facility] today.
[2023-10-06 11:04] VITALS: PULSE 93
[2023-10-06 11:15] VITALS: BP 122/85
--- NOTE | 2023-10-06 11:29 | W.PN.HOSP.TC ---
Addendum entered and electronically signed by Donnell Jeronimo MD 10/06/23 15:56:
[id number]
Addendum entered and electronically signed by Donnell Jeronimo MD 10/06/23 13:56:
Add digoxin 62.5 mcg 6 days a week with dig level in 1 week. Dig level in 1 week
Original Note:
Today's Communication/Plan
-
80 mg lasix bid
amio 200mg daily x 3 weeks, then drop down to 100mg daily
Coreg 25mg daily
BMP in 3-5 days with pcp
Imdur, Hydral
F/u Cards, GI, PCP, Pulm, Vascular outpatient
Assessment / Plan
Assessment / Plan
# Acute on chronic hypoxic respiratory failure
# Acute on chronic HFpEF and HFrEF exacerbation (Chronically on 2L) - on none today
-Amiodarone to continue - decrease amiodarone to 100 mg once daily in 3 weeks
-Incentive spirometer, Acapella
-Continue lasix on hold. f/u renal function.
-resume back on eliquis/plavix.
-Thoracentesis 09/28 - transudative most likely 2/2 to acute on chronic HFpEF
-RHC 09/29: Elevated left and right heart filling pressures with moderate pulmonary hypertension and low cardiac index.
-Status post milrinone, plan for discontinuation as urine output decreased; IV lasix switched to p.o. Lasix 80 mg p.o. twice daily
-Start hydral +Imdur combo
-Coreg for tachycardia-continue Coreg 25 mg p.o. twice daily, titrate up as needed outpatient
�Consideration of SGLT�I, Aldactone outpatient once Scr stable
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
-most likely cardiorenal
-s/p milrinone
-Improved, switch to p.o. Lasix 80 mg twice daily
� Follow BMP in 3 to 5 days with PCP/cardiology
#RLL pneumonia - resolved
B/l Pleural effusion
-Versus worsening pleural effusion
-CT chest images reviewed from admission, small effusion and not amenable to thoracentesis
-Repeat cxr on 09/25 showing increase opacity in left costodiaphragmatic region
-Patient already finished 5 days of doxycycline therapy
-thora consistent with chf
# Non-Ischemic Myocardial Injury
-2/2 to acute chf and afib
-no chest pain
-cards consulted
# Right radial artery pseudoaneurysm
-had radial art access last month
-confirmed with vasc US
-Vasc surg attempted sx under localized nerve block but patient had panic attack/hypoxia and sx was postponed as family declined to convert to [place]
--Patient is not interested in surgical intervention at this time.
-f/u vascular outpatient
# Nausea/vomiting - resolved
- no signs of acute abdomen
- symptomatic care
# Weight Loss
-has admitted to decrease PO intake/lack of appetite - this has also been an issue in the past that has been worked up by GI
-can f/u with GI/PCP outpatient for cancer screening if deems necessary: follows with Dr. Acevedo
-no n/v at this time
#Hypokalemia
-monitor and replete
Poor Afib (unspecified)�see plan above; 20 mg daily amiodarone for 3 weeks, then drop to 200 mg daily as per cardiologyMore than 30 minutes spent in discharge including
CAD s/p PCI on 09/03/23
HLD
Hypothyroidism, f/u free t4
Spinal stenosis
PMR
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
Intermittent postprandial pain - Was evaluated by GI on 08/29/23 - PPI and outpatient follow up recommended with PMHx of weight loss
DVT ppx - on Eliquis
Full code
More than 30 minutes spent in discharge including
Final examination of the patient
Summarizing hospital stay
Instructions for continuing care to all relevant caregivers
Preparation of discharge records, prescriptions, and referral forms
Total time spent (35 in minutes):
Anticipated Discharge: Today
Subjective/Interval History
-
Date of Service: October 06, 2023
No acute events, sitting in chair resting comfortably
Objective Data
-
Labs:
Laboratory Results
10/06/23
02:51
WBC 9.0
Hgb 10.3 L
Hct 30.7 L
Plt Count 167
Sodium 136
Potassium 3.7
Chloride 96 L
Carbon Dioxide 34 H
BUN 56 H
Creatinine 2.4 H
Glucose 125 H
Calcium 8.6
Vital Signs:
Vital Signs
Temp Pulse Resp BP Pulse Ox
97.8 F 115 18 107/88 96
10/06/23 11:20 10/06/23 09:00 10/06/23 11:20 10/06/23 08:48 10/06/23 11:20
I&O
10/05/23 10/06/23 10/07/23
06:59 06:59 06:59
Intake Total 240 / 240 300 / 300
Output Total 350 / 350
Balance -110 / -110 300 / 300
Review of Systems
-
History Source: Patient
All other systems: Not reviewed unless documented
Physical Exam
-
General: Conversant, Appears Chronically Ill and Obese
HEENT: Oxygen
Respiratory: Clear to Auscultation; Negative Wheezes or Rales
Cardiac: Regular Rhythm and S1/S2; Negative Murmur
GI: Soft, Nontender and Nondistended
Musculoskeletal: No Edema and Other (Right wrist pseudoaneurysm)
Neuro: Awake and Oriented
Data Reviewed
-
CT Scan: Image personally visualized and interpreted and Report Reviewed by me
Labs: Labs Reviewed by me
--- NOTE | 2023-10-06 11:32 | W.DS.TRANS ---
DC Summary - Housing Director
-
Discharge Instructions:
Sleep Apnea Risk Low
Discharge Diagnosis/Procedures # Acute on chronic hypoxic respiratory failure
# Acute on chronic HFpEF and HFrEF exacerbation
(Chronically on 2L) - on none today
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
Diet Low Cholesterol,Low Fat,Restrict fluids to 48 oz
Activity As tolerated
Blood Work bmp in 3-5 days with pcp
Instructions: *[facility] Heart Failure Instructions
Stand-Alone Forms:
Changes to Home Medications: Yes
Discharge Medications:
DC Medications w/original date entered in [employer]
venlafaxine 75 mg capsule,extended release 24 hr 75 mg PO DAILY Depression 12/09/17
prednisone 5 mg tablet 5 mg PO QPM INFLAMMATION 01/05/18
cholecalciferol (vitamin D3) 25 mcg (1,000 unit) tablet 1,000 units PO QPM Supplement 08/11/18
ezetimibe 10 mg tablet 10 mg PO QPM High cholesterol 08/11/18
Simponi ARIA 1 dose IV Q8W psoriatic arthritis 06/03/23
therapeutic multivitamin 1 tab PO QPM Supplement 06/03/23
levothyroxine 75 mcg tablet 75 mcg PO DAILY AT 0700 30 days #30 tabs 06/06/23
apixaban 2.5 mg tablet (Eliquis) 2.5 mg PO BID Blood clot prevention/tx #60 tabs 09/11/23
atorvastatin 40 mg tablet 40 mg PO QPM High cholesterol #30 tabs 09/11/23
clopidogrel 75 mg tablet 75 mg PO DAILY Heart disease/condition #30 tabs 09/11/23
pantoprazole 40 mg tablet,delayed release 40 mg PO DAILY Gastrointestinal issue #30 tabs 09/11/23
potassium chloride 20 mEq tablet,extended release(part/cryst) 20 meq PO DAILY Electrolyte Repletion #30 tabs 09/11/23
amiodarone 100 mg tablet 100 mg PO DAILY #60 tabs 10/06/23�
amiodarone 200 mg tablet (Pacerone) 200 mg PO DAILY 21 days #21 tabs 10/06/23�
carvedilol 25 mg tablet 25 mg PO BID 30 days #60 tabs 10/06/23�
famotidine 20 mg tablet 20 mg PO Q48H #0 tabs 10/06/23�
furosemide 80 mg tablet 80 mg PO BID@0800,1600 #0 tabs 10/06/23�
hydralazine 25 mg tablet 25 mg PO TID 30 days #90 tabs 10/06/23�
isosorbide mononitrate 30 mg tablet,extended release 24 hr 30 mg PO DAILY 30 days #30 tabs 10/06/23�
miconazole nitrate 2 % topical powder (Miconazorb AF) 1 applic topical BID #0 grams 10/06/23�
Home Medication Changes
amiodarone 100 mg tablet 100 mg PO DAILY #60 tabs 10/06/23�
amiodarone 200 mg tablet (Pacerone) 200 mg PO DAILY 21 days #21 tabs 10/06/23�
carvedilol 25 mg tablet 25 mg PO BID 30 days #60 tabs 10/06/23�
famotidine 20 mg tablet 20 mg PO Q48H #0 tabs 10/06/23�
furosemide 80 mg tablet 80 mg PO BID@0800,1600 #0 tabs 10/06/23�
hydralazine 25 mg tablet 25 mg PO TID 30 days #90 tabs 10/06/23�
isosorbide mononitrate 30 mg tablet,extended release 24 hr 30 mg PO DAILY 30 days #30 tabs 10/06/23�
miconazole nitrate 2 % topical powder (Miconazorb AF) 1 applic topical BID #0 grams 10/06/23�
Pending Results: No
--- NOTE | 2023-10-06 12:17 | W.PN.CARDCBS ---
Addendum entered and electronically signed by Pavel Russell MD 10/06/23 13:43:
Allergies: Plaquenil, penicillin
Home meds: Amiodarone 100 mg alternating with 200 mg, atorvastatin 40 mg a day, carvedilol 25 mg twice daily, clopidogrel 75 mg a day, Eliquis 2.5 twice daily, Zetia 10 mg a day, furosemide 80 p.o. twice daily, hydralazine 25 p.o. 3 times daily,
isosorbide mononitrate 30 mg a day levothyroxine 75 mcg daily, pantoprazole 40 mg a day, potassium 20 mill equivalents a day, prednisone 5 mg nightly, Simponi, venlafaxine
Current meds: Atorvastatin 40 mg a day, ezetimibe 10 mg a day, Synthroid 75 mcg daily, amiodarone 200 mg a day, pantoprazole, prednisone 5 mg a day, venlafaxine, clopidogrel 75 mg a day, apixaban 2.5 mg twice daily, famotidine 20 mg every 48 hours,
hydralazine 25 3 times daily, isosorbide 30 mg daily, carvedilol 25 mg twice daily, furosemide 80 mg twice daily
PMH/PSH/SH/FH: Reviewed
Review of systems negative except as above
122/85, pulse 97, respirate 18, weight is 71 kg, down 1.1 kg
No distress, dressed, prepared to go to [facility] rehab, head neck exam unremarkable, few crackles in bases, still slightly tachycardic on telemetry, systolic murmur, 1+ edema, abdomen benign, neuro nonfocal
Hemoglobin 10.3, potassium 3.7, BUN/creatinine 56 and 2.4, creatinine had been 2.5 overall stable
Impression:
See below
Plan:
Overall significantly improved and okay for discharge though heart rate is still somewhat rapid.
Add digoxin 62.5 mcg 6 days a week with dig level in 1 week.
Arrangements for cardiology follow-up in place.
Follow-up BMP has been requested
Okay for discharge from cardiac standpoint..
Original Note:
Today's Communication / Plan
-
Continue Lasix 80 mg twice a day
Continue Coreg 25 mg twice a day as well as amiodarone and Eliquis
Does not desire repair of right pseudoaneurysm
Stable from cardiac standpoint for discharge to rehab
Outpatient follow-up scheduled
Would check CBC and BMP in 7 to 10 days
Impression / Plan
-
PCP: Dr. Wilbert Figueroa
Radiation Therapy Technician: Dr. Santos
Impression:
Presented with profound generalized weakness 09/19/23
Recent admission with weight loss, dysphagia, presbyesophagus, Afib s/p CV and PCI 08/27/23 until 09/11/23
Acute hypoxic respiratory insufficiency 09/24/23
Abnormal CXR with B/L interstitial infiltrates concerning for pneumonitis vs pulmonary edema 09/23/23
Left-sided pleural effusion status post thoracentesis 09/29/2023
Acute on chronic HFpEF, improved
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
Elevated Troponin
Right radial artery pseudoaneurysm
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
Paroxysmal typical atrial flutter
s/p transiently successful CV 09/08/23
recurrent Afib/flutter 09/09/23
Amiodarone initiated 09/05/2023 status post load
Eliquis initiated 09/05/2023
CAD
PCI LAD 2004 ([facility])
PCI RCA 07/2010 ([facility])
s/p OM stent 10/08/17 with residual 40% stenosis of mid LAD and 50-60% stenosis of prox PDA
s/p 2.5 mm Xience to mid LAD 09/04/23
HTN
Hypertension
Mild peak/mean 22/13 mmHg and TAM 1.4 cm sq by echo 05/2023
HTN
Psoriatic arthritis
Polymyalgia rheumatica
Hyperlipidemia
Hx interstitial lung disease on chronic oxygen at 2 L continuously
Hypothyroidism
Anxiety
Fibromyalgia
Chronic dyspnea
Hx cervical radiculopathy
Statin intolerance
Hx left rotator cuff tear
Urethral stone w/ hydronephrosis 01/2018
Shingles 09/2022
Syncope 09/2022 in setting of GI illness/dehydration
Chronic pain syndrome on oxycodone daily
Echo 01/06/18:�Mild LVH, EF 50-55% possible lateral hypokinesis, normal RV, severely dilated LA, Mild to moderate MR, Mild aortic stenosis, peak/mean gradient 29/16, aortic valve area 1.6 cm�, Mild TR, pulmonary pressure 51-56 mmHg
Echo October 2018: Ejection fraction 60-65 percent, mild MR, mild , mild-moderate AI�������
Echo 07/2020: EF 60-65%, mild with MPG 14 mm Hg, TAM 1.7 cm2.
Echo 03/04/23:�EF 55-60% with mild MR, mild , aortic root 4 cm, trace pericardial effusion
Echo 06/04/23: EF 55 to 60%, mild concentric LVH, mild mitral stenosis with mean transmitral gradient 6 mmHg, moderate MR, mild peak/mean gradient 22/13 mmHg and TAM 1.4 cm sq, trace TR with pulmonary artery systolic pressure 26 mmHg mildly
dilated aortic root
Echo 08/28/23: EF 40-45%, pleural effusion, not assessed
JIAN 09/08/23: EF 40-45%, mod to sev MR, evidence of
TTE 09/26/23: EF 30-35%, mod MR, mild AI, aortic sclerosis no stenosis, PASP 45 mmHg
Plan:
-Clinically improved. Weight down 15 lbs from peak, currently 156 lbs. Now on Lasix 80 mg p.o. twice daily. Nephrology following.
-Milrinone gtt ran from 09/30/23 until 10/03/23. RHC on 09/30/23 showed PCWP 27 and CI 1.4.
-Cre stable at 2.4 which appears to be new baseline
-EF down to 30-35% by echo 09/26/23.
-This admission her previous Toprol XL was changed to Coreg 25mg BID. Patient is also new to hydralazine 25mg TID, and Imdur 30mg daily on 10/02/23. No MARIANO/ARB/aldosterone antagonist due to CAMRON on CKD.
-Per nephrology could eventually try RASi, SGLT2i if Cr stable. Can be done as outpt. For now continue on Coreg, hydralazine, isosorbide for heart failure.
-LAD PCI 09/04/23 during last admission. Cont Plavix 75 mg daily. Would repeat echo in 40 days following intervention (mid to late October).
-Right radial pseudoaneurysm noted. Seen by vascular surgery but patient was unable to lay flat for attempted repair 09/24/23. Patient is not interested in another attempt and plan is for observation with ongoing limb restrictions.
-Remains in Afib/flutter, as noted above. HRs improved with higher dose Coreg started 10/03/23. Also on amiodarone 200 mg daily after completing 5+ gram load last admission.
-Eliquis 2.5 mg BID continued after brief interruption for attempt at radial artery repair. Patient with minor episodes of epistaxis that are self-limited. Hgb stable, 10.3.
-Left-sided pleural effusion status post thoracentesis 09/29/2023
HPI: Patient was admitted 08/27/23 until 09/11/23 with weight loss and dysphagia and also new Afib/flutter. During that admission she had GI work-up that revealed presbyesophagus. She also had an abnormal stress test that led to cath with LAD PCI.
After cath patient had JIAN/CV with pentecostalism of SR. She was discharged to home 09/11/23 following amiodarone load. She returned to 09/19/23 with CHF. Patient was diuresed with Lasix 40 mg IV daily. Cre was 2.9 on admission and peaked at 3.0. Cre
seemed to improve with IV diuresis and was 1.8 on 09/24/23. Patient was seen by vascular surgery for right wrist pain. Patient had cath via right radial approach and radial u/s 09/05/23 did not show radial aneurysm. Patient was given option of SNF vs
VN at last d/c and opted for home with VN. She does not have [employer] because the of hidden fees during the signup process. Upon return to [facility] her right wrist was increasingly swollen and painful so repeat right radial u/s performed and she now has a
right radial artery pseudoaneurysm. Patient presented to OR for repair using regional block and Versed and patient had orthopnea and hypoxia on the table and procedure cancelled. Patient is high risk for general anesthesia.
Progress Note - Radiation Therapy Technician
Subjective
Date of Service: October 06, 2023
Patient seen and examined. Patient sitting up in chair. Patient reports that she is feeling well without significant shortness of breath or chest pain. She does note fatigue and weakness due to prolonged admission. She is eager to go to rehab.
Objective
Labs:
10/06/23 02:51
10/06/23 02:51
Labs
Hgb 10.3 g/dL (12.0-16.0) L 10/06/23 02:51
Hct 30.7 % (37.0-47.0) L 10/06/23 02:51
Plt Count 167 10^3/uL (130-400) 10/06/23 02:51
Sodium 136 mmol/L (135-145) 10/06/23 02:51
Potassium 3.7 mmol/L (3.5-5.1) 10/06/23 02:51
BUN 56 mg/dl (7-17) H 10/06/23 02:51
Creatinine 2.4 mg/dL (0.6-1.0) H 10/06/23 02:51
Glucose 125 mg/dl (70-99) H 10/06/23 02:51
Vital Signs and I&O:
Vital Signs
Temp Pulse Resp BP Pulse Ox
97.8 F 115 18 107/88 96
10/06/23 11:20 10/06/23 09:00 10/06/23 11:20 10/06/23 08:48 10/06/23 11:20
Vital Signs
Temp Pulse Resp BP Pulse Ox
97.8 F 115 18 107/88 96
10/06/23 11:20 10/06/23 09:00 10/06/23 11:20 10/06/23 08:48 10/06/23 11:20
Intake & Output
10/04/23 10/05/23 10/06/23 10/07/23
06:59 06:59 06:59 06:59
Intake Total 240 / 240 300 / 300
Output Total 350 / 350
Balance -110 / -110 300 / 300
Physical Exam
Physical Exam
GEN: No distress, awake, Ox3
HEENT: supple, anicteric, mmm
LUNGS: Absent breath sounds left base to approximately one third up, CTA on right, no wheezes/rales
CV: Irregularly irregular, S1/S2, 1/6 syst murmur
ABD: soft, BS+, NT/ND
EXT: +1 edema bilaterally, right wrist pseudoaneurysm
NEURO: Gross non-focal
SKIN: No rash, warm, dry, pink with areas of ecchymosis on extremities
--- NOTE | 2023-10-06 13:27 | W.PN.UPDATE ---
Update Note
Progress Note Update
Allergies: Plaquenil, penicillin
Home meds: Amiodarone 100 mg alternating with 200 mg, atorvastatin 40 mg a day, carvedilol 25 mg twice daily, clopidogrel 75 mg a day, Eliquis 2.5 twice daily, Zetia 10 mg a day, furosemide 80 p.o. twice daily, hydralazine 25 p.o. 3 times daily,
isosorbide mononitrate 30 mg a day levothyroxine 75 mcg daily, pantoprazole 40 mg a day, potassium 20 mill equivalents a day, prednisone 5 mg nightly, Simponi, venlafaxine
Current meds: Atorvastatin 40 mg a day, ezetimibe 10 mg a day, Synthroid 75 mcg daily, amiodarone 200 mg a day, pantoprazole, prednisone 5 mg a day, venlafaxine, clopidogrel 75 mg a day, apixaban 2.5 mg twice daily, famotidine 20 mg every 48 hours,
hydralazine 25 3 times daily, isosorbide 30 mg daily, carvedilol 25 mg twice daily, furosemide 80 mg twice daily
PMH/PSH/SH/FH: Reviewed
Review of systems negative except as above
122/85, pulse 97, respirate 18, weight is 71 kg, down 1.1 kg
Hemoglobin 10.3, potassium 3.7, BUN/creatinine 56 and 2.4, creatinine had been 2.5 overall stable
--- NOTE | 2023-10-06 14:11 | PTCARENOTE ---
attempted x 2 to call Horacio Andrade to give report. [phone]. patients midline taken out by vascular access team. patient is dressed in street clothes. ambulance will pick patient up at 1430.
--- NOTE | 2023-10-06 14:42 | PTCARENOTE ---
acute wheel chair ambulance came to merchandise pickup/receiving associate patient to take her to [facility]. attempted to call again report [phone], still no answer. personal belongings packed and sent with patient. D/C to [facility] via ambulance, all papers/chart given to
sales route driver helper to give to [facility].
--- NOTE | 2023-10-06 15:29 | W.HF.CON ---
Heart Failure
- LV Function
Left ventricular function study result: LV Ejection fraction </= 35%
Ejection Fraction Percentage: 30-35
- ARNI
Patient already on ARNI: No
Heart Failure ARNI Contraindication: Acute Renal Failure
- ACEI/ARB
Patient already on ACEI/ARB: No
Heart Failure ACEI/ARB Contraindication: Acute Renal Failure
- Beta Vanessa
Patient already on Evidence Based Beta Vanessa: Yes
- Mineralocorticord Receptor Antagonist
Patient already on MRA: No
Heart Failure MRA Contraindication: Acute Renal Insufficiency
- SGLT-2 Inhibitor
Patient already on SGLT-2 Inhibitor: No
Heart Failure SGLT-2 Inhibitor Contraindication: eGFR < 25
- Afib Anticoagulation
Patient already on Anticoagulation for Afib: Yes
- NYHA CHF Classification
NYHA CHF Classification Level: Class III - Symptoms w/ min exertion, interferes w/ nml daily activity
- ACC/AHA Stage
ACC/AHA Stage: Stage C: Symptomatic Heart Failure
== END 2023-10-06 14:45 | DRG 280 ==
LOC: IVU 20:54
PROVIDERS: Hospitalist; Internal Medicine; Internal Medicine Cardiovascular Disease; Physician Assistant Medical; Radiology Diagnostic Radiology; Specialist; ADMITTING PHYSICIAN Internal Medicine; ATTENDING PHYSICIAN Internal Medicine; CONSULT PHYSICIAN Internal Medicine Cardiovascular Disease; CONSULT PHYSICIAN Internal Medicine Critical Care Medicine; CONSULT PHYSICIAN Specialist; CONSULT PHYSICIAN Surgery Vascular Surgery; EMERGENCY PHYSICIAN Emergency Medicine; FAMILY PHYSICIAN Family Medicine
PROC: 5A0935A Assistance with Respiratory Ventilation, Less than 24 Consecutive Hours, High Flow/Velocity Cannula (ICD-10-PCS; 2023-09-24)
PROC: 0W9B3ZZ Drainage of Left Pleural Cavity, Percutaneous Approach (ICD-10-PCS; 2023-09-29)
PROC: 4A023N6 Measurement of Cardiac Sampling and Pressure, Right Heart, Percutaneous Approach (ICD-10-PCS; 2023-09-30)
DX: I13.0 Hypertensive heart and chronic kidney disease with heart failure and stage 1 through stage 4 chronic kidney disease, or unspecified chronic kidney disease (principal); I50.33 Acute on chronic diastolic (congestive) heart failure; I21.4 Non-ST elevation (NSTEMI) myocardial infarction; J96.21 Acute and chronic respiratory failure with hypoxia; J18.9 Pneumonia, unspecified organism; J96.01 Acute respiratory failure with hypoxia; N17.9 Acute kidney failure, unspecified; T81.718A Complication of other artery following a procedure, not elsewhere classified, initial encounter; I72.1 Aneurysm of artery of upper extremity; I5A Non-ischemic myocardial injury (non-traumatic); E03.9 Hypothyroidism, unspecified; E78.00 Pure hypercholesterolemia, unspecified; I25.10 Atherosclerotic heart disease of native coronary artery without angina pectoris; K44.9 Diaphragmatic hernia without obstruction or gangrene; M35.3 Polymyalgia rheumatica; M48.00 Spinal stenosis, site unspecified; M79.7 Fibromyalgia; L40.50 Arthropathic psoriasis, unspecified; I27.20 Pulmonary hypertension, unspecified; N18.32 Chronic kidney disease, stage 3b; F41.9 Anxiety disorder, unspecified; I48.91 Unspecified atrial fibrillation; K76.0 Fatty (change of) liver, not elsewhere classified; R63.4 Abnormal weight loss; G89.4 Chronic pain syndrome; K21.9 Gastro-esophageal reflux disease without esophagitis; I25.5 Ischemic cardiomyopathy; M54.12 Radiculopathy, cervical region; R11.2 Nausea with vomiting, unspecified; Y84.0 Cardiac catheterization as the cause of abnormal reaction of the patient, or of later complication, without mention of misadventure at the time of the procedure; Y92.9 Unspecified place or not applicable; Y71.0 Diagnostic and monitoring cardiovascular devices associated with adverse incidents; G47.33 Obstructive sleep apnea (adult) (pediatric); M81.0 Age-related osteoporosis without current pathological fracture; I35.0 Nonrheumatic aortic (valve) stenosis; E87.6 Hypokalemia; K22.89 Other specified disease of esophagus; Z53.29 Procedure and treatment not carried out because of patient's decision for other reasons; Z96.653 Presence of artificial knee joint, bilateral; Z66 Do not resuscitate; Z87.891 Personal history of nicotine dependence; Z88.0 Allergy status to penicillin; Z88.8 Allergy status to other drugs, medicaments and biological substances; Z79.52 Long term (current) use of systemic steroids; Z79.01 Long term (current) use of anticoagulants; Z79.02 Long term (current) use of antithrombotics/antiplatelets; Z79.890 Hormone replacement therapy; Z14.1 Cystic fibrosis carrier; Z95.5 Presence of coronary angioplasty implant and graft; Z99.81 Dependence on supplemental oxygen; Z79.891 Long term (current) use of opiate analgesic; Z87.442 Personal history of urinary calculi; Z86.61 Personal history of infections of the central nervous system; Z87.11 Personal history of peptic ulcer disease; Z82.49 Family history of ischemic heart disease and other diseases of the circulatory system; Z80.1 Family history of malignant neoplasm of trachea, bronchus and lung
CPT/HCPCS: 88305; 93308; 32555; 71045; 71046; 71250; 74018; 76604; 76882; 80048; 80053; 81003; 81015; 82150; 82945; 83605; 83615; 83735; 83880; 83986; 84145; 84155; 84157; 84443; 84484; 85025; 85027; 86850; 86900; 86901; 87015; 87070; 87086; 87205; 88112; 88341; 88342; 89051; 93005; 93321; 93325; 93451; 94760; 97116; 97163; 97167; 97530; 97535; 99285; C1894; J2260

== ENCOUNTER → 2023-10-08 10:09 | Outpatient (REF) | payer OTHER, MEDICARE, BC, SELFPAY ==
[2023-10-08 10:46] LABS: Hematocrit 30.9 % (37.0-47.0); Hemoglobin 9.9 g/dL (12.0-16.0); Mean Corpuscular Hgb 30.2 pg (27.0-31.0); Mean Corpuscular Volume 94.2 fL (81.0-99.0); Mean Platelet Volume 10.5 fL (7.4-10.4); Platelet Count 171 10^3/uL (130-400); Red Blood Cell Count 3.28 10^6/uL (4.20-5.40); White Blood Cell Count 6.8 10^3/uL (4.8-10.8)
[2023-10-08 11:46] LABS: Blood Urea Nitrogen 44 mg/dl (7-17); Calcium 8.3 mg/dl (8.4-10.2); Carbon Dioxide 33 mmol/L (22-30); Chloride 98 mmol/L (98-107); Glucose 96 mg/dl (70-99); Potassium 3.3 mmol/L (3.5-5.1); Sodium 137 mmol/L (135-145); eGFR 20.07
== END ==
LOC: OLABP 10:09
PROVIDERS: ATTENDING PHYSICIAN Family Medicine
DX: I50.33 Acute on chronic diastolic (congestive) heart failure (principal); M62.59 Muscle wasting and atrophy, not elsewhere classified, multiple sites; M79.7 Fibromyalgia; M35.3 Polymyalgia rheumatica; M48.00 Spinal stenosis, site unspecified; J18.9 Pneumonia, unspecified organism
CPT/HCPCS: 36415; 80048; 85027

== ENCOUNTER → 2023-10-10 10:32 | Outpatient (REF) | payer MEDICARE, BC, SELFPAY ==
[2023-10-10 11:22] LABS: % Basophils 0.3 % (0-2); % Eosinophils 0.8 % (0-6); % Immature Granulocytes 0.7 % (0-0.5); % Monocytes 6.9 % (1.7-9.3); % Neutrophils 78.3 % (42.2-75.2); Absolute Eosinophils 0.1 10^3/uL (0-0.7); Absolute Immature Granulocytes 0.1 10^3/uL (0-0.05); Absolute Lymphocytes 0.9 10^3/uL (1.2-3.4); Absolute Monocytes 0.5 10^3/uL (0.1-0.6); Absolute Neutrophils 5.7 10^3/uL (1.4-6.5); Hematocrit 31.1 % (37.0-47.0); Hemoglobin 10.2 g/dL (12.0-16.0); Mean Corp Hgb Conc. 32.8 g/dL (33.0-37.0); Mean Corpuscular Hgb 30.4 pg (27.0-31.0); Mean Corpuscular Volume 92.6 fL (81.0-99.0); Mean Platelet Volume 10.7 fL (7.4-10.4); Nucleated Red Blood Cells % 0 %; Platelet Count 205 10^3/uL (130-400); Red Blood Cell Count 3.36 10^6/uL (4.20-5.40); Red Cell Dist. Width 15.5 % (11.5-14.5); White Blood Cell Count 7.2 10^3/uL (4.8-10.8)
[2023-10-10 11:37] LABS: ALT (SGPT) 36 U/L (0-35); AST (SGOT) 53 U/L (14-36); Albumin 2.8 g/dl (3.5-5.0); Alkaline Phosphatase 66 U/L (38-126); Blood Urea Nitrogen 42 mg/dl (7-17); Calcium 8.7 mg/dl (8.4-10.2); Carbon Dioxide 33 mmol/L (22-30); Chloride 99 mmol/L (98-107); Glucose 103 mg/dl (70-99); Magnesium 1.9 mg/dl (1.6-2.3); Sodium 136 mmol/L (135-145); Total Bilirubin 0.9 mg/dl (0.2-1.3); Total Protein 5.4 g/dl (6.3-8.2); eGFR 22.38
== END ==
LOC: OLABP 10:32
PROVIDERS: ATTENDING PHYSICIAN Family Medicine
DX: I50.33 Acute on chronic diastolic (congestive) heart failure (principal); J96.21 Acute and chronic respiratory failure with hypoxia; N17.9 Acute kidney failure, unspecified; J18.9 Pneumonia, unspecified organism; J90 Pleural effusion, not elsewhere classified; I48.3 Typical atrial flutter; I5A Non-ischemic myocardial injury (non-traumatic); I72.8 Aneurysm of other specified arteries; M62.59 Muscle wasting and atrophy, not elsewhere classified, multiple sites; M79.7 Fibromyalgia; M35.3 Polymyalgia rheumatica; M48.00 Spinal stenosis, site unspecified
CPT/HCPCS: 36415; 80053; 83735; 85025

== ENCOUNTER → 2023-10-13 15:56 | Outpatient (REF) | payer MEDICARE, BC, SELFPAY ==
[2023-10-13 16:28] LABS: % Basophils 0.5 % (0-2); % Immature Granulocytes 0.5 % (0-0.5); % Lymphocytes 17.2 % (20.5-51.1); % Monocytes 7.2 % (1.7-9.3); % Neutrophils 73.6 % (42.2-75.2); Absolute Eosinophils 0.1 10^3/uL (0-0.7); Absolute Monocytes 0.4 10^3/uL (0.1-0.6); Absolute Neutrophils 4.3 10^3/uL (1.4-6.5); Hematocrit 34.4 % (37.0-47.0); Hemoglobin 10.6 g/dL (12.0-16.0); Mean Corp Hgb Conc. 30.8 g/dL (33.0-37.0); Mean Corpuscular Hgb 29.7 pg (27.0-31.0); Mean Corpuscular Volume 96.4 fL (81.0-99.0); Mean Platelet Volume 10.7 fL (7.4-10.4); Nucleated Red Blood Cells % 0 %; Platelet Count 201 10^3/uL (130-400); Red Blood Cell Count 3.57 10^6/uL (4.20-5.40); Red Cell Dist. Width 16.2 % (11.5-14.5); White Blood Cell Count 5.8 10^3/uL (4.8-10.8)
[2023-10-13 16:37] LABS: Blood Urea Nitrogen 37 mg/dl (7-17); Calcium 8.7 mg/dl (8.4-10.2); Carbon Dioxide 29 mmol/L (22-30); Chloride 105 mmol/L (98-107); Digoxin 0.5 ng/ml (0.8-2.0); Glucose 106 mg/dl (70-99); Potassium 4.1 mmol/L (3.5-5.1); Sodium 137 mmol/L (135-145); eGFR 20.07
== END ==
LOC: OLABP 15:56
PROVIDERS: ATTENDING PHYSICIAN Family Medicine
DX: M62.59 Muscle wasting and atrophy, not elsewhere classified, multiple sites (principal); M48.00 Spinal stenosis, site unspecified; M35.3 Polymyalgia rheumatica; M79.7 Fibromyalgia; I50.33 Acute on chronic diastolic (congestive) heart failure; J96.21 Acute and chronic respiratory failure with hypoxia; N17.9 Acute kidney failure, unspecified; J18.9 Pneumonia, unspecified organism; J90 Pleural effusion, not elsewhere classified; I48.3 Typical atrial flutter; I5A Non-ischemic myocardial injury (non-traumatic); I72.8 Aneurysm of other specified arteries; N18.30 Chronic kidney disease, stage 3 unspecified; I25.10 Atherosclerotic heart disease of native coronary artery without angina pectoris; I48.91 Unspecified atrial fibrillation
CPT/HCPCS: 36415; 80048; 80162; 83735; 85025

== ENCOUNTER → 2023-10-16 09:16 | Outpatient (REF) | payer MEDICARE, BC, SELFPAY ==
[2023-10-16 09:36] LABS: Hematocrit 31.9 % (37.0-47.0); Hemoglobin 10.4 g/dL (12.0-16.0); Mean Corp Hgb Conc. 32.6 g/dL (33.0-37.0); Mean Corpuscular Hgb 30.1 pg (27.0-31.0); Mean Corpuscular Volume 92.2 fL (81.0-99.0); Mean Platelet Volume 10.5 fL (7.4-10.4); Platelet Count 163 10^3/uL (130-400); Red Blood Cell Count 3.46 10^6/uL (4.20-5.40); Red Cell Dist. Width 16.4 % (11.5-14.5); White Blood Cell Count 6.3 10^3/uL (4.8-10.8)
[2023-10-16 10:25] LABS: Blood Urea Nitrogen 34 mg/dl (7-17); Calcium 8.2 mg/dl (8.4-10.2); Carbon Dioxide 31 mmol/L (22-30); Chloride 98 mmol/L (98-107); Glucose 81 mg/dl (70-99); Potassium 3.6 mmol/L (3.5-5.1); Sodium 135 mmol/L (135-145); eGFR 23.73
== END ==
LOC: OLABP 09:16
PROVIDERS: ATTENDING PHYSICIAN Family Medicine
DX: I50.33 Acute on chronic diastolic (congestive) heart failure (principal); J96.21 Acute and chronic respiratory failure with hypoxia; M17.9 Osteoarthritis of knee, unspecified; J18.9 Pneumonia, unspecified organism; J90 Pleural effusion, not elsewhere classified; I48.3 Typical atrial flutter; I72.8 Aneurysm of other specified arteries; N18.30 Chronic kidney disease, stage 3 unspecified
CPT/HCPCS: 36415; 80048; 85027

== ENCOUNTER → 2023-10-17 09:25 | Outpatient (REF) | payer MEDICARE, BC, SELFPAY ==
[2023-10-17 11:25] LABS: Calcium 7.6 mg/dl (8.4-10.2); Glucose 63 mg/dl (70-99); Sodium 131 mmol/L (135-145); eGFR 25.24
[2023-10-17 11:35] LABS: Blood Urea Nitrogen 31 mg/dl (7-17); Carbon Dioxide 29 mmol/L (22-30); Chloride 94 mmol/L (98-107); Potassium 3.1 mmol/L (3.5-5.1)
== END ==
LOC: OLABP 09:25
PROVIDERS: ATTENDING PHYSICIAN Family Medicine
DX: I48.91 Unspecified atrial fibrillation (principal); M62.59 Muscle wasting and atrophy, not elsewhere classified, multiple sites; M79.10 Myalgia, unspecified site; M35.3 Polymyalgia rheumatica; M48.00 Spinal stenosis, site unspecified; I50.33 Acute on chronic diastolic (congestive) heart failure; J96.21 Acute and chronic respiratory failure with hypoxia; J18.9 Pneumonia, unspecified organism; J90 Pleural effusion, not elsewhere classified; I48.3 Typical atrial flutter; I72.8 Aneurysm of other specified arteries; N18.30 Chronic kidney disease, stage 3 unspecified; I25.10 Atherosclerotic heart disease of native coronary artery without angina pectoris
CPT/HCPCS: 36415; 80048

== ENCOUNTER → 2023-10-20 09:19 | Outpatient (REF) | payer MEDICARE, BC, SELFPAY ==
[2023-10-20 09:43] LABS: % Basophils 0.3 % (0-2); % Immature Granulocytes 0.3 % (0-0.5); % Lymphocytes 21.6 % (20.5-51.1); % Monocytes 7.8 % (1.7-9.3); Absolute Lymphocytes 0.8 10^3/uL (1.2-3.4); Absolute Monocytes 0.3 10^3/uL (0.1-0.6); Absolute Neutrophils 2.7 10^3/uL (1.4-6.5); Hematocrit 28.6 % (37.0-47.0); Hemoglobin 9.3 g/dL (12.0-16.0); Mean Corp Hgb Conc. 32.5 g/dL (33.0-37.0); Mean Corpuscular Hgb 29.8 pg (27.0-31.0); Mean Corpuscular Volume 91.7 fL (81.0-99.0); Mean Platelet Volume 10.7 fL (7.4-10.4); Nucleated Red Blood Cells % 0 %; Platelet Count 124 10^3/uL (130-400); Red Blood Cell Count 3.12 10^6/uL (4.20-5.40); Red Cell Dist. Width 16.3 % (11.5-14.5); White Blood Cell Count 3.8 10^3/uL (4.8-10.8)
[2023-10-20 09:56] LABS: ALT (SGPT) 31 U/L (0-35); AST (SGOT) 46 U/L (14-36); Albumin 2.6 g/dl (3.5-5.0); Alkaline Phosphatase 64 U/L (38-126); Blood Urea Nitrogen 33 mg/dl (7-17); Carbon Dioxide 30 mmol/L (22-30); Chloride 104 mmol/L (98-107); Glucose 113 mg/dl (70-99); Potassium 4.3 mmol/L (3.5-5.1); Sodium 135 mmol/L (135-145); Total Bilirubin 0.5 mg/dl (0.2-1.3); Total Protein 5.2 g/dl (6.3-8.2); eGFR 20.07
== END ==
LOC: OLABP 09:19
PROVIDERS: ATTENDING PHYSICIAN Family Medicine
DX: M62.59 Muscle wasting and atrophy, not elsewhere classified, multiple sites (principal); M79.7 Fibromyalgia; M35.3 Polymyalgia rheumatica; M48.00 Spinal stenosis, site unspecified; I50.33 Acute on chronic diastolic (congestive) heart failure; J96.21 Acute and chronic respiratory failure with hypoxia; J18.9 Pneumonia, unspecified organism; J90 Pleural effusion, not elsewhere classified
CPT/HCPCS: 36415; 80053; 80162; 83735; 85025

== ENCOUNTER → 2023-10-22 11:05 | Outpatient (REF) | payer MEDICARE, BC, SELFPAY ==
[2023-10-22 13:00] LABS: % Basophils 0.2 % (0-2); % Eosinophils 1.1 % (0-6); % Immature Granulocytes 1.1 % (0-0.5); % Lymphocytes 16.5 % (20.5-51.1); % Monocytes 6.3 % (1.7-9.3); % Neutrophils 74.8 % (42.2-75.2); Absolute Eosinophils 0.1 10^3/uL (0-0.7); Absolute Immature Granulocytes 0.1 10^3/uL (0-0.05); Absolute Lymphocytes 0.9 10^3/uL (1.2-3.4); Absolute Monocytes 0.3 10^3/uL (0.1-0.6); Absolute Neutrophils 3.9 10^3/uL (1.4-6.5); Hematocrit 29.7 % (37.0-47.0); Hemoglobin 9.5 g/dL (12.0-16.0); Mean Corpuscular Hgb 30.1 pg (27.0-31.0); Mean Platelet Volume 11.1 fL (7.4-10.4); Nucleated Red Blood Cells % 0 %; Platelet Count 143 10^3/uL (130-400); Red Blood Cell Count 3.16 10^6/uL (4.20-5.40); Red Cell Dist. Width 16.3 % (11.5-14.5); White Blood Cell Count 5.2 10^3/uL (4.8-10.8)
[2023-10-22 13:48] LABS: Blood Urea Nitrogen 34 mg/dl (7-17); Calcium 8.5 mg/dl (8.4-10.2); Carbon Dioxide 26 mmol/L (22-30); Chloride 102 mmol/L (98-107); Glucose 122 mg/dl (70-99); Magnesium 2.1 mg/dl (1.6-2.3); Sodium 138 mmol/L (135-145); eGFR 21.17
[2023-10-22 13:54] LABS: Potassium 4.2 mmol/L (3.5-5.1)
== END ==
LOC: OLABP 11:05
PROVIDERS: ATTENDING PHYSICIAN Family Medicine
DX: M62.59 Muscle wasting and atrophy, not elsewhere classified, multiple sites (principal); I50.33 Acute on chronic diastolic (congestive) heart failure; J96.21 Acute and chronic respiratory failure with hypoxia; N17.9 Acute kidney failure, unspecified; J18.9 Pneumonia, unspecified organism; J90 Pleural effusion, not elsewhere classified; I48.3 Typical atrial flutter; I72.8 Aneurysm of other specified arteries; N18.30 Chronic kidney disease, stage 3 unspecified
CPT/HCPCS: 36415; 80048; 80162; 83735; 85025

== ENCOUNTER 2023-11-13 12:03 | Inpatient (IN) | payer MEDICARE, BC, SELFPAY ==
[2023-11-13] VITALS (20 sets, daily range): BP systolic 98–141; BP diastolic 37–88; BMI 29.6
[2023-11-13 09:05] LABS: Hematocrit 30.7 % (37.0-47.0); Hemoglobin 9.8 g/dL (12.0-16.0); Mean Corp Hgb Conc. 31.9 g/dL (33.0-37.0); Mean Corpuscular Volume 93.9 fL (81.0-99.0); Mean Platelet Volume 9.7 fL (7.4-10.4); Platelet Count 162 10^3/uL (130-400); Red Blood Cell Count 3.27 10^6/uL (4.20-5.40); Red Cell Dist. Width 18.4 % (11.5-14.5); White Blood Cell Count 5.7 10^3/uL (4.8-10.8)
[2023-11-13 09:14] LABS: INR 1.36; PT 16.9 Sec (11.4-14.6)
[2023-11-13 09:15] LABS: APTT 32.6 Sec (23.4-35.0)
[2023-11-13 09:19] LABS: Blood Urea Nitrogen 33 mg/dl (7-17); Calcium 8.4 mg/dl (8.4-10.2); Carbon Dioxide 33 mmol/L (22-30); Chloride 103 mmol/L (98-107); Estimated Creatinine Clearance 15 ml/min; Glucose 106 mg/dl (70-99); Potassium 4.2 mmol/L (3.5-5.1); Sodium 139 mmol/L (135-145); eGFR 20.07
[2023-11-13] MEDS: PERIDEX 0.12% ORAL RINSE 15 ML PO (09:23)
[2023-11-13] MEDS: VANCOCIN 200 IV (09:33)
[2023-11-13] MEDS: BACTROBAN NASAL 1 GRAM NASAL (09:33)
--- NOTE | 2023-11-13 09:41 | PTCARENOTE ---
Multiple bruising all over body and 2 skin tears left arm. Left arm wrapped.
--- NOTE | 2023-11-13 11:30 | OR.RPT ---
Operative Report
Operative Report
PROCEDURE DATE: 11/13/2023
Preoperative diagnosis: Right radial artery enlarging pseudoaneurysm (status post transradial cardiac catheterization).
Postoperative diagnosis: Same
Procedure: Primary repair of right radial artery pseudoaneurysm.
Surgeon: Edd
Sales Teacher: Cristiana Doll TECHNICAL SOLUTIONS ENGINEER required for all aspects of procedure including assistance with traction/countertraction, following of suture, assistance with closure.
Complications: None
Anesthesia: General, LMA
Indications for procedure:
88-year-old female who had undergone right radial access for cardiac catheterization. Developed a right radial artery pseudoaneurysm. I initially recommended repair and had attempted to repair, but after nerve block was placed and patient received
slight sedation, she had active significant CHF and became severely dyspneic/orthopneic. Had to cancel procedure at the time. Now she was optimized. She followed up in the office and the pseudoaneurysm had significantly enlarged. Therefore due
to concern for expansion and rupture, we recommended repair. Risk/benefits/alternatives all fully discussed. Patient understood all wish to proceed.
Description of procedure:
Patient was identified brought to the operating room placed on the table in supine position. After the adequate administration of anesthesia she was prepped and draped in the standard surgical fashion. A standard preoperative timeout was
undertaken and everybody was in agreement the plan. A longitudinal incision was made in the right radial aspect of the wrist overlying the pseudoaneurysm but extending proximally distally. This was carried through skin subcutaneous tissue with
electrocautery. In the proximal and distal aspects of the field (proximal and distally to the pseudoaneurysm), I was able to dissect through the fascial layer and identified the radial artery. I passed Vesseloops around it proximally distally.
These were double looped but not yet tightened. I then began to shell out/dissect out the pseudoaneurysm capsule from the surrounding tissues. In doing so there was 1 small rent that began to bleed and therefore I tightened my Vesseloops
proximally and distally. I give the patient 3000 units of intravenous heparin. Now I quickly was able to excise out the entirety of the pseudoaneurysm skeletonizing the radial artery leading up to that. This was a bulbous pseudoaneurysm that
essentially laid directly on the radial artery (no significant neck of the pseudoaneurysm). The capsule of the pseudoaneurysm was debrided out and sent for pathology. The small rent in the radial artery was primarily repaired with [id number]
6-0 and 7-0 Prolene suture. Vesseloops were released now. Good pulsatile flow was noted in the radial artery. Doppler confirmed good signal proximal and distal to the repair site. Diffuse generalized oozing was noted throughout the subcutaneous
tissues. Meticulous hemostasis was achieved. We gave a little bit of protamine to reverse the heparin, but avoided too much given patient's age and risk for hypotension. We then achieved and confirmed full hemostasis. I then closed in layers
using 3-0 Vicryl followed by 4-0 Monocryl subcuticular stitch. Dermabond was applied. Patient tolerated the procedure well.
[2023-11-13] MEDS: DILAUDID 0.25 MG IV (12:07)
--- NOTE | 2023-11-13 14:00 | PTCARENOTE ---
Received pt from PACU with RN at bedside, VSS, neurovascular check WNL, pt resting comfortably in bed with family at bedside.
[2023-11-13 14:39] LABS: Hematocrit 27.7 % (37.0-47.0); Mean Corp Hgb Conc. 32.5 g/dL (33.0-37.0); Mean Corpuscular Hgb 30.3 pg (27.0-31.0); Mean Corpuscular Volume 93.3 fL (81.0-99.0); Platelet Count 133 10^3/uL (130-400); Red Blood Cell Count 2.97 10^6/uL (4.20-5.40); Red Cell Dist. Width 18.6 % (11.5-14.5); White Blood Cell Count 6.5 10^3/uL (4.8-10.8)
[2023-11-13 15:19] LABS: Blood Urea Nitrogen 32 mg/dl (7-17); Calcium 8.1 mg/dl (8.4-10.2); Carbon Dioxide 34 mmol/L (22-30); Chloride 104 mmol/L (98-107); Estimated Creatinine Clearance 17 ml/min; Glucose 76 mg/dl (70-99); Potassium 3.5 mmol/L (3.5-5.1); Sodium 138 mmol/L (135-145); eGFR 22.38
[2023-11-13] MEDS: ROXICODONE 5 MG PO (16:39)
[2023-11-13] MEDS: PACERONE 100 MG PO (17:38)
[2023-11-13] MEDS: VITAMIN D3 (cholecalciferol) 25 MCG PO (17:38)
[2023-11-13] MEDS: ZETIA 10 MG PO (17:39)
[2023-11-13] MEDS: LIPITOR 40 MG PO (17:39)
[2023-11-13] MEDS: THERAGRAN 1 TABLET PO (17:39)
[2023-11-13] MEDS: DELTASONE 5 MG PO (17:40)
[2023-11-13] MEDS: LASIX 60 MG PO (17:42)
[2023-11-13] MEDS: HEPARIN 5000 UNITS SC (20:29)
[2023-11-13] MEDS: COREG 12.5 MG PO (20:29)
[2023-11-14 03:18] VITALS: BP 119/46
[2023-11-14 05:38] LABS: Hematocrit 28.7 % (37.0-47.0); Hemoglobin 9.2 g/dL (12.0-16.0); Mean Corp Hgb Conc. 32.1 g/dL (33.0-37.0); Mean Corpuscular Hgb 30.1 pg (27.0-31.0); Mean Corpuscular Volume 93.8 fL (81.0-99.0); Mean Platelet Volume 10.5 fL (7.4-10.4); Platelet Count 143 10^3/uL (130-400); Red Blood Cell Count 3.06 10^6/uL (4.20-5.40); Red Cell Dist. Width 18.6 % (11.5-14.5); White Blood Cell Count 7.1 10^3/uL (4.8-10.8)
[2023-11-14] MEDS: SYNTHROID 75 MCG PO (05:53)
[2023-11-14 06:00] VITALS: BMI 28.8
[2023-11-14 06:07] LABS: Blood Urea Nitrogen 31 mg/dl (7-17); Carbon Dioxide 35 mmol/L (22-30); Chloride 101 mmol/L (98-107); Estimated Creatinine Clearance 18 ml/min; Glucose 112 mg/dl (70-99); Potassium 3.8 mmol/L (3.5-5.1); Sodium 138 mmol/L (135-145); eGFR 25.24
[2023-11-14 07:50] VITALS: BP 122/48
--- NOTE | 2023-11-14 08:00 | W.PN.VS ---
Addendum entered and electronically signed by Larry Puga MD 11/14/23 08:32:
Seen and examined with GERMAN Doll. Agree with findings as noted below. Patient without significant complaints. Incisional pain well-controlled. No significant pain in the hand. No numbness or weakness in the hand. On exam right upper extremity is
soft. Incision is clean dry and intact. No significant hematoma. Good distal radial pulse palpable 2+. Hand is pink and warm and well-perfused. Motor/sensory fully intact. Plan/as discussed and noted below. Will restart p.o. Eliquis today as
noted below. Recommend continue Marin bandage as tolerated for additional 48 to 72 hours (though I discussed with her it is okay to take it off periodically or as she sees fit).
Original Note:
Today's Communication / Plan
-
Patient seen and examined at bedside with Dr. Larry Puga, below plan reviewed with attending.
Assessment/Plan
-
Assessment: 88 year old female POD#1 Primary repair of right radial artery pseudoaneurysm
Plan:
Restart home PO Eliquis
Discharge today
Follow up in office as scheduled
Subjective Data
-
Date of Service: November 14, 2023
Patient seen and examined at bedside, offers no complaints. Reports well managed post operative pain. Tolerating PO diet.
Objective Data
-
Vital Signs
Temp Pulse Resp BP Pulse Ox
98.4 F 68 19 119/46 96
11/14/23 03:18 11/14/23 03:18 11/14/23 03:18 11/14/23 03:18 11/14/23 04:00
Intake and Output
11/13/23 11/14/23 11/15/23
06:59 06:59 06:59
Intake Total 483 / 483
Balance 483 / 483
Intake:
Oral fluids 463 / 463
IV fluids (Total) 20
NS 20 20
Other:
Number of unmeasured voidings 1
How many times incontinent 1
How many times incontinent 3
MODERATE amount urine
Number of unmeasured liquid
stools
Rectum 1
Lab Results
11/14/23 04:12
11/14/23 04:12
Calcium 8.0 mg/dl (8.4-10.2) L 11/14/23 04:12
Physical Exam
-
AAOx3, NAD
No tachycardia
No dyspnea
ABD rotund
RUE no edema or hematoma, +1 palpable radial pulse, hand warm, sensation and motor intact, moderate ecchymosis
[2023-11-14] MEDS: IMDUR (EXTENDED RELEASE) 30 MG PO (09:35)
[2023-11-14] MEDS: LASIX 60 MG PO (09:35)
[2023-11-14] MEDS: PLAVIX 75 MG PO (09:37)
[2023-11-14] MEDS: EFFEXOR XR 75 MG PO (09:37)
[2023-11-14] MEDS: PACERONE 200 MG PO (09:37)
[2023-11-14] MEDS: COREG 12.5 MG PO (09:37)
[2023-11-14] MEDS: PROTONIX 40 MG PO (09:37)
[2023-11-14] MEDS: PEPCID 20 MG PO (09:38)
[2023-11-14] MEDS: KCL 40 MEQ PO (09:39)
[2023-11-14] MEDS: ELIQUIS 2.5 MG PO (09:39)
--- NOTE | 2023-11-14 10:31 | W.DS.TRANS ---
DC Summary - Email Specialist
-
Discharge Instructions:
Sleep Apnea Risk Low
Discharge Diagnosis/Procedures Repair of right radial artery pseudoaneurysm.
Diet As tolerated
Activity No strenuous activity
Driving Restrictions No driving for 1 week
Bathing Restrictions OK to Shower
Instructions:
Stand-Alone Forms: DC Instr - Vascular OR
Changes to Home Medications: No
Discharge Medications:
DC Medications w/original date entered in [employer]
venlafaxine 75 mg capsule,extended release 24 hr 75 mg PO DAILY Depression 12/09/17
prednisone 5 mg tablet 5 mg PO QPM Anti-Inflammatory 01/05/18
cholecalciferol (vitamin D3) 25 mcg (1,000 unit) tablet 1,000 units PO QPM Supplement 08/11/18
ezetimibe 10 mg tablet 10 mg PO QPM High cholesterol 08/11/18
therapeutic multivitamin 1 tab PO QPM Supplement 06/03/23
levothyroxine 75 mcg tablet 75 mcg PO DAILY AT 0700 30 days #30 tabs 06/06/23
apixaban 2.5 mg tablet (Eliquis) 2.5 mg PO BID Blood clot prevention/tx #60 tabs 09/11/23
atorvastatin 40 mg tablet 40 mg PO QPM High cholesterol #30 tabs 09/11/23
clopidogrel 75 mg tablet 75 mg PO DAILY Heart disease/condition #30 tabs 09/11/23
pantoprazole 40 mg tablet,delayed release 40 mg PO DAILY Gastrointestinal issue #30 tabs 09/11/23
famotidine 20 mg tablet 20 mg PO Q48H #0 tabs 10/06/23
isosorbide mononitrate 30 mg tablet,extended release 24 hr 30 mg PO DAILY 30 days #30 tabs 10/06/23
amiodarone 100 mg tablet 100 mg PO QPM Arrhythmia 11/12/23
amiodarone 200 mg tablet 200 mg PO DAILY Arrhythmia 11/12/23
carvedilol 25 mg tablet 12.5 mg PO BID Blood Pressure 11/12/23
clonidine HCl 0.1 mg tablet 0.1 mg PO PRN PRN SBP > 160 11/12/23
digoxin 62.5 mcg (0.0625 mg) tablet 62.5 mcg PO MOWEFR Heart Failure 11/12/23
furosemide 40 mg tablet 60 mg PO BID Fluid Retention/Swelling 11/12/23
potassium chloride 20 mEq tablet,extended release(part/cryst) 40 meq PO DAILY Electrolyte Repletion 11/12/23
benzonatate 200 mg capsule 200 mg PO TID PRN cough 11/13/23
rmmr-pmhii-te1-ogm-wpw-dznx-sterols 375 mg-100 mg-36 mg-54 mg capsule (Glucosamine Chondroitin PLUS) 1 cap PO BID Supplement 11/13/23
Home Medication Changes
Pending Results: No
--- NOTE | 2023-11-14 10:55 | CM ---
Reviewed the chart notes and spoke with the patient at the bedside. IMM signed and placed on the chart. The patient resides alone in a one story home with one step to enter. The patient is current with VN. The patient has companions through
[facility] M-F from 10:00am-2:00pm. The patient has been to PR in the past. The patient has a cane, rolling walker, rollator, and home O2 through [employer] for at night. The patient confirmed her pharmacy of choice is the [facility] Dmit[facility] May[facility].
The patient is being discharged today to home. The patient's daughter will provide transportation. CM continues to be available to patient/family and is monitoring medical plan for needs at discharge.
Plan: Discharge to home today with [facility] services.
[2023-11-14 11:30] VITALS: BP 104/40
--- NOTE | 2023-11-14 12:15 | VNURNOTE ---
Met with patient at bedside. She is current with VN services and would like to resume services once D/C'ed home. Communicated with vascular [facility] Cristiana for wound care orders. She will add to DC instructions. KEO Referral placed in [facility].
--- NOTE | 2023-11-14 13:33 | W.DCSUMMARY ---
Discharge Summary
Discharge Data
Date of Admission: 11/13/23
Date of Discharge: 11/14/23
-
Pending Results: No
Hospital Course
Attending: Edd
Consultants: None
Allergies: Plaquenil, penicillins
Procedure with date: 11/13/2023: Primary repair of right radial artery pseudoaneurysm
History of present illness: The patient is an 88-year-old female with multiple medical conditions including: Interstitial lung disease, hypothyroidism, fibromyalgia, CAD, osteoporosis, PMR, hypercholesterolemia, psoriatic arthropathy, GERD,
cholecystectomy, knee replacements, cardiac stents. Patient presented on 11/13/2023 for scheduled procedure with Dr. Puga. Patient presented at baseline health with no reports of recent illness or trauma.
Hospital Course: Briefly, the patient underwent scheduled aneurysm repair without complications, and recovered in PACU. Following recovery phase one and two patient was transferred to the floor for continued monitoring. POD #1 (11/14/2023) Patient
doing well overall, wrist site stable and tolerating PO diet. Surgical wrist site clean, dry, and intact with suture line well approximated and soft. No evidence of hematoma, moderate ecchymosis. Patient able to ambulate without difficulty or
incident. Patient stable for discharge to home.
Prescriptions and follow up appointment are included in the DC summary cable tester note. All instructions were given to the patient in both written and verbal form and the patient expressed understanding
Discharge Plan
-
Patient Disposition: Home (Routine Discharge)
Discharge Diagnosis/Procedures: Repair of right radial artery pseudoaneurysm.
Condition: Fair
Diet: As tolerated
Activity: No strenuous activity
Driving Restrictions: No driving for 1 week
Bathing Restrictions: OK to Shower
Wound Care: Recommend continue Marin bandage with mild compression from fingers to antecubital as tolerated for additional 48 to 72 hours (but can take it off periodically or as she sees fit for activities of daily living).
Stand Alone Forms: DC Instr - Vascular OR
Referrals:
Wilbert Figueroa MD [Family Provider] -
Jovita Snyder CRNP [Specified Professional Personl] - 11/28/23 11:15 am (Vascular follow up)
Prescriptions:
Continued
venlafaxine 75 MG capsule,extended release 24hr
75 mg PO DAILY
prednisone 5 MG tablet
5 mg PO QPM
Patient Comments:
cholecalciferol (vitamin D3) 1,000 UNITS tablet
1,000 units PO QPM
ezetimibe 10 MG tablet
10 mg PO QPM
therapeutic multivitamin Tablet
1 tab PO QPM
levothyroxine 75 mcg Tablet
75 mcg PO DAILY AT 0700 30 Days Qty: 30 0RF
pantoprazole 40 mg Tablet,Delayed Release (Dr/Ec)
40 mg PO DAILY Qty: 30 11RF
Eliquis 2.5 mg Tablet
2.5 mg PO BID Qty: 60 11RF
atorvastatin 40 mg Tablet
40 mg PO QPM Qty: 30 11RF
clopidogrel 75 mg Tablet
75 mg PO DAILY Qty: 30 11RF
isosorbide mononitrate 30 mg Tablet Extended Release 24 Hr
30 mg PO DAILY 30 Days Qty: 30 0RF
famotidine 20 mg Tablet
20 mg PO Q48H Qty: 0 0RF
furosemide 40 mg Tablet
60 mg PO BID
potassium chloride 20 mEq tablet,ER particles/crystals
40 meq PO DAILY
digoxin 62.5 mcg (0.0625 mg) tablet
62.5 mcg PO MOWEFR
clonidine HCl 0.1 mg Tablet
0.1 mg PO PRN PRN (Reason: SBP > 160)
amiodarone 200 mg Tablet
200 mg PO DAILY
carvedilol 25 mg tablet
12.5 mg PO BID
amiodarone 100 mg tablet
100 mg PO QPM
Rx Instructions:
can start in 3 weeks after 200mg daily dosing completed
benzonatate 200 mg Capsule
200 mg PO TID PRN (Reason: cough )
Glucosamine Chondroitin PLUS [id number] mg Capsule
1 cap PO BID
Discharge Orders:
Discharge Patient (As Directed); Ordered 11/14/23
Ordered By: Marcella De La Torre
Discharge Date and Time
Discharge Date/Time: 11/14/23 12:58
Print Language: [place] CITIZ[place]
== END 2023-11-14 12:58 | disposition home health service (06) | DRG 253 ==
LOC: 2 NORTH 12:03
PROVIDERS: Nurse Practitioner; ADMITTING PHYSICIAN Surgery Vascular Surgery; FAMILY PHYSICIAN Family Medicine
PROC: 03QB0ZZ Repair Right Radial Artery, Open Approach (ICD-10-PCS; 2023-11-13)
DX: T81.718A Complication of other artery following a procedure, not elsewhere classified, initial encounter (principal); J84.9 Interstitial pulmonary disease, unspecified; I72.1 Aneurysm of artery of upper extremity; Y84.0 Cardiac catheterization as the cause of abnormal reaction of the patient, or of later complication, without mention of misadventure at the time of the procedure; Y92.9 Unspecified place or not applicable; E03.9 Hypothyroidism, unspecified; I25.10 Atherosclerotic heart disease of native coronary artery without angina pectoris; M35.3 Polymyalgia rheumatica; M81.0 Age-related osteoporosis without current pathological fracture; E78.00 Pure hypercholesterolemia, unspecified; L40.50 Arthropathic psoriasis, unspecified; K21.9 Gastro-esophageal reflux disease without esophagitis; Z87.19 Personal history of other diseases of the digestive system; Z79.890 Hormone replacement therapy; Z79.52 Long term (current) use of systemic steroids; Z99.81 Dependence on supplemental oxygen; Z95.5 Presence of coronary angioplasty implant and graft; Z79.02 Long term (current) use of antithrombotics/antiplatelets; Z79.01 Long term (current) use of anticoagulants; Z90.49 Acquired absence of other specified parts of digestive tract
CPT/HCPCS: 88304; 37799; 80048; 85027; 85610; 85730; 86850; 86900; 86901

== ENCOUNTER → 2023-12-16 10:55 | Outpatient (REF) | payer MEDICARE, BC, SELFPAY | LOC: RAD 10:55 | PROVIDERS: ATTENDING PHYSICIAN Registered Nurse; FAMILY PHYSICIAN Family Medicine | DX: T81.718A Complication of other artery following a procedure, not elsewhere classified, initial encounter (principal) | CPT/HCPCS: 93931 ==

== ENCOUNTER → 2024-02-02 16:01 | Outpatient (REF) | payer MEDICARE, BC, SELFPAY ==
[2024-02-02 13:52] LABS: % Basophils 0.3 % (0-2); % Eosinophils 0.8 % (0-6); % Immature Granulocytes 0.4 % (0-0.5); % Lymphocytes 9.5 % (20.5-51.1); Absolute Eosinophils 0.1 10^3/uL (0-0.7); Absolute Lymphocytes 0.9 10^3/uL (1.2-3.4); Absolute Monocytes 0.6 10^3/uL (0.1-0.6); Absolute Neutrophils 7.9 10^3/uL (1.4-6.5); Hematocrit 27.8 % (37.0-47.0); Hemoglobin 8.8 g/dL (12.0-16.0); Mean Corp Hgb Conc. 31.7 g/dL (33.0-37.0); Mean Corpuscular Hgb 28.1 pg (27.0-31.0); Mean Corpuscular Volume 88.8 fL (81.0-99.0); Mean Platelet Volume 9.5 fL (7.4-10.4); Nucleated Red Blood Cells % 0 %; Platelet Count 228 10^3/uL (130-400); Red Blood Cell Count 3.13 10^6/uL (4.20-5.40); Red Cell Dist. Width 14.5 % (11.5-14.5); Reticulocyte Count 2.2 % (0.4-2.8); White Blood Cell Count 9.5 10^3/uL (4.8-10.8)
[2024-02-02 14:20] LABS: ALT (SGPT) 22 U/L (0-35); AST (SGOT) 33 U/L (14-36); Albumin 3.7 g/dl (3.5-5.0); Alkaline Phosphatase 67 U/L (38-126); Blood Urea Nitrogen 26 mg/dl (7-17); Calcium 9.4 mg/dl (8.4-10.2); Carbon Dioxide 28 mmol/L (22-30); Chloride 106 mmol/L (98-107); Direct Bilirubin 0.2 mg/dl (0.0-0.4); Glucose 97 mg/dl (70-99); Iron 116 ug/dl (37-170); Potassium 4.6 mmol/L (3.5-5.1); Sodium 141 mmol/L (135-145); Total Bilirubin 0.7 mg/dl (0.2-1.3); Total Protein 6.3 g/dl (6.3-8.2); eGFR 25.24
[2024-02-02 14:29] LABS: Percent Saturation 38 % (20-50); Total Iron Binding Capacity 302 ug/dl (265-497)
[2024-02-02 14:47] LABS: Ferritin 60.6 ng/ml (11.1-264.0)
[2024-02-02 15:19] LABS: Folate > 20.0 ng/ml (2.76-20); Vitamin B12 465 pg/ml (239-931)
[2024-02-04 13:54] LABS: Erythropoietin (EPO) 81 mU/mL (4-27)
[2024-02-05 01:34] LABS: ANA, IgG Reflex to HEp-2 None Detected (None Detected)
== END ==
LOC: OIDL 16:01
PROVIDERS: ATTENDING PHYSICIAN Nurse Practitioner Family
DX: R79.9 Abnormal finding of blood chemistry, unspecified (principal); D51.9 Vitamin B12 deficiency anemia, unspecified
CPT/HCPCS: 80053; 82248; 82607; 82668; 82728; 82746; 83540; 83550; 85025; 85045; 86038

== ENCOUNTER → 2024-02-24 15:42 | Outpatient (REF) | payer MEDICARE, BC, SELFPAY ==
[2024-02-24 15:11] LABS: % Basophils 0.4 % (0-2); % Eosinophils 0.9 % (0-6); % Immature Granulocytes 0.3 % (0-0.5); % Lymphocytes 8.9 % (20.5-51.1); % Monocytes 5.6 % (1.7-9.3); % Neutrophils 83.9 % (42.2-75.2); Absolute Eosinophils 0.1 10^3/uL (0-0.7); Absolute Lymphocytes 0.7 10^3/uL (1.2-3.4); Absolute Monocytes 0.4 10^3/uL (0.1-0.6); Absolute Neutrophils 6.5 10^3/uL (1.4-6.5); Hematocrit 33.6 % (37.0-47.0); Hemoglobin 10.3 g/dL (12.0-16.0); Mean Corp Hgb Conc. 30.7 g/dL (33.0-37.0); Mean Corpuscular Hgb 29.3 pg (27.0-31.0); Mean Corpuscular Volume 95.5 fL (81.0-99.0); Mean Platelet Volume 9.7 fL (7.4-10.4); Platelet Count 197 10^3/uL (130-400); Red Blood Cell Count 3.52 10^6/uL (4.20-5.40); Red Cell Dist. Width 18.4 % (11.5-14.5); White Blood Cell Count 7.7 10^3/uL (4.8-10.8)
== END ==
LOC: OIDL 15:42
PROVIDERS: ATTENDING PHYSICIAN Internal Medicine Hematology & Oncology
DX: R79.9 Abnormal finding of blood chemistry, unspecified (principal)
CPT/HCPCS: 85025

== ENCOUNTER 2024-04-06 12:20 | Emergency (ER) | payer MEDICARE, BC, SELFPAY ==
[2024-04-06 12:24] VITALS: BP 125/103; BMI 27.7
[2024-04-06 12:40] LABS: % Basophils 0.4 % (0-2); % Eosinophils 0.6 % (0-6); % Immature Granulocytes 0.7 % (0-0.5); % Lymphocytes 8.9 % (20.5-51.1); % Monocytes 4.5 % (1.7-9.3); % Neutrophils 84.9 % (42.2-75.2); Absolute Eosinophils 0.1 10^3/uL (0-0.7); Absolute Immature Granulocytes 0.1 10^3/uL (0-0.05); Absolute Lymphocytes 0.9 10^3/uL (1.2-3.4); Absolute Monocytes 0.5 10^3/uL (0.1-0.6); Absolute Neutrophils 8.9 10^3/uL (1.4-6.5); Hematocrit 34.5 % (37.0-47.0); Hemoglobin 10.8 g/dL (12.0-16.0); Mean Corp Hgb Conc. 31.3 g/dL (33.0-37.0); Mean Corpuscular Hgb 29.7 pg (27.0-31.0); Mean Corpuscular Volume 94.8 fL (81.0-99.0); Mean Platelet Volume 9.5 fL (7.4-10.4); Nucleated Red Blood Cells % 0 %; Platelet Count 238 10^3/uL (130-400); Red Blood Cell Count 3.64 10^6/uL (4.20-5.40); Red Cell Dist. Width 18.4 % (11.5-14.5); White Blood Cell Count 10.5 10^3/uL (4.8-10.8)
--- NOTE | 2024-04-06 12:48 | ED.GENMED ---
History of Present Illness
General
Chief Complaint: Breathing Problem
Source: patient
Exam Limitations: none
Time Seen by Provider: 04/06/24 12:34
Nursing documentation reviewed up to this point in time: agreed with
History of Present Illness
History of Present Illness:
88 yo female with hx Interstitial lung disease, Aortic stenosis, pleural effusion drained in IR 09/27, CHF, CAD, cardiac stents, HTN, HLD, hypothyroid, GERD presents for increasing SOB over past week. Yesterday got much worse. Her son, a doctor
started her on Doxycycline 100 mg BID and she is on day 6 with worsening SOB. She typically wears 2L NC O2 at night and past week has been using it during the day. Denies chest pain, n/v, abdominal pain. Denies fever or cough
Past History
Past History
ED Past Medical History: CAD, CHF, Fibromyalgia, HTN, Hypercholesterolemia, Hypothyroidism, Other (Polymyalgia rheumatica, fatigue, psoriatic arthritis, chronic neck pain, Spinal stenosis, Ulcers, headache, PNA, Interstitial lung disease, Hiatal
hernia, ULcer) and Other (Interstitial lung disease uses O2 at nighttime)
ED Past Surgical History: Cardiac (Stents X3), Cholecystectomy, Orthopedic (Back surgery. You Knee replacements, Laminectomy with fusion, right foot surgery, ) and Other (Hemorrhoidectomy)
Social History
Tobacco: Former smoker
Alcohol: Occasional
Drug: None
Personal:
Living: alone (Daughter staying with patient at this time 09/09/22)
Employment: Retired
Family History
Family History: Other (Noncontributory)
Review of Systems
Review of Systems
Allergies reviewed?: Yes
All Other Systems: ROS reviewed and negative except as documented in HPI and ROS
Constitutional: Reports fatigue; Denies fever
Respiratory: Reports trouble breathing; Denies cough
Cardiac: Denies chest pain
ABD/GI: Reports anorexia; Denies abdominal pain, nausea, vomiting, diarrhea or constipated
: Denies dysuria, frequency or difficulty voiding
Musculoskeletal: Reports no symptoms; Denies edema
Skin: Reports other (chronic stasis dermatosis bilateral LE)
Neurological: Reports no symptoms
Phy Exam
Physical Exam
Physical Exam:
GENERAL: No acute distress. A&Ox3.
CONSTITUTIONAL: Afebrile.
EYES: clear, conjunctivae normal
ENMT: moist mucus membranes, Pharynx nl
RESPIRATORY: Regular respirations, nonlabored, lungs clear with diminished sounds on left. Pulse ox 97% on 2L NC.
CARDIOVASCULAR: Regular rate and rhythm, no murmurs, no rubs.
GI: Soft, nontender, normal BS
MUSCULOSKELETAL: Moves with ease. Well perfused. No edema
SKIN: Warm, dry, pink. Chronic brawny stasis dermatosis both lower legs.
PSYCH: Normal mood and affect. Well kept, interactive and appropriate
NEUROLOGIC: Awake, alert and oriented. No focal neurological deficits
Scores
Heart Failure Risk
Heart Failure Risk Score: Not Applicable
Sepsis
Sepsis Screening
Sepsis Assessment: Sepsis Ruled Out
Sepsis Screen
Sepsis Screen: Sepsis Ruled Out
Date: 04/06/24
Time: 16:57
Course
Orders/Labs/Results
Orders:
Orders
04/06/24 12:21
Electrocardiogram (*1) Urgent
Reason for Study: Other
Other Reason for Exam: Respiratory Distress
Cardiac Monitoring- Treatment ONCE
EKG- Treatment ONCE
IV Insert/Care/Rem.- Treatment PRN
CR Chest - 2 Views Urgent
Comment:
Reason For Exam: respiratory distress
O2 Therapy [RESP] Urgent
Titrate/Wean O2 to maintain O2 sat greater than (%): 93
Special Instructions: TO MAINTAIN CONTINUOUS O2 SATS >/= 93%
Pulse Ox/cont/shift [RESP] Urgent
Quantity: 1
Special Instructions: continuous pulse ox
04/06/24 12:27
Complete Blood Count/With Diff Urgent
Comprehensive Metabolic Panel Urgent
NT-proBNP Urgent
Troponin I Urgent
04/06/24 12:50
Add On- LAB Urgent
Tests Added?: Troponin
04/06/24 13:05
COVID-19 Antigen Urgent
Source: Nasal Swab
04/06/24 14:49
Consult Interventional Radiology [IRAD CONSULT] Urgent
Consulting Provider: Shyam Dasilva
Was physician already notified: Yes
Reason for Consult/Procedure: Recurrent L pleural effusion.
Acknowledgement that appropriate orders are entered: N/A
04/06/24 16:17
Chest X-ray Portable [CR Chest Portable - 1 View] Urgent
Comment:
Reason For Exam: Left Thoracentesis
Reason Study Needs to be Portable: Unable to Transport
Abnormal Lab Results
04/06/24
12:27
RBC 3.64 L 10^6/uL
(4.20-5.40)
Hgb 10.8 L g/dL
(12.0-16.0)
Hct 34.5 L %
(37.0-47.0)
MCHC 31.3 L g/dL
(33.0-37.0)
RDW 18.4 H %
(11.5-14.5)
Abs Immat Gran (auto) 0.1 H 10^3/uL
(0-0.05)
Absolute Neuts (auto) 8.9 H 10^3/uL
(1.4-6.5)
Absolute Lymphs (auto) 0.9 L 10^3/uL
(1.2-3.4)
Immature Gran % 0.7 H %
(0-0.5)
Neutrophils % 84.9 H %
(42.2-75.2)
Lymphocytes % 8.9 L %
(20.5-51.1)
Carbon Dioxide 33 H mmol/L
(22-30)
BUN 37 H mg/dl
(7-17)
Creatinine 1.8 H mg/dL
(0.6-1.0)
AST 89 H U/L
(14-36)
ALT 76 H U/L
(0-35)
04/06/24 12:27
04/06/24 12:27
Vital Signs
Initial and Last Documented VS:
Initial Vital Signs
Temp Pulse Resp BP Pulse Ox
98.5 F 112 27 125/103 97
04/06/24 12:24 04/06/24 12:24 04/06/24 12:24 04/06/24 12:24 04/06/24 12:24
Last Documented Vital Signs
Temp Pulse Resp BP Pulse Ox
97.7 F 99 20 109/81 100
04/06/24 15:30 04/06/24 16:48 04/06/24 16:48 04/06/24 16:48 04/06/24 16:16
MDM/Problems Addressed
Differential Diagnosis Includes:
PNA, exacerbation COPD, pleural effusion
MDM/Problems Addressed:
88 yo female with hx Interstitial lung disease, pleural effusion drained in IR 09/27, Aortic stenosis, CHF, CAD, cardiac stents, HTN, HLD, hypothyroid, GERD presents for increasing SOB over past week. Yesterday got much worse. Her son, a doctor
started her on Doxycycline 100 mg BID and she is on day 6 with worsening SOB. She typically wears 2L NC O2 at night and past week has been using it during the day. Denies chest pain, n/v, abdominal pain. Denies fever or cough\\
Afebrile, NAD Pulse ox 97% on 2L NC.
EKG: Afib w RVR rate 104.
CBC with no clinically significant abnormality
CMP with no clinically significant abnormality. Her BUN and creatinine are at her baseline for CKD
BNP: 7540
Troponin: 0.025
3:00 p.m.
CXR: Radiology report read: IMPRESSION:
Moderate left pleural effusion. Loculated. Progressed.
Tiny right pleural effusion. Progressed
Left suprahilar airspace disease concerning for pneumonia.
Possible mild pulmonary edema versus findings due to limited inspiration. Progressed
Cardiomegaly. Stable
Pt had IR L thoracentesis 09/26/23 chemistries and ctetology and culture showing no growth. Most likely transudative consistent with CHF
No fluid chemistries needed this time
Spoke with IR who can perform thoracentesis today.
4:25 p.m.
IR drained 900 ml fluid
Pt OOB and walking up and down hallway, maintained Pulse ox of 93-95%
Plan:
Pt will finish her Doxycycline
Use home O2 of 2L/min
Call Dr. Malcolm tomorrow to inform of today's visit
Pt is comfortable going home
Discharged to care of visitor in room
*Critical Care Note
Total Time (30-74mins, 75-104mins- exclusive of procedures): Not Applicable
ED Attending Note
-
Portions of this chart may have been created with voice recognition software.� Occasional wrong word or��sound alike� substitutions may have occurred due to the inherent limitations of voice recognition software.
Discharge Plan
Departure
Patient Disposition: Home (Routine Discharge)
Date of Disposition: 04/06/24
Time of Disposition: 16:53
Patient with high blood pressure during this ER visit?: No
Condition: Good
Discharge Problem:
Recurrent left pleural effusion
Instructions: Pleural effusion - Discharge instructions
Prescriptions:
No Action
venlafaxine 75 MG capsule,extended release 24hr
75 mg PO DAILY
prednisone 5 MG tablet
5 mg PO QPM
Patient Comments:
cholecalciferol (vitamin D3) 1,000 UNITS tablet
1,000 units PO QPM
ezetimibe 10 MG tablet
10 mg PO QPM
therapeutic multivitamin Tablet
1 tab PO QPM
levothyroxine 75 mcg Tablet
75 mcg PO DAILY AT 0700 30 Days Qty: 30 0RF
pantoprazole 40 mg Tablet,Delayed Release (Dr/Ec)
40 mg PO DAILY Qty: 30 11RF
Eliquis 2.5 mg Tablet
2.5 mg PO BID Qty: 60 11RF
atorvastatin 40 mg Tablet
40 mg PO QPM Qty: 30 11RF
clopidogrel 75 mg Tablet
75 mg PO DAILY Qty: 30 11RF
isosorbide mononitrate 30 mg Tablet Extended Release 24 Hr
30 mg PO DAILY 30 Days Qty: 30 0RF
famotidine 20 mg Tablet
20 mg PO Q48H Qty: 0 0RF
furosemide 40 mg Tablet
60 mg PO BID
potassium chloride 20 mEq tablet,ER particles/crystals
40 meq PO DAILY
digoxin 62.5 mcg (0.0625 mg) tablet
62.5 mcg PO MOWEFR
clonidine HCl 0.1 mg Tablet
0.1 mg PO PRN PRN (Reason: SBP > 160)
amiodarone 200 mg Tablet
200 mg PO DAILY
carvedilol 25 mg tablet
12.5 mg PO BID
amiodarone 100 mg tablet
100 mg PO QPM
Rx Instructions:
can start in 3 weeks after 200mg daily dosing completed
benzonatate 200 mg Capsule
200 mg PO TID PRN (Reason: cough )
Glucosamine Chondroitin PLUS [id number] mg Capsule
1 cap PO BID
Referrals:
Eulalio Mccarty MD [Active] - Tomorrow
UNKNOWN - PT DOES,NOT KNOW [Family Provider] -
Activity Restrictions/Additional Instructions:
As we discussed, call Dr. Bibiana's office tomorrow and inform of today's visit
Use your oxygen 2L/min at home
Return here immediately for worsening shortness of breath, chest pain, fever or feeling sicker in any way.
You may finish the Doxycycline
Interventions
Interventions:
*Risk Screen - Suicide Last Done: 04/06/24 12:24
*General Assessment Last Done: 04/06/24 12:24
*Neglect/Abuse Screening Last Done: 04/06/24 12:24
ED- Fall Risk Assessment Last Done: 04/06/24 13:39
ED- Cardiac Assessment Last Done: 04/06/24 13:39
ED- Pulmonary Assessment Last Done: 04/06/24 13:39
Discharge Date and Time
Print Language: MAURITANIAN
[2024-04-06 13:00] VITALS: BP 157/88
[2024-04-06 13:01] LABS: ALT (SGPT) 76 U/L (0-35); AST (SGOT) 89 U/L (14-36); Albumin 3.6 g/dl (3.5-5.0); Alkaline Phosphatase 73 U/L (38-126); Blood Urea Nitrogen 37 mg/dl (7-17); Calcium 9.4 mg/dl (8.4-10.2); Carbon Dioxide 33 mmol/L (22-30); Chloride 101 mmol/L (98-107); Estimated Creatinine Clearance 20 ml/min; Glucose 98 mg/dl (70-99); Potassium 4.9 mmol/L (3.5-5.1); Sodium 143 mmol/L (135-145); Total Bilirubin 0.8 mg/dl (0.2-1.3); Total Protein 6.4 g/dl (6.3-8.2); eGFR 26.93
[2024-04-06 13:16] LABS: NT-proBNP 7540 pg/ml
[2024-04-06 13:38] LABS: COVID-19 Antigen Negative (Negative)
[2024-04-06 13:59] LABS: Troponin I 0.025 ng/ml
[2024-04-06 15:30] VITALS: BP 128/79; BP_SYST 109
[2024-04-06 16:16] VITALS: BP 109/81; BP_SYST 99
[2024-04-06 16:48] VITALS: BP 109/81
== END 2024-04-06 18:07 | disposition home or self-care (01) ==
LOC: EMR 12:20
PROVIDERS: Registered Nurse; CONSULT PHYSICIAN Radiology Vascular & Interventional Radiology; EMERGENCY PHYSICIAN Student in an Organized Health Care Education/Training Program
DX: J90 Pleural effusion, not elsewhere classified (principal); J84.9 Interstitial pulmonary disease, unspecified; I35.0 Nonrheumatic aortic (valve) stenosis; I11.0 Hypertensive heart disease with heart failure; I50.9 Heart failure, unspecified; E03.9 Hypothyroidism, unspecified; K21.9 Gastro-esophageal reflux disease without esophagitis; Z87.01 Personal history of pneumonia (recurrent)
CPT/HCPCS: 99284; 32555; 71045; 71046; 80053; 83880; 84484; 85025; 87811; 93005

== ENCOUNTER 2024-04-17 18:23 | Emergency (ER) | payer MEDICARE, BC, SELFPAY ==
[2024-04-17 18:25] VITALS: BP 126/60
--- NOTE | 2024-04-17 18:45 | ED.MUSCINJ ---
HPI-Injury
General
Chief Complaint: Fall
Source: patient
Exam Limitations: none
Time Seen by Provider: 04/17/24 18:25
Nursing documentation reviewed up to this point in time: agreed with
History of Present Illness-Injury
Is this injury a work related problem?: No
Is pt an associate of [facility]?: No
Initial Injury comments:
Patient to ED s/p fall. State she held her urine to long and started to leak. Slipped on urine on floor. Does not recall hitting her head but has a small hematoma to mid forehead. No LOC. COmplains of pain to right foot/ankle. Has skin tear to
right knee, large heamtoma to left thigh. 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 Was not able to reach her family so she called her neighbor who then called 911. Brought to ED via EMS for eval.
Past History
Past History
ED Past Medical History: CAD, CHF, Fibromyalgia, HTN, Hypercholesterolemia, Hypothyroidism, Other (Polymyalgia rheumatica, fatigue, psoriatic arthritis, chronic neck pain, Spinal stenosis, Ulcers, headache, PNA, Interstitial lung disease, Hiatal
hernia, ULcer) and Other (Interstitial lung disease uses O2 at nighttime)
ED Past Surgical History: Cardiac (Stents X3), Cholecystectomy, Orthopedic (Back surgery. You Knee replacements, Laminectomy with fusion, right foot surgery, ) and Other (Hemorrhoidectomy)
Social History
Tobacco: Former smoker
Alcohol: Occasional
Drug: None
Personal:
Living: alone (Daughter staying with patient at this time 09/09/22)
Employment: Retired
Family History
Family History: Other (Noncontributory)
Review of Systems
Review of Systems
Allergies reviewed?: Yes
All Other Systems: ROS reviewed and negative except as documented in HPI and ROS
Constitutional: Reports no symptoms
EENT: Reports no symptoms
Respiratory: Reports no symptoms
Cardiac: Reports no symptoms
ABD/GI: Reports no symptoms
Musculoskeletal: Reports joint pain (Pain to right foot and ankle)
Skin: Reports other (skin tear to right knee, hematoma to left thigh)
Neurological: Reports no symptoms
Psychiatric: Reports no symptoms
Musculoskeletal Injury Exam
Musculoskeletal Injury Exam
Right Foot:
Pain with Movement?: Moderate
Tender to palpation?: Moderate
Soft tissue swelling?: Moderate
External deformity and angulation?: None
Joint effusion?: None
Contusion?: Moderate
Hematoma-local bleeding into tissue?: Moderate
Strain- Sprain- Tear (Connective tissue injury)?: Moderate
Crepitus with movement?: No
Joint instability?: No
Malalignment/deformity?: No
Range of motion: Full
Distal skin color and temperature: normal-warm & good color
Capillary Refill: normal
Normal distal neurovascular exam?: Yes
Peripheral Pulses: posterior tibial (right): 3+ and dorsalis pedis (right): 3+
Right Lateral Ankle:
Pain with Movement?: Mild
Tender to palpation?: Mild
Soft tissue swelling?: Mild
External deformity and angulation?: None
Joint effusion?: None
Contusion?: Mild
Hematoma-local bleeding into tissue?: Mild
Crepitus with movement?: No
Joint instability?: No
Malalignment/deformity?: No
Range of motion: Full
Distal skin color and temperature: normal-warm & good color
Capillary Refill: normal
Normal distal neurovascular exam?: Yes
Skin Exam
Laceration
Right Anterior Knee:
Length in cm: 2.5
Orientation: C shaped (skin tear)
Type of Laceration: simple
Any active bleeding?: no active bleeding
Distal skin color and temperature: normal-warm & good color
Normal distal neurovascular exam: Yes
Range of motion: full
Phy Exam
General Physical Exam
General Presentation: well appearing and no apparent distress
General age: appears stated age
General Skin: warm and dry
General Habitus: normal
General Mental: alert
Pulmonary Exam
Pulmonary Exam: no respiratory distress and chest non tender
Gastrointestinal Exam
Gastrointestinal Exam: non tender and soft
Nadia Coma Scale
Eye Opening: Spontaneous
Verbal Response: Oriented
Motor Response: Obeys Commands
GCS Total Score: 15
Musculoskeletal Exam
Musculoskeletal Exam: full ROM, neuro vasc intact and other (Full nonpainful ROM to head/neck , back. No hip or pelvic pain. Full ROM upper and lower extremities.)
Skin Exam
Skin Exam: normal color, warm/dry, no rash and other (Skin tear to right ant. knee. Large hematoma left laateral thigh)
Psychiatric Exam
Psychiatric Exam: normal mood/affect
Injury Course
Orders/Labs/Results
Orders:
Orders
04/17/24 18:33
CT Head W/o Iv Contrast Urgent
Comment:
Reason For Exam: fall +thinners
04/17/24 18:44
CR Ankle - Right Min 3 Views * Urgent
Comment:
Reason For Exam: fall
Foot, Right 3 View [CR Foot - Right Min 3 Views] Urgent
Comment:
Reason For Exam: fall
Knee, Left 4 or More Views [CR Knee - Left 4 Or More View*] Urgent
Comment:
Reason For Exam: fall
Knee, Right 4 or More Views [CR Knee- Right 4 Or More View*] Urgent
Comment:
Reason For Exam: fall
04/17/24 18:46
Urinalysis Reflex To Culture Urgent
*Radiology
Radiology exam reviewed: radiology read reviewed
*Pulse Oximetry
Patient hypoxic: no
*Critical Care Note
Total Time (30-74mins, 75-104mins- exclusive of procedures): Not Applicable
ED Attending Note
-
Portions of this chart may have been created with voice recognition software.� Occasional wrong word or��sound alike� substitutions may have occurred due to the inherent limitations of voice recognition software.
Discharge Plan
Departure
Patient Disposition: Home (Routine Discharge)
Date of Disposition: 04/17/24
Time of Disposition: 19:37
Patient with high blood pressure during this ER visit?: No
Condition: Good
Covid-19: Not Applicable
Discharge Problem:
Head injury, Ankle sprain, Skin tear
Instructions: Wound Care (DC), Head Injury in Adults (DC), Contusion (DC)
Prescriptions:
No Action
venlafaxine 75 MG capsule,extended release 24hr
75 mg PO DAILY
prednisone 5 MG tablet
5 mg PO QPM
Patient Comments:
cholecalciferol (vitamin D3) 1,000 UNITS tablet
1,000 units PO QPM
ezetimibe 10 MG tablet
10 mg PO QPM
therapeutic multivitamin Tablet
1 tab PO QPM
levothyroxine 75 mcg Tablet
75 mcg PO DAILY AT 0700 30 Days Qty: 30 0RF
pantoprazole 40 mg Tablet,Delayed Release (Dr/Ec)
40 mg PO DAILY Qty: 30 11RF
Eliquis 2.5 mg Tablet
2.5 mg PO BID Qty: 60 11RF
atorvastatin 40 mg Tablet
40 mg PO QPM Qty: 30 11RF
clopidogrel 75 mg Tablet
75 mg PO DAILY Qty: 30 11RF
isosorbide mononitrate 30 mg Tablet Extended Release 24 Hr
30 mg PO DAILY 30 Days Qty: 30 0RF
famotidine 20 mg Tablet
20 mg PO Q48H Qty: 0 0RF
furosemide 40 mg Tablet
60 mg PO BID
potassium chloride 20 mEq tablet,ER particles/crystals
40 meq PO DAILY
digoxin 62.5 mcg (0.0625 mg) tablet
62.5 mcg PO MOWEFR
clonidine HCl 0.1 mg Tablet
0.1 mg PO PRN PRN (Reason: SBP > 160)
amiodarone 200 mg Tablet
200 mg PO DAILY
carvedilol 25 mg tablet
12.5 mg PO BID
amiodarone 100 mg tablet
100 mg PO QPM
Rx Instructions:
can start in 3 weeks after 200mg daily dosing completed
benzonatate 200 mg Capsule
200 mg PO TID PRN (Reason: cough )
Glucosamine Chondroitin PLUS [id number] mg Capsule
1 cap PO BID
Activity Restrictions/Additional Instructions:
Follow up with your family doctor.
Interventions
Interventions:
*Risk Screen - Suicide Last Done: 04/17/24 18:25
*General Assessment Last Done: 04/17/24 18:25
ED-Musculoskeletal Assessment Last Done: 04/17/24 18:41
ED- Neurological Assessment Last Done: 04/17/24 18:41
ED-Skin Assessment Last Done: 04/17/24 18:41
Discharge Date and Time
Print Language: FRENCH
--- NOTE | 2024-04-17 19:51 | EDRN ---
Patient was able to ambulate to the restroom with use of walker without difficulty and back in bed resting, dialed her son for her so she could call him to come get her.
[2024-04-17 19:59] LABS: Urine Albumin Negative (Neg - Trace); Urine Bilirubin Negative (Negative); Urine Character Clear (Clear); Urine Color Yellow; Urine Glucose Negative (Negative); Urine Ketone Negative (Negative); Urine Leukocyte Trace (Negative); Urine Nitrite Negative (Negative); Urine Occult Blood Negative (Negative); Urine Urobilinogen Negative (Neg - 1+); Urine pH 6.5 (5.0-9.0)
[2024-04-17 20:09] LABS: Urine Red Blood Cell 0-2 /HPF (0-2); Urine White Cell 0-2 /HPF (0-5)
== END 2024-04-17 20:40 | disposition home or self-care (01) ==
LOC: EMR 18:23
PROVIDERS: Nurse Practitioner; EMERGENCY PHYSICIAN Student in an Organized Health Care Education/Training Program; FAMILY PHYSICIAN Family Medicine
DX: S09.90XA Unspecified injury of head, initial encounter (principal); S93.401A Sprain of unspecified ligament of right ankle, initial encounter; S81.011A Laceration without foreign body, right knee, initial encounter; S00.83XA Contusion of other part of head, initial encounter; S70.12XA Contusion of left thigh, initial encounter; S90.31XA Contusion of right foot, initial encounter; W01.0XXA Fall on same level from slipping, tripping and stumbling without subsequent striking against object, initial encounter; I11.0 Hypertensive heart disease with heart failure; I50.9 Heart failure, unspecified; I25.10 Atherosclerotic heart disease of native coronary artery without angina pectoris; M79.7 Fibromyalgia; E78.00 Pure hypercholesterolemia, unspecified; E03.9 Hypothyroidism, unspecified; M35.3 Polymyalgia rheumatica; L40.50 Arthropathic psoriasis, unspecified; M48.00 Spinal stenosis, site unspecified; J84.9 Interstitial pulmonary disease, unspecified; K44.9 Diaphragmatic hernia without obstruction or gangrene; I35.0 Nonrheumatic aortic (valve) stenosis; K21.9 Gastro-esophageal reflux disease without esophagitis; M81.0 Age-related osteoporosis without current pathological fracture; G89.29 Other chronic pain; Z99.81 Dependence on supplemental oxygen; Z95.5 Presence of coronary angioplasty implant and graft; Z96.653 Presence of artificial knee joint, bilateral; Z96.643 Presence of artificial hip joint, bilateral; Z87.01 Personal history of pneumonia (recurrent); Z87.891 Personal history of nicotine dependence; Z90.49 Acquired absence of other specified parts of digestive tract
CPT/HCPCS: 99284; 70450; 73564; 73610; 73630; 81003; 81015

== ENCOUNTER → 2024-05-04 10:39 | Outpatient (REF) | payer MEDICARE, BC, SELFPAY ==
[2024-05-04 11:00] VITALS: BP 111/54; BP_SYST 80
[2024-05-04 11:35] LABS: Body Fluid pH 7.49
[2024-05-04 11:42] LABS: Body Fluid Mononuclear 77.3 %; Body Fluid Polymorphonuclear 22.7 %; Body Fluid WBC 172 /CUMM
[2024-05-04 11:54] LABS: Body Fluid Glucose 90 mg/dl; Body Fluid LDH 107 U/L; Body Fluid Protein < 2.0 g/dl
[2024-05-04 11:55] LABS: Body Fluid Second Tech ASW
[2024-05-04 12:18] VITALS: BP 114/64
== END ==
LOC: RADI 10:39
PROVIDERS: ATTENDING PHYSICIAN Internal Medicine Critical Care Medicine; FAMILY PHYSICIAN Family Medicine
DX: J90 Pleural effusion, not elsewhere classified (principal)
CPT/HCPCS: 88305; 32555; 71250; 82945; 83615; 83986; 84157; 87015; 87070; 87102; 87116; 87205; 88112; 89051

== ENCOUNTER 2024-05-20 18:00 | Inpatient (IN) | payer MEDICARE, BC, SELFPAY ==
[2024-05-20] VITALS (10 sets, daily range): BP systolic 100–132; BP diastolic 55–85; BMI 30.4; BMI 28.5
[2024-05-20 13:29] LABS: % Basophils 0.4 % (0-2); % Eosinophils 1.2 % (0-6); % Immature Granulocytes 0.5 % (0-0.5); % Lymphocytes 12.4 % (20.5-51.1); % Monocytes 9.5 % (1.7-9.3); Absolute Eosinophils 0.1 10^3/uL (0-0.7); Absolute Monocytes 0.7 10^3/uL (0.1-0.6); Absolute Neutrophils 5.9 10^3/uL (1.4-6.5); Hemoglobin 9.9 g/dL (12.0-16.0); Mean Corp Hgb Conc. 30.9 g/dL (33.0-37.0); Mean Corpuscular Hgb 29.1 pg (27.0-31.0); Mean Corpuscular Volume 94.1 fL (81.0-99.0); Mean Platelet Volume 9.2 fL (7.4-10.4); Nucleated Red Blood Cells % 0 %; Platelet Count 196 10^3/uL (130-400); Red Cell Dist. Width 15.8 % (11.5-14.5); White Blood Cell Count 7.8 10^3/uL (4.8-10.8)
[2024-05-20 13:45] LABS: ALT (SGPT) 57 U/L (0-35); AST (SGOT) 62 U/L (14-36); Albumin 3.4 g/dl (3.5-5.0); Alkaline Phosphatase 80 U/L (38-126); Blood Urea Nitrogen 48 mg/dl (7-17); Calcium 8.4 mg/dl (8.4-10.2); Carbon Dioxide 33 mmol/L (22-30); Chloride 101 mmol/L (98-107); Glucose 93 mg/dl (70-99); Potassium 3.4 mmol/L (3.5-5.1); Sodium 145 mmol/L (135-145); Total Bilirubin 0.8 mg/dl (0.2-1.3); Total Protein 6.1 g/dl (6.3-8.2); eGFR 28.67
[2024-05-20 13:53] LABS: NT-proBNP 10500 pg/ml
--- NOTE | 2024-05-20 14:14 | ED.GENMED ---
History of Present Illness
<Sharmila Lombardi PA-C - Last Filed: 05/20/24 16:39>
General
Chief Complaint: Swelling
Source: patient
Exam Limitations: none
Time Seen by Provider: 05/20/24 13:13
Nursing documentation reviewed up to this point in time: agreed with
History of Present Illness
History of Present Illness:
Patient is an 89-year-old female with history of CHF, CAD, hypertension, anemia presenting to the emergency department due to lower leg swelling and worsening shortness of breath. Patient states that over the past week she has developed significant
swelling of her bilateral lower legs, although left leg does seems worse than right. They are weeping a clear liquid and she wakes up with her sheets soaked from the drainage. Since yesterday she states that the left leg seemed red, warm, and
mildly tender. Patient also reports increasing shortness of breath with very minimal exertion over the past 2 days. She is on 2 L oxygen NC at her baseline.
Patient denies any exertional chest pain. Patient denies any fevers or chills.
Patient is followed by Dr. Santos as her primary orthopaedic physician assistant. She does take 120 mg of Lasix daily.
Past History
<Sharmila Lombardi PA-C - Last Filed: 05/20/24 16:39>
Past History
ED Past Medical History: CAD, CHF, Fibromyalgia, HTN, Hypercholesterolemia, Hypothyroidism, Other (Polymyalgia rheumatica, fatigue, psoriatic arthritis, chronic neck pain, Spinal stenosis, Ulcers, headache, PNA, Interstitial lung disease, Hiatal
hernia, ULcer) and Other (Interstitial lung disease uses O2 at nighttime)
ED Past Surgical History: Cardiac (Stents X3), Cholecystectomy, Orthopedic (Back surgery. You Knee replacements, Laminectomy with fusion, right foot surgery, ) and Other (Hemorrhoidectomy)
Social History
Tobacco: Former smoker
Alcohol: Occasional
Drug: None
Personal:
Living: alone (Daughter staying with patient at this time 09/09/22)
Employment: Retired
Family History
Family History: Other (Noncontributory)
Review of Systems
<Sharmila Lombardi PA-C - Last Filed: 05/20/24 16:39>
Review of Systems
Allergies reviewed?: Yes
All Other Systems: ROS reviewed and negative except as documented in HPI and ROS
Phy Exam
<Sharmila Lombardi PA-C - Last Filed: 05/20/24 16:39>
Physical Exam
Physical Exam:
Vitals: Patient's vital signs are stable. Afebrile
General: Patient is well appearing, no acute distress
Skin: Warm and dry, no rashes or lesions
Head: Normocephalic, atraumatic
Eyes: Subconjunctival hemorrhage of right eye. EOMs intact. No nystagmus.
Throat: Protecting airway
Neck: Normal ROM, no cervical spine tenderness, no meningismus. No JVD
Cardiac: Regular rate, irregular rhythm, no murmurs.
Pulm: Few fine crackles at bases. Oxygen saturation 98 on 2 L nasal cannula. No apparent respiratory distress.
Abdomen: Abdomen soft. No abdominal tenderness.
Extremities: 2+ pitting edema bilateral lower extremities L>R. Mild erythema and warmth to left medial calf. Palpable DP pulses bilaterally
Neuro: AAOx3. CN II-XII intact. No focal neurologic deficits.
Psychiatric: Normal affect.
Scores
<Sharmila Lombardi PA-C - Last Filed: 05/20/24 16:39>
Heart Failure Risk
Heart Failure Risk Score: Yes
History of Stroke or TIA: No
History of intubation for respiratory distress: No
Heart rate on ED arrival >/= 110: No
SaO2 <90% on arrival on room air: Yes
HR >/=110 during 3min walk test (or too ill to perform test): No
ECG has acute ischemic changes: No
Urea >/=12mmol/L (BUN 33.6mg/dL): Yes
Serum CO2>/=35mmol/L: No
Troponin I or T elevated to [place] Level (0.4mg/dL): No
NT-proBNP >/=5,000ng/L (5,000pg/ml): Yes
HF Risk Score: 3
Admission Status: HIGH RISK 15.9% Consider SNF treatment or admission to hospital
Course
<Sharmila Lombardi PA-C - Last Filed: 05/20/24 16:39>
Orders/Labs/Results
Orders:
Orders
05/20/24 13:16
Electrocardiogram (*1) Urgent
Reason for Study: Shortness of Breath
EKG- Treatment ONCE
05/20/24 13:19
Complete Blood Count/With Diff Urgent
Comprehensive Metabolic Panel Urgent
NT-proBNP Urgent
Troponin I Urgent
Comment: ADD ON
05/20/24 13:52
CR Chest - 2 Views Urgent
Comment:
Reason For Exam: Shortness of breath, hypoxia
05/20/24 13:55
Add On- LAB Urgent
Tests Added?: troponin
05/20/24 15:16
Legs, left US [US Periph Venous LOWER Ext LT] Urgent
Comment:
Reason For Exam: erythema, pitting edema LLE
05/20/24 16:20
Electrocardiogram (*1) Urgent
Reason for Study: Shortness of Breath
EKG- Treatment ONCE
Troponin I Urgent
05/20/24 16:29
Furosemide [Lasix] 40 mg IV NOW STA
Abnormal Lab Results
05/20/24
13:19
RBC 3.40 L 10^6/uL
(4.20-5.40)
Hgb 9.9 L g/dL
(12.0-16.0)
Hct 32.0 L %
(37.0-47.0)
MCHC 30.9 L g/dL
(33.0-37.0)
RDW 15.8 H %
(11.5-14.5)
Absolute Lymphs (auto) 1.0 L 10^3/uL
(1.2-3.4)
Absolute Monos (auto) 0.7 H 10^3/uL
(0.1-0.6)
Neutrophils % 76.0 H %
(42.2-75.2)
Lymphocytes % 12.4 L %
(20.5-51.1)
Monocytes % 9.5 H %
(1.7-9.3)
Potassium 3.4 L mmol/L
(3.5-5.1)
Carbon Dioxide 33 H mmol/L
(22-30)
BUN 48 H mg/dl
(7-17)
Creatinine 1.7 H mg/dL
(0.6-1.0)
AST 62 H U/L
(14-36)
ALT 57 H U/L
(0-35)
Troponin I 0.059 H* ng/ml
Total Protein 6.1 L g/dl
(6.3-8.2)
Albumin 3.4 L g/dl
(3.5-5.0)
05/20/24 13:19
05/20/24 13:19
Vital Signs
Initial and Last Documented VS:
Initial Vital Signs
Temp Pulse Resp BP Pulse Ox
97.6 F 98 18 128/55 99
05/20/24 13:10 05/20/24 13:10 05/20/24 13:10 05/20/24 13:10 05/20/24 13:10
Last Documented Vital Signs
Temp Pulse Resp BP Pulse Ox
97.6 F 109 25 108/62 100
05/20/24 13:10 05/20/24 14:30 05/20/24 14:15 05/20/24 14:00 05/20/24 14:15
<Yoselyn Rodbarby, DO - Last Filed: 05/20/24 15:22>
Orders/Labs/Results
Orders:
Orders
05/20/24 13:16
Electrocardiogram (*1) Urgent
Reason for Study: Shortness of Breath
EKG- Treatment ONCE
05/20/24 13:19
Complete Blood Count/With Diff Urgent
Comprehensive Metabolic Panel Urgent
NT-proBNP Urgent
Troponin I Urgent
Comment: ADD ON
05/20/24 13:52
CR Chest - 2 Views Urgent
Comment:
Reason For Exam: Shortness of breath, hypoxia
05/20/24 13:55
Add On- LAB Urgent
Tests Added?: troponin
05/20/24 15:16
Legs, left US [US Periph Venous LOWER Ext LT] Urgent
Comment:
Reason For Exam: erythema, pitting edema LLE
05/20/24 16:20
Electrocardiogram (*1) Urgent
Reason for Study: Shortness of Breath
EKG- Treatment ONCE
Troponin I Urgent
05/20/24 16:29
Furosemide [Lasix] 40 mg IV NOW STA
Abnormal Lab Results
05/20/24
13:19
RBC 3.40 L 10^6/uL
(4.20-5.40)
Hgb 9.9 L g/dL
(12.0-16.0)
Hct 32.0 L %
(37.0-47.0)
MCHC 30.9 L g/dL
(33.0-37.0)
RDW 15.8 H %
(11.5-14.5)
Absolute Lymphs (auto) 1.0 L 10^3/uL
(1.2-3.4)
Absolute Monos (auto) 0.7 H 10^3/uL
(0.1-0.6)
Neutrophils % 76.0 H %
(42.2-75.2)
Lymphocytes % 12.4 L %
(20.5-51.1)
Monocytes % 9.5 H %
(1.7-9.3)
Potassium 3.4 L mmol/L
(3.5-5.1)
Carbon Dioxide 33 H mmol/L
(22-30)
BUN 48 H mg/dl
(7-17)
Creatinine 1.7 H mg/dL
(0.6-1.0)
AST 62 H U/L
(14-36)
ALT 57 H U/L
(0-35)
Troponin I 0.059 H* ng/ml
Total Protein 6.1 L g/dl
(6.3-8.2)
Albumin 3.4 L g/dl
(3.5-5.0)
05/20/24 13:19
05/20/24 13:19
Vital Signs
Initial and Last Documented VS:
Initial Vital Signs
Temp Pulse Resp BP Pulse Ox
97.6 F 98 18 128/55 99
05/20/24 13:10 05/20/24 13:10 05/20/24 13:10 05/20/24 13:10 05/20/24 13:10
Last Documented Vital Signs
Temp Pulse Resp BP Pulse Ox
97.6 F 109 25 108/62 100
05/20/24 13:10 05/20/24 14:30 05/20/24 14:15 05/20/24 14:00 05/20/24 14:15
<Sharmila Lombardi PA-C - Last Filed: 05/20/24 16:39>
MDM/Problems Addressed
Differential Diagnosis Includes:
Not limited to: Acute on chronic CHF, DVT, cellulitis, bronchitis, ACS, etc.
MDM/Problems Addressed:
81-year-old female with history as documented presenting with bilateral lower extremity edema and worsening dyspnea on exertion over the past week. No chest pain, fevers. Vital stable. Patient is saturating at 98% on 2 L which is her baseline.
Patient's vital signs are stable. Physical exam as above. Will check labs, proBNP, Trope. Will check chest x-ray. Suspect likely acute on chronic CHF exacerbation although given asymmetry between bilateral lower extremities�will check ultrasound
to rule out DVT although I feels unlikely given patient is currently anticoagulated on Eliquis. Lower suspicion for infectious process.
Update: Labs reviewed. There is no leukocytosis. Anemia with hemoglobin of 9.9�which appears stable. Renal insufficiency noted all [place] [address]. Troponin mildly elevated to 0.059. Will trend although likely
secondary to fluid overload. Low suspicion for ACS. Chest x-ray and ultrasound pending.
Chronic conditions affecting care:
CHF, hypertension
<Sharmila Lombardi PA-C - Last Filed: 05/20/24 16:39>
*Radiology
Radiology exam reviewed: preliminary read by ED provider and radiology read reviewed (Ultrasound left lower extremity negative for DVT)
*Pulse Oximetry
Patient hypoxic: no
*EKG
Interpreted by ED Provider?: Yes
EKG Intrepretation Date: 05/20/24
Interpretation: abnormal
Comparison EKG: changes noted
Heart Rate: 104
Rate: tachycardiac
Rhythm: a-fib
QRS Pattern: low voltage
Ischemia: non-specific ST changes
*Cvicu Rn Interpretation
Rate: normal
Interpretation: abnormal
Heart Rate: 98
Rhythm: a-fib
*Critical Care Note
Total Time (30-74mins, 75-104mins- exclusive of procedures): Not Applicable
Data Reviewed
Review of Other/Old Records Reveals: Testing (Cardiac echo from 09/25/2023-EF of 30-35%)
Source: previous hospital records
<Sharmila Lombardi PA-C - Last Filed: 05/20/24 16:39>
Patient Management
Discussion with other providers: Hospitalist
Escalation/DeEscalation of care consider admission/obs:
Admit for careful fluid management, IV diuresis
<Sharmila Lombardi PA-C - Last Filed: 05/20/24 16:39>
Update Note
Update Note:
Update 4:25 PM: Initial read of chest x-ray by myself and attending does show mild pulmonary edema. Ultrasound of left lower extremity negative for DVT. Patient will be admitted for CHF exacerbation and IV diuresis-will require careful fluid
balance given associated renal insufficiency. Patient accepted to hospitalist service in stable condition.
ED Attending Note
<Sharmila Lombardi PA-C - Last Filed: 05/20/24 16:39>
-
Portions of this chart may have been created with voice recognition software.� Occasional wrong word or��sound alike� substitutions may have occurred due to the inherent limitations of voice recognition software.
<Yoselyn Russell DO - Last Filed: 05/20/24 15:22>
ED Attending Note
Patient seen and examined by attending physician: Yes
I performed the substantive portion of visit, reviewed & personally made and approve the management plan that is documented in note by myself or MANA.: Yes
I performed a history and physical exam of patient and discussed management with resident, I reviewed resident's note and agree with documented findings and plan of care.: Yes
ED Attending Note:
89-year-old female with history of A-fib on Eliquis, CHF with O2 dependence presenting to the emergency department with increased lower extremity edema and shortness of breath. Notes symptoms for the past few days, with increased shortness of
breath with exertion. Patient reports compliance with her Lasix. Notes increased swelling to the left lower extremity comparison to the right with pain. Denies fever or cough. Lasix twice daily, 60 mg. 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 Vital
signs are normal, however per medics, noted to be 79% prior to arrival.
On exam, patient resting comfortably. No significant increased work of breathing. Scant crackles at the bases. Patient is in A-fib, known history. On examination of the lower extremities, +2 pitting edema, left greater than right with scant
erythema and tenderness to palpation. Suspect acute on chronic CHF. Plan for laboratory analysis, chest x-ray imaging. Given asymmetry of lower extremities, will also obtain DVT ultrasound, however lower suspicion for DVT given known
anticoagulation. Plan for admission for IV diuresis.
Discharge Plan
Departure
Patient Disposition: Admit
Date of Disposition: 05/20/24
Time of Disposition: 16:32
Presentation/result/management discussed w/ accepting MD/DO: Hospitalist
Discharge Problem:
Acute exacerbation of CHF (congestive heart failure), Edema of both lower legs
Prescriptions:
No Action
venlafaxine 75 MG capsule,extended release 24hr
75 mg PO DAILY
prednisone 5 MG tablet
5 mg PO QPM
Patient Comments:
cholecalciferol (vitamin D3) 1,000 UNITS tablet
1,000 units PO QPM
ezetimibe 10 MG tablet
10 mg PO QPM
therapeutic multivitamin Tablet
1 tab PO QPM
pantoprazole 40 mg Tablet,Delayed Release (Dr/Ec)
40 mg PO DAILY Qty: 30 11RF
Eliquis 2.5 mg Tablet
2.5 mg PO BID Qty: 60 11RF
isosorbide mononitrate 30 mg Tablet Extended Release 24 Hr
30 mg PO DAILY 30 Days Qty: 30 0RF
furosemide 40 mg Tablet
40 mg PO BID
potassium chloride 20 mEq tablet,ER particles/crystals
20 meq PO DAILY
Patient Comments:
05/20/24: Patient supposed to take 2 tablets, but they are too big so she only takes 1
Glucosamine Chondroitin PLUS [id number] mg Capsule
1 cap PO BID
carvedilol 6.25 mg Tablet
6.25 mg PO BID
levothyroxine 125 mcg Tablet
125 mcg PO DAILY
atorvastatin 40 mg tablet
40 mg PO DAILY
Referrals:
Wilbert Figueroa MD [Family Provider] -
Interventions
Interventions:
*Risk Screen - Suicide Last Done: 05/20/24 13:10
*General Assessment Last Done: 05/20/24 13:10
*Neglect/Abuse Screening Last Done: 05/20/24 13:10
ED- Cardiac Assessment Last Done: 05/20/24 13:25
ED- Pulmonary Assessment Last Done: 05/20/24 13:25
ED-Skin Assessment Last Done: 05/20/24 13:25
Discharge Date and Time
Print Language: PARAGUAYAN
[2024-05-20 15:18] LABS: Troponin I 0.059 ng/ml
[2024-05-20] MEDS: LASIX 40 MG IV (16:50)
[2024-05-20 17:09] LABS: Troponin I 0.046 ng/ml
--- NOTE | 2024-05-20 17:15 | HPS.HSE ---
Family Physician
-
Family Physician: Wilbert Figueroa MD
Chief Complaint
-
B/L le edema
History of Present Illness
89-year-old female with history of CHF, CAD, hypertension, anemia presenting to the emergency department due to lower leg swelling and worsening shortness of breath for one weeks. Patient states that over the past week she has developed significant
swelling of her bilateral lower legs. . They are weeping a clear liquid and she wakes up with her sheets soaked from the drainage. Since yesterday she states that the left leg seemed red, warm, and mildly tender. Patient also reports increasing
shortness of breath with very minimal exertion over the past 2 days. She is on 2 L oxygen NC at her baseline. denied chest pain, fever, chills, runny nose, congestion, cough. denied abdominal pain,n,v,d. denied dysuria or hematuria.
patient underwent thoracentesis on October, since then she had thoracentesis twice. the last one was two weeks ago.
patient received Lasix in ER. admitting for further management.
Medical History
Past Medical History
Past Medical History: Reports Other
Additional Past Medical History:
Aortic valve stenosis
-Osteoarthritis
Residual lung disease
Coronary artery disease
PMR
Diastolic heart failure
Rheumatoid arthritis
Obstructive sleep apnea
Pulmonary hypertension
GERD
Past Surgical History: Reports Other
Additional Past Surgical History:
Coronary artery stent
Bilateral knee replacement
Bilateral hip replacement
Back surgery
Cholecystectomy
Social History
Tobacco: Former Smoker
Alcohol: None
Drug: None
Family History
Family History: Not pertinent
Allergies / Home Medications
Allergies reflects when Allergies were last updated in [employer].
Home Medications with original date entered in [employer]
Allergy/Medication List:
Allergies
Allergy/AdvReac Type Severity Reaction Status Date / Time
hydroxychloroquine sulfate Allergy Rash Verified 04/17/24 18:31
[From Plaquenil]
Penicillins Allergy Itching Verified 04/17/24 18:31
Home Medications
venlafaxine 75 mg capsule,extended release 24 hr 75 mg PO DAILY Depression 12/09/17
prednisone 5 mg tablet 5 mg PO QPM Anti-Inflammatory 01/05/18
cholecalciferol (vitamin D3) 25 mcg (1,000 unit) tablet 1,000 units PO QPM Supplement 08/11/18
ezetimibe 10 mg tablet 10 mg PO QPM High cholesterol 08/11/18
therapeutic multivitamin 1 tab PO QPM Supplement 06/03/23
apixaban 2.5 mg tablet (Eliquis) 2.5 mg PO BID Blood clot prevention/tx #60 tabs 09/11/23
pantoprazole 40 mg tablet,delayed release 40 mg PO DAILY Gastrointestinal issue #30 tabs 09/11/23
isosorbide mononitrate 30 mg tablet,extended release 24 hr 30 mg PO DAILY 30 days #30 tabs 10/06/23
furosemide 40 mg tablet 40 mg PO BID Fluid Retention/Swelling 11/12/23
potassium chloride 20 mEq tablet,extended release(part/cryst) 20 meq PO DAILY Electrolyte Repletion 11/12/23
rljl-tbyxv-xz3-xjw-jpu-tepx-sterols 375 mg-100 mg-36 mg-54 mg capsule (Glucosamine Chondroitin PLUS) 1 cap PO BID Supplement 11/13/23
atorvastatin 40 mg tablet 40 mg PO DAILY High cholesterol 05/20/24
carvedilol 6.25 mg tablet 6.25 mg PO BID 05/20/24
levothyroxine 125 mcg tablet 125 mcg PO DAILY 05/20/24
Review of Systems
-
Constitutional: Reports No Symptoms
EENT: Reports No Symptoms
Respiratory: Reports Trouble Breathing
Cardiac: Reports No Symptoms
Abdomen/GI: Reports No Symptoms
: Reports No Symptoms
Musculoskeletal: Reports Edema (LE edema)
Skin: Reports No Symptoms
Neurological: Reports No Symptoms
Endocrine: Reports No Symptoms
Hematologic/Lymphatic: Reports No Symptoms
Psych: Reports No Symptoms
Physical Exam
Vital Signs
Vital Signs
Temp Pulse Resp BP Pulse Ox
97.6 F 108 20 130/59 96
05/20/24 13:10 05/20/24 17:00 05/20/24 17:00 05/20/24 17:00 05/20/24 17:00
Physical Exam
General: Well Developed, Well Nourished and No Apparent Distress
HEENT: NormoCephalic, Moist mucous membranes and Atraumatic
Respiratory: Crackles
Cardiac: S1/S2 and Regular Rhythm; No Murmur or Rub
GI: Soft, Non Tender, Non Distended and Normal Bowel Sounds; No Organomegaly
Rectal: Deferred by Provider
Musculoskeletal: No Clubbing, No Cyanosis and Other (LE edema)
Skin: No Rash
Neuro: Nonfocal/grossly intact
Psych: Calm
Laboratory Results
-
05/20/24 13:19
05/20/24 13:19
Laboratory Results
Total Bilirubin 0.8 mg/dl (0.2-1.3) 05/20/24 13:19
AST 62 U/L (14-36) H 05/20/24 13:19
ALT 57 U/L (0-35) H 05/20/24 13:19
Alkaline Phosphatase 80 U/L (38-126) 05/20/24 13:19
Troponin I 0.046 ng/ml H* 05/20/24 16:30
Data Reviewed
-
Diagnostic Radiology: Report Reviewed by me
Lab Data: Labs Reviewed by me
Impression/Plan
-
# CHF exacerbation
-BNP down to 500
-IV Lasix continued
-Strict RAMÍREZ
-Daily weight
-Fluid restriction
Cardiology consult
-Chest x-ray with impression of Cardiomegaly with mild pulmonary edema and small left pleural effusion with compressive atelectasis in the lower left lung
# Elevated Trop likely demand ischemia from CHF
-Continue to trend Trope
-no c/of chest pain
-EKg with atrial fib with RVR
#atrial fib with RVR
-HR in 100's
-Coreg continue with hold parameters
-Eliquis continued
# Anemia of chronic disease
-Hemoglobin 9.9
-No active bleeding
Continue to monitor
# Hypokalemia
-K3.4
-Will supplement with oral KCl
# Chronic kidney disease stage IIIb
-Creatinine 1.7
-Continue to monitor
# Chronic transaminitis
-continue to monitor
-AST 62, ALT 57
# Atrial for with RVR
-Coreg continued with hold parameter
-eliquis continued
# Right radial artery pseudoaneurysm
#CAD s/p PCI on 09/03/23
#HLD
-Zetia continued
# Essential hypertension
Isosorbide continued
#Hypothyroidism
-Levothyroxine continued
# GERD
-PPI continued
#PMR/rheumatoid arthritis
-Prednisone continued
# Depression
-venlafaxine continued
#DVT ppx - on Eliquis
#DNR
--- NOTE | 2024-05-20 18:15 | W.PN.UPDATE ---
Update Note
Progress Note Update
This is an addendum to the H&P written by Siria Muhammad on 05/20/2024. Patient seen and examined independently with [employer].
89-year-old female past medical history of HFrEF, CAD, hypertension, anemia here with increased lower extremity edema and ongoing shortness of breath. No chest pain.
Patient arrives in A-fib with RVR with rates up to 110. Labs show chronic kidney disease renal function creatinine stable at 1.7. Mild transaminitis on labs.
Chest x-ray shows cardiomegaly with mild pulmonary edema and small left pleural effusion with compressive atelectasis in the left lower lung. Cardiac BNP of 10,000. Slight troponin elevation of 0.046.
Presentation consistent with acute CHF exacerbation. 40 IV Lasix twice daily. Cardiology consulted.
Patient also with right eye erythema which is painless without vision loss secondary to subconjunctival hemorrhage. No trauma history.
[2024-05-20] MEDS: KCL ELIXIR 40 MEQ PO (18:33)
[2024-05-20] MEDS: ZETIA 10 MG PO (20:43)
[2024-05-20] MEDS: DELTASONE 5 MG PO (20:43)
[2024-05-20] MEDS: ELIQUIS 2.5 MG PO (20:43)
[2024-05-20] MEDS: COREG 6.25 MG PO (20:43)
[2024-05-20 21:23] LABS: Troponin I 0.041 ng/ml
[2024-05-21 03:18] VITALS: BP 107/69
[2024-05-21 03:45] LABS: Troponin I 0.044 ng/ml
[2024-05-21 04:00] VITALS: BMI 28.3
[2024-05-21] MEDS: SYNTHROID 125 MCG PO (06:22)
[2024-05-21 07:00] VITALS: BP 139/81
[2024-05-21 07:02] LABS: Hematocrit 30.4 % (37.0-47.0); Hemoglobin 9.2 g/dL (12.0-16.0); Mean Corp Hgb Conc. 30.3 g/dL (33.0-37.0); Mean Corpuscular Hgb 29.3 pg (27.0-31.0); Mean Corpuscular Volume 96.8 fL (81.0-99.0); Mean Platelet Volume 9.7 fL (7.4-10.4); Platelet Count 161 10^3/uL (130-400); Red Blood Cell Count 3.14 10^6/uL (4.20-5.40); Red Cell Dist. Width 15.9 % (11.5-14.5); White Blood Cell Count 6.4 10^3/uL (4.8-10.8)
[2024-05-21 07:45] LABS: ALT (SGPT) 49 U/L (0-35); AST (SGOT) 48 U/L (14-36); Albumin 3.1 g/dl (3.5-5.0); Alkaline Phosphatase 86 U/L (38-126); Blood Urea Nitrogen 45 mg/dl (7-17); Calcium 8.3 mg/dl (8.4-10.2); Carbon Dioxide 31 mmol/L (22-30); Chloride 104 mmol/L (98-107); Direct Bilirubin 0.4 mg/dl (0.0-0.4); Estimated Creatinine Clearance 21 ml/min; Glucose 83 mg/dl (70-99); HDL Cholesterol 54 mg/dl; LDL Cholesterol, Calculated 25 mg/dl; Magnesium 2.4 mg/dl (1.6-2.3); Potassium 3.8 mmol/L (3.5-5.1); Sodium 145 mmol/L (135-145); Total Bilirubin 0.8 mg/dl (0.2-1.3); Total Cholesterol 88 mg/dl (50-199); Total Protein 5.6 g/dl (6.3-8.2); Triglyceride 49 mg/dl (10-149); Very Low Density Lipoprotein 9 mg/dl (0-30); eGFR 28.67
[2024-05-21 08:15] LABS: TSH Reflex To Free T4 0.52 uIU/ml (0.47-4.68)
--- NOTE | 2024-05-21 08:19 | CON.CAR ---
Addendum entered and electronically signed by Thaddeus Santos MD 05/21/24 13:12:
I saw and examined the patient.
The [employer]ELT TRIMMING MACHINE OPERATOR or PA's note was reviewed and I agree with the note.
Comment: General: Well developed, well nourished in NAD.
Neck: Supple, no JVD, HJR, carotids +2 B/L, no bruits bilaterally.
Skin: Ecchymoses right eye
Heart: Non displaced PMI, RRR, no murmurs, No S3, S4, no rubs.
Lungs: Scattered rhonchi at the bases
Extremities: Chronic venous stasis change
Neuro: Grossly nonfocal, awake, alert and oriented x3.
Leigh has a history of atrial flutter, A-fib, CAD with multiple prior stents most renal pole stent in August 2023, recurrent left pleural effusions requiring thoracentesis, chronic systolic CHF with cardiomyopathy and ejection fraction of
30-35%, interstitial lung disease, polymyalgia rheumatica, aortic stenosis, CKD 3B. She presented with weeping from her legs and thought she had cellulitis. She also has increasing short of breath over the past week. She is admitted with acute
systolic CHF. She feels her edema has improved since admission.
Will continue IV diuresis and follow BUN/creatinine closely. Will check echocardiogram. She remains in A-fib with mildly increased heart rates. Note amiodarone had digoxin had been stopped in the past due to patient complaining of multiple
medications.
Original Note:
Consultation
Consultation Request
Date/Time Consultation Requested: 05/21/2024
Date/Time Consultation Performed: 05/21/2024
Requesting Provider: Dr. Townsend
Performing Provider: Kathleen Kelley PA-C for Dr. Santos
Reason for Consultation: CHF
Medical History
-
History of Present Illness:
HPI: Leigh is an 89 year old female with PMH atrial flutter, CAD with multiple prior stents, most recently PCI of the LAD 08/2023, recurrent left pleural effusion requiring thoracenteses, chronic HFrEF, cardiomyopathy, CKD 3B, hypertension, ,
polymyalgia rheumatica, hyperlipidemia with statin intolerance, ILD, hypothyroidism, and fibromyalgia. Presents to ER for evaluation of worsening shortness of breath with exertion and increased edema. She states for the past 1 week she has had
worsening shortness of breath only when exerting herself. She has no shortness of breath at rest and denies any orthopnea or PND. She has also noted increasing LE edema especially of her left lower extremity with associated weeping. She states
leg started to become red and tender to touch, prompting ER evaluation. In ER, lower extremity ultrasound negative for DVT. She was found to be in acute heart failure with proBNP 10,500 and chest x-ray with pulmonary edema. She was started on IV
Lasix 40 mg twice daily and was admitted for further workup and evaluation. She notes some improvement in her lower extremity edema. She denies any chest pain, palpitations, or dizziness.
PMH:
Typical atrial flutter
s/p successful CV 09/08/23
recurrent Afib/flutter 09/09/23
Chronic Eliquis AC
CAD
PCI LAD 2004 ([facility])
PCI RCA 07/2010 ([facility])
s/p OM stent 10/08/17 with residual 40% stenosis of mid LAD and 50-60% stenosis of prox PDA
s/p 2.5 mm Xience to mid LAD 09/04/23
Recurrent L pleural effusion
s/p thoracentesis w/ 900 cc removed 09/29/2023
s/p thoracentesis w/ 900 cc removed 04/06/2024
s/p thoracentesis w/ 800 cc removed 05/04/2024
Chronic HFrEF
Cardiomyopathy, EF 30-35% by echo 09/2023
CKD 3b
HTN
Mild peak/mean 22/13 mmHg and TAM 1.4 cm sq
Psoriatic arthritis
Polymyalgia rheumatica
Hyperlipidemia
h/o statin intolerance
Interstitial lung disease on chronic O2 at night
Hypothyroidism
Anxiety
Fibromyalgia
Hx cervical radiculopathy
Hx left rotator cuff tear
Urethral stone w/ hydronephrosis 01/2018
Shingles 09/2022
Syncope 09/2022 in setting of GI illness/dehydration
Chronic pain syndrome on oxycodone daily
Past Medical History
Past Medical History: Other (See HPI)
Past Surgical History: Other (See HPI)
Social History
Tobacco: Former Smoker
Alcohol: None
Drug: None
Living: Alone
Employment: Retired
Family History
Family History: Reviewed & Not Pertinent
Allergies / Home Medications
Allergy/AdvReac Type Severity Reaction Status Date / Time
hydroxychloroquine sulfate Allergy Rash Verified 04/17/24 18:31
[From Plaquenil]
Penicillins Allergy Itching Verified 04/17/24 18:31
�Medication �Instructions �Recorded �Confirmed �Type
venlafaxine 75 mg capsule,extended 75 mg PO DAILY Depression 12/09/17 05/20/24 History
release 24 hr
prednisone 5 mg tablet 5 mg PO QPM Anti-Inflammatory 01/05/18 05/20/24 History
cholecalciferol (vitamin D3) 25 1,000 units PO QPM Supplement 08/11/18 05/20/24 History
mcg (1,000 unit) tablet
ezetimibe 10 mg tablet 10 mg PO QPM High cholesterol 08/11/18 05/20/24 History
therapeutic multivitamin 1 tab PO QPM Supplement 06/03/23 05/20/24 History
apixaban 2.5 mg tablet (Eliquis) 2.5 mg PO BID Blood clot 09/11/23 05/20/24 Rx
prevention/tx #60 tabs
pantoprazole 40 mg tablet,delayed 40 mg PO DAILY Gastrointestinal 09/11/23 05/20/24 Rx
release issue #30 tabs
isosorbide mononitrate 30 mg 30 mg PO DAILY 30 days #30 tabs 10/06/23 05/20/24 Rx
tablet,extended release 24 hr
furosemide 40 mg tablet 40 mg PO BID Fluid 11/12/23 05/20/24 History
Retention/Swelling
potassium chloride 20 mEq 20 meq PO DAILY Electrolyte 11/12/23 05/20/24 History
tablet,extended release(part/cryst) Repletion
lftn-ixlpi-qz9-tnp-wja-gibz-sterols 1 cap PO BID Supplement 11/13/23 05/20/24 History
375 mg-100 mg-36 mg-54 mg capsule
(Glucosamine Chondroitin PLUS)
atorvastatin 40 mg tablet 40 mg PO DAILY High cholesterol 05/20/24 05/20/24 History
carvedilol 6.25 mg tablet 6.25 mg PO BID 05/20/24 05/20/24 History
levothyroxine 125 mcg tablet 125 mcg PO DAILY 05/20/24 05/20/24 History
Review of Systems
-
History Source: Patient
All other systems: Negative unless noted
Physical Exam
Vital Signs
Temp Pulse Resp BP Pulse Ox
98.2 F 103 18 107/69 99
05/21/24 03:18 05/21/24 03:18 05/21/24 03:18 05/21/24 03:18 05/21/24 03:18
Lab Results
05/21/24 05:59
05/21/24 05:59
Troponin I 0.044 ng/ml H* 05/21/24 02:41
Qvh-K-Ojvehjwwqpj Pept 82644 pg/ml 05/20/24 13:19
Physical Exam
General: Well Developed, Well Nourished and No Apparent Distress
HEENT: Normocephalic, Anicteric and Moist Mucous Membranes
Respiratory: Crackles and Non Labored Respirations
Cardiac: S1/S2 and Irregular Rhythm
Musculoskeletal: No Clubbing, No Cyanosis and Edema
Skin: Warm and Dry
Neuro: AO x 3 and Nonfocal/Grossly Intact
Psych: Calm
Impression / Plan
-
PCP: Dr. Figueroa
Cardiology: Dr. Santos
Impression:
Presented w/ edema, SOB
Acute on chronic HFrEF
Nonischemic myocardial injury
Typical atrial flutter
Persistent atrial fibrillation w/ RVR
s/p successful CV 09/08/23
recurrent Afib/flutter 09/09/23
Chronic Eliquis AC
CAD
PCI LAD 2004 ([facility])
PCI RCA 07/2010 ([facility])
s/p OM stent 10/08/17 with residual 40% stenosis of mid LAD and 50-60% stenosis of prox PDA
s/p 2.5 mm Xience to mid LAD 09/04/23
Recurrent L pleural effusion
s/p thoracentesis w/ 900 cc removed 09/29/2023
s/p thoracentesis w/ 900 cc removed 04/06/2024
s/p thoracentesis w/ 800 cc removed 05/04/2024
Cardiomyopathy, EF 30-35% by echo 09/2023
CKD 3b
HTN
Mild peak/mean 22/13 mmHg and TAM 1.4 cm sq
Psoriatic arthritis
Polymyalgia rheumatica
Hyperlipidemia
h/o statin intolerance
Interstitial lung disease on chronic O2 at night
Hypothyroidism
Anxiety
Fibromyalgia
Hx cervical radiculopathy
Hx left rotator cuff tear
R radial pseudoaneurysm s/p repair 11/13/2023
Urethral stone w/ hydronephrosis 01/2018
Shingles 09/2022
Syncope 09/2022 in setting of GI illness/dehydration
Chronic pain syndrome on oxycodone daily
Echo 01/06/18:�Mild LVH, EF 50-55% possible lateral hypokinesis, normal RV, severely dilated LA, Mild to moderate MR, Mild aortic stenosis, peak/mean gradient 29/16, aortic valve area 1.6 cm�, Mild TR, pulmonary pressure 51-56 mmHg
Echo October 2018: Ejection fraction 60-65 percent, mild MR, mild , mild-moderate AI�������
Echo 07/2020: EF 60-65%, mild with MPG 14 mm Hg, TAM 1.7 cm2.
Echo 03/04/23:�EF 55-60% with mild MR, mild , aortic root 4 cm, trace pericardial effusion
Echo 06/04/23: EF 55 to 60%, mild concentric LVH, mild mitral stenosis with mean transmitral gradient 6 mmHg, moderate MR, mild peak/mean gradient 22/13 mmHg and TAM 1.4 cm sq, trace TR with pulmonary artery systolic pressure 26 mmHg mildly
dilated aortic root
Echo 08/28/23: EF 40-45%, pleural effusion, not assessed
JIAN 09/08/23: EF 40-45%, mod to sev MR, evidence of
Echo 09/26/23: EF 30-35%, mod MR, mild AI, aortic sclerosis no stenosis, PASP 45 mmHg
Echo 05/21/2024: Study pending
Plan:
-Presented with SOB and increased LE edema. Admitted with acute heart failure exacerbation.
-LE US negative for DVT. Edema improving w/ diuresis.
-Continue IV lasix 40mg BID. Creat stable at 1.7.
-Follow daily weights, I&Os.
-Echo 09/2023 with EF 30-35%. Repeat echo pending 05/21.
-Continue Coreg and Imdur. Previously on hydralazine, however stopped due to hypotension. No MARIANO/ARB/aldosterone antagonist due to renal function.
-BP stable this admission thus far, however HR has been somewhat elevated. May consider increasing Coreg for BP and HR control.
-Reviewed EKG, afib w/ HR 104 bpm. Remains in persistent atrial fibrillation. Previously on digoxin and amiodarone. Stopped 02/2024 in an attempt to reduce medications.
-Continue Eliquis 2.5mg BID for anticoagulation (creat, age). Plavix changed to aspirin 81mg daily at recent OV due to spontaneous scleral hemorrhages and nose bleeds.
-K and mag stable. Continue KCl 20 meq daily
-TSH 0.52, continue Synthroid.
-Elevated troponin noted, peaking at 0.059 and trending down thereafter. Suspect nonischemic myocardial injury in the setting of acute heart failure exacerbation.
-Continue lipitor 40mg daily and zetia 10mg daily. LDL 25
-On 2L NC, wean as able.
HPI: Leigh is an 89 year old female with PMH atrial flutter, CAD with multiple prior stents, most recently PCI of the LAD 08/2023, recurrent left pleural effusion requiring thoracenteses, chronic HFrEF, cardiomyopathy, CKD 3B, hypertension, ,
polymyalgia rheumatica, hyperlipidemia with statin intolerance, ILD, hypothyroidism, and fibromyalgia. Presents to ER for evaluation of worsening shortness of breath with exertion and increased edema. She states for the past 1 week she has had
worsening shortness of breath only when exerting herself. She has no shortness of breath at rest and denies any orthopnea or PND. She has also noted increasing LE edema especially of her left lower extremity with associated weeping. She states
leg started to become red and tender to touch, prompting ER evaluation. In ER, lower extremity ultrasound negative for DVT. She was found to be in acute heart failure with proBNP 10,500 and chest x-ray with pulmonary edema. She was started on IV
Lasix 40 mg twice daily and was admitted for further workup and evaluation. She notes some improvement in her lower extremity edema. She denies any chest pain, palpitations, or dizziness.
Data Reviewed
-
EKG: Tracing Personally Visualized and interpreted
Radiology: Report Reviewed by me
Labs: Labs Reviewed by me
Old Records: Reviewed
[2024-05-21] MEDS: ELIQUIS 2.5 MG PO ×2 (09:51→20:58)
[2024-05-21] MEDS: EFFEXOR XR 75 MG PO (09:51)
[2024-05-21] MEDS: COREG 6.25 MG PO ×2 (09:51→20:59)
[2024-05-21] MEDS: IMDUR (EXTENDED RELEASE) 30 MG PO (09:51)
[2024-05-21] MEDS: LIPITOR 40 MG PO (09:51)
[2024-05-21] MEDS: PROTONIX 40 MG PO (09:51)
[2024-05-21] MEDS: KCL 20 MEQ PO (09:52)
[2024-05-21] MEDS: LASIX 40 MG IV ×2 (10:12→16:15)
--- NOTE | 2024-05-21 10:59 | W.PN.HOSP.TC ---
Today's Communication/Plan
-
IV lasix
trend bmp
cards recs
monitor HR
Assessment / Plan
Assessment / Plan
# Acute on chronic systolic and diastolic heart failure exacerbation likely secondary to noncompliance with fluid restriction
-IV Lasix 40mg BID
-Strict RAMÍREZ
-Daily weight
-Fluid restriction. Counseled on compliance.
-Chest x-ray with impression of Cardiomegaly with mild pulmonary edema and small left pleural effusion with compressive atelectasis in the lower left lung
-Continue with carvedilol, Zetia, Imdur. Not on MARIANO or ARB as with CKD.
-Repeat ECHO
-Cardiology consult
# Elevated troponin likely secondary to nonischemic myocardial injury
# CAD s/p PCI on 09/03/23
-no c/of chest pain
# Paroxysmal atrial fib with RVR
-Coreg continue with hold parameters. may need to uptitrate dose if BP can tolerate it
-used to be on amiodarone. not on anymore.
-Eliquis continued
# Anemia of chronic disease
-Hemoglobin 9.9
-No active bleeding
Continue to monitor
# Hypokalemia
-replete/monitor
# Chronic kidney disease stage IIIb
-Creatinine 1.7
-Continue to monitor
-follows with Dr. Muñoz
# Chronic hypoxic respiratory failure on 2 L
#History of ILD
# Chronic transaminitis
-continue to monitor
# Right radial artery pseudoaneurysm
-s/p repair by vascular surgery
#HLD
-Zetia continued
# Essential hypertension
Isosorbide continued
#Hypothyroidism
-Levothyroxine continued
# GERD
-PPI continued
#PMR/rheumatoid arthritis
-Prednisone continued
# Depression/anxiety
-venlafaxine continued
#DVT ppx - on Eliquis
#DNR
Anticipated Discharge: > 48 hours
Subjective/Interval History
-
Date of Service: May 21, 2024
States she was drinking increasing amount of water at home and was noncompliant with fluid restriction
Objective Data
-
Labs:
Laboratory Results
05/21/24
05:59
WBC 6.4
Hgb 9.2 L
Hct 30.4 L
Plt Count 161
Sodium 145
Potassium 3.8
Chloride 104
Carbon Dioxide 31 H
BUN 45 H
Creatinine 1.7 H
Glucose 83
Calcium 8.3 L
Total Bilirubin 0.8
AST 48 H
ALT 49 H
Alkaline Phosphatase 86
Vital Signs:
Vital Signs
Temp Pulse Resp BP Pulse Ox
97.8 F 117 18 139/81 100
05/21/24 07:00 05/21/24 10:12 05/21/24 07:00 05/21/24 10:12 05/21/24 07:00
I&O
05/20/24 05/21/24 05/22/24
06:59 06:59 06:59
Intake Total 240 / 240
Output Total 300 / 300
Balance -60 / -60
Physical Exam
-
General: Well Developed and No Apparent Distress
HEENT: Normocephalic, Atraumatic, Moist Mucous Membranes and Oxygen
Respiratory: Decreased Breath Sounds
Cardiac: Regular Rhythm and S1/S2; Negative Murmur, Rub or Gallop
GI: Soft, Nontender, Nondistended and Normal Bowel Sounds; Negative Organomegaly
Rectal: Deferred by Provider
Musculoskeletal: No Clubbing, No Cyanosis, Edema, Right Lower Extrem (Chronic venous stasis changes) and Edema, Left Lower Extrem (Chronic venous stasis changes)
Skin: Negative Rash
Neuro: Awake, No Motor Deficits and Nonfocal/Grossly Intact
Data Reviewed
-
Total Time Spent with Patient (in minutes): 52
[2024-05-21 11:37] VITALS: BP 128/62
[2024-05-21] MEDS: LOW STRENGTH ASPIRIN 81 MG PO (13:11)
[2024-05-21 15:18] VITALS: BP 138/70
--- NOTE | 2024-05-21 17:16 | CM ---
Alert awake oriented patient who lives alone in a 1 story home with 1 steps to enter . She is independent in [facility].She does not drive .She uses a walker. She has oxygen from [employer].
Had [facility] in past . [facility] hx
Pharmacy [facility]
PCP Dr Sunil Figueroa
PLAN Will need PT OT for dc planning.
[2024-05-21] MEDS: DELTASONE 5 MG PO (18:34)
[2024-05-21] MEDS: ZETIA 10 MG PO (18:34)
[2024-05-21 19:00] VITALS: BP 111/52
[2024-05-21 23:32] VITALS: BP 117/66
[2024-05-22] VITALS (9 sets, daily range): BP systolic 92–146; BP diastolic 56–86; PULSE 94–107; O2SAT 96; BMI 28.2
[2024-05-22] MEDS: SYNTHROID 125 MCG PO (05:38)
[2024-05-22 05:53] LABS: Hematocrit 30.4 % (37.0-47.0); Mean Corp Hgb Conc. 29.6 g/dL (33.0-37.0); Mean Corpuscular Hgb 28.9 pg (27.0-31.0); Mean Corpuscular Volume 97.7 fL (81.0-99.0); Mean Platelet Volume 10.2 fL (7.4-10.4); Platelet Count 181 10^3/uL (130-400); Red Blood Cell Count 3.11 10^6/uL (4.20-5.40); Red Cell Dist. Width 15.7 % (11.5-14.5); White Blood Cell Count 6.6 10^3/uL (4.8-10.8)
[2024-05-22 06:06] LABS: Blood Urea Nitrogen 49 mg/dl (7-17); Calcium 8.3 mg/dl (8.4-10.2); Carbon Dioxide 31 mmol/L (22-30); Chloride 102 mmol/L (98-107); Estimated Creatinine Clearance 21 ml/min; Glucose 106 mg/dl (70-99); Potassium 4.1 mmol/L (3.5-5.1); Sodium 144 mmol/L (135-145); eGFR 28.67
[2024-05-22] MEDS: KCL 20 MEQ PO (08:52)
[2024-05-22] MEDS: EFFEXOR XR 75 MG PO (08:52)
[2024-05-22] MEDS: PROTONIX 40 MG PO (08:52)
[2024-05-22] MEDS: LIPITOR 40 MG PO (08:52)
[2024-05-22] MEDS: IMDUR (EXTENDED RELEASE) 30 MG PO (08:53)
[2024-05-22] MEDS: ELIQUIS 2.5 MG PO ×2 (08:53→20:03)
[2024-05-22] MEDS: COREG 6.25 MG PO ×2 (08:53→20:03)
[2024-05-22] MEDS: LOW STRENGTH ASPIRIN 81 MG PO (08:53)
[2024-05-22] MEDS: LASIX 40 MG IV ×2 (08:55→17:49)
--- NOTE | 2024-05-22 09:27 | W.PN.CARDCBS ---
Today's Communication / Plan
-
Continue IV Lasix and follow renal function closely
A-fib with rapid rates at time but overall rate control is reasonable
Continue Eliquis
Impression / Plan
-
PCP: Dr. Figueroa
Cardiology: Dr. Santos
Impression:
Presented w/ edema, SOB
Acute on chronic HFrEF
Nonischemic myocardial injury
Typical atrial flutter
Persistent atrial fibrillation w/ RVR
s/p successful CV 09/08/23
recurrent Afib/flutter 09/09/23
Chronic Eliquis AC
CAD
PCI LAD 2004 ([facility])
PCI RCA 07/2010 ([facility])
s/p OM stent 10/08/17 with residual 40% stenosis of mid LAD and 50-60% stenosis of prox PDA
s/p 2.5 mm Xience to mid LAD 09/04/23
Recurrent L pleural effusion
s/p thoracentesis w/ 900 cc removed 09/29/2023
s/p thoracentesis w/ 900 cc removed 04/06/2024
s/p thoracentesis w/ 800 cc removed 05/04/2024
Cardiomyopathy, EF 30-35% by echo 09/2023
CKD 3b
HTN
Mild peak/mean 22/13 mmHg and TAM 1.4 cm sq
Psoriatic arthritis
Polymyalgia rheumatica
Hyperlipidemia
h/o statin intolerance
Interstitial lung disease on chronic O2 at night
Hypothyroidism
Anxiety
Fibromyalgia
Hx cervical radiculopathy
Hx left rotator cuff tear
R radial pseudoaneurysm s/p repair 11/13/2023
Urethral stone w/ hydronephrosis 01/2018
Shingles 09/2022
Syncope 09/2022 in setting of GI illness/dehydration
Chronic pain syndrome on oxycodone daily
Echo 01/06/18:�Mild LVH, EF 50-55% possible lateral hypokinesis, normal RV, severely dilated LA, Mild to moderate MR, Mild aortic stenosis, peak/mean gradient 29/16, aortic valve area 1.6 cm�, Mild TR, pulmonary pressure 51-56 mmHg
Echo October 2018: Ejection fraction 60-65 percent, mild MR, mild , mild-moderate AI�������
Echo 07/2020: EF 60-65%, mild with MPG 14 mm Hg, TAM 1.7 cm2.
Echo 03/04/23:�EF 55-60% with mild MR, mild , aortic root 4 cm, trace pericardial effusion
Echo 06/04/23: EF 55 to 60%, mild concentric LVH, mild mitral stenosis with mean transmitral gradient 6 mmHg, moderate MR, mild peak/mean gradient 22/13 mmHg and TAM 1.4 cm sq, trace TR with pulmonary artery systolic pressure 26 mmHg mildly
dilated aortic root
Echo 08/28/23: EF 40-45%, pleural effusion, not assessed
JIAN 09/08/23: EF 40-45%, mod to sev MR, evidence of
Echo 09/26/23: EF 30-35%, mod MR, mild AI, aortic sclerosis no stenosis, PASP 45 mmHg
Echo 05/21/2024: Ejection fraction 35 to 40%, moderate MR, mild to moderate mitral stenosis with mean gradient of 8 mmHg, mild to moderate AAS with mean gradient of 13 mmHg aortic valve area 1.2 cm�, moderate to severe TR with PA systolic pressure
of 50-55 mmHg
Plan:
Still has some edema. Diuresis may have plateaued but reluctant to increase diuretics with creatinine of 1.7.
Will continue IV Lasix.
Echocardiogram 05/21/2024 similar to prior study.
Continue Coreg and Imdur. Previously on hydralazine, however stopped due to hypotension. No MARIANO/ARB/aldosterone antagonist due to renal function.
Heart rate control suboptimal at times but reasonable. Continue Coreg. Of note amiodarone and digoxin have been stopped due to patient complaint of multiple medication.
Continue Eliquis 2.5mg BID for anticoagulation (creat, age). Plavix changed to aspirin 81mg daily at recent OV due to spontaneous scleral hemorrhages and nose bleeds.
She was on oxygen at home and may not be able to get off oxygen during this admission
HPI: Leigh is an 89 year old female with PMH atrial flutter, CAD with multiple prior stents, most recently PCI of the LAD 08/2023, recurrent left pleural effusion requiring thoracenteses, chronic HFrEF, cardiomyopathy, CKD 3B, hypertension, ,
polymyalgia rheumatica, hyperlipidemia with statin intolerance, ILD, hypothyroidism, and fibromyalgia. Presents to ER for evaluation of worsening shortness of breath with exertion and increased edema. She states for the past 1 week she has had
worsening shortness of breath only when exerting herself. She has no shortness of breath at rest and denies any orthopnea or PND. She has also noted increasing LE edema especially of her left lower extremity with associated weeping. She states
leg started to become red and tender to touch, prompting ER evaluation. In ER, lower extremity ultrasound negative for DVT. She was found to be in acute heart failure with proBNP 10,500 and chest x-ray with pulmonary edema. She was started on IV
Lasix 40 mg twice daily and was admitted for further workup and evaluation. She notes some improvement in her lower extremity edema. She denies any chest pain, palpitations, or dizziness.
Progress Note - Buffet Runner
Subjective
Date of Service: May 22, 2024
Complains of bleeding from her skin. Complains of left lower extremity edema
Objective
Labs:
05/22/24 04:48
05/22/24 04:48
Labs
Hgb 9.0 g/dL (12.0-16.0) L 05/22/24 04:48
Hct 30.4 % (37.0-47.0) L 05/22/24 04:48
Plt Count 181 10^3/uL (130-400) 05/22/24 04:48
Sodium 144 mmol/L (135-145) 05/22/24 04:48
Potassium 4.1 mmol/L (3.5-5.1) 05/22/24 04:48
BUN 49 mg/dl (7-17) H 05/22/24 04:48
Creatinine 1.7 mg/dL (0.6-1.0) H 05/22/24 04:48
Glucose 106 mg/dl (70-99) H 05/22/24 04:48
Troponins
05/20/24 05/20/24 05/20/24
13:19 16:30 20:50
Troponin I 0.059 H* 0.046 H* 0.041 H*
05/21/24
02:41
Troponin I 0.044 H*
Vital Signs and I&O:
Vital Signs
Temp Pulse Resp BP Pulse Ox
97.5 F 117 16 138/70 100
05/22/24 07:00 05/22/24 08:53 05/22/24 07:00 05/22/24 08:53 05/22/24 07:00
Vital Signs
Temp Pulse Resp BP Pulse Ox
97.5 F 117 16 138/70 100
05/22/24 07:00 05/22/24 08:53 05/22/24 07:00 05/22/24 08:53 05/22/24 07:00
Intake & Output
05/20/24 05/21/24 05/22/24 05/23/24
06:59 06:59 06:59 06:59
Intake Total 240 / 240 480 / 480
Output Total 300 / 300 1400 / 1400
Balance -60 / -60 -920 / -920
Physical Exam
Physical Exam
General: Well developed, well nourished in NAD.
Neck: Supple, no JVD, HJR, carotids +2 B/L, no bruits bilaterally.
Heart: Non displaced PMI, irregular, no murmurs, No S3, S4, no rubs.
Lungs: Scattered rhonchi
Neuro: Grossly nonfocal, awake, alert and oriented x3.
--- NOTE | 2024-05-22 11:57 | W.PN.HOSP.TC ---
Today's Communication/Plan
-
MARIANO bandages
IV lasix
Assessment / Plan
Assessment / Plan
89-year-old female with CHF
Echo 05/21/2024-moderately reduced systolic function with EF 35 to 40%. Ventricle globally hypokinetic. RV normal. Severe biatrial dilatation. Moderate MR. Moderate MS. Mild to moderate AAS. Mild AI. Moderate to severe TR with moderate to
severe pulmonary hypertension 50 to 55 mmHg
Subconjunctival hemorrhage right eye
CVS: S1-S2 irregular,sm at apex and rhb
Chest: CTA B/L
Abdomen: Soft, NT / Bowel sounds present
Extremities:B/L Pedal edema , left more than right
# Acute on chronic heart failure with reduced ejection fraction due to noncompliance with fluid intake
Cardiomyopathy
Weight came down from 75.2 kg to 69.9 kg
Continue diuresis Lasix 40 mg IV twice daily
Continue Imdur
Not on MARIANO or ARB secondary to CKD
Intake output charting/daily weights
MARIANO bandages to Legs
Echo as above
Cardiology consulted and following
# Elevated troponin-likely nonischemic myocardial injury secondary to CHF
# Interstitial lung disease with chronic respiratory failure on oxygen
# Atrial flutter/paroxysmal atrial fibrillation
History of cardioversion September 2023 with recurrence the next day
Continue Eliquis, carvedilol
# Anemia of chronic disease
# Hypokalemia-replace
# Chronic transaminitis
# Valvular heart disease-moderate MR, moderate MS, mild to moderate AAS, mild AI, moderate to severe TR, moderate to severe pulmonary hypertension
# Coronary artery disease with multiple stents LAD, RCA, OM
# History of recurrently left pleural effusion with thoracentesis. Cytology negative for malignancy
900 ml removed 09/29/2023
900 ml removed 04/06/2024
800 ml removed 05/04/2024
# CKD stage IIIb-watch creatinine with diuresis
# Hypothyroidism-continue Synthroid 195 mcg daily
# Psoriatic arthritis/polymyalgia rheumatica-on prednisone 5 mg daily
# Hyperlipidemia with statin intolerance-continue Zetia
# Anxiety-continue Effexor 75 mg daily
# Cervical radiculopathy
# Nephrolithiasis
# Fibromyalgia/chronic pain
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
# GERD/hiatal hernia/stomach ulcers-continue PPI
# DVT prophylaxis-Eliquis
# DNR
D/W RN
Anticipated Discharge: 24 - 48 hours
Subjective/Interval History
-
Date of Service: May 22, 2024
Objective Data
-
Labs:
Laboratory Results
05/22/24
04:48
WBC 6.6
Hgb 9.0 L
Hct 30.4 L
Plt Count 181
Sodium 144
Potassium 4.1
Chloride 102
Carbon Dioxide 31 H
BUN 49 H
Creatinine 1.7 H
Glucose 106 H
Calcium 8.3 L
Vital Signs:
Vital Signs
Temp Pulse Resp BP Pulse Ox
97.5 F 117 16 138/70 100
05/22/24 07:00 05/22/24 08:53 05/22/24 07:00 05/22/24 08:53 05/22/24 08:45
I&O
05/21/24 05/22/24 05/23/24
06:59 06:59 06:59
Intake Total 240 / 240 480 / 480
Output Total 300 / 300 1400 / 1400
Balance -60 / -60 -920 / -920
[2024-05-22] MEDS: ZETIA 10 MG PO (17:49)
[2024-05-22] MEDS: DELTASONE 5 MG PO (17:49)
[2024-05-23 03:30] VITALS: BP 143/81
[2024-05-23] MEDS: SYNTHROID 125 MCG PO (05:12)
[2024-05-23 06:00] VITALS: BMI 28.3
[2024-05-23 07:00] VITALS: BP 156/91
[2024-05-23 07:32] LABS: ALT (SGPT) 49 U/L (0-35); AST (SGOT) 53 U/L (14-36); Albumin 3.3 g/dl (3.5-5.0); Alkaline Phosphatase 84 U/L (38-126); Blood Urea Nitrogen 50 mg/dl (7-17); Calcium 8.1 mg/dl (8.4-10.2); Carbon Dioxide 31 mmol/L (22-30); Chloride 102 mmol/L (98-107); Direct Bilirubin 0.3 mg/dl (0.0-0.4); Estimated Creatinine Clearance 20 ml/min; Glucose 118 mg/dl (70-99); Potassium 3.8 mmol/L (3.5-5.1); Sodium 146 mmol/L (135-145); Total Bilirubin 0.5 mg/dl (0.2-1.3); Total Protein 5.9 g/dl (6.3-8.2); eGFR 26.77
[2024-05-23 08:21] LABS: Hematocrit 31.1 % (37.0-47.0); Mean Corp Hgb Conc. 28.9 g/dL (33.0-37.0); Mean Corpuscular Hgb 28.5 pg (27.0-31.0); Mean Corpuscular Volume 98.4 fL (81.0-99.0); Mean Platelet Volume 9.8 fL (7.4-10.4); Platelet Count 182 10^3/uL (130-400); Red Blood Cell Count 3.16 10^6/uL (4.20-5.40); Red Cell Dist. Width 15.7 % (11.5-14.5); White Blood Cell Count 6.5 10^3/uL (4.8-10.8)
[2024-05-23] MEDS: PACERONE 200 MG PO ×3 (09:08→21:37)
[2024-05-23] MEDS: PROTONIX 40 MG PO (09:08)
[2024-05-23] MEDS: ELIQUIS 2.5 MG PO ×2 (09:08→21:37)
[2024-05-23] MEDS: COREG 12.5 MG PO ×2 (09:08→21:37)
[2024-05-23] MEDS: EFFEXOR XR 75 MG PO (09:09)
[2024-05-23] MEDS: KCL 20 MEQ PO (09:09)
[2024-05-23] MEDS: LIPITOR 40 MG PO (09:09)
[2024-05-23] MEDS: LOW STRENGTH ASPIRIN 81 MG PO (09:09)
[2024-05-23] MEDS: IMDUR (EXTENDED RELEASE) 30 MG PO (09:09)
[2024-05-23] MEDS: LASIX 40 MG IV ×2 (09:09→15:16)
[2024-05-23] MEDS: COREG PO (09:17)
--- NOTE | 2024-05-23 09:50 | W.PN.CARDCBS ---
Addendum entered and electronically signed by Thaddeus Santos MD 05/23/24 09:56:
She remains anemic with hemoglobin of 9.0.? Patient may need hematologic workup. Could she benefit from erythropoietin?
Original Note:
Today's Communication / Plan
-
Continue IV Lasix
Consider change to oral Lasix in a.m.
Heart rate control poor in A-fib and will add amiodarone
Case management consult in a.m. to review cost of Farxiga/Jardiance
Impression / Plan
-
PCP: Dr. Figueroa
Cardiology: Dr. Santos
Impression:
Presented w/ edema, SOB
Acute on chronic HFrEF
Nonischemic myocardial injury
Typical atrial flutter
Persistent atrial fibrillation w/ RVR
s/p successful CV 09/08/23
recurrent Afib/flutter 09/09/23
Chronic Eliquis AC
CAD
PCI LAD 2004 ([facility])
PCI RCA 07/2010 ([facility])
s/p OM stent 10/08/17 with residual 40% stenosis of mid LAD and 50-60% stenosis of prox PDA
s/p 2.5 mm Xience to mid LAD 09/04/23
Recurrent L pleural effusion
s/p thoracentesis w/ 900 cc removed 09/29/2023
s/p thoracentesis w/ 900 cc removed 04/06/2024
s/p thoracentesis w/ 800 cc removed 05/04/2024
Cardiomyopathy, EF 30-35% by echo 09/2023
CKD 3b
HTN
Mild peak/mean 22/13 mmHg and TAM 1.4 cm sq
Psoriatic arthritis
Polymyalgia rheumatica
Hyperlipidemia
h/o statin intolerance
Interstitial lung disease on chronic O2 at night
Hypothyroidism
Anxiety
Fibromyalgia
Hx cervical radiculopathy
Hx left rotator cuff tear
R radial pseudoaneurysm s/p repair 11/13/2023
Urethral stone w/ hydronephrosis 01/2018
Shingles 09/2022
Syncope 09/2022 in setting of GI illness/dehydration
Chronic pain syndrome on oxycodone daily
Echo 01/06/18:�Mild LVH, EF 50-55% possible lateral hypokinesis, normal RV, severely dilated LA, Mild to moderate MR, Mild aortic stenosis, peak/mean gradient 29/16, aortic valve area 1.6 cm�, Mild TR, pulmonary pressure 51-56 mmHg
Echo October 2018: Ejection fraction 60-65 percent, mild MR, mild , mild-moderate AI�������
Echo 07/2020: EF 60-65%, mild with MPG 14 mm Hg, TAM 1.7 cm2.
Echo 03/04/23:�EF 55-60% with mild MR, mild , aortic root 4 cm, trace pericardial effusion
Echo 06/04/23: EF 55 to 60%, mild concentric LVH, mild mitral stenosis with mean transmitral gradient 6 mmHg, moderate MR, mild peak/mean gradient 22/13 mmHg and TAM 1.4 cm sq, trace TR with pulmonary artery systolic pressure 26 mmHg mildly
dilated aortic root
Echo 08/28/23: EF 40-45%, pleural effusion, not assessed
JIAN 09/08/23: EF 40-45%, mod to sev MR, evidence of
Echo 09/26/23: EF 30-35%, mod MR, mild AI, aortic sclerosis no stenosis, PASP 45 mmHg
Echo 05/21/2024: Ejection fraction 35 to 40%, moderate MR, mild to moderate mitral stenosis with mean gradient of 8 mmHg, mild to moderate AAS with mean gradient of 13 mmHg aortic valve area 1.2 cm�, moderate to severe TR with PA systolic pressure
of 50-55 mmHg
Plan:
She appears improved. Her weight seems to have plateaued.
Creatinine is worsened slightly from 1.7 to 1.8 on 05/23
Consider change to oral Lasix on 05/24
She was on oxygen at home 2 L at home and is currently on same oxygen level
Continue Coreg and Imdur. Previously on hydralazine, however stopped due to hypotension. No MARIANO/ARB/aldosterone antagonist due to renal function.
Will have case management look into the cost of Jardiance/Farxiga
Heart rate control in A-fib is uncontrolled
We will add amiodarone which have been stopped on prior office visit due to patient complaint of to many medications
Continue Eliquis 2.5mg BID for anticoagulation (creat, age). Plavix changed to aspirin 81mg daily at recent OV due to spontaneous scleral hemorrhages and nose bleeds.
HPI: Leigh is an 89 year old female with PMH atrial flutter, CAD with multiple prior stents, most recently PCI of the LAD 08/2023, recurrent left pleural effusion requiring thoracenteses, chronic HFrEF, cardiomyopathy, CKD 3B, hypertension, ,
polymyalgia rheumatica, hyperlipidemia with statin intolerance, ILD, hypothyroidism, and fibromyalgia. Presents to ER for evaluation of worsening shortness of breath with exertion and increased edema. She states for the past 1 week she has had
worsening shortness of breath only when exerting herself. She has no shortness of breath at rest and denies any orthopnea or PND. She has also noted increasing LE edema especially of her left lower extremity with associated weeping. She states
leg started to become red and tender to touch, prompting ER evaluation. In ER, lower extremity ultrasound negative for DVT. She was found to be in acute heart failure with proBNP 10,500 and chest x-ray with pulmonary edema. She was started on IV
Lasix 40 mg twice daily and was admitted for further workup and evaluation. She notes some improvement in her lower extremity edema. She denies any chest pain, palpitations, or dizziness.
Progress Note - Sales Counselor
Subjective
Date of Service: May 23, 2024
Denies shortness of breath
Objective
Labs:
05/23/24 05:26
05/23/24 05:26
Labs
Hgb 9.0 g/dL (12.0-16.0) L 05/23/24 05:26
Hct 31.1 % (37.0-47.0) L 05/23/24 05:26
Plt Count 182 10^3/uL (130-400) 05/23/24 05:26
Sodium 146 mmol/L (135-145) H 05/23/24 05:26
Potassium 3.8 mmol/L (3.5-5.1) 05/23/24 05:26
BUN 50 mg/dl (7-17) H 05/23/24 05:26
Creatinine 1.8 mg/dL (0.6-1.0) H 05/23/24 05:26
Glucose 118 mg/dl (70-99) H 05/23/24 05:26
Troponins
05/20/24 05/20/24 05/20/24
13:19 16:30 20:50
Troponin I 0.059 H* 0.046 H* 0.041 H*
05/21/24
02:41
Troponin I 0.044 H*
Vital Signs and I&O:
Vital Signs
Temp Pulse Resp BP Pulse Ox
97.5 F 106 18 156/91 97
05/23/24 07:00 05/23/24 09:08 05/23/24 07:00 05/23/24 09:08 05/23/24 07:00
Vital Signs
Temp Pulse Resp BP Pulse Ox
97.5 F 106 18 156/91 97
05/23/24 07:00 05/23/24 09:08 05/23/24 07:00 05/23/24 09:08 05/23/24 07:00
Intake & Output
05/21/24 05/22/24 05/23/24 05/24/24
06:59 06:59 06:59 06:59
Intake Total 240 / 240 480 / 480 1200 / 1200
Output Total 300 / 300 1400 / 1400 600 / 600
Balance -60 / -60 -920 / -920 600 / 600
Physical Exam
Physical Exam
General: Well developed, well nourished in NAD.
Neck: Supple, no JVD, HJR, carotids +2 B/L, no bruits bilaterally.
Heart: Non displaced PMI, irregular, tachycardic, no murmurs, No S3, S4, no rubs.
Lungs: Scattered rhonchi
Extremities: No clubbing, cyanosis or edema bilaterally.
Neuro: Grossly nonfocal, awake, alert and oriented x3.
[2024-05-23 11:15] VITALS: BP 113/76
--- NOTE | 2024-05-23 12:43 | W.PN.HOSP.TC ---
Today's Communication/Plan
-
diuresis
Discharge planning
Assessment / Plan
Assessment / Plan
89-year-old female with CHF
Echo 05/21/2024-moderately reduced systolic function with EF 35 to 40%. Ventricle globally hypokinetic. RV normal. Severe biatrial dilatation. Moderate MR. Moderate MS. Mild to moderate AAS. Mild AI. Moderate to severe TR with moderate to
severe pulmonary hypertension 50 to 55 mmHg
Subconjunctival hemorrhage right eye
CVS: S1-S2 irregular,sm at apex and rhb
Chest: CTA B/L
Abdomen: Soft, NT / Bowel sounds present
Extremities:B/L Pedal edema , left more than right, better
# Acute on chronic heart failure with reduced ejection fraction due to noncompliance with fluid intake
Cardiomyopathy
Weight came down from 75.2 kg to 70 kg
Continue diuresis Lasix 40 mg IV twice daily
Continue Imdur
Not on MARIANO or ARB secondary to CKD
Intake output charting/daily weights
MARIANO bandages to Legs
Echo as above
Cardiology consulted and following
# Elevated troponin-likely nonischemic myocardial injury secondary to CHF
# Interstitial lung disease with chronic respiratory failure on oxygen
# Atrial flutter/paroxysmal atrial fibrillation
History of cardioversion September 2023 with recurrence the next day
Continue Eliquis, carvedilol
# Anemia of chronic disease
# Hypokalemia-replaced
# Chronic transaminitis-OP GI eval. son made aware about transaminitis and the need for outpatient workup.
# Valvular heart disease-moderate MR, moderate MS, mild to moderate AAS, mild AI, moderate to severe TR, moderate to severe pulmonary hypertension
# Coronary artery disease with multiple stents LAD, RCA, OM
# History of recurrently left pleural effusion with thoracentesis. Cytology negative for malignancy
900 ml removed 09/29/2023
900 ml removed 04/06/2024
800 ml removed 05/04/2024
# CKD stage IIIb-watch creatinine with diuresis
# Hypothyroidism-continue Synthroid 125 mcg daily
# Psoriatic arthritis/polymyalgia rheumatica-on prednisone 5 mg daily
# Hyperlipidemia with statin intolerance-continue Zetia
# Anxiety-continue Effexor 75 mg daily
# Cervical radiculopathy
# Nephrolithiasis
# Fibromyalgia/chronic pain
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
# GERD/hiatal hernia/stomach ulcers-continue PPI
# DVT prophylaxis-Eliquis
# DNR
D/W RN
Spoke to son Dr.Jeffrey Larry ad updated .
Discharge planning
PT says rehab
Son wants what pt and we think is best for her
She doesn't want [place] [facility]
Per case management pt refuses to go to rehab
Anticipated Discharge: Within 24 hours
Subjective/Interval History
-
Date of Service: May 23, 2024
Objective Data
-
Labs:
Laboratory Results
05/23/24
05:26
WBC 6.5
Hgb 9.0 L
Hct 31.1 L
Plt Count 182
Sodium 146 H
Potassium 3.8
Chloride 102
Carbon Dioxide 31 H
BUN 50 H
Creatinine 1.8 H
Glucose 118 H
Calcium 8.1 L
Total Bilirubin 0.5
AST 53 H
ALT 49 H
Alkaline Phosphatase 84
Vital Signs:
Vital Signs
Temp Pulse Resp BP Pulse Ox
98.2 F 100 18 113/76 98
05/23/24 11:15 05/23/24 11:15 05/23/24 11:15 05/23/24 11:15 05/23/24 11:15
I&O
05/22/24 05/23/24 05/24/24
06:59 06:59 06:59
Intake Total 480 / 480 1200 / 1200
Output Total 1400 / 1400 600 / 600
Balance -920 / -920 600 / 600
--- NOTE | 2024-05-23 13:11 | CM ---
Met with patient at the bedside; explained that PT Recommended SNF when she is stable for discharge
Patient does not want to go to a SNF; has institutional cook in the home; she is agreeable to home health services; preference is [facility]
Referral sent to [facility] via [facility]
IMM benefit explained; form signed @ 1300
Plan: Discharge to home with Home Health tomorrow; reported that family member of neighbor will provide transport home
[2024-05-23 15:27] VITALS: BP 96/60
[2024-05-23] MEDS: DELTASONE 5 MG PO (17:00)
[2024-05-23] MEDS: ZETIA 10 MG PO (17:00)
[2024-05-23 19:24] VITALS: BP 130/79
[2024-05-23 23:55] VITALS: BP 145/70
[2024-05-24 03:55] VITALS: BP 144/75
[2024-05-24] MEDS: SYNTHROID 125 MCG PO (05:20)
[2024-05-24 06:00] VITALS: BMI 28.3
[2024-05-24 07:40] VITALS: BP 134/78
--- NOTE | 2024-05-24 09:42 | W.PN.CARDCBS ---
Addendum entered and electronically signed by Pavel Russell MD 05/24/24 19:42:
Complex 89-year-old woman admitted with acute on chronic HFrEF and atrial fibrillation with rapid ventricular response after discontinuation of digoxin and amiodarone
PMH: Chronic HFrEF, ischemic cardiomyopathy with EF 30-35%, persistent atrial fibrillation/flutter, CAD status post PCI of LAD 2004, RCA 2010, OM 2017 and mid LAD August 2023, recurrent left pleural effusions status post thoracenteses x 3 in 2023
most recently May 04, CKD, hypertension, mild AAS, psoriatic arthritis, PMR, hyperlipidemia, statin intolerance, interstitial lung disease, fibromyalgia, anxiety renal calculi, chronic pain
Allergies: Hydroxychloroquine, penicillins
Outpatient meds reviewed
Current meds: Flexiban 2.5 twice daily, atorvastatin 40 mg a day, ezetimibe 10 mg a day, isosorbide mononitrate, levothyroxine, pantoprazole, potassium 20 mill colons daily, prednisone 5 mg a day, venlafaxine 75 a day, Lasix 40 IV twice daily,
aspirin, amiodarone 200 3 times daily, carvedilol 12.5 twice daily, dapagliflozin 10 mg a day
140/68, pulse 99, respiratory 18, afebrile, intake and output +710 mL, No distress but was dyspneic walking to bathroom, head neck exam unremarkable, lungs are somewhat diminished in bases, JVD minimally elevated, irregular rate and rhythm,
systolic murmur at apex, systolic murmur soft at base, 2-3+ edema left, 1-2+ right, abdomen benign neuro nonfocal
ECG today atrial fibrillation with borderline ventricular response, nonspecific ST and T changes
Potassium 3.2, creatinine 1.6, which is stable
Impression:
Acute on chronic HFrEF
Nonischemic myocardial injury
Typical atrial flutter
Persistent atrial fibrillation w/ RVR
s/p successful CV 09/08/23
recurrent Afib/flutter 09/09/23Chronic Eliquis AC
CAD
PCI LAD 2004 ([facility])
PCI RCA 07/2010 ([facility])
s/p OM stent 10/08/17 with residual 40% stenosis of mid LAD and 50-60% stenosis of prox PDA
s/p 2.5 mm Xience to mid LAD 09/04/23Recurrent L pleural effusion
s/p thoracentesis w/ 900 cc removed 09/29/2023
s/p thoracentesis w/ 900 cc removed 04/06/2024
s/p thoracentesis w/ 800 cc removed 4Cardiomyopathy, EF 30-35% by echo 09/2023
CKD 3b
HTN
Mild peak/mean 22/13 mmHg and TAM 1.4 cm sq
Psoriatic arthritis
Polymyalgia rheumatica
Hyperlipidemia
h/o statin intolerance
Interstitial lung disease on chronic O2 at night
Hypothyroidism
Anxiety
Fibromyalgia
Hx cervical radiculopathy
Hx left rotator cuff tear
R radial pseudoaneurysm s/p repair 11/13/2023
Urethral stone w/ hydronephrosis 01/2018
Shingles 09/2022
Syncope 09/2022 in setting of GI illness/dehydration
Chronic pain syndrome on oxycodone daily
Plan:
She looks reasonably stable
Her heart rate is better controlled with restart of amiodarone and up titration of carvedilol.
However, she is still volume overloaded. Would continue IV Lasix and transition to oral in 24 to 48 hours.
Continue apixaban 2.5 mg twice daily, isosorbide mononitrate amiodarone, carvedilol and Farxiga.
Given anemia I would favor discontinuation of aspirin and continuation of Eliquis alone.Most recent creatinine is 1.8, so continue 2.5 mg Twice daily
Original Note:
Today's Communication / Plan
-
Await AM labs. Likely can transition to PO lasix
Follow symptoms/pulse ox w/ ambulation
Continue amiodarone, carvedilol. Decrease amiodarone to 200mg BID at discharge.
Continue Eliquis
Consider addition of SGLT2 inhibitor as OP if patient agreeable. Cost $11/month.
Follow up arranged
Impression / Plan
-
PCP: Dr. Figueroa
Cardiology: Dr. Santos
Impression:
Presented w/ edema, SOB
Acute on chronic HFrEF
Nonischemic myocardial injury
Typical atrial flutter
Persistent atrial fibrillation w/ RVR
s/p successful CV 09/08/23
recurrent Afib/flutter 09/09/23
Chronic Eliquis AC
CAD
PCI LAD 2004 ([facility])
PCI RCA 07/2010 ([facility])
s/p OM stent 10/08/17 with residual 40% stenosis of mid LAD and 50-60% stenosis of prox PDA
s/p 2.5 mm Xience to mid LAD 09/04/23
Recurrent L pleural effusion
s/p thoracentesis w/ 900 cc removed 09/29/2023
s/p thoracentesis w/ 900 cc removed 04/06/2024
s/p thoracentesis w/ 800 cc removed 05/04/2024
Cardiomyopathy, EF 30-35% by echo 09/2023
CKD 3b
HTN
Mild peak/mean 22/13 mmHg and TAM 1.4 cm sq
Psoriatic arthritis
Polymyalgia rheumatica
Hyperlipidemia
h/o statin intolerance
Interstitial lung disease on chronic O2 at night
Hypothyroidism
Anxiety
Fibromyalgia
Hx cervical radiculopathy
Hx left rotator cuff tear
R radial pseudoaneurysm s/p repair 11/13/2023
Urethral stone w/ hydronephrosis 01/2018
Shingles 09/2022
Syncope 09/2022 in setting of GI illness/dehydration
Chronic pain syndrome on oxycodone daily
Echo 01/06/18:�Mild LVH, EF 50-55% possible lateral hypokinesis, normal RV, severely dilated LA, Mild to moderate MR, Mild aortic stenosis, peak/mean gradient 29/16, aortic valve area 1.6 cm�, Mild TR, pulmonary pressure 51-56 mmHg
Echo October 2018: Ejection fraction 60-65 percent, mild MR, mild , mild-moderate AI�������
Echo 07/2020: EF 60-65%, mild with MPG 14 mm Hg, TAM 1.7 cm2.
Echo 03/04/23:�EF 55-60% with mild MR, mild , aortic root 4 cm, trace pericardial effusion
Echo 06/04/23: EF 55 to 60%, mild concentric LVH, mild mitral stenosis with mean transmitral gradient 6 mmHg, moderate MR, mild peak/mean gradient 22/13 mmHg and TAM 1.4 cm sq, trace TR with pulmonary artery systolic pressure 26 mmHg mildly
dilated aortic root
Echo 08/28/23: EF 40-45%, pleural effusion, not assessed
JIAN 09/08/23: EF 40-45%, mod to sev MR, evidence of
Echo 09/26/23: EF 30-35%, mod MR, mild AI, aortic sclerosis no stenosis, PASP 45 mmHg
Echo 05/21/2024: Ejection fraction 35 to 40%, moderate MR, mild to moderate mitral stenosis with mean gradient of 8 mmHg, mild to moderate with mean gradient of 13 mmHg aortic valve area 1.2 cm�, moderate to severe TR with PA systolic pressure of
50-55 mmHg
Plan:
-Presented with SOB and increased LE edema w/ weeping. Admitted with acute heart failure exacerbation and rapid afib.
-Diuresing with IV lasix 40mg BID. Creat has been stable at 1.7, 1.8. Awaiting AM labs, however likely will transition to PO lasix.
-Still denies SOB at rest. On 2L NC which is reportedly her baseline. Would ambulate and see how breathing is.
-Weight has been stable at 154lbs over the past few days, down from admission weight of 165 lbs.
-Echo this admission w/ stable EF of 35-40% with moderate MR and mild-mod .
-Continue Coreg and Imdur. Previously on hydralazine, however stopped due to hypotension. No MARIANO/ARB/aldosterone antagonist due to renal function.
-Appreciate CM looking into cost of SGLT2 inhibitor. Farxiga/Jardiance 10mg daily would cost $11/month. Discussed w/ patient and she would like to discuss this with her son prior to initiating. May consider starting as OP if she is agreeable.
-Remains in afib on review of telemetry. HR improved w/ uptitration of Coreg and addition of amiodarone.
-Continue Eliquis 2.5mg BID for anticoagulation (creat, age). Plavix changed to aspirin 81mg daily at recent OV due to spontaneous scleral hemorrhages and nose bleeds.
-Continue lipitor 40mg daily and zetia 10mg daily. LDL 25
-Follow up arranged.
HPI: Leigh is an 89 year old female with PMH atrial flutter, CAD with multiple prior stents, most recently PCI of the LAD 08/2023, recurrent left pleural effusion requiring thoracenteses, chronic HFrEF, cardiomyopathy, CKD 3B, hypertension, ,
polymyalgia rheumatica, hyperlipidemia with statin intolerance, ILD, hypothyroidism, and fibromyalgia. Presents to ER for evaluation of worsening shortness of breath with exertion and increased edema. She states for the past 1 week she has had
worsening shortness of breath only when exerting herself. She has no shortness of breath at rest and denies any orthopnea or PND. She has also noted increasing LE edema especially of her left lower extremity with associated weeping. She states
leg started to become red and tender to touch, prompting ER evaluation. In ER, lower extremity ultrasound negative for DVT. She was found to be in acute heart failure with proBNP 10,500 and chest x-ray with pulmonary edema. She was started on IV
Lasix 40 mg twice daily and was admitted for further workup and evaluation. She notes some improvement in her lower extremity edema. She denies any chest pain, palpitations, or dizziness.
Progress Note - Events Intern
Subjective
Date of Service: May 24, 2024
Still feels well with no SOB at rest. Edema improving. Has not been ambulating, so cannot comment on dyspnea w/ exertion.
Objective
Labs:
05/23/24 05:26
05/23/24 05:26
Labs
Hgb 9.0 g/dL (12.0-16.0) L 05/23/24 05:26
Hct 31.1 % (37.0-47.0) L 05/23/24 05:26
Plt Count 182 10^3/uL (130-400) 05/23/24 05:26
Sodium 146 mmol/L (135-145) H 05/23/24 05:26
Potassium 3.8 mmol/L (3.5-5.1) 05/23/24 05:26
BUN 50 mg/dl (7-17) H 05/23/24 05:26
Creatinine 1.8 mg/dL (0.6-1.0) H 05/23/24 05:26
Glucose 118 mg/dl (70-99) H 05/23/24 05:26
Vital Signs and I&O:
Vital Signs
Temp Pulse Resp BP Pulse Ox
97.7 F 90 18 134/78 99
05/24/24 07:40 05/24/24 07:40 05/24/24 07:40 05/24/24 07:40 05/24/24 07:40
Vital Signs
Temp Pulse Resp BP Pulse Ox
97.7 F 90 18 134/78 99
05/24/24 07:40 05/24/24 07:40 05/24/24 07:40 05/24/24 07:40 05/24/24 07:40
Intake & Output
05/22/24 05/23/24 05/24/24 05/25/24
06:59 06:59 06:59 06:59
Intake Total 480 / 480 1200 / 1200 960 / 960
Output Total 1400 / 1400 600 / 600 250 / 250
Balance -920 / -920 600 / 600 710 / 710
Physical Exam
Physical Exam
GEN: No distress, awake, alert, oriented x3
HEENT: supple, anicteric, mmm
LUNGS: CTA b/l, no wheezes/rales
CV: irregularly irregular, S1/S2, 1/6 syst murmur
EXT: No clubbing or cyanosis, trace edema, MARIANO wraps in place
NEURO: Gross non-focal
SKIN: Warm, dry, no rash
[2024-05-24] MEDS: LIPITOR 40 MG PO (10:06)
[2024-05-24] MEDS: COREG 12.5 MG PO ×2 (10:06→20:31)
[2024-05-24] MEDS: EFFEXOR XR 75 MG PO (10:07)
[2024-05-24] MEDS: IMDUR (EXTENDED RELEASE) 30 MG PO (10:07)
[2024-05-24] MEDS: LOW STRENGTH ASPIRIN 81 MG PO (10:07)
[2024-05-24] MEDS: PACERONE 200 MG PO ×3 (10:07→21:52)
[2024-05-24] MEDS: KCL 20 MEQ PO (10:07)
[2024-05-24] MEDS: LASIX 40 MG IV ×2 (10:07→16:53)
[2024-05-24] MEDS: ELIQUIS 2.5 MG PO ×2 (10:07→20:31)
[2024-05-24] MEDS: PROTONIX 40 MG PO (10:08)
[2024-05-24 11:28] VITALS: BP 140/68
[2024-05-24 11:35] LABS: Blood Urea Nitrogen 52 mg/dl (7-17); Calcium 8.2 mg/dl (8.4-10.2); Carbon Dioxide 33 mmol/L (22-30); Chloride 101 mmol/L (98-107); Estimated Creatinine Clearance 22 ml/min; Glucose 148 mg/dl (70-99); Potassium 3.2 mmol/L (3.5-5.1); Sodium 144 mmol/L (135-145); eGFR 30.83
--- NOTE | 2024-05-24 11:42 | W.PN.HOSP.TC ---
Today's Communication/Plan
-
Replace potassium
Start Farxiga
Patient does not want to go to rehab. She lives in an apartment and has aides coming during daytime till 5 PM.
She states that bathroom is very close, she does not want to use the commode.
Will discharge patient home if okay with cardiology also
Assessment / Plan
Assessment / Plan
89-year-old female with CHF
Echo 05/21/2024-moderately reduced systolic function with EF 35 to 40%. Ventricle globally hypokinetic. RV normal. Severe biatrial dilatation. Moderate MR. Moderate MS. Mild to moderate AAS. Mild AI. Moderate to severe TR with moderate to
severe pulmonary hypertension 50 to 55 mmHg
Subconjunctival hemorrhage right eye
CVS: S1-S2 irregular,sm at apex and rhb
Chest: CTA B/L
Abdomen: Soft, NT / Bowel sounds present
Extremities:B/L Pedal edema , left more than right, better
# Acute on chronic heart failure with reduced ejection fraction due to noncompliance with fluid intake
Cardiomyopathy
Weight came down from 75.2 kg to 70 kg
Continue diuresis Lasix 40 mg IV twice daily
Continue Imdur
Not on MARIANO or ARB secondary to CKD
Intake output charting/daily weights
MARIANO bandages to Legs
Start Farxiga, pt agreable.
Echo as above
Cardiology consulted and following
# Elevated troponin-likely nonischemic myocardial injury secondary to CHF
# Interstitial lung disease with chronic respiratory failure on oxygen
# Atrial flutter/paroxysmal atrial fibrillation
History of cardioversion September 2023 with recurrence the next day
Continue Eliquis, carvedilol
# Anemia of chronic disease
# Hypokalemia-replace
# Chronic transaminitis-OP GI eval. son made aware about transaminitis and the need for outpatient workup.
# Valvular heart disease-moderate MR, moderate MS, mild to moderate AAS, mild AI, moderate to severe TR, moderate to severe pulmonary hypertension
# Coronary artery disease with multiple stents LAD, RCA, OM
# History of recurrently left pleural effusion with thoracentesis. Cytology negative for malignancy
900 ml removed 09/29/2023
900 ml removed 04/06/2024
800 ml removed 05/04/2024
# CKD stage IIIb-watch creatinine with diuresis
# Hypothyroidism-continue Synthroid 125 mcg daily
# Psoriatic arthritis/polymyalgia rheumatica-on prednisone 5 mg daily
# Hyperlipidemia with statin intolerance-continue Zetia
# Anxiety-continue Effexor 75 mg daily
# Cervical radiculopathy
# Nephrolithiasis
# Fibromyalgia/chronic pain
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
# GERD/hiatal hernia/stomach ulcers-continue PPI
# DVT prophylaxis-Eliquis
# DNR
D/W RN
Spoke to son Dr.Jeffrey Larry and updated yesterday
Anticipated Discharge: Today
Subjective/Interval History
-
Date of Service: May 24, 2024
Objective Data
-
Labs:
Laboratory Results
05/24/24
10:05
Sodium 144
Potassium 3.2 L
Chloride 101
Carbon Dioxide 33 H
BUN 52 H
Creatinine 1.6 H
Glucose 148 H
Calcium 8.2 L
Vital Signs:
Vital Signs
Temp Pulse Resp BP Pulse Ox
97.8 F 99 18 140/68 100
05/24/24 11:28 05/24/24 11:28 05/24/24 11:28 05/24/24 11:28 05/24/24 11:28
I&O
05/23/24 05/24/24 05/25/24
06:59 06:59 06:59
Intake Total 1200 / 1200 960 / 960
Output Total 600 / 600 250 / 250
Balance 600 / 600 710 / 710
[2024-05-24] MEDS: KCL 270 MEQ IV (12:23)
[2024-05-24] MEDS: FARXIGA 10 MG PO (12:29)
[2024-05-24 13:27] LABS: Vitamin D, 25-OH*** 79.2 ng/mL (30-80)
[2024-05-24 14:00] LABS: Vitamin B12 779 pg/ml (239-931)
--- NOTE | 2024-05-24 14:40 | VNURNOTE ---
Home Health Liaison met with patient at bedside to discuss [facility] nurse/therapy, visits, schedule and homebound status. Patient is agreeable and understands that visits at home will be 2-3 x per week to assess and teach medical management. She has had
[facility] in the past. [facility] brochure provided with contact information. Patient is aware that [facility] will contact them for start of care in 1-2 days after discharge from .
[facility] referral updated and accepted in [facility].
[2024-05-24 15:28] VITALS: BP 104/52
--- NOTE | 2024-05-24 17:13 | CM ---
PT recommended SNF.
Pt declined SNF.
Pt accepted with [facility] .
Pt has daily home health aids at home .
Potassium replaced today .
cardiology involved.
Jardiance priced checked $11.00 MD aware.
PLAN Home no needs
[2024-05-24] MEDS: ZETIA 10 MG PO (17:53)
[2024-05-24] MEDS: DELTASONE 5 MG PO (17:53)
[2024-05-24 19:43] VITALS: BP 98/55
[2024-05-24 23:09] VITALS: BP 120/63
[2024-05-25] VITALS (7 sets, daily range): BP systolic 115–129; BP diastolic 49–87; PULSE 94; O2SAT 100; BMI 28.6
[2024-05-25] MEDS: SYNTHROID 125 MCG PO (05:26)
[2024-05-25] MEDS: PACERONE 200 MG PO ×3 (08:44→21:23)
[2024-05-25] MEDS: KCL 20 MEQ PO (08:44)
[2024-05-25] MEDS: PROTONIX 40 MG PO (08:44)
[2024-05-25] MEDS: COREG 12.5 MG PO ×2 (08:44→21:22)
[2024-05-25] MEDS: IMDUR (EXTENDED RELEASE) 30 MG PO (08:44)
[2024-05-25] MEDS: FARXIGA 10 MG PO (08:44)
[2024-05-25] MEDS: ELIQUIS 2.5 MG PO ×2 (08:45→21:23)
[2024-05-25] MEDS: LASIX 40 MG IV ×2 (08:45→17:32)
[2024-05-25] MEDS: LIPITOR 40 MG PO (08:45)
[2024-05-25] MEDS: EFFEXOR XR 75 MG PO (08:45)
[2024-05-25 09:16] LABS: Blood Urea Nitrogen 53 mg/dl (7-17); Calcium 8.4 mg/dl (8.4-10.2); Carbon Dioxide 32 mmol/L (22-30); Chloride 102 mmol/L (98-107); Estimated Creatinine Clearance 21 ml/min; Glucose 85 mg/dl (70-99); Potassium 4.1 mmol/L (3.5-5.1); Sodium 143 mmol/L (135-145); eGFR 28.67
--- NOTE | 2024-05-25 09:55 | W.HF.CON ---
Heart Failure
- LV Function
Left ventricular function study result: LV Ejection fraction 36-40%
Ejection Fraction Percentage: 35-40
- ARNI
Patient already on ARNI: No
Heart Failure ARNI Contraindication: Acute Renal Failure
- ACEI/ARB
Patient already on ACEI/ARB: No
Heart Failure ACEI/ARB Contraindication: Acute Renal Failure
- Beta Vanessa
Patient already on Evidence Based Beta Vanessa: Yes
- Mineralocorticord Receptor Antagonist
Patient already on MRA: No
Heart Failure MRA Contraindication: Acute Renal Insufficiency
- SGLT-2 Inhibitor
Patient already on SGLT-2 Inhibitor: Yes
- Afib Anticoagulation
Patient already on Anticoagulation for Afib: Yes
- NYHA CHF Classification
NYHA CHF Classification Level: Class III - Symptoms w/ min exertion, interferes w/ nml daily activity
- ACC/AHA Stage
ACC/AHA Stage: Stage C: Symptomatic Heart Failure
--- NOTE | 2024-05-25 10:41 | CM ---
PT recommended SNF pt declined SNF at [facility]..
Pt requested [facility]
Pt accepted with [facility] .
Pt has daily home health aids at home .
Jardiance priced checked $11.00 MD aware.
PLAN Home with [facility]
--- NOTE | 2024-05-25 12:04 | W.PN.CARDCBS ---
Addendum entered and electronically signed by Pavel Russell MD 05/25/24 13:32:
Complex 89-year-old woman admitted with acute on chronic HFrEF and atrial fibrillation with rapid ventricular response after discontinuation of digoxin and amiodarone
She feels better, still with dyspnea and some edema
PMH: Chronic HFrEF, ischemic cardiomyopathy with EF 30-35%, persistent atrial fibrillation/flutter, CAD status post PCI of LAD 2004, RCA 2010, OM 2017 and mid LAD August 2023, recurrent left pleural effusions status post thoracenteses x 3 in 2023
most recently May 04, CKD, hypertension, mild AAS, psoriatic arthritis, PMR, hyperlipidemia, statin intolerance, interstitial lung disease, fibromyalgia, anxiety renal calculi, chronic pain
Allergies: Hydroxychloroquine, penicillins
Outpatient meds reviewed
Current meds: Flexiban 2.5 twice daily, atorvastatin 40 mg a day, ezetimibe 10 mg a day, isosorbide mononitrate, levothyroxine, pantoprazole, potassium 20 mill colons daily, prednisone 5 mg a day, venlafaxine 75 a day, Lasix 40 IV twice daily,
aspirin, amiodarone 200 3 times daily, carvedilol 12.5 twice daily, dapagliflozin 10 mg a day
115/49, pulse 88, respirate 20, sats 100% on oxygen, weight is up 0.9 kg, no acute distress, head neck exam unremarkable, diminished breath sounds Left base, irregular rate and rhythm, abdomen benign extremities 1-2+ edema
BUN and creatinine are 53 and 1.7, potassium is 4.1
Chest ultrasound pending
Impression:
See below
Plan:
She is still volume overloaded but overall does look improved.
Ideally I would keep her for an additional day or 2, consider metolazone, etc. however she strongly desires to be discharged.
Will plan on discharge later today.
Await ultrasound of thorax, would be in favor of thoracentesis if feasible.
Overall her heart rate is better controlled and this may reduce her likelihood of readmission with recurrent heart failure. Carvedilol has been increased and amiodarone has been restarted.
Recommended cardiac medications at discharge:
Apixaban 2.5 mg twice daily
Atorvastatin 40 mg a day
Ezetimibe 10 mg at bedtime
Isosorbide mononitrate extended release 30 mg daily
Potassium 20 mill equivalents daily
Furosemide 80 mg in a.m. and 60 mg in p.m.
Amiodarone 200 mg twice daily for 2 weeks, then 200 mg a day
Carvedilol 12.5 mg twice daily
Farxiga 10 mg daily
Please get BMP within 3 to 5 days.
We will arrange for cardiac follow-up
Original Note:
Today's Communication / Plan
-
Discharge home on amiodarone 200 mg twice a day x 2 weeks then 200 mg daily after
Continue Eliquis 2.5 mg twice daily
Continue increased dose of Coreg, isosorbide and Farxiga (new this admission)
Consider sending home on higher dose of than what she came in on
Will need BMP 5-7 days after d/c
Impression / Plan
-
PCP: Dr. Figueroa
Cardiology: Dr. Santos
Impression:
Presented w/ edema, SOB
Acute on chronic HFrEF
Nonischemic myocardial injury
Typical atrial flutter
Persistent atrial fibrillation w/ RVR
s/p successful CV 09/08/23
recurrent Afib/flutter 09/09/23
Chronic Eliquis AC
CAD
PCI LAD 2004 ([facility])
PCI RCA 07/2010 ([facility])
s/p OM stent 10/08/17 with residual 40% stenosis of mid LAD and 50-60% stenosis of prox PDA
s/p 2.5 mm Xience to mid LAD 09/04/23
Recurrent L pleural effusion
s/p thoracentesis w/ 900 cc removed 09/29/2023
s/p thoracentesis w/ 900 cc removed 04/06/2024
s/p thoracentesis w/ 800 cc removed 05/04/2024
Cardiomyopathy, EF 30-35% by echo 09/2023
CKD 3b
HTN
Mild peak/mean 22/13 mmHg and TAM 1.4 cm sq
Psoriatic arthritis
Polymyalgia rheumatica
Hyperlipidemia
h/o statin intolerance
Interstitial lung disease on chronic O2 at night
Hypothyroidism
Anxiety
Fibromyalgia
Hx cervical radiculopathy
Hx left rotator cuff tear
R radial pseudoaneurysm s/p repair 11/13/2023
Urethral stone w/ hydronephrosis 01/2018
Shingles 09/2022
Syncope 09/2022 in setting of GI illness/dehydration
Chronic pain syndrome on oxycodone daily
Echo 01/06/18:�Mild LVH, EF 50-55% possible lateral hypokinesis, normal RV, severely dilated LA, Mild to moderate MR, Mild aortic stenosis, peak/mean gradient 29/16, aortic valve area 1.6 cm�, Mild TR, pulmonary pressure 51-56 mmHg
Echo October 2018: Ejection fraction 60-65 percent, mild MR, mild , mild-moderate AI�������
Echo 07/2020: EF 60-65%, mild with MPG 14 mm Hg, TMA 1.7 cm2.
Echo 03/04/23:�EF 55-60% with mild MR, mild , aortic root 4 cm, trace pericardial effusion
Echo 06/04/23: EF 55 to 60%, mild concentric LVH, mild mitral stenosis with mean transmitral gradient 6 mmHg, moderate MR, mild peak/mean gradient 22/13 mmHg and TAM 1.4 cm sq, trace TR with pulmonary artery systolic pressure 26 mmHg mildly
dilated aortic root
Echo 08/28/23: EF 40-45%, pleural effusion, not assessed
JIAN 09/08/23: EF 40-45%, mod to sev MR, evidence of
Echo 09/26/23: EF 30-35%, mod MR, mild AI, aortic sclerosis no stenosis, PASP 45 mmHg
Echo 05/21/2024: Ejection fraction 35 to 40%, moderate MR, mild to moderate mitral stenosis with mean gradient of 8 mmHg, mild to moderate with mean gradient of 13 mmHg aortic valve area 1.2 cm�, moderate to severe TR with PA systolic pressure of
50-55 mmHg
Plan:
-Presented with SOB and increased LE edema w/ weeping. Admitted with acute heart failure exacerbation and rapid afib.
-Weight down 9 pounds since admission but up 2 pounds overnight. Current weight 156 pounds. Still with evidence of mild volume overload and given IV Lasix this morning. Patient eager to go home today and reports she was able to ambulate around
the halls with improved LOVELACE. Preferably would recommend patient stay an additional 24 hours. Prior outpatient dosing of Lasix 40 mg twice a day. If patient does leave today would recommend uptitrating Lasix to either 60 mg twice a day or 80 mg
twice a day upon discharge.
-Hospitalist has ordered Ultrasound of chest to evaluate left pleural effusion
-Creat has been stable at 1.6-1.8, currently 1.7.
-Will need BMP in 5 to 7 days following discharge
-Still denies SOB at rest. On 2L NC which is reportedly her baseline.
-Echo this admission w/ stable EF of 35-40% with moderate MR and mild-mod .
-Continue Coreg and Imdur. Previously on hydralazine, however stopped due to hypotension. No MARIANO/ARB/aldosterone antagonist due to renal function.
-Appreciate CM looking into cost of SGLT2 inhibitor. Farxiga/Jardiance 10mg daily cost $11/month. Patient agreeable to initiate therapy and placed on Farxiga 10 mg. Discussed watching out for UTI and yeast infections.
-Remains in afib on review of telemetry. HR improved w/ uptitration of Coreg and addition of amiodarone. Would discharge home on amiodarone 200 mg twice a day x 2 weeks then 200 mg daily after. Stable QTc 475 on EKG 05/25/2024
-Continue Eliquis 2.5mg BID for anticoagulation (creat, age). Plavix changed to aspirin 81mg daily at recent OV due to spontaneous scleral hemorrhages and nose bleeds. Concern for recurrent bleeding risk and currently remains off aspirin
-Continue lipitor 40mg daily and zetia 10mg daily. LDL 25
-Follow up arranged.
HPI: Leigh is an 89 year old female with PMH atrial flutter, CAD with multiple prior stents, most recently PCI of the LAD 08/2023, recurrent left pleural effusion requiring thoracenteses, chronic HFrEF, cardiomyopathy, CKD 3B, hypertension, ,
polymyalgia rheumatica, hyperlipidemia with statin intolerance, ILD, hypothyroidism, and fibromyalgia. Presents to ER for evaluation of worsening shortness of breath with exertion and increased edema. She states for the past 1 week she has had
worsening shortness of breath only when exerting herself. She has no shortness of breath at rest and denies any orthopnea or PND. She has also noted increasing LE edema especially of her left lower extremity with associated weeping. She states
leg started to become red and tender to touch, prompting ER evaluation. In ER, lower extremity ultrasound negative for DVT. She was found to be in acute heart failure with proBNP 10,500 and chest x-ray with pulmonary edema. She was started on IV
Lasix 40 mg twice daily and was admitted for further workup and evaluation. She notes some improvement in her lower extremity edema. She denies any chest pain, palpitations, or dizziness.
Progress Note - Documentation Coordinator
Subjective
Date of Service: May 25, 2024
Patient seen and examined. Patient sitting up in chair. Patient reports she was able to ambulate around the [place] and felt less short of breath than previously. She reports she is very eager to go home
Objective
Labs:
05/23/24 05:26
05/25/24 08:26
Labs
Hgb 9.0 g/dL (12.0-16.0) L 05/23/24 05:26
Hct 31.1 % (37.0-47.0) L 05/23/24 05:26
Plt Count 182 10^3/uL (130-400) 05/23/24 05:26
Sodium 143 mmol/L (135-145) 05/25/24 08:26
Potassium 4.1 mmol/L (3.5-5.1) D 05/25/24 08:26
BUN 53 mg/dl (7-17) H 05/25/24 08:26
Creatinine 1.7 mg/dL (0.6-1.0) H 05/25/24 08:26
Glucose 85 mg/dl (70-99) 05/25/24 08:26
Vital Signs and I&O:
Vital Signs
Temp Pulse Resp BP Pulse Ox
98 F 88 20 115/49 100
05/25/24 11:04 05/25/24 11:04 05/25/24 11:04 05/25/24 11:04 05/25/24 11:04
Vital Signs
Temp Pulse Resp BP Pulse Ox
98 F 88 20 115/49 100
05/25/24 11:04 05/25/24 11:04 05/25/24 11:04 05/25/24 11:04 05/25/24 11:04
Intake & Output
05/23/24 05/24/24 05/25/24 05/26/24
06:59 06:59 06:59 06:59
Intake Total 1200 / 1200 960 / 960 840 / 840
Output Total 600 / 600 250 / 250
Balance 600 / 600 710 / 710 840 / 840
Physical Exam
Physical Exam
GEN: No distress, awake, alert, oriented x3
HEENT: supple, anicteric, mmm
LUNGS: Crackles at right base, diffuse crackles over left lung field with decreased BS at left base, no wheezes/rales
CV: irregularly irregular, S1/S2, 1/6 syst murmur
EXT: No clubbing or cyanosis, trace edema, MARIANO wraps in place
NEURO: Gross non-focal
SKIN: Warm, dry, no rash
--- NOTE | 2024-05-25 12:11 | W.PN.HOSP.TC ---
Today's Communication/Plan
-
Pt anxious to go home
Weight same Ill check chest USS
Assessment / Plan
Assessment / Plan
89-year-old female with CHF
Echo 05/21/2024-moderately reduced systolic function with EF 35 to 40%. Ventricle globally hypokinetic. RV normal. Severe biatrial dilatation. Moderate MR. Moderate MS. Mild to moderate AAS. Mild AI. Moderate to severe TR with moderate to
severe pulmonary hypertension 50 to 55 mmHg
Subconjunctival hemorrhage right eye
CVS: S1-S2 irregular,sm at apex and rhb
Chest: CTA B/L
Abdomen: Soft, NT / Bowel sounds present
Extremities:B/L Pedal edema , left more than right, better
# Acute on chronic heart failure with reduced ejection fraction due to noncompliance with fluid intake
Cardiomyopathy
Weight came down from 75.2 kg to 70 kg
Continue diuresis Lasix 40
Will get an USS chest on the left
Continue Imdur
Not on MARIANO or ARB secondary to CKD
Intake output charting/daily weights
MARIANO bandages to Legs
Start Farxiga, pt agreeable.
Echo as above
Cardiology consulted and following
# Elevated troponin-likely nonischemic myocardial injury secondary to CHF
# Interstitial lung disease with chronic respiratory failure on oxygen
# Atrial flutter/paroxysmal atrial fibrillation
History of cardioversion September 2023 with recurrence the next day
Continue Eliquis, carvedilol
# Anemia of chronic disease
# Hypokalemia-replace
# Chronic transaminitis-OP GI eval. son made aware about transaminitis and the need for outpatient workup.
# Valvular heart disease-moderate MR, moderate MS, mild to moderate AAS, mild AI, moderate to severe TR, moderate to severe pulmonary hypertension
# Coronary artery disease with multiple stents LAD, RCA, OM
# History of recurrently left pleural effusion with thoracentesis. Cytology negative for malignancy
900 ml removed 09/29/2023
900 ml removed 04/06/2024
800 ml removed 05/04/2024
# CKD stage IIIb-watch creatinine with diuresis
# Hypothyroidism-continue Synthroid 125 mcg daily
# Psoriatic arthritis/polymyalgia rheumatica-on prednisone 5 mg daily
# Hyperlipidemia with statin intolerance-continue Zetia
# Anxiety-continue Effexor 75 mg daily
# Cervical radiculopathy
# Nephrolithiasis
# Fibromyalgia/chronic pain
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
# GERD/hiatal hernia/stomach ulcers-continue PPI
# DVT prophylaxis-Eliquis
# DNR
D/W RN
D/W Cards
Anticipated Discharge: Within 24 hours
Subjective/Interval History
-
Date of Service: May 25, 2024
Objective Data
-
Labs:
Laboratory Results
05/25/24
08:26
Sodium 143
Potassium 4.1 D
Chloride 102
Carbon Dioxide 32 H
BUN 53 H
Creatinine 1.7 H
Glucose 85
Calcium 8.4
Vital Signs:
Vital Signs
Temp Pulse Resp BP Pulse Ox
98 F 88 20 115/49 100
05/25/24 11:04 05/25/24 11:04 05/25/24 11:04 05/25/24 11:04 05/25/24 11:04
I&O
05/24/24 05/25/24 05/26/24
06:59 06:59 06:59
Intake Total 960 / 960 840 / 840
Output Total 250 / 250
Balance 710 / 710 840 / 840
[2024-05-25] MEDS: DELTASONE 5 MG PO (17:33)
[2024-05-25] MEDS: ZETIA 10 MG PO (17:33)
[2024-05-26 03:24] VITALS: BP 123/70
[2024-05-26 06:00] VITALS: BMI 28.4
[2024-05-26] MEDS: SYNTHROID 125 MCG PO (06:05)
[2024-05-26 07:00] VITALS: BP 116/65
[2024-05-26 07:48] LABS: Blood Urea Nitrogen 53 mg/dl (7-17); Calcium 8.3 mg/dl (8.4-10.2); Carbon Dioxide 33 mmol/L (22-30); Chloride 101 mmol/L (98-107); Estimated Creatinine Clearance 20 ml/min; Glucose 112 mg/dl (70-99); Potassium 4.1 mmol/L (3.5-5.1); Sodium 143 mmol/L (135-145); eGFR 26.77
[2024-05-26] MEDS: PACERONE 200 MG PO (09:22)
[2024-05-26] MEDS: PROTONIX 40 MG PO (09:22)
[2024-05-26] MEDS: IMDUR (EXTENDED RELEASE) 30 MG PO (09:22)
[2024-05-26] MEDS: EFFEXOR XR 75 MG PO (09:22)
[2024-05-26] MEDS: FARXIGA 10 MG PO (09:22)
[2024-05-26] MEDS: COREG 12.5 MG PO (09:22)
[2024-05-26] MEDS: LIPITOR 40 MG PO (09:22)
[2024-05-26] MEDS: ELIQUIS 2.5 MG PO (09:23)
[2024-05-26] MEDS: KCL 20 MEQ PO (09:23)
[2024-05-26] MEDS: LASIX 40 MG IV (09:23)
[2024-05-26 09:35] VITALS: BP 129/107; BP_SYST 85
[2024-05-26 10:25] VITALS: BP 115/63
--- NOTE | 2024-05-26 10:56 | W.PN.CARDCBS ---
Addendum entered and electronically signed by Aubrey Goddard MD 05/26/24 12:08:
I saw and examined the patient.
The Technical Publications Writer's note was reviewed and I agree with the note.
Comment:
GEN: No distress, awake, Ox3
HEENT: supple, anicteric, mmm
LUNGS: Decreased breath sounds at left base.
CV: Irreg, S1/S2, / syst LSB, no murmur
ABD: soft, BS+, NT/ND
EXT: No edema
NEURO: Gross non-focal
SKIN: No rash
Plan:
Ultrasound revealed recurrence of left pleural fluid. Agree with plan for thoracentesis today.
No objections to discharge from cardiology standpoint after. Creatinine 1.8.
Recommended cardiac medications at discharge:
Apixaban 2.5 mg twice daily
Atorvastatin 40 mg a day
Ezetimibe 10 mg at bedtime
Isosorbide mononitrate extended release 30 mg daily
Potassium 20 meq daily
Furosemide 80 mg in a.m. and 60 mg in p.m.
Amiodarone 200 mg twice daily for 2 weeks, then 200 mg a day
Carvedilol 12.5 mg twice daily
Farxiga 10 mg daily
Original Note:
Today's Communication / Plan
-
Thoracentesis today
Impression / Plan
-
PCP: Dr. Figueroa
Cardiology: Dr. Santos
Impression:
Presented w/ edema, SOB
Elevated Troponin
Acute on chronic HFrEF
Nonischemic myocardial injury
Typical atrial flutter
Persistent atrial fibrillation w/ RVR
s/p successful CV 09/08/23
recurrent Afib/flutter 09/09/23
Chronic Eliquis AC
CAD
PCI LAD 2004 ([facility])
PCI RCA 07/2010 ([facility])
s/p OM stent 10/08/17 with residual 40% stenosis of mid LAD and 50-60% stenosis of prox PDA
s/p 2.5 mm Xience to mid LAD 09/04/23
Recurrent L pleural effusion
s/p thoracentesis w/ 900 cc removed 09/29/2023
s/p thoracentesis w/ 900 cc removed 04/06/2024
s/p thoracentesis w/ 800 cc removed 05/04/2024
Cardiomyopathy, EF 30-35% by echo 09/2023
CKD 3b
HTN
Mild peak/mean 22/13 mmHg and TAM 1.4 cm sq
Psoriatic arthritis
Polymyalgia rheumatica
Hyperlipidemia
h/o statin intolerance
Interstitial lung disease on chronic O2 at night
Hypothyroidism
Anxiety
Fibromyalgia
Hx cervical radiculopathy
Hx left rotator cuff tear
R radial pseudoaneurysm s/p repair 11/13/2023
Urethral stone w/ hydronephrosis 01/2018
Shingles 09/2022
Syncope 09/2022 in setting of GI illness/dehydration
Chronic pain syndrome on oxycodone daily
Echo 01/06/18:�Mild LVH, EF 50-55% possible lateral hypokinesis, normal RV, severely dilated LA, Mild to moderate MR, Mild aortic stenosis, peak/mean gradient 29/16, aortic valve area 1.6 cm�, Mild TR, pulmonary pressure 51-56 mmHg
Echo October 2018: Ejection fraction 60-65 percent, mild MR, mild , mild-moderate AI�������
Echo 07/2020: EF 60-65%, mild with MPG 14 mm Hg, TAM 1.7 cm2.
Echo 03/04/23:�EF 55-60% with mild MR, mild , aortic root 4 cm, trace pericardial effusion
Echo 06/04/23: EF 55 to 60%, mild concentric LVH, mild mitral stenosis with mean transmitral gradient 6 mmHg, moderate MR, mild peak/mean gradient 22/13 mmHg and TAM 1.4 cm sq, trace TR with pulmonary artery systolic pressure 26 mmHg mildly
dilated aortic root
Echo 08/28/23: EF 40-45%, pleural effusion, not assessed
JIAN 09/08/23: EF 40-45%, mod to sev MR, evidence of
Echo 09/26/23: EF 30-35%, mod MR, mild AI, aortic sclerosis no stenosis, PASP 45 mmHg
Echo 05/21/2024: Ejection fraction 35 to 40%, moderate MR, mild to moderate mitral stenosis with mean gradient of 8 mmHg, mild to moderate with mean gradient of 13 mmHg aortic valve area 1.2 cm�, moderate to severe TR with PA systolic pressure of
50-55 mmHg
Plan:
-Weight relatively unchanged since admission despite IV diuresis, but patient reports some symptomatic improvement.
-Cont Lasix 40 mg IV BID. Patient was taking Lasix 40 mg PO BID prior to admission. Recommend Lasix 80 mg AM and 40 mg PM upon d/c to home
-Plan is for thoracentesis 05/26/24 for recurrent left pleural effusion
-Cre trending up a bit to 1.8 on 05/26/24. BMP as an outpatient in 1 week
-EF 35% by echo this admission which is stable compared to echo from September.
-Outpatient dose of Coreg increased to 12.5 mg BID has been continued
-No MARIANO/ARB/aldosterone antagonist due to CAMRON on CKD.
-Outpatient dose of Imdur ER 30 mg daily has been continued.
-Hydralazine previously stopped due to hypotension
-New to Farxiga 10 mg daily and co-pay is $11/month and patient is agreeable.
-Remains in Afib on tele check by me. Amiodarone restarted this admission at 200 mg BID with a total of 2 grams loaded as of 05/26/24. Patient should remain on amiodarone, it had bee stopped prior to admission at her request.
-Coreg dose increased for HR control
-Continue Eliquis 2.5mg BID (age 89 and Cre 1.8).
-At office visit prior to admission the patient's Plavix was changed to aspirin 81mg daily due to spontaneous scleral hemorrhages and nose bleeds, but due to concern for recurrent bleeding risk aspirin has been stopped as well.
-Outpatient doses of atorvastatin 40 mg daily and Zetia 10 mg daily have been continued.
-Elevated Troponin will be managed as a nonischemic myocardial injury due to acute HF.
HPI: Leigh is an 89 year old female with PMH atrial flutter, CAD with multiple prior stents, most recently PCI of the LAD 08/2023, recurrent left pleural effusion requiring thoracenteses, chronic HFrEF, cardiomyopathy, CKD 3B, hypertension, ,
polymyalgia rheumatica, hyperlipidemia with statin intolerance, ILD, hypothyroidism, and fibromyalgia. Presents to ER for evaluation of worsening shortness of breath with exertion and increased edema. She states for the past 1 week she has had
worsening shortness of breath only when exerting herself. She has no shortness of breath at rest and denies any orthopnea or PND. She has also noted increasing LE edema especially of her left lower extremity with associated weeping. She states
leg started to become red and tender to touch, prompting ER evaluation. In ER, lower extremity ultrasound negative for DVT. She was found to be in acute heart failure with proBNP 10,500 and chest x-ray with pulmonary edema. She was started on IV
Lasix 40 mg twice daily and was admitted for further workup and evaluation. She notes some improvement in her lower extremity edema. She denies any chest pain, palpitations, or dizziness.
Progress Note - Office Clin Asst
Subjective
Date of Service: May 26, 2024
Feels less SOB, going for thoracentesis
Objective
Labs:
05/23/24 05:26
05/26/24 06:48
Labs
Hgb 9.0 g/dL (12.0-16.0) L 05/23/24 05:26
Hct 31.1 % (37.0-47.0) L 05/23/24 05:26
Plt Count 182 10^3/uL (130-400) 05/23/24 05:26
Sodium 143 mmol/L (135-145) 05/26/24 06:48
Potassium 4.1 mmol/L (3.5-5.1) 05/26/24 06:48
BUN 53 mg/dl (7-17) H 05/26/24 06:48
Creatinine 1.8 mg/dL (0.6-1.0) H 05/26/24 06:48
Glucose 112 mg/dl (70-99) H 05/26/24 06:48
Vital Signs and I&O:
Vital Signs
Temp Pulse Resp BP Pulse Ox
97.8 F 93 19 115/63 100
05/26/24 09:35 05/26/24 10:25 05/26/24 10:25 05/26/24 10:25 05/26/24 09:50
Vital Signs
Temp Pulse Resp BP Pulse Ox
97.8 F 93 19 115/63 100
05/26/24 09:35 05/26/24 10:25 05/26/24 10:25 05/26/24 10:25 05/26/24 09:50
Intake & Output
05/24/24 05/25/24 05/26/24 05/27/24
06:59 06:59 06:59 06:59
Intake Total 960 / 960 840 / 840 1200 / 1200
Output Total 250 / 250
Balance 710 / 710 840 / 840 1200 / 1200
Physical Exam
Physical Exam
General: NAD, AAO x3
HEENT: EOMI, MMM
Heart: Afib on tele
Lungs: Wearing oxygen at 2 L. No audible wheeze.
Abd: ND
Ext: No B/L LE edema
Neuro: Nonfocal
[2024-05-26 11:04] VITALS: BMI 28.2
[2024-05-26 11:20] VITALS: BP 111/46
[2024-05-26 11:34] LABS: Body Fluid pH 7.43
[2024-05-26 12:01] LABS: Body Fluid Glucose 122 mg/dl; Body Fluid LDH 93 U/L; Body Fluid Protein < 2.0 g/dl
[2024-05-26 12:09] LABS: Body Fluid Mononuclear 79.6 %; Body Fluid Polymorphonuclear 20.4 %; Body Fluid WBC 103 /CUMM
[2024-05-26 12:37] LABS: Body Fluid Second Tech AMA
--- NOTE | 2024-05-26 12:51 | W.PN.HOSP.TC ---
Today's Communication/Plan
-
Discharge
Assessment / Plan
Assessment / Plan
89-year-old female with CHF
Echo 05/21/2024-moderately reduced systolic function with EF 35 to 40%. Ventricle globally hypokinetic. RV normal. Severe biatrial dilatation. Moderate MR. Moderate MS. Mild to moderate AAS. Mild AI. Moderate to severe TR with moderate to
severe pulmonary hypertension 50 to 55 mmHg
Subconjunctival hemorrhage right eye- better
CVS: S1-S2 irregular,sm at apex and rhb
Chest: decreases left base
Abdomen: Soft, NT / Bowel sounds present
Extremities:Pedal edema better
# Acute on chronic heart failure with reduced ejection fraction due to noncompliance with fluid intake
Cardiomyopathy
Weight came down from 75.2 kg to 69.8 kg
Lasix to PO 80 in the morning and 60 mg in the evening
Status post thoracentesis today
Continue Imdur
Not on MARIANO or ARB secondary to CKD
MARIANO bandages to Legs and FR discussed with pt.
Continue Farxiga
Echo as above
Cardiology okay with discharging the patient today
# Elevated troponin-likely nonischemic myocardial injury secondary to CHF
# Interstitial lung disease with chronic respiratory failure on oxygen
# Atrial flutter/paroxysmal atrial fibrillation
History of cardioversion September 2023 with recurrence the next day
Continue Eliquis, carvedilol
# Anemia of chronic disease
# Hypokalemia-replace
# Chronic transaminitis-OP GI eval. son made aware about transaminitis and the need for outpatient workup.
# Valvular heart disease-moderate MR, moderate MS, mild to moderate AAS, mild AI, moderate to severe TR, moderate to severe pulmonary hypertension
# Coronary artery disease with multiple stents LAD, RCA, OM
# History of recurrently left pleural effusion with thoracentesis. Cytology negative for malignancy
900 ml removed 09/29/2023
900 ml removed 04/06/2024
800 ml removed 05/04/2024
>800 ml removed 05/26/24
# CKD stage IIIb-BMP 1 week
# Hypothyroidism-continue Synthroid 125 mcg daily
# Psoriatic arthritis/polymyalgia rheumatica-on prednisone 5 mg daily
# Hyperlipidemia with statin intolerance-continue Zetia
# Anxiety-continue Effexor 75 mg daily
# Cervical radiculopathy
# Nephrolithiasis
# Fibromyalgia/chronic pain
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
# GERD/hiatal hernia/stomach ulcers-continue PPI
# DVT prophylaxis-Eliquis
# DNR
D/W RN
D/W Cards
I reached out to Dr. Mccarty who is patient's outpatient vault manager.
Discussed with patient's son Dr. Larry
More than 30 minutes spent in discharge including
Final examination of the patient
Summarizing hospital stay
Instructions for continuing care to all relevant caregivers
Preparation of discharge records, prescriptions, and referral forms
Total time spent (in minutes): 38 min
Anticipated Discharge: Today
Subjective/Interval History
-
Date of Service: May 26, 2024
Objective Data
-
Labs:
Laboratory Results
05/26/24
06:48
Sodium 143
Potassium 4.1
Chloride 101
Carbon Dioxide 33 H
BUN 53 H
Creatinine 1.8 H
Glucose 112 H
Calcium 8.3 L
Vital Signs:
Vital Signs
Temp Pulse Resp BP Pulse Ox
97.8 F 92 18 111/46 99
05/26/24 11:20 05/26/24 11:20 05/26/24 11:20 05/26/24 11:20 05/26/24 11:20
I&O
11/19/24 11/20/24 11/21/24
06:59 06:59 06:59
Intake Total 840 / 840 1200 / 1200
Balance 840 / 840 1200 / 1200
--- NOTE | 2024-05-26 13:09 | W.DS.TRANS ---
Addendum entered and electronically signed by Easton Olmedo MD 05/26/24 15:04:
Dictation- [id number]
Original Note:
DC Summary - [facility] Supervisor
-
Discharge Instructions:
Discharge Diagnosis/Procedures Acute on chronic HFrEF-heart failure
Interstitial lung disease on oxygen
Atrial fibrillation
Anemia
Hypokalemia-low potassium
Chronically elevated LFTs-liver function tests
Valvular heart disease-coronary artery disease,
history of left pleural effusion
Chronic kidney disease stage III
Hypothyroidism
Psoriasis
Polymyalgia rheumatica
Hyperlipidemia-high cholesterol
Anxiety
GERD-acid reflux
Diet Restrict fluids to 48 oz,2 Gram Sodium
Driving Restrictions No driving
Blood Work BMP 1 week, LFTs 1 month. Thyroid function tests
in one month
Other Services VN,PT,OT
Specialty Instructions Weigh Daily
Instructions: *[facility] Heart Failure Instructions
Stand-Alone Forms:
Changes to Home Medications: Yes
Discharge Medications:
DC Medications w/original date entered in [employer]
venlafaxine 75 mg capsule,extended release 24 hr 75 mg PO DAILY Depression 12/09/17
prednisone 5 mg tablet 5 mg PO QPM Anti-Inflammatory 01/05/18
cholecalciferol (vitamin D3) 25 mcg (1,000 unit) tablet 1,000 units PO QPM Supplement 08/11/18
ezetimibe 10 mg tablet 10 mg PO QPM High cholesterol 08/11/18
therapeutic multivitamin 1 tab PO QPM Supplement 06/03/23
apixaban 2.5 mg tablet (Eliquis) 2.5 mg PO BID Blood clot prevention/tx #60 tabs 09/11/23
pantoprazole 40 mg tablet,delayed release 40 mg PO DAILY Gastrointestinal issue #30 tabs 09/11/23
potassium chloride 20 mEq tablet,extended release(part/cryst) 20 meq PO DAILY Electrolyte Repletion 11/12/23
chmc-sxtmo-sv2-ree-yey-habu-sterols 375 mg-100 mg-36 mg-54 mg capsule (Glucosamine Chondroitin PLUS) 1 cap PO BID Supplement 11/13/23
atorvastatin 40 mg tablet 40 mg PO DAILY High cholesterol 05/20/24
amiodarone 200 mg tablet 200 mg PO BID Arrhythmia #90 tabs 05/24/24
aspirin 81 mg chewable tablet 81 mg PO DAILY Blood clot prevention/tx #0 tabs 05/24/24
carvedilol 12.5 mg tablet 12.5 mg PO BID Heart Failure #60 tabs 05/24/24
dapagliflozin propanediol 10 mg tablet 10 mg PO DAILY Heart Failure #30 tabs 05/24/24
isosorbide mononitrate 30 mg tablet,extended release 24 hr 30 mg PO DAILY Heart disease/condition 30 days #30 tabs 05/24/24
levothyroxine 125 mcg tablet 125 mcg PO DAILY Thyroid #0 tabs 05/24/24
furosemide 40 mg tablet (Lasix) 60 mg (1.5 x 40 mg) PO DAILY@1600 Fluid retention/Swelling #30 tabs 05/26/24
furosemide 80 mg tablet (Lasix) 80 mg PO DAILY@0800 Fluid retention/Swelling #60 tabs 05/26/24
Home Medication Changes
dose change Lasix, Coreg
New Amiodarone
Pending Results: No
--- NOTE | 2024-05-26 15:45 | CM ---
PT recommended VN .
Pt requested [facility]
Pt accepted with [facility] .
Pt has daily home health aids at home
IMM signed on chart
Rosario thomas will drive her home.
PLAN Home with [facility]
[2024-05-26 16:02] LABS: LDH 357 U/L (120-246); Total Protein 5.6 g/dl (6.3-8.2)
== END 2024-05-26 14:15 | disposition home health service (06) | DRG 291 ==
LOC: 4 EAST ACU 18:00
PROVIDERS: Physician Assistant; Radiology Vascular & Interventional Radiology; Registered Nurse; ADMITTING PHYSICIAN Hospitalist; ATTENDING PHYSICIAN Hospitalist; EMERGENCY PHYSICIAN Student in an Organized Health Care Education/Training Program; FAMILY PHYSICIAN Family Medicine; OTHER PHYSICIAN Internal Medicine Cardiovascular Disease
PROC: 0W9B30Z Drainage of Left Pleural Cavity with Drainage Device, Percutaneous Approach (ICD-10-PCS; 2024-05-26)
DX: I13.0 Hypertensive heart and chronic kidney disease with heart failure and stage 1 through stage 4 chronic kidney disease, or unspecified chronic kidney disease (principal); I50.43 Acute on chronic combined systolic (congestive) and diastolic (congestive) heart failure; J84.9 Interstitial pulmonary disease, unspecified; I48.19 Other persistent atrial fibrillation; J98.11 Atelectasis; I48.3 Typical atrial flutter; J91.8 Pleural effusion in other conditions classified elsewhere; J96.10 Chronic respiratory failure, unspecified whether with hypoxia or hypercapnia; D63.8 Anemia in other chronic diseases classified elsewhere; E87.6 Hypokalemia; I25.10 Atherosclerotic heart disease of native coronary artery without angina pectoris; N18.32 Chronic kidney disease, stage 3b; E03.9 Hypothyroidism, unspecified; L40.50 Arthropathic psoriasis, unspecified; M35.3 Polymyalgia rheumatica; E78.00 Pure hypercholesterolemia, unspecified; F41.9 Anxiety disorder, unspecified; K21.9 Gastro-esophageal reflux disease without esophagitis; Z91.199 Patient's noncompliance with other medical treatment and regimen due to unspecified reason; F32.A Depression, unspecified; Z79.01 Long term (current) use of anticoagulants; Z95.5 Presence of coronary angioplasty implant and graft; Z96.653 Presence of artificial knee joint, bilateral; Z96.643 Presence of artificial hip joint, bilateral; Z87.891 Personal history of nicotine dependence; G47.33 Obstructive sleep apnea (adult) (pediatric); M06.9 Rheumatoid arthritis, unspecified; I27.20 Pulmonary hypertension, unspecified; I08.3 Combined rheumatic disorders of mitral, aortic and tricuspid valves; M19.90 Unspecified osteoarthritis, unspecified site; Z88.0 Allergy status to penicillin; Z90.49 Acquired absence of other specified parts of digestive tract; I87.2 Venous insufficiency (chronic) (peripheral); I42.9 Cardiomyopathy, unspecified; Z99.81 Dependence on supplemental oxygen; M79.7 Fibromyalgia; G89.4 Chronic pain syndrome; Z79.891 Long term (current) use of opiate analgesic; Z79.899 Other long term (current) drug therapy; Z79.890 Hormone replacement therapy; I5A Non-ischemic myocardial injury (non-traumatic); Z79.82 Long term (current) use of aspirin; R79.89 Other specified abnormal findings of blood chemistry; K44.9 Diaphragmatic hernia without obstruction or gangrene; M48.00 Spinal stenosis, site unspecified; Z66 Do not resuscitate; R74.01 Elevation of levels of liver transaminase levels
CPT/HCPCS: 88305; 32555; 71045; 71046; 76604; 80048; 80053; 80061; 82248; 82306; 82607; 82945; 83615; 83735; 83880; 83986; 84155; 84157; 84443; 84484; 85025; 85027; 87015; 87070; 87102; 87116; 87205; 88112; 89051; 93005; 93306; 93971; 96374; 97116; 97163; 97167; 97535; 99285

== ENCOUNTER 2024-08-11 18:43 | Inpatient (IN) | payer MEDICARE, BC, SELFPAY ==
[2024-08-11] VITALS (8 sets, daily range): BP systolic 100–145; BP diastolic 55–94; BMI 29.3; BMI 27.1
[2024-08-11 14:01] LABS: % Eosinophils 0.6 % (0-6); % Immature Granulocytes 0.5 % (0-0.5); % Lymphocytes 4.2 % (20.5-51.1); % Monocytes 3.9 % (1.7-9.3); % Neutrophils 90.8 % (42.2-75.2); Absolute Eosinophils 0.1 10^3/uL (0-0.7); Absolute Immature Granulocytes 0.1 10^3/uL (0-0.05); Absolute Lymphocytes 0.4 10^3/uL (1.2-3.4); Absolute Monocytes 0.4 10^3/uL (0.1-0.6); Absolute Neutrophils 8.9 10^3/uL (1.4-6.5); Hemoglobin 9.3 g/dL (12.0-16.0); Mean Corpuscular Hgb 26.1 pg (27.0-31.0); Mean Corpuscular Volume 86.8 fL (81.0-99.0); Mean Platelet Volume 9.9 fL (7.4-10.4); Nucleated Red Blood Cells % 0.2 %; Platelet Count 156 10^3/uL (130-400); Red Blood Cell Count 3.57 10^6/uL (4.20-5.40); Red Cell Dist. Width 21.9 % (11.5-14.5); White Blood Cell Count 9.8 10^3/uL (4.8-10.8)
[2024-08-11 14:24] LABS: NT-proBNP 8710 pg/ml
[2024-08-11 15:15] LABS: ALT (SGPT) 49 U/L (0-35); AST (SGOT) 59 U/L (14-36); Albumin 3.4 g/dl (3.5-5.0); Alkaline Phosphatase 113 U/L (38-126); Blood Urea Nitrogen 66 mg/dl (7-17); Calcium 8.3 mg/dl (8.4-10.2); Carbon Dioxide 31 mmol/L (22-30); Chloride 98 mmol/L (98-107); Glucose 99 mg/dl (70-99); Potassium 3.7 mmol/L (3.5-5.1); Sodium 138 mmol/L (135-145); Total Bilirubin 1.7 mg/dl (0.2-1.3); eGFR 18.95
[2024-08-11] MEDS: KCL 40 MEQ PO (16:17)
--- NOTE | 2024-08-11 16:22 | ED.GENMED ---
History of Present Illness
General
Chief Complaint: Skin Problem
Time Seen by Provider: 08/11/24 15:29
History of Present Illness
History of Present Illness:
89-year-old female presents the emergency department for evaluation of worsening leg swelling and 7 pound weight gain since her last hospitalization. She has increasing dyspnea on exertion. Has a history of pleural effusion requiring
thoracentesis. She admits to noncompliance with her fluid restriction which is supposed to be 48 ounces, states she is easily 2 times this amount each day. She has been compliant with her medications. No chest pain or dyspnea at rest.
Past History
Past History
ED Past Medical History: CAD, CHF, Fibromyalgia, HTN, Hypercholesterolemia, Hypothyroidism, Other (Polymyalgia rheumatica, fatigue, psoriatic arthritis, chronic neck pain, Spinal stenosis, Ulcers, headache, PNA, Interstitial lung disease, Hiatal
hernia, ULcer) and Other (Interstitial lung disease uses O2 at nighttime)
ED Past Surgical History: Cardiac (Stents X3), Cholecystectomy, Orthopedic (Back surgery. You Knee replacements, Laminectomy with fusion, right foot surgery, ) and Other (Hemorrhoidectomy)
Social History
Tobacco: Former smoker
Alcohol: Occasional
Drug: None
Personal:
Living: alone (Daughter staying with patient at this time 09/09/22)
Employment: Retired
Family History
Family History: Other (Noncontributory)
Review of Systems
Review of Systems
Allergies reviewed?: Yes
All Other Systems: ROS reviewed and negative except as documented in HPI and ROS
Phy Exam
Physical Exam
Physical Exam:
GEN: Well appearing, NAD, WDWN
HEENT: Oral mucosa moist, no scleral icterus
Cardiac: Regular rate
Lung: No respiratory distress, no tachypnea, decreased L lower breath sounds
MSK: No gross deformity or injuries
Skin: Good color, no pallor or jaundice, no rashes, 4+ pitting edema bilateral lower extremities
Neuro: AO x3, moves all extremities freely
Psych: Calm, cooperative
Course
Orders/Labs/Results
Orders:
Orders
08/11/24 13:39
ECG [Electrocardiogram (*1)] Urgent
Reason for Study: Shortness of Breath
EKG- Treatment ONCE
08/11/24 13:52
Complete Blood Count/With Diff Urgent
Comprehensive Metabolic Panel Urgent
NT-proBNP Urgent
08/11/24 15:42
Furosemide [Lasix] 60 mg IV NOW STA
Potassium Chloride [KCl] 40 meq PO NOW STA
CR Chest - 2 Views Urgent
Comment:
Reason For Exam: SOB
Abnormal Lab Results
08/11/24
13:52
RBC 3.57 L 10^6/uL
(4.20-5.40)
Hgb 9.3 L g/dL
(12.0-16.0)
Hct 31.0 L %
(37.0-47.0)
MCH 26.1 L pg
(27.0-31.0)
MCHC 30.0 L g/dL
(33.0-37.0)
RDW 21.9 H %
(11.5-14.5)
Abs Immat Gran (auto) 0.1 H 10^3/uL
(0-0.05)
Absolute Neuts (auto) 8.9 H 10^3/uL
(1.4-6.5)
Absolute Lymphs (auto) 0.4 L 10^3/uL
(1.2-3.4)
Neutrophils % 90.8 H %
(42.2-75.2)
Lymphocytes % 4.2 L %
(20.5-51.1)
Carbon Dioxide 31 H mmol/L
(22-30)
BUN 66 H mg/dl
(7-17)
Creatinine 2.4 H mg/dL
(0.6-1.0)
Calcium 8.3 L mg/dl
(8.4-10.2)
Total Bilirubin 1.7 H mg/dl
(0.2-1.3)
AST 59 H U/L
(14-36)
ALT 49 H U/L
(0-35)
Total Protein 6.0 L g/dl
(6.3-8.2)
Albumin 3.4 L g/dl
(3.5-5.0)
08/11/24 13:52
08/11/24 13:52
Vital Signs
Initial and Last Documented VS:
Initial Vital Signs
Temp Pulse Resp BP Pulse Ox
98.2 F 90 20 100/55 95
08/11/24 13:36 08/11/24 13:36 08/11/24 13:36 08/11/24 13:36 08/11/24 13:36
Last Documented Vital Signs
Temp Pulse Resp BP Pulse Ox
98.2 F 91 18 135/74 92
08/11/24 13:36 08/11/24 16:30 08/11/24 16:30 08/11/24 16:26 08/11/24 16:39
MDM/Problems Addressed
MDM/Problems Addressed:
Patient's acute exacerbation of CHF is most likely due to noncompliance with fluid restriction. She is markedly hypervolemic and there is signs of left pleural effusion on x-ray. She is quite functionally debilitated due to the degree of edema and
thus is suitable for inpatient management
*Critical Care Note
Total Time (30-74mins, 75-104mins- exclusive of procedures): Not Applicable
ED Attending Note
-
Portions of this chart may have been created with voice recognition software.� Occasional wrong word or��sound alike� substitutions may have occurred due to the inherent limitations of voice recognition software.
Discharge Plan
Departure
Patient Disposition: Admit
Date of Disposition: 08/11/24
Time of Disposition: 16:37
Admit to: Telemetry
Presentation/result/management discussed w/ accepting MD/DO: Hospitalist
Discharge Problem:
Acute on chronic heart failure with reduced ejection fraction (HFrEF, <= 40%)
Prescriptions:
No Action
venlafaxine 75 MG capsule,extended release 24hr
75 mg PO HS
prednisone 5 MG tablet
5 mg PO DAILY
Patient Comments:
ezetimibe 10 MG tablet
10 mg PO QPM
therapeutic multivitamin Tablet
1 tab PO DAILY
Eliquis 2.5 mg Tablet
2.5 mg PO BID Qty: 60 11RF
potassium chloride 20 mEq tablet,ER particles/crystals
20 meq PO BID
Patient Comments:
05/20/24: Patient supposed to take 2 tablets, but they are too big so she only takes 1
atorvastatin 40 mg tablet
40 mg PO DAILY
carvedilol 12.5 mg Tablet
12.5 mg PO BID Qty: 60 0RF
aspirin 81 mg Tablet,Chewable
81 mg PO DAILY Qty: 0 0RF
dapagliflozin propanediol 10 mg Tablet
10 mg PO DAILY Qty: 30 0RF
isosorbide mononitrate 30 mg Tablet Extended Release 24 Hr
30 mg PO DAILY 30 Days Qty: 30 0RF
levothyroxine 125 mcg Tablet
125 mcg PO DAILY Qty: 0 0RF
famotidine [Pepcid] 20 mg Tablet
20 mg PO BID
furosemide [Lasix] 40 mg tablet
60 mg PO QPM
amiodarone 200 mg tablet
200 mg PO DAILY
furosemide [Lasix] 80 mg tablet
80 mg PO DAILY
pantoprazole 40 mg tablet,delayed release (DR/EC)
40 mg PO HS
Interventions
Interventions:
*Risk Screen - Suicide Last Done: 08/11/24 13:36
*General Assessment Last Done: 08/11/24 15:47
*Neglect/Abuse Screening Last Done: 08/11/24 15:47
ED- Fall Risk Assessment Last Done: 08/11/24 15:47
*ED COVID-19 Vaccine History Last Done: 08/11/24 15:47
ED-Skin Assessment Last Done: 08/11/24 16:38
Discharge Date and Time
Print Language: UKRAINIAN
[2024-08-11] MEDS: LASIX 60 MG IV (16:24)
--- NOTE | 2024-08-11 16:51 | PHANOTE ---
med rec note- patient has blister pack with her, last night evening 08/10/24 medication were still in it, this morning am meds are missing and tonight 08/11/24 were open and falling out
--- NOTE | 2024-08-11 18:15 | HPS.HSE ---
Family Physician
-
Family Physician: Wilbert Figueroa MD
Chief Complaint
-
weight gain, swelling
History of Present Illness
89 y/o F, hx of CHF, CAD, HTN, HLD, ILD on home O2 (2L) presents to ER with 7 lb weight gain and LE Edema. She reports increasing LOVELACE. no chest pain. Admits to noncompliance with oral fluid restriction (stating she drinks twice the restriction
amount). Also not compliant with compression therapy. Was seen at Cardiology office but states no changes were made.
in ER, BNP 8710 and given IV Lasix + potassium.
Medical History
Past Medical History
Past Medical History: Reports Other (CHF, CAD, HTN, HLD, ILD on home O2 (2L))
Past Surgical History: Reports Cardiac, Cholecystectomy and Orthopedic
Social History
Alcohol: None
Drug: None
Living: With Family
Family History
Family History: Not pertinent
Allergies / Home Medications
Allergies reflects when Allergies were last updated in [employer].
Home Medications with original date entered in [employer]
Allergy/Medication List:
Allergies
Allergy/AdvReac Type Severity Reaction Status Date / Time
hydroxychloroquine sulfate Allergy Rash Verified 08/11/24 13:37
[From Plaquenil]
Penicillins Allergy Itching Verified 08/11/24 13:37
Home Medications
venlafaxine 75 mg capsule,extended release 24 hr 75 mg PO HS Depression 12/09/17
prednisone 5 mg tablet 5 mg PO DAILY Anti-Inflammatory 01/05/18
ezetimibe 10 mg tablet 10 mg PO QPM High cholesterol 08/11/18
therapeutic multivitamin 1 tab PO DAILY Supplement 06/03/23
apixaban 2.5 mg tablet (Eliquis) 2.5 mg PO BID Blood clot prevention/tx #60 tabs 09/11/23
potassium chloride 20 mEq tablet,extended release(part/cryst) 20 meq PO BID Electrolyte Repletion 11/12/23
atorvastatin 40 mg tablet 40 mg PO DAILY High cholesterol 05/20/24
aspirin 81 mg chewable tablet 81 mg PO DAILY Blood clot prevention/tx #0 tabs 05/24/24
carvedilol 12.5 mg tablet 12.5 mg PO BID Heart Failure #60 tabs 05/24/24
dapagliflozin propanediol 10 mg tablet 10 mg PO DAILY Heart Failure #30 tabs 05/24/24
isosorbide mononitrate 30 mg tablet,extended release 24 hr 30 mg PO DAILY Heart disease/condition 30 days #30 tabs 05/24/24
levothyroxine 125 mcg tablet 125 mcg PO DAILY Thyroid #0 tabs 05/24/24
amiodarone 200 mg tablet 200 mg PO DAILY Arrhythmia 08/11/24
famotidine 20 mg tablet (Pepcid) 20 mg PO BID 08/11/24
furosemide 40 mg tablet (Lasix) 60 mg PO QPM Fluid retention/Swelling 08/11/24
furosemide 80 mg tablet (Lasix) 80 mg PO DAILY Fluid retention/Swelling 08/11/24
pantoprazole 40 mg tablet,delayed release 40 mg PO HS Gastrointestinal issue 08/11/24
Review of Systems
-
A 12 point ROS was completed and negative except as noted: Yes
Physical Exam
Vital Signs
Vital Signs
Temp Pulse Resp BP Pulse Ox
98.2 F 91 18 135/74 92
08/11/24 13:36 08/11/24 16:30 08/11/24 16:30 08/11/24 16:26 08/11/24 16:39
Physical Exam
General: No Apparent Distress
HEENT: NormoCephalic and Anicteric
Respiratory: Crackles
Cardiac: S1/S2 and Regular Rhythm
Musculoskeletal: Edema, Left Lower Extremity and Edema, Right Lower Extremity
Neuro: AO x 3
Psych: Calm
Laboratory Results
-
08/11/24 13:52
08/11/24 13:52
Laboratory Results
Total Bilirubin 1.7 mg/dl (0.2-1.3) H 08/11/24 13:52
AST 59 U/L (14-36) H 08/11/24 13:52
ALT 49 U/L (0-35) H 08/11/24 13:52
Alkaline Phosphatase 113 U/L (38-126) 08/11/24 13:52
Data Reviewed
-
Lab Data: Labs Reviewed by me
Impression/Plan
-
Assessment:
Acute on chronic HFrEF
- IV [id number] BID; monitor I/Os, weights, Lytes
- CHF education as not following fluid restriction
- GDMT: BB/Fargixa
- [facility] Cards
CAD
PAF
Essential HTN
- continue Amiodarone/Coreg/Eliquis/Imdur
HLD - statin/zetia
Chronic hypoxic respiratory failure on 2L NC
ILD on home O2 (2L)
- continue chronic steroids
DVT ppx: Eliquis
Code: DNR/DNI
--- NOTE | 2024-08-11 20:15 | PTCARENOTE ---
Received patient from ED via stretcher. Patient pulled over from stretcher to bed. AAOx1-2, patient forgetful with location and date. Oriented patient to room and placed call valdes within reach.
[2024-08-11] MEDS: KCL 20 MEQ PO (21:16)
[2024-08-11] MEDS: COREG 12.5 MG PO (21:16)
[2024-08-11] MEDS: ELIQUIS 2.5 MG PO (21:16)
[2024-08-11] MEDS: PROTONIX 40 MG PO (21:16)
[2024-08-11] MEDS: PEPCID 20 MG PO (21:16)
[2024-08-11] MEDS: EFFEXOR XR 75 MG PO (21:17)
[2024-08-12] VITALS (8 sets, daily range): BP systolic 97–144; BP diastolic 49–71; PULSE 82; O2SAT 100; BMI 27.0
[2024-08-12] MEDS: TYLENOL 650 MG PO (03:44)
[2024-08-12] MEDS: SYNTHROID 125 MCG PO (05:41)
--- NOTE | 2024-08-12 06:00 | PTCARENOTE ---
Patient reports 8/10 pain to right knee, states not able to fully bend. Small open area to right lateral knee weeping large amount of serosanguineous fluid. Cleaned and covered with silicone border foam.
[2024-08-12 07:25] LABS: Mean Corpuscular Hgb 26.5 pg (27.0-31.0); Mean Corpuscular Volume 85.3 fL (81.0-99.0); Mean Platelet Volume 10.3 fL (7.4-10.4); Platelet Count 141 10^3/uL (130-400); White Blood Cell Count 9.4 10^3/uL (4.8-10.8)
[2024-08-12 07:59] LABS: Blood Urea Nitrogen 70 mg/dl (7-17); Calcium 8.3 mg/dl (8.4-10.2); Carbon Dioxide 31 mmol/L (22-30); Chloride 104 mmol/L (98-107); Estimated Creatinine Clearance 14 ml/min; Glucose 55 mg/dl (70-99); Magnesium 2.7 mg/dl (1.6-2.3); Potassium 4.5 mmol/L (3.5-5.1); Sodium 140 mmol/L (135-145); eGFR 17.22
[2024-08-12] MEDS: THERAGRAN 1 TABLET PO (08:14)
[2024-08-12] MEDS: DELTASONE 5 MG PO (08:14)
[2024-08-12] MEDS: ELIQUIS 2.5 MG PO ×2 (08:14→21:03)
[2024-08-12] MEDS: IMDUR (EXTENDED RELEASE) 30 MG PO (08:14)
[2024-08-12] MEDS: PACERONE 200 MG PO (08:14)
[2024-08-12] MEDS: LIPITOR 40 MG PO (08:14)
[2024-08-12] MEDS: COREG 12.5 MG PO (08:14)
[2024-08-12] MEDS: KCL 20 MEQ PO (08:14)
[2024-08-12] MEDS: LOW STRENGTH ASPIRIN 81 MG PO (08:14)
[2024-08-12] MEDS: FARXIGA PO (08:15)
[2024-08-12] MEDS: LASIX 60 MG IV ×2 (08:15→17:17)
[2024-08-12 08:33] LABS: Glucose - Point of Care 110 mg/dl (70-99)
--- NOTE | 2024-08-12 09:05 | W.PN.HOSP.TC ---
Today's Communication/Plan
-
see A/P
Assessment / Plan
Assessment / Plan
HPI: 89 y/o F, hx of CHF, CAD, HTN, HLD, ILD on home O2 (2L) presented with 7 lb weight gain and LE Edema. She reports increasing LOVELACE. No chest pain.
Admitted to noncompliance with oral fluid restriction (stating she drinks twice the restriction amount). Also not compliant with compression therapy. Was seen at Cardiology office but states no changes were made.
In ER, BNP 8710 and given IV Lasix + potassium.
A/P:
# Acute on chronic HFrEF
recent echo 05/2024: EF 35-40%. Moderate mitral regurgitation. Moderate mitral stenosis. Mild to moderate aortic stenosis. Moderate-severe tricuspid regurgitation. PASP 50-55 mmHg.
Cont IV Lasix 60 mg BID; monitor I/Os, weights, Lytes
CHF education as not following fluid restriction
GDMT: BB/Imdur/Farxiga
DCA Cards consulted
# Acute metabolic encephalopathy/ hypoactive delirium
Pt is drowsy, but arousable with verbal stimulus
Apparently no h/o dementia per son. Per son, pt's baseline MS is AOX3 and fully conversant
Check UA/Cx, blood Cx,
cover with empiric ceftriaxone for now
# Mild LFT elevation likely 2/2 acute CHF
follow LFT
# Hypoglycemia likely 2/2 poor PO intake
add holding parameter to Farxiga
# CAD
# PAF
# Essential HTN
continue Amiodarone/Coreg/Eliquis/Imdur
# HLD - statin/zetia
# Chronic hypoxic respiratory failure on 2L NC
# ILD on home O2 (2L)
continue chronic steroids
DVT ppx: Eliquis
Code: DNR/DNI
DW RN
updated son on the phone
total time spent 51 min
Anticipated Discharge: 24 - 48 hours
Subjective/Interval History
-
Date of Service: August 12, 2024
Objective Data
-
Labs:
Laboratory Results
08/12/24
06:49
WBC 9.4
Hgb 9.0 L
Hct 29.0 L
Plt Count 141
Sodium 140
Potassium 4.5
Chloride 104
Carbon Dioxide 31 H
BUN 70 H
Creatinine 2.6 H
Glucose 55 L*
Calcium 8.3 L
Vital Signs:
Vital Signs
Temp Pulse Resp BP Pulse Ox
36.3 C 91 20 127/71 99
08/12/24 07:25 08/12/24 08:14 08/12/24 07:25 08/12/24 08:14 08/12/24 07:55
I&O
08/11/24 08/12/24 08/13/24
06:59 06:59 06:59
Intake Total 375 / 375
Balance 375 / 375
Review of Systems
-
All other systems: Reviewed and negative
Physical Exam
-
General: Well Developed, Comfortable, Respiratory Distress (chronic) and Appears Chronically Ill
HEENT: Normocephalic, Atraumatic, Moist Mucous Membranes and Oxygen (2L NC )
Respiratory: Clear to Auscultation and Non Labored Respirations; Negative Accessory Resp Muscle Use
Cardiac: Regular Rhythm, S1/S2 and Murmur (systolic murmur ); Negative Rub or Gallop
GI: Soft, Nontender, Nondistended and Normal Bowel Sounds; Negative Organomegaly
Rectal: Deferred by Provider
Musculoskeletal: No Clubbing, No Cyanosis, Edema, Right Lower Extrem (mild) and Edema, Left Lower Extrem (mild)
Neuro: Awake
Psych: Calm
Data Reviewed
-
Labs: Labs Reviewed by me
--- NOTE | 2024-08-12 09:19 | CON.CAR ---
Addendum entered and electronically signed by Thaddeus Santos MD 08/12/24 14:34:
I saw and examined the patient.
The ELECTRIC ORGAN CHECKER or PA's note was reviewed and I agree with the note.
Comment: General: Well developed, well nourished in NAD.
Neck: Supple, no JVD, HJR, carotids +2 B/L, no bruits bilaterally.
Heart: Non displaced PMI, RRR, no murmurs, No S3, S4, no rubs.
Lungs: Scattered rhonchi throughout
Extremities: Moderate lower extremity edema bilaterally with chronic venous stasis changes
Neuro: Grossly nonfocal, awake, alert and oriented x3.
Leigh has a history of chronic systolic CHF, persistent atrial flutter/atrial fibrillation on chronic Eliquis, CAD, cardiomyopathy with ejection fraction of 35-40%, CKD 3B, hypertension, mild to moderate aortic stenosis, moderate MR with mild to
moderate MS, psoriatic arthritis, polymyalgia rheumatica, hyperlipidemia with statin intolerance, interstitial lung disease on chronic oxygen, hypothyroidism. She presents with increasing lower extremity edema and shortness of breath and is
admitted with acute systolic CHF. Will treat with IV Lasix and follow renal function. Of note creatinine is 2.6 on 08/12 and normally runs at 1.8.
Original Note:
Consultation
Consultation Request
Date/Time Consultation Requested: 08/11/24 at 2002
Date/Time Consultation Performed: 08/12/24 at 0933
Requesting Provider: Dr. Pires
Performing Provider: Dr. Brown
Reason for Consultation: Acute HF
Medical History
-
History of Present Illness:
Patient came to [facility] yesterday with increased SOB and edema and was admitted with CHF and cardiology was consulted for same. Patient was last admitted to 05/2024 with acute HF, but has managed to stay out of the hospital for the last few months.
Patient reports she has been compliant with Lasix 80 mg AM and 60 mg PM daily, but that she is not following any fluid restriction. Patient has noticed increased LOVELACE and LE edema. Patient thinks she is up 7 lbs from her dry weight. She denies any
chest pain, palpitations, or dizziness.
PMH:
Chronic HFrEF
Persistent typical atrial flutter
Persistent atrial fibrillation
s/p successful CV 09/08/23
recurrent Afib/flutter since 09/09/23
Chronic Eliquis OAC
CAD
PCI LAD 2004 ([facility])
PCI RCA 07/2010 ([facility])
s/p OM stent 10/08/17 with residual 40% stenosis of mid LAD and 50-60% stenosis of prox PDA
s/p 2.5 mm Xience to mid LAD 09/04/23
h/o left pleural effusion
s/p thoracentesis w/ 900 cc removed 09/29/23, 900 cc removed 04/06/24, 800 cc removed 05/04/24
Cardiomyopathy, EF 35-40% by echo 05/21/24
CKD 3b
HTN
Mild to mod mean gradient 13 mmHg and TAM 1.2 cm sq by echo 05/21/24
Mod MR, mild to mod MS with mean gradient 8 mmHg
Psoriatic arthritis
Polymyalgia rheumatica
Hyperlipidemia
h/o statin intolerance
Interstitial lung disease on chronic O2 at night
Hypothyroidism
Anxiety
Fibromyalgia
Hx cervical radiculopathy
Hx left rotator cuff tear
R radial pseudoaneurysm s/p repair 11/13/2023
Urethral stone w/ hydronephrosis 01/2018
Shingles 09/2022
Syncope 09/2022 in setting of GI illness/dehydration
Chronic pain syndrome on oxycodone daily
Past Medical History
Past Medical History: Other (See HPI)
Past Surgical History: Cardiac (PCI LAD, RCA, OM), Cholecystectomy and Orthopedic
Social History
Tobacco: Former Smoker
Alcohol: None
Drug: None
Living: Alone
Employment: Retired
Family History
Family History: CAD and Hypertension
Allergies / Home Medications
Allergy/AdvReac Type Severity Reaction Status Date / Time
hydroxychloroquine sulfate Allergy Rash Verified 08/11/24 13:37
[From Plaquenil]
Penicillins Allergy Itching Verified 08/11/24 13:37
�Medication �Instructions �Recorded �Confirmed �Type
venlafaxine 75 mg capsule,extended 75 mg PO HS Depression 12/09/17 08/11/24 History
release 24 hr
prednisone 5 mg tablet 5 mg PO DAILY Anti-Inflammatory 01/05/18 08/11/24 History
ezetimibe 10 mg tablet 10 mg PO QPM High cholesterol 08/11/18 08/11/24 History
therapeutic multivitamin 1 tab PO DAILY Supplement 06/03/23 08/11/24 History
apixaban 2.5 mg tablet (Eliquis) 2.5 mg PO BID Blood clot 09/11/23 08/11/24 Rx
prevention/tx #60 tabs
potassium chloride 20 mEq 20 meq PO BID Electrolyte Repletion 11/12/23 08/11/24 History
tablet,extended release(part/cryst)
atorvastatin 40 mg tablet 40 mg PO DAILY High cholesterol 05/20/24 08/11/24 History
aspirin 81 mg chewable tablet 81 mg PO DAILY Blood clot 05/24/24 08/11/24 Rx
prevention/tx #0 tabs
carvedilol 12.5 mg tablet 12.5 mg PO BID Heart Failure #60 05/24/24 08/11/24 Rx
tabs
dapagliflozin propanediol 10 mg 10 mg PO DAILY Heart Failure #30 05/24/24 08/11/24 Rx
tablet tabs
isosorbide mononitrate 30 mg 30 mg PO DAILY Heart 05/24/24 08/11/24 Rx
tablet,extended release 24 hr disease/condition 30 days #30 tabs
levothyroxine 125 mcg tablet 125 mcg PO DAILY Thyroid #0 tabs 05/24/24 08/11/24 Rx
amiodarone 200 mg tablet 200 mg PO DAILY Arrhythmia 08/11/24 08/11/24 History
famotidine 20 mg tablet (Pepcid) 20 mg PO BID 08/11/24 08/11/24 History
furosemide 40 mg tablet (Lasix) 60 mg PO QPM Fluid 08/11/24 08/11/24 History
retention/Swelling
furosemide 80 mg tablet (Lasix) 80 mg PO DAILY Fluid 08/11/24 08/11/24 History
retention/Swelling
pantoprazole 40 mg tablet,delayed 40 mg PO HS Gastrointestinal issue 08/11/24 08/11/24 History
release
Review of Systems
-
History Source: Patient
All other systems: Negative unless noted
Physical Exam
Vital Signs
Temp Pulse Resp BP Pulse Ox
97.3 F 91 20 127/71 99
08/12/24 07:25 08/12/24 08:14 08/12/24 07:25 08/12/24 08:14 08/12/24 07:55
General: NAD, AAO x3
HEENT: EOMI, MMM
Heart: Afib on tele
Lungs: Wearing oxygen at 2 L. No audible wheeze.
Abd: ND
Ext: No B/L LE edema
Neuro: Nonfocal
Lab Results
08/12/24 06:49
08/12/24 06:49
Ooo-I-Bvfdoddklhs Pept 8710 pg/ml 08/11/24 13:52
Impression / Plan
-
PCP: Dr. Figueroa
Cardiology: Dr. Santos
Impression:
Admitted with acute HF and CAMRON 08/11/24
Acute on chronic HFrEF
Persistent typical atrial flutter
Persistent atrial fibrillation
s/p successful CV 09/08/23
recurrent Afib/flutter since 09/09/23
Chronic Eliquis OAC
CAD
PCI LAD 2004 ([facility])
PCI RCA 07/2010 ([facility])
s/p OM stent 10/08/17 with residual 40% stenosis of mid LAD and 50-60% stenosis of prox PDA
s/p 2.5 mm Xience to mid LAD 09/04/23
Small B/L pleural effusions
s/p left thoracentesis w/ 900 cc removed 09/29/23, 900 cc removed 04/06/24, 800 cc removed 05/04/24
Cardiomyopathy, EF 35-40% by echo 05/21/24
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
HTN
Mild to mod mean gradient 13 mmHg and TAM 1.2 cm sq by echo 05/21/24
Mod MR, mild to mod MS with mean gradient 8 mmHg
Psoriatic arthritis
Polymyalgia rheumatica
Hyperlipidemia
h/o statin intolerance
Interstitial lung disease on chronic O2 at night
Hypothyroidism
Anxiety
Fibromyalgia
Hx cervical radiculopathy
Hx left rotator cuff tear
R radial pseudoaneurysm s/p repair 11/13/2023
Urethral stone w/ hydronephrosis 01/2018
Shingles 09/2022
Syncope 09/2022 in setting of GI illness/dehydration
Chronic pain syndrome on oxycodone daily
Echo 01/06/18:�Mild LVH, EF 50-55% possible lateral hypokinesis, normal RV, severely dilated LA, Mild to moderate MR, Mild aortic stenosis, peak/mean gradient 29/16, aortic valve area 1.6 cm�, Mild TR, pulmonary pressure 51-56 mmHg
Echo October 2018: Ejection fraction 60-65 percent, mild MR, mild , mild-moderate AI�������
Echo 07/2020: EF 60-65%, mild with MPG 14 mm Hg, TAM 1.7 cm2.
Echo 03/04/23:�EF 55-60% with mild MR, mild , aortic root 4 cm, trace pericardial effusion
Echo 06/04/23: EF 55 to 60%, mild concentric LVH, mild mitral stenosis with mean transmitral gradient 6 mmHg, moderate MR, mild peak/mean gradient 22/13 mmHg and TAM 1.4 cm sq, trace TR with pulmonary artery systolic pressure 26 mmHg mildly
dilated aortic root
Echo 08/28/23: EF 40-45%, pleural effusion, not assessed
JIAN 09/08/23: EF 40-45%, mod to sev MR, evidence of
Echo 09/26/23: EF 30-35%, mod MR, mild AI, aortic sclerosis no stenosis, PASP 45 mmHg
Echo 05/21/2024: EF 35 to 40%, moderate MR, mild to mod MS with mean gradient of 8 mmHg, mild to mod with mean gradient of 13 mmHg aortic valve area 1.2 cm�, mod to sev TR with PAP of 50-55 mmHg
Plan:
-Patient came to [facility] yesterday with increased SOB and edema and was admitted with CHF and cardiology was consulted for same. Patient was last admitted to 05/2024 with acute HF, but has managed to stay out of the hospital for the last few months.
Patient reports she has been compliant with Lasix 80 mg AM and 60 mg PM daily, but that she is not following any fluid restriction. Patient has noticed increased LOVELACE and LE edema. Patient thinks she is up 7 lbs from her dry weight. She denies any
chest pain, palpitations, or dizziness.
-Weight is trending down. Last known dry weight was 154 lbs on 05/26/25 and patient weighs 152 lbs on 08/12/24.
-Cont Lasix 60 mg IV BID for now, but if no appreciable diuresis then would increase to 80 mg IV BID. Patient was taking Lasix 80 mg AM and 60 mg PM daily prior to admission.
-B/L pleural effusions are small. When patient previously had left-sided thoracentesis in 05/2024 her effusions were moderate to large. No plans for thoracentesis now.
-EF 35-40% by echo 05/21/24. and this was stable compared to echo from 09/26/23. No need to repeat echo.
-Outpatient dose of Coreg 12.5 mg BID has been continued
-No MARIANO/ARB/aldosterone antagonist due to CAMRON on CKD.
-Outpatient dose of Imdur ER 30 mg daily has been continued. Hydralazine previously stopped due to hypotension
-Outpatient dose of Farxiga 10 mg daily has been continued
-ECG reviewed by me looks like Afib with HR 107. No acute ST changes.
-Patient with known persistent Afib/flutter. Cont Coreg and amiodarone 200 mg daily for adjunct rate control.
-Continue Eliquis 2.5mg BID (age 89 and Cre 2.6).
-Cre up to 2.6 on 08/12/24. Baseline Cre closer to 1.8. Follow Cre while diuresing
-Outpatient doses of atorvastatin 40 mg daily and Zetia 10 mg daily have been continued.
[2024-08-12 10:34] LABS: Glucose - Point of Care 89 mg/dl (70-99)
[2024-08-12 11:09] LABS: Urine Albumin 1+ (Neg - Trace); Urine Bilirubin Negative (Negative); Urine Character Clear (Clear); Urine Color Yellow; Urine Glucose Negative (Negative); Urine Ketone Negative (Negative); Urine Leukocyte 2+ (Negative); Urine Nitrite Negative (Negative); Urine Occult Blood Negative (Negative); Urine Urobilinogen Negative (Neg - 1+)
[2024-08-12] MEDS: NSS (PRESERVATIVE FREE) 10 ML IV (11:18)
[2024-08-12] MEDS: ROCEPHIN 1000 MG IV (11:19)
[2024-08-12 11:42] LABS: Urine Amorphous Seen
[2024-08-12 11:43] LABS: Urine Hyaline Cast >15 /LPF (0-2)
[2024-08-12 11:44] LABS: Urine Red Blood Cell 0-2 /HPF (0-2)
[2024-08-12 11:47] LABS: Urine Bacteria Few (Negative)
--- NOTE | 2024-08-12 12:49 | WOUNDNOTE ---
[facility] RN NOTE: Reviewed chart and met with patient. Patient reports falling last week. She thinks she may have injured her right LE at that time. Patient has a small, full thickness tear just distal to lateral right knee. The base appears yellow.
Patient reports increased drainage with her recent weight gain. A large amount of serous drainage was discovered when removing dressing. Local wound care provided as ordered. Patient has venous stasis appearing skin to bilateral LE and + pedal
pulse. MARIANO applied and order confirmed with hospitalist. Ecchymotic areas cover arms and legs. Sacrum intact. Heels with stage 1 PI. No-sting barrier and adhesive foam applied to heels. Heels off-loaded with air cushion under calves. Static air
overlay added to order. Patient on turning schedule. Patient has several comorbidities including CHF, poor intake, and chronic respiratory failure. Wounds may worsen and new wounds may develop even with optimal care. Will follow as needed.
[2024-08-12 12:50] LABS: Glucose - Point of Care 179 mg/dl (70-99)
--- NOTE | 2024-08-12 13:13 | WOUNDNOTE ---
RIGHT LE WOUND
--- NOTE | 2024-08-12 13:14 | WOUNDNOTE ---
[facility] RN NOTE: Reviewed chart and met with patient. Patient reports falling last week. She thinks she may have injured her right LE at that time. Patient has a small, full thickness tear just distal to lateral right knee. The base appears yellow. The
periwound is soft and only painful when palpated. No odor or purulent drainage noted. Patient reports increased drainage with her recent weight gain. A large amount of serous drainage was discovered when removing dressing. Local wound care provided
as ordered. Patient has venous stasis appearing skin to bilateral LE and + pedal pulse. MARIANO applied and order confirmed with hospitalist. Ecchymotic areas cover arms and legs. Sacrum intact. Heels with stage 1 PI. No-sting barrier and adhesive foam
applied to heels. Heels off-loaded with air cushion under calves. Static air overlay added to order. Patient on turning schedule. Patient has several comorbidities including CHF, poor intake, and chronic respiratory failure. Wounds may worsen and
new wounds may develop even with optimal care. Will follow as needed.
[2024-08-12 16:57] LABS: Glucose - Point of Care 114 mg/dl (70-99)
[2024-08-12] MEDS: ZETIA 10 MG PO (17:20)
[2024-08-12] MEDS: KCL PO (21:02)
[2024-08-12] MEDS: COREG PO (21:02)
[2024-08-12] MEDS: PROTONIX 40 MG PO (21:04)
[2024-08-12] MEDS: EFFEXOR XR 75 MG PO (21:04)
[2024-08-12] MEDS: PEPCID 20 MG PO (21:04)
[2024-08-12 21:30] LABS: Glucose - Point of Care 331 mg/dl (70-99)
[2024-08-13 03:13] LABS: Glucose - Point of Care 144 mg/dl (70-99)
[2024-08-13 03:14] VITALS: BP 127/71
[2024-08-13] MEDS: SYNTHROID 125 MCG PO (04:07)
[2024-08-13 06:00] VITALS: BMI 27.1
[2024-08-13 07:00] VITALS: BP 137/80
[2024-08-13 07:01] LABS: Hematocrit 31.9 % (37.0-47.0); Hemoglobin 9.7 g/dL (12.0-16.0); Mean Corp Hgb Conc. 30.4 g/dL (33.0-37.0); Mean Corpuscular Hgb 25.9 pg (27.0-31.0); Mean Corpuscular Volume 85.1 fL (81.0-99.0); Mean Platelet Volume 10.3 fL (7.4-10.4); Platelet Count 153 10^3/uL (130-400); Red Blood Cell Count 3.75 10^6/uL (4.20-5.40); Red Cell Dist. Width 22.1 % (11.5-14.5); White Blood Cell Count 10.5 10^3/uL (4.8-10.8)
[2024-08-13 09:12] LABS: ALT (SGPT) 50 U/L (0-35); AST (SGOT) 64 U/L (14-36); Albumin 3.3 g/dl (3.5-5.0); Alkaline Phosphatase 105 U/L (38-126); Blood Urea Nitrogen 73 mg/dl (7-17); Calcium 8.3 mg/dl (8.4-10.2); Carbon Dioxide 23 mmol/L (22-30); Chloride 101 mmol/L (98-107); Estimated Creatinine Clearance 15 ml/min; Glucose 91 mg/dl (70-99); Magnesium 2.7 mg/dl (1.6-2.3); Potassium 4.5 mmol/L (3.5-5.1); Sodium 137 mmol/L (135-145); Total Bilirubin 1.5 mg/dl (0.2-1.3); Total Protein 6.2 g/dl (6.3-8.2); eGFR 18.95
--- NOTE | 2024-08-13 09:37 | W.PN.HOSP.TC ---
Today's Communication/Plan
-
see A/P
Assessment / Plan
Assessment / Plan
HPI: 89 y/o F, hx of CHF, CAD, HTN, HLD, ILD on home O2 (2L) presented with 7 lb weight gain and LE Edema. She reports increasing LOVELACE. No chest pain.
Admitted to noncompliance with oral fluid restriction (stating she drinks twice the restriction amount). Also not compliant with compression therapy. Was seen at Cardiology office but states no changes were made.
In ER, BNP 8710 and given IV Lasix + potassium.
A/P:
# Acute on chronic HFrEF
recent echo 05/2024: EF 35-40%. Moderate mitral regurgitation. Moderate mitral stenosis. Mild to moderate aortic stenosis. Moderate-severe tricuspid regurgitation. PASP 50-55 mmHg.
Cont IV Lasix 60 mg BID; monitor I/Os, weights, Lytes
CHF education as not following fluid restriction
GDMT: BB/Imdur/Farxiga
DCA Cards on board
# Acute metabolic encephalopathy/ hypoactive delirium , resolved
Pt has no h/o dementia per son. Per son, pt's baseline MS is AOX3 and conversant
MS improved, awake and conversant
Follow urine Cx, blood Cx,
cover with empiric ceftriaxone for now
# Chronic elevation of LFT
follow LFT
noted pt on amiodarone, defer to Card
# Hypoglycemia likely 2/2 poor PO intake
holding parameter to Farxiga
# CAD
# PAF
# Essential HTN
continue Amiodarone/Coreg/Eliquis/Imdur
# HLD - statin/zetia
# Chronic hypoxic respiratory failure on 2L NC
# ILD on home O2 (2L)
continue chronic steroids
DVT ppx: Eliquis
Code: DNR/DNI
DW RN
updated son on the phone
Dispo: PT OT recc
Anticipated Discharge: > 48 hours
Subjective/Interval History
-
Date of Service: August 13, 2024
Objective Data
-
Labs:
Laboratory Results
08/13/24 08/13/24
06:31 08:13
WBC 10.5
Hgb 9.7 L
Hct 31.9 L
Plt Count 153
Sodium Cancelled 137
Potassium Cancelled 4.5
Chloride Cancelled 101
Carbon Dioxide Cancelled 23
BUN Cancelled 73 H
Creatinine Cancelled 2.4 H
Glucose Cancelled 91
Calcium Cancelled 8.3 L
Total Bilirubin Cancelled 1.5 H
AST Cancelled 64 H
ALT Cancelled 50 H
Alkaline Phosphatase Cancelled 105
Vital Signs:
Vital Signs
Temp Pulse Resp BP Pulse Ox
36.9 C 86 20 137/80 97
08/13/24 07:00 08/13/24 07:00 08/13/24 07:00 08/13/24 07:00 08/13/24 07:00
I&O
08/12/24 08/13/24 08/14/24
06:59 06:59 06:59
Intake Total 1095 / 1095
Output Total 700 / 700
Balance 395 / 395
Review of Systems
-
All other systems: Reviewed and negative
Physical Exam
-
General: Well Developed, Comfortable, Respiratory Distress (chronic) and Appears Chronically Ill
HEENT: Normocephalic, Atraumatic, Moist Mucous Membranes and Oxygen (2L NC )
Respiratory: Clear to Auscultation and Non Labored Respirations; Negative Accessory Resp Muscle Use
Cardiac: Regular Rhythm, S1/S2 and Murmur (systolic murmur ); Negative Rub or Gallop
GI: Soft, Nontender, Nondistended and Normal Bowel Sounds; Negative Organomegaly
Rectal: Deferred by Provider
Musculoskeletal: No Clubbing, No Cyanosis, Edema, Right Lower Extrem (mild) and Edema, Left Lower Extrem (mild)
Neuro: Awake and Alert
Psych: Calm
Data Reviewed
-
Labs: Labs Reviewed by me
[2024-08-13] MEDS: ROCEPHIN 1000 MG IV (10:07)
[2024-08-13] MEDS: FLUSH (NSS) 2 FLUSH IV ×2 (10:07→18:28)
[2024-08-13] MEDS: NSS (PRESERVATIVE FREE) 10 ML IV (10:07)
[2024-08-13] MEDS: LASIX 60 MG IV (10:09)
[2024-08-13] MEDS: ELIQUIS 2.5 MG PO ×2 (10:11→20:27)
[2024-08-13] MEDS: IMDUR (EXTENDED RELEASE) 30 MG PO (10:12)
[2024-08-13] MEDS: PACERONE 200 MG PO (10:12)
[2024-08-13] MEDS: LOW STRENGTH ASPIRIN 81 MG PO (10:12)
[2024-08-13] MEDS: COREG 12.5 MG PO ×2 (10:12→20:26)
[2024-08-13] MEDS: LIPITOR 40 MG PO (10:12)
[2024-08-13] MEDS: DELTASONE 5 MG PO (10:12)
[2024-08-13] MEDS: KCL 20 MEQ PO (10:12)
[2024-08-13] MEDS: FARXIGA 10 MG PO (10:12)
[2024-08-13] MEDS: THERAGRAN 1 TABLET PO (10:13)
[2024-08-13 11:00] VITALS: BP 107/58
--- NOTE | 2024-08-13 11:09 | W.PN.CARDCBS ---
Addendum entered and electronically signed by Obinna Brown MD 08/13/24 15:14:
I saw and examined the patient.
The Sap Ppm Consultant's note was reviewed and I agree with the note.
Comment: Briefly, 89-year-old woman past medical history of heart failure with reduced ejection fraction, atrial fibrillation, ILD and CKD who presents in acute decompensated heart failure
Still appears volume overloaded on exam
Suspect she is still a few pounds above her dry weight
Would continue IV diuresis, Lasix dose increased to 80 mg twice daily
Wean oxygen as able
Follow renal function/electrolytes/daily standing weights
Marin wraps and Tubigrip's to the lower extremities as able
Rest per Ligia Rubio
Original Note:
Today's Communication / Plan
-
Continue diuresis but increase Lasix to 80 mg IV twice daily
Continue to monitor renal function and electrolytes
Blood culture and urine cultures pending, both negative after 24 hours
Continue empiric antibiotics per primary service
Impression / Plan
-
PCP: Dr. Figueroa
Cardiology: Dr. Santos
Impression:
Admitted 08/11/2024 with acute HF and CAMRON 08/11/24
Acute on chronic HFrEF, proBNP 8710
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
Persistent typical atrial flutter
Persistent atrial fibrillation
s/p successful CV 09/08/23
recurrent Afib/flutter since 09/09/23
Chronic Eliquis OAC
CAD
PCI LAD 2004 ([facility])
PCI RCA 07/2010 ([facility])
s/p OM stent 10/08/17 with residual 40% stenosis of mid LAD and 50-60% stenosis of prox PDA
s/p 2.5 mm Xience to mid LAD 09/04/23
Small B/L pleural effusions
s/p left thoracentesis w/ 900 cc removed 09/29/23, 900 cc removed 04/06/24, 800 cc removed 05/04/24
Cardiomyopathy, EF 35-40% by echo 05/21/24
HTN
Mild to mod mean gradient 13 mmHg and TAM 1.2 cm sq by echo 05/21/24
Mod MR, mild to mod MS with mean gradient 8 mmHg
Psoriatic arthritis
Polymyalgia rheumatica
Hyperlipidemia
h/o statin intolerance
Interstitial lung disease on chronic O2 at night
Hypothyroidism
Anxiety
Fibromyalgia
Hx cervical radiculopathy
Hx left rotator cuff tear
R radial pseudoaneurysm s/p repair 11/13/2023
Urethral stone w/ hydronephrosis 01/2018
Shingles 09/2022
Syncope 09/2022 in setting of GI illness/dehydration
Chronic pain syndrome on oxycodone daily
Echo 01/06/18:�Mild LVH, EF 50-55% possible lateral hypokinesis, normal RV, severely dilated LA, Mild to moderate MR, Mild aortic stenosis, peak/mean gradient 29/16, aortic valve area 1.6 cm�, Mild TR, pulmonary pressure 51-56 mmHg
Echo October 2018: Ejection fraction 60-65 percent, mild MR, mild , mild-moderate AI�������
Echo 07/2020: EF 60-65%, mild with MPG 14 mm Hg, TAM 1.7 cm2.
Echo 03/04/23:�EF 55-60% with mild MR, mild , aortic root 4 cm, trace pericardial effusion
Echo 06/04/23: EF 55 to 60%, mild concentric LVH, mild mitral stenosis with mean transmitral gradient 6 mmHg, moderate MR, mild peak/mean gradient 22/13 mmHg and TAM 1.4 cm sq, trace TR with pulmonary artery systolic pressure 26 mmHg mildly
dilated aortic root
Echo 08/28/23: EF 40-45%, pleural effusion, not assessed
JIAN 09/08/23: EF 40-45%, mod to sev MR, evidence of
Echo 09/26/23: EF 30-35%, mod MR, mild AI, aortic sclerosis no stenosis, PASP 45 mmHg
Echo 05/21/2024: EF 35 to 40%, moderate MR, mild to mod MS with mean gradient of 8 mmHg, mild to mod with mean gradient of 13 mmHg aortic valve area 1.2 cm�, mod to sev TR with PAP of 50-55 mmHg
Plan:
-Presented to emergency department 08/11/2024 with shortness of breath, increased edema and concern for acute on chronic heart failure.
-Symptomatically improving with ongoing IV diuresis but still looks volume overloaded. Current weight 153 on 08/13/2024 which is up 1 lb. Last known dry weight was 154 lbs on 05/26/25
-Will try increasing Lasix to 80 mg IV BID for now. Patient was taking Lasix 80 mg AM and 60 mg PM daily prior to admission.
-B/L pleural effusions are small. When patient previously had left-sided thoracentesis in 05/2024 her effusions were moderate to large. No plans for thoracentesis now.
-Abnormal LFTs, although stable. Continue to monitor and trend with diuresis
-EF 35-40% by echo 05/21/24. and this was stable compared to echo from 09/26/23. No need to repeat echo.
-Outpatient dose of Coreg 12.5 mg BID has been continued
-No MARIN/ARB/aldosterone antagonist due to CAMRON on CKD. Creat 2.4, baseline 1.8
-Follow creatinine with diuresis
-Outpatient dose of Imdur ER 30 mg daily has been continued. Hydralazine previously stopped due to hypotension
-Outpatient dose of Farxiga 10 mg daily has been continued
-Known persistent Afib/flutter. Cont Coreg and amiodarone 200 mg daily for adjunct rate control.
-Continue Eliquis 2.5mg BID (age 89 and Cre 2.4).
-Outpatient doses of atorvastatin 40 mg daily and Zetia 10 mg daily have been continued.
-TME which seems to have resolved. Urine culture and blood cultures negative x 24 hours. Prophylactic antibiotics per primary service ongoing
HPI 08/12/2024:
Patient came to [facility] yesterday with increased SOB and edema and was admitted with CHF and cardiology was consulted for same. Patient was last admitted to 05/2024 with acute HF, but has managed to stay out of the hospital for the last few months.
Patient reports she has been compliant with Lasix 80 mg AM and 60 mg PM daily, but that she is not following any fluid restriction. Patient has noticed increased LOVELACE and LE edema. Patient thinks she is up 7 lbs from her dry weight. She denies any
chest pain, palpitations, or dizziness.
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
Subjective
Date of Service: August 13, 2024
Patient seen and examined. Patient sitting in chair. Reports she had a restless night last night she just could not get settled. She still feels short of breath but feels her swelling is improving. Still on oxygen
Objective
Labs:
08/13/24 06:31
08/13/24 08:13
Labs
Hgb 9.7 g/dL (12.0-16.0) L 08/13/24 06:31
Hct 31.9 % (37.0-47.0) L 08/13/24 06:31
Plt Count 153 10^3/uL (130-400) 08/13/24 06:31
Sodium 137 mmol/L (135-145) 08/13/24 08:13
Potassium 4.5 mmol/L (3.5-5.1) 08/13/24 08:13
BUN 73 mg/dl (7-17) H 08/13/24 08:13
Creatinine 2.4 mg/dL (0.6-1.0) H 08/13/24 08:13
Glucose 91 mg/dl (70-99) 08/13/24 08:13
Vital Signs and I&O:
Vital Signs
Temp Pulse Resp BP Pulse Ox
98.5 F 86 20 137/80 97
08/13/24 07:00 08/13/24 07:00 08/13/24 07:00 08/13/24 10:12 08/13/24 07:00
Vital Signs
Temp Pulse Resp BP Pulse Ox
98.5 F 86 20 137/80 97
08/13/24 07:00 08/13/24 07:00 08/13/24 07:00 08/13/24 10:12 08/13/24 07:00
Intake & Output
08/11/24 08/12/24 08/13/24 08/14/24
06:59 06:59 06:59 06:59
Intake Total 1095 / 1095
Output Total 700 / 700
Balance 395 / 395
Physical Exam
Physical Exam
GEN: No distress, awake, Ox3, lying in chair wearing oxygen
HEENT: supple, anicteric, mmm
LUNGS: Crackles at bases bilaterally, no wheezes/rales, 2 L oxygen via nasal cannula
CV: Reg, S1/S2, 1/6 syst LSB, no murmur
ABD: soft, BS+, NT/ND
EXT: +1-2 bilateral lower extremity edema, right leg with significant ecchymosis and gauze/bandage around knee/lower leg with dried serous fluid, ecchymosis of bilateral upper extremities left greater than right
NEURO: Gross non-focal
SKIN: No rash, clubbing, cyanosis
[2024-08-13 15:40] VITALS: BP 108/67
--- NOTE | 2024-08-13 16:11 | CM ---
Addendum entered by Sadaf Pena 08/16/24 15:21:
Leigh is ready for discharge to home today. She is agreeable to [facility] after discharge. IMM provided; pt was having an emotional few days and gave verbal consent.
Original Note:
CM met with Leigh to complete IA. She lives alone in a 1 story home with 1 step to enter. She does not drive.
Leigh reports she is independent with ADLs, ambulates with a walker and has oxygen in the home from [employer]. She does mention a recent fall at home.
HX of [facility] and [facility]
Pharmacy [facility] [place]
PCP Dr Sunil Figueroa
PLAN: Will need PT OT for dc planning.
[2024-08-13] MEDS: ZETIA 10 MG PO (18:26)
[2024-08-13] MEDS: LASIX 80 MG IV (18:27)
[2024-08-13 19:49] VITALS: BP 123/65
[2024-08-13] MEDS: KCL PO ×2 (20:27→21:04)
[2024-08-13] MEDS: EFFEXOR XR 75 MG PO (21:03)
[2024-08-13] MEDS: PROTONIX 40 MG PO (21:03)
[2024-08-13 23:42] VITALS: BP 132/68
[2024-08-14 03:49] VITALS: BP 127/60
[2024-08-14] MEDS: SYNTHROID 125 MCG PO (05:31)
[2024-08-14 06:00] VITALS: BMI 26.8
[2024-08-14 07:25] VITALS: BP 139/74
--- NOTE | 2024-08-14 07:58 | W.PN.HOSP.TC ---
Today's Communication/Plan
-
# Acute on chronic HFrEF
Cont IV Lasix 60 mg BID; monitor I/Os, weights, Lytes
GDMT: BB/Imdur/Farxiga
DCA Cards on board - discuss w Cards plan for today
#CKD-BMP/labs pending this am
Assessment / Plan
Assessment / Plan
HPI: 89 y/o F, hx of CHF, CAD, HTN, HLD, ILD on home O2 (2L) presented with 7 lb weight gain and LE Edema. She reports increasing LOVELACE. No chest pain.
Admitted to noncompliance with oral fluid restriction (stating she drinks twice the restriction amount). Also not compliant with compression therapy. Was seen at Cardiology office but states no changes were made.
In ER, BNP 8710 and given IV Lasix + potassium.
A/P:
# Acute on chronic HFrEF
recent echo 05/2024: EF 35-40%. Moderate mitral regurgitation. Moderate mitral stenosis. Mild to moderate aortic stenosis. Moderate-severe tricuspid regurgitation. PASP 50-55 mmHg.
Cont IV Lasix 60 mg BID; monitor I/Os, weights, Lytes
CHF education as not following fluid restriction
GDMT: BB/Imdur/Farxiga
DCA Cards on board
# Acute metabolic encephalopathy/ hypoactive delirium , resolved
Pt has no h/o dementia per son. Per son, pt's baseline MS is AOX3 and conversant
MS improved, awake and conversant
Follow urine Cx, blood Cx, - urine contaminant, mixed iraida; BC NGTD
cover with empiric ceftriaxone for now
# Chronic elevation of LFT
follow LFT
noted pt on amiodarone, defer to Card
#CKD- creat 2.4 on admit and yesterday, (range 1.8 - 2.7 over the past year)
-BMP pending this am
-monitor while diuresing , monitor renal function and electrolytes
-avoid nephrotoxins
# Hypoglycemia likely 2/2 poor PO intake
holding parameter to Farxiga
-gluc 91 on 08/13 and pending this morning BMP
# CAD
# PAF
# Essential HTN
continue Amiodarone/Coreg/Eliquis/Imdur
# HLD - statin/zetia
# Chronic hypoxic respiratory failure on 2L NC
# ILD on home O2 (2L)
continue chronic steroids
DVT ppx: Eliquis
Code: DNR/DNI
DW RN
updated son on the phone
Dispo: PT OT rec HH
Anticipated Discharge: 24 - 48 hours
Subjective/Interval History
-
Date of Service: August 14, 2024
The patient has been urinating well on the IV Lasix BID. Still has weeping of the RL, and significant pitting edema b/l lower extremities.
She denies CP, no SOB, no fevers, she is back to baseline mentation, AAO x 3, she is on oxygen 2L
Decreased appetite.
Objective Data
-
Labs:
Laboratory Results
08/14/24
06:53
Sodium Pending
Potassium Pending
Chloride Pending
Carbon Dioxide Pending
BUN Pending
Creatinine Pending
Glucose Pending
Calcium Pending
Total Bilirubin Pending
AST Pending
ALT Pending
Alkaline Phosphatase Pending
Vital Signs:
Vital Signs
Temp Pulse Resp BP Pulse Ox
97.5 F 89 19 127/60 97
08/14/24 03:49 08/14/24 03:49 08/14/24 03:49 08/14/24 03:49 08/14/24 03:49
I&O
08/13/24 08/14/24 08/15/24
06:59 06:59 06:59
Intake Total 1095 / 1095 240 / 240
Output Total 700 / 700 450 / 450 1075 / 1075
Balance 395 / 395 -210 / -210 -1075 / -1074
Review of Systems
-
All other systems: Reviewed and negative
Physical Exam
-
General: Well Developed, Well Nourished and No Apparent Distress
HEENT: Normocephalic, Atraumatic and Moist Mucous Membranes
Respiratory: Crackles (left greater than right)
Cardiac: Regular Rhythm, S1/S2 and Murmur
GI: Soft, Nontender and Nondistended
Musculoskeletal: No Clubbing, No Cyanosis, Edema, Right Lower Extrem (3+ to thigh, bandaged for weeping) and Edema, Left Lower Extrem (3+ to thigh)
Skin: Warm and Dry
Neuro: AO x 3 and No Motor Deficits
Psych: Calm
[2024-08-14 08:10] LABS: ALT (SGPT) 49 U/L (0-35); AST (SGOT) 60 U/L (14-36); Albumin 3.1 g/dl (3.5-5.0); Alkaline Phosphatase 107 U/L (38-126); Blood Urea Nitrogen 74 mg/dl (7-17); Calcium 8.3 mg/dl (8.4-10.2); Carbon Dioxide 28 mmol/L (22-30); Chloride 102 mmol/L (98-107); Estimated Creatinine Clearance 16 ml/min; Glucose 90 mg/dl (70-99); Magnesium 2.8 mg/dl (1.6-2.3); Potassium 3.7 mmol/L (3.5-5.1); Sodium 141 mmol/L (135-145); Total Bilirubin 1.3 mg/dl (0.2-1.3); eGFR 19.94
[2024-08-14] MEDS: IMDUR (EXTENDED RELEASE) 30 MG PO (09:22)
[2024-08-14] MEDS: PACERONE 200 MG PO (09:22)
[2024-08-14] MEDS: KCL 20 MEQ PO ×2 (09:22→20:35)
[2024-08-14] MEDS: COREG 12.5 MG PO ×2 (09:22→20:30)
[2024-08-14] MEDS: LOW STRENGTH ASPIRIN 81 MG PO (09:22)
[2024-08-14] MEDS: FARXIGA 10 MG PO (09:23)
[2024-08-14] MEDS: DELTASONE 5 MG PO (09:23)
[2024-08-14] MEDS: LIPITOR 40 MG PO (09:23)
[2024-08-14] MEDS: THERAGRAN 1 TABLET PO (09:23)
[2024-08-14] MEDS: ELIQUIS 2.5 MG PO ×2 (09:23→20:30)
[2024-08-14] MEDS: LASIX 80 MG IV (09:23)
[2024-08-14] MEDS: ROCEPHIN 1000 MG IV (11:06)
[2024-08-14] MEDS: NSS (PRESERVATIVE FREE) 10 ML IV (11:06)
[2024-08-14 11:50] VITALS: BP 112/50
--- NOTE | 2024-08-14 12:06 | W.PN.CARDCBS ---
Today's Communication / Plan
-
Trial of IV Bumex in place of Lasix
Impression / Plan
-
PCP: Dr. Figueroa
Cardiology: Dr. Santos
Impression:
Admitted 08/11/2024 with acute HF and CAMRON 08/11/24
Acute on chronic HFrEF, proBNP 8710
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
Persistent typical atrial flutter
Persistent atrial fibrillation
s/p successful CV 09/08/23
recurrent Afib/flutter since 09/09/23
Chronic Eliquis OAC
CAD
PCI LAD 2004 ([facility])
PCI RCA 07/2010 ([facility])
s/p OM stent 10/08/17 with residual 40% stenosis of mid LAD and 50-60% stenosis of prox PDA
s/p 2.5 mm Xience to mid LAD 09/04/23
Small B/L pleural effusions
s/p left thoracentesis w/ 900 cc removed 09/29/23, 900 cc removed 04/06/24, 800 cc removed 05/04/24
Cardiomyopathy, EF 35-40% by echo 05/21/24
HTN
Mild to mod mean gradient 13 mmHg and TAM 1.2 cm sq by echo 05/21/24
Mod MR, mild to mod MS with mean gradient 8 mmHg
Psoriatic arthritis
Polymyalgia rheumatica
Hyperlipidemia
h/o statin intolerance
Interstitial lung disease on chronic O2 at night
Hypothyroidism
Anxiety
Fibromyalgia
Hx cervical radiculopathy
Hx left rotator cuff tear
R radial pseudoaneurysm s/p repair 11/13/2023
Urethral stone w/ hydronephrosis 01/2018
Shingles 09/2022
Syncope 09/2022 in setting of GI illness/dehydration
Chronic pain syndrome on oxycodone daily
Echo 01/06/18:�Mild LVH, EF 50-55% possible lateral hypokinesis, normal RV, severely dilated LA, Mild to moderate MR, Mild aortic stenosis, peak/mean gradient 29/16, aortic valve area 1.6 cm�, Mild TR, pulmonary pressure 51-56 mmHg
Echo October 2018: Ejection fraction 60-65 percent, mild MR, mild , mild-moderate AI�������
Echo 07/2020: EF 60-65%, mild with MPG 14 mm Hg, TAM 1.7 cm2.
Echo 03/04/23:�EF 55-60% with mild MR, mild , aortic root 4 cm, trace pericardial effusion
Echo 06/04/23: EF 55 to 60%, mild concentric LVH, mild mitral stenosis with mean transmitral gradient 6 mmHg, moderate MR, mild peak/mean gradient 22/13 mmHg and TAM 1.4 cm sq, trace TR with pulmonary artery systolic pressure 26 mmHg mildly
dilated aortic root
Echo 08/28/23: EF 40-45%, pleural effusion, not assessed
JIAN 09/08/23: EF 40-45%, mod to sev MR, evidence of
Echo 09/26/23: EF 30-35%, mod MR, mild AI, aortic sclerosis no stenosis, PASP 45 mmHg
Echo 05/21/2024: EF 35 to 40%, moderate MR, mild to mod MS with mean gradient of 8 mmHg, mild to mod with mean gradient of 13 mmHg aortic valve area 1.2 cm�, mod to sev TR with PAP of 50-55 mmHg
Plan:
-Presented to emergency department 08/11/2024 with shortness of breath, increased edema and concern for acute on chronic heart failure.
-Still with significant lower extremity edema and patient feels her dry weight is closer to 140 pounds
-Not making significant progress with IV Lasix, will switch to IV Bumex to see if she responds
-Follow creatinine with diuresis
-Outpatient dose of Coreg 12.5 mg BID has been continued
-No MARIANO/ARB/aldosterone antagonist due to CAMRON on CKD. Creat 2.4, baseline 1.8
-Outpatient dose of Imdur ER 30 mg daily has been continued. Hydralazine previously stopped due to hypotension
-Outpatient dose of Farxiga 10 mg daily has been continued
-EF 35-40% by echo 05/21/24. and this was stable compared to echo from 09/26/23. No need to repeat echo.
-Counseled on low-salt diet, has been eating soups from [employer] which I suspect may be contributing to her decompensation
-Known persistent Afib/flutter. Cont Coreg and amiodarone 200 mg daily for adjunct rate control.
-Continue Eliquis 2.5mg BID (age 89 and Cre 2.4).
-History of CAD with PCI Aug 2023
-Outpatient doses of aspirin, atorvastatin 40 mg daily and Zetia 10 mg daily have been continued
-Consider stopping aspirin given significant bruising on dual therapy
HPI 08/12/2024:
Patient came to [facility] yesterday with increased SOB and edema and was admitted with CHF and cardiology was consulted for same. Patient was last admitted to 05/2024 with acute HF, but has managed to stay out of the hospital for the last few months.
Patient reports she has been compliant with Lasix 80 mg AM and 60 mg PM daily, but that she is not following any fluid restriction. Patient has noticed increased LOVELACE and LE edema. Patient thinks she is up 7 lbs from her dry weight. She denies any
chest pain, palpitations, or dizziness.
Progress Note - Angiography Technologist
Subjective
Date of Service: August 14, 2024
No acute overnight events. Patient's resting comfortably out of bed to chair today. Still reporting significant lower extremity edema.
Objective
Labs:
08/13/24 06:31
08/14/24 06:53
Labs
Hgb 9.7 g/dL (12.0-16.0) L 08/13/24 06:31
Hct 31.9 % (37.0-47.0) L 08/13/24 06:31
Plt Count 153 10^3/uL (130-400) 08/13/24 06:31
Sodium 141 mmol/L (135-145) 08/14/24 06:53
Potassium 3.7 mmol/L (3.5-5.1) 08/14/24 06:53
BUN 74 mg/dl (7-17) H 08/14/24 06:53
Creatinine 2.3 mg/dL (0.6-1.0) H 08/14/24 06:53
Glucose 90 mg/dl (70-99) 08/14/24 06:53
Vital Signs and I&O:
Vital Signs
Temp Pulse Resp BP Pulse Ox
97.7 F 82 16 112/50 99
08/14/24 07:25 08/14/24 11:50 08/14/24 11:50 08/14/24 11:50 08/14/24 07:25
Vital Signs
Temp Pulse Resp BP Pulse Ox
97.7 F 82 16 112/50 99
08/14/24 07:25 08/14/24 11:50 08/14/24 11:50 08/14/24 11:50 08/14/24 07:25
Intake & Output
08/12/24 08/13/24 08/14/24 08/15/24
06:59 06:59 06:59 06:59
Intake Total 1095 / 1095 240 / 240
Output Total 700 / 700 450 / 450 1075 / 1075
Balance 395 / 395 -210 / -210 -1075 / -1075
Physical Exam
Physical Exam
Gen: NAD, AAOx3
HEENT: NC/AT, sclera anicteric
Neck: No JVD
CV: Irregularly irregular
Lungs: No increased work of breathing on 3 L nasal cannula
Abd: S/ND
Ext: 1+ pitting bilateral LE edema
Skin: Warm, dry
Neuro: Non-focal
[2024-08-14 15:25] VITALS: BP 117/63
[2024-08-14] MEDS: BUMEX 2 MG IV ×2 (16:00→20:29)
[2024-08-14] MEDS: ZETIA 10 MG PO (17:17)
[2024-08-14 19:34] VITALS: BP 136/71
[2024-08-14] MEDS: PROTONIX 40 MG PO (22:20)
[2024-08-14] MEDS: PEPCID 20 MG PO (22:20)
[2024-08-14] MEDS: EFFEXOR XR 75 MG PO (22:20)
[2024-08-14 23:49] VITALS: BP 131/51
[2024-08-15] VITALS (7 sets, daily range): BP systolic 115–150; BP diastolic 51–72; BMI 26.4
[2024-08-15] MEDS: SYNTHROID 125 MCG PO (05:04)
[2024-08-15 08:08] LABS: ALT (SGPT) 50 U/L (0-35); AST (SGOT) 60 U/L (14-36); Albumin 2.8 g/dl (3.5-5.0); Alkaline Phosphatase 115 U/L (38-126); Blood Urea Nitrogen 71 mg/dl (7-17); Carbon Dioxide 35 mmol/L (22-30); Chloride 103 mmol/L (98-107); Estimated Creatinine Clearance 15 ml/min; Glucose 90 mg/dl (70-99); Magnesium 2.4 mg/dl (1.6-2.3); Potassium 2.9 mmol/L (3.5-5.1); Sodium 142 mmol/L (135-145); Total Bilirubin 0.9 mg/dl (0.2-1.3); Total Protein 5.8 g/dl (6.3-8.2); eGFR 21.04
[2024-08-15] MEDS: LIPITOR 40 MG PO (10:05)
[2024-08-15] MEDS: IMDUR (EXTENDED RELEASE) 30 MG PO (10:05)
[2024-08-15] MEDS: COREG 12.5 MG PO ×2 (10:05→20:37)
[2024-08-15] MEDS: THERAGRAN 1 TABLET PO (10:05)
[2024-08-15] MEDS: ASPIR LOW (ENTERIC COATED) 81 MG PO (10:07)
[2024-08-15] MEDS: DELTASONE 5 MG PO (10:07)
[2024-08-15] MEDS: FARXIGA 10 MG PO (10:07)
[2024-08-15] MEDS: KCL 20 MEQ PO ×2 (10:07→11:03)
[2024-08-15] MEDS: ELIQUIS 2.5 MG PO ×2 (10:07→20:37)
[2024-08-15] MEDS: PACERONE 200 MG PO (10:07)
[2024-08-15] MEDS: BUMEX 2 MG IV ×2 (10:08→20:36)
--- NOTE | 2024-08-15 10:28 | W.PN.CARDCBS ---
Today's Communication / Plan
-
Continue IV Bumex today, tentative transition to oral in the next 24 to 48 hours
Aggressive potassium repletion today
Impression / Plan
-
PCP: Dr. Figueroa
Cardiology: Dr. Santos
Impression:
Admitted 08/11/2024 with acute HF and CAMRON 08/11/24
Acute on chronic HFrEF, proBNP 8710
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
Persistent typical atrial flutter
Persistent atrial fibrillation
s/p successful CV 09/08/23
recurrent Afib/flutter since 09/09/23
Chronic Eliquis OAC
CAD
PCI LAD 2004 ([facility])
PCI RCA 07/2010 ([facility])
s/p OM stent 10/08/17 with residual 40% stenosis of mid LAD and 50-60% stenosis of prox PDA
s/p 2.5 mm Xience to mid LAD 09/04/23
Small B/L pleural effusions
s/p left thoracentesis w/ 900 cc removed 09/29/23, 900 cc removed 04/06/24, 800 cc removed 05/04/24
Cardiomyopathy, EF 35-40% by echo 05/21/24
HTN
Mild to mod mean gradient 13 mmHg and TAM 1.2 cm sq by echo 05/21/24
Mod MR, mild to mod MS with mean gradient 8 mmHg
Psoriatic arthritis
Polymyalgia rheumatica
Hyperlipidemia
h/o statin intolerance
Interstitial lung disease on chronic O2 at night
Hypothyroidism
Anxiety
Fibromyalgia
Hx cervical radiculopathy
Hx left rotator cuff tear
R radial pseudoaneurysm s/p repair 11/13/2023
Urethral stone w/ hydronephrosis 01/2018
Shingles 09/2022
Syncope 09/2022 in setting of GI illness/dehydration
Chronic pain syndrome on oxycodone daily
Echo 01/06/18:�Mild LVH, EF 50-55% possible lateral hypokinesis, normal RV, severely dilated LA, Mild to moderate MR, Mild aortic stenosis, peak/mean gradient 29/16, aortic valve area 1.6 cm�, Mild TR, pulmonary pressure 51-56 mmHg
Echo October 2018: Ejection fraction 60-65 percent, mild MR, mild , mild-moderate AI�������
Echo 07/2020: EF 60-65%, mild with MPG 14 mm Hg, TAM 1.7 cm2.
Echo 03/04/23:�EF 55-60% with mild MR, mild , aortic root 4 cm, trace pericardial effusion
Echo 06/04/23: EF 55 to 60%, mild concentric LVH, mild mitral stenosis with mean transmitral gradient 6 mmHg, moderate MR, mild peak/mean gradient 22/13 mmHg and TAM 1.4 cm sq, trace TR with pulmonary artery systolic pressure 26 mmHg mildly
dilated aortic root
Echo 08/28/23: EF 40-45%, pleural effusion, not assessed
JIAN 09/08/23: EF 40-45%, mod to sev MR, evidence of
Echo 09/26/23: EF 30-35%, mod MR, mild AI, aortic sclerosis no stenosis, PASP 45 mmHg
Echo 05/21/2024: EF 35 to 40%, moderate MR, mild to mod MS with mean gradient of 8 mmHg, mild to mod with mean gradient of 13 mmHg aortic valve area 1.2 cm�, mod to sev TR with PAP of 50-55 mmHg
Plan:
-Presented to emergency department 08/11/2024 with shortness of breath, increased edema and concern for acute on chronic heart failure.
-Improving lower extremity edema and weight is lowest on record, but patient feels her dry weight is closer to 140 pounds
-Responding to IV Bumex; did not make significant progress with higher dose of IV Lasix. Consider discharging on PO Bume. Hopefully can transition to oral in the next 24-48 hrs.
-Follow creatinine and electrolytes with diuresis. Aggressive K repletion ordered for 08/15.
-Outpatient dose of Coreg 12.5 mg BID has been continued
-No MARIANO/ARB/aldosterone antagonist due to CKD
-Outpatient dose of Imdur ER 30 mg daily has been continued. Hydralazine previously stopped due to hypotension
-Outpatient dose of Farxiga 10 mg daily has been continued
-EF 35-40% by echo 05/21/24. and this was stable compared to echo from 09/26/23. No need to repeat echo.
-Counseled on low-salt diet, has been eating soups from [employer] which I suspect may be contributing to her decompensation
-Known persistent Afib/flutter. Cont Coreg and amiodarone 200 mg daily for adjunct rate control.
-Continue Eliquis 2.5mg BID (age 89 and Cre 2.4).
-History of CAD with PCI Aug 2023
-Outpatient doses of aspirin, atorvastatin 40 mg daily and Zetia 10 mg daily have been continued
-Consider stopping aspirin given significant bruising on dual therapy, last stent was 08/2023
HPI 08/12/2024:
Patient came to [facility] yesterday with increased SOB and edema and was admitted with CHF and cardiology was consulted for same. Patient was last admitted to 05/2024 with acute HF, but has managed to stay out of the hospital for the last few months.
Patient reports she has been compliant with Lasix 80 mg AM and 60 mg PM daily, but that she is not following any fluid restriction. Patient has noticed increased LOVELACE and LE edema. Patient thinks she is up 7 lbs from her dry weight. She denies any
chest pain, palpitations, or dizziness.
Progress Note - Wheel Installer
Subjective
Date of Service: August 15, 2024
NAOE. Tells me LE edema is improving. No chest pain or SOB at rest.
Objective
Labs:
08/13/24 06:31
08/15/24 06:56
Labs
Hgb 9.7 g/dL (12.0-16.0) L 08/13/24 06:31
Hct 31.9 % (37.0-47.0) L 08/13/24 06:31
Plt Count 153 10^3/uL (130-400) 08/13/24 06:31
Sodium 142 mmol/L (135-145) 08/15/24 06:56
Potassium 2.9 mmol/L (3.5-5.1) L 08/15/24 06:56
BUN 71 mg/dl (7-17) H 08/15/24 06:56
Creatinine 2.2 mg/dL (0.6-1.0) H 08/15/24 06:56
Glucose 90 mg/dl (70-99) 08/15/24 06:56
Vital Signs and I&O:
Vital Signs
Temp Pulse Resp BP Pulse Ox
97.9 F 90 16 150/72 96
08/15/24 07:25 08/15/24 07:25 08/15/24 07:25 08/15/24 07:25 08/15/24 07:25
Vital Signs
Temp Pulse Resp BP Pulse Ox
97.9 F 90 16 150/72 96
08/15/24 07:25 08/15/24 07:25 08/15/24 07:25 08/15/24 07:25 08/15/24 07:25
Intake & Output
08/13/24 08/14/24 08/15/24 08/16/24
06:59 06:59 06:59 06:59
Intake Total 1095 / 1095 240 / 240 240 / 240
Output Total 700 / 700 450 / 450 2225 / 2225
Balance 395 / 395 -210 / - -1984 /
Physical Exam
Physical Exam
Gen: NAD, AAOx3
HEENT: NC/AT, sclera anicteric
Neck: No JVD
CV: Irregular irregular, NL s1/s2
Lungs: No increased work of breathing on 3 L nasal cannula
Abd: S/ND
Ext: 1+ pitting LE edema
Skin: Warm, dry
Neuro: Non-focal
[2024-08-15] MEDS: KCL 270 MEQ IV (10:45)
[2024-08-15] MEDS: ROCEPHIN 1000 MG IV (11:03)
[2024-08-15] MEDS: NSS (PRESERVATIVE FREE) 10 ML IV (11:03)
--- NOTE | 2024-08-15 12:02 | W.PN.HOSP.TC ---
Today's Communication/Plan
-
Continue diurses
Assessment / Plan
Assessment / Plan
Historical summary:
89 y/o F, hx of CHF, CAD, HTN, HLD, ILD on home O2 (2L) presented with 7 lb weight gain and LE Edema. She reports increasing LOVELACE. No chest pain. Admitted to noncompliance with oral fluid restriction (stating she drinks twice the restriction
amount). Also not compliant with compression therapy. Was seen at Cardiology office but states no changes were made. In ER, BNP 8710 and given IV Lasix + potassium.
A/P:
1. Acute on chronic HFrEF Diureses continues
recent echo 05/2024: EF 35-40 %. Moderate mitral regurgitation. Moderate mitral stenosis. Mild to moderate aortic stenosis. Moderate-severe tricuspid regurgitation. PASP 50-55 mmHg.
Please see daily cardiology note for recs on diuresis
Cont IV Lasix 60 mg BID; monitor I/Os, weights, Lytes
1.5 Hypokalemia - K 2.9
Chck daily and replete as needed
CHF education as not following fluid restriction
GDMT: BB/Imdur/Farxiga
DCA Cards on board
2. Acute metabolic encephalopathy/ hypoactive delirium , resolved
Pt has no h/o dementia per son. Per son, pt's baseline MS is AOX3 and conversant
MS improved, awake and conversant
Follow urine Cx, blood Cx, - urine contaminant, mixed iraida; BC NGTD
cover with empiric ceftriaxone for now
Final report likely tomorrow.
3. Chronic elevation of LFT
follow LFT
noted pt on amiodarone, defer to Card
4. CKD- creat 2.4 on admit, (range 1.8 - 2.7 over the past year)
-BMP this am2.2
-monitor while diuresing , monitor renal function and electrolytes
-avoid nephrotoxins
5. Hypoglycemia likely 2/2 poor PO intake
holding parameter to Farxiga
-gluc 91 on 08/13
6. CAD
7. PAF
8. Essential HTN
continue Amiodarone/Coreg/Eliquis/Imdur
9. HLD - statin/zetia
10. Chronic hypoxic respiratory failure on 2L NC
11. ILD on home O2 (2L)
continue chronic steroids
DVT ppx: Eliquis
Code: DNR/DNI
Dispo: PT OT rec HH
Anticipated Discharge: 24 - 48 hours
Subjective/Interval History
-
Date of Service: August 15, 2024
NO new complaints.
Objective Data
-
Labs:
Laboratory Results
08/15/24
06:56
Sodium 142
Potassium 2.9 L
Chloride 103
Carbon Dioxide 35 H
BUN 71 H
Creatinine 2.2 H
Glucose 90
Calcium 8.0 L
Total Bilirubin 0.9
AST 60 H
ALT 50 H
Alkaline Phosphatase 115
Vital Signs:
Vital Signs
Temp Pulse Resp BP Pulse Ox
97.7 F 95 16 129/65 96
08/15/24 11:05 08/15/24 11:05 08/15/24 11:05 08/15/24 11:05 08/15/24 11:05
I&O
08/14/24 08/15/24 08/16/24
06:59 06:59 06:59
Intake Total 240 / 240 240 / 240
Output Total 450 / 450 2225 / 2225
Balance -210 / - -1984 /
Review of Systems
-
History Source: Patient
All other systems: Reviewed and negative
Physical Exam
-
General: Well Developed, Well Nourished and No Apparent Distress
HEENT: Normocephalic
Respiratory: Crackles and Decreased Breath Sounds
Cardiac: Regular Rhythm and S1/S2
GI: Soft, Nontender and Nondistended
Musculoskeletal: Edema, Right Lower Extrem and Edema, Left Lower Extrem
Skin: Warm and Dry
Neuro: Awake and Alert
Psych: Calm
Data Reviewed
-
Labs: Labs Reviewed by me
[2024-08-15] MEDS: ZETIA 10 MG PO (17:15)
[2024-08-15] MEDS: DUONEB 3 ML INH (18:58)
[2024-08-15] MEDS: KCL 40 MEQ PO (20:36)
[2024-08-15] MEDS: PROTONIX 40 MG PO (21:06)
[2024-08-15] MEDS: EFFEXOR XR 75 MG PO (21:06)
--- NOTE | 2024-08-16 02:49 | PTCARENOTE ---
Pt with increased SOB at the end of dayshift. Pt appeared very anxious because of the breathing. SpO2=85-87% on 2L NC. O2 increased to 4L. SpO2= 93-95%. Rep called. Duoneb given. Pt is feeling better, but still dyspneic. SpO2=97% on 4L NC. Pt
breathing improved, SpO2 now=94-95% on 3L NC. Pt advised to rest for now. Purewick placed until pt breathing is stable, but later d/c per pt request. Will continue to monitor the pt.
[2024-08-16 03:29] VITALS: BP 122/65
[2024-08-16 05:07] VITALS: BMI 26.6
[2024-08-16] MEDS: SYNTHROID 125 MCG PO (05:09)
[2024-08-16 06:53] VITALS: BP 134/74
[2024-08-16 08:00] LABS: Hemoglobin 8.8 g/dL (12.0-16.0); Mean Corp Hgb Conc. 29.3 g/dL (33.0-37.0); Mean Corpuscular Hgb 25.6 pg (27.0-31.0); Mean Corpuscular Volume 87.2 fL (81.0-99.0); Mean Platelet Volume 10.2 fL (7.4-10.4); Platelet Count 165 10^3/uL (130-400); Red Blood Cell Count 3.44 10^6/uL (4.20-5.40); Red Cell Dist. Width 21.9 % (11.5-14.5); White Blood Cell Count 8.5 10^3/uL (4.8-10.8)
[2024-08-16 08:32] LABS: ALT (SGPT) 62 U/L (0-35); AST (SGOT) 86 U/L (14-36); Albumin 2.8 g/dl (3.5-5.0); Alkaline Phosphatase 117 U/L (38-126); Blood Urea Nitrogen 65 mg/dl (7-17); Calcium 8.1 mg/dl (8.4-10.2); Carbon Dioxide 37 mmol/L (22-30); Chloride 106 mmol/L (98-107); Estimated Creatinine Clearance 17 ml/min; Glucose 89 mg/dl (70-99); Potassium 3.9 mmol/L (3.5-5.1); Sodium 146 mmol/L (135-145); Total Bilirubin 0.9 mg/dl (0.2-1.3); Total Protein 5.9 g/dl (6.3-8.2); eGFR 25.08
--- NOTE | 2024-08-16 08:33 | W.PN.HOSP.TC ---
Today's Communication/Plan
-
Cleared by cardiology for discharge today
Assessment / Plan
Assessment / Plan
Historical summary:
89 y/o F, hx of CHF, CAD, HTN, HLD, ILD on home O2 (2L) presented with 7 lb weight gain and LE Edema. She reports increasing LOVELACE. No chest pain. Admitted to noncompliance with oral fluid restriction (stating she drinks twice the restriction
amount). Also not compliant with compression therapy. Was seen at Cardiology office but states no changes were made. In ER, BNP 8710 and given IV Lasix + potassium.
A/P:
1. Acute on chronic HFrEF Diureses continues
recent echo 05/2024: EF 35-40 %. Moderate mitral regurgitation. Moderate mitral stenosis. Mild to moderate aortic stenosis. Moderate-severe tricuspid regurgitation. PASP 50-55 mmHg.
Please see daily cardiology note for recs on diuresis
Resolving on Lasix 80 mg IV twice daily
Cleared by cardiology for discharge on Bumex 2 mg twice a day
1.5 Hypokalemia
Repleted and resolved, will discharge on increased dose of potassium chloride 40 mill equivalents twice daily
CHF education as not following fluid restriction
GDMT: BB/Imdur/Farxiga
DCA Cards on board
2. Acute metabolic encephalopathy/ hypoactive delirium , resolved
Pt has no h/o dementia per son. Per son, pt's baseline MS is AOX3 and conversant
MS improved, awake and conversant
Blood cultures, urine culture negative
Currently on IV Rocephin, no need for further antibiotics
3. Chronic elevation of LFT
follow LFT
noted pt on amiodarone, defer to Card
4. CKD- creat 2.4 on admit, (range 1.8 - 2.7 over the past year)
-Creatinine improved at 1.9
-monitor while diuresing , monitor renal function and electrolytes
-avoid nephrotoxins
5. Hypoglycemia likely 2/2 poor PO intake
holding parameter to Farxiga
-gluc 91 on 08/13
6. CAD
7. PAF
8. Essential HTN
Continue Amiodarone/Coreg/Eliquis/Imdur
9. HLD - statin/zetia
10. Chronic hypoxic respiratory failure on 2L NC
11. ILD on home O2 (2L)
continue chronic steroids
DVT ppx: Eliquis
Code: DNR/DNI
Dispo: PT OT rec HH
Physical Exam
General: Chronically ill-appearing, no acute distress
HEENT: Normocephalic, Atraumatic, EOMI, MMM
Respiratory: Clear to Auscultation bilaterally
Cardiac: Normal S1/S2, Regular Rate and Rhythm
GI: Soft, Nontender, Nondistended, Normal Bowel Sounds
Extremities: No Clubbing, Cyanosis
Bilateral lower extremity edema with right lower extremity wounds that are dressed
Neuro: Nonfocal/Grossly Intact
Psych: Calm, Cooperative
Derm: Scattered ecchymosis
Anticipated Discharge: Today
Subjective/Interval History
-
Date of Service: August 16, 2024
Patient reports her dyspnea with activity continues to improve. No chest pain, no nausea, no vomiting. No constipation, no diarrhea. No fever.
Objective Data
-
Labs:
Laboratory Results
08/16/24
07:18
WBC 8.5
Hgb 8.8 L
Hct 30.0 L
Plt Count 165
Sodium 146 H
Potassium 3.9 D
Chloride 106
Carbon Dioxide 37 H
BUN 65 H
Creatinine 1.9 H
Glucose 89
Calcium 8.1 L
Total Bilirubin 0.9
AST 86 H
ALT 62 H
Alkaline Phosphatase 117
Vital Signs:
Vital Signs
Temp Pulse Resp BP Pulse Ox
98.0 F 100 18 122/65 95
08/16/24 03:29 08/16/24 03:29 08/16/24 03:29 08/16/24 03:29 08/16/24 03:29
I&O
08/15/24 08/16/24 08/17/24
06:59 06:59 06:59
Intake Total 240 / 240 480 / 480
Output Total 2225 / 2225 1300 / 1300
Balance -1984 / -1984 -820 / -820
[2024-08-16] MEDS: IMDUR (EXTENDED RELEASE) 30 MG PO (09:11)
[2024-08-16] MEDS: DELTASONE 5 MG PO (09:11)
[2024-08-16] MEDS: ASPIR LOW (ENTERIC COATED) 81 MG PO (09:11)
[2024-08-16] MEDS: FARXIGA 10 MG PO (09:11)
[2024-08-16] MEDS: PACERONE 200 MG PO (09:11)
[2024-08-16] MEDS: KCL 40 MEQ PO (09:11)
[2024-08-16] MEDS: ELIQUIS 2.5 MG PO (09:13)
[2024-08-16] MEDS: THERAGRAN PO (09:13)
[2024-08-16] MEDS: COREG 12.5 MG PO (09:13)
[2024-08-16] MEDS: LIPITOR 40 MG PO (09:13)
[2024-08-16] MEDS: BUMEX 2 MG IV (09:13)
[2024-08-16 11:03] VITALS: BP 112/55
[2024-08-16] MEDS: ROCEPHIN 1000 MG IV (11:52)
[2024-08-16] MEDS: NSS (PRESERVATIVE FREE) 10 ML IV (11:53)
--- NOTE | 2024-08-16 13:49 | W.PN.CARDCBS ---
Addendum entered and electronically signed by Thaddeus Santos MD 08/16/24 14:00:
I saw and examined the patient.
The ASSISTANCE REPRESENTATIVE or PA's note was reviewed and I agree with the note.
Comment: General: Well developed, well nourished in NAD.
Neck: Supple, no JVD, HJR, carotids +2 B/L, no bruits bilaterally.
Heart: Non displaced PMI, irregular, 2/6 apical holosystolic murmur, no S3, S4, no rubs.
Lungs: Scattered rhonchi
Extremities: No clubbing, cyanosis or edema bilaterally.
Neuro: Grossly nonfocal, awake, alert and oriented x3.
Stable cardiology status for discharge with high risk of readmission. Changed to Bumex 2 mg p.o. twice daily. Discussed with primary service. Follow-up arranged. Discussed with patient in detail
Original Note:
Today's Communication / Plan
-
Switched from Lasix to Bumex 2 mg PO BID this admission
Cardiology f/u arranged
Impression / Plan
-
PCP: Dr. Figueroa
Cardiology: Dr. Santos
Impression:
Admitted 08/11/2024 with acute HF and CAMRON 08/11/24
Acute on chronic HFrEF, proBNP 8710
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
Persistent typical atrial flutter
Persistent atrial fibrillation
s/p successful CV 09/08/23
recurrent Afib/flutter since 09/09/23
Chronic Eliquis OAC
CAD
PCI LAD 2004 ([facility])
PCI RCA 07/2010 ([facility])
s/p OM stent 10/08/17 with residual 40% stenosis of mid LAD and 50-60% stenosis of prox PDA
s/p 2.5 mm Xience to mid LAD 09/04/23
Small B/L pleural effusions
s/p left thoracentesis w/ 900 cc removed 09/29/23, 900 cc removed 04/06/24, 800 cc removed 05/04/24
Cardiomyopathy, EF 35-40% by echo 05/21/24
HTN
Mild to mod mean gradient 13 mmHg and TAM 1.2 cm sq by echo 05/21/24
Mod MR, mild to mod MS with mean gradient 8 mmHg
Psoriatic arthritis
Polymyalgia rheumatica
Hyperlipidemia
h/o statin intolerance
Interstitial lung disease on chronic O2 at night
Hypothyroidism
Anxiety
Fibromyalgia
Hx cervical radiculopathy
Hx left rotator cuff tear
R radial pseudoaneurysm s/p repair 11/13/2023
Urethral stone w/ hydronephrosis 01/2018
Shingles 09/2022
Syncope 09/2022 in setting of GI illness/dehydration
Chronic pain syndrome on oxycodone daily
Echo 01/06/18:�Mild LVH, EF 50-55% possible lateral hypokinesis, normal RV, severely dilated LA, Mild to moderate MR, Mild aortic stenosis, peak/mean gradient 29/16, aortic valve area 1.6 cm�, Mild TR, pulmonary pressure 51-56 mmHg
Echo October 2018: Ejection fraction 60-65 percent, mild MR, mild , mild-moderate AI�������
Echo 07/2020: EF 60-65%, mild with MPG 14 mm Hg, TAM 1.7 cm2.
Echo 03/04/23:�EF 55-60% with mild MR, mild , aortic root 4 cm, trace pericardial effusion
Echo 06/04/23: EF 55 to 60%, mild concentric LVH, mild mitral stenosis with mean transmitral gradient 6 mmHg, moderate MR, mild peak/mean gradient 22/13 mmHg and TAM 1.4 cm sq, trace TR with pulmonary artery systolic pressure 26 mmHg mildly
dilated aortic root
Echo 08/28/23: EF 40-45%, pleural effusion, not assessed
JIAN 09/08/23: EF 40-45%, mod to sev MR, evidence of
Echo 09/26/23: EF 30-35%, mod MR, mild AI, aortic sclerosis no stenosis, PASP 45 mmHg
Echo 05/21/2024: EF 35 to 40%, moderate MR, mild to mod MS with mean gradient of 8 mmHg, mild to mod with mean gradient of 13 mmHg aortic valve area 1.2 cm�, mod to sev TR with PAP of 50-55 mmHg
Plan:
-Weight is down 2-3 lbs this admission. Patient was initially diuresed with Lasix 60 mg IV BID, but then transitioned to Bumex 2 mg IV BID and is going to be d/c'd to home on Bumex 2 mg PO BID instead of Lasix PO.
-Potassium as low as 2.9 with diuresis. New to KCl 40 meq BID.
-B/L pleural effusions were small and no indication for thoracentesis. When patient previously had left-sided thoracentesis in 05/2024 her effusions were moderate to large.
-EF 35-40% by echo 05/21/24. and this was stable compared to echo from 09/26/23. No need to repeat echo.
-Outpatient dose of Coreg 12.5 mg BID has been continued
-No MARIANO/ARB/aldosterone antagonist due to CAMRON on CKD.
-Outpatient dose of Imdur ER 30 mg daily has been continued. Hydralazine previously stopped due to hypotension
-Outpatient dose of Farxiga 10 mg daily has been continued
-ECG reviewed by me looks like Afib with HR 107. No acute ST changes.
-Patient with known persistent Afib/flutter. Cont Coreg and amiodarone 200 mg daily for adjunct rate control.
-Continue Eliquis 2.5mg BID (age 89 and Cre 2.6).
-Cre up to 2.6 on 08/12/24. Baseline Cre closer to 1.8. Follow Cre while diuresing
-Outpatient doses of atorvastatin 40 mg daily and Zetia 10 mg daily have been continued.
-Patient was not following salt or fluid restriction prior to admission, eating soups from [employer], but prior to this admission her last admission was 05/2024.
-Cardiology follow up arranged. Stable for d/c to home.
HPI 08/12/2024:
Patient came to [facility] yesterday with increased SOB and edema and was admitted with CHF and cardiology was consulted for same. Patient was last admitted to 05/2024 with acute HF, but has managed to stay out of the hospital for the last few months.
Patient reports she has been compliant with Lasix 80 mg AM and 60 mg PM daily, but that she is not following any fluid restriction. Patient has noticed increased LOVELACE and LE edema. Patient thinks she is up 7 lbs from her dry weight. She denies any
chest pain, palpitations, or dizziness.
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
Subjective
Date of Service: August 16, 2024
She feels better, wants to go home
Objective
Labs:
08/16/24 07:18
08/16/24 07:18
Labs
Hgb 8.8 g/dL (12.0-16.0) L 08/16/24 07:18
Hct 30.0 % (37.0-47.0) L 08/16/24 07:18
Plt Count 165 10^3/uL (130-400) 08/16/24 07:18
Sodium 146 mmol/L (135-145) H 08/16/24 07:18
Potassium 3.9 mmol/L (3.5-5.1) D 08/16/24 07:18
BUN 65 mg/dl (7-17) H 08/16/24 07:18
Creatinine 1.9 mg/dL (0.6-1.0) H 08/16/24 07:18
Glucose 89 mg/dl (70-99) 08/16/24 07:18
Vital Signs and I&O:
Vital Signs
Temp Pulse Resp BP Pulse Ox
97.9 F 103 18 112/55 92
08/16/24 11:03 08/16/24 11:03 08/16/24 11:03 08/16/24 11:03 08/16/24 11:03
Vital Signs
Temp Pulse Resp BP Pulse Ox
97.9 F 103 18 112/55 92
08/16/24 11:03 08/16/24 11:03 08/16/24 11:03 08/16/24 11:03 08/16/24 11:03
Intake & Output
08/14/24 08/15/24 08/16/24 08/17/24
06:59 06:59 06:59 06:59
Intake Total 240 / 240 240 / 240 480 / 480
Output Total 450 / 450 2225 / 2225 1300 / 1300
Balance -210 / -210 -1984 / -1985 -820 / -820
Physical Exam
Physical Exam
General: NAD, AAO x3
HEENT: EOMI, MMM
Heart: Afib on tele
Lungs: Wearing oxygen at 2 L. No audible wheeze.
Abd: ND
Ext: No B/L LE edema
Neuro: Nonfocal
--- NOTE | 2024-08-16 13:50 | W.DCSUMMARY ---
Discharge Summary
Discharge Data
Date of Admission: 08/11/24
Date of Discharge: 08/16/24
-
Pending Results: No
Hospital Course
Discharge diagnosis:
Acute on chronic heart failure with a reduced ejection fraction
Hypokalemia
Acute metabolic encephalopathy, likely from hospital delirium
Chronically elevated liver function test
Acute kidney injury superimposed on stage IV chronic kidney disease
Probable cardiorenal syndrome
Hypoglycemia
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
Coronary artery disease
Paroxysmal atrial fibrillation on Eliquis
Chronic hypoxic respiratory failure on 2 L at baseline
Interstitial lung disease on chronic steroids
Consults: Cardiology
Hospital course:
89-year-old female with a past medical history of chronic hypoxic respiratory failure on 2 L at baseline, atrial fibrillation on Eliquis, interstitial lung disease on chronic steroids, CAD, CKD, and CHF was admitted for acute on chronic heart
failure with a reduced ejection fraction. Patient was seen in conjunction with cardiology. She was diuresed with Lasix 60 mg IV twice daily. She had hypokalemia, this was repleted and resolved.
Patient had acute kidney injury superimposed on stage IV chronic kidney disease, likely from cardiorenal syndrome. Her creatinine improved with diuresis. Her creatinine was 1.9 on the day of discharge, down from 2.4 on admission.
Patient had hypoglycemia that was due to poor oral intake. Her oral intake improved, and her hypoglycemia resolved.
Patient's hospital course was complicated by acute metabolic encephalopathy, likely from hospital delirium. This was transient and resolved. She does not have a history of dementia per her son. She did receive 4 days of empiric Rocephin. Her
urine cultures and blood cultures were negative, there was no infectious source. She does not need any further antibiotics.
Patient is medically stable and cleared by cardiology for discharge. Cardiology recommends discharge on Bumex 2 mg twice a day. She is also discharged on an increased dose of potassium as well. She needs to follow-up with her primary care doctor
in 1 week, and cardiology in the office as scheduled.
Disposition: Home with home care
Discharge planning: Required 41 minutes
Discharge Plan
-
Patient Disposition: Home with Home Care
Discharge Diagnosis/Procedures: Congestive heart failure, hypokalemia, chronic kidney disease
Condition: Fair
Diet: Low Fat, Low Cholesterol, 2 Gram Sodium and Restrict fluids to 48 oz
Activity: As tolerated
Driving Restrictions: As prior to admission
Activity Restrictions/Additional Instructions:
Cardiology recommends you take Bumex 2 mg twice a day at 8 AM and 4 PM.
You have chronic kidney disease.
Please avoid all [id number] NSAID medications such as ibuprofen, naproxen, Aleve, Motrin, Advil.
These medications will worsen your kidney function.
Follow-up with your primary care doctor in 1 week, and cardiology in the office as scheduled.
Wound Care Instructions
Right Lateral Leg- clean with normal saline or soap and water. Apply Alginate and cover with ABD and wrap with marianela.
Change twice daily and as needed for drainage.
Air mattress
Compression with MARIANO to right lower leg
Encourage frequent turning/repositioning
Keep heels off-loaded with pillow or air cushion under heels.
Instructions: *[facility] Heart Failure Instructions
Referrals:
Ligia Rubio PA-C [Specified Professional Personl] - 09/01/24 9:40 am (You have cardiology follow up with Ligia Rubio PA-C on September 01 at 9:40 am [facility] [address] [facility]. If you are unable to make this appointment please call [phone]
to reschedule)
Wilbert Figueroa MD [Family Provider] - in one week
Prescriptions:
New
bumetanide 2 mg Tablet
2 mg PO BID Qty: 180 0RF
Continued
venlafaxine 75 MG capsule,extended release 24hr
75 mg PO HS
prednisone 5 MG tablet
5 mg PO DAILY
Patient Comments:
ezetimibe 10 MG tablet
10 mg PO QPM
therapeutic multivitamin Tablet
1 tab PO DAILY
Eliquis 2.5 mg Tablet
2.5 mg PO BID Qty: 60 11RF
atorvastatin 40 mg tablet
40 mg PO DAILY
carvedilol 12.5 mg Tablet
12.5 mg PO BID Qty: 60 0RF
aspirin 81 mg Tablet,Chewable
81 mg PO DAILY Qty: 0 0RF
dapagliflozin propanediol 10 mg Tablet
10 mg PO DAILY Qty: 30 0RF
isosorbide mononitrate 30 mg Tablet Extended Release 24 Hr
30 mg PO DAILY 30 Days Qty: 30 0RF
levothyroxine 125 mcg Tablet
125 mcg PO DAILY Qty: 0 0RF
famotidine [Pepcid] 20 mg Tablet
20 mg PO BID
amiodarone 200 mg tablet
200 mg PO DAILY
pantoprazole 40 mg tablet,delayed release (DR/EC)
40 mg PO HS
Changed
potassium chloride 20 mEq tablet,ER particles/crystals
40 meq PO BID Qty: 180 0RF
Patient Comments:
05/20/24: Patient supposed to take 2 tablets, but they are too big so she only takes 1
Discontinued
furosemide [Lasix] 40 mg tablet
60 mg PO QPM
furosemide [Lasix] 80 mg tablet
80 mg PO DAILY
Discharge Orders:
Discharge Patient (As Directed); Ordered 08/16/24
Ordered By: Mejia Acevedo
Discharge Date and Time
Discharge Date/Time: 08/16/24 17:04
Print Language: MONGOLIAN
--- NOTE | 2024-08-16 14:59 | VNURNOTE ---
Home Health Liaison met with patient at bedside to discuss [facility] nurse/therapy, visits, schedule and homebound status. Patient is agreeable and understands that visits at home will be 2-3 x per week to assess and teach medical management. Patient
has had [facility] in the recent past and is familiar with services. Patient confirms that she has a scale at home. Patient is aware that [facility] will contact them for start of care in 1-2 days after discharge from . [facility] referral completed in [facility].
[2024-08-16 15:35] VITALS: BP 115/61
== END 2024-08-16 17:04 | disposition home health service (06) | DRG 291 ==
LOC: 4 EAST ACU 18:43
PROVIDERS: Internal Medicine; ADMITTING PHYSICIAN Internal Medicine; ATTENDING PHYSICIAN Family Medicine; EMERGENCY PHYSICIAN Emergency Medicine; FAMILY PHYSICIAN Family Medicine; OTHER PHYSICIAN Internal Medicine Cardiovascular Disease
DX: I13.0 Hypertensive heart and chronic kidney disease with heart failure and stage 1 through stage 4 chronic kidney disease, or unspecified chronic kidney disease (principal); G93.41 Metabolic encephalopathy; I50.23 Acute on chronic systolic (congestive) heart failure; N17.9 Acute kidney failure, unspecified; J84.9 Interstitial pulmonary disease, unspecified; I48.19 Other persistent atrial fibrillation; J96.11 Chronic respiratory failure with hypoxia; I48.3 Typical atrial flutter; N18.32 Chronic kidney disease, stage 3b; I25.10 Atherosclerotic heart disease of native coronary artery without angina pectoris; E78.00 Pure hypercholesterolemia, unspecified; Z99.81 Dependence on supplemental oxygen; I35.0 Nonrheumatic aortic (valve) stenosis; I34.0 Nonrheumatic mitral (valve) insufficiency; I07.1 Rheumatic tricuspid insufficiency; E87.6 Hypokalemia; R41.0 Disorientation, unspecified; E16.2 Hypoglycemia, unspecified; Z79.52 Long term (current) use of systemic steroids; Z66 Do not resuscitate; Z88.0 Allergy status to penicillin; Z79.01 Long term (current) use of anticoagulants; Z79.82 Long term (current) use of aspirin; Z87.891 Personal history of nicotine dependence; I87.8 Other specified disorders of veins; L40.50 Arthropathic psoriasis, unspecified; M35.3 Polymyalgia rheumatica; E03.9 Hypothyroidism, unspecified; Z79.899 Other long term (current) drug therapy; F41.9 Anxiety disorder, unspecified; M79.7 Fibromyalgia; G89.4 Chronic pain syndrome; Z79.891 Long term (current) use of opiate analgesic; F32.A Depression, unspecified; Z79.890 Hormone replacement therapy; M48.00 Spinal stenosis, site unspecified; Z91.119 Patient's noncompliance with dietary regimen due to unspecified reason; Z95.5 Presence of coronary angioplasty implant and graft; Z96.653 Presence of artificial knee joint, bilateral
CPT/HCPCS: 71046; 80048; 80053; 81003; 81015; 82962; 83735; 83880; 85025; 85027; 87040; 87070; 87086; 93005; 94640; 96374; 97161; 97166; 97530; 99285